=== PATIENT | male | born 1955 | race Caucasian/White ===

== ENCOUNTER 2020-02-23 11:37 | Day surgery (SDC) | payer OTHER ==
[2020-02-23] MEDS ORDERED: NA CHLORIDE 0.9% 500 ML ONE (12:15)
--- OUTSIDE RECORDS SUMMARY | 2020-02-23 12:32 | XMS REPORT | Clinical Summary ---
:1955 Author Organization [facility] Address [address] [place] [address] Care Team Providers Name Role Phone Nando Olson MD Primary Care Provider Allergies No Known Allergies Medications Medication Sig Dispensed Refills Start Date End Date Status allopurinol Take 100 mg by 5 08/19/2016 Ac tive (ZYLOPRIM) 100 MG mouth once tablet daily. calcitriol Take 0.25 mcg 0 10/08/2016 Acti ve (ROCALTROL) 0.25 MCG by mouth every capsule other day. calcium carbonate Take 1 tablet 3 10/05/2016 Active oyster shell by mouth 2 (OS-AMBERLY) 500 mg (two) times a calcium (1,250 mg) day. tablet ELIQUIS 2.5 mg Take 2.5 mg by 2 10/06/2016 Active tablet mouth 2 (two) times a day. rosuvastatin Take 5 mg by 1 10/15/2016 Act jose (CRESTOR) 5 MG mouth once tablet daily. RENVELA 800 mg TAKE 2 TABLET 5 09/16/2016 Active tablet BY MOUTH WITH EACH MEAL carvedilol (COREG) 12.5 mg 2 0 10/14/2016 Active 6.25 MG tablet (two) times a day with meals. multivitamin capsule Take 1 capsule 0 Active by mouth daily. aspirin (ECOTRIN) 81 Take 81 mg by 0 Active MG enteric coated mouth daily. tablet syringe with needle As Directed 20 each 0 02/22/2018 Active 3 mL 25 x 5/8" syringeIndications: Vitamin deficiency, Intestinal malabsorption, unspecified type omeprazole TAKE 1 CAPSULE 90 capsule 1 10/17/2018 Ac tive (PriLOSEC) 40 MG BY MOUTH EVERY capsuleIndications: DAY Morbid obesity due to excess calories (HCC), Status post bariatric surgery cyanocobalamin 1,000 INJEC 1 ML 3 mL 0 01/24/2020 Active mcg/mL INTO injectionIndications SHOULD,THIGH, : Vitamin OR BUTTOCKS deficiency, EVERY 30 DAYS Intestinal malabsorption, unspecified type cyanocobalamin 1,000 Inject 1 mL 6 mL 1 02/22/2018 Discontinued mcg/mL (1,000 mcg 0 injectionIndications total) into : Vitamin the shoulder, deficiency, thigh, or Intestinal buttocks every malabsorption, 30 (thirty) unspecified type days. Start 1 week after surgery. cyanocobalamin 1,000 INJEC 1 ML 3 mL 0 10/03/2019 02 Discontinued mcg/mL INTO 0 injectionIndications SHOULD,THIGH, : Vitamin OR BUTTOCKS deficiency, EVERY 30 DAYS Intestinal malabsorption, unspecified type Active Problems Problem Noted Date Difficulty swallowing 08/18/2017 Dysphagia 08/17/2017 Type 2 diabetes mellitus 05/19/2017 Encounters Date Type Specialty Care Team Description 01/24/2020 Refill General Surgery Ede Garcia MD Vitamin deficiency; Intestinal jazmín bsorption, unspecified type 12/25/2019 Telephone General Surgery Amber Locke MA 12/12/2019 Refill General Surgery Ede Garcia MD Vitamin deficiency; Intestinal jazmín bsorption, unspecified type 10/02/2019 Refill General Surgery Ede Garcia MD Vitamin deficiency; Intestinal jazmín bsorption, unspecified type after 02/22/2019 Family History Medical History Relation Name Comments Diabetes Mother Hypertension Mother Relation Name Status Comments Mother Social History Tobacco Use Types Packs/Day Years Used Date Former Smoker Cigarettes 1.5 40 Quit: 2016 Smokeless Tobacco: Former User Chew Q uit: 1975 Alcohol Use Drinks/Week oz/Week Comments No Sex Assigned at Date Recorded Not on file Job Start Date Occupation Industry Not on file Not on file Not on file Travel History Travel Start Travel End No recent travel history available. Last Filed Vital Signs Not on file Plan of Treatment Health Maintenance Due Date Last Done Comments DIABETIC RETINAL EYE EXAM 1955 DIABETIC FOOT EXAM 1965 URINE MICROALBUMIN 1965 COLONOSCOPY SCREENING 2005 SHINGLES VACCINES (#1) 2005 INFLUENZA VACCINE 03/23/2020 Implants Implanted Type Area Associate Doctor Device Shelf Model / Identifier Expiration Serial / Date Lot Drain Wound Hbls Round Radopaq Trocar Delmy White 0.18in 15fr - [id number] Surgical N/A: N/A [employer] 9 / Implanted: 08/17/2017 at [facility] (Quantity not on file) Imp lants; [employer] / Expanders; [employer] Extenders; Surgical Wires Results Not on fileafter 02/22/2019 Advance Directives For more information, please contact: [phone] Type Date Recorded Patient Activities Officer Explanati on Advance Directives, Living Will and Medical Power of Marine Engineer
--- OUTSIDE RECORDS SUMMARY | 2020-02-23 12:33 | XMS REPORT | Continuity of Care Document ---
:1955 Author Organization [facility] Care Team Providers Name Role Phone [facility] Unavailable Un available Problems Problem Status Onset Classification Date Comments Sourc e Date Reported N18.6 Active 017 [facility] WOUND INFECTION Active 017 [place] Infection 03/07/2017 following a 017 [place] procedure, initial encounter Arteriovenous 03/07/2017 fistula, acquired 017 [place] ESRD Active 017 [facility] Anxiety (finding) Active Problem 06/04/2017 H OPID 012 [facility] Coronary Active Problem 06/04/2017 [facility] arteriosclerosis [place], (disorder) [facility] Conduction Active Problem 06/04/2017 [place] disorder of [place], heart (disorder) [facility] Cerebrovascular Active Problem 06/04/2017 OPID accident [facility], (disorder) [facility] Dependence on Active Problem 06/04/2017 not using at OPID continuous this time [facility] , positive airway pressure [facility] ventilation (finding) Diabetes mellitus Active Problem 06/04/2017 H OPID (disorder) [facility] End stage renal Active Problem 06/04/2017 Temporary fistula placed 2-3 months ago. pre op for fistula placement in left arm. 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/04/20171998 OPID infarction [facility] , (disorder) [facility] Obesity (disorder) Active Problem 06/04/2017 OPID [facility] Peripheral Active Problem 06/04/2017 [place]ber [facility] vascular disease [place], (disorder) [facility] Sleep apnea Active Problem 06/04/2017 OPID (finding) [facility] Medications Medication Details Route Status Patient Ordering Order Source Instructions Provider Date heparin 5,000 unit, Inactive Route: SUB-Q, 2016 [facility] Q8H, Dosing Weight 123.182, kg, Start date: 06/01/17 16:00:00 CDT, Duration: 30 day, Stop date: 07/01/17 8:00:00 EEO OFFICER Ofirmev 1,000 mg, Inactive Route: IV, 2016 [facility] ONCE, Dosing Weight 123.182, kg, Start date: 06/01/17 14:37:00 CDT, Stop date: 06/01/17 14:37:00 CDT Insulin Lispro Notes: Roll in Inactive palms of hands 2016 [facility] gently; Do not shake `vigorously. (Same as: Humalog ) "Single Patient Use Only " WASTE: F/P - Black; E - Viblio Trash Bin Stable for 28 days at room temperature. Expires in days from D ate Acetazolamide 250 mg, Route: Inactive IV, ONCE, 2016 [facility] Dosing Weight 123.182, kg, PRN Cramps, Start date: 06/01/17 14:07:00 CDT Ondansetron Notes: (Same Inactive as: Zofran) 2016 [facility] MEDICATION WASTE Product Size: 4 mg Product Wasted: ___ mg Meperidine Notes: (Same Inactive as: Demerol) 2016 [facility] "Use Precaution in Elderly, Seizure disorders, and Renal impairment&quot ; Promethazine 6.25 mg, Route: Inactive IVPB, ONCE, 2016 [facility] Dosing Weight 123.182, kg, PRN Nausea & Vomiting, Start date: 06/01/17 14:07:00 CDT Fentanyl Notes: (Same Inactive as: Sublimaze) 2016 [facility] Preservative free. Hydromorphone 0.5 mg, 0.5 mL, Inactive 10/10/ M H Route: IVP, 2016 [facility] Drug form: INJ, Q5Min, Dosing Weight 123.182, kg, PRN Pain Score 7-10, Start date: 06/01/17 14:07:00 CDT, Duration: 4 doses or times, Stop date: Limited # of times Flumazenil Notes: (Same Inactive as: Romazicon) 2016 [facility] Naloxone Notes: Same as Inactive Narcan 2016 [facility] Diphenhydramine Notes: (Same Inactive as: Benadryl) 2016 [facility] Hydralazine Notes: (Same Inactive as: Apresoline) 2016 [facility] Push over 5 minutes Metoprolol Notes: (Same Inactive as: Lopressor) 2016 [facility] Push over 2 minutes Acetaminophen Notes: Max Inactive acetaminophen 2016 [facility] 4000 mg/day (4 gm/day). (Same as: Tylenol Extra Strength) Acetaminophen 300 2 tab, PO, Q4H, Active MG / Codeine PRN Pain Score 2016 [facility] Phosphate 30 MG 4-6, # 24 tab, Oral Tablet 0 Refill(s) Zofran Notes: (Same Inactive as: Zofran) 2016 [facility] MEDICATION WASTE Product Size: 4 mg Product Wasted: ___ mg acetaminophen-cod Notes: Do not Inactive eine #3 exceed 4gm/day 2016 [facility] of acetaminophen. (Same as: Tylenol with Codeine # 3) Acetaminophen Notes: Do not Inactive exceed 4 2016 [facility] gm/day. (Same as: Tylenol) vancomycin (ANES) Route: IV, Drug Inactive 06/01 form: INJ, 2016 [facility] ONCE, Stop date: 06/01/17 12:53:00 CDT propofol (ANES) Route: IV, Drug Inactive form: INJ, 2016 [facility] ONCE, Stop date: 06/01/17 12:53:00 CDT lidocaine (ANES) Route: IV, Drug Inactive form: INJ, 2016 [facility] ONCE, Stop date: 06/01/17 12:53:00 CDT fentaNYL (ANES) Route: IV, Drug Inactive form: INJ, 2017 [facility] ONCE, Stop date: 06/01/17 12:53:00 CDT Cefazolin 2 gm, Route: Inactive IVPB, Drug 2016 [facility] form: INJ, ONCALL, Dosing Weight 123.636, kg, Start date: 06/01/17 11:00:00 CDT, Duration: 1 doses or times, ABX Indication: Surgical Prophylaxis Vancomycin 1 gm, Route: Inactive IV, ONCE, 2016 [facility] Dosing Weight 123.636, kg, Start date: 06/01/17 10:14:00 CDT, Stop date: 06/01/17 10:14:00 CDT, ABX Indication: Surgical Prophylaxis Benadryl Notes: (Same Inactive as: Benadryl) 2016 [facility] Ceftriaxone 1 gm, Route: Inactive IVPB, Drug 2016 [facility] form: PDR/INJ, ONCE, Dosing Weight 123.636, kg, Priority: STAT, Start date: 03/04/17 16:11:00 CDT, Duration: 1 doses or times, Stop date: 03/04/17 16:11:00 CDT, ABX Indication: Skin/Soft Tissue Infection Vancomycin 2001 mg: Inactive infuse over 2.5 2016s t hours MEDICATION WASTE Product Size: 1000 mg Product Wasted: ___ mg Cephalexin 500 MG 500 mg = 1 cap, Active Oral Capsule PO, BID, X 10 2017 [place] [Keflex] day, # 20 cap, 0 Refill(s) doxycycline 100 mg = 1 tab, Active hyclate 100 MG PO, Q12H, X 10 [place] Oral Tablet day, # 20 tab, 0 Refill(s) heparin Notes: porcine Inactive heparin 2016 [facility] Metoclopramide Notes: (Same Inactive as: Reglan) 2016 [facility] Flumazenil Notes: (Same Inactive as: Romazicon) 2016 [facility] Naloxone Notes: Same as Inactive Narcan 2016 [facility] Fentanyl Notes: (Same Inactive as: Sublimaze) 2016 [facility] Preservative free. Ondansetron 4 mg, Route: Inactive IVP, ONCE, 2016 [facility] Dosing Weight 124.091, kg, PRN Nausea & Vomiting, Start date: 02/26/17 11:26:00 CDT Labetalol Notes: (Same Inactive as: Normodyne, 2016 [facility] Trandate) Push over 2 minutes Give bolus over 2-3 minutes. Hydralazine Notes: (Same Inactive as: Apresoline) 2016 [facility] t Push over 5 minutes Acetaminophen 300 2 tab, PO, Q4H, Active MG / Codeine PRN Pain Score 2016 [place] Phosphate 30 MG 4-6, # 24 tab, Oral Tablet 0 Refill(s) Zofran Notes: (Same Inactive as: Zofran) 2016 [facility] MEDICATION WASTE Product Size: 4 mg Product Wasted: ___ mg acetaminophen-cod Notes: Do not Inactive eine #3 exceed 4gm/day 2016 [facility] of acetaminophen. (Same as: Tylenol with Codeine # 3) Acetaminophen Notes: Do not Inactive exceed 4 2016 [facility] gm/day. (Same as: Tylenol) protamine (ANES) Route: IV, Drug Inactive form: INJ, 2016 [facility] , Stop date: 02/26/17 10:10:00 CDT heparin (ANES) Route: IV, Drug Inactive form: INJ, 2016 [facility] , Stop date: 02/26/17 10:06:00 CDT propofol (ANES) Route: IV, Drug Inactive form: INJ, 2016 [facility] , Stop date: 02/26/17 9:41:00 CDT fentaNYL (ANES) Route: IV, Drug Inactive form: INJ, 2016 [facility] , Stop date: 02/26/17 9:31:00 CDT midazolam (ANES) Route: IV, Drug Inactive form: SOLN, 2016, Stop date: 02/26/17 9:26:00 CDT vancomycin (ANES) Route: IV, Drug Inactive 02/26 (ANES) form: INJ, 2016 [facility] Start date: 02/26/17 9:09:00 CDT, Stop date: 02/26/17 10:09:00 CDT sodium chloride Route: IV, Inactive 0.9% 500 ml INJ Total Volume: 2016 [place] (ANES) 500, Start date: 02/26/17 8:49:00 CDT, Stop date: 02/26/17 9:49:00 CDT Cefazolin Notes: Same as: Inactive Ancef 2017 [facility] insulin detemir 15 UNITS, Active 100 UNT/ML SUB-Q, BID, am 2017 [facility] est Injectable AND pm MEALS Solution [Levemir] Probiotic Formula 1 cap, PO, Active Daily, 2016 [facility] PROBIOTIC PEARLS COMPLETE( DIGESTIVE hEALTH) Multiple Vitamins 1 tab, PO, Active oral tablet Daily, 2016 [facility] SPECTRAVITE ( ULTRA MEN 50 PLUS) Calcium Carbonate 250 mg, PO, BID Active 2016 [facility] ferrous sulfate 325 mg = 1 tab, Active 325 mg oral PO, TID 2016 [facility] enteric coated tablet calcitriol 0.25 0.25 microgram Active H mcg oral capsule = 1 cap, PO, 2016 [place] Every Other Day rosuvastatin 5 mg 5 mg = 1 tab, Active oral tablet PO, Daily 2016 [facility] allopurinol 100 50 mg, PO, Active mg oral tablet Daily 2016 [facility] Hydralazine 50 mg = 1 tab, Active Hydrochloride 50 PO, TID [address] [facility] [address] MG Oral Tablet carvedilol 6.25 6.25 mg = 1 Active mg oral tablet tab, PO, BID 2016 [place] gabapentin 100 MG 200 mg = 2 cap, Active Oral Capsule PO, AFTER 2017 [facility] DIALYSIS sevelamer 800 mg = 1 tab, Active carbonate 800 MG PO, TID-Meals 2016 [place] Oral Tablet [Renvela] Sodium 650 mg = 1 tab, Active Bicarbonate 650 PO, TID 2016 [facility] t MG Oral Tablet Furosemide 40 MG 40 mg = 1 tab, Active Oral Tablet PO, Bedtime 2016 [facility] t Furosemide 40 MG 80 mg = 2 tab, Active Oral Tablet PO, QAM 2016 [facility] apixaban 2.5 MG 2.5 mg = 1 tab, Active Oral Tablet PO, BID 2016 [facility] [Eliquis] Allergies, Adverse Reactions, Alerts Substance Category Reaction Severity Reaction Status Date Comments S ource type Reported NKFA Assertion Drug Active allergy [place] Immunizations No Data Provided for This Section Results Order Name Results Value Reference Date Interpretation Comments [place] [facility] CHEM PANEL POC BUN 35 7 - 22 06/01 [facility] CHEM PANEL POC Glucose 118 70 - 99 06/01 [facility] CHEM PANEL POC Sodium 142 135 - 145 06/01 [facility] CHEM PANEL POC 4.6 3.5 - 5.1 06/01 Potassium [facility] CHEM PANEL POC Chloride 101 95 - 109 06/01 [facility] CHEM PANEL POC 11.6 14.0 - 10 Hemoglobin 18.0 [facility] CHEM PANEL POC 34.0 42.0 - 06/01 Hematocrit 54.0 [facility] HEMATOLOGY POC 12.2 14.0 - 06/01 Hemoglobin 18.0 [facility] HEMATOLOGY POC 36.0 42.0 - 10 Hematocrit 54.0 [facility] HEMATOLOGY POC BUN 33 7 - 22 06/01 [facility] HEMATOLOGY POC Glucose 173 70 - 99 06/01 [facility] HEMATOLOGY POC Chloride 100 95 - 109 06/01 [facility] HEMATOLOGY POC 4.3 3.5 - 5.1 06/01 Potassium [facility] HEMATOLOGY POC Sodium 142 135 - 145 06/01 [facility] CHEM PANEL eGFR 11 03/04 Comment: The [facility] eGFR is calculated using the CKD-EPI formula. In most young, healthy individuals the eGFR will be >90 mL/min/1.73m2 . The eGFR declines with age. An eGFR of 60-89 may be normal in some populations, particularly the elderly, for whom the CKD-EPI formula has not been extensively validated. Use of the eGFR is not recommended in the following populations:< br/>
Deirdre viduals with unstable creatinine concentration s, including patients and those with serious co-morbid conditions.<b r/>
Patie nts with extremes in muscle mass or diet.

The data above are obtained from the National Kidney Disease Education Program (NKDEP) which additionally recommends that when the eGFR is used in patients with extremes of body mass index for purposes of drug dosing, the eGFR should be multiplied by the estimated BMI. CHEM PANEL AGAP 10.8 10.0 - 03/04 MH 20.0 /2016 [facility] CHEM PANEL Calcium Lvl 9.2 8.5 - 10.5 03/04 [facility] CHEM PANEL BUN 35 7 - 22 03/04 [facility] CHEM PANEL Creatinine 5.40 0.50 - 07 MH Lvl 1.40 /2017 [facility] CHEM PANEL Glucose Lvl 156 70 - 99 03/04 [facility] CHEM PANEL Sodium Lvl 138 135 - 145 03/04 [facility] CHEM PANEL Potassium 3.8 3.5 - 5.1 / MH Lvl /2016 [facility] CHEM PANEL Chloride Lvl 97 95 - 109 03/04 [facility] CHEM PANEL CO2 34 24 - 32 03/04 [facility] HEMATOLOGY Segs-Bands # 5.4 1.5 - 8.1 03/04 /2016 [facility] HEMATOLOGY Basophils 0.5 0.0 - 1.0 03/04 [facility] HEMATOLOGY Monocytes # 1.1 0.0 - 0.8 03/04 [facility] HEMATOLOGY Lymphocytes 3.4 1.0 - 5.5 03/04 MH # /2017 [facility] HEMATOLOGY Basophils # 0.1 0.0 - 0.2 03/04 [facility] HEMATOLOGY Eosinophils 0.4 0.0 - 0.5 / MH # /2016 [facility] HEMATOLOGY Segs 52.7 45.0 - 03/04 MH 75.0 /2017 [facility] HEMATOLOGY Lymphocytes 32.9 20.0 - 03/04 MH 40.0 /2017 [facility] HEMATOLOGY Monocytes 10.3 2.0 - 12.0 03/04 /2016 [facility] HEMATOLOGY Eosinophils 3.6 0.0 - 4.0 03/04 /2016 [facility] HEMATOLOGY MCV 91.1 80.0 - 03/04 MH 94.0 /2017 [facility] HEMATOLOGY RBC 4.52 4.70 - 03/04 MH 6.10 /2016 [facility] HEMATOLOGY Hgb 13.5 14.0 - 03/04 MH 18.0 /2016 [facility] HEMATOLOGY MCH 29.9 27.0 - 03/04 MH 31.0 /2016 [facility] HEMATOLOGY Hct 41.2 42.0 - 03/04 MH 54.0 /2016 [facility] HEMATOLOGY MPV 8.1 7.4 - 10.4 03/04 /2016 [facility] HEMATOLOGY MCHC 32.8 32.0 - 03/04 MH 36.0 /2016 [facility] HEMATOLOGY RDW 14.1 11.5 - 03/04 MH 14.5 /2016 [facility] HEMATOLOGY Platelet 114 133 - 450 03/04 /2016 [facility] HEMATOLOGY WBC 10.3 3.7 - 10.4 03/04 /2016 [facility] HEMATOLOGY POC 13.9 14.0 - 02/26 Hemoglobin 18.0 /2016 [facility] HEMATOLOGY POC Glucose 126 70 - 99 02/26 /2016 [facility] HEMATOLOGY POC BUN 43 7 - 22 02/26 /2016 [facility] HEMATOLOGY POC 41.0 42.0 - 02/26 Hematocrit 54.0 /2016 [facility] HEMATOLOGY POC 4.1 3.5 - 5.1 02/26 Potassium /2016 [facility] HEMATOLOGY POC Chloride 103 95 - 109 02/26 /2016 [facility] HEMATOLOGY POC Sodium 142 135 - 145 02/26 /2016 [facility] ELECTROLYTE POC Sodium 141 135 - 145 02/26 S /2016 [facility] ELECTROLYTE POC BUN 46 7 - 22 02/26 S /2016 [facility] ELECTROLYTE POC Chloride 103 95 - 109 02/26 S /2016 [facility] ELECTROLYTE POC 4.3 3.5 - 5.1 02/26 S Potassium /2016 [facility] ELECTROLYTE POC Glucose 163 70 - 99 02/26 S /2016 [facility] ELECTROLYTE POC 15.6 14.0 - 02/26 S Hemoglobin 18.0 /2016 [facility] ELECTROLYTE POC 46.0 42.0 - 02/26 S Hematocrit 54.0 /2016 [facility] BLOOD BANK ABO/Rh O POS 02/24 RESULTS /2016 [facility] BLOOD BANK Antibody Negative 02/24 RESULTS Scrn (02/24/17 10:22 AM) /2016 [facility] est ELECTROLYTE AGAP 13.1 10.0 - 02/24 S 20.0 [facility] ELECTROLYTE eGFR 11 02/24 Result Comment: The [facility] eGFR is calculated using the CKD-EPI formula. In most young, healthy individuals the eGFR will be >90 mL/min/1.73m2 . The eGFR declines with age. An eGFR of 60-89 may be normal in some populations, particularly the elderly, for whom the CKD-EPI formula has not been extensively validated. Use of the eGFR is not recommended in the following populations:< br/>
Deirdre viduals with unstable creatinine concentration s, including patients and those with serious co-morbid conditions.<b r/>
Patie nts with extremes in muscle mass or diet.

The data above are obtained from the National Kidney Disease Education Program (NKDEP) which additionally recommends that when the eGFR is used in patients with extremes of body mass index for purposes of drug dosing, the eGFR should be multiplied by the estimated BMI. ELECTROLYTE Calcium Lvl 9.3 8.5 - 10.5 07/ S [facility] ELECTROLYTE Chloride Lvl 102 95 - 109 07/05 S [facility] ELECTROLYTE CO2 28 24 - 32 07/ S /2016 [facility] ELECTROLYTE Sodium Lvl 139 135 - 145 07/ S [facility] ELECTROLYTE Potassium 4.1 3.5 - 5.1 07/ S Lvl /2016 [facility] ELECTROLYTE Creatinine 5.30 0.50 - 07/ S Lvl 1.40 /2016 [facility] ELECTROLYTE BUN 47 7 - 22 07/ S /2016 [facility] ELECTROLYTE Glucose Lvl 129 70 - 99 / S [facility] HEMATOLOGY PT 12.7 12.0 - 07 14.7 /2016 [facility] HEMATOLOGY INR 0.93 0.85 - 07/05 1.17 /2016 [facility] HEMATOLOGY PTT 28.3 22.9 - 07 35.8 /2016 [facility] HEMATOLOGY MPV 8.7 7.4 - 10.4 02/24 [facility] HEMATOLOGY Platelet 120 133 - 450 07/ [facility] HEMATOLOGY MCHC 32.9 32.0 - 07/ 36.0 /2016 [facility] HEMATOLOGY RDW 14.7 11.5 - 07/ 14.5 /2016 [facility] HEMATOLOGY RBC 4.73 4.70 - 07/05 6.10 /2017 [facility] HEMATOLOGY Hgb 14.1 14.0 - 07/ 18.0 /2017 [facility] HEMATOLOGY WBC 12.8 3.7 - 10.4 07/ [facility] HEMATOLOGY MCV 90.2 80.0 - 07/ 94.0 /2016 [facility] HEMATOLOGY Hct 42.7 42.0 - 07/ 54.0 /2016 [facility] MCH 29.7 27.0 - 07/05 31.0 /2017 [facility] Basophils # 0.1 0.0 - 0.2 07/ [facility] HEMATOLOGY Monocytes 8.0 2.0 - 12.0 07/ /2016 [facility] HEMATOLOGY Basophils 1.0 0.0 - 1.0 / /2016 [facility] HEMATOLOGY Segs-Bands # 7.6 1.5 - 8.1 02/24 /2016 [facility] HEMATOLOGY Eosinophils 3.4 0.0 - 4.0 / /2016 [facility] HEMATOLOGY Lymphocytes 3.6 1.0 - 5.5 / # /2017 [facility] HEMATOLOGY Lymphocytes 28.2 20.0 - 07 MH 40.0 /2017 [facility] HEMATOLOGY Eosinophils 0.4 0.0 - 0.5 / # /2017 [facility] HEMATOLOGY Monocytes # 1.0 0.0 - 0.8 02/24 /2016 [facility] HEMATOLOGY Segs 59.4 45.0 - 07 75.0 /2016 [facility] SPECIAL Hgb A1C 8.0 <=5.6 % 02/24 CHEMISTRY /2016 [facility] Pathology Reports No Data Provided for This Section Diagnostic Reports Report Value Date Source Chest 1view DX Chest 1view DX 02/24/2017 [facility] CLINICAL HISTORY:pre-op for fistula placement in left arm, temporary fistula placed 2-3 months ago - pre-op for fistula placement in left arm, temporary fistula placed 2-3 months ago COMPARISON: 10/10/2010 FINDINGS: Limited AP portable study. SUPPORT DEVICES: Right IJ ca theter terminates in the region of SVC right atrial junction. LUNGS: Lungs are reasonably well inflated. No consolidation or any significant effusion. No pneumothorax is evident. Small granuloma, left lung base. CARDIOVASCULAR: Cardiac silh ouette size is within normal limits. No pulmonary edema. MEDIASTINUM/NORMA: Trachea is midline. No contour abnormality is noted. Calcified lymph nodes are noted at the left hilum unchanged from previous study. BONE AND SOFT TISSUES: No ac carmen abnormality is noted. Left shoulder arthroplasty. IMPRESSION: No acute abnormality is noted in the chest. SL: [id number] Consultation Notes No Data Provided for This Section Discharge Summaries No Data Provided for This Section History and Physicals No Data Provided for This Section Vital Signs Vital Sign Value Date Comments Source Systolic (mm Hg) 120 06/01/2017 [facility] Diastolic (mm Hg) 70 06/01/2017 [facility] Respitory Rate 15 06/01/2017 [facility] Systolic (mm Hg) 108 06/01/2017 [facility] [place] Diastolic (mm Hg) 56 06/01/[address] Respitory Rate 19 06/01/2017 [place] Systolic (mm Hg) 118 06/01/2017 [place] Diastolic (mm Hg) 70 06/01/[address] Respitory Rate 10 06/01/2017 [place] Temperature Oral (F) 98.5 F 06/01/2017 [facility] BMI Calculated 38.97 05/31/2017 [facility] Height 177.8 cm 05/31/2017 [facility] Weight 123.182 05/31/2017 [place] Systolic (mm Hg) 126 03/04/2017 [place] Diastolic (mm Hg) 88 03/04/2017 [facility] st Temperature Oral (F) 97.9 F 03/04/2017 [place] Respitory Rate 20 03/04/2017 [facility] Heart Rate 70 03/04/2017 [facility] Respitory Rate 20 03/04/2017 [facility] Heart Rate 70 03/04/2017 [facility] Systolic (mm Hg) 128 03/04/2017 [place] Diastolic (mm Hg) 71 03/04/2017 [facility] st BMI Calculated 42.69 03/04/2017 [facility] Height 170.18 cm 03/04/2017 [facility] Weight 123.636 03/04/2017 [place] Respitory Rate 20 03/04/2017 [facility] Heart Rate 73 03/04/2017 [facility] Temperature Oral (F) 99 F 03/04/2017 [place] Systolic (mm Hg) 131 03/04/2017 [place] Diastolic (mm Hg) 67 03/04/[address] Respitory Rate 18 02/26/2017 [place] Systolic (mm Hg) 137 02/26/2017 [place] Diastolic (mm Hg) 76 02/26/[address] Respitory Rate 8 02/26/2017 [place] Systolic (mm Hg) 127 02/26/2017 [place] Diastolic (mm Hg) 74 02/26/[address] Respitory Rate 13 02/26/2017 [place] Systolic (mm Hg) 133 02/26/2017 [place] Diastolic (mm Hg) 71 02/26/2017 [facility] st Temperature Oral (F) 97.9 F 02/26/2017 [place] Heart Rate 73 02/24/2017 [facility] Temperature Oral (F) 99.2 F 02/24/2017 [facility] Weight 124.091 02/24/2017 [facility] BMI Calculated 39.25 02/24/2017 [facility] Height 177.8 cm 02/24/2017 [facility] Encounters Location Location Encounter Encounter Reason Attending ADM [place] Stat us Source Details Type Number For Provider Date Date Visit [facility] Outpt Diag [id number] [facility] 02/24 02/25 [facility] [facility] [id number] Elder 02/26 02/26 [facility] [id number] Bill Khan 03/04 03/04 [facility]2016 [facility] [id number] Elder 06/01 06/01 [facility] Procedures Procedure Code Date Perfomer Comments Source Central line [id number] [facility]<sup>1</s 7 up> AV - Creation [place] [id number] [facility] [place]iovenous 6 fistula Procedure<sup>2, [id number] left ACL [facility] [place]</sup> repairLeft knee arthroscopy Procedure [id number] OPID [facility] Procedure<sup>1, [id number] left ACL [facility] 2</sup> repairLeft knee [facility] , arthroscopy [facility] Assessment and Plan Assessment and Plan Date Source Extracted from:Title: Clinical Document 02/26/2017 [facility] Author: Elder Reynolds MD Date: 02/26/17 PATIENT NAME: SIMONE WALLER DATE OF OPERATION: 02/26/2017 PREOPERATIVE DIAGNOSES: 1. End-stage renal disease. 2. Diabetes. 3. History of stroke. 4. Hypertension. POSTOPERATIVE DIAGNOSES: 1. End-stage renal disease. 2. Diabetes. 3. History of stroke. 4. Hypertension. PROCEDURE(S): 1. Left arm venogram. 2. Creation of left wrist AV fistula. 3. Superior venacavogram. SURGEON: Elder Reynolds MD WASTEWATER ANALYST: CHANTAL Martines ANESTHESIA: General by [place]. ESTIMATED BLOOD LOSS: 10. COMPLICATIONS: None. COUNTS: Correct. SPECIMENS: None. FINDINGS: Radial artery had an excellent pulse. It is somewhat calcified. There was excellent flow through the fistula post procedure. Strong Doppler signal in the hand. The vein was of good size and caliber. The cephalic vein is not in continuity in t he upper arm. However, the cephalic vein is in continuity through a very large medial cubital branch to the basilic and drains through an excellent basilic system. There is no central venous obstruction. DISPOSITION: PACU stable. HISTORY: The patient is a 61-year-old male with e nd-stage kidney disease. He currently receives dialysis via right internal jugular vein tunnel dialysis catheter. He needs long-term dialysis access and comes to the hospital today for creation of the s aretha. Appropriate informed consent was obtained after risks, benefits and alternatives were described. PROCEDURE: The patient was brought to the operating room and placed supine on the operating room table. After a satisfactory induction of anesthesia, the left upper extremity was prepped and draped in a usual fas ion. The skin overlying the distal radiu s was anesthetized with lidocaine and a longitudinal incision was made. Through this incision, the cephalic vein was isolated. A side branch was clipped and ligat ed distally. An angiocath was placed int o the side branch into the cephalic vein proper and venograms and central venous imaging studies were then performed using real-time digital subtraction angiograp hy. Having identified the venous anatomy and being quite satisfied, we elected to proceed. The catheter was removed. The side branch was doubly ligated. The vein was then mobilized extensively. The radi al artery was next mobilized extensively . Small branches were divided between clips. The patient was heparinized.. The vein was ligated and divided distally. The distal end was spatulated and prepared f or anastomosis. The radial arteries were controlled and opened with an 11-blade scissors. An end-to-side anastomosis was then fashioned between vein and artery using 7-0 Prolene in a running fashi on. The anastomosis was de-aired and con trol was released. The anastomosis was hemostatic. Doppler value evaluation of the fistula revealed excellent flow with excellent diastolic runoff. Evaluation of the hand revealed excellent triphasic Do ppler signals in the deep and superficial palmar arches. Protamine was then administered. The wound was irrigated with antibiotic solution, closed in layers and d ressed. There were no complications. The patient was extubated and brought to the PACU in stable condition. Elder Reynolds MD Date Dictated: 02/26/2017 Date Transcribed: 02/26/2017 TT/MEERA Plan of Care No Data Provided for This Section Social History Social History Date Source Social History TypeResponse 05/31/2017 [facility] Substance Abuse Use: None. Exercise Self assessment: Fair condition. Exercise type: Walking. Employment/School Status: Employed. 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 Alcohol Current, Type Beer. Frequency: 1-2 times per year. Smoking Status Former smoker; Type: Cigarettes; Ready t o change: No; Concerns about tobacco use in household: No; Exposure to Tobacco Smoke None; Cigarette Smoking Last 365 Days No; Reg Smoking Cessation Counseling No1 1quit last 2015 Social History TypeResponse 02/24/2017 VLADIMIR ibrahim Substance Abuse Use: None. Exercise Exercise type: Walking. Employment/School Status: Employed. 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 Alcohol Never Smoking Status Former smoker; Ready to change: No; Conc erns about tobacco use in household: No; Exposure to Tobacco Smoke None; Cigarette Smoking Last 365 Days No; Reg Smoking Cessation Counseling No1 1quit last 2015 Family History No Data Provided for This Section Advance Directives No Data Provided for This Section Functional Status No Data Provided for This Section
[2020-02-23] MEDS ORDERED: FUROSEMIDE 40 MG/4 ML VIAL ONE (15:18)
[2020-02-23] MEDS ORDERED: NA CHLORIDE 0.9% 250 ML ONE (15:36)
[2020-02-23 16:59] VITALS: BMI 31.7
[2020-02-23 17:03] VITALS: O2SAT 95
[2020-02-23 18:34] VITALS: BP 156/63; TEMP 99.1
[2020-02-23 19:37] LABS: Hematocrit 23.1 % (39.6-49.0)
== END 2020-02-23 19:30 | disposition home or self-care (01) ==
LOC: DS 11:37
PROVIDERS: ATTEND Internal Medicine
DX: N18.6 End stage renal disease (principal); D63.1 Anemia in chronic kidney disease
CPT/HCPCS: 36415; 86900; 86850; 86901; 85018; 85014; 36430; J1940; P9016 ×2; J7030; J7040

== ENCOUNTER 2020-03-01 11:15 | Day surgery (SDC) | payer OTHER ==
[2020-03-01] MEDS ORDERED: NA CHLORIDE 0.9% 500 ML ONE (11:32)
--- OUTSIDE RECORDS SUMMARY | 2020-03-01 11:45 | XMS REPORT | Clinical Summary ---
:1955 Author Organization [facility] Address [address] [place] [address] Care Team Providers Name Role Phone Nando [...] unspecified type 12/25/2019 Telephone General Surgery Amber Reynolds MA 12/12/2019 Refill General Surgery Ede Garcia MD Vitamin deficiency; Intestinal jazmín bsorption, unspecified type 10/02/2019 Refill General Surgery Ede Garcia MD Vitamin deficiency; Intestinal jazmín bsorption, unspecified type after 03/01/2019 Family History Medical History Relation Name Comments [...] INFLUENZA VACCINE 03/23/2020 Implants Implanted Type Area Skip Pit Worker Device Shelf Model / Identifier Expiration Serial / Date Lot Drain Wound Hbls Round Radopaq Trocar Delmy White 0.18in 15fr - [id number] Surgical N/A: N/A [employer] DIV OF 9 / Implanted: 08/17/2017 at [facility] (Quantity not on file) Imp lants; [employer] & / Expanders; [employer]URA Extenders; Surgical Wires Results Not on fileafter 03/01/2019 Advance Directives For more information, please contact: [phone] Type Date Recorded 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
--- OUTSIDE RECORDS SUMMARY | 2020-03-01 11:47 | XMS REPORT | Continuity of Care Document ---
:1955 Author Organization [employer] Care Team Providers Name Role Phone [employer] Unavailable Un available Problems Problem Status Onset Classification Date Comments Sourc e Date Reported N18.6 Active 017 [facility] WOUND INFECTION Active 017 [place] Infection 03/07/2017 following a 017 [place] procedure, initial encounter Arteriovenous 03/07/2017 fistula, acquired 017 [place] ESRD Active 017 [facility] Anxiety (finding) Active Problem 06/04/2017 H OPID 012 [facility] Coronary Active Problem 06/04/2017 [facility] arteriosclerosis [place], (disorder) [facility] Conduction Active Problem 06/04/2017 [facility] disorder of the [place], heart (disorder) [facility] Cerebrovascular Active Problem 06/04/2017 OPID accident [facility], (disorder) [facility] Dependence on Active Problem 06/04/2017 not using at OPID continuous this time [facility] , positive airway pressure [facility] ventilation (finding) Diabetes mellitus Active Problem 06/04/2017 H OPID (disorder) [facility] End stage renal Active Problem 06/04/2017 Temporary fistula placed 2-3 months ago. pre op for fistula placement in left arm. OPID disease (disorder) hemodialysi s at home [facility] Fracture of Resolved Problem 06/04/20172012 OPID shoulder [facility], (disorder) [facility] Hyperlipidemia Active Problem 06/04/2017 O PID (disorder) [facility] Hypertensive Active Problem 06/04/2017 OPI D disorder, systemic [place], arterial (disorder) [facility] Intracranial Resolved Problem 06/04/2017 patietn had O PID venous thrombosis stroke [place], (disorder) [facility] Myocardial Resolved Problem 06/04/20171998 OPID infarction [facility] , (disorder) [facility] Obesity (disorder) Active Problem 06/04/2017 OPID [facility] Peripheral Active Problem 06/04/2017 amber OP[facility] vascular disease [place], (disorder) [facility] Sleep apnea Active Problem 06/04/2017 OPID (finding) [facility] Medications Medication Details Route Status Patient Ordering Order Source Instructions Provider Date heparin 5,000 unit, Inactive Route: SUB-Q, 2016 [facility] Q8H, Dosing Weight 123.182, kg, Start date: 06/01/17 16:00:00 CDT, Duration: 30 day, Stop date: 07/01/17 8:00:00 [employer]IST [employer] 1,000 mg, Inactive Route: IV, 2016 [facility] ONCE, Dosing Weight 123.182, kg, Start date: 06/01/17 14:37:00 CDT, Stop date: 06/01/17 14:37:00 CDT Insulin Lispro Notes: Roll in Inactive palms of hands 2016 [facility] gently; Do not shake `vigorously. (Same as: Humalog ) "Single Patient Use Only " WASTE: F/P - Black; E - [employer] Trash Bin Stable for 28 days at room temperature. Expires in days from D ate Acetazolamide 250 mg, Route: Inactive IV, ONCE, 2016 [facility] Dosing Weight 123.182, kg, PRN Cramps, Start date: 06/01/17 14:07:00 CDT Ondansetron Notes: (Same Inactive as: Zofran) 2016 [facility] MEDICATION WASTE Product Size: 4 mg Product Wasted: ___ mg Meperidine Notes: (Same Inactive as: Demerol) 2016 [facility] "Use Precaution in Elderly, Seizure disorders, and Renal impairment&quot ; Promethazine 6.25 mg, Route: Inactive IVPB, ONCE, 2016 [facility] Dosing Weight 123.182, kg, PRN Nausea & Vomiting, Start date: 06/01/17 14:07:00 CDT Fentanyl Notes: (Same Inactive as: Sublimaze) 2016 [facility] Preservative free. Hydromorphone 0.5 mg, 0.5 mL, Inactive 10/10/ M H Route: IVP, 2016 [facility] Drug form: INJ, Q5Min, Dosing Weight 123.182, kg, PRN Pain Score 7-10, Start date: 06/01/17 14:07:00 CDT, Duration: 4 doses or times, Stop date: Limited # of times Flumazenil Notes: (Same Inactive as: Romazicon) 2016 [facility] Naloxone Notes: Same as Inactive Narcan 2016 [facility] Diphenhydramine Notes: (Same Inactive as: Benadryl) 2016 [facility] Hydralazine Notes: (Same Inactive as: Apresoline) 2016 [facility] Push over 5 minutes Metoprolol Notes: (Same Inactive as: Lopressor) 2016 [facility] Push over 2 minutes Acetaminophen Notes: Max Inactive acetaminophen 2016 [facility] 4000 mg/day (4 gm/day). (Same as: Tylenol Extra Strength) Acetaminophen 300 2 tab, PO, Q4H, Active MG / Codeine PRN Pain Score 2016 [facility] Phosphate 30 MG 4-6, # 24 tab, Oral Tablet 0 Refill(s) Zofran Notes: (Same Inactive as: Zofran) 2016 [facility] MEDICATION WASTE Product Size: 4 mg Product Wasted: ___ mg acetaminophen-cod Notes: Do not Inactive eine #3 exceed 4gm/day 2016 [facility] of acetaminophen. (Same as: Tylenol with Codeine # 3) Acetaminophen Notes: Do not Inactive exceed 4 2016 [facility] gm/day. (Same as: Tylenol) vancomycin (ANES) Route: IV, Drug Inactive 06/01 form: INJ, 2016 [facility] ONCE, Stop date: 06/01/17 12:53:00 CDT propofol (ANES) Route: IV, Drug Inactive form: INJ, 2016 [facility] ONCE, Stop date: 06/01/17 12:53:00 CDT lidocaine (ANES) Route: IV, Drug Inactive form: INJ, 2016 [facility] ONCE, Stop date: 06/01/17 12:53:00 CDT fentaNYL (ANES) Route: IV, Drug Inactive form: INJ, 2017 [facility] ONCE, Stop date: 06/01/17 12:53:00 CDT Cefazolin 2 gm, Route: Inactive IVPB, Drug 2016 [facility] form: INJ, ONCALL, Dosing Weight 123.636, kg, Start date: 06/01/17 11:00:00 CDT, Duration: 1 doses or times, ABX Indication: Surgical Prophylaxis Vancomycin 1 gm, Route: Inactive IV, ONCE, 2016 [facility] Dosing Weight 123.636, kg, Start date: 06/01/17 10:14:00 CDT, Stop date: 06/01/17 10:14:00 CDT, ABX Indication: Surgical Prophylaxis Benadryl Notes: (Same Inactive as: Benadryl) 2016 [facility] Ceftriaxone 1 gm, Route: Inactive IVPB, Drug 2016 [facility] form: PDR/INJ, ONCE, Dosing Weight 123.636, [...] Oral Capsule PO, BID, X 10 2017 [place] [Keflex] day, # 20 cap, 0 Refill(s) doxycycline 100 mg = 1 tab, Active hyclate 100 MG PO, Q12H, X 10 2017 [place] Oral Tablet day, # 20 tab, 0 Refill(s) heparin Notes: porcine Inactive heparin 2016 [facility] Metoclopramide Notes: (Same Inactive as: Reglan) 2016 [facility] Flumazenil Notes: (Same Inactive as: Romazicon) 2016 [facility] Naloxone Notes: Same as Inactive Narcan 2016 [facility] Fentanyl Notes: (Same Inactive as: Sublimaze) 2016 [facility] Preservative free. Ondansetron 4 mg, Route: Inactive IVP, ONCE, 2016 [facility] Dosing Weight 124.091, kg, PRN Nausea & Vomiting, Start date: 02/26/17 11:26:00 CDT Labetalol Notes: (Same Inactive as: Normodyne, 2016 [facility] Trandate) Push over 2 minutes Give bolus over 2-3 minutes. Hydralazine Notes: (Same Inactive as: Apresoline) 2016 [facility] t Push over 5 minutes Acetaminophen 300 2 tab, PO, Q4H, Active MG / Codeine PRN Pain Score 2016 [place] Phosphate 30 MG 4-6, # 24 tab, Oral Tablet 0 Refill(s) Zofran Notes: (Same Inactive as: Zofran) 2016 [facility] MEDICATION WASTE Product Size: 4 mg Product Wasted: ___ mg acetaminophen-cod Notes: Do not Inactive eine #3 exceed 4gm/day 2016 [facility] of acetaminophen. (Same as: Tylenol with Codeine # 3) Acetaminophen Notes: Do not Inactive exceed 4 2016 [facility] gm/day. (Same as: Tylenol) protamine (ANES) Route: IV, Drug Inactive form: INJ, 2016 [facility] , Stop date: 02/26/17 10:10:00 CDT heparin (ANES) Route: IV, Drug Inactive form: INJ, 2016 [facility] , Stop date: 02/26/17 10:06:00 CDT propofol (ANES) Route: IV, Drug Inactive form: INJ, 2016 [facility] , Stop date: 02/26/17 9:41:00 CDT fentaNYL (ANES) Route: IV, Drug Inactive form: INJ, 2016 [facility] , Stop date: 02/26/17 9:31:00 CDT midazolam (ANES) Route: IV, Drug Inactive form: SOLN, 2016, Stop date: 02/26/17 9:26:00 CDT vancomycin (ANES) Route: IV, Drug Inactive 02/26 (ANES) form: INJ, 2016 [facility] Start date: 02/26/17 9:09:00 CDT, Stop date: 02/26/17 10:09:00 CDT sodium chloride Route: IV, Inactive 0.9% 500 ml INJ Total Volume: 2016 [place] (ANES) 500, Start date: 02/26/17 8:49:00 CDT, Stop date: 02/26/17 9:49:00 CDT Cefazolin Notes: Same as: Inactive Ancef 2017 [facility] insulin detemir 15 UNITS, Active 100 UNT/ML SUB-Q, BID, am 2017 [facility] est Injectable AND pm MEALS Solution [Levemir] Probiotic Formula 1 cap, PO, Active Daily, 2016 [facility] PROBIOTIC PEARLS COMPLETE( DIGESTIVE hEALTH) Multiple Vitamins 1 tab, PO, Active oral tablet Daily, 2016 [facility] SPECTRAVITE ( ULTRA MEN 50 PLUS) Calcium Carbonate 250 mg, PO, BID Active 2016 [facility] ferrous sulfate 325 mg = 1 tab, Active 325 mg oral PO, TID 2016 [facility] enteric coated tablet calcitriol 0.25 0.25 microgram Active H mcg oral capsule = 1 cap, PO, 2016 [place] Every Other Day rosuvastatin 5 mg 5 mg = 1 tab, Active oral tablet PO, Daily 2016 [facility] allopurinol 100 50 mg, PO, Active mg oral tablet Daily 2016 [facility] Hydralazine 50 mg = 1 tab, Active Hydrochloride 50 PO, TID [address] [facility] [address] MG Oral Tablet carvedilol 6.25 6.25 mg = 1 Active mg oral tablet tab, PO, BID 2016 [place] [facility] gabapentin 100 MG 200 mg = 2 cap, Active Oral Capsule PO, AFTER 2017 [facility] DIALYSIS sevelamer 800 mg = 1 tab, Active carbonate 800 MG PO, TID-Meals 2016 [place] Oral Tablet [Renvela] Sodium 650 mg = 1 tab, Active Bicarbonate 650 PO, TID 2016 [facility] t MG Oral Tablet Furosemide 40 MG 40 mg = 1 tab, Active Oral Tablet PO, Bedtime 2016 [facility] t Furosemide 40 MG 80 mg = 2 tab, Active Oral Tablet PO, QAM 2016 [facility] apixaban 2.5 MG 2.5 mg = 1 tab, Active Oral Tablet PO, BID 2016 [facility] [Eliquis] Allergies, Adverse Reactions, Alerts Substance Category Reaction Severity Reaction Status Date Comments S ource type Reported NKFA Assertion Drug Active allergy [place] Immunizations No Data Provided for This Section Results Order Name Results Value Reference Date Interpretation Comments Mary rce Range CHEM PANEL POC BUN 35 7 - 22 06/01 [facility] CHEM PANEL POC Glucose 118 70 - 99 06/01 [facility] CHEM PANEL POC Sodium 142 135 - 145 06/01 [facility] CHEM PANEL POC 4.6 3.5 - 5.1 06/01 Potassium [facility] CHEM PANEL POC Chloride 101 95 - 109 06/01 [facility] CHEM PANEL POC 11.6 14.0 - 10 Hemoglobin 18.0 [facility] CHEM PANEL POC 34.0 42.0 - 06/01 Hematocrit 54.0 [facility] HEMATOLOGY POC 12.2 14.0 - 06/01 Hemoglobin 18.0 [facility] HEMATOLOGY POC 36.0 42.0 - 10 Hematocrit 54.0 [facility] HEMATOLOGY POC BUN 33 7 - 22 06/01 [facility] HEMATOLOGY POC Glucose 173 70 - 99 06/01 [facility] HEMATOLOGY POC Chloride 100 95 - 109 06/01 [facility] HEMATOLOGY POC 4.3 3.5 - 5.1 06/01 Potassium [facility] HEMATOLOGY POC Sodium 142 135 - 145 06/01 [facility] CHEM PANEL eGFR 11 03/04 Comment: The [facility] eGFR is calculated using the CKD-EPI [...] 10.8 10.0 - 03/04 MH 20.0 /2016 [facility] CHEM PANEL Calcium Lvl 9.2 8.5 - 10.5 03/04 [facility] CHEM PANEL BUN 35 7 - 22 03/04 [facility] CHEM PANEL Creatinine 5.40 0.50 - 07 MH Lvl 1.40 /2017 [facility] CHEM PANEL Glucose Lvl 156 70 - 99 03/04 [facility] CHEM PANEL Sodium Lvl 138 135 - 145 03/04 [facility] CHEM PANEL Potassium 3.8 3.5 - 5.1 / MH Lvl /2016 [facility] CHEM PANEL Chloride Lvl 97 95 - 109 03/04 [facility] CHEM PANEL CO2 34 24 - 32 03/04 [facility] HEMATOLOGY Segs-Bands # 5.4 1.5 - 8.1 03/04 /2016 [facility] HEMATOLOGY Basophils 0.5 0.0 - 1.0 03/04 [facility] HEMATOLOGY Monocytes # 1.1 0.0 - 0.8 03/04 [facility] HEMATOLOGY Lymphocytes 3.4 1.0 - 5.5 03/04 MH # /2017 [facility] HEMATOLOGY Basophils # 0.1 0.0 - 0.2 03/04 [facility] HEMATOLOGY Eosinophils 0.4 0.0 - 0.5 / MH # /2016 [facility] HEMATOLOGY Segs 52.7 45.0 - 03/04 MH 75.0 /2017 [facility] HEMATOLOGY Lymphocytes 32.9 20.0 - 03/04 MH 40.0 /2017 [facility] HEMATOLOGY Monocytes 10.3 2.0 - 12.0 03/04 /2016 [facility] HEMATOLOGY Eosinophils 3.6 0.0 - 4.0 03/04 /2016 [facility] HEMATOLOGY MCV 91.1 80.0 - 03/04 MH 94.0 /2017 [facility] HEMATOLOGY RBC 4.52 4.70 - 03/04 MH 6.10 /2016 [facility] HEMATOLOGY Hgb 13.5 14.0 - 03/04 MH 18.0 /2016 [facility] HEMATOLOGY MCH 29.9 27.0 - 03/04 MH 31.0 /2016 [facility] HEMATOLOGY Hct 41.2 42.0 - 03/04 MH 54.0 /2016 [facility] HEMATOLOGY MPV 8.1 7.4 - 10.4 03/04 /2016 [facility] HEMATOLOGY MCHC 32.8 32.0 - 03/04 MH 36.0 /2016 [facility] HEMATOLOGY RDW 14.1 11.5 - 03/04 MH 14.5 /2016 [facility] HEMATOLOGY Platelet 114 133 - 450 03/04 /2016 [facility] HEMATOLOGY WBC 10.3 3.7 - 10.4 03/04 /2016 [facility] HEMATOLOGY POC 13.9 14.0 - 02/26 Hemoglobin 18.0 /2016 [facility] HEMATOLOGY POC Glucose 126 70 - 99 02/26 /2016 [facility] HEMATOLOGY POC BUN 43 7 - 22 02/26 /2016 [facility] HEMATOLOGY POC 41.0 42.0 - 02/26 Hematocrit 54.0 /2016 [facility] HEMATOLOGY POC 4.1 3.5 - 5.1 02/26 Potassium /2016 [facility] HEMATOLOGY POC Chloride 103 95 - 109 02/26 /2016 [facility] HEMATOLOGY POC Sodium 142 135 - 145 02/26 /2016 [facility] ELECTROLYTE POC Sodium 141 135 - 145 02/26 S /2016 [facility] ELECTROLYTE POC BUN 46 7 - 22 02/26 S /2016 [facility] ELECTROLYTE POC Chloride 103 95 - 109 02/26 S /2016 [facility] ELECTROLYTE POC 4.3 3.5 - 5.1 02/26 S Potassium /2016 [facility] ELECTROLYTE POC Glucose 163 70 - 99 02/26 S /2016 [facility] ELECTROLYTE POC 15.6 14.0 - 02/26 S Hemoglobin 18.0 /2016 [facility] ELECTROLYTE POC 46.0 42.0 - 02/26 S Hematocrit 54.0 /2016 [facility] BLOOD BANK ABO/Rh O POS 02/24 RESULTS /2016 [facility] BLOOD BANK Antibody Negative 02/24 RESULTS Scrn (02/24/17 10:22 AM) /2016 [facility] est ELECTROLYTE AGAP 13.1 10.0 - 02/24 S 20.0 [facility] ELECTROLYTE eGFR 11 02/24 Result Comment: The [facility] eGFR is calculated using the CKD-EPI [...] Lvl 9.3 8.5 - 10.5 07/ S [facility] ELECTROLYTE Chloride Lvl 102 95 - 109 07/05 S [facility] ELECTROLYTE CO2 28 24 - 32 07/ S /2016 [facility] ELECTROLYTE Sodium Lvl 139 135 - 145 07/ S [facility] ELECTROLYTE Potassium 4.1 3.5 - 5.1 07/ S Lvl /2016 [facility] ELECTROLYTE Creatinine 5.30 0.50 - 07/ S Lvl 1.40 /2016 [facility] ELECTROLYTE BUN 47 7 - 22 07/ S /2016 [facility] ELECTROLYTE Glucose Lvl 129 70 - 99 / S [facility] HEMATOLOGY PT 12.7 12.0 - 07 14.7 /2016 [facility] HEMATOLOGY INR 0.93 0.85 - 07/05 1.17 /2016 [facility] HEMATOLOGY PTT 28.3 22.9 - 07 35.8 /2016 [facility] HEMATOLOGY MPV 8.7 7.4 - 10.4 02/24 [facility] HEMATOLOGY Platelet 120 133 - 450 07/ [facility] HEMATOLOGY MCHC 32.9 32.0 - 07/ 36.0 /2016 [facility] HEMATOLOGY RDW 14.7 11.5 - 07/ 14.5 /2016 [facility] HEMATOLOGY RBC 4.73 4.70 - 07/05 6.10 /2017 [facility] HEMATOLOGY Hgb 14.1 14.0 - 07/ 18.0 /2017 [facility] HEMATOLOGY WBC 12.8 3.7 - 10.4 07/ [facility] HEMATOLOGY MCV 90.2 80.0 - 07/ 94.0 /2016 [facility] HEMATOLOGY Hct 42.7 42.0 - 07/ 54.0 /2016 [facility] MCH 29.7 27.0 - 07/05 31.0 /2017 [facility] Basophils # 0.1 0.0 - 0.2 07/ [facility] HEMATOLOGY Monocytes 8.0 2.0 - 12.0 07/ /2016 [facility] HEMATOLOGY Basophils 1.0 0.0 - 1.0 / /2016 [facility] HEMATOLOGY Segs-Bands # 7.6 1.5 - 8.1 02/24 /2016 [facility] HEMATOLOGY Eosinophils 3.4 0.0 - 4.0 / /2016 [facility] HEMATOLOGY Lymphocytes 3.6 1.0 - 5.5 / # /2017 [facility] HEMATOLOGY Lymphocytes 28.2 20.0 - 07 MH 40.0 /2017 [facility] HEMATOLOGY Eosinophils 0.4 0.0 - 0.5 / # /2017 [facility] HEMATOLOGY Monocytes # 1.0 0.0 - 0.8 02/24 /2016 [facility] HEMATOLOGY Segs 59.4 45.0 - 07 75.0 /2016 [facility] SPECIAL Hgb A1C 8.0 <=5.6 % 02/24 CHEMISTRY /2016 [facility] Pathology Reports No Data Provided for This Section Diagnostic Reports Report Value Date Source Chest 1view DX Chest 1view DX 02/24/2017 VLADIMIR [facility] CLINICAL HISTORY:pre-op for fistula placement in left [...] study. BONE AND SOFT TISSUES: No ac [place] abnormality is noted. Left shoulder arthroplasty. IMPRESSION: No acute abnormality is noted in the chest. SL: [id number] Consultation Notes No Data Provided for This Section Discharge Summaries No Data Provided for This Section History and Physicals No Data Provided for This Section Vital Signs Vital Sign Value Date Comments Source Systolic (mm Hg) 120 06/01/2017 [facility] Diastolic (mm Hg) 70 06/01/2017 [facility] Respitory Rate 15 06/01/2017 [facility] Systolic (mm Hg) 108 06/01/2017 [facility] [place] Diastolic (mm Hg) 56 06/01/[address] Respitory Rate 19 06/01/2017 [place] Systolic (mm Hg) 118 06/01/2017 [place] Diastolic (mm Hg) 70 06/01/[address] Respitory Rate 10 06/01/2017 [place] Temperature Oral (F) 98.5 F 06/01/2017 [place] BMI Calculated 38.97 05/31/2017 [facility] Height 177.8 cm 05/31/2017 [facility] Weight 123.182 05/31/2017 [place] Systolic (mm Hg) 126 03/04/2017 [place] Diastolic (mm Hg) 88 03/04/[address] [facility] [address] Temperature Oral (F) 97.9 F 03/04/2017 [place] Respitory Rate 20 03/04/2017 [facility] Heart Rate 70 03/04/2017 [facility] Respitory Rate 20 03/04/2017 [facility] Heart Rate 70 03/04/2017 [facility] Systolic (mm Hg) 128 03/04/2017 [place] Diastolic (mm Hg) 71 03/04/[address] [facility] [address] BMI Calculated 42.69 03/04/2017 [facility] Height 170.18 cm 03/04/2017 [facility] Weight 123.636 03/04/2017 [place] Respitory Rate 20 03/04/2017 [facility] Heart Rate 73 03/04/2017 [facility] Temperature Oral (F) 99 F 03/04/2017 [place] [...] [place] Diastolic (mm Hg) 71 02/26/[address] [facility] [address] Temperature Oral (F) 97.9 F 02/26/2017 [place] Heart Rate 73 02/24/2017 [facility] Temperature Oral (F) 99.2 F 02/24/2017 [facility] Weight 124.091 02/24/2017 [facility] BMI Calculated 39.25 02/24/2017 [facility] Height 177.8 cm 02/24/2017 [facility] Encounters Location Location Encounter Encounter Reason Attending ADM OH Stat us Source Details Type Number For Provider Date Date Visit [facility] Outpt Diag [id number] [facility] 02/24 02/25 [facility] [id number] Elder 02/26 02/26 [facility] [place] [facility] [id number] Bill Khan 03/04 03/04 [facility]2016 [facility] [id number] Elder 06/01 06/01 [facility] [place] [facility] Procedures Procedure Code Date Perfomer Comments Source Central [id number] [facility]<sup>[facility]</s 7 up> AV - Creation of [id number] [facility] arteriovenous 6 fistula Procedure<sup>2, [id number] left ACL [facility] 3</sup> repairLeft knee arthroscopy Procedure [id number] OPID [facility] Procedure<sup>1, [id number] left ACL [facility] 2</sup> repairLeft knee [facility] , arthroscopy [facility] Assessment and Plan Assessment and Plan Date Source Extracted from:Title: Clinical Document 02/26/2017 [facility] Author: Elder Reynolds MD Date: 02/26/17 PATIENT NAME: SIMONE WALLER DATE OF OPERATION: 02/26/2017 PREOPERATIVE DIAGNOSES: 1. End-stage renal disease. 2. Diabetes. 3. History of stroke. 4. Hypertension. POSTOPERATIVE DIAGNOSES: 1. End-stage renal disease. 2. Diabetes. 3. History of stroke. 4. Hypertension. PROCEDURE(S): 1. Left arm venogram. 2. Creation of left wrist AV fistula. 3. Superior venacavogram. SURGEON: Elder Reynolds MD COMMERCIAL REAL ESTATE ASSISTANT: CHANTAL Martines ANESTHESIA: General by [place]. ESTIMATED [...] History Date Source Social History TypeResponse 05/31/2017 [facility] Substance Abuse Use: None. Exercise Self assessment: [...]
[2020-03-01] MEDS ORDERED: FUROSEMIDE 40 MG/4 ML VIAL ONE (13:46)
[2020-03-01 14:10] VITALS: BMI 31.7
[2020-03-01 16:41] VITALS: BP 153/59; O2SAT 94
[2020-03-01 17:37] VITALS: TEMP 99.1
[2020-03-01 17:43] LABS: Hematocrit 25.7 % (39.6-49.0)
== END 2020-03-01 17:35 | disposition home or self-care (01) ==
LOC: DS 11:15
PROVIDERS: ATTEND Internal Medicine
DX: N18.3 Chronic kidney disease, stage 3 (moderate) (principal); D63.1 Anemia in chronic kidney disease
CPT/HCPCS: 36415; 86900; 86850; 86901; 85018; 85014; 36430; J1940; P9016 ×2; J7050

== ENCOUNTER 2020-07-31 11:25 | Day surgery (SDC) | payer OTHER ==
[2020-07-29 13:53] LABS: Basophils % 2.3 % (0-1.3); Hematocrit 34.2 % (39.6-49.0); Lymphocytes % 18.5 % (15.3-44.8); MPV 9.1 fL (7.6-11.3); RBC Red Blood Cell Count 3.67 M/uL (4.33-5.43)
[2020-07-29 14:05] LABS: Potassium 3.7 mmol/L (3.5-5.1)
[2020-07-29 14:08] LABS: Protime INR 1.23
--- NOTE | 2020-07-29 14:16 | RAD REPORT ---
EXAM DESCRIPTION: Donaldo Nova And Rere (2 Views)07/29/2020 2:01 pm CLINICAL HISTORY: Preop for cardiac catheterization/shortness of breath COMPARISON: 2017 FINDINGS: Small to moderate bilateral pleural effusions with basilar atelectasis There may be mild interstitial pulmonary edema Heart is probably mildly enlarged
[2020-07-29 15:42] LABS: Anisocytosis 1+; Blood Morphology Comment NOTED (NOT SEEN); Platelet Estimate DECR; Poikilocytosis 1+; White Blood Cell Scan OK (OK)
--- OUTSIDE RECORDS SUMMARY | 2020-07-30 16:56 | XMS REPORT | Clinical Summary ---
:1955 Author Organization [facility] Address [address] [place] [address] Care Team Providers Name Role Phone Nando Olson MD Primary Care Provider Allergies No Known Active Allergies Medications Medication Sig Dispensed Refills Start End Date Status Date allopurinol Take 100 mg by 5 Act jose (ZYLOPRIM) 100 MG mouth once 6 tablet daily. calcitriol Take 0.25 mcg 0 Activ e (ROCALTROL) 0.25 by mouth every 7 MCG capsule other day. calcium carbonate Take 1 tablet 3 Active oyster shell by mouth 2 7 (OS-AMBERLY) 500 mg (two) times a calcium (1,250 mg) day. tablet ELIQUIS 2.5 mg Take 2.5 mg by 2 Active tablet mouth 2 (two) 7 times a day. rosuvastatin Take 5 mg by 1 Acti ve (CRESTOR) 5 MG mouth once 7 tablet daily. RENVELA 800 mg TAKE 2 TABLET 5 A ctive tablet BY MOUTH WITH 7 EACH MEAL carvedilol (COREG) 12.5 mg 2 0 A ctive 6.25 MG tablet (two) times a 7 day with meals. multivitamin Take 1 capsule 0 Ac tive capsule by mouth daily. aspirin (ECOTRIN) Take 81 mg by 0 Active 81 MG enteric mouth daily. 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 Start 1 week after surgery. 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, unspecified type cyanocobalamin INJECT 1 3 mL 0 06/26/20 Disco ntinued 1,000 mcg/mL MILLILITER 0 20 (Reord er) injectionIndication INTO SHOULDER, s: Vitamin THIGH, OR deficiency, BUTTOCKS ONCE 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, unspecified type Active Problems Problem Noted Date Difficulty swallowing 08/18/2017 Dysphagia 08/17/2017 Type 2 diabetes mellitus 05/19/2017 Encounters Date Type Specialty Care Team Description 06/26/2020 Telephone General Surgery Elsa Khan LVN 06/26/2020 Orders Only General Surgery Erin, Elsa, TELEVISION OPERATOR Vitamin deficiency; Intestinal jazmín bsorption, unspecified type 06/25/2020 Refill General Surgery Deepika Jo Vitamin defi ciency; Andreia, GLOBAL MOBILITY SPECIALIST Intestinal jazmín bsorption, unspecified type 04/14/2020 Refill General Surgery Deepika Jo Vitamin defi ciency; Andreia, GLOBAL MOBILITY SPECIALIST Intestinal jazmín bsorption, unspecified type 01/24/2020 Refill General Surgery Ede Garcia MD Vitamin deficiency; Intestinal jazmín bsorption, unspecified type 12/25/2019 Telephone General Surgery Rodolfo JuanjoselesviagerardoADARSH Blanca 12/12/2019 Refill General Surgery Ede Garcia MD Vitamin deficiency; Intestinal jazmín bsorption, unspecified type 10/02/2019 Refill General Surgery Ede Garcia MD Vitamin deficiency; Intestinal jazmín bsorption, unspecified type after 07/30/2019 Surgical History Surgery Date Site/Laterality Comments ANTERIOR CRUCIATE LIGAMENT 08/23/1983 - Left REPAIR 08/22/1984 TUNNELED VENOUS CATHETER 11/21/2016 - Right PLACEMENT 12/20/2016 DIALYSIS FISTULA CREATION 02/20/2017 - Left Left A rm 03/22/2017 TOTAL SHOULDER ARTHROPLASTY 08/23/2008 - Left 08/22/2009 EXTRACORPOREAL SHOCK WAVE 08/23/2011 - LITHOTRIPSY 08/22/2012 COLONOSCOPY GASTRECTOMY, SLEEVE, 08/17/2017 Abdomen/N/A Procedure: LAPAROSCOPIC GASTRECTOMY, SLE ANTONELLA, LAPAROSCOPIC; Surgeon: Ede lin MD; Location: [facility]; Servic e: General; Latera lity: N/A; Medical devices from this surgery are in the Implants sec tion. REPAIR, HIATAL HERNIA, 08/17/2017 Abdomen/N/A Procedure : REPAIR, LAPAROSCOPIC HIATAL HERNIA, LAPAROSCOPIC; Surgeon: Ede lin MD; Location: [facility]; Servic e: General; Latera lity: N/A; Medical devices from this surgery are in the Implants sec tion. Medical History Medical History Date Comments Gout Hypertension Obesity Diabetes mellitus (HCC) Chronic kidney disease Anemia History of transfusion 2013 Myocardial infarct (HCC) 2007 Kidney stones 2016 ESRD (end stage renal disease) on dialysis (HCC) Type 2 diabetes mellitus (HCC) Hyperlipidemia Lymphedema of lower extremity Left-sided weakness s/p stroke Wears glasses Bronchitis Stomach ulcer Coronary artery disease Anesthesia NHAP/NFHAP. full den tures Sleep apnea with use of continuous positive doesn't tolerate cpap airway pressure (CPAP) Exercises rarely pt denies chest pain or sob when climbing 2 flight of stairs. states is limited by knee p ain [place] (hard of hearing) no hearing aides Stroke (HCC) 1994, 2001, 2009, 20 17 Knee pain, bilateral AVF (arteriovenous fistula) ([facility]) left l ower arm Family History Medical History Relation Name Comments Diabetes Mother Hypertension Mother Relation Name Status Comments Mother Social History Tobacco Use Types Packs/Day Years Used Date Former Smoker Cigarettes 1.5 40 Quit: 2015 Smokeless Tobacco: Former User Chew Q uit: 1974 Alcohol Use Drinks/Week oz/Week Comments No Sex Assigned at Date Recorded Not on file Last Filed Vital Signs Not on file Plan of Treatment Health Maintenance Due Date Last Done Comments DIABETES: RETINAL EYE EXAM 1965 DIABETIC FOOT EXAM 1965 COLONOSCOPY SCREENING 2005 SHINGLES VACCINES (#1) 2005 INFLUENZA VACCINE 03/23/2020 65+ PNEUMOCOCCAL VACCINE (1 of 1 - PPSV23) 2020 Implants Implanted Type Area Nursing Unit Manager Device Shelf Model / Identifier Expiration Serial / Date Lot Drain Wound Hbls Round Radopaq Trocar Delmy White 0.18in 15fr - [id number] Surgical N/A: N/A [employer] / Implanted: 08/17/2017 at [facility] (Quantity not on file) Imp lants; [employer] / Expanders; [employer] Extenders; Surgical Wires Results Not on fileafter 07/30/2019 Advance Directives For more information, please contact: [phone] Type Date Recorded Patient Wet Trimmer Explanati on Advance Directives, Living Will and Medical Power of School Speech Language Pathologist
--- OUTSIDE RECORDS SUMMARY | 2020-07-30 16:57 | XMS REPORT | Continuity of Care Document ---
:1955 Author Organization [facility] Care Team Providers Name Role Phone [facility] Unavailable Un available Problems Problem Status Onset Classification Date Comments Sourc e Date Reported N18.6 Active 017 [facility] WOUND INFECTION Active 017 [place] Infection 03/07/2017 following a 017 [place] procedure, initial encounter Arteriovenous 03/07/2017 fistula, acquired 017 [place] ESRD Active 017 [facility] Anxiety (finding) Active Problem 06/04/2017 H OPID 012 [facility] Coronary Active Problem 06/04/2017 OPID arteriosclerosis [place], (disorder) [facility] Conduction Active Problem 06/04/2017 [place] disorder of the [place], heart (disorder) [facility] Cerebrovascular Active Problem 06/04/2017 OPID accident [facility], (disorder) [facility] Dependence on Active Problem 06/04/2017 not using at OPID continuous this time [facility] , positive airway pressure [facility] ventilation (finding) Diabetes mellitus Active Problem 06/04/2017 H OPID (disorder) [facility] End stage renal Active Problem 06/04/2017 Temporary fistula placed 2-3 months ago. pre op for fistula placement in left arm. OPID disease (disorder) hemodialysi s at home [facility] Fracture of Resolved Problem 06/04/20172012 OPID shoulder [facility], (disorder) [facility] Hyperlipidemia Active Problem 06/04/2017 O PID (disorder) [facility] Hypertensive Active Problem 06/04/2017 OPI D disorder, systemic [place], arterial (disorder) [facility] Intracranial Resolved Problem 06/04/2017 patietn had O PID venous thrombosis stroke [place], (disorder) [facility] Myocardial Resolved Problem 06/04/20171998 OPID infarction [facility] , (disorder) [facility] Obesity (disorder) Active Problem 06/04/2017 OPID [facility] Peripheral Active Problem 06/04/2017 amber OPID vascular disease [place], (disorder) [facility] Sleep apnea Active Problem 06/04/2017 OPID (finding) [facility] Medications Medication Details Route Status Patient Ordering Order Source Instructions Provider Date heparin 5,000 unit, Inactive Route: SUB-Q, 2016 [facility] Q8H, Dosing Weight 123.182, kg, Start date: 06/01/17 16:00:00 CDT, Duration: 30 day, Stop date: 07/01/17 8:00:00 CONE [employer]AK[employer] MACHINE Ofirmev 1,000 mg, Inactive Route: IV, 2016 [facility] ONCE, Dosing Weight 123.182, kg, Start date: 06/01/17 14:37:00 CDT, Stop date: 06/01/17 14:37:00 CDT Insulin Lispro Notes: Roll in Inactive palms of hands 2016 [facility] gently; Do not shake `vigorously. (Same as: Humalog ) "Single Patient Use Only " WASTE: F/P - Black; E - [employer] Trash Bin Stable for 28 days at room temperature. Expires in days from D ate Acetazolamide 250 mg, Route: Inactive IV, ONCE, 2016 [facility] Dosing Weight 123.182, kg, PRN Cramps, Start date: 06/01/17 14:07:00 CDT Ondansetron Notes: (Same Inactive as: Zofran) 2016 [facility] MEDICATION WASTE Product Size: 4 mg Product Wasted: ___ mg Meperidine Notes: (Same Inactive as: Demerol) 2016 [facility] "Use Precaution in Elderly, Seizure disorders, and Renal impairment&quot ; Promethazine 6.25 mg, Route: Inactive IVPB, ONCE, 2016 [facility] Dosing Weight 123.182, kg, PRN Nausea & Vomiting, Start date: 06/01/17 14:07:00 CDT Fentanyl Notes: (Same Inactive as: Sublimaze) 2016 [facility] Preservative free. Hydromorphone 0.5 mg, 0.5 mL, Inactive 10/10/ M H Route: IVP, 2016 [facility] Drug form: INJ, Q5Min, Dosing Weight 123.182, kg, PRN Pain Score 7-10, Start date: 06/01/17 14:07:00 CDT, Duration: 4 doses or times, Stop date: Limited # of times Flumazenil Notes: (Same Inactive as: Romazicon) 2016 [facility] Naloxone Notes: Same as Inactive Narcan 2016 [facility] Diphenhydramine Notes: (Same Inactive as: Benadryl) 2016 [facility] Hydralazine Notes: (Same Inactive as: Apresoline) 2016 [facility] Push over 5 minutes Metoprolol Notes: (Same Inactive as: Lopressor) 2016 [facility] Push over 2 minutes Acetaminophen Notes: Max Inactive acetaminophen 2016 [facility] 4000 mg/day (4 gm/day). (Same as: Tylenol Extra Strength) Acetaminophen 300 2 tab, PO, Q4H, Active MG / Codeine PRN Pain Score 2016 [facility] Phosphate 30 MG 4-6, # 24 tab, Oral Tablet 0 Refill(s) Zofran Notes: (Same Inactive as: Zofran) 2016 [facility] MEDICATION WASTE Product Size: 4 mg Product Wasted: ___ mg acetaminophen-cod Notes: Do not Inactive eine #3 exceed 4gm/day 2016 [facility] of acetaminophen. (Same as: Tylenol with Codeine # 3) Acetaminophen Notes: Do not Inactive exceed 4 2016 [facility] gm/day. (Same as: Tylenol) vancomycin (ANES) Route: IV, Drug Inactive 06/01 form: INJ, 2016 [facility] ONCE, Stop date: 06/01/17 12:53:00 CDT propofol (ANES) Route: IV, Drug Inactive form: INJ, 2016 [facility] ONCE, Stop date: 06/01/17 12:53:00 CDT lidocaine (ANES) Route: IV, Drug Inactive form: INJ, 2016 [facility] ONCE, Stop date: 06/01/17 12:53:00 CDT fentaNYL (ANES) Route: IV, Drug Inactive form: INJ, 2017 [facility] ONCE, Stop date: 06/01/17 12:53:00 CDT Cefazolin 2 gm, Route: Inactive IVPB, Drug 2016 [facility] form: INJ, ONCALL, Dosing Weight 123.636, kg, Start date: 06/01/17 11:00:00 CDT, Duration: 1 doses or times, ABX Indication: Surgical Prophylaxis Vancomycin 1 gm, Route: Inactive IV, ONCE, 2016 [facility] Dosing Weight 123.636, kg, Start date: 06/01/17 10:14:00 CDT, Stop date: 06/01/17 10:14:00 CDT, ABX Indication: Surgical Prophylaxis Benadryl Notes: (Same Inactive as: Benadryl) 2016 [facility] Ceftriaxone 1 gm, Route: Inactive IVPB, Drug 2016 [facility] form: PDR/INJ, ONCE, Dosing Weight 123.636, kg, [...] Oral Capsule PO, BID, X 10 2017 [facility] [Keflex] day, # 20 cap, 0 Refill(s) doxycycline 100 mg = 1 tab, Active hyclate 100 MG PO, Q12H, X 10 2017 [place] Oral Tablet day, # 20 tab, 0 Refill(s) heparin Notes: porcine Inactive heparin 2016 [facility] Metoclopramide Notes: (Same Inactive as: Reglan) 2016 [facility] Flumazenil Notes: (Same Inactive as: Romazicon) 2016 [facility] Naloxone Notes: Same as Inactive Narcan 2016 [facility] Fentanyl Notes: (Same Inactive as: Sublimaze) 2016 [facility] Preservative free. Ondansetron 4 mg, Route: Inactive IVP, ONCE, 2016 [facility] Dosing Weight 124.091, kg, PRN Nausea & Vomiting, Start date: 02/26/17 11:26:00 CDT Labetalol Notes: (Same Inactive as: Normodyne, 2016 [facility] Trandate) Push over 2 minutes Give bolus over 2-3 minutes. Hydralazine Notes: (Same Inactive as: Apresoline) 2016 [facility] t Push over 5 minutes Acetaminophen 300 2 tab, PO, Q4H, Active MG / Codeine PRN Pain Score 2016 [place] Phosphate 30 MG 4-6, # 24 tab, Oral Tablet 0 Refill(s) Zofran Notes: (Same Inactive as: Zofran) 2016 [facility] MEDICATION WASTE Product Size: 4 mg Product Wasted: ___ mg acetaminophen-cod Notes: Do not Inactive eine #3 exceed 4gm/day 2016 [facility] of acetaminophen. (Same as: Tylenol with Codeine # 3) Acetaminophen Notes: Do not Inactive exceed 4 2016 [facility] gm/day. (Same as: Tylenol) protamine (ANES) Route: IV, Drug Inactive form: INJ, 2016 [facility] , Stop date: 02/26/17 10:10:00 CDT heparin (ANES) Route: IV, Drug Inactive form: INJ, 2016 [facility] , Stop date: 02/26/17 10:06:00 CDT propofol (ANES) Route: IV, Drug Inactive form: INJ, 2016 [facility] , Stop date: 02/26/17 9:41:00 CDT fentaNYL (ANES) Route: IV, Drug Inactive form: INJ, 2016 [facility] , Stop date: 02/26/17 9:31:00 CDT midazolam (ANES) Route: IV, Drug Inactive form: SOLN, 2016, Stop date: 02/26/17 9:26:00 CDT vancomycin (ANES) Route: IV, Drug Inactive 02/26 (ANES) form: INJ, 2016 [facility] Start date: 02/26/17 9:09:00 CDT, Stop date: 02/26/17 10:09:00 CDT sodium chloride Route: IV, Inactive 0.9% 500 ml INJ Total Volume: 2016 [place] (ANES) 500, Start date: 02/26/17 8:49:00 CDT, Stop date: 02/26/17 9:49:00 CDT Cefazolin Notes: Same as: Inactive Ancef 2017 [facility] insulin detemir 15 UNITS, Active 100 UNT/ML SUB-Q, BID, am 2017 [facility] est Injectable AND pm MEALS Solution [Levemir] Probiotic Formula 1 cap, PO, Active Daily, 2016 [facility] PROBIOTIC PEARLS COMPLETE( DIGESTIVE hEALTH) Multiple Vitamins 1 tab, PO, Active oral tablet Daily, 2016 [facility] SPECTRAVITE ( ULTRA MEN 50 PLUS) Calcium Carbonate 250 mg, PO, BID Active 2016 [facility] ferrous sulfate 325 mg = 1 tab, Active 325 mg oral PO, TID 2016 [facility] enteric coated tablet calcitriol 0.25 0.25 microgram Active H mcg oral capsule = 1 cap, PO, 2016 [place] Every Other Day rosuvastatin 5 mg 5 mg = 1 tab, Active oral tablet PO, Daily 2016 [facility] allopurinol 100 50 mg, PO, Active mg oral tablet Daily 2016 [facility] Hydralazine 50 mg = 1 tab, Active Hydrochloride 50 PO, TID [address] [facility] [address] MG Oral Tablet carvedilol 6.25 6.25 mg = 1 Active mg oral tablet tab, PO, BID 2016 [place] gabapentin 100 MG 200 mg = 2 cap, Active Oral Capsule PO, AFTER 2017 [facility] DIALYSIS sevelamer 800 mg = 1 tab, Active carbonate 800 MG PO, TID-Meals 2016 [place] Oral Tablet [Renvela] Sodium 650 mg = 1 tab, Active Bicarbonate 650 PO, TID 2016 [facility] t MG Oral Tablet Furosemide 40 MG 40 mg = 1 tab, Active Oral Tablet PO, Bedtime 2016 [facility] t Furosemide 40 MG 80 mg = 2 tab, Active Oral Tablet PO, QAM 2016 [facility] apixaban 2.5 MG 2.5 mg = 1 tab, Active Oral Tablet PO, BID 2016 [facility] [Eliquis] Allergies, Adverse Reactions, Alerts Substance Category Reaction Severity Reaction Status Date Comments S ource type Reported NKFA Assertion Drug Active allergy [place] Immunizations No Data Provided for This Section Results Order Name Results Value Reference Date Interpretation Comments [place] [facility] Range CHEM PANEL POC BUN 35 7 - 22 06/01 [facility] CHEM PANEL POC Glucose 118 70 - 99 06/01 [facility] CHEM PANEL POC Sodium 142 135 - 145 06/01 [facility] CHEM PANEL POC 4.6 3.5 - 5.1 06/01 Potassium [facility] CHEM PANEL POC Chloride 101 95 - 109 06/01 [facility] CHEM PANEL POC 11.6 14.0 - 10 Hemoglobin 18.0 [facility] CHEM PANEL POC 34.0 42.0 - 06/01 Hematocrit 54.0 [facility] HEMATOLOGY POC 12.2 14.0 - 06/01 Hemoglobin 18.0 [facility] HEMATOLOGY POC 36.0 42.0 - 10 Hematocrit 54.0 [facility] HEMATOLOGY POC BUN 33 7 - 22 06/01 [facility] HEMATOLOGY POC Glucose 173 70 - 99 06/01 [facility] HEMATOLOGY POC Chloride 100 95 - 109 06/01 [facility] HEMATOLOGY POC 4.3 3.5 - 5.1 06/01 Potassium [facility] HEMATOLOGY POC Sodium 142 135 - 145 06/01 [facility] CHEM PANEL eGFR 11 03/04 Comment: The [facility] eGFR is calculated using the CKD-EPI formula. [...] 10.8 10.0 - 03/04 MH 20.0 /2016 [facility] CHEM PANEL Calcium Lvl 9.2 8.5 - 10.5 03/04 [facility] CHEM PANEL BUN 35 7 - 22 03/04 [facility] CHEM PANEL Creatinine 5.40 0.50 - 07 MH Lvl 1.40 /2017 [facility] CHEM PANEL Glucose Lvl 156 70 - 99 03/04 [facility] CHEM PANEL Sodium Lvl 138 135 - 145 03/04 [facility] CHEM PANEL Potassium 3.8 3.5 - 5.1 / MH Lvl /2016 [facility] CHEM PANEL Chloride Lvl 97 95 - 109 03/04 [facility] CHEM PANEL CO2 34 24 - 32 03/04 [facility] HEMATOLOGY Segs-Bands # 5.4 1.5 - 8.1 03/04 /2016 [facility] HEMATOLOGY Basophils 0.5 0.0 - 1.0 03/04 [facility] HEMATOLOGY Monocytes # 1.1 0.0 - 0.8 03/04 [facility] HEMATOLOGY Lymphocytes 3.4 1.0 - 5.5 03/04 MH # /2017 [facility] HEMATOLOGY Basophils # 0.1 0.0 - 0.2 03/04 [facility] HEMATOLOGY Eosinophils 0.4 0.0 - 0.5 / MH # /2016 [facility] HEMATOLOGY Segs 52.7 45.0 - 03/04 MH 75.0 /2017 [facility] HEMATOLOGY Lymphocytes 32.9 20.0 - 03/04 MH 40.0 /2017 [facility] HEMATOLOGY Monocytes 10.3 2.0 - 12.0 03/04 /2016 [facility] HEMATOLOGY Eosinophils 3.6 0.0 - 4.0 03/04 /2016 [facility] HEMATOLOGY MCV 91.1 80.0 - 03/04 MH 94.0 /2017 [facility] HEMATOLOGY RBC 4.52 4.70 - 03/04 MH 6.10 /2016 [facility] HEMATOLOGY Hgb 13.5 14.0 - 03/04 MH 18.0 /2016 [facility] HEMATOLOGY MCH 29.9 27.0 - 03/04 MH 31.0 /2016 [facility] HEMATOLOGY Hct 41.2 42.0 - 03/04 MH 54.0 /2016 [facility] HEMATOLOGY MPV 8.1 7.4 - 10.4 03/04 /2016 [facility] HEMATOLOGY MCHC 32.8 32.0 - 03/04 MH 36.0 /2016 [facility] HEMATOLOGY RDW 14.1 11.5 - 03/04 MH 14.5 /2016 [facility] HEMATOLOGY Platelet 114 133 - 450 03/04 /2016 [facility] HEMATOLOGY WBC 10.3 3.7 - 10.4 03/04 /2016 [facility] HEMATOLOGY POC 13.9 14.0 - 02/26 Hemoglobin 18.0 /2016 [facility] HEMATOLOGY POC Glucose 126 70 - 99 02/26 /2016 [facility] HEMATOLOGY POC BUN 43 7 - 22 02/26 /2016 [facility] HEMATOLOGY POC 41.0 42.0 - 02/26 Hematocrit 54.0 /2016 [facility] HEMATOLOGY POC 4.1 3.5 - 5.1 02/26 Potassium /2016 [facility] HEMATOLOGY POC Chloride 103 95 - 109 02/26 /2016 [facility] HEMATOLOGY POC Sodium 142 135 - 145 02/26 /2016 [facility] ELECTROLYTE POC Sodium 141 135 - 145 02/26 S /2016 [facility] ELECTROLYTE POC BUN 46 7 - 22 02/26 S /2016 [facility] ELECTROLYTE POC Chloride 103 95 - 109 02/26 S /2016 [facility] ELECTROLYTE POC 4.3 3.5 - 5.1 02/26 S Potassium /2016 [facility] ELECTROLYTE POC Glucose 163 70 - 99 02/26 S /2016 [facility] ELECTROLYTE POC 15.6 14.0 - 02/26 S Hemoglobin 18.0 /2016 [facility] ELECTROLYTE POC 46.0 42.0 - 02/26 S Hematocrit 54.0 /2016 [facility] BLOOD BANK ABO/Rh O POS 02/24 RESULTS /2016 [facility] BLOOD BANK Antibody Negative 02/24 RESULTS Scrn (02/24/17 10:22 AM) /2016 [facility] est ELECTROLYTE AGAP 13.1 10.0 - 02/24 S 20.0 [facility] ELECTROLYTE eGFR 11 02/24 Result Comment: The [facility] eGFR is calculated using the CKD-EPI formula. [...] Lvl 9.3 8.5 - 10.5 07/ S [facility] ELECTROLYTE Chloride Lvl 102 95 - 109 07/05 S [facility] ELECTROLYTE CO2 28 24 - 32 07/ S /2016 [facility] ELECTROLYTE Sodium Lvl 139 135 - 145 07/ S [facility] ELECTROLYTE Potassium 4.1 3.5 - 5.1 07/ S Lvl /2016 [facility] ELECTROLYTE Creatinine 5.30 0.50 - 07/ S Lvl 1.40 /2016 [facility] ELECTROLYTE BUN 47 7 - 22 07/ S /2016 [facility] ELECTROLYTE Glucose Lvl 129 70 - 99 / S [facility] HEMATOLOGY PT 12.7 12.0 - 07 14.7 /2016 [facility] HEMATOLOGY INR 0.93 0.85 - 07/05 1.17 /2016 [facility] HEMATOLOGY PTT 28.3 22.9 - 07 35.8 /2016 [facility] HEMATOLOGY MPV 8.7 7.4 - 10.4 02/24 [facility] HEMATOLOGY Platelet 120 133 - 450 07/ [facility] HEMATOLOGY MCHC 32.9 32.0 - 07/ 36.0 /2016 [facility] HEMATOLOGY RDW 14.7 11.5 - 07/ 14.5 /2016 [facility] HEMATOLOGY RBC 4.73 4.70 - 07/05 6.10 /2017 [facility] HEMATOLOGY Hgb 14.1 14.0 - 07/ 18.0 /2017 [facility] HEMATOLOGY WBC 12.8 3.7 - 10.4 07/ [facility] HEMATOLOGY MCV 90.2 80.0 - 07/ 94.0 /2016 [facility] HEMATOLOGY Hct 42.7 42.0 - 07/ 54.0 /2016 [facility] MCH 29.7 27.0 - 07/05 31.0 /2017 [facility] Basophils # 0.1 0.0 - 0.2 07/ [facility] HEMATOLOGY Monocytes 8.0 2.0 - 12.0 07/ /2016 [facility] HEMATOLOGY Basophils 1.0 0.0 - 1.0 / /2016 [facility] HEMATOLOGY Segs-Bands # 7.6 1.5 - 8.1 02/24 /2016 [facility] HEMATOLOGY Eosinophils 3.4 0.0 - 4.0 / /2016 [facility] HEMATOLOGY Lymphocytes 3.6 1.0 - 5.5 / # /2017 [facility] HEMATOLOGY Lymphocytes 28.2 20.0 - 07 MH 40.0 /2017 [facility] HEMATOLOGY Eosinophils 0.4 0.0 - 0.5 / # /2017 [facility] HEMATOLOGY Monocytes # 1.0 0.0 - 0.8 02/24 /2016 [facility] HEMATOLOGY Segs 59.4 45.0 - 07 75.0 /2016 [facility] SPECIAL Hgb A1C 8.0 <=5.6 % 02/24 CHEMISTRY /2016 [facility] Pathology Reports No Data Provided for This Section Diagnostic Reports Report Value Date Source Chest 1view DX Chest 1view DX 02/24/2017 VLADIMIR [facility] CLINICAL HISTORY:pre-op for fistula placement in [...] abnormality is noted in the chest. SL: [id number] Consultation Notes No Data Provided for This Section Discharge Summaries No Data Provided for This Section History and Physicals No Data Provided for This Section Vital Signs Vital Sign Value Date Comments Source Systolic (mm Hg) 120 06/01/2017 [facility] Diastolic (mm Hg) 70 06/01/2017 [facility] Respitory Rate 15 06/01/2017 [facility] Systolic (mm Hg) 108 06/01/2017 [facility] [place] Diastolic (mm Hg) 56 06/01/[address] Respitory Rate 19 06/01/2017 [place] Systolic (mm Hg) 118 06/01/2017 [place] Diastolic (mm Hg) 70 06/01/[address] Respitory Rate 10 06/01/2017 [place] Temperature Oral (F) 98.5 F 06/01/2017 [place] BMI Calculated 38.97 05/31/2017 [facility] Height 177.8 cm 05/31/2017 [facility] Weight 123.182 05/31/2017 [place] Systolic (mm Hg) 126 03/04/2017 [place] Diastolic (mm Hg) 88 03/04/[address] [facility] [address] Temperature Oral (F) 97.9 F 03/04/2017 [place] Respitory Rate 20 03/04/2017 [facility] Heart Rate 70 03/04/2017 [facility] Respitory Rate 20 03/04/2017 [facility] Heart Rate 70 03/04/2017 [facility] Systolic (mm Hg) 128 03/04/2017 [place] Diastolic (mm Hg) 71 03/04/[address] [facility] [address] BMI Calculated 42.69 03/04/2017 [facility] Height 170.18 cm 03/04/2017 [facility] Weight 123.636 03/04/2017 [place] Respitory Rate 20 03/04/2017 [facility] Heart Rate 73 03/04/2017 [facility] Temperature Oral (F) 99 F 03/04/2017 [place] [...] [place] Diastolic (mm Hg) 71 02/26/[address] [facility] [address] Temperature Oral (F) 97.9 F 02/26/2017 [place] Heart Rate 73 02/24/2017 [facility] Temperature Oral (F) 99.2 F 02/24/2017 [facility] Weight 124.091 02/24/2017 [facility] BMI Calculated 39.25 02/24/2017 [facility] Height 177.8 cm 02/24/2017 [facility] Encounters Location Location Encounter Encounter Reason Attending ADM OR Stat us Source Details Type Number For Provider Date Date Visit [facility] Outpt Diag [id number] [facility] 02/24 02/25 [facility] [place] [facility] [facility] [id number] Elder 02/26 02/26 [facility] [place] [facility] Emergency [id number] Bill Khan 03/04 03/04 [facility]2016 [facility] [id number] Elder 06/01 06/01 [facility] [place] [facility] [place] [facility] Procedures Procedure Code Date Perfomer Comments Source Central [id number] [facility]<sup>1</s 7 up> AV - Creation of [id number] [facility] arteriovenous 6 fistula Procedure<sup>2, [id number] left ACL [facility] 3</sup> repairLeft knee arthroscopy Procedure [id number] OPID [facility] Procedure<sup>1, [id number] left ACL [facility] 2</sup> repairLeft knee [facility] , arthroscopy [facility] Assessment and Plan Assessment and Plan Date Source Extracted from:Title: Clinical Document 02/26/2017 [facility] Author: Elder Reynolds MD Date: 02/26/17 PATIENT NAME: SIMONE WALLER DATE OF OPERATION: 02/26/2017 PREOPERATIVE DIAGNOSES: 1. End-stage renal disease. 2. Diabetes. 3. History of stroke. 4. Hypertension. POSTOPERATIVE DIAGNOSES: 1. End-stage renal disease. 2. Diabetes. 3. History of stroke. 4. Hypertension. PROCEDURE(S): 1. Left arm venogram. 2. Creation of left wrist AV fistula. 3. Superior venacavogram. SURGEON: Elder Reynolds MD COMFORT STATION ATTENDANT: CHANTAL Martines ANESTHESIA: General by [place]. ESTIMATED [...] History Date Source Social History TypeResponse 05/31/2017 [facility] Substance Abuse Use: None. Exercise Self assessment: [...]
[~2020-07-31 11:25] MED LIST: NA CHLORIDE 0.9% 0 ML ONE
[2020-07-31] MEDS ORDERED: NA CHLORIDE 0.9% 500 ML ONE (12:01)
[2020-07-31] MEDS ORDERED: HEPA 1000U/500MLS 1,000 UNIT/500 ML BAG IV ONE (12:36)
[2020-07-31] MEDS ORDERED: LIDOCAINE 1% 20 ML MDV ONE (12:36)
[2020-07-31] MEDS ORDERED: MIDAZOLAM HCL 2 MG/2 ML INJ ONE (12:37)
[2020-07-31] MEDS ORDERED: ATROPINE SULF 1 MG/10 ML SYR IV ONE (12:38)
[2020-07-31] MEDS ORDERED: FENTANYL CITR 100 MCG/2 ML ONE (12:38)
[2020-07-31] MEDS ORDERED: NITROGLYCERIN/D5W 0 MG/0 ML BTL IV ONE (12:38)
[2020-07-31] MEDS ORDERED: NITROGLYCERIN 100 MCG/ML SYR (for cath lab use only) IV ONE (12:38)
[2020-07-31] MEDS ORDERED: NA CHLORIDE 0.9% 0 ML ONE (12:38)
[2020-07-31] MEDS ORDERED: METOPROLOL TARTRATE 5 MG/5 ML INJ IV ONE (12:56)
[2020-07-31] MEDS ORDERED: cloNIDine HCL 0.1 MG TAB ONE (13:05)
[2020-07-31 14:57] VITALS: BP 165/70
[2020-07-31 15:22] VITALS: TEMP 97
[2020-07-31 15:23] VITALS: O2SAT 92
--- OUTSIDE RECORDS SUMMARY | 2020-07-31 19:48 | XMS REPORT | Clinical Summary ---
:1955 Author Organization [facility] Address [address] [place] [address] Care Team Providers Name Role Phone Nando [...] 06/26/2020 Orders Only General Surgery Erin, Elsa, MANAGER DATA [employer]HOU[employer] Vitamin deficiency; Intestinal jazmín bsorption, unspecified type 06/25/2020 Refill General Surgery Deepika Jo Vitamin defi ciency; Andreia, PRESS CLIPPER Intestinal jazmín bsorption, unspecified type 04/14/2020 Refill General Surgery Deepika Jo Vitamin defi ciency; Andreia, PRESS CLIPPER Intestinal jazmín bsorption, unspecified type 01/24/2020 Refill General Surgery Ede Garcia MD Vitamin deficiency; Intestinal jazmín bsorption, unspecified type 12/25/2019 Telephone General Surgery Rodolfo JuanjoselevsiagerardoADARSH Blanca 12/12/2019 Refill General Surgery Ede Garcia MD Vitamin deficiency; Intestinal jazmín bsorption, unspecified type 10/02/2019 Refill General Surgery Ede Garcia MD Vitamin deficiency; Intestinal jazmín bsorption, unspecified type after 07/31/2019 Surgical History Surgery Date Site/Laterality Comments ANTERIOR [...] states is limited by knee p ain [place] (hard of hearing) no hearing aides Stroke (HCC) 1994, 2001, 2009, [age] Knee pain, bilateral AVF (arteriovenous fistula) ([facility]) left l ower arm Family History Medical [...] - PPSV23) 2020 Implants Implanted Type Area Counting Machine Operator Device Shelf Model / Identifier Expiration Serial / Date Lot Drain Wound Hbls Round Radopaq Trocar Delmy White 0.18in 15fr - [id number] Surgical N/A: N/A [employer] 2229 / Implanted: 08/17/2017 at [facility] (Quantity not on file) Imp lants; [employer] / Expanders; [employer] Extenders; Surgical Wires Results Not on fileafter 07/31/2019 Advance Directives For more information, please contact: [phone] Type Date Recorded Patient Automatic Grinder Operator Explanati on Advance Directives, Living Will and Medical Power of Merchandising Assistant
--- OUTSIDE RECORDS SUMMARY | 2020-07-31 19:49 | XMS REPORT | Continuity of Care Document ---
:1955 Author Organization [facility] Care Team Providers Name Role Phone [facility] Unavailable Un available Problems Problem Status Onset Classification Date Comments Sourc e Date Reported N18.6 Active 017 [facility] WOUND INFECTION Active 017 [place] Infection 03/07/2017 following a 017 [place] procedure, initial encounter Arteriovenous 03/07/2017 fistula, acquired 017 [place] ESRD Active 017 [facility] Anxiety (finding) Active Problem 06/04/2017 H OPID 012 [facility] Coronary Active Problem 06/04/2017 [facility] arteriosclerosis [place], (disorder) [facility] Conduction Active Problem 06/04/2017 [place] disorder of the [place], heart (disorder) [facility] Cerebrovascular Active Problem 06/04/2017 OPID accident [facility], (disorder) [facility] Dependence on Active Problem 06/04/2017 not using at OPID continuous this time [facility] , positive airway pressure [facility] ventilation (finding) Diabetes mellitus Active Problem 06/04/2017 H OPID (disorder) [facility] End stage renal Active Problem 06/04/2017 Temporary fistula placed 2-3 months ago. pre op for fistula placement in left arm. OPID disease (disorder) hemodialysi s at home [facility] Fracture of Resolved Problem 06/04/20172012 OPID shoulder [facility], (disorder) [facility] Hyperlipidemia Active Problem 06/04/2017 O PID (disorder) [facility] Hypertensive Active Problem 06/04/2017 OPI D disorder, systemic [place], arterial (disorder) [facility] Intracranial Resolved Problem 06/04/2017 patietn had O PID venous thrombosis stroke [place], (disorder) [facility] Myocardial Resolved Problem 06/04/20171998 OPID infarction [facility] , (disorder) [facility] Obesity (disorder) Active Problem 06/04/2017 OPID [facility] Peripheral Active Problem 06/04/2017 amber OP[facility] vascular disease [place], (disorder) [facility] Sleep apnea Active Problem 06/04/2017 OPID (finding) [facility] Medications Medication Details Route Status Patient Ordering Order Source Instructions Provider Date heparin 5,000 unit, Inactive Route: SUB-Q, 2016 [facility] Q8H, Dosing Weight 123.182, kg, Start date: 06/01/17 16:00:00 CDT, Duration: 30 day, Stop date: 07/01/17 8:00:00 DRUG CLERK Ofirmev 1,000 mg, Inactive Route: IV, 2016 [facility] ONCE, Dosing Weight 123.182, kg, Start date: 06/01/17 14:37:00 CDT, Stop date: 06/01/17 14:37:00 CDT Insulin Lispro Notes: Roll in Inactive palms of hands 2016 [facility] gently; Do not shake `vigorously. (Same as: Humalog ) "Single Patient Use Only " WASTE: F/P - Black; E - [employer] Trash Bin Stable for 28 days at room temperature. Expires in days from D ate Acetazolamide 250 mg, Route: Inactive IV, ONCE, 2016 [facility] Dosing Weight 123.182, kg, PRN Cramps, Start date: 06/01/17 14:07:00 CDT Ondansetron Notes: (Same Inactive as: Zofran) 2016 [facility] MEDICATION WASTE Product Size: 4 mg Product Wasted: ___ mg Meperidine Notes: (Same Inactive as: Demerol) 2016 [facility] "Use Precaution in Elderly, Seizure disorders, and Renal impairment&quot ; Promethazine 6.25 mg, Route: Inactive IVPB, ONCE, 2016 [facility] Dosing Weight 123.182, kg, PRN Nausea & Vomiting, Start date: 06/01/17 14:07:00 CDT Fentanyl Notes: (Same Inactive as: Sublimaze) 2016 [facility] Preservative free. Hydromorphone 0.5 mg, 0.5 mL, Inactive 10/10/ M H Route: IVP, 2016 [facility] Drug form: INJ, Q5Min, Dosing Weight 123.182, kg, PRN Pain Score 7-10, Start date: 06/01/17 14:07:00 CDT, Duration: 4 doses or times, Stop date: Limited # of times Flumazenil Notes: (Same Inactive as: Romazicon) 2016 [facility] Naloxone Notes: Same as Inactive Narcan 2016 [facility] Diphenhydramine Notes: (Same Inactive as: Benadryl) 2016 [facility] Hydralazine Notes: (Same Inactive as: Apresoline) 2016 [facility] Push over 5 minutes Metoprolol Notes: (Same Inactive as: Lopressor) 2016 [facility] Push over 2 minutes Acetaminophen Notes: Max Inactive acetaminophen 2016 [facility] 4000 mg/day (4 gm/day). (Same as: Tylenol Extra Strength) Acetaminophen 300 2 tab, PO, Q4H, Active MG / Codeine PRN Pain Score 2016 [facility] Phosphate 30 MG 4-6, # 24 tab, Oral Tablet 0 Refill(s) Zofran Notes: (Same Inactive as: Zofran) 2016 [facility] MEDICATION WASTE Product Size: 4 mg Product Wasted: ___ mg acetaminophen-cod Notes: Do not Inactive eine #3 exceed 4gm/day 2016 [facility] of acetaminophen. (Same as: Tylenol with Codeine # 3) Acetaminophen Notes: Do not Inactive exceed 4 2016 [facility] gm/day. (Same as: Tylenol) vancomycin (ANES) Route: IV, Drug Inactive 06/01 form: INJ, 2016 [facility] ONCE, Stop date: 06/01/17 12:53:00 CDT propofol (ANES) Route: IV, Drug Inactive form: INJ, 2016 [facility] ONCE, Stop date: 06/01/17 12:53:00 CDT lidocaine (ANES) Route: IV, Drug Inactive form: INJ, 2016 [facility] ONCE, Stop date: 06/01/17 12:53:00 CDT fentaNYL (ANES) Route: IV, Drug Inactive form: INJ, 2017 [facility] ONCE, Stop date: 06/01/17 12:53:00 CDT Cefazolin 2 gm, Route: Inactive IVPB, Drug 2016 [facility] form: INJ, ONCALL, Dosing Weight 123.636, kg, Start date: 06/01/17 11:00:00 CDT, Duration: 1 doses or times, ABX Indication: Surgical Prophylaxis Vancomycin 1 gm, Route: Inactive IV, ONCE, 2016 [facility] Dosing Weight 123.636, kg, Start date: 06/01/17 10:14:00 CDT, Stop date: 06/01/17 10:14:00 CDT, ABX Indication: Surgical Prophylaxis Benadryl Notes: (Same Inactive as: Benadryl) 2016 [facility] Ceftriaxone 1 gm, Route: Inactive IVPB, Drug 2016 [facility] form: PDR/INJ, ONCE, Dosing Weight 123.636, [...] Oral Capsule PO, BID, X 10 2017 [place] [Keflex] day, # 20 cap, 0 Refill(s) doxycycline 100 mg = 1 tab, Active hyclate 100 MG PO, Q12H, X 10 [place] Oral Tablet day, # 20 tab, 0 Refill(s) heparin Notes: porcine Inactive heparin 2016 [facility] Metoclopramide Notes: (Same Inactive as: Reglan) 2016 [facility] Flumazenil Notes: (Same Inactive as: Romazicon) 2016 [facility] Naloxone Notes: Same as Inactive Narcan 2016 [facility] Fentanyl Notes: (Same Inactive as: Sublimaze) 2016 [facility] Preservative free. Ondansetron 4 mg, Route: Inactive IVP, ONCE, 2016 [facility] Dosing Weight 124.091, kg, PRN Nausea & Vomiting, Start date: 02/26/17 11:26:00 CDT Labetalol Notes: (Same Inactive as: Normodyne, 2016 [facility] Trandate) Push over 2 minutes Give bolus over 2-3 minutes. Hydralazine Notes: (Same Inactive as: Apresoline) 2016 [facility] t Push over 5 minutes Acetaminophen 300 2 tab, PO, Q4H, Active MG / Codeine PRN Pain Score 2016 [place] Phosphate 30 MG 4-6, # 24 tab, Oral Tablet 0 Refill(s) Zofran Notes: (Same Inactive as: Zofran) 2016 [facility] MEDICATION WASTE Product Size: 4 mg Product Wasted: ___ mg acetaminophen-cod Notes: Do not Inactive eine #3 exceed 4gm/day 2016 [facility] of acetaminophen. (Same as: Tylenol with Codeine # 3) Acetaminophen Notes: Do not Inactive exceed 4 2016 [facility] gm/day. (Same as: Tylenol) protamine (ANES) Route: IV, Drug Inactive form: INJ, 2016 [facility] , Stop date: 02/26/17 10:10:00 CDT heparin (ANES) Route: IV, Drug Inactive form: INJ, 2016 [facility] , Stop date: 02/26/17 10:06:00 CDT propofol (ANES) Route: IV, Drug Inactive form: INJ, 2016 [facility] , Stop date: 02/26/17 9:41:00 CDT fentaNYL (ANES) Route: IV, Drug Inactive form: INJ, 2016 [facility] , Stop date: 02/26/17 9:31:00 CDT midazolam (ANES) Route: IV, Drug Inactive form: SOLN, 2016, Stop date: 02/26/17 9:26:00 CDT vancomycin (ANES) Route: IV, Drug Inactive 02/26 (ANES) form: INJ, 2016 [facility] Start date: 02/26/17 9:09:00 CDT, Stop date: 02/26/17 10:09:00 CDT sodium chloride Route: IV, Inactive 0.9% 500 ml INJ Total Volume: 2016 [place] (ANES) 500, Start date: 02/26/17 8:49:00 CDT, Stop date: 02/26/17 9:49:00 CDT Cefazolin Notes: Same as: Inactive Ancef 2017 [facility] insulin detemir 15 UNITS, Active 100 UNT/ML SUB-Q, BID, am 2017 [facility] est Injectable AND pm MEALS Solution [Levemir] Probiotic Formula 1 cap, PO, Active Daily, 2016 [facility] PROBIOTIC PEARLS COMPLETE( DIGESTIVE hEALTH) Multiple Vitamins 1 tab, PO, Active oral tablet Daily, 2016 [facility] SPECTRAVITE ( ULTRA MEN 50 PLUS) Calcium Carbonate 250 mg, PO, BID Active 2016 [facility] ferrous sulfate 325 mg = 1 tab, Active 325 mg oral PO, TID 2016 [facility] enteric coated tablet calcitriol 0.25 0.25 microgram Active H mcg oral capsule = 1 cap, PO, 2016 [place] Every Other Day rosuvastatin 5 mg 5 mg = 1 tab, Active oral tablet PO, Daily 2016 [facility] allopurinol 100 50 mg, PO, Active mg oral tablet Daily 2016 [facility] Hydralazine 50 mg = 1 tab, Active Hydrochloride 50 PO, TID [address] [facility] [address] MG Oral Tablet carvedilol 6.25 6.25 mg = 1 Active mg oral tablet tab, PO, BID 2016 [place] gabapentin 100 MG 200 mg = 2 cap, Active Oral Capsule PO, AFTER 2017 [facility] DIALYSIS sevelamer 800 mg = 1 tab, Active carbonate 800 MG PO, TID-Meals 2016 [place] Oral Tablet [Renvela] Sodium 650 mg = 1 tab, Active Bicarbonate 650 PO, TID 2016 [facility] t MG Oral Tablet Furosemide 40 MG 40 mg = 1 tab, Active Oral Tablet PO, Bedtime 2016 [facility] t Furosemide 40 MG 80 mg = 2 tab, Active Oral Tablet PO, QAM 2016 [facility] apixaban 2.5 MG 2.5 mg = 1 tab, Active Oral Tablet PO, BID 2016 [facility] [Eliquis] Allergies, Adverse Reactions, Alerts Substance Category Reaction Severity Reaction Status Date Comments S ource type Reported NKFA Assertion Drug Active allergy [place] Immunizations No Data Provided for This Section Results Order Name Results Value Reference Date Interpretation Comments Mary [facility] Range CHEM PANEL POC BUN 35 7 - 22 06/01 [facility] CHEM PANEL POC Glucose 118 70 - 99 06/01 [facility] CHEM PANEL POC Sodium 142 135 - 145 06/01 [facility] CHEM PANEL POC 4.6 3.5 - 5.1 06/01 Potassium [facility] CHEM PANEL POC Chloride 101 95 - 109 06/01 [facility] CHEM PANEL POC 11.6 14.0 - 10 Hemoglobin 18.0 [facility] CHEM PANEL POC 34.0 42.0 - 06/01 Hematocrit 54.0 [facility] HEMATOLOGY POC 12.2 14.0 - 06/01 Hemoglobin 18.0 [facility] HEMATOLOGY POC 36.0 42.0 - 10 Hematocrit 54.0 [facility] HEMATOLOGY POC BUN 33 7 - 22 06/01 [facility] HEMATOLOGY POC Glucose 173 70 - 99 06/01 [facility] HEMATOLOGY POC Chloride 100 95 - 109 06/01 [facility] HEMATOLOGY POC 4.3 3.5 - 5.1 06/01 Potassium [facility] HEMATOLOGY POC Sodium 142 135 - 145 06/01 [facility] CHEM PANEL eGFR 11 03/04 Comment: The [facility] eGFR is calculated using the CKD-EPI [...] 10.8 10.0 - 03/04 MH 20.0 /2016 [facility] CHEM PANEL Calcium Lvl 9.2 8.5 - 10.5 03/04 [facility] CHEM PANEL BUN 35 7 - 22 03/04 [facility] CHEM PANEL Creatinine 5.40 0.50 - 07 MH Lvl 1.40 /2017 [facility] CHEM PANEL Glucose Lvl 156 70 - 99 03/04 [facility] CHEM PANEL Sodium Lvl 138 135 - 145 03/04 [facility] CHEM PANEL Potassium 3.8 3.5 - 5.1 / MH Lvl /2016 [facility] CHEM PANEL Chloride Lvl 97 95 - 109 03/04 [facility] CHEM PANEL CO2 34 24 - 32 03/04 [facility] HEMATOLOGY Segs-Bands # 5.4 1.5 - 8.1 03/04 /2016 [facility] HEMATOLOGY Basophils 0.5 0.0 - 1.0 03/04 [facility] HEMATOLOGY Monocytes # 1.1 0.0 - 0.8 03/04 [facility] HEMATOLOGY Lymphocytes 3.4 1.0 - 5.5 03/04 MH # /2017 [facility] HEMATOLOGY Basophils # 0.1 0.0 - 0.2 03/04 [facility] HEMATOLOGY Eosinophils 0.4 0.0 - 0.5 / MH # /2016 [facility] HEMATOLOGY Segs 52.7 45.0 - 03/04 MH 75.0 /2017 [facility] HEMATOLOGY Lymphocytes 32.9 20.0 - 03/04 MH 40.0 /2017 [facility] HEMATOLOGY Monocytes 10.3 2.0 - 12.0 03/04 /2016 [facility] HEMATOLOGY Eosinophils 3.6 0.0 - 4.0 03/04 /2016 [facility] HEMATOLOGY MCV 91.1 80.0 - 03/04 MH 94.0 /2017 [facility] HEMATOLOGY RBC 4.52 4.70 - 03/04 MH 6.10 /2016 [facility] HEMATOLOGY Hgb 13.5 14.0 - 03/04 MH 18.0 /2016 [facility] HEMATOLOGY MCH 29.9 27.0 - 03/04 MH 31.0 /2016 [facility] HEMATOLOGY Hct 41.2 42.0 - 03/04 MH 54.0 /2016 [facility] HEMATOLOGY MPV 8.1 7.4 - 10.4 03/04 /2016 [facility] HEMATOLOGY MCHC 32.8 32.0 - 03/04 MH 36.0 /2016 [facility] HEMATOLOGY RDW 14.1 11.5 - 03/04 MH 14.5 /2016 [facility] HEMATOLOGY Platelet 114 133 - 450 03/04 /2016 [facility] HEMATOLOGY WBC 10.3 3.7 - 10.4 03/04 /2016 [facility] HEMATOLOGY POC 13.9 14.0 - 02/26 Hemoglobin 18.0 /2016 [facility] HEMATOLOGY POC Glucose 126 70 - 99 02/26 /2016 [facility] HEMATOLOGY POC BUN 43 7 - 22 02/26 /2016 [facility] HEMATOLOGY POC 41.0 42.0 - 02/26 Hematocrit 54.0 /2016 [facility] HEMATOLOGY POC 4.1 3.5 - 5.1 02/26 Potassium /2016 [facility] HEMATOLOGY POC Chloride 103 95 - 109 02/26 /2016 [facility] HEMATOLOGY POC Sodium 142 135 - 145 02/26 /2016 [facility] ELECTROLYTE POC Sodium 141 135 - 145 02/26 S /2016 [facility] ELECTROLYTE POC BUN 46 7 - 22 02/26 S /2016 [facility] ELECTROLYTE POC Chloride 103 95 - 109 02/26 S /2016 [facility] ELECTROLYTE POC 4.3 3.5 - 5.1 02/26 S Potassium /2016 [facility] ELECTROLYTE POC Glucose 163 70 - 99 02/26 S /2016 [facility] ELECTROLYTE POC 15.6 14.0 - 02/26 S Hemoglobin 18.0 /2016 [facility] ELECTROLYTE POC 46.0 42.0 - 02/26 S Hematocrit 54.0 /2016 [facility] BLOOD BANK ABO/Rh O POS 02/24 RESULTS /2016 [facility] BLOOD BANK Antibody Negative 02/24 RESULTS Scrn (02/24/17 10:22 AM) /2016 [facility] est ELECTROLYTE AGAP 13.1 10.0 - 02/24 S 20.0 [facility] ELECTROLYTE eGFR 11 02/24 Result Comment: The [facility] eGFR is calculated using the CKD-EPI [...] Lvl 9.3 8.5 - 10.5 07/ S [facility] ELECTROLYTE Chloride Lvl 102 95 - 109 07/05 S [facility] ELECTROLYTE CO2 28 24 - 32 07/ S /2016 [facility] ELECTROLYTE Sodium Lvl 139 135 - 145 07/ S [facility] ELECTROLYTE Potassium 4.1 3.5 - 5.1 07/ S Lvl /2016 [facility] ELECTROLYTE Creatinine 5.30 0.50 - 07/ S Lvl 1.40 /2016 [facility] ELECTROLYTE BUN 47 7 - 22 07/ S /2016 [facility] ELECTROLYTE Glucose Lvl 129 70 - 99 / S [facility] HEMATOLOGY PT 12.7 12.0 - 07 14.7 /2016 [facility] HEMATOLOGY INR 0.93 0.85 - 07/05 1.17 /2016 [facility] HEMATOLOGY PTT 28.3 22.9 - 07 35.8 /2016 [facility] HEMATOLOGY MPV 8.7 7.4 - 10.4 02/24 [facility] HEMATOLOGY Platelet 120 133 - 450 07/ [facility] HEMATOLOGY MCHC 32.9 32.0 - 07/ 36.0 /2016 [facility] HEMATOLOGY RDW 14.7 11.5 - 07/ 14.5 /2016 [facility] HEMATOLOGY RBC 4.73 4.70 - 07/05 6.10 /2017 [facility] HEMATOLOGY Hgb 14.1 14.0 - 07/ 18.0 /2017 [facility] HEMATOLOGY WBC 12.8 3.7 - 10.4 07/ [facility] HEMATOLOGY MCV 90.2 80.0 - 07/ 94.0 /2016 [facility] HEMATOLOGY Hct 42.7 42.0 - 07/ 54.0 /2016 [facility] MCH 29.7 27.0 - 07/05 31.0 /2017 [facility] Basophils # 0.1 0.0 - 0.2 07/ [facility] HEMATOLOGY Monocytes 8.0 2.0 - 12.0 07/ /2016 [facility] HEMATOLOGY Basophils 1.0 0.0 - 1.0 / /2016 [facility] HEMATOLOGY Segs-Bands # 7.6 1.5 - 8.1 02/24 /2016 [facility] HEMATOLOGY Eosinophils 3.4 0.0 - 4.0 / /2016 [facility] HEMATOLOGY Lymphocytes 3.6 1.0 - 5.5 / # /2017 [facility] HEMATOLOGY Lymphocytes 28.2 20.0 - 07 MH 40.0 /2017 [facility] HEMATOLOGY Eosinophils 0.4 0.0 - 0.5 / # /2017 [facility] HEMATOLOGY Monocytes # 1.0 0.0 - 0.8 02/24 /2016 [facility] HEMATOLOGY Segs 59.4 45.0 - 07 75.0 /2016 [facility] SPECIAL Hgb A1C 8.0 <=5.6 % 02/24 CHEMISTRY /2016 [facility] Pathology Reports No Data Provided for This Section Diagnostic Reports Report Value Date Source Chest 1view DX Chest 1view DX 02/24/2017 VLADIMIR [facility] CLINICAL HISTORY:pre-op for fistula placement in [...] abnormality is noted in the chest. SL: [id number] Consultation Notes No Data Provided for This Section Discharge Summaries No Data Provided for This Section History and Physicals No Data Provided for This Section Vital Signs Vital Sign Value Date Comments Source Systolic (mm Hg) 120 06/01/2017 [facility] Diastolic (mm Hg) 70 06/01/2017 [facility] Respitory Rate 15 06/01/2017 [facility] Systolic (mm Hg) 108 06/01/2017 [facility] [place] Diastolic (mm Hg) 56 06/01/[address] Respitory Rate 19 06/01/2017 [place] Systolic (mm Hg) 118 06/01/2017 [place] Diastolic (mm Hg) 70 06/01/[address] Respitory Rate 10 06/01/2017 [place] Temperature Oral (F) 98.5 F 06/01/2017 [place] BMI Calculated 38.97 05/31/2017 [facility] Height 177.8 cm 05/31/2017 [facility] Weight 123.182 05/31/2017 [place] Systolic (mm Hg) 126 03/04/2017 [place] Diastolic (mm Hg) 88 03/04/[address] [facility] [address] Temperature Oral (F) 97.9 F 03/04/2017 [place] Respitory Rate 20 03/04/2017 [facility] Heart Rate 70 03/04/2017 [facility] Respitory Rate 20 03/04/2017 [facility] Heart Rate 70 03/04/2017 [facility] Systolic (mm Hg) 128 03/04/2017 [place] Diastolic (mm Hg) 71 03/04/[address] [facility] [address] BMI Calculated 42.69 03/04/2017 [facility] Height 170.18 cm 03/04/2017 [facility] Weight 123.636 03/04/2017 [place] Respitory Rate 20 03/04/2017 [facility] Heart Rate 73 03/04/2017 [facility] Temperature Oral (F) 99 F 03/04/2017 [place] [...] [place] Diastolic (mm Hg) 71 02/26/[address] [facility] [address] Temperature Oral (F) 97.9 F 02/26/2017 [place] Heart Rate 73 02/24/2017 [facility] Temperature Oral (F) 99.2 F 02/24/2017 [facility] Weight 124.091 02/24/2017 [facility] BMI Calculated 39.25 02/24/2017 [facility] Height 177.8 cm 02/24/2017 [facility] Encounters Location Location Encounter Encounter Reason Attending ADM AR Stat us Source Details Type Number For Provider Date Date Visit [facility] Outpt Diag [id number] Elder 02/24 02/25 [facility] [place] [facility] [id number] Elder 02/26 02/26 [facility] Emergency [id number] Bill Khan 03/04 03/04 [facility]2016 [facility] [id number] Elder 06/01 06/01 [facility] [place] [facility] Procedures Procedure Code Date Perfomer Comments Source Central [facility] [id number] [facility]<sup>[facility]</s 7 up> AV - Creation of [id number] [facility] arteriovenous 6 fistula Procedure<sup>2, [id number] left ACL [facility] 3</sup> repairLeft knee arthroscopy Procedure [id number] OPID [facility] Procedure<sup>1, [id number] left ACL [facility] 2</sup> repairLeft knee [facility] , arthroscopy [facility] Assessment and Plan Assessment and Plan Date Source Extracted from:Title: Clinical Document 02/26/2017 [facility] Author: Elder Reynolds MD Date: 02/26/17 PATIENT NAME: SIMONE WALLER DATE OF OPERATION: 02/26/2017 PREOPERATIVE DIAGNOSES: 1. End-stage renal disease. 2. Diabetes. 3. History of stroke. 4. Hypertension. POSTOPERATIVE DIAGNOSES: 1. End-stage renal disease. 2. Diabetes. 3. History of stroke. 4. Hypertension. PROCEDURE(S): 1. Left arm venogram. 2. Creation of left wrist AV fistula. 3. Superior venacavogram. SURGEON: Elder Reynolds MD CANDY MIXER: CHANTAL Martines ANESTHESIA: General by [place]. ESTIMATED [...] History Date Source Social History TypeResponse 05/31/2017 [facility] Substance Abuse Use: None. Exercise Self assessment: [...]
--- NOTE | 2020-07-31 22:55 | OP ---
Date of Procedure: 07/31/2020 Surgeon: Ede Linton MD Specialty Transformer Assembler: Ramakrishna Dias. Procedure: Left heart catheterization with selective coronary arteriogram. Indication: Chest pain, positive stress test. Mr. Rodriguez is a 65-year-old patient on hemodialysis on Eliquis for paroxysmal atrial fibrillation, chest pain, shortness of breath, positive stress test, sc heduled for catheterization today as an outpatient. Procedure In Detail: He was brought to the medical lab tech instructor, prepped and draped in routine sterile fashion. Given Versed and fentanyl for sedation. A 6-Yoruba sheath was introduced in the right common femora l artery successfully using the Seldinger technique and 10 cc of Xylocaine. JL4 and JR4 catheters we re used to cannulate the left main and right main respectively. He had some moderate plaquing in the left main. His LAD was completely occluded at the first diagonal. It reconstituted distally and it is about a 2 mm vessel. He had a very large first diagonal. Circumflex had some [id number] p laquing. He had an 80% OM lesion. The RCA itself was normal. The posterolateral branch was normal. He had an 80% ostial stenosis of his PDA. The patient tolerated the procedure well. There were no complications. Blood Loss: 5 cc. Postoperative Diagnosis: Severe coronary artery disease. Plan: For possible CABG. The patient will remain at bedrest for 2 hours and then he can go home. Fiona carrillo would be given a CD at a next followup appointment with him with one of the cardiovascular surgeons. [facility]. GUS/J CARLOS Voice ID: [id number] Report ID: [id number]
== END 2020-07-31 16:17 | disposition home or self-care (01) ==
LOC: CCL 11:25
DX: I25.10 Atherosclerotic heart disease of native coronary artery without angina pectoris (principal); I48.0 Paroxysmal atrial fibrillation; Z79.01 Long term (current) use of anticoagulants; Z20.828 Contact with and (suspected) exposure to other viral communicable diseases; E11.22 Type 2 diabetes mellitus with diabetic chronic kidney disease; I12.0 Hypertensive chronic kidney disease with stage 5 chronic kidney disease or end stage renal disease; F17.210 Nicotine dependence, cigarettes, uncomplicated; E11.51 Type 2 diabetes mellitus with diabetic peripheral angiopathy without gangrene; N18.6 End stage renal disease; Z99.2 Dependence on renal dialysis; E78.2 Mixed hyperlipidemia
CPT/HCPCS: 85025; 80048; 36415; 85610; 82947; 85730; 71046; 93454; U0002; C1893; J2250; J3010; J7040; J1644; J0583

== ENCOUNTER 2020-08-24 14:09 | Emergency (ER) | payer OTHER ==
--- OUTSIDE RECORDS SUMMARY | 2020-08-24 14:12 | XMS REPORT | Clinical Summary ---
:1955 Author Organization [facility] Address [address] [place] [address] Care Team Providers Name Role Phone Nando [...] 06/26/2020 Orders Only General Surgery Erin, Elsa, CLAIM PROFESSIONAL Vitamin deficiency; Intestinal jazmín bsorption, unspecified type 06/25/2020 Refill General Surgery Deepika Jo Vitamin defi ciency; Andreia, OPENER Intestinal jazmín bsorption, unspecified type 04/14/2020 Refill General Surgery Deepika Jo Vitamin defi ciency; Andreia, OPENER Intestinal jazmín bsorption, unspecified type 01/24/2020 Refill General Surgery Ede Garcia MD Vitamin deficiency; Intestinal jazmín bsorption, unspecified type 12/25/2019 Telephone General Surgery Rodolfo MarkADARSH Blanca 12/12/2019 Refill General Surgery Ede Garcia MD Vitamin deficiency; Intestinal jazmín bsorption, unspecified type 10/02/2019 Refill General Surgery Ede Garcia MD Vitamin deficiency; Intestinal jazmín bsorption, unspecified type after 08/24/2019 Surgical History Surgery Date Site/Laterality Comments ANTERIOR [...] states is limited by knee p ain TELIDA (hard of hearing) no hearing aides Stroke (HCC) 1994, 2001, 2009, 20 17 Knee pain, bilateral AVF (arteriovenous fistula) ([facility]) left l ower arm Family History Medical [...] EYE EXAM 1965 DIABETIC FOOT EXAM 1965 COVID-19 VACCINE (#1) 1971 COLONOSCOPY SCREENING 2005 SHINGLES VACCINES (#1) 2005 INFLUENZA VACCINE 03/23/2020 65+ PNEUMOCOCCAL VACCINE (1 of 1 - PPSV23) 2020 Implants Implanted Type Area Script Developer Device Shelf Model / Identifier Expiration Serial / Date Lot Drain Wound Hbls Round Radopaq Trocar Delmy White 0.18in 15fr - [id number] Surgical N/A: N/A [employer] OF 2229 / Implanted: 08/17/2017 at [facility] (Quantity not on file) Imp lants; [employer] / Expanders; [employer] Ext[employer]; Surgical Wires Results Not on fileafter 08/24/2019 Advance Directives For more information, please contact: [phone] Type Date Recorded Patient Masonry Instructor Explanati on Advance Directives, Living Will and Medical Power of Etl Programmer
--- OUTSIDE RECORDS SUMMARY | 2020-08-24 14:14 | XMS REPORT | Clinical Summary ---
:1955 Author Organization [facility] Address [address] [place] [address] Care Team Providers Name Role Phone Heriberto Amaya Unavailable Pcp, Primary Care Provider Unavailable Allergies No Known Allergies Medications Medication Sig Dispensed Refills Start End Status Date Date carvediloL (COREG) Take 25 mg by mouth 0 Active 25 MG tablet 2 (two) times daily with breakfast and dinner. allopurinoL Take 100 mg by 0 Act jose (ZYLOPRIM) 100 MG mouth daily. tablet aspirin 81 MG EC Take 81 mg by mouth 0 Active tablet daily. multivitamin Take 1 capsule by 0 Active capsule mouth daily. cyanocobalamin Inject 1,000 mcg 0 Active (VITAMIN B-12) intramuscularly 1,000 mcg/mL every 30 (thirty) injection days. apixaban (ELIQUIS) Take 2.5 mg by 0 Active 2.5 mg Tab tablet mouth 2 (two) times daily. hydrALAZINE Take 1 tablet (100 90 tablet 11 08/20/20 Active (APRESOLINE) 100 mg total) by mouth 20 021 MG tablet every 8 (eight) hours. rosuvastatin Take 1 tablet (20 30 tablet 11 08/21/20 Active (CRESTOR) 20 MG mg total) by mouth 20 021 tablet daily. ferrous sulfate Take 1 tablet (325 15 tablet 1 08/22/2008/22 Active 325 (65 FE) MG mg total) by mouth 20 021 tablet every other day. folic Take 1 tablet by 30 tablet 5 08/20/20 Act jose acid-multivitamins mouth daily. 20 (NEPHRO-CESAR) 0.8 mg Tab tablet losartan (COZAAR) Take 1 tablet (100 30 tablet 11 08/21/20 Active 100 MG tablet mg total) by mouth 20 021 daily. hydrALAZINE Take 100 mg by 0 Dis continued (APRESOLINE) 100 mouth 2 (two) times 020 (Stop Taking at MG tablet daily. Discharge) rosuvastatin Take 5 mg by mouth 0 Discontinued (CRESTOR) 5 MG daily. 020 (Stop Taking at tablet Discharge) furosemide (LASIX) Take 80 mg by mouth 0 1 Discontinued 80 MG tablet 2 (two) times 020 (St op Taking at daily. 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 Never 08/08/2020 How many drinks containing alcohol do you have on a typical Not asked day when you are drinking? How often do you have six or more drinks on one occasion? No t asked Sex Assigned at Date Recorded Not on file COVID-19 Exposure Response Date Recorded In the last month, have you been in contact with No / Unsure 08/12/2020 11:24 AM MANAGER POST someone who was confirmed or suspected to have Coronavirus / COVID-19? Last Filed Vital Signs Vital Sign Reading Time Taken Comments Blood Pressure 131/63 08/20/2020 8:00 AM MANAGER POST Pulse 67 08/20/2020 8:00 AM MANAGER POST Temperature 36.7 C (98 F) 08/20/2020 4:00 AM MANAGER POST Respiratory Rate 22 08/20/2020 8:00 AM MANAGER POST Oxygen Saturation 99% 08/20/2020 8:00 AM MANAGER POST Inhaled Oxygen Concentration 40% 08/13/2020 7:33 PM MANAGER POST Weight 91.6 kg (201 lb 15.1 oz) 08/19/2020 10:15 AM MANAGER POST Height 177.8 cm (5' 10") 08/13/2020 5:57 AM MANAGER POST Body Mass Index 28.98 08/13/2020 5:57 AM MANAGER POST Plan of Treatment Date Type Specialty Care Team Description 09/03/2020 Office Visit Cardiology Stewart Flores MD [address] [facility] P514 [phone] [phone] Health Maintenance Due Date Last Done Comments COLON CANCER SCREENING COLONOSCOPY 1955 HEPATITIS B VACCINE (1 of 3 - Risk 1974 Recombivax 3-dose series) INFLUENZA VACCINE (#1) 2020 Medicare IPPE (WELCOME TO MEDICARE) 05/23/2020 PNEUMOCOCCAL 65+ YRS (1 of 1 - 2020 [id number]) DEPRESSION SCREENING (12+) 08/23/2020 LIPID PANEL 08/14/2023 08/14/2020, 08/13/2020, 08/05/2017 Procedures Procedure Name Priority Date/Time Associated Comments Diagnosis XR CHEST 1 VIEW LUIS F 08/19/2020 Results for PORTABLE/BEDSIDE 1:11 PM MANAGER POST this proced ure are in the results section. HEMODIALYSIS INPATIENT Routine 08/19/2020 7:26 AM MANAGER POST PHOSPHORUS Routine 08/19/2020 Results for 4:04 AM MANAGER POST this procedure are in the results section. MAGNESIUM Routine 08/19/2020 Results for 4:04 AM MANAGER POST this procedure are in the results section. CBC (HEMOGRAM ONLY) Routine 08/19/2020 Results for 4:04 AM MANAGER POST this procedure are in the results section. BASIC METABOLIC PANEL (7) Routine 08/19/2020 Re sults for 4:04 AM MANAGER POST this procedure are in the results section. PHOSPHORUS Routine 08/18/2020 Results for 4:54 AM MANAGER POST this procedure are in the results section. MAGNESIUM Routine 08/18/2020 Results for 4:54 AM MANAGER POST this procedure are in the results section. CBC (HEMOGRAM ONLY) Routine 08/18/2020 Results for 4:54 AM MANAGER POST this procedure are in the results section. BASIC METABOLIC PANEL (7) Routine 08/18/2020 Re sults for 4:54 AM MANAGER POST this procedure are in the results section. XR CHEST 1 VIEW Routine 08/18/2020 Results for PORTABLE/BEDSIDE 3:30 AM MANAGER POST this proced ure are in the results section. PREPARE LEUKO-REDUCED Routine 08/17/2020 Result s for PLATELETS 11:54 PM MANAGER POST this procedure are in the results section. PREPARE LEUKO-REDUCED RBC Routine 08/17/2020 Re sults for 11:54 PM MANAGER POST this procedure are in the results section. POCT-GLUCOSE METER Routine 08/17/2020 Results f or 3:46 PM MANAGER POST this procedure are in the results section. POCT-GLUCOSE METER Routine 08/17/2020 Results f or 12:21 PM MANAGER POST this procedure are in the results section. XR CHEST 1 VIEW LUIS F 08/17/2020 Results for PORTABLE/BEDSIDE 9:33 AM MANAGER POST this proced ure are in the results section. POCT-GLUCOSE METER Routine 08/17/2020 Results f or 8:23 AM MANAGER POST this procedure are in the results section. SARS-COV2/RT-PCR ([facility] & Routine 08/17/2020 Res ults for REF LABS) 5:25 AM MANAGER POST this procedure are in the results section. PHOSPHORUS Routine 08/17/2020 Results for 5:19 AM MANAGER POST this procedure are in the results section. MAGNESIUM Routine 08/17/2020 Results for 5:19 AM MANAGER POST this procedure are in the results section. CBC (HEMOGRAM ONLY) Routine 08/17/2020 Results for 5:19 AM MANAGER POST this procedure are in the results section. BASIC METABOLIC PANEL (7) Routine 08/17/2020 Re sults for 5:19 AM MANAGER POST this procedure are in the results section. TRANSFUSE LEUKO-REDUCED Routine 08/17/2020 PLATELETS 12:16 AM MANAGER POST POCT-GLUCOSE METER Routine 08/16/2020 Results f or 8:39 PM MANAGER POST this procedure are in the results section. HEMODIALYSIS INPATIENT Routine 08/16/2020 Resul ts for 6:27 PM MANAGER POST this procedure are in the results section. TRANSFUSE LEUKO-REDUCED Routine 08/16/2020 RED BLOOD CELLS 4:59 PM MANAGER POST POCT-GLUCOSE METER Routine 08/16/2020 Results f or 4:56 PM MANAGER POST this procedure are in the results section. POCT-GLUCOSE METER Routine 08/16/2020 Results f or 12:22 PM MANAGER POST this procedure are in the results section. POCT-GLUCOSE METER Routine 08/16/2020 Results f or 7:21 AM MANAGER POST this procedure are in the results section. CALCIUM, IONIZED STAT 08/16/2020 Results for 4:06 AM MANAGER POST this procedure are in the results section. PHOSPHORUS Routine 08/16/2020 Results for 4:06 AM MANAGER POST this procedure are in the results section. MAGNESIUM Routine 08/16/2020 Results for 4:06 AM MANAGER POST this procedure are in the results section. CBC (HEMOGRAM ONLY) Routine 08/16/2020 Results for 4:06 AM MANAGER POST this procedure are in the results section. BASIC METABOLIC PANEL (7) Routine 08/16/2020 Re sults for 4:06 AM MANAGER POST this procedure are in the results section. XR CHEST 1 VIEW Routine 08/16/2020 Results for PORTABLE/BEDSIDE 3:21 AM MANAGER POST this proced ure are in the results section. POCT-GLUCOSE METER Routine 08/15/2020 Results f or 8:41 PM MANAGER POST this procedure are in the results section. POCT-GLUCOSE METER Routine 08/15/2020 Results f or 3:00 PM MANAGER POST this procedure are in the results section. XR CHEST 1 VIEW STAT 08/15/2020 Results for PORTABLE/BEDSIDE 2:35 PM MANAGER POST this proced ure are in the results section. US THORACENTESIS LUIS F 08/15/2020 Results for 1:25 PM MANAGER POST this procedure are in the results section. POCT-GLUCOSE METER Routine 08/15/2020 Results f or 12:15 PM MANAGER POST this procedure are in the results section. PT/APTT Routine 08/15/2020 Results for 9:33 AM MANAGER POST this procedure are in the results section. POCT-GLUCOSE METER Routine 08/15/2020 Results f or 7:28 AM MANAGER POST this procedure are in the results section. XR CHEST 1 VIEW Routine 08/15/2020 Results for PORTABLE/BEDSIDE 3:53 AM MANAGER POST this proced ure are in the results section. MISSAEL TITER AND PATTERN Routine 08/15/2020 Result s for 3:47 AM MANAGER POST this procedure are in the results section. CALCIUM, IONIZED STAT 08/15/2020 Results for 3:47 AM MANAGER POST this procedure are in the results section. PHOSPHORUS Routine 08/15/2020 Results for 3:47 AM MANAGER POST this procedure are in the results section. MAGNESIUM Routine 08/15/2020 Results for 3:47 AM MANAGER POST this procedure are in the results section. CBC (HEMOGRAM ONLY) Routine 08/15/2020 Results for 3:47 AM MANAGER POST this procedure are in the results section. BASIC METABOLIC PANEL (7) Routine 08/15/2020 Re sults for 3:47 AM MANAGER POST this procedure are in the results section. ANTI-NUCLEAR ANTIBODY Routine 08/15/2020 Result s for (MISSAEL) 3:47 AM MANAGER POST this procedure are in the results section. PREPARE RBC STAT 08/14/2020 Results for 11:54 PM MANAGER POST this procedure are in the results section. PREPARE PLATELETS STAT 08/14/2020 Results fo r 11:54 PM MANAGER POST this procedure are in the results section. PREPARE PLASMA STAT 08/14/2020 Results for 11:54 PM MANAGER POST this procedure are in the results section. PREPARE PLATELETS STAT 08/14/2020 Results fo r 11:54 PM MANAGER POST this procedure are in the results section. PREPARE PLATELETS STAT 08/14/2020 Results fo r 11:54 PM MANAGER POST this procedure are in the results section. PREPARE RBC STAT 08/14/2020 Results for 11:54 PM MANAGER POST this procedure are in the results section. OXYGEN SATURATION, STAT 08/14/2020 Results f or MEASURED 10:38 AM MANAGER POST this procedure are in the results section. US ABDOMEN LIMITED Routine 08/14/2020 Results f or 10:23 AM MANAGER POST this procedure are in the results section. POCT-GLUCOSE METER Routine 08/14/2020 Results f or 6:05 AM MANAGER POST this procedure are in the results section. BLOOD GAS, ARTERIAL Routine 08/14/2020 Results for 3:52 AM MANAGER POST this procedure are in the results section. CALCIUM, IONIZED STAT 08/14/2020 Results for 3:52 AM MANAGER POST this procedure are in the results section. HEPATITIS B PANEL Routine 08/14/2020 Results fo r 3:52 AM MANAGER POST this procedure are in the results section. HEPATITIS C ANTIBODY Routine 08/14/2020 Results for 3:52 AM MANAGER POST this procedure are in the results section. HC LAB HIV-1 AG W/HIV-1&2 Routine 08/14/2020 Re sults for AB 3:52 AM MANAGER POST this procedure are in the results section. HEMOGLOBIN A1C Routine 08/14/2020 Results for 3:52 AM MANAGER POST this procedure are in the results section. LIPID PANEL Routine 08/14/2020 Results for 3:52 AM MANAGER POST this procedure are in the results section. PHOSPHORUS Routine 08/14/2020 Results for 3:52 AM MANAGER POST this procedure are in the results section. MAGNESIUM Routine 08/14/2020 Results for 3:52 AM MANAGER POST this procedure are in the results section. CBC (HEMOGRAM ONLY) Routine 08/14/2020 Results for 3:52 AM MANAGER POST this procedure are in the results section. BASIC METABOLIC PANEL (7) Routine 08/14/2020 Re sults for 3:52 AM MANAGER POST this procedure are in the results section. XR CHEST 1 VIEW Routine 08/14/2020 Results for PORTABLE/BEDSIDE 1:23 AM MANAGER POST this proced ure are in the results section. POCT-GLUCOSE METER Routine 08/14/2020 Results f or 12:31 AM MANAGER POST this procedure are in the results section. HGB/HCT (H&H) - STAT LAB STAT 08/13/2020 Res ults for 7:34 PM MANAGER POST this procedure are in the results section. GLUCOSE-STAT LAB STAT 08/13/2020 Results for 7:34 PM MANAGER POST this procedure are in the results section. POTASSIUM-STAT LAB STAT 08/13/2020 Results f or 7:34 PM MANAGER POST this procedure are in the results section. SODIUM NA-STAT LAB STAT 08/13/2020 Results f or 7:34 PM MANAGER POST this procedure are in the results section. BLOOD GAS, ARTERIAL STAT 08/13/2020 Results for 7:34 PM MANAGER POST this procedure are in the results section. LACTIC ACID, ARTERIAL STAT 08/13/2020 Result s for 7:34 PM MANAGER POST this procedure are in the results section. BLOOD GAS, ARTERIAL STAT 08/13/2020 Results for 7:34 PM MANAGER POST this procedure are in the results section. HGB/HCT (H&H) - STAT LAB Routine 08/13/2020 Res ults for 4:17 PM MANAGER POST this procedure are in the results section. GLUCOSE-STAT LAB Routine 08/13/2020 Results for 4:17 PM MANAGER POST this procedure are in the results section. POTASSIUM-STAT LAB Routine 08/13/2020 Results f or 4:17 PM MANAGER POST this procedure are in the results section. SODIUM NA-STAT LAB Routine 08/13/2020 Results f or 4:17 PM MANAGER POST this procedure are in the results section. BLOOD GAS, ARTERIAL Routine 08/13/2020 Results for 4:17 PM MANAGER POST this procedure are in the results section. BLOOD GAS, ARTERIAL Routine 08/13/2020 Results for 4:17 PM MANAGER POST this procedure are in the results section. XR CHEST 1 VIEW STAT 08/13/2020 Results for PORTABLE/BEDSIDE 3:30 PM MANAGER POST this proced ure are in the results section. CALCIUM, IONIZED STAT 08/13/2020 Results for 2:31 PM MANAGER POST this procedure are in the results section. THROMBOELASTOGRAPH (TEG) STAT 08/13/2020 Res ults for 2:30 PM MANAGER POST this procedure are in the results section. OXYGEN SATURATION, STAT 08/13/2020 Results f or MEASURED 2:30 PM MANAGER POST this procedure are in the results section. PROTHROMBIN TIME/INR STAT 08/13/2020 Results for 2:30 PM MANAGER POST this procedure are in the results section. PT/APTT STAT 08/13/2020 Results for 2:30 PM MANAGER POST this procedure are in the results section. XR CHEST 1 VIEW STAT 08/13/2020 Results for PORTABLE/BEDSIDE 2:00 PM MANAGER POST this proced ure are in the results section. HGB/HCT (H&H) - STAT LAB STAT 08/13/2020 Res ults for 1:44 PM MANAGER POST this procedure are in the results section. GLUCOSE-STAT LAB STAT 08/13/2020 Results for 1:44 PM MANAGER POST this procedure are in the results section. POTASSIUM-STAT LAB STAT 08/13/2020 Results f or 1:44 PM MANAGER POST this procedure are in the results section. SODIUM NA-STAT LAB STAT 08/13/2020 Results f or 1:44 PM MANAGER POST this procedure are in the results section. BLOOD GAS, ARTERIAL STAT 08/13/2020 Results for 1:44 PM MANAGER POST this procedure are in the results section. COMPREHENSIVE METABOLIC STAT 08/13/2020 Resu lts for PANEL 1:44 PM MANAGER POST this procedure are in the results section. OXYGEN SATURATION, STAT 08/13/2020 Results f or MEASURED 1:44 PM MANAGER POST this procedure are in the results section. CBC (HEMOGRAM ONLY) STAT 08/13/2020 Results for 1:44 PM MANAGER POST this procedure are in the results section. PHOSPHORUS STAT 08/13/2020 Results for 1:44 PM MANAGER POST this procedure are in the results section. LACTIC ACID, ARTERIAL STAT 08/13/2020 Result s for 1:44 PM MANAGER POST this procedure are in the results section. BLOOD GAS, ARTERIAL STAT 08/13/2020 Results for 1:44 PM MANAGER POST this procedure are in the results section. MAGNESIUM STAT 08/13/2020 Results for 1:44 PM MANAGER POST this procedure are in the results section. BILIRUBIN, TOTAL AND Routine 08/13/2020 Results for DIRECT 12:30 PM MANAGER POST this procedure are in the results section. LACTATE DEHYDROGENASE Routine 08/13/2020 Result s for (LDH) 12:30 PM MANAGER POST this procedure are in the results section. HGB/HCT (H&H) - STAT LAB STAT 08/13/2020 Res ults for 12:27 PM MANAGER POST this procedure are in the results section. GLUCOSE-STAT LAB STAT 08/13/2020 Results for 12:27 PM MANAGER POST this procedure are in the results section. POTASSIUM-STAT LAB STAT 08/13/2020 Results f or 12:27 PM MANAGER POST this procedure are in the results section. SODIUM NA-STAT LAB STAT 08/13/2020 Results f or 12:27 PM MANAGER POST this procedure are in the results section. BLOOD GAS, ARTERIAL STAT 08/13/2020 Results for 12:27 PM MANAGER POST this procedure are in the results section. HAPTOGLOBIN Routine 08/13/2020 Results for 12:27 PM MANAGER POST this procedure are in the results section. PLATELET COUNT STAT 08/13/2020 Results for 12:27 PM MANAGER POST this procedure are in the results section. THROMBOELASTOGRAPH (TEG) STAT 08/13/2020 Res ults for 12:27 PM MANAGER POST this procedure are in the results section. FIBRINOGEN STAT 08/13/2020 Results for 12:27 PM MANAGER POST this procedure are in the results section. APTT STAT 08/13/2020 Results for 12:27 PM MANAGER POST this procedure are in the results section. PROTHROMBIN TIME/INR STAT 08/13/2020 Results for 12:27 PM MANAGER POST this procedure are in the results section. BLOOD GAS, ARTERIAL STAT 08/13/2020 Results for 12:27 PM MANAGER POST this procedure are in the results section. HEPATITIS B SURFACE Add-On 08/13/2020 Results for ANTIGEN 12:27 PM MANAGER POST this procedure are in the results section. RETICULOCYTE COUNT Routine 08/13/2020 Results f or 12:27 PM MANAGER POST this procedure are in the results section. TRANSFUSE LEUKO-REDUCED Routine 08/13/2020 RED BLOOD CELLS 12:08 PM MANAGER POST TRANSFUSE LEUKO-REDUCED Routine 08/13/2020 RED BLOOD CELLS 12:04 PM MANAGER POST HGB/HCT (H&H) - STAT LAB STAT 08/13/2020 Res ults for 11:41 AM MANAGER POST this procedure are in the results section. GLUCOSE-STAT LAB STAT 08/13/2020 Results for 11:41 AM MANAGER POST this procedure are in the results section. POTASSIUM-STAT LAB STAT 08/13/2020 Results f or 11:41 AM MANAGER POST this procedure are in the results section. SODIUM NA-STAT LAB STAT 08/13/2020 Results f or 11:41 AM MANAGER POST this procedure are in the results section. BLOOD GAS, ARTERIAL STAT 08/13/2020 Results for 11:41 AM MANAGER POST this procedure are in the results section. PLATELET COUNT Routine 08/13/2020 Results for 11:41 AM MANAGER POST this procedure are in the results section. FIBRINOGEN Routine 08/13/2020 Results for 11:41 AM MANAGER POST this procedure are in the results section. APTT Routine 08/13/2020 Results for 11:41 AM MANAGER POST this procedure are in the results section. PROTHROMBIN TIME/INR Routine 08/13/2020 Results for 11:41 AM MANAGER POST this procedure are in the results section. CALCIUM, IONIZED STAT 08/13/2020 Results for 11:41 AM MANAGER POST this procedure are in the results section. BLOOD GAS, ARTERIAL STAT 08/13/2020 Results for 11:41 AM MANAGER POST this procedure are in the results section. CBC W/PLT COUNT & AUTO Routine 08/13/2020 Resul ts for DIFFERENTIAL 11:41 AM MANAGER POST this procedure are in the results section. RETICULOCYTE COUNT Add-On 08/13/2020 Results f or 11:41 AM MANAGER POST this procedure are in the results section. CBC W/PLT COUNT & AUTO STAT Add-on 08/13/2020 Resul ts for DIFFERENTIAL 11:41 AM MANAGER POST this procedure are in the results section. TRANSFUSE LEUKO-REDUCED Routine 08/13/2020 RED BLOOD CELLS 11:26 AM MANAGER POST TRANSFUSE LEUKO-REDUCED Routine 08/13/2020 PLATELETS 11:20 AM MANAGER POST TRANSFUSE LEUKO-REDUCED Routine 08/13/2020 PLATELETS 11:20 AM MANAGER POST TRANSFUSE PLASMA Routine 08/13/2020 11:19 AM MANAGER POST TRANSFUSE PLASMA Routine 08/13/2020 11:19 AM MANAGER POST TRANSFUSE LEUKO-REDUCED Routine 08/13/2020 PLATELETS 11:18 AM MANAGER POST TRANSFUSE LEUKO-REDUCED Routine 08/13/2020 PLATELETS 11:18 AM MANAGER POST TRANSFUSE LEUKO-REDUCED Routine 08/13/2020 RED BLOOD CELLS 11:05 AM MANAGER POST TRANSFUSE LEUKO-REDUCED Routine 08/13/2020 RED BLOOD CELLS 11:04 AM MANAGER POST POCT-ACT Routine 08/13/2020 Results for 10:58 AM MANAGER POST this procedure are in the results section. HGB/HCT (H&H) - STAT LAB STAT 08/13/2020 Res ults for 10:51 AM MANAGER POST this procedure are in the results section. GLUCOSE-STAT LAB STAT 08/13/2020 Results for 10:51 AM MANAGER POST this procedure are in the results section. POTASSIUM-STAT LAB STAT 08/13/2020 Results f or 10:51 AM MANAGER POST this procedure are in the results section. SODIUM NA-STAT LAB STAT 08/13/2020 Results f or 10:51 AM MANAGER POST this procedure are in the results section. BLOOD GAS, ARTERIAL STAT 08/13/2020 Results for 10:51 AM MANAGER POST this procedure are in the results section. PLATELET COUNT STAT 08/13/2020 Results for 10:51 AM MANAGER POST this procedure are in the results section. THROMBOELASTOGRAPH (TEG) STAT 08/13/2020 Res ults for 10:51 AM MANAGER POST this procedure are in the results section. FIBRINOGEN STAT 08/13/2020 Results for 10:51 AM MANAGER POST this procedure are in the results section. APTT STAT 08/13/2020 Results for 10:51 AM MANAGER POST this procedure are in the results section. PROTHROMBIN TIME/INR STAT 08/13/2020 Results for 10:51 AM MANAGER POST this procedure are in the results section. BLOOD GAS, ARTERIAL STAT 08/13/2020 Results for 10:51 AM MANAGER POST this procedure are in the results section. TRANSFUSE LEUKO-REDUCED Routine 08/13/2020 PLATELETS 10:45 AM MANAGER POST TRANSFUSE LEUKO-REDUCED Routine 08/13/2020 PLATELETS 10:41 AM MANAGER POST TRANSFUSE LEUKO-REDUCED Routine 08/13/2020 PLATELETS 10:39 AM MANAGER POST TRANSFUSE LEUKO-REDUCED Routine 08/13/2020 PLATELETS 10:39 AM MANAGER POST POCT-ACT Routine 08/13/2020 Results for 10:28 AM MANAGER POST this procedure are in the results section. HGB/HCT (H&H) - STAT LAB STAT 08/13/2020 Res ults for 10:15 AM MANAGER POST this procedure are in the results section. GLUCOSE-STAT LAB STAT 08/13/2020 Results for 10:15 AM MANAGER POST this procedure are in the results section. POTASSIUM-STAT LAB STAT 08/13/2020 Results f or 10:15 AM MANAGER POST this procedure are in the results section. SODIUM NA-STAT LAB STAT 08/13/2020 Results f or 10:15 AM MANAGER POST this procedure are in the results section. BLOOD GAS, ARTERIAL STAT 08/13/2020 Results for 10:15 AM MANAGER POST this procedure are in the results section. PLATELET COUNT Routine 08/13/2020 Results for 10:15 AM MANAGER POST this procedure are in the results section. FIBRINOGEN Routine 08/13/2020 Results for 10:15 AM MANAGER POST this procedure are in the results section. APTT Routine 08/13/2020 Results for 10:15 AM MANAGER POST this procedure are in the results section. PROTHROMBIN TIME/INR Routine 08/13/2020 Results for 10:15 AM MANAGER POST this procedure are in the results section. CALCIUM, IONIZED STAT 08/13/2020 Results for 10:15 AM MANAGER POST this procedure are in the results section. BLOOD GAS, ARTERIAL STAT 08/13/2020 Results for 10:15 AM MANAGER POST this procedure are in the results section. PERIPHERAL BLOOD SMEAR - STAT Add-on 08/13/2020 Res ults for HOLD ONLY 10:15 AM MANAGER POST this procedure are in the results section. POCT-ACT Routine 08/13/2020 Results for 9:49 AM MANAGER POST this procedure are in the results section. HGB/HCT (H&H) - STAT LAB STAT 08/13/2020 Res ults for 9:46 AM MANAGER POST this procedure are in the results section. GLUCOSE-STAT LAB STAT 08/13/2020 Results for 9:46 AM MANAGER POST this procedure are in the results section. POTASSIUM-STAT LAB STAT 08/13/2020 Results f or 9:46 AM MANAGER POST this procedure are in the results section. SODIUM NA-STAT LAB STAT 08/13/2020 Results f or 9:46 AM MANAGER POST this procedure are in the results section. BLOOD GAS, ARTERIAL STAT 08/13/2020 Results for 9:46 AM MANAGER POST this procedure are in the results section. BLOOD GAS, ARTERIAL STAT 08/13/2020 Results for 9:46 AM MANAGER POST this procedure are in the results section. TRANSFUSE LEUKO-REDUCED Routine 08/13/2020 RED BLOOD CELLS 9:34 AM MANAGER POST POCT-ACT Routine 08/13/2020 Results for 9:26 AM MANAGER POST this procedure are in the results section. HGB/HCT (H&H) - STAT LAB STAT 08/13/2020 Res ults for 9:20 AM MANAGER POST this procedure are in the results section. GLUCOSE-STAT LAB STAT 08/13/2020 Results for 9:20 AM MANAGER POST this procedure are in the results section. POTASSIUM-STAT LAB STAT 08/13/2020 Results f or 9:20 AM MANAGER POST this procedure are in the results section. SODIUM NA-STAT LAB STAT 08/13/2020 Results f or 9:20 AM MANAGER POST this procedure are in the results section. BLOOD GAS, ARTERIAL STAT 08/13/2020 Results for 9:20 AM MANAGER POST this procedure are in the results section. BLOOD GAS, ARTERIAL STAT 08/13/2020 Results for 9:20 AM MANAGER POST this procedure are in the results section. POCT-ACT Routine 08/13/2020 Results for 8:59 AM MANAGER POST this procedure are in the results section. ANESTHESIA DASIA Routine 08/13/2020 Results for 8:21 AM MANAGER POST this procedure are in the results section. ABORH, MANUAL STAT 08/13/2020 Results for 8:14 AM MANAGER POST this procedure are in the results section. POCT-ACT Routine 08/13/2020 Results for 8:11 AM MANAGER POST this procedure are in the results section. HGB/HCT (H&H) - STAT LAB STAT 08/13/2020 Res ults for 7:51 AM MANAGER POST this procedure are in the results section. GLUCOSE-STAT LAB STAT 08/13/2020 Results for 7:51 AM MANAGER POST this procedure are in the results section. POTASSIUM-STAT LAB STAT 08/13/2020 Results f or 7:51 AM MANAGER POST this procedure are in the results section. SODIUM NA-STAT LAB STAT 08/13/2020 Results f or 7:51 AM MANAGER POST this procedure are in the results section. BLOOD GAS, ARTERIAL STAT 08/13/2020 Results for 7:51 AM MANAGER POST this procedure are in the results section. CALCIUM, IONIZED STAT 08/13/2020 Results for 7:51 AM MANAGER POST this procedure are in the results section. BLOOD GAS, ARTERIAL STAT 08/13/2020 Results for 7:51 AM MANAGER POST this procedure are in the results section. DASIA,3D 08/13/2020 Coronary artery 7:07 AM MANAGER POST disease with angina pectoris, unspecified vessel or lesion type, unspecified whether [place] or transplanted heart (HCC) Special Needs (ICU BED NEEDED) ENDOSCOPIC HARVEST,VEIN 08/13/2020 7:07 AM MANAGER POST Parekh ry artery disease with angina pectoris, unspecified vessel or lesion type, unspecified whether [place] o r transplanted heart (HCC) Special Needs (ICU BED NEEDED) BYPASS,AORTO CORONARY HENRY/SVG 08/13/2020 7:07 A M MANAGER POST Coronary artery disease with angina pectoris, unspecified vessel or lesion type, unspecified whether [place] or transplanted heart (HCC) Special Needs (ICU BED NEEDED) XR CHEST 1 VIEW STAT 08/13/2020 6:41 Results for this PORTABLE/BEDSIDE AM MANAGER POST procedure a re in the results section. CBC W/PLT COUNT & AUTO STAT 08/13/2020 6:28 R esults for this DIFFERENTIAL AM MANAGER POST procedure are i n the results section. ABORH, MANUAL STAT 08/13/2020 6:28 Results fo r this AM MANAGER POST procedure are i n the results section. TYPE AND SCREEN, STAT 08/13/2020 6:28 Results for this AUTOMATED AM MANAGER POST procedure are i n the results section. LACTATE DEHYDROGENASE Add-On 08/13/2020 6:28 Re sults for this (LDH) AM MANAGER POST procedure are i n the results section. BILIRUBIN, TOTAL AND Add-On 08/13/2020 6:28 Res ults for this DIRECT AM MANAGER POST procedure are i n the results section. PHOSPHORUS STAT Add-on 08/13/2020 6:28 Results for this AM MANAGER POST procedure are i n the results section. APTT STAT 08/13/2020 6:28 Results for this AM MANAGER POST procedure are i n the results section. PROTHROMBIN TIME/INR STAT 08/13/2020 6:28 Res ults for this AM MANAGER POST procedure are i n the results section. CBC W/PLT COUNT & AUTO STAT 08/13/2020 6:28 R esults for this DIFFERENTIAL AM MANAGER POST procedure are i n the results section. LIPID PANEL STAT 08/13/2020 6:28 Results for this AM MANAGER POST procedure are i n the results section. HEMOGLOBIN A1C STAT 08/13/2020 6:28 Results f or this AM MANAGER POST procedure are i n the results section. COMPREHENSIVE METABOLIC STAT 08/13/2020 6:28 Results for this PANEL AM MANAGER POST procedure are i n the results section. MAGNESIUM STAT 08/13/2020 6:28 Results for this AM MANAGER POST procedure are i n the results section. POCT-GLUCOSE METER Routine 08/13/2020 6:01 Resul ts for this AM MANAGER POST procedure are i n the results section. SARS-COV2/RT-PCR ([facility] & Routine 08/08/2020 11:42 Preop testin g Results for this REF LABS) AM MANAGER POST procedure are i n the results section. after 08/24/2019 Results XR chest 1 view portable / bedside (08/19/2020 1:11 PM MANAGER POST)Only the most recent of10 resultswithin the time period is included. Specimen Narrative Performed At FINAL REPORT [facility] RAD, CHEST, 1 VIEW, NON DEPT INDICATION: Post CT removal COMPARISON: Prior day's exam FINDINGS: Portable frontal view of the c hest. IMPRESSION: Limited by underpenetration. Support Lines: Thoracostomy tube on the left has been removed. Lungs and pleura: Lungs remain hypoinfla rachana. Small left effusion. Trace residual left pneumothorax. No pne umothorax. Heart and mediastinum: Stable contours. Stable surgical changes. Additional findings: None. Signed: JR Culver Robert MD Report Verified Date/Time: 08/19/2020 13:19:30 Reading Location: [employer] Reading Room Procedure Note Interface, External Ris In - 08/19/2020 1:21 PM MANAGER POST FINAL REPORT RAD, CHEST, 1 VIEW, NON DEPT INDICATION: Post CT removal COMPARISON: Prior day's exam FINDINGS: Portable frontal view of the c hest. IMPRESSION: Limited by underpenetration. Support Lines: Thoracostomy tube on the left has been removed. Lungs and pleura: Lungs remain hypoinfla rachana. Small left effusion. Trace residual left pneumothorax. No pne umothorax. Heart and mediastinum: Stable contours. Stable surgical changes. Additional findings: None. Signed: JR Culver Robert MD Report Verified Date/Time: 08/19/2020 1 3:19:30 Reading Location: @[employer] Reading Room Performing Organization Address City/State/Zipcode Phone Number [facility] CBC (Hemogram only) (08/19/2020 4:04 AM MANAGER POST)Only the most recent of7 results within the time period is included. [facility] WBC 7.5 3.5 - 10.5 K/L [facility] RBC 3.01 (L) 4.63 - 6.08 M/L [facility] Hemoglobin 8.8 (L) 13.7 - 17.5 GM/DL [facility] Hematocrit 27.9 (L) 40.1 - 51.0 % [facility] MCV 92.7 (H) 79.0 - 92.2 fL [facility] MCH 29.2 25.7 - 32.2 pg [facility] MCHC 31.5 (L) 32.3 - 36.5 GM/DL [facility] RDW 16.0 (H) 11.6 - 14.4 % [facility] Platelets 83 (L) 150 - 450 K/CU MM [facility] MPV 11.5 9.4 - 12.4 fL [facility] nRBC 0 0 - 0 /100 WBC [facility] Specimen Blood Performing Organization Address [facility] Centercode Phone Number [address] [address] CENTER Phosphorus (08/19/2020 4:04 AM MANAGER POST)Only the most recent of8 resultswithin the time period is included. Pathologist Sig nature Phosphorus 4.0 2.3 - 4.7 mg/dL [facility] Specimen Blood Narrative Performed At Senior Front End Engineer ID - [facility] ICA CENTER Performing Organization Address City/[facility]/Zipcode Phone Number [facility] [address] [place] [phone] CENTER Magnesium (08/19/2020 4:04 AM MANAGER POST)Only the most recent of8 resultswithin the time period is included. Pathologist Sig nature Magnesium 2.1 1.6 - 2.6 mg/dL [facility] Specimen Blood Narrative Performed At Senior Front End Engineer ID - [facility] ICA CENTER Performing Organization Address City/[facility] Centercode Phone Number [facility] [address] [place] [address] [place] Basic Metabolic Panel (08/19/2020 4:04 AM MANAGER POST)Only the most recent of6 results within the time period is included. Sodium 138 136 - 145 meq/L [facility] Potassium 3.9 3.5 - 5.1 meq/L [facility] Chloride 105 98 - 107 meq/L [facility] CO2 22 22 - 29 meq/L [facility] BUN 49 (H) 7 - 21 mg/dL [facility] Creatinine 6.96 (H) 0.57 - 1.25 [facility] mg/dL [facility] Glucose 84 70 - 105 mg/dL [facility] Calcium 8.4 8.4 - 10.2 [facility] mg/dL [facility] EGFR 8Comment: ESTIMATED mL/min/1.[address] [facility] GFR IS NOT m [facility] [place] CREATININE CLEARANCE IN PREDICTING GLOMERULAR FILTRATION RATE. ESTIMATED GFR IS NOT APPLICABLE FOR DIALYSIS PATIENTS. Specimen Blood Narrative Performed At Senior Front End Engineer MALLIKA - [facility] Performing Organization Address [facility] Centercode Phone Number [address] [address] CENTER Prepare Leuko-Red PLT (08/17/2020 11:54 PM MANAGER POST) Pathologist Sig nature Unit ABO O Neg SAFETRACE TX UNIT NUMBER [id number] SAFETRACE TX Status TX_TIMEINCHART SAFETRACE TX Blood Bank Product PLATELETS SAFETRACE TX PRODUCT CODE [id number] SAFETRACE [place] Specimen Blood Performing Organization Address [facility] Centercode Phone Number SAFETRACE [place] Prepare Leuko-Red RBC (08/17/2020 11:54 PM MANAGER POST) Pathologist Sig nature CROSSMATCH COMPATIBLE SAFETRACE TX Unit ABO O Pos SAFETRACE TX UNIT NUMBER [id number] SAFETRACE TX Status TX_TIMEINCHART SAFETRACE TX Blood Bank Product RED BLOOD CELLS SAFETRACE [place] PRODUCT CODE [id number] SAFETRACE [place] Specimen Other Performing Organization Address City/State/Zipcode Phone Number SAFETRACE [place] POC-Glucose meter (08/17/2020 3:46 PM MANAGER POST)Only the most recent of14 results within the time period is included. POC-Glucose Meter 178 (H) 70 - 110 mg/dL [facility] Comment: [facility] : TESTED AT [facility] [address] [place] [address], [address] CENTER : Senior Front End Engineer/Outside Cutter Hand ID = [id number] for Lexus Bynum Specimen Blood Performing Organization Address City/[facility]/Zipcode Phone Number [address] [phone] CENTER SARS-CoV2/RT-PCR (Asymptomatic ONLY) (08/17/2020 5:25 AM MANAGER POST)Only the most recent of2 resultswithin the time period is included. SARS-COV2/RT-PCR Negative Not Detected, [facility] Negative, See [facility] external report CENTER for linked test SARS-COV-2 [facility]AT [facility] PERFORMING LAB [facility] Specimen Other - Nasopharyngeal wall structure (b rasta structure) Narrative Performed At Negative result for this test determines that [facility] SARS-CoV-2 RNA was not present in the specimen above the Limit of Detection (LOD). However, Negative results do not preclude SARS-CoV-2 infection and should not be used as the sole basis for treatment or patient management decisions. Negative results must be combined with clinical observations, patient history, and epidemiological information. A false negative result may occur if a specimen is improperly collected, transported or handled. A false negative result should be considered if patient's recent exposures or clinical presentation indicate that COVID-19 (SARS-CoV-2) is likely and diagnostic tests for other causes of illness are negative. Re-testing should be considered in cases of suspected false negatives. The limit of detection for this assay is 800 copies/mL. This SARS CoV-2 test is a real-time RT-PCR test intended for the qualitative detection of nucleic acid from SARS-CoV-2 in a nasopharyngeal swab specimen collected from individuals suspected of COVID-19 by their healthcare provider. This test has not been Food and Drug Administration (FDA) cleared or approved. This is a modified version of an approved Emergency Use Authorization (EUA) and is in the process of review by the FDA. Once authorized by the FDA, the issued EUA will be effective until the declaration that circumstances exist justifying the authorization of the emergency use of in vitro diagnostic tests for detection and/or diagnosis of COVID-19 is terminated under Section 564(b)(2) of the Act or the EUA is revoked under Section 564(g) of the Act. Fact Sheet for Healthcare Providers: https://www.[employer]/sites/default/files/pro duct/documents/Fact_Sheet_HC_Providers_Lyra_SA RS-CoV-2.pdf Fact Sheet for Healthcare Patients: https://www.[employer]/sites/default/files/pro duct/documents/Fact_Sheet_Patients_Lyra_SARS-C oV-2.pdf Performing Laboratory: [address] [place] [address] Performing Organization Address City/State/[place] [address] CENTER Transfuse Leuko-Red PLT (08/17/2020 12:16 AM MANAGER POST)Only the most recent of9 resultswithin the time period is included.HEMODIALYSIS INPATIENT (08/16/2020 6:27 PM MANAGER POST) Narrative Performed At Ramon Carrillo RN 08/16/2020 6: 30 PM - S/P Hemodialysis x 4 hours - Removed 3L as tolerated. - AVF + B/T, no s/sx of infection noted. No edema/petechiae on site. Bleeding stopped on both arterial and venous access, applied new gauze and taped securely. - 1unit PRBC transfused and completed. N o suspected reactions noted. - Consent verified prior to initiation o f treatment. - Report given to MARY Bacon. Patient stab le post HD Lab Results Component Value Date WBC 8.7 08/16/2020 HGB 7.3 (L) 08/16/2020 HCT 22.7 (L) 08/16/2020 MCV 92.3 (H) 08/16/2020 PLT 49 (L) 08/16/2020 Lab Results Component Value Date GLUCOSE 89 08/16/2020 CALCIUM 8.7 08/16/2020 NA 140 08/16/2020 K 3.7 08/16/2020 CO2 26 08/16/2020 CL 103 08/16/2020 BUN 36 (H) 08/16/2020 CREATININE 6.05 (H) 08/16/2020 ' Ramon YUANN, RN II 7S6- Adult Dialysis [phone] Transfuse Leuko-Red RBC (08/16/2020 4:59 PM MANAGER POST)Only the most recent of7 resultswithin the time period is included.Calcium, Ionized (08/16/2020 4:06 AM MANAGER POST)Only the most recent of7 resultswithin the time period is included. Pathologist Sig nature Calcium, Ion 1.12 1.12 - 1.27 mmol/L [facility] pH, Blood 7.42 [facility] Specimen Blood Performing Organization Address City/State/Zipcode Phone Number [facility] [address] [place] [address] CENTER US thoracentesis (08/15/2020 1:25 PM MANAGER POST) Specimen Narrative Performed At FINAL REPORT [facility] Ultrasound guided right thoracentesis. Clinical History: Right pleural effusi on. Modality: Ultrasound. Sedation: None. Deckhand Crab Boat: Kamilla Marte PA-C Implementation Specialist Payroll: None. Estimated Blood Loss: 1cc Specimen: 1200 cc of charles fluid. Technique: Informed consent was obtain ed. The risks of pain, bleeding, infection, lung collapse/pneum othorax, injury to adjacent structures, and adverse medication react ions were discussed with the patient. The patient's right hemithora x was scanned from the back, with the patient in a left lateral decub itus position. After the largest fluid pocket area was marked, th e skin was prepped and draped in the usual sterile manner. The area was anesthetized with 2% lidocaine, a 5 F one-step catheter was a dvanced into the pleural space under ultrasound guidance. After c ompletion of drainage, the catheter was removed. There was no evide nce of immediate complication. Post procedure chest x-r ay is pending. Impression: Successful and uncomplicated ultrasound guided right thoracentesis. Signed: Ashlyn Leroy MD Report Verified Date/Time: 08/15/2020 15:25:50 Reading Location: [facility] [id number] Ultrasoun d Reading Room Electronically signed by: ASHLYN LEROY MD o n 08/15/2020 03:25 PM Procedure Note Interface, External Ris In - 08/15/2020 3:28 PM MANAGER POST FINAL REPORT Ultrasound guided right thoracentesis. Clinical History: Right pleural effusio n. Modality: Ultrasound. Sedation: None. Deckhand Crab Boat: Kamilla Marte PA-C Implementation Specialist Payroll: None. Estimated Blood Loss: 1cc Specimen: 1200 cc of charles fluid. Technique: Informed consent was obtaine d. The risks of pain, bleeding, infection, lung collapse/pneum othorax, injury to adjacent structures, and adverse medication react ions were discussed with the patient. The patient's right hemithorax was scanned from the back, with the patient in a left lateral decub itus position. After the largest fluid pocket area was marked, th e skin was prepped and draped in the usual sterile manner. The area w as anesthetized with 2% lidocaine, a 5 F one-step catheter was a dvanced into the pleural space under ultrasound guidance. After c ompletion of drainage, the catheter was removed. There was no evide nce of immediate complication. Post procedure chest x-ra y is pending. Impression: Successful and uncomplicated ultrasound guided right thoracentesis. Signed: Ashlyn Leroy MD Report Verified Date/Time: 08/15/2020 1 5:25:50 Reading Location: [facility] [id number] Ultrasoun d Reading Room Performing Organization Address City/State/Zipcode Phone Number GE RIS PT/aPTT (08/15/2020 9:33 AM MANAGER POST)Only the most recent of2 resultswithin the time period is included. Pathologist Sig nature Protime 14.9 (H) 11.9 - 14.2 seconds [facility] INR 1.21 <=5.90 [facility] PTT 27.4 22.5 - 36.0 seconds [facility] Specimen Blood Narrative Performed At Effective 01/18/2019: PT Reference Range [facility] Change New: 11.9-14.2 Previous: 11.7-14.7 RECOMMENDED COUMADIN/WARFARIN INR THERAPY RANGES STANDARD DOSE: 2.0-3.0 Includes: PROPHYLAXIS for venous thrombosis, systemic embolization; TREATMENT for venous thrombosis and/or pulmonary embolus. HIGH RISK: Target INR is 2.5-3.5 for patients wiht mechanical heart valves. Performing Organization Address [facility] Centercode Phone Number [address] [address] [place] MISSAEL Titer & Pattern (08/15/2020 3:47 AM MANAGER POST) Pathologist Sig nature MISSAEL Titer 1:160 [facility] MISSAEL Pattern Homogeneous [facility] Specimen Blood Performing Organization Address [facility] Centercoor Phone Number [address] [address] [place] Anti-Nuclear Antibody (MISSAEL) (08/15/2020 3:47 AM MANAGER POST) Pathologist Sig nature MISSAEL Positive (A) Negative [facility] Specimen Blood Narrative Performed At Test performed by IFA method. [facility] Performing Organization Address [facility] Centercoor Phone Number [address] [phone] CENTER Prepare PLT (08/14/2020 11:54 PM MANAGER POST)Only the most recent of3 resultswithin the time period is included. Pathologist Sig nature Unit ABO O Pos SAFETRACE TX UNIT NUMBER [id number] SAFETRACE TX Status TX_TIMEINCHART SAFETRACE TX Blood Bank Product PLATELETS SAFETRACE TX PRODUCT CODE [id number] SAFETRACE TX Unit ABO O Neg SAFETRACE TX UNIT NUMBER [id number] SAFETRACE TX Status TX_TIMEINCHART SAFETRACE TX Blood Bank Product PLATELETS SAFETRACE TX PRODUCT CODE [id number] SAFETRACE TX Performing Organization Address [facility] Phone Number SAFETRACE [place] Prepare plasma (08/14/2020 11:54 PM MANAGER POST) Pathologist Sig nature Unit ABO O Pos SAFETRACE TX UNIT NUMBER [id number] SAFETRACE TX Status TX_TIMEINCHART SAFETRACE TX Blood Bank Product FFP SAFETRACE TX PRODUCT CODE [id number] SAFETRACE TX Unit ABO O Pos SAFETRACE TX UNIT NUMBER [id number] SAFETRACE TX Status TX_TIMEINCHART SAFETRACE TX Blood Bank Product FFP SAFETRACE TX PRODUCT CODE [id number] SAFETRACE TX Performing Organization Address [facility] Phone Number SAFETRACE [place] Prepare RBC (08/14/2020 11:54 PM MANAGER POST)Only the most recent of2 resultswithin the time period is included. Pathologist Sig nature CROSSMATCH COMPATIBLE SAFETRACE TX Unit ABO O Pos SAFETRACE TX UNIT NUMBER [id number] SAFETRACE TX Status TX_TIMEINCHART SAFETRACE TX Blood Bank Product RED BLOOD CELLS SAFETRACE TX PRODUCT CODE [id number] SAFETRACE TX CROSSMATCH COMPATIBLE SAFETRACE TX Unit ABO O Pos SAFETRACE TX UNIT NUMBER [id number] SAFETRACE TX Status TX_TIMEINCHART SAFETRACE TX Blood Bank Product RED BLOOD CELLS SAFETRACE TX PRODUCT CODE [id number] SAFETRACE TX Performing Organization Address [facility] Phone Number SAFETRACE [place] Oxygen saturation, measured (08/14/2020 10:38 AM MANAGER POST)Only the most recent of3 resultswithin the time period is included. Pathologist Sig nature O2 Saturation (Measured) 92.4 % [facility] Specimen Blood Performing Organization Address [facility] Phone Number [facility] [address] [place] [phone] CENTER US abdomen limited (08/14/2020 10:23 AM MANAGER POST) Specimen Narrative Performed At FINAL REPORT [facility] TECHNIQUE: Grayscale ultrasound of the r ight abdomen. INDICATION: Thrombocytopenia - evaluate for cirrhosis and/or splenomegaly. COMPARISON: None. FINDINGS: MIDLINE VASCULATURE: The visualized infe rior vena cava is unremarkable. The maximum visualized aor tic diameter is 1.9 cm. LIVER: The liver is mildly enlarged at 1 8.5 cm right hepatic lobe length. Smooth liver contour. No focal l esions. The main portal vein is patent and measures 0.8 cm in diamete r. BILIARY: Gallbladder: No gallstones or sludge. No gallbladder wall thickening or pericolic cystic fluid. The gallbladd er is mildly distended. Negative sonographic Johnson sign. Common bile duct measures 0.4 cm, within normal limits. No intrahepatic biliary ductal dilatation. PANCREAS: Incompletely visualized due to overlying bowel gas. The partially visualized pancreatic body is normal. SPLEEN: No splenomegaly. The spleen ezra ures 9.7 cm in length. PERITONEUM: No free fluid. RIGHT KIDNEY: The right kidney is small. A right upper pole renal lesion measures 3.3 x 3.2 x 3.1 cm and h as posterior acoustic enhancement. A right lower pole renal le shane measures 1.3 x 1.3 x 1.57 m has posterior acoustic enhancemen t. No hydronephrosis. No sonographically evident solid mass lesio n. Moderate size right pleural effusion. IMPRESSION: 1.Mild splenomegaly. 2.Moderate-sized right pleural effusion. 3.Two right renal lesions measure up to 3.3 cm and are most likely simple renal cysts but indeterminate on this ultrasound. This can be further evaluated with a CT of the abdom en with and without intravenous contrast, renal mass protoco l, on a nonemergent basis. 4.The gallbladder is mildly distended. H owever, this is a nonspecific finding which can be seen with fasting. Signed: Juan Carlos Wall MD Report Verified Date/Time: 08/14/2020 11:53:09 Procedure Note Interface, External Ris In - 08/14/2020 11:55 AM MANAGER POST FINAL REPORT TECHNIQUE: Grayscale [facility] the [facility] abdomen. INDICATION: Thrombocytopenia - evaluate for cirrhosis and/or splenomegaly. COMPARISON: None. FINDINGS: MIDLINE VASCULATURE: The visualized infe rior vena cava is unremarkable. The maximum visualized aor tic diameter is 1.9 cm. LIVER: The liver is mildly enlarged at 1 8.5 cm right hepatic lobe length. Smooth liver contour. No focal l esions. The main portal vein is patent and measures 0.8 cm in diamete r. BILIARY: Gallbladder: No gallstones or sludge. No gallbladder wall thickening or pericolic cystic fluid. The gallbladd er is mildly distended. Negative sonographic Johnson sign. Common bile duct measures 0.4 cm, within normal limits. No intrahepatic biliary ductal dilatation. PANCREAS: Incompletely visualized due to overlying bowel gas. The partially visualized pancreatic body is normal. SPLEEN: No splenomegaly. The spleen ezra ures 9.7 cm in length. PERITONEUM: No free fluid. RIGHT KIDNEY: The right kidney is small. A right upper pole renal lesion measures 3.3 x 3.2 x 3.1 cm and h as posterior acoustic enhancement. A right lower pole renal le shane measures 1.3 x 1.3 x 1.57 m has posterior acoustic enhancemen t. No hydronephrosis. No sonographically evident solid mass lesio n. Moderate size right pleural effusion. IMPRESSION: 1.Mild splenomegaly. 2.Moderate-sized right pleural effusion. 3.Two right renal lesions measure up to 3.3 cm and are most likely simple renal cysts but indeterminate on this ultrasound. This can be further evaluated with a CT of the abdom en with and without intravenous contrast, renal mass protoco l, on a nonemergent basis. 4.The gallbladder is mildly distended. H owever, this is a nonspecific finding which can be seen with fasting. Signed: Juan Carlos Wall MD Report Verified Date/Time: 08/14/2020 1 1:53:09 Performing Organization Address City/State/Zipcode Phone Number [facility] HIV-1 Antigen with HIV-1/2 Antibody (08/14/2020 3:52 AM MANAGER POST) Pathologist Sig nature HIV-1 Antigen with Nonreactive Nonreactive [facility] HIV 1&2 Antibody [facility] Specimen Blood Narrative Performed At Senior Front End Engineer MALLIKA - FREDERIC Damon [facility] Performing Organization Address City/State/Zipcode Phone Number [facility] [address] [place] [address] [place] Hepatitis B Panel (08/14/2020 3:52 AM MANAGER POST) Pathologist Sig nature Hep B Core Total Ab Nonreactive Nonreactive [facility] Hep B S Ab 747.6 (H) <8.0 mIU/mL [facility] HBsAg Screen Nonreactive Nonreactive [facility] Specimen Blood Narrative Performed At Senior Front End Engineer ID - [facility] Performing Organization Address City/[facility] Cent[facility] Phone Number [address] [address] [place] Hepatitis C antibody (08/14/2020 3:52 AM MANAGER POST) Pathologist Sig [facility] Hepatitis C Ab Nonreactive Nonreactive [facility] Specimen Blood Narrative Performed At Senior Front End Engineer ID - [facility] Performing Organization Address City/[facility] Cent[facility]ode Phone Number [address] [address] [place] Hemoglobin A1c (08/14/2020 3:52 AM MANAGER POST)Only the most recent of2 resultswithin the time period is included. Pathologist Sig [facility] Hemoglobin A1C 5.4 4.3 - 6.1 % [facility] Specimen Blood Performing Organization Address [facility] Cent[facility]oor Phone Number [address] [address] [place] Blood gas, arterial (08/14/2020 3:52 AM MANAGER POST)Only the most recent of11 results within the time period is included. Pathologist Sig nature pH, Arterial 7.40 7.35 - 7.45 [facility] pCO2, Arterial 48 (H) 35 - 45 mm Hg [facility] pO2, Arterial 121 (H) 80 - 90 mm Hg [facility] O2 Sat, Arterial 98.4 (H) 96.0 - 97.0 % [facility] HCO3, Arterial 29 21 - 29 mmol/L [facility] Base Excess, Arterial 3.7 (H) -2.0 - 3.0 [facility] mmol/L [facility] Patient Temperature 36.9 [facility] FIO2 36.0 [facility] Specimen Blood, Arterial Performing Organization Address City/[facility] Cent[facility]ode Phone Number [address] [address] [place] Lipid panel (08/14/2020 3:52 AM MANAGER POST)Only the most recent of2 resultswithin the time period is included. Pathologist Sig nature Triglycerides 96 mg/dL [facility]ICAL [place] Cholesterol 79 mg/dL [facility] IC[facility] [place] HDL 23 mg/dL [facility] [place] LDL Calculated 37 mg/dL [facility] [place] Specimen Blood Narrative Performed At Triglyceride Reference Range: [facility] Low Risk <150 Borderline 150-199 High Risk 200-499 Very High Risk >=500 Cholesterol Reference Range: Low Risk <200 Borderline 200-239 High Risk >240 HDL Cholesterol Reference Range: Low Risk >=60 High Risk <40 LDL Cholesterol Reference Range: Optimal <100 Near Optimal 100-129 Borderline 130-159 High 160-189 Very High >=190 Senior Front End Engineer MALLIKA Damon Performing Organization Address City/[facility] Cent[facility]oor Phone Number [address] [address] [place] Potassium-Stat Lab (08/13/2020 7:34 PM MANAGER POST)Only the most recent of10 results within the time period is included. Pathologist Sig nature Potassium 3.9 3.6 - 5.5 meq/L [facility] Specimen Blood, Arterial Performing Organization Address City/[facility] Centercode Phone Number [address] [address] [place] Sodium Na-Stat Lab (08/13/2020 7:34 PM MANAGER POST)Only the most recent of10 results within the time period is included. Pathologist Sig nature Sodium 141 136 - 145 meq/L [facility] Specimen Blood, Arterial Performing Organization Address [facility] Cent[facility] Phone Number [address] [address] [place] Glucose-Stat Lab (08/13/2020 7:34 PM MANAGER POST)Only the most recent of10 results within the time period is included. Pathologist Sig nature Glucose 146 (H) 70 - 110 mg/dL [facility] Specimen Blood, Arterial Performing Organization Address [facility] Centercoor Phone Number [address] [address] [place] HGB/HCT (H&H)-Stat Lab (08/13/2020 7:34 PM MANAGER POST)Only the most recent of10 resultswithin the time period is included. Pathologist Sig nature Hemoglobin 9.2 (L) 13.0 - 16.8 GM/DL [facility] Hematocrit 27.0 (L) 40.0 - 50.0 % [facility] Specimen Blood, Arterial Performing Organization Address [facility] Phone Number [address] [address] [place] Lactic Acid, Arterial (08/13/2020 7:34 PM MANAGER POST)Only the most recent of2 results within the time period is included. Pathologist Sig nature Lactate, Art 1.1 0.5 - 2.2 mmol/L [facility] Specimen Blood, Arterial Narrative Performed At Senior Front End Engineer ID - BS [facility] Performing Organization Address [facility] Centercoor Phone Number [address] [address] [place] Thromboelastograph (TEG) (08/13/2020 2:30 PM MANAGER POST)Only the most recent of3 resultswithin the time period is included. TEG Activated Clotting 7.8 (H) 4.0 - 7.0 [facility] Time minutes [facility] TEG Fibrinogen 58.1 (L) 61.0 - 73.0 [facility] Activity degrees [facility] TEG Platelet 49.3 (L) 55.0 - 65.[address] [facility] Aggregation [facility] TEG Fibrinolysis 0.5 0.0 - 5.0 % [facility] TEG-H Activated 8.1 (H) 4.0 - 7.0 [facility] Clotting Time minutes [facility] TEG-H Fibrinogen 64.7 61.0 - 73.0 [facility] Activity degrees [facility] TEG-H Platelet 53.8 (L) 55.0 - 65.[address] [facility] TEG-H Fibrinolysis 0.0 0.0 - 5.0 % [facility] Specimen Blood Performing Organization Address [facility] Centercode Phone Number [address] [address] [place] Prothrombin time/INR (08/13/2020 2:30 PM MANAGER POST)Only the most recent of6 results within the time period is included. Pathologist Sig nature Protime 16.5 (H) 11.9 - 14.2 seconds [facility] INR 1.37 <=5.90 [facility] Specimen Blood Narrative Performed At Effective 01/18/2019: PT Reference Range [facility] Change New: 11.9-14.2 Previous: 11.7-14.7 RECOMMENDED COUMADIN/WARFARIN INR THERAPY RANGES STANDARD DOSE: 2.0-3.0 Includes: PROPHYLAXIS for venous thrombosis, systemic embolization; TREATMENT for venous thrombosis and/or pulmonary embolus. HIGH RISK: Target INR is 2.5-3.5 for patients wiht mechanical heart valves. Performing Organization Address City/[facility] Centercode Phone Number [address] [place] [address] [facility] Comprehensive metabolic panel (08/13/2020 1:44 PM MANAGER POST)Only the most recent of2 resultswithin the time period is included. Protein, Total 5.1 (L)Comment: 6.0 - 8.3 [facility] Specimen slightly gm/dL [facility] Albumin 3.0 (L)Comment: 3.5 - 5.0 [facility] Specimen slightly g/dL [facility] Alkaline 65 40 - 150 U/L [facility] Phosphatase [facility] Total Bilirubin 1.0Comment: 0.2 - 1.2 [facility] Specimen slightly mg/dL [facility] Sodium 145 136 - 145 [facility] meq/L [facility] Potassium 3.9Comment: 3.5 - 5.1 [facility] Specimen slightly meq/L [facility] Chloride 106 98 - 107 [facility] meq/L [facility] CO2 29 22 - 29 meq/L [facility] BUN 23 (H) 7 - 21 mg/dL [facility] Creatinine 4.66 (H)Comment: 0.57 - 1.25 [facility] Specimen slightly mg/dL [facility] Glucose 164 (H) 70 - 105 [facility] mg/dL [facility] Calcium 10.4 (H)Comment: 8.4 - 10.2 [facility] Discordant CALCIUM mg/dL [facility] result compared to MEDICAL CENTER previous result; clinical correlation required. AST 24Comment: Specimen 5 - 34 U/L [facility] ALT 13Comment: Specimen 6 - 55 U/L [facility] EGFR 13Comment: mL/min/1.73 [facility] ESTIMATED GFR IS sq m [facility] NOT ACCURATE MEDICAL CENTER CREATININE CLEARANCE IN PREDICTING GLOMERULAR FILTRATION RATE. ESTIMATED GFR IS NOT APPLICABLE FOR DIALYSIS PATIENTS. Specimen Blood Narrative Performed At Senior Front End Engineer ID - RM [facility] Performing Organization Address [facility]/Zipcode Phone Number [address] [address] [place] Bilirubin, total and direct (08/13/2020 12:30 PM MANAGER POST)Only the most recent of2 resultswithin the time period is included. Pathologist Sig nature Total Bilirubin 1.0 0.2 - 1.2 mg/dL [facility] Bilirubin, Direct 0.5 0.1 - 0.5 mg/dL [facility] Specimen Blood Narrative Performed At Senior Front End Engineer ID - ARMIDA [facility] Performing Organization Address [facility] Centercoor Phone Number [address] [address] [place] Lactate dehydrogenase (LDH) (08/13/2020 12:30 PM MANAGER POST)Only the most recent of2 resultswithin the time period is included. Pathologist Sig nature LDH 171 125 - 220 U/L [facility] Specimen Blood Narrative Performed At Senior Front End Engineer ID - ARMIDA [facility] Performing Organization Address [facility] Phone Number [address] [address] [place] aPTT (08/13/2020 12:27 PM MANAGER POST)Only the most recent of5 resultswithin the time period is included. Pathologist Sig nature PTT 33.2 22.5 - 36.0 seconds [facility] Specimen Blood Performing Organization Address City/[facility] Centercode Phone Number [address] [address] [place] Fibrinogen (08/13/2020 12:27 PM MANAGER POST)Only the most recent of4 resultswithin the time period is included. Pathologist Sig nature Fibrinogen 255 225 - 434 mg/dl [facility] Specimen Blood Performing Organization Address City/State/[facility] Centercode Phone Number [address] [address] [place] Platelet count (08/13/2020 12:27 PM MANAGER POST)Only the most recent of4 resultswithin the time period is included. Pathologist Sig nature Platelets 138 (L) 150 - 450 K/CU MM [facility] Specimen Blood Narrative Performed At Senior Front End Engineer ID - [id number] [facility] Performing Organization Address [facility] Centercode Phone Number [address] [address] [place] Haptoglobin (08/13/2020 12:27 PM MANAGER POST) Pathologist Sig nature Haptoglobin 61 14 - 258 mg/dL [facility] Specimen Blood Narrative Performed At Senior Front End Engineer ID - ROSIANG [facility] Performing Organization Address [facility] Phone Number [address] [address] [place] Hepatitis B surface antigen (08/13/2020 12:27 PM MANAGER POST) Pathologist Sig nature HBsAg Screen Nonreactive Nonreactive [facility] Specimen Blood Narrative Performed At Specimen is considered negative for HBsA g. [facility] Performing Organization Address [facility] Phone Number [address] [address] [place] Reticulocyte count (08/13/2020 12:27 PM MANAGER POST)Only the most recent of2 results within the time period is included. Pathologist Sig nature % Retic 1.8 0.5 - 1.8 % [facility] Specimen Blood Narrative Performed At Senior Front End Engineer ID - [id number] [facility] Performing Organization Address [facility] Centerc[facility] Phone Number [address] [address] [place] CBC with platelet count + automated diff (08/13/2020 11:41 AM MANAGER POST)Only the most recent of2 resultswithin the time period is included. Pathologist Sig nature WBC 8.5 3.5 - 10.5 [facility] RBC 2.57 (L) 4.63 - 6.08 [facility] M/L [facility] Hemoglobin 7.6 (L) 13.7 - 17.5 [facility] GM/DL [facility] Hematocrit 23.8 (L) 40.1 - 51.0 % [facility] MCV 92.6 (H) 79.0 - 92.2 fL [facility] MCH 29.6 25.7 - 32.2 pg [facility] MCHC 31.9 (L) 32.3 - 36.5 [facility] RDW 16.5 (H) 11.6 - 14.4 % [facility] Platelets 181 150 - 450 K/CU [facility] MPV 10.0 9.4 - 12.4 fL [facility] nRBC 0 0 - 0 /100 WBC [facility] % Neutros 75 % [facility] % Lymphs 16 % [facility] % Monos 6 % [facility] % Eos 1 % [facility] % Baso 0 % [facility] # Neutros 6.40 (H) 1.78 - 5.38 [facility] # Lymphs 1.34 1.32 - 3.57 [facility] # Monos 0.52 0.30 - 0.82 [facility] # Eos 0.12 0.04 - 0.54 [facility] # Baso 0.02 0.01 - 0.08 [facility] K/L [facility] Immature 1 0 - 1 % [facility] Granulocytes-Relative [facility] Specimen Blood Performing Organization Address City/[facility]/Zipcode Phone Number [address] [address] [place] Transfuse plasma (08/13/2020 11:19 AM MANAGER POST)Only the most recent of2 resultswithin the time period is included.POC ACTIVATED CLOTTING TIME (08/13/2020 10:58 AM MANAGER POST)Only the most recent of6 resultswithin the time period is included. Activated Clotting 120 sec [facility] Comment: [facility] : 74-137 seconds, Baseline CENTER : TESTED AT [address], [address] : Senior Front End Engineer/Outside Cutter Hand ID = [id number] for ARELIS CURRY Specimen Blood Performing Organization Address [facility] Centercode Phone Number [address] [address] [place] Peripheral Blood Smear - Hold only (08/13/2020 10:15 AM MANAGER POST) Pathologist Sig nature Peripheral Smear Save save [facility] Specimen Blood Performing Organization Address City/[facility]/Zipcode Phone Number [address] [address] [place] DASIA (08/13/2020 8:21 AM MANAGER POST) Narrative Performed At Kristy Khan MD 08/13/2020 10:55 A M DASIA Date: 08/13/2020 8:21 AM Sex: Male Locat ion: OR Requesting Physician: Stewart Flores MD Examiner: Kristy Khan MD Jacobs, Daniel Aaron Intubated Estefany rachana Patient screened for esoph disease: Yes Insertion: easy Probe Type: multiplane Modalities: 2D, CFM, CWD and PWD Pre Intervention Summary: Aorta: No aneu rysm, no dissection, no mobile plaques. Small pericardial effusion. Lar ge left sided pleural effusion. AV: trileaflet morphology, No aortic christina nosis, No aortic regurgitation LV: Normal chamber size , No LVH, normal systolic function (EF 55% by Simpsons assessment), No RWMA, no thromb us MV: normal morphology, Trace mitral regu rgitation, No mitral stenosis LA: no EMILY thrombus, normal size and fun ction PV: limited visualization RV: Normal sized chamber, Normal functio n TAPSE 28mm, no thrombus TV: normal morphology, No tricuspid regu rgitation RA: no thrombus No PFO by color dopper flow All findings communicated to surgical te am. Post Intervention Summary: SP ACB not on inotropy LVEF 60-65% via Simpsons. No HILDA No pericardial effusion. Large left side d pleural effusion. No new aortic pathology. Valves as previously described. Exam otherwise as previously described. ABORH, manual (08/13/2020 8:14 AM MANAGER POST)Only the most recent of2 resultswithin the time period is included. Pathologist Sig nature ABO Grouping O [facility] Rh Factor POS [facility] Specimen Blood Performing Organization Address City/State/Zipcode Phone Number [facility] [address] [place] [address] Type and screen, automated (08/13/2020 6:28 AM MANAGER POST) Pathologist Sig nature Ab Scrn NEGATIVEComment: [facility] entered manually echo [facility] 1 Specimen Blood Performing Organization Address City/[facility]/Zipcode Phone Number [facility] [address] [place], [place] [phone] after 08/24/2019 Insurance Payer Benefit Plan / Subscriber ID Effective Dates Phone Addre ss Type Group MEDICARE MEDICARE A B [id number] 2020-Presen Medicare t [employer]NA - MGD CARE A[employer]NA INDEMNITY [id number] 2000-Present Comm NON CONTR Advance Directives For more information, please contact: [phone] Code Status Date Activated Date Inactivated Comments Full Code 08/13/2020 6:12 AM 08/20/2020 1:25 PM This code status was determined by: Patient
--- OUTSIDE RECORDS SUMMARY | 2020-08-24 14:15 | XMS REPORT | Continuity of Care Document ---
:1955 Author Organization [facility] Care Team Providers Name Role Phone [facility] Unavailable Un available Problems Problem Status Onset Classification Date Comments Sourc e Date Reported N18.6 Active 017 [facility] WOUND INFECTION Active 017 [place] Infection 03/07/2017 following a 017 [place] procedure, initial encounter Arteriovenous 03/07/2017 fistula, acquired 017 [place] [facility] ESRD Active 017 [facility] Anxiety (finding) Active Problem 06/04/2017 M H OPID 012 [facility] Coronary Active Problem 06/04/2017 [facility] arteriosclerosis [place], (disorder) [facility] Conduction Active Problem 06/04/2017 [facility] disorder of the [place], heart (disorder) [facility] Cerebrovascular Active Problem 06/04/2017 OPID accident [facility], (disorder) [facility] Dependence on Active Problem 06/04/2017 not using at OPID continuous this time [facility] , positive airway pressure [facility] ventilation (finding) Diabetes mellitus Active Problem 06/04/2017 M H OPID (disorder) [facility] End stage renal Active Problem 06/04/2017 Temporary fistula placed 2-3 months ago. pre op for fistula placement in left arm. OPID disease (disorder) hemodialysi s at home [facility] Fracture of Resolved Problem 06/04/20172012 OPID shoulder [facility], (disorder) [facility] Hyperlipidemia Active Problem 06/04/2017 O PID (disorder) [facility] Hypertensive Active Problem 06/04/2017 OPI D disorder, systemic [place], arterial (disorder) [facility] Intracranial Resolved Problem 06/04/2017 patietn had O PID venous thrombosis stroke [place], (disorder) [facility] Myocardial Resolved Problem 06/04/20171998 OPID infarction [facility] , (disorder) [facility] Obesity (disorder) Active Problem 06/04/2017 OPID [facility] Peripheral [facility] [place], ([facility]order) [facility] Sleep apnea Active Problem 06/04/2017 OPID (finding) [facility] Medications Medication Details Route Status Patient Ordering Order Source Instructions Provider Date heparin 5,000 unit, Inactive Route: SUB-Q, 2016 [facility] Q8H, Dosing Weight 123.182, kg, Start date: 06/01/17 16:00:00 CDT, Duration: 30 day, Stop date: 07/01/17 8:00:00 SCRAP CRUSHER Ofirmev 1,000 mg, Inactive Route: IV, 2016 [facility] ONCE, Dosing Weight 123.182, kg, Start date: 06/01/17 14:37:00 CDT, Stop date: 06/01/17 14:37:00 CDT Insulin Lispro Notes: Roll in Inactive palms of hands 2016 [facility] gently; Do not shake `vigorously. (Same as: Humalog ) "Single Patient Use Only " WASTE: F/P - Black; E - [employer]ItAll Trash Bin Stable for 28 days at room temperature. Expires in days from D ate Acetazolamide 250 mg, Route: Inactive IV, ONCE, 2016 [facility] Dosing Weight 123.182, kg, PRN Cramps, Start date: 06/01/17 14:07:00 CDT Ondansetron Notes: (Same Inactive as: Zofran) 2016 [facility] MEDICATION WASTE Product Size: 4 mg Product Wasted: ___ mg Meperidine Notes: (Same Inactive as: Demerol) 2016 [facility] "Use Precaution in Elderly, Seizure disorders, and Renal impairment&quot ; Promethazine 6.25 mg, Route: Inactive IVPB, ONCE, 2016 [facility] Dosing Weight 123.182, kg, PRN Nausea & Vomiting, Start date: 06/01/17 14:07:00 CDT Fentanyl Notes: (Same Inactive as: Sublimaze) 2016 [facility] Preservative free. Hydromorphone 0.5 mg, 0.5 mL, Inactive H Route: IVP, 2016 [facility] Drug form: INJ, Q5Min, Dosing Weight 123.182, kg, PRN Pain Score 7-10, Start date: 06/01/17 14:07:00 CDT, Duration: 4 doses or times, Stop date: Limited # of times Flumazenil Notes: (Same Inactive as: Romazicon) 2016 [facility] Naloxone Notes: Same as Inactive Narcan 2016 [facility] Diphenhydramine Notes: (Same Inactive as: Benadryl) 2016 [facility] Hydralazine Notes: (Same Inactive as: Apresoline) 2016 [facility] Push over 5 minutes Metoprolol Notes: (Same Inactive as: Lopressor) 2016 [facility] Push over 2 minutes Acetaminophen Notes: Max Inactive acetaminophen 2016 [facility] 4000 mg/day (4 gm/day). (Same as: Tylenol Extra Strength) Acetaminophen 300 2 tab, PO, Q4H, Active MG / Codeine PRN Pain Score 2016 [facility] Phosphate 30 MG 4-6, # 24 tab, Oral Tablet 0 Refill(s) Zofran Notes: (Same Inactive as: Zofran) 2016 [facility] MEDICATION WASTE Product Size: 4 mg Product Wasted: ___ mg acetaminophen-cod Notes: Do not Inactive eine #3 exceed 4gm/day 2016 [facility] of acetaminophen. (Same as: Tylenol with Codeine # 3) Acetaminophen Notes: Do not Inactive exceed 4 2016 [facility] gm/day. (Same as: Tylenol) vancomycin (ANES) Route: IV, Drug Inactive 06/01 form: INJ, 2016 [facility] ONCE, Stop date: 06/01/17 12:53:00 CDT propofol (ANES) Route: IV, Drug Inactive form: INJ, 2016 [facility] ONCE, Stop date: 06/01/17 12:53:00 CDT lidocaine (ANES) Route: IV, Drug Inactive form: INJ, 2016 [facility] ONCE, Stop date: 06/01/17 12:53:00 CDT fentaNYL (ANES) Route: IV, Drug Inactive form: INJ, 2017 [facility] ONCE, Stop date: 06/01/17 12:53:00 CDT Cefazolin 2 gm, Route: Inactive IVPB, Drug 2016 [facility] form: INJ, ONCALL, Dosing Weight 123.636, kg, Start date: 06/01/17 11:00:00 CDT, Duration: 1 doses or times, ABX Indication: Surgical Prophylaxis Vancomycin 1 gm, Route: Inactive IV, ONCE, 2016 [facility] Dosing Weight 123.636, kg, Start date: 06/01/17 10:14:00 CDT, Stop date: 06/01/17 10:14:00 CDT, ABX Indication: Surgical Prophylaxis Benadryl Notes: (Same Inactive as: Benadryl) 2016 [facility] Ceftriaxone 1 gm, Route: Inactive IVPB, Drug 2016 [facility] form: PDR/INJ, ONCE, Dosing Weight 123.636, kg, Priority: STAT, Start date: 03/04/17 16:11:00 CDT, Duration: 1 doses or times, Stop date: 03/04/17 16:11:00 CDT, ABX Indication: Skin/Soft Tissue Infection Vancomycin 2001 mg: Inactive infuse over 2.5 2016 t hours MEDICATION WASTE Product Size: 1000 mg Product Wasted: ___ mg Cephalexin 500 MG 500 mg = 1 cap, Active Oral Capsule PO, BID, X 10 2017 [facility] [Keflex] day, # 20 cap, 0 Refill(s) doxycycline 100 mg = 1 tab, Active hyclate 100 MG PO, Q12H, X 10 2017 [place] Oral Tablet day, # 20 tab, 0 Refill(s) heparin Notes: porcine Inactive heparin 2016 [facility] Metoclopramide Notes: (Same Inactive as: Reglan) 2016 [facility] Flumazenil Notes: (Same Inactive as: Romazicon) 2016 [facility] Naloxone Notes: Same as Inactive Narcan 2016 [facility] Fentanyl Notes: (Same Inactive as: Sublimaze) 2016 [facility] Preservative free. Ondansetron 4 mg, Route: Inactive IVP, ONCE, 2016 [facility] Dosing Weight 124.091, kg, PRN Nausea & Vomiting, Start date: 02/26/17 11:26:00 CDT Labetalol Notes: (Same Inactive as: Normodyne, 2016 [facility] Trandate) Push over 2 minutes Give bolus over 2-3 minutes. Hydralazine Notes: (Same Inactive as: Apresoline) 2016 [facility] t Push over 5 minutes Acetaminophen 300 2 tab, PO, Q4H, Active MG / Codeine PRN Pain Score 2016 [place] Phosphate 30 MG 4-6, # 24 tab, Oral Tablet 0 Refill(s) Zofran Notes: (Same Inactive as: Zofran) 2016 [facility] MEDICATION WASTE Product Size: 4 mg Product Wasted: ___ mg acetaminophen-cod Notes: Do not Inactive eine #3 exceed 4gm/day 2016 [facility] of acetaminophen. (Same as: Tylenol with Codeine # 3) Acetaminophen Notes: Do not Inactive exceed 4 2016 [facility] gm/day. (Same as: Tylenol) protamine (ANES) Route: IV, Drug Inactive form: INJ, 2016 [facility] , Stop date: 02/26/17 10:10:00 CDT heparin (ANES) Route: IV, Drug Inactive form: INJ, 2016 [facility] , Stop date: 02/26/17 10:06:00 CDT propofol (ANES) Route: IV, Drug Inactive form: INJ, 2016 [facility] , Stop date: 02/26/17 9:41:00 CDT fentaNYL (ANES) Route: IV, Drug Inactive form: INJ, 2016 [facility] , Stop date: 02/26/17 9:31:00 CDT midazolam (ANES) Route: IV, Drug Inactive form: SOLN, 2016, Stop date: 02/26/17 9:26:00 CDT vancomycin (ANES) Route: IV, Drug Inactive 02/26 (ANES) form: INJ, 2016 [facility] Start date: 02/26/17 9:09:00 CDT, Stop date: 02/26/17 10:09:00 CDT sodium chloride Route: IV, Inactive 0.9% 500 ml INJ Total Volume: 2016 [place] (ANES) 500, Start date: 02/26/17 8:49:00 CDT, Stop date: 02/26/17 9:49:00 CDT Cefazolin Notes: Same as: Inactive Ancef 2017 [facility] insulin detemir 15 UNITS, Active 100 UNT/ML SUB-Q, BID, am 2016 [facility] est Injectable AND pm MEALS Solution [Levemir] Probiotic Formula 1 cap, PO, Active Daily, 2016 [facility] PROBIOTIC PEARLS COMPLETE( DIGESTIVE hEALTH) Multiple Vitamins 1 tab, PO, Active oral tablet Daily, 2016 [facility] SPECTRAVITE ( ULTRA MEN 50 PLUS) Calcium Carbonate 250 mg, PO, BID Active 2016 [facility] ferrous sulfate 325 mg = 1 tab, Active 325 mg oral PO, TID 2016 [facility] enteric coated tablet calcitriol 0.25 0.25 microgram Active H mcg oral capsule = 1 cap, PO, 2016 [place] Every Other Day rosuvastatin 5 mg 5 mg = 1 tab, Active oral tablet PO, Daily 2016 [facility] allopurinol 100 50 mg, PO, Active mg oral tablet Daily 2016 [facility] Hydralazine 50 mg = 1 tab, Active Hydrochloride 50 PO, TID [address] [facility] [address] MG Oral Tablet carvedilol 6.25 6.25 mg = 1 Active mg oral tablet tab, PO, BID 2016 [facility] gabapentin 100 MG 200 mg = 2 cap, Active Oral Capsule PO, AFTER 2017 [facility] DIALYSIS sevelamer 800 mg = 1 tab, Active carbonate 800 MG PO, TID-Meals 2016 [place] Oral Tablet [Renvela] Sodium 650 mg = 1 tab, Active Bicarbonate 650 PO, TID 2016 [facility] t MG Oral Tablet Furosemide 40 MG 40 mg = 1 tab, Active Oral Tablet PO, Bedtime 2016 [facility] t Furosemide 40 MG 80 mg = 2 tab, Active Oral Tablet PO, QAM 2016 [facility] apixaban 2.5 MG 2.5 mg = 1 tab, Active Oral Tablet PO, BID 2016 [facility] [Eliquis] Allergies, Adverse Reactions, Alerts Substance Category Reaction Severity Reaction Status Date Comments S ource type Reported NKFA Assertion Drug Active allergy [facility] t Immunizations No Data Provided for This Section Results Order Name Results Value Reference Date Interpretation Comments Mary [facility]ce Range CHEM PANEL POC BUN 35 7 - 22 06/01 [facility] CHEM PANEL POC Glucose 118 70 - 99 06/01 [facility] CHEM PANEL POC Sodium 142 135 - 145 06/01 [facility] CHEM PANEL POC 4.6 3.5 - 5.1 06/01 Potassium [facility] CHEM PANEL POC Chloride 101 95 - 109 06/01 [facility] CHEM PANEL POC 11.6 14.0 - 10 Hemoglobin 18.0 [facility] CHEM PANEL POC 34.0 42.0 - 06/01 Hematocrit 54.0 [facility] HEMATOLOGY POC 12.2 14.0 - 06/01 Hemoglobin 18.0 [facility] HEMATOLOGY POC 36.0 42.0 - 10 Hematocrit 54.0 [facility] HEMATOLOGY POC BUN 33 7 - 22 06/01 [facility] HEMATOLOGY POC Glucose 173 70 - 99 06/01 [facility] HEMATOLOGY POC Chloride 100 95 - 109 06/01 [facility] HEMATOLOGY POC 4.3 3.5 - 5.1 06/01 Potassium [facility] HEMATOLOGY POC Sodium 142 135 - 145 06/01 [facility] CHEM PANEL eGFR 11 03/04 Comment: The [facility] eGFR is calculated using the CKD-EPI [...] 10.8 10.0 - 03/04 MH 20.0 /2016 [facility] CHEM PANEL Calcium Lvl 9.2 8.5 - 10.5 03/04 [facility] CHEM PANEL BUN 35 7 - 22 03/04 [facility] CHEM PANEL Creatinine 5.40 0.50 - 07 MH Lvl 1.40 /2017 [facility] CHEM PANEL Glucose Lvl 156 70 - 99 03/04 [facility] CHEM PANEL Sodium Lvl 138 135 - 145 03/04 [facility] CHEM PANEL Potassium 3.8 3.5 - 5.1 / MH Lvl /2016 [facility] CHEM PANEL Chloride Lvl 97 95 - 109 03/04 [facility] CHEM PANEL CO2 34 24 - 32 03/04 [facility] HEMATOLOGY Segs-Bands # 5.4 1.5 - 8.1 03/04 [facility] HEMATOLOGY Basophils 0.5 0.0 - 1.0 03/04 [facility] HEMATOLOGY Monocytes # 1.1 0.0 - 0.8 03/04 [facility] HEMATOLOGY Lymphocytes 3.4 1.0 - 5.5 / MH # /2016 [facility] HEMATOLOGY Basophils # 0.1 0.0 - 0.2 03/04 [facility] HEMATOLOGY Eosinophils 0.4 0.0 - 0.5 / MH # /2016 [facility] HEMATOLOGY Segs 52.7 45.0 - 03/04 MH 75.0 /2017 [facility] HEMATOLOGY Lymphocytes 32.9 20.0 - 03/04 MH 40.0 /2017 [facility] HEMATOLOGY Monocytes 10.3 2.0 - 12.0 03/04 [facility] HEMATOLOGY Eosinophils 3.6 0.0 - 4.0 03/04 [facility] HEMATOLOGY MCV 91.1 80.0 - 03/04 MH 94.0 /2017 [facility] HEMATOLOGY RBC 4.52 4.70 - 03/04 MH 6.10 /2016 [facility] HEMATOLOGY Hgb 13.5 14.0 - 03/04 MH 18.0 /2016 [facility] HEMATOLOGY MCH 29.9 27.0 - 03/04 MH 31.0 /2016 [facility] HEMATOLOGY Hct 41.2 42.0 - 03/04 MH 54.0 /2016 [facility] HEMATOLOGY MPV 8.1 7.4 - 10.4 07/13 MH /2016 [facility] HEMATOLOGY MCHC 32.8 32.0 - 03/04 MH 36.0 /2016 [facility] HEMATOLOGY RDW 14.1 11.5 - 03/04 MH 14. /2016 [facility] HEMATOLOGY Platelet 114 133 - 450 03/04 /2016 [facility] HEMATOLOGY WBC 10.3 3.7 - 10.4 03/04 /2016 [facility] HEMATOLOGY POC 13.9 14.0 - 02/26 Hemoglobin 18.0 /2016 [facility] HEMATOLOGY POC Glucose 126 70 - 99 02/26 /2016 [facility] HEMATOLOGY POC BUN 43 7 - 22 02/26 /2016 [facility] HEMATOLOGY POC 41.0 42.0 - 02/26 Hematocrit 54.0 /2016 [facility] HEMATOLOGY POC 4.1 3.5 - 5.1 02/26 Potassium /2016 [facility] HEMATOLOGY POC Chloride 103 95 - 109 02/26 /2016 [facility] HEMATOLOGY POC Sodium 142 135 - 145 02/26 /2016 [facility] ELECTROLYTE POC Sodium 141 135 - 145 02/26 S /2016 [facility] ELECTROLYTE POC BUN 46 7 - 22 02/26 S /2016 [facility] ELECTROLYTE POC Chloride 103 95 - 109 02/26 S /2016 [facility] ELECTROLYTE POC 4.3 3.5 - 5.1 02/26 S Potassium /2016 [facility] ELECTROLYTE POC Glucose 163 70 - 99 02/26 S /2016 [facility] ELECTROLYTE POC 15.6 14.0 - 02/26 S Hemoglobin 18.0 /2016 [facility] ELECTROLYTE POC 46.0 42.0 - 02/26 S Hematocrit 54.0 /2016 [facility] BLOOD BANK ABO/Rh O POS 02/24 RESULTS /2016 [facility] BLOOD BANK Antibody Negative 02/24 RESULTS Scrn (02/24/17 10:22 AM) /2016 [facility] est ELECTROLYTE AGAP 13.1 10.0 - 02/24 S 20.0 [facility] ELECTROLYTE eGFR 11 02/24 Result Comment: The [facility] eGFR is calculated using the CKD-EPI [...] ELECTROLYTE Calcium Lvl 9.3 8.5 - 10.5 07/05 S [facility] ELECTROLYTE Chloride Lvl 102 95 - 109 07/05 S /2016 [facility] ELECTROLYTE CO2 28 24 - 32 07/ S /2016 [facility] ELECTROLYTE Sodium Lvl 139 135 - 145 07/05 S /2016 [facility] ELECTROLYTE Potassium 4.1 3.5 - 5.1 07/05 S Lvl /2016 [facility] ELECTROLYTE Creatinine 5.30 0.50 - 07/ S Lvl 1.40 /2016 [facility] ELECTROLYTE BUN 47 7 - 22 07/ S /2016 [facility] ELECTROLYTE Glucose Lvl 129 70 - 99 / S [facility] HEMATOLOGY PT 12.7 12.0 - 07 14.7 /2016 [facility] HEMATOLOGY INR 0.93 0.85 - 0705 1.17 /2016 [facility] HEMATOLOGY PTT 28.3 22.9 - 07/ 35.8 /2016 [facility] HEMATOLOGY MPV 8.7 7.4 - 10.4 / [facility] HEMATOLOGY Platelet 120 133 - 450 02/24 [facility] HEMATOLOGY MCHC 32.9 32.0 - 07/ 36.0 /2016 [facility] HEMATOLOGY RDW 14.7 11.5 - 07/ 14.5 /2016 [facility] HEMATOLOGY RBC 4.73 4.70 - 07/05 6.10 /2017 [facility] HEMATOLOGY Hgb 14.1 14.0 - 07/ 18.0 /2017 [facility] HEMATOLOGY WBC 12.8 3.7 - 10.4 07/ /2016 [facility] HEMATOLOGY MCV 90.2 80.0 - 07/ 94.0 /2016 [facility] HEMATOLOGY Hct 42.7 42.0 - 07/ 54.0 /2016 [facility] MCH 29.7 27.0 - 07/05 MH 31.0 /2017 [facility] Basophils # 0.1 0.0 - 0.2 07/ [place] HEMATOLOGY Monocytes 8.0 2.0 - 12.0 07/ [facility] HEMATOLOGY Basophils 1.0 0.0 - 1.0 / /2016 [facility] HEMATOLOGY Segs-Bands # 7.6 1.5 - 8.1 02/24 [facility] HEMATOLOGY Eosinophils 3.4 0.0 - 4.0 / /2016 [facility] HEMATOLOGY Lymphocytes 3.6 1.0 - 5.5 / # /2017 [facility] HEMATOLOGY Lymphocytes 28.2 20.0 - 07 MH 40.0 /2016 [facility] HEMATOLOGY Eosinophils 0.4 0.0 - 0.5 02/24 # /2017 [facility] HEMATOLOGY Monocytes # 1.0 0.0 - 0.8 02/24 /2016 [facility] HEMATOLOGY Segs 59.4 45.0 - 07 75.0 /2016 [facility] SPECIAL Hgb A1C 8.0 <=5.6 % 02/24 CHEMISTRY /2016 [facility] Pathology Reports No Data Provided for This Section Diagnostic Reports Report Value Date Source Chest 1view DX Chest 1view DX 02/24/2017 VLADIMIR [facility] CLINICAL HISTORY:pre-op for fistula placement in [...] abnormality is noted in the chest. SL: [id number] Consultation Notes No Data Provided for This Section Discharge Summaries No Data Provided for This Section History and Physicals No Data Provided for This Section Vital Signs Vital Sign Value Date Comments Source Systolic (mm Hg) 120 06/01/2017 [facility] Diastolic (mm Hg) 70 06/01/2017 [facility] Respitory Rate 15 06/01/2017 [facility] Systolic (mm Hg) 108 06/01/2017 [facility] Diastolic (mm Hg) 56 06/01/[address] Respitory Rate 19 06/01/2017 [place] Systolic (mm Hg) 118 06/01/2017 [place] Diastolic (mm Hg) 70 06/01/[address] Respitory Rate 10 06/01/2017 [facility] Temperature Oral (F) 98.5 F 06/01/2017 [place] BMI Calculated 38.97 05/31/2017 [facility] Height 177.8 cm 05/31/2017 [facility] Weight 123.182 05/31/2017 [place] Systolic (mm Hg) 126 03/04/2017 [place] Diastolic (mm Hg) 88 03/04/[address] [facility] [address] Temperature Oral (F) 97.9 F 03/04/2017 [place] Respitory Rate 20 03/04/2017 [facility] Heart Rate 70 03/04/2017 [facility] Respitory Rate 20 03/04/2017 [facility] Heart Rate 70 03/04/2017 [facility] Systolic (mm Hg) 128 03/04/2017 [place] Diastolic (mm Hg) 71 03/04/[address] [facility] [address] BMI Calculated 42.69 03/04/2017 [facility] Height 170.18 cm 03/04/2017 [facility] Weight 123.636 03/04/2017 [place] Respitory Rate 20 03/04/2017 [facility] Heart Rate 73 03/04/2017 [facility] Temperature Oral (F) 99 F 03/04/2017 [place] [facility] Systolic (mm Hg) 131 03/04/2017 [place] Diastolic (mm Hg) 67 03/04/[address] Respitory Rate 18 02/26/2017 [facility] Systolic (mm Hg) 137 02/26/2017 [place] Diastolic (mm Hg) 76 02/26/[address] Respitory Rate 8 02/26/2017 [facility] Systolic (mm Hg) 127 02/26/2017 [place] Diastolic (mm Hg) 74 02/26/[address] Respitory Rate 13 02/26/2017 [facility] Systolic (mm Hg) 133 02/26/2017 [place] Diastolic (mm Hg) 71 02/26/[address] [facility] [address] Temperature Oral (F) 97.9 F 02/26/2017 [place] Heart Rate 73 02/24/2017 [facility] Temperature Oral (F) 99.2 F 02/24/2017 [facility] Weight 124.091 02/24/2017 [facility] BMI Calculated 39.25 02/24/2017 [facility] Height 177.8 cm 02/24/2017 [facility] Encounters Location Location Encounter Encounter Reason Attending ADM DC Stat us Source Details Type Number For Provider Date Date Visit [facility] Outpt Diag [id number] [facility] 02/24 02/25 [facility] [id number] Elder 02/26 02/26 [facility] Emergency [id number] Bill Khan 03/04 03/04 [facility]2016 [facility] [id number] Elder 06/01 06/01 [facility] Procedures Procedure Code Date Perfomer Comments Source Central line [id number] for hemodialysis [facility] insertion<sup>1</s 7 up> AV - Creation of [id number] [facility] arteriovenous 6 fistula Procedure<sup>2, [id number] left ACL [facility] 3</sup> repairLeft knee arthroscopy Procedure [id number] OPID [facility] Procedure<sup>1, [id number] left ACL [facility] [address] 2</sup> repairLeft knee [facility] , arthroscopy [facility] Assessment and Plan Assessment and Plan Date Source Extracted from:Title: Clinical Document 02/26/2017 [facility] Author: Elder Reynolds MD Date: 02/26/17 PATIENT NAME: SIMONE WALLER DATE OF OPERATION: 02/26/2017 PREOPERATIVE DIAGNOSES: 1. End-stage renal disease. 2. Diabetes. 3. History of stroke. 4. Hypertension. POSTOPERATIVE DIAGNOSES: 1. End-stage renal disease. 2. Diabetes. 3. History of stroke. 4. Hypertension. PROCEDURE(S): 1. Left arm venogram. 2. Creation of left wrist AV fistula. 3. Superior venacavogram. SURGEON: Elder Reynolds MD BARGE ENGINEER: CHANTAL Martines ANESTHESIA: General by [place]. ESTIMATED [...] History Date Source Social History TypeResponse 05/31/2017 [place] Substance Abuse Use: None. Exercise Self assessment: [...]
--- OUTSIDE RECORDS SUMMARY | 2020-08-24 14:21 | XMS REPORT | Continuity of Care Document ---
:1955 Author Organization [facility] t Address [address] [place] [address] Care Team Providers Name Role Phone Nando Olson MD Primary Care Physician Yvrose Arenas MD Attending Clinician Bill HART Attending Clinician Orlando Reis Attending Clinician Unavailable YVROSE ARENAS Attending Clinician Unavailable Erin GUAJARDO Attending Clinician Deysi DEL RIO, Andreia Attending Clinician Jose HART Attending Clinician Rodolfo ALTAMIRANO Attending Clinician Unavailable Edmar Reynolds Attending Clinician Bill Attending Clinician YVROSE ARENAS Admitting Clinician Unavailable Payers Payer Name Policy Type Policy Effective Date Expiration Date Sour ce Number MEDICAREMEDICARE A [id number] 2020 YENNY Serna [id number] 2019- 00:00:00 - Medical [facility]icare Center AETNA - MGD CAREAETNA [id number] YENNY Kelly INDEMNITY NON 00:00:00 - Medical [id number] Ce nter -PresentComm Problems Condition Condition Condition Status Onset Resolution Last Treating Co mments Source Name Details Category Date Date Treatment Clinician Date Essential Essential Disease Active 2019-08 YENNY Medina hypertensi hypertensi 2-29 Sweta kes - on on 00:00: Medical 00 Center Thrombocyt Thrombocyt Disease Active 2019-[address] [facility] s/p ACB x2 s/p ACB x2 Disease Active 2019-[address] - - 10-14 [facility] - - Mark-12 00:00: Me dical / / 00 Center Difficulty Difficulty Disease Active 2016-08 [place] swallowing swallowing 10-19 Me thodi 00:00: st 00 Dysphagia Dysphagia Disease Active 2016-08 [place] 10-18 Methodi 00:00: st 00 N18.6 Diagnosis Active 2016-082017-06-01 Mem oria 0-02 11:32:00 l N18.6 00:00: Colin 00 Active 05/24/2017 [facility] Type 2 Type 2 Disease Active [place] diabetes diabetes 05-19 Method i mellitus mellitus 00:00: st 00 WOUND Diagnosis Active 2017-06-08 Mem oria INFECTION 7-13 09:19:00 l WOUND 14:12: [place] INFECTION 00 Active 03/04/2017 [facility] ESRD Diagnosis Active 2017-02-26 Mem oria 6-23 06:06:00 l ESRD 00:00: Colin 00 Active 02/12/2017 [facility] Anxiety Problem Active 2017-06-04 Dayron boubacar (finding) 1 02:00:03 l Anxiety 00:00: [place] (finding) 00 Active 08/23/2011 Problem 06/04/2017 [facility] Fracture Problem Resolve 2017-06-04 Me moria of d 02:00:03 l shoulder Fracture Herm doris (disorder) of shoulder (disorder) Resolved Problem 06/04/20172012 [facility] Intracrani Problem Resolve 2017-06-04 Memoria al venous d 02:00:03 l thrombosis Michael n (disorder) Intracrani al venous thrombosis (disorder) Resolved Problem 06/04/2017 patietn had stroke [facility] Myocardial Problem Resolve 2017-06-04 Memoria infarction d 02:00:03 l (disorder) Michael n Myocardial infarction (disorder) Resolved Problem 06/04/20171998 [facility] Conduction Problem Active 2017-06-04 M emoria disorder 02:00:03 l of the Colin heart Conduction (disorder) disorder of the heart (disorder) Active Problem 06/04/2017 [facility] Cerebrovas Problem Active 2017-06-04 M emoria cular 02:00:03 l accident [place] (disorder) Cerebrovas cular accident (disorder) Active Problem 06/04/2017 [facility] Dependence Problem Active 2017-06-04 M emoria on 02:00:03 l continuous Michael n positive Dependence airway on pressure continuous ventilatio positive n airway (finding) pressure ventilatio n (finding) Active Problem 06/04/2017 not using at this time [facility] Diabetes Problem Active 2017-06-04 Mem oria mellitus 02:00:03 l (disorder) Diabetes He rmann mellitus (disorder) Active Problem 06/04/2017 [facility] End stage Problem Active 2017-06-04 Me moria renal 02:00:03 l disease End Colin (disorder) stage renal disease (disorder) Active Problem 06/04/2017 Temporary fistula placed 2-3 months ago. pre op for fistula placement in left arm.hemodi alysis at home [facility] Hyperlipid Problem Active 2017-06-04 M emoria emia 02:00:03 l (disorder) Michael n Hyperlipid emia (disorder) Active Problem 06/04/2017 [facility] Hypertensi Problem Active 2017-06-04 M emoria ve 02:00:03 l disorder, Colin systemic Hypertensi arterial ve (disorder) disorder, systemic arterial (disorder) Active Problem 06/04/2017 [facility] Obesity Problem Active 2017-06-04 Dayron boubacar (disorder) 02:00:03 l Obesity [place] (disorder) Active Problem 06/04/2017 [facility] Peripheral Problem Active 2017-06-04 M emoria vascular 02:00:03 l disease Colin (disorder) Peripheral vascular disease (disorder) Active Problem 06/04/2017 swolling [facility] Sleep Problem Active 2017-06-04 Memor ia apnea 02:00:03 l (finding) Sleep Michael n apnea (finding) Active Problem 06/04/2017 [facility] ESRD on ESRD on Disease Active [facility] Infection Problem 2017-0 2017-03-07 2017-03-07 Memoria following 03-04 04:57:57 04:57:57 l a 05:00: Colin procedure, Infection 00 initial following encounter a procedure, initial encounter 03/04/2017 03/07/2017 [facility] Arterioven Problem 2016-2017-03-07 2017-03-07 Memoria ous 03-04 04:57:57 04:57:57 l fistula, 05:00: Colin acquired Arterioven 00 ous fistula, acquired 7 03/07/2017 [facility] Allergies, Adverse Reactions, Alerts Allergy Allergy Status Severity Reaction(s) Onset Inactive Treating Comm ents Source Name Type Date Date Clinician NKFA NKFA Active Lukasz Shaw Family History Family Member Diagnosis Comments Start Date Stop Date Source Natural mother Diabetes [facility] Natural mother Hypertension [place] [facility] Social History Social Habit Start Date Stop Date Quantity Comments Source History of tobacco Current sm[facility] History SDOH [facility] - Alcohol Std Drinks Medica l Center History SDOH [facility] - Alcohol Binge Medical Jenaro ter Sex Assigned At [facility] St Sweta kes - [facility] Exposure to Not sure [facility] - SARS-CoV-2 (event) [facility] Cigarettes smoked 2020-08-14 2020-08-[address] [facility] - current (pack per 00:00:00 00:00:00 Medical Center day) - Reported Cigarette 2020-08-14 2020-08-[address] [facility] - pack-years 00:00:00 00:00:00 [facility] Tobacco use and 2020-08-14 2020-08-[address] [facility] Sweta kes - exposure 00:00:00 00:00:00 [facility] Alcohol intake 2020-08-14 2020-08-[address] - 00:00:00 00:00:00 non-drinker Medical Gabriel nunez (finding) History SDOH 2020-08-08 2020-08-[address] [facility] - Alcohol Frequency 00:00:00 00:00:00 [facility] Social History 2017-02-24 2017-02-24 Noemi shin 13:49:27 13:49:27 Smoking Status Start Date Stop Date Source Former smoker 2020-08-14 00:00:00 2020-08-14 00:00:[address] [facility] Medications Ordered Filled Start Stop Current Ordering Indication Dosage Frequency Signature Comments Components Source Medication Medication Date Date Medication? Clinician (SIG) Name Name ferrous 2019-08- Yes 325mg Take [address] sulfate 325 2-31 12-31 tablet [facility] - (65 FE) MG 00:00: 23:59 (325 mg Med ical tablet 00 :00 total) by Center mouth every other day. rosuvastati 2019-08- Yes 20mg QD Take [address] n (CRESTOR) 2-30 12-30 tablet (20 L ukes - 20 MG 00:00: 23:59 mg total) Medica l tablet 00 :00 by mouth Center daily. losartan 2019-08- Yes 100mg QD Take 1 [facility] (COZAAR) 2-30 12-30 tablet [facility] - 100 MG 00:00: 23:59 (100 mg Medical tablet 00 :00 total) by Center mouth daily. carvediloL 2019-08 Yes 25mg Take [address] (COREG) 25 2-29 by mouth 2 [facility] - MG tablet 11:25: (two) Medical 01 times Center daily with breakfast and dinner. allopurinoL 2019-08 Yes 100mg QD Take [address] (ZYLOPRIM) 2-29 mg by [facility] - 100 MG 11:25: mouth Medical tablet 01 daily. [place] aspirin 81 2019-08 Yes 81mg QD Take [address] MG EC 2-29 by mouth [facility] - tablet 11:25: daily. Medical 01 Center multivitami 2019-08 Yes 1{capsu QD Take [address] n capsule 2-29 le} capsule by Luke s - 11:25: mouth Medical 01 daily. [place] cyanocobala 2019-08 Yes 1000ug Inject [facility] min 2-29 1,000 mcg [facility] - (VITAMIN 11:25: intramuscu Med ical B-12) 1,000 01 larly Center mcg/mL every 30 injection (thirty) days. apixaban 2019-08 Yes 2.5mg Q.5D Take 2.[address] (ELIQUIS) 2-29 mg by [facility] - 2.5 mg Tab 11:25: mouth 2 Medi amberly tablet 01 (two) Center times daily. hydrALAZINE 2019-08- No 100mg Q.5D Take [address] (APRESOLINE 2-29 12-29 mg by [facility] - ) 100 MG 09:27: 00:00 mouth 2 Medic al tablet 10 :00 (two) Center times daily. rosuvastati 2019-08- No 5mg QD Take [address] [facility] (CRESTOR) 2-29 12-29 by mouth [place] [facility] - 5 MG tablet 09:27: 00:00 daily. Med ical 10 :00 Center furosemide 2019-08- No 80mg Q.5D Take [address] (LASIX) 80 2-29 12-29 by mouth 2 Sweta kes - MG tablet 09:27: 00:00 (two) Medica l 10 :00 times Center daily. folic 2019-08 Yes 1{tbl} QD Take [address] acid-multiv 2-29 tablet by [facility] - itamins 00:00: mouth Medical (NEPHRO-VIT 00 daily. Center E) 0.8 mg Tab tablet hydrALAZINE 2019-08- Yes 100mg Take [address] (APRESOLINE 2-29 12-29 tablet [facility] - ) 100 MG 00:00: 23:59 (100 mg Medic al tablet 00 :00 total) by Center mouth every 8 (eight) hours. cyanocobala 2019-08 Yes Intestinal INJECT 1 [place] min 1,000 1-04 malabsorpti MILLILITER Methodi mcg/mL 00:00: on, INTO st injection 00 unspecified SHOULDER, type THIGH, OR BUTTOCKS ONCE EVERY 30 DAYS syringe 2019-08 Yes Intestinal As [place] with needle 1-04 malabsorpti Directed Methodi 3 mL 25 x 00:00: on, st 58" 00 unspecified syringe type cyanocobala 2019-08- No Intestinal INJECT 1 [place]ja min 1,000 1-04 11-04 malabsorpti MILLILITER Methodi mcg/mL 00:00: 00:00 on, INTO st injection 00 :00 unspecified SHOULDER, type THIGH, OR BUTTOCKS ONCE EVERY 30 DAYS cyanocobala 2019- No Intestinal INJECT 1 [place]ja min 1,000 8-25 11-04 malabsorpti MILLILITER Methodi mcg/mL 00:00: 00:00 on, INTO st injection 00 :00 unspecified SHOULDER, type THIGH, OR BUTTOCKS ONCE EVERY 30 DAYS cyanocobala 2019- No Intestinal INJEC 1 ML [place]ja min 1,000 6-03 08-25 malabsorpti INTO Me thodi mcg/mL 00:00: 00:00 on, SHOULD,THI st injection 00 :00 unspecified GH, OR type BUTTOCKS EVERY 30 DAYS cyanocobala 2020- No Intestinal INJEC 1 ML [place] min 1,000 2-11 06-03 malabsorpti INTO Me thodi mcg/mL 00:00: 00:00 on, SHOULD,THI st injection 00 :00 unspecified GH, OR type BUTTOCKS EVERY 30 DAYS omeprazole Yes Status post TAKE 1 [place] (PriLOSEC) 2-25 bariatric CAPSULE BY Methodi 40 MG 00:00: surgery MOUTH st capsule 00 EVERY DAY multivitami 2018- Yes 1{capsu QD Take 1 [place] capsule 1-25 le} capsule by Meth ramana 10:18: mouth st 55 daily. aspirin Yes 81mg QD Take 81 mg [place] (ECOTRIN) 1-25 by mouth Method i 81 MG 10:18: daily. st enteric 55 coated tablet syringe 2020- No Intestinal As [place] with needle 02-22 11-04 malabsorpti Directed Methodi 3 mL 25 x 00:00: 00:00 on, st 58" 00 :00 unspecified syringe type cyanocobala 2019- No Intestinal 1000ug Q30D Inject 1 [place] min 1,000 7- 02-11 malabsorpti mL (1,000 Methodi mcg/mL 00:00: 00:00 on, mcg total) st injection 00 :00 unspecified into the type shoulder, thigh, or buttocks every 30 (thirty) days. Start 1 week after surgery. heparin 2016- No 5,000 Memoria 0-10 unit, l 21:00: Route: [place] 00 SUB-Q, Q8H, Dosing Weight 123.182, kg, Start date: 06/01/17 16:00:00 CDT, Duration: 30 day, Stop date: 07/01/17 8:00:00 DIRECTOR CARDIOVASCULAR Ofirmev 2016-08 No 1,000 mg, Memor ia 0-10 Route: IV, l 19:37: ONCE, Colin Dosing Weight 123.182, kg, Start date: 06/01/17 14:37:00 CDT, Stop date: 06/01/17 14:37:00 CDT Insulin 2016-08 No Notes: Memoria Lispro 0-10 Roll in l 19:07: palms of hands gently; Do not shake `vigorousl y. (Same as: Humalog ) "Single Patient Use Only " WASTE: F/P - Black; E - Municipal Trash Bin Stable for 28 days at room temperatur e. Expires in days from ____Date Acetazolami 2016-08 No 250 mg, Mem oria de 0-10 Route: IV, l 19:07: ONCE, Dosing Weight 123.182, kg, PRN Cramps, Start date: 06/01/17 14:07:00 CDT Ondansetron 2016-08 No Notes: Dayron boubacar 0-10 (Same as: l 19:07: Zofran) MEDICATION WASTE Product Size: 4 mg Product Wasted: ___ mg Meperidine 2016-08 No Notes: Memor ia 0-10 (Same as: l 19:07: Demerol) "Use Precaution in Elderly, Seizure disorders, and Renal impairment " Promethazin 2016-08 No 6.25 mg, Me moria e 0-10 Route: l 19:07: IVPB, ONCE, Dosing Weight 123.182, kg, PRN Nausea & Vomiting, Start date: 06/01/17 14:07:00 CDT Fentanyl 2016-08 No Notes: Memoria 0-10 (Same as: l 19:07: Sublimaze) Preservat jose free. Hydromorpho 2016-08 No 0.5 mg, Mem oria ne 0-10 0.5 mL, l 19:07: Route: IVP, Drug form: INJ, Q5Min, Dosing Weight 123.182, kg, PRN Pain Score 7-10, Start date: 06/01/17 14:07:00 CDT, Duration: 4 doses or times, Stop date: Limited # of times Flumazenil 2016-08 No Notes: Memor ia 0-10 (Same as: l 19:07: Romazicon) Naloxone 2016-08 No Notes: Memoria 0-10 Same as l 19:07: Narcan Diphenhydra 2016-08 No Notes: Dayron boubacar mine 0-10 (Same as: l 19:07: Benadryl) Hydralazine 2016-08 No Notes: Dayron boubacar 0-10 (Same as: l 19:07: Apresoline ) Push over 5 minutes Metoprolol 2016-08 No Notes: Memor ia 0-10 (Same as: l 19:07: Lopressor) Push over 2 minutes Acetaminoph 2016-08 No Notes: Max Memoria en 0-10 acetaminop l 19:07: hen 4000 [place] 00 mg/day (4 gm/day). (Same as: Tylenol Extra Strength) Acetaminoph 2016-08 Yes 2 tab, PO, Memoria en 300 MG / 0-10 Q4H, PRN l Codeine 19:01: Pain Score Herm odris Phosphate 00 4-6, # 24 30 MG Oral tab, 0 Tablet Refill(s) Zofran 2016-08 No Notes: Memoria 0-10 (Same as: l 18:58: Zofran) MEDICATION WASTE Product Size: 4 mg Product Wasted: ___ mg acetaminoph 2016-08 No Notes: Do M emoria en-codeine 0-10 not exceed l #3 18:58: 4gm/day of acetaminop hen. (Same as: Tylenol with Codeine # 3) Acetaminoph 2016-08 No Notes: Do M emoria en 0-10 not exceed l 18:58: 4 gm/day. Colin (Same as: Tylenol) vancomycin 2016-08 No Route: IV, M emoria (ANES) 0-10 Drug form: l 17:53: INJ, ONCE, Stop date: 06/01/17 12:53:00 CDT propofol 2016-08 No Route: IV, Mem oria (ANES) 0-10 Drug form: l 17:53: INJ, ONCE, Stop date: 06/01/17 12:53:00 CDT lidocaine 2016-08 No Route: IV, Me moria (ANES) 0-10 Drug form: l 17:53: INJ, ONCE, Stop date: 06/01/17 12:53:00 CDT fentaNYL 2016-08 No Route: IV, Mem oria (ANES) 0-10 Drug form: l 17:53: INJ, ONCE, Stop date: 06/01/17 12:53:00 CDT Cefazolin 2016-08 No 2 gm, Memoria 0-10 Route: l 16:00: IVPB, Drug form: INJ, ONCALL, Dosing Weight 123.636, kg, Start date: 06/01/17 11:00:00 CDT, Duration: 1 doses or times, ABX Indication : Surgical Prophylaxi s Vancomycin 2016-08 No 1 gm, Memori a 0-10 Route: IV, l 15:14: ONCE, Dosing Weight 123.636, kg, Start date: 06/01/17 10:14:00 CDT, Stop date: 06/01/17 10:14:00 CDT, ABX Indication : Surgical Prophylaxi s Benadryl No Notes: Memoria 7-13 (Same as: l 22:50: Benadryl) Ceftriaxone No 1 gm, Memor ia 03-04 Route: l 21:11: IVPB, Drug form: PDR/INJ, ONCE, Dosing Weight 123.636, kg, Priority: STAT, Start date: 03/04/17 16:11:00 CDT, Duration: 1 doses or times, Stop date: 03/04/17 16:11:00 CDT, ABX Indication : Skin/Soft Tissue Infection Vancomycin No 2000 mg: Me moria 7-13 infuse l 21:11: over 2.5 hours MEDICATION WASTE Product Size: 1000 mg Product Wasted: ___ mg Cephalexin Yes 500 mg = 1 M emoria 500 MG Oral 03-04 cap, PO, l Capsule 21:00: BID, X 10 Anel nn [Keflex] 00 day, # 20 cap, 0 Refill(s) doxycycline Yes 100 mg = 1 Memoria hyclate 100 7-13 tab, PO, l MG Oral 20:59: Q12H, X 10 Herm doris Tablet 00 day, # 20 tab, 0 Refill(s) heparin No Notes: Memoria 7- porcine l 21:00: heparin Metoclopram No Notes: Dayron boubacar marie 02-26 (Same as: l 16:26: Reglan) Flumazenil No Notes: Memor ia 02-26 (Same as: l 16:26: Romazicon) Naloxone No Notes: Memoria 02-26 Same as l 16:26: Narcan Fentanyl No Notes: Memoria 02-26 (Same as: l 16:26: Sublimaze) Preservat jose free. Ondansetron No 4 mg, Memor ia 02-26 Route: l 16:26: IVP, ONCE, Dosing Weight 124.091, kg, PRN Nausea & Vomiting, Start date: 02/26/17 11:26:00 CDT Labetalol No Notes: Memori a 02-26 (Same as: l 16:26: Normodyne, Trandate) Push over 2 minutes Give bolus over 2-3 minutes. Hydralazine No Notes: Dayron boubacar 02-26 (Same as: l 16:26: Apresoline ) Push over 5 minutes Acetaminoph Yes 2 tab, PO, Memoria en 300 MG / 02-26 Q4H, PRN l Codeine 15:19: Pain Score Herm doris Phosphate 00 4-6, # 24 30 MG Oral tab, 0 Tablet Refill(s) Zofran No Notes: Memoria 02-26 (Same as: l 15:17: Zofran) MEDICATION WASTE Product Size: 4 mg Product Wasted: ___ mg acetaminoph No Notes: Do M emoria en-codeine 02-26 not exceed l #3 15:17: 4gm/day of acetaminop hen. (Same as: Tylenol with Codeine # 3) Acetaminoph No Notes: Do M emoria en 02-26 not exceed l 15:17: 4 gm/day. (Same as: Tylenol) protamine No Route: IV, moria (ANES) 02-26 Drug form: l 15:10: INJ, ONCE, Colin Stop date: 02/26/17 10:10:00 CDT heparin No Route: IV, Dayron boubacar (ANES) 02-26 Drug form: l 15:06: INJ, ONCE, [place] 00 Stop date: 02/26/17 10:06:00 CDT propofol No Route: IV, Mem oria (ANES) 02-26 Drug form: l 14:41: INJ, ONCE, Colin 00 Stop date: 02/26/17 9:41:00 CDT fentaNYL No Route: IV, Mem oria (ANES) 02-26 Drug form: l 14:31: INJ, ONCE, Stop date: 02/26/17 9:31:00 CDT midazolam No Route: IV, moria (ANES) 02-26 Drug form: l 14:26: SOLN, 00 ONCE, Stop date: 02/26/17 9:26:00 CDT vancomycin No Route: IV, Nelson cruz (ANES) 02-26 Drug form: l (ANES) 14:09: INJ, Start Anel nn 00 date: 02/26/17 9:09:00 CDT, Stop date: 02/26/17 10:09:00 CDT sodium No Route: IV, Memor ia chloride 02-26 Total l 0.9% 500 ml 13:49: Volume: Her martínez INJ (ANES) 00 500, Start date: 02/26/17 8:49:00 CDT, Stop date: 02/26/17 9:49:00 CDT Cefazolin No Notes: Memori a 02-26 Same as: l 12:00: Ancef [place] 00 insulin Yes 15 UNITS, Memor ia detemir 100 02-24 SUB-Q, l UNT/ML 14:25: BID, am [place] Injectable AND pm Solution MEALS [Levemir] Probiotic 2017-0 Yes 1 cap, PO, Me moria Formula 7-05 Daily, l 14:24: PROBIOTIC PEARLS COMPLETE( DIGESTIVE hEALTH) Multiple Yes 1 tab, PO, Mem oria Vitamins 7-05 Daily, l oral tablet 14:22: SPECTRAVIT E ( ULTRA MEN 50 PLUS) Calcium Yes 250 mg, Memoria Carbonate 7-05 PO, BID l 14:21: ferrous Yes 325 mg = 1 Dayron boubacar sulfate 325 7-05 tab, PO, l mg oral 14:20: TID Colin enteric 00 coated tablet calcitriol Yes 0.25 Memoria 0.25 mcg 7-05 microgram l oral 14:18: = 1 cap, [place] capsule 00 PO, Every Other Day rosuvastati Yes 5 mg = 1 Me moria n 5 mg oral 7-05 tab, PO, l tablet 14:17: Daily allopurinol Yes 50 mg, PO, Memoria 100 mg oral 7-05 Daily l tablet 14:16: Hydralazine Yes 50 mg = 1 M emoria Hydrochlori 7-05 tab, PO, l de 50 MG 14:15: TID [place] Oral Tablet 00 carvedilol Yes 6.25 mg = Me moria 6.25 mg 7-05 1 tab, PO, l oral tablet 14:14: BID Michael n gabapentin Yes 200 mg = 2 M emoria 100 MG Oral 7-05 cap, PO, l Capsule 14:12: AFTER DIALYSIS sevelamer Yes 800 mg = 1 Me moria carbonate 7-05 tab, PO, l 800 MG Oral 14:11: TID-Meals H ermann Tablet 00 [Renvela] Sodium Yes 650 mg = 1 Memor ia Bicarbonate 7-05 tab, PO, l 650 MG Oral 14:11: TID Michael n Tablet 00 Furosemide Yes 40 mg = 1 Me moria 40 MG Oral 7-05 tab, PO, l Tablet 14:10: Bedtime Furosemide Yes 80 mg = 2 Me moria 40 MG Oral 7-05 tab, PO, l Tablet 14:07: QAM apixaban 2017-0 Yes 2.5 mg = 1 Mem oria 2.5 MG Oral 7-05 tab, PO, l Tablet 14:04: BID [place] [Eliquis] 00 rosuvastati 2016- Yes 5mg QD Take 5 mg [place] (CRESTOR) 2-23 by mouth Meth ramana 5 MG tablet 00:00: once st 00 daily. carvedilol Yes 12.5mg Q.5D 12.5 mg 2 [place] (COREG) 2-22 (two) Methodi 6.25 MG 00:00: times a st tablet 00 day with meals. calcitriol Yes .25ug Q2D Take 0.25 [place] (ROCALTROL) 2-16 mcg by Method i 0.25 MCG 00:00: mouth st capsule 00 every other day. ELIQUIS 2.5 Yes 2.5mg Q.5D Take 2.5 [place] mg tablet 2-14 mg by Methodi 00:00: mouth 2 st 00 (two) times a day. calcium Yes 1{tbl} Q.5D Take 1 [place] carbonate 2-13 tablet by Metho di oyster 00:00: mouth 2 st shell 00 (two) (OS-AMBERLY) times a 500 mg day. calcium (1,250 mg) tablet R[place]A 800 Yes TAKE 2 [place] mg tablet 1-25 TABLET BY Metho di 00:00: MOUTH WITH st 00 EACH MEAL allopurinol 2015-08 Yes 100mg QD Take 100 [place] (ZYLOPRIM) 2-28 mg by Methodi 100 MG 00:00: mouth once st tablet 00 daily. Vital Signs Vital Name Observation Time Observation Value Comments Source Systolic blood 2020-08-20 08:00:00 131 mm[Hg] [facility] Diastolic blood 2020-08-20 08:00:00 63 mm[Hg] [facility] S t [facility] Heart rate 2020-08-20 08:00:00 67 /min YENNY [facility] Respiratory rate 2020-08-20 08:00:00 22 /min [facility] Oxygen saturation in 2020-08-20 08:00:00 99 /min [facility] - Arterial blood by Medical Ce nter Pulse oximetry Body temperature 2020-08-20 04:00:00 36.67 Katya [facility] Body weight 2020-08-19 10:15:00 91.6 kg [facility] BMI 2020-08-19 10:15:00 28.98 kg/m2 [facility] Body height 2020-08-13 05:57:00 177.8 cm [facility] Systolic (mm Hg) 2017-06-01 20:15:00 Dayron rial [place] Diastolic (mm Hg) 2017-06-01 20:15:00 Mem orial Colin Respitory Rate 2017-06-01 20:15:00 Memori al Colin Systolic (mm Hg) 2017-06-01 20:00:00 Dayron rial Colin Diastolic (mm Hg) 2017-06-01 20:00:00 Mem orial [place] Respitory Rate 2017-06-01 20:00:00 Memori al Colin Systolic (mm Hg) 2017-06-01 19:45:00 Dayron rial Colin Diastolic (mm Hg) 2017-06-01 19:45:00 Mem orial [place] Respitory Rate 2017-06-01 19:45:00 Memori al Colin Temperature Oral (F) 2017-06-01 16:00:00 98.5 F [facility] [place] BMI Calculated 2017-05-31 20:47:00 Memori al [place] Height 2017-05-31 20:47:00 177.8 cm [facility] [place] Weight 2017-05-31 20:47:00 [facility] [place] Systolic (mm Hg) 2017-03-04 22:53:00 Dayron rial Colin Diastolic (mm Hg) 2017-03-04 22:53:00 Mem orial Colin Temperature Oral (F) 2017-03-04 22:53:00 97.9 F [facility] [place] Respitory Rate 2017-03-04 22:53:00 Memori al Colin Heart Rate 2017-03-04 22:53:00 [facility] [place] Respitory Rate 2017-03-04 20:46:00 Memori al [place] Heart Rate 2017-03-04 20:46:00 [facility] [place] Systolic (mm Hg) 2017-03-04 20:46:00 Dayron rial Colin Diastolic (mm Hg) 2017-03-04 20:46:00 Mem orial Colin BMI Calculated 2017-03-04 19:30:00 Memori al [place] Height 2017-03-04 19:30:00 170.18 cm [facility] Colin Weight 2017-03-04 19:30:00 [facility] Respitory Rate 2017-03-04 19:30:00 Memori al [place] Heart Rate 2017-03-04 19:30:00 [facility] [place] Temperature Oral (F) 2017-03-04 19:30:00 99 F [facility] Systolic (mm Hg) 2017-03-04 19:30:00 Dayron rial [place] Diastolic (mm Hg) 2017-03-04 19:30:00 Mem orial Colin Respitory Rate 2017-02-26 17:00:00 Memori al [place] Systolic (mm Hg) 2017-02-26 17:00:00 Dayron rial Colin Diastolic (mm Hg) 2017-02-26 17:00:00 Mem orial [place] Respitory Rate 2017-02-26 16:45:00 Memori al Colin Systolic (mm Hg) 2017-02-26 16:45:00 Dayron rial Colin Diastolic (mm Hg) 2017-02-26 16:45:00 Mem orial Colni Respitory Rate 2017-02-26 16:30:00 Memori al Colin Systolic (mm Hg) 2017-02-26 16:30:00 Dayron rial Colin Diastolic (mm Hg) 2017-02-26 16:30:00 Mem orial Colin Temperature Oral (F) 2017-02-26 11:45:00 97.9 F [facility] [place] Heart Rate 2017-02-24 13:43:00 [facility] Colin Temperature Oral (F) 2017-02-24 13:43:00 99.2 F [facility] [place] Weight 2017-02-24 13:27:00 [facility] BMI Calculated 2017-02-24 13:27:00 Memori al Colin Height 2017-02-24 13:27:00 177.8 cm [facility] [place] Procedures Procedure Date / Time Performing Clinician Source Performed XR CHEST 1 VIEW 2020-08-19 13:11:00 Ibis Haque On license of [facility]/BEDSIDE Medical [place] HEMODIALYSIS INPATIENT 2020-08-19 07:26:45 Lele Dobson [facility] BASIC METABOLIC PANEL (7) 2020-08-19 04:04:00 Charli Alexandra CH, I [facility] CBC (HEMOGRAM ONLY) 2020-08-19 04:04:00 Charli Alexandra [facility] MAGNESIUM 2020-08-19 04:04:[address] [facility] [facility] PHOSPHORUS 2020-08-19 04:04:[address] [facility] BASIC METABOLIC PANEL (7) 2020-08-18 04:54:00 Charli Alexandra CH, I [facility] CBC (HEMOGRAM ONLY) 2020-08-18 04:54:00 Charli Alexandra [facility] MAGNESIUM 2020-08-18 04:54:[address] [facility] PHOSPHORUS 2020-08-18 04:54:[address] [facility] XR CHEST 1 VIEW 2020-08-18 03:30:00 Stewart Arenas [facility] s - PORTABLE/BEDSIDE [facility] PREPARE LEUKO-REDUCED RBC 2020-08-17 23:54:00 Clement Flores CH I [facility] PREPARE LEUKO-REDUCED 2020-08-17 23:54:00 Clement Flores [facility] - PLATELETS [facility] POCT-GLUCOSE METER 2020-08-17 15:46:00 [facility] POCT-GLUCOSE METER 2020-08-17 12:21:00 [facility] XR CHEST 1 VIEW 2020-08-17 09:33:00 [facility] POCT-GLUCOSE METER 2020-08-17 08:23:00 [facility] SARS-COV2/RT-PCR ([facility] & REF 2020-08-17 05:25:00 Yoly Jimenez [facility] BASIC METABOLIC PANEL (7) 2020-08-17 05:19:00 Charli Alexandra CH, I [facility] CBC (HEMOGRAM ONLY) 2020-08-17 05:19:00 Charli Alexandra [facility] MAGNESIUM 2020-08-17 05:19:[address] [facility] PHOSPHORUS 2020-08-17 05:19:[address] [facility] TRANSFUSE LEUKO-REDUCED 2020-08-17 00:16:18 Mark [facility] - PLATELETS [facility] POCT-GLUCOSE METER 2020-08-16 20:39:00 Mark Stewart [facility] HEMODIALYSIS INPATIENT 2020-08-16 18:27:53 Lele Dobson [facility] TRANSFUSE LEUKO-REDUCED RED 2020-08-16 16:59:07 Mark [facility] - BLOOD CELLS [facility] POCT-GLUCOSE METER 2020-08-16 16:56:00 Stewart Arenas [facility] POCT-GLUCOSE METER 2020-08-16 12:22:00 Stewart Arenas [facility] POCT-GLUCOSE METER 2020-08-16 07:21:00 Stewart Arenas [facility] BASIC METABOLIC PANEL (7) 2020-08-16 04:06:00 Charli Alexandra CH, I [facility] CBC (HEMOGRAM ONLY) 2020-08-16 04:06:00 Charli Alexandra [facility] MAGNESIUM 2020-08-16 04:06:[address] [facility] PHOSPHORUS 2020-08-16 04:06:[address] [facility] CALCIUM, IONIZED 2020-08-16 04:06:00 Charli Alexandra [facility] XR CHEST 1 VIEW 2020-08-16 03:21:00 Charli Alexandra [facility] - PORTABLE/BEDSIDE [facility] POCT-GLUCOSE METER 2020-08-15 20:41:00 Stewart Arenas [facility] POCT-GLUCOSE METER 2020-08-15 15:00:00 Mark [facility] XR CHEST 1 VIEW 2020-08-15 14:35:[address] [facility] PORTABLE/BEDSIDE [facility] US THORACENTESIS 2020-08-15 13:25:00 Stewart Arenas [facility] POCT-GLUCOSE METER 2020-08-15 12:15:00 Mark [facility] PT/APTT 2020-08-15 09:33:[address] [facility] POCT-GLUCOSE METER 2020-08-15 07:28:00 Mark [facility] XR CHEST 1 VIEW 2020-08-15 03:53:[address] [facility] PORTABLE/BEDSIDE [facility] ANTI-NUCLEAR ANTIBODY (MISSAEL) 2020-08-15 03:47:[address] [facility] BASIC METABOLIC PANEL (7) 2020-08-15 03:47:00 Charli Alexandra [facility] CBC (HEMOGRAM ONLY) 2020-08-15 03:47:00 Charli Alexandra [facility] MAGNESIUM 2020-08-15 03:47:[address] [facility] PHOSPHORUS 2020-08-15 03:47:[address] [facility] CALCIUM, IONIZED 2020-08-15 03:47:00 Charli Alexandra [facility] MISSAEL TITER AND PATTERN 2020-08-15 03:47:[address] [facility] PREPARE PLASMA 2020-08-14 23:54:00 Mark [facility] PREPARE PLATELETS 2020-08-14 23:54:00 Mark [facility] PREPARE RBC 2020-08-14 23:54:00 Stewart Arenas [facility] OXYGEN SATURATION, MEASURED 2020-08-14 10:38:[address] [facility] US ABDOMEN LIMITED 2020-08-14 10:23:00 [facility] POCT-GLUCOSE METER 2020-08-14 06:05:00 Stewart Arenas [facility] BASIC METABOLIC PANEL (7) 2020-08-14 03:52:00 Charli Alexandra [facility] CBC (HEMOGRAM ONLY) 2020-08-14 03:52:00 Charli Alexandra [facility] MAGNESIUM 2020-08-14 03:52:[address] [facility] PHOSPHORUS 2020-08-14 03:52:[address] LIPID PANEL 2020-08-14 03:52:00 [facility] HEMOGLOBIN A1C 2020-08-14 03:52:00 [facility] HC LAB HIV-1 AG W/HIV-1&2 AB 2020-08-14 03:52:00 [facility] HEPATITIS C ANTIBODY 2020-08-14 03:52:00 [facility] HEPATITIS B PANEL 2020-08-14 03:52:00 [facility] CALCIUM, IONIZED 2020-08-14 03:52:00 IbrahimaCharli [facility] BLOOD GAS, ARTERIAL 2020-08-14 03:52:00 Sera [facility] XR CHEST 1 VIEW 2020-08-14 01:23:00 Charli Alexandra [facility] - PORTABLE/BEDSIDE [facility] POCT-GLUCOSE METER 2020-08-14 00:31:00 Stewart Arenas [facility] LACTIC ACID, ARTERIAL 2020-08-13 19:34:00 Sera [facility] BLOOD GAS, ARTERIAL 2020-08-13 19:34[facility] 2020-08-13 19:34:00 Sera [facility] POTASSIUM-STAT LAB 2020-08-13 19:34:00 Sera [facility] GLUCOSE-STAT LAB 2020-08-13 19:34:00 Sera [facility] HGB/HCT (H&H) - STAT LAB 2020-08-13 19:34:00 Sera [facility] BLOOD GAS, ARTERIAL 2020-08-13 16:17:00 Mark [facility] SODIUM NA-STAT LAB 2020-08-13 16:17:00 Mark [facility] POTASSIUM-STAT LAB 2020-08-13 16:17:00 [facility] 2020-08-13 16:17:00 Mark [facility] HGB/HCT (H&H) - STAT LAB 2020-08-13 16:17:00 Mark Stewart I [facility] XR CHEST 1 VIEW 2020-08-13 15:30:00 Shanda Chapman [facility]/BEDSIDE [facility] CALCIUM, IONIZED 2020-08-13 14:31:00 Shanda Chapman [facility] PT/APTT 2020-08-13 14:30:00 Shanda Chapman [facility] PROTHROMBIN TIME/INR 2020-08-13 14:30:00 Shanda Chapman [facility] OXYGEN SATURATION, MEASURED 2020-08-13 14:30:00 Shanda Chapman [facility] THROMBOELASTOGRAPH (TEG) 2020-08-13 14:30:00 Shanda Chapman [facility] XR CHEST 1 VIEW 2020-08-13 14:00:[address] [facility] PORTABLE/BEDSIDE [facility] MAGNESIUM 2020-08-13 13:44:00 Clement Flores [facility] LACTIC ACID, ARTERIAL 2020-08-13 13:44:00 Lincoln Chapmani Xin [facility] PHOSPHORUS 2020-08-13 13:44:00 Lincoln Chapmani Xin [facility] CBC (HEMOGRAM ONLY) 2020-08-13 13:44:00 Shanda Chapman [facility] OXYGEN SATURATION, MEASURED 2020-08-13 13:44:00 Shanda Chapman [facility] COMPREHENSIVE METABOLIC 2020-08-13 13:44:00 Ari Shanda Xin [facility] BLOOD GAS, ARTERIAL 2020-08-13 13:44:00 Ari Shanda Xin [facility] SODIUM NA-STAT LAB 2020-08-13 13:44:00 Ari Shanda Xin [facility] POTASSIUM-STAT LAB 2020-08-13 13:44:00 Ari Shanda Xin [facility] GLUCOSE-STAT LAB 2020-08-13 13:44:00 Ari Shanda B [facility] HGB/HCT (H&H) - STAT LAB 2020-08-13 13:44:00 Ari Shanda B [facility] LACTATE DEHYDROGENASE (LDH) 2020-08-13 12:30:38 [facility] BILIRUBIN, TOTAL AND DIRECT 2020-08-13 12:30:38 [facility] PROTHROMBIN TIME/INR 2020-08-13 12:27:17 [facility] APTT 2020-08-13 12:27:17 [facility] FIBRINOGEN 2020-08-13 12:27:17 [facility] THROMBOELASTOGRAPH (TEG) 2020-08-13 12:27:17 [facility] PLATELET COUNT 2020-08-13 12:27:17 [facility] HAPTOGLOBIN 2020-08-13 12:27:17 [facility] BLOOD GAS, ARTERIAL 2020-08-13 12:27:17 [facility] SODIUM NA-STAT LAB 2020-08-13 12:27:17 [facility] POTASSIUM-STAT LAB 2020-08-13 12:27:17 BillHenry [facility] GLUCOSE-STAT LAB 2020-08-13 12:27:17 [facility] - [facility] 2020-08-13 12:27:17 [facility] RETICULOCYTE COUNT 2020-08-13 12:27:00 BillHenry [facility] HEPATITIS B SURFACE ANTIGEN 2020-08-13 12:27:00 Lele Dobson [facility] TRANSFUSE LEUKO-REDUCED RED 2020-08-13 12:08:31 [facility] TRANSFUSE LEUKO-REDUCED RED 2020-08-13 12:04:42 [facility] CALCIUM, IONIZED 2020-08-13 11:41:41 [facility] PROTHROMBIN TIME/INR 2020-08-13 11:41:41 [facility] APTT 2020-08-13 11:41:41 [facility] FIBRINOGEN 2020-08-13 11:41:41 [facility] PLATELET COUNT 2020-08-13 11:41:41 [facility] BLOOD GAS, ARTERIAL 2020-08-13 11:41:41 [facility] SODIUM NA-STAT LAB 2020-08-13 11:41:41 [facility] POTASSIUM-STAT LAB 2020-08-13 11:41:41 [facility] GLUCOSE-STAT LAB 2020-08-13 11:41:41 [facility] HGB/HCT (H&H) - STAT LAB 2020-08-13 11:41:41 [facility] RETICULOCYTE COUNT 2020-08-13 11:41:00 [facility] CBC W/PLT COUNT & AUTO 2020-08-13 11:41:[address] [facility] - DIFFERENTIAL [facility] TRANSFUSE LEUKO-REDUCED RED 2020-08-13 11:26:33 [facility]ED 2020-08-13 [facility] TRANSFUSE PLASMA 2020-08-13 11:19:41 [facility] 2020-08-13 11:19:40 [facility] LEUKO-REDUCED 2020-08-13 11:18:31 [facility] TRANSFUSE LEUKO-REDUCED RED 2020-08-13 11:05:28 [facility] LEUKO-REDUCED RED 2020-08-13 11:04:50 [facility] POCT-ACT 2020-08-13 10:58:00 Mark [facility] PROTHROMBIN TIME/INR 2020-08-13 10:51:02 [facility] APTT 2020-08-13 10:51:02 [facility] FIBRINOGEN 2020-08-13 10:51:02 [facility] THROMBOELASTOGRAPH (TEG) 2020-08-13 10:51:02 [facility] PLATELET COUNT 2020-08-13 10:51:02 [facility] BLOOD GAS, ARTERIAL 2020-08-13 10:51:02 [facility] SODIUM NA-STAT LAB 2020-08-13 10:51:02 [facility] POTASSIUM-STAT LAB 2020-08-13 10:51:02 [facility] GLUCOSE-STAT LAB 2020-08-13 10:51:02 [facility] HGB/HCT (H&H) - STAT LAB 2020-08-13 10:51:02 [facility] TRANSFUSE LEUKO-REDUCED 2020-08-13 10:45:15 [facility] TRANSFUSE LEUKO-REDUCED 2020-08-13 10:41:21 [facility]-REDUCED 2020-08-13 10:39:52 [facility] POCT-ACT 2020-08-13 10:28:00 Mark [facility] CALCIUM, IONIZED 2020-08-13 10:15:25 [facility] PROT[facility] TIME/INR 2020-08-13 10:15:25 [facility] APTT 2020-08-13 10:15:25 [facility] FIBRINOGEN 2020-08-13 10:15:25 [facility] PLATELET COUNT 2020-08-13 10:15:25 [facility] BLOOD GAS, ARTERIAL 2020-08-13 10:15:25 [facility] SODIUM NA-STAT LAB 2020-08-13 10:15:25 Bill, [facility] POTASSIUM-STAT LAB 2020-08-13 10:15:25 [facility] GLUCOSE-STAT LAB 2020-08-13 10:15:25 [facility] HGB/HCT (H&H) - STAT LAB 2020-08-13 10:15:25 [facility] PERIPHERAL BLOOD SMEAR - 2020-08-13 10:15:00 Tyrone Sol [facility] POCT-ACT 2020-08-13 09:49:00 Mark [facility] BLOOD GAS, ARTERIAL 2020-08-13 09:46:29 Mark [facility] SODIUM NA-STAT LAB 2020-08-13 09:46:29 Mark, Stewart [facility] POTASSIUM-STAT LAB 2020-08-13 09:46:29 Mark [facility] GLUCOSE-STAT LAB 2020-08-13 09:46:29 Mark [facility] HGB/HCT (H&H) - STAT LAB 2020-08-13 09:46:29 Stewart Arenas [facility] TRANSFUSE LEUKO-REDUCED RED 2020-08-13 09:34:12 [facility] POCT-ACT 2020-08-13 09:26:00 Mark [facility] BLOOD GAS, ARTERIAL 2020-08-13 09:20:37 Mark [facility] SODIUM NA-STAT LAB 2020-08-13 09:20:37 Mark [facility] POTASSIUM-STAT LAB 2020-08-13 09:20:37 Mark [facility] GLUCOSE-STAT LAB 2020-08-13 09:20:37 Mark [facility] HGB/HCT (H&H) - STAT LAB 2020-08-13 09:20:37 Stewart Arenas [facility] POCT-ACT 2020-08-13 08:59:00 [facility] ANEST[facility]ESIA DASIA 2020-08-13 08:21:33 [facility] 2020-08-13 08:14:00 Lisa Rowe [facility] POCT-ACT 2020-08-13 08:11:00 [facility] CALCI[facility], IONIZED 2020-08-13 07:51:14 [facility] BLOOD GAS, ARTERIAL 2020-08-13 07:51:14 [facility] 2020-08-13 07:51:14 [facility] POTASSIUM-STAT LAB 2020-08-13 07:51:14 [facility]Henry [facility] GLUCOSE-STAT LAB 2020-08-13 07:51:14 [facility]&H) - STAT LAB 2020-08-13 07:51:14 Bill [facility] BYPASS,AORTO CORONARY 2020-08-13 07:07:00 Stewart Arenas [facility] - HENRY/SVG [facility] ENDOSCOPIC HARVEST,VEIN 2020-08-13 07:07:00 Mark [facility] DASIA,3D 2020-08-13 07:07:00 Mark [facility] XR CHEST 1 VIEW 2020-08-13 06:41:00 Stewart Arenas On license of [facility]/BEDSIDE [facility] MAGNESIUM 2020-08-13 06:28:00 Mark [facility] COMPREHENSIVE METABOLIC 2020-08-13 06:28:00 Mark [facility] HEMOGLOBIN A1C 2020-08-13 06:28:00 Mark [facility] LIPID PANEL 2020-08-13 06:28:00 Mark [facility] PROTHROMBIN TIME/INR 2020-08-13 06:28:00 Mark [facility] APTT 2020-08-13 06:28:00 Mark [facility] PHOSPHORUS 2020-08-13 06:28:00 Clement Flores [facility] BILIRUBIN, TOTAL AND DIRECT 2020-08-13 06:28:00 [facility] LACTATE DEHYDROGENASE (LDH) 2020-08-13 06:28:00 [facility] MANUAL 2020-08-13 06:28:00 Mark [facility] CBC W/PLT COUNT & AUTO 2020-08-13 06:28:00 Mark [facility] DIFFERENTIAL [facility] POCT-GLUCOSE METER 2020-08-13 06:01:00 [facility]renas [facility] SARS-COV2/RT-PCR ([facility] & REF 2020-08-08 11:42:[address] [facility] - LABS) [facility] Central line 2016-08-23 00:00:00 Noemi martínez insertion<sup>1</sup> AV - Creation of 2015-08-23 00:00:00 Noemi szymanskiann arteriovenous fistula Procedure<sup>2, 3</sup> Lukasz Shaw Plan of Care Planned Activity Planned Date Details Comments Source Future Scheduled 2023-08-[address] [facility] Test 00:00:00 (procedure) [code = [facility] 34625489] Future Scheduled 2020-08-[address] [facility] - Test 00:00:00 (12+) [code = [facility] DEPRESSION SCREENING (12+)] Future Scheduled 2020 65+ PNEUMOCOCCAL [facility] 00:00:00 VACCINE (1 of 1 - PPSV23) [code = 65+ PNEUMOCOCCAL VACCINE (1 of 1 - PPSV23)] Future Scheduled 2020 PNEUMOCOCCAL 65+ YRS [facility] - Test 00:00:00 (1 of 1 - [facility] [id number] PCV13) [code = PNEUMOCOCCAL 65+ YRS (1 of 1 - [id number] PCV13)] Future Scheduled 2020-05-23 Medicare IPPE (WELCOME [facility] Test 00:00:00 TO MEDICARE) [code = [facility] Medicare IPPE (WELCOME TO MEDICARE)] Future Scheduled 2020-04-23 INFLUENZA VACCINE (#1) [facility] Test 00:00:00 [code = INFLUENZA Medical Ce nter VACCINE (#1)] Future Scheduled 2020-03-23 INFLUENZA VACCINE [place] [facility] 00:00:00 [code = INFLUENZA VACCINE] Future Scheduled 2005 COLONOSCOPY SCREENING [place] [facility] 00:00:00 [code = COLONOSCOPY SCREENING] Future Scheduled 2005 SHINGLES VACCINES (#1) [place] [facility] 00:00:00 [code = SHINGLES VACCINES (#1)] Future Scheduled 1974 HEPATITIS B VACCINE ([address] [facility] - Test 00:00:00 of 3 - Risk Recombivax Medic [facility] 3-dose series) [code = HEPATITIS B VACCINE (1 of 3 - Risk Recombivax 3-dose series)] Future Scheduled 1971 COVID-19 VACCINE (#1) [place] [facility] 00:00:00 [code = COVID-19 VACCINE (#1)] Future Scheduled 1965 DIABETES: RETINAL EYE [place] [facility] 00:00:00 EXAM [code = DIABETES: RETINAL EYE EXAM] Future Scheduled 1965 DIABETIC FOOT EXAM [place] [facility] Test 00:00:00 [code = DIABETIC FOOT EXAM] Future Scheduled [address] - Test 00:00:00 malignant neoplasm of [facility] colon (procedure) [code = 196730614] Encounters Start End Encounter Admission Attending Care Care Encounter Source Date/Time Date/Time Type Type Clinicians Facility Department ID 2017-06-01 2017-06-01 Outpatient [facility] [id number] 10:06:00 15:45:00 Elder Hyatt 2017-03-04 2017-03-04 Outpatient Agustin Khan [facility] [id number] 14:12:00 18:25:00 02 2017-02-26 2017-02-26 Outpatient [facility] [id number] 06:00:00 12:27:00 Elder Hyatt 2017-02-24 2017-02-24 Outpatient Reynolds, [id number] 10:49:00 23:59:00 Elder Hyatt [id number] Results Test Description Test Time Test Comments Results Result Sour e Comments RAD, CHEST, 1 2020-07-24 Reason for VIEW, NON DEPT 8 exam:->Post CT 13:19:00 removalShould this be performed at [facility] - the bedside?->Yes MEDICAL CENTERName: SIMONE WALLER : 1955 Sex: M FINAL REPORT RAD, CHEST, 1 VIEW, NON DEPT INDICATION: Post CT removal COMPARISON: Prior day's exam FINDINGS: Portable frontal view of the chest. IMPRESSION: Limited by underpenetration.Jones pport Lines: Thoracostomy tube on the left has been removed. Lungs and pleura: Lungs remain hypoinflated. Small left effusion. Trace residual left pneumothorax. No pneumothorax.Heart and mediastinum: Stable contours. Stable surgical changes.Additional findings: None. Signed: JR Culver Robert MDReport Verified Date/Time: 08/19/2020 13:19:30 Reading Location: [facility] Radiology Reading Room chest 1 view 2020-07-24 Interface, External [facility] / 8 Ris In - 08/19/2020 [facility] - [facility] 13:19:00 1:21 PM CSTFINAL Medical REPORT PATIENT ID: Center [id number] RAD, CHEST, 1 VIEW, NON DEPT INDICATION: Post CT removal COMPARISON: Prior day's exam FINDINGS: Portable frontal view of the chest. IMPRESSION: Limited by underpenetration.Jones pport Lines: Thoracostomy tube on the left has been removed. Lungs and pleura: Lungs remain hypoinflated. Small left effusion. Trace residual left pneumothorax. No pneumothorax.Heart and mediastinum: Stable contours. Stable surgical changes.Additional findings: None. Signed: JR Culver Robert MDReport Verified Date/Time: 08/19/2020 13:19:30 Reading Location: [facility] Radiology Reading Room Basic Metabolic Panel 2020-08-19 05:05:00 Test Item Value Reference Range Interpretation Comme nts Sodium (test code = 138 meq/L 163-664 8927-2) Potassium (test code = 3.9 meq/L 3.5-5.1 2823-3) Chloride (test code = 105 meq/L 98-107 2075-0) CO2 (test code = 8-9) 22 meq/L 22-29 BUN (test code = 3094-0) 49 mg/dL 7-21 H Creatinine (test code = 6.96 mg/dL 0.57-1.25 H 2160-0) Glucose (test code = 84 mg/dL 70-105 2345-7) Calcium (test code = 8.4 mg/dL 8.4-10.2 20743-8) EGFR (test code = 44721-9) 8 mL/min/1.73 sq m ESTIMATED GFR IS NOT ACCURATE CREATININE LOUIS ROSANNE IN PREDICTING GLOMERULAR FILT RATION RATE. ESTIMATED GFR IS NOT APPLICAB LE FOR DIALYSIS PATIEN TS. YARI (test code = YARI) Steward/Stewardess Smoke Room ID - EDASI Lab Interpretation (test Abnormal code = 09541-8) [facility] METABOLIC [id number] 05:05:00 Test Item Value Reference Range Interpretation Comments SODIUM (BEAKER) 138 meq/L 136-145 (test code = 381) POTASSIUM (BEAKER) 3.9 meq/L 3.5-5.1 (test code = 379) CHLORIDE (BEAKER) 105 meq/L 98-107 (test code = 382) CO2 (BEAKER) (test 22 meq/L 22-29 code = 355) BLOOD UREA NITROGEN 49 mg/dL 7-21 H (BEAKER) (test code = 354) CREATININE (BEAKER) 6.96 mg/dL 0.57-1.25 H (test code = 358) GLUCOSE RANDOM 84 mg/dL 70-105 (BEAKER) (test code = 652) CALCIUM (BEAKER) 8.4 mg/dL 8.4-10.2 (test code = 697) EGFR (BEAKER) (test 8 mL/min/1.73 ESTIMAT ED GFR IS code = 1092) sq m NOT ACCURATE CREATININE CLEARANCE IN PREDICTING GLOMERULAR FILTRATION RATE . ESTIMATED GFR I S NOT APPLICABLE FOR DIALYSIS PATIEN TS. Steward/Stewardess Smoke Room ID - [id number] 04:58:00 Test Item Value Reference Range Interpretation Comments Magnesium (test code = 2.1 mg/dL 1.6-2.6 42061-0) YARI (test code = YARI) Ste[facility]/Stewardess Sm[facility] Room ID - EDASI Lab Interpretation (test Normal code = 30268-4) [facility] 04:58:00 Test Item Value Reference Range Interpretation Comments Phosphorus (test code = 4.0 mg/dL 2.3-4.7 2777-1) YARI (test code = YARI) [facility] Room ID - EDASI Lab Interpretation (test Normal code = 46448-4) [facility]2020-12-28 04:58:00 Test Item Value Reference Range Interpretation Comments MAGNESIUM (BEAKER) (test code = 2.1 mg/dL 1.6-2.6 627) [facility] ID - [id number] 04:58:00 Test Item Value Reference Range Interpretation Comments PHOSPHORUS (BEAKER) (test code = 4.0 mg/dL 2.3-4.7 604) [facility] Sm[facility] ID - [id number] (Hemogram only)2020-08-19 04:37:00 Test Item Value Reference Range Interpretation Comments WBC (test code = 6690-2) 7.5 3.5- 10.5 K/L RBC (test code = 789-8) 3.01 4.63- 6.08 M/L L MCHC (test code = 786-4) 31.5 32.3- 36.5 GM/DL L Hematocrit (test code = 4544-3) 27.9 % 40.1-51 L MCV (test code = 787-2) 92.7 fL 79-92.2 H MCH (test code = 785-6) 29.2 pg 25.7-32.2 RDW (test code = 788-0) 16.0 % 11.6-14.4 H Platelets (test code = 777-3) 83 150- 450 K/CU MM L MPV (test code = 62133-9) 11.5 fL 9.4-12.4 nRBC (test code = 413) 0 0- 0 /100 WBC Lab Interpretation (test code = Abnormal 46080-3) [facility]2020-08-19 04:37:00 Test Item Value Reference Range Interpretation Comments WHITE BLOOD CELL COUNT (BEAKER) 7.5 K/ L 3.5-10.5 (test code = 775) RED BLOOD CELL COUNT (BEAKER) 3.01 M/ L 4.63-6.08 L (test code = 761) HEMOGLOBIN (BEAKER) (test code = 8.8 GM/DL 13.7-17.5 L 410) HEMATOCRIT (BEAKER) (test code = 27.9 % 40.1-51.0 L 411) MEAN CORPUSCULAR VOLUME (BEAKER) 92.7 fL 79.0-92.2 H (test code = 753) MEAN CORPUSCULAR HEMOGLOBIN 29.2 pg 25.7-32.2 (BEAKER) (test code = 751) MEAN CORPUSCULAR HEMOGLOBIN CONC 31.5 GM/DL 32.3-36.5 L (BEAKER) (test code = 752) RED CELL DISTRIBUTION WIDTH 16.0 % 11.6-14.4 H (BEAKER) (test code = 412) PLATELET COUNT (BEAKER) (test code 83 K/CU MM 150-450 L = 756) MEAN PLATELET VOLUME (BEAKER) 11.5 fL 9.4-12.4 (test code = 754) NUCLEATED RED BLOOD CELLS (BEAKER) 0 /100 WBC 0-0 (test code = 413) RAD, CHEST, 1 VIEW, NON [id number] 07:15:00Reason for exam:->chest tube [facility] 1955 Sex: MFINAL REPORT Chest one view. Clinical history: chest tube Comparison: 08/17/2020 Discussion: A frontal chest is provided. Cardiomediastinal contours are unchanged. A left chest tube is in stable position. Unchanged interstitial edema and patchy bibasilar opacities. There is a tiny left apical pneumothorax without interval change. There are small bilateral pleural effusions. Signed: Doris Dos Santos MDReport Verified Date/Time: 08/18/2020 07:15:41 Reading Location: [facility] C013X Ortho Consult Reading Room BASIC METABOLIC [id number] 06:04:00 Test Item Value Reference Range Interpretation Comments SODIUM (BEAKER) 139 meq/L 136-145 (test code = 381) POTASSIUM (BEAKER) 3.7 meq/L 3.5-5.1 (test code = 379) CHLORIDE (BEAKER) 104 meq/L 98-107 (test code = 382) CO2 (BEAKER) (test 25 meq/L 22-29 code = 355) BLOOD UREA NITROGEN 36 mg/dL 7-21 H (BEAKER) (test code = 354) CREATININE (BEAKER) 5.82 mg/dL 0.57-1.25 H (test code = 358) GLUCOSE RANDOM 89 mg/dL 70-105 (BEAKER) (test code = 652) CALCIUM (BEAKER) 8.5 mg/dL 8.4-10.2 (test code = 697) EGFR (BEAKER) (test 10 mL/min/1.73 ESTIMA ZOYA GFR IS code = 1092) sq m NOT ACCURATE CREATININE CLEARANCE IN PREDICTING GLOMERULAR FILTRATION RATE . ESTIMATED GFR I S NOT APPLICABLE FOR DIALYSIS PATIEN TS. Steward/Stewardess Smoke Room ID - [id number] 05:57:00 Test Item Value Reference Range Interpretation Comments MAGNESIUM (BEAKER) (test code = 2.1 mg/dL 1.6-2.6 627) Steward/Stewardess Smoke Room ID - [id number] 05:57:00 Test Item Value Reference Range Interpretation Comments PHOSPHORUS (BEAKER) (test code = 3.4 mg/dL 2.3-4.7 604) Steward/Stewardess Smoke Room ID - EDASICBC (HEMOGRAM ONLY)2020-08-18 05:24:00 Test Item Value Reference Range Interpretation Comments WHITE BLOOD CELL COUNT (BEAKER) 7.0 K/ L 3.5-10.5 (test code = 775) RED BLOOD CELL COUNT (BEAKER) 2.99 M/ L 4.63-6.08 L (test code = 761) HEMOGLOBIN (BEAKER) (test code = 8.7 GM/DL 13.7-17.5 L 410) HEMATOCRIT (BEAKER) (test code = 27.6 % 40.1-51.0 L 411) MEAN CORPUSCULAR VOLUME (BEAKER) 92.3 fL 79.0-92.2 H (test code = 753) MEAN CORPUSCULAR HEMOGLOBIN 29.1 pg 25.7-32.2 (BEAKER) (test code = 751) MEAN CORPUSCULAR HEMOGLOBIN CONC 31.5 GM/DL 32.3-36.5 L (BEAKER) (test code = 752) RED CELL DISTRIBUTION WIDTH 16.1 % 11.6-14.4 H (BEAKER) (test code = 412) PLATELET COUNT (BEAKER) (test code 66 K/CU MM 150-450 L = 756) MEAN PLATELET VOLUME (BEAKER) 11.5 fL 9.4-12.4 (test code = 754) NUCLEATED RED BLOOD CELLS (BEAKER) 0 /100 WBC 0-0 (test code = 413) Prepare Leuko-Red [id number] 23:54:00 Test Item Value Reference Range Interpretation Comments CROSSMATCH (test code = 2264) COMPATIBLE Unit ABO (test code = O Pos 1589649) UNIT NUMBER (test code = [id number] 934-0) Status (test code = 0372965) TX_TIMEINCHART Blood Bank Product (test code RED BLOOD CELLS = 2263) PRODUCT CODE (test code = Z6671G89 933-2) [facility]Red [id number] 23:54:00 Test Item Value Reference Range Interpretation Comments Unit ABO (test code = 1940292) O Neg UNIT NUMBER (test code = [id number] 934-0) Status (test code = 2622845) TX_TIMEINCHART Blood Bank Product (test code PLATELETS = 2263) PRODUCT CODE (test code = K7537K30 933-2) [facility] CenterPOC-Glucose [id number] 18:47:00 Test Item Value Reference Range Interpretation Comments POC-Glucose Meter (test 178 mg/dL 70-110 H : TE STED AT [facility] code = 1538) [address] [place], [address]: Steward/Stewardess Smoke Room/Techni radha ID = [id number] for Lexus Bynum Lab Interpretation (test Abnormal code = 12425-1) [facility] CenterPOCT-GLUCOSE [id number] 18:47:00 Test Item Value Reference Range Interpretation Comments POC-GLUCOSE METER 178 mg/dL 70-110 H : TESTED A T [facility] 6720 (BEAKER) (test code = GABRIEL Nunez [facility], 1538) [address]: Steward/Stewardess Smoke Room/Techni radha ID = [id number] for Lexus Oleary POCT-GLUCOSE [id number] 12:32:00 Test Item Value Reference Range Interpretation Comments POC-GLUCOSE METER 87 mg/dL 70-110 : TESTED A T [facility] 6720 (BEAKER) (test code = [facility] Enrique [facility], 1538) [address]: Steward/Stewardess Smoke Room/Techni radha ID = [id number] for JUDAH N, TANNER SARS-CoV2/RT-PCR (Asymptomatic ONLY)2020-08-17 10:34:00 Test Item Value Reference Range Interpretation Comments SARS-COV2/RT-PCR Negative Not Detected, (test code = Negative, See 92422-1) external report for linked test SARS-COV-2 [facility] RAJAT PERFORMING LAB (test code = 40834-9) YARI (test code = Negative result for this YARI) test determines that SARS-CoV-2 RNA was not present in the [...] of the Act. Fact Sheet for Healthcare Providers:https://www.[employer]/sites/default/f jose/product/documents/F act_Sheet_HC_Providers_L cux_KYAA-CbH-0.pdf Fact Sheet for Healthcare Patients:https://www.Orange[employer]M/sites/default/fi les/product/documents/Fa ct_Sheet_Patients_Lyra_S ARS-CoV-2.pdf Performing Laboratory:[facility] [facility] [place] [address] [facility] ([facility])2020-08-17 10:34:00 Test Item Value Reference Range Interpretation Comments SARS-COV2/RT-PCR (test Negative Not Detected, Negative, code = 0436684) See external report for linked test SARS-COV-2 PERFORMING LAB [facility] RAJAT (test code = 2183306) Negative result for this test determines that SARS-CoV-2 RNA was not present in the specimen above the Limit of Detection (LOD). However, Negative results do not preclude SARS-CoV-2 infection and should not be used as the sole basis for treatment or patient management decisions. Negative results mustbe combined with clinical observations, patient history, and epidemiological information. A false negative result may occur if a specimen is improperly collected, transported or handled. A false negative result should be considered if patient's recent exposures or clinical presentation indicate that COVID-19 (SARS-CoV-2) is likely and diagnostic tests for other causes of illness are negative. Re-testing should be considered in cases of suspected false negatives.The limit of detection for this assay is 800 copies/mL.This SARS CoV-2 test is a real-time RT-PCR test intended for the qualitative detection of nucleic acid from SARS-CoV-2 in a nasopharyngeal swab specimen collected from individuals susp ected of COVID-19 by their healthcare provider.This test has not been Food and Drug [...] is revoked under Section 564(g) of the Act.Fact Sheet for Healthcare Providers:https://www.[employer]/sites/default/files/product/documents/Fact_Shee e_EQ_Ubbphfmer_Dvaj_VKER-FhB-0.pdfFact Sheet for Healthcare Patients:https://www.[employer]/sites/default/files/product/ documents/Wxvr_Uiryn_Evmtllwm_Evku_QKQA-UrP-5.pdfPerforming Laboratory:[facility], [place] [address], CHEST, 1 VIEW, NON [id number] 09:48:00Reason for exam:->exam for possible CT removal [facility] : 1955 Sex: MFINAL REPORT TECHNIQUE: Frontal view of the chest. INDICATION: exam forpossible CT removal COMPARISON: 08/16/2012. FINDINGS: LINES/TUBES: There is a left basilar chest tube.. LUNGS: Bilateral pleural and parenchymal opacities are not significantly changed. Unchanged trace left-sided pneumothorax. HEART AND MEDIASTINUM: The cardiomediastinal silhouette is enlarged. Post surgical changes from median sternotomy.. SOFT TISSUES AND BONES: Unremarkable. IMPRESSION:No interval change. Persistent trace left apical pneumothorax.. Signed: Cindy Kevin MDReport Verified Date/Time: 08/17/2020 09:48:57 Reading Location: [address] Body Reading Room POCT-GLUCOSE [id number] 08:35:00 Test Item Value Reference Range Interpretation Comments POC-GLUCOSE METER 83 mg/dL 70-110 : TESTED A T [facility] 6720 (BEAKER) (test code = GABRIEL Nunez [facility], 1538) [address]: Steward/Stewardess Smoke Room/Techni radha ID = [id number] for Lexus Rodriguez BASIC METABOLIC [id number] 06:34:00 Test Item Value Reference Range Interpretation Comments SODIUM (BEAKER) 138 meq/L 136-145 (test code = 381) POTASSIUM (BEAKER) 3.5 meq/L 3.5-5.1 (test code = 379) CHLORIDE (BEAKER) 102 meq/L 98-107 (test code = 382) CO2 (BEAKER) (test 26 meq/L 22-29 code = 355) BLOOD UREA NITROGEN 25 mg/dL 7-21 H (BEAKER) (test code = 354) CREATININE (BEAKER) 4.36 mg/dL 0.57-1.25 H (test code = 358) GLUCOSE RANDOM 82 mg/dL 70-105 (BEAKER) (test code = 652) CALCIUM (BEAKER) 8.5 mg/dL 8.4-10.2 (test code = 697) EGFR (BEAKER) (test 14 mL/min/1.73 ESTIMA ZOYA GFR IS code = 1092) sq m NOT ACCURATE CREATININE CLEARANCE IN PREDICTING GLOMERULAR FILTRATION RATE . ESTIMATED GFR I S NOT APPLICABLE FOR DIALYSIS PATIEN TS. Steward/Stewardess Smoke Room ID - [id number] 06:33:00 Test Item Value Reference Range Interpretation Comments MAGNESIUM (BEAKER) (test code = 1.9 mg/dL 1.6-2.6 627) Steward/Stewardess Smoke Room ID - [id number] 06:33:00 Test Item Value Reference Range Interpretation Comments PHOSPHORUS (BEAKER) (test code = 2.9 mg/dL 2.3-4.7 604) Steward/Stewardess Smoke Room ID - EDASICBC (HEMOGRAM ONLY)2020-08-17 06:05:00 Test Item Value Reference Range Interpretation Comments WHITE BLOOD CELL COUNT (BEAKER) 6.9 K/ L 3.5-10.5 (test code = 775) RED BLOOD CELL COUNT (BEAKER) 2.77 M/ L 4.63-6.08 L (test code = 761) HEMOGLOBIN (BEAKER) (test code = 8.2 GM/DL 13.7-17.5 L 410) HEMATOCRIT (BEAKER) (test code = 25.7 % 40.1-51.0 L 411) MEAN CORPUSCULAR VOLUME (BEAKER) 92.8 fL 79.0-92.2 H (test code = 753) MEAN CORPUSCULAR HEMOGLOBIN 29.6 pg 25.7-32.2 (BEAKER) (test code = 751) MEAN CORPUSCULAR HEMOGLOBIN CONC 31.9 GM/DL 32.3-36.5 L (BEAKER) (test code = 752) RED CELL DISTRIBUTION WIDTH 16.4 % 11.6-14.4 H (BEAKER) (test code = 412) PLATELET COUNT (BEAKER) (test code 68 K/CU MM 150-450 L = 756) MEAN PLATELET VOLUME (BEAKER) 11.9 fL 9.4-12.4 (test code = 754) NUCLEATED RED BLOOD CELLS (BEAKER) 0 /100 WBC 0-0 (test code = 413) POCT-GLUCOSE [id number] 21:02:00 Test Item Value Reference Range Interpretation Comments POC-GLUCOSE METER 206 mg/dL 70-110 H : TESTED A T [facility] 6720 (BEAKER) (test code = GABRIEL BORJA [place], 1538) [address]: Steward/Stewardess Smoke Room/Techni radha ID = [id number] for KIMMIE FONTENOT HEMODIALYSIS [id number] 18:27:53Ramon Carrillo, MARY 08/16/2020 6:30 PM - S/P Hemodialysis x 4 hours - Removed 3L as tolerated. -AVF + B/T, no s/sx of infection noted. No edema/petechiae on site. Bleeding stopped on both arterialand venous access, applied new gauze and taped securely. - 1unit PRBC transfused and completed. No suspected reactions noted. - Consent verified prior to initiation of treatment. - Report given to MARY Bacon. Patient stable post HD Lab Results Component Value Date WBC 8.7 08/16/2020 HGB 7.3 (L) 08/16/2020 HCT 22.7 (L) 08/16/2020 MCV 92.3 (H) 08/16/2020 PLT 49 (L) 08/16/2020 Lab Results Component Value Date GLUCOSE 89 08/16/2020 CALCIUM 8.7 08/16/2020 NA 140 08/16/2020 K 3.7 08/16/2020 CO226 08/16/2020 CL 103 08/16/2020 BUN 36 (H) 08/16/2020 CREATININE 6.05 (H) 08/16/2020 'Ramon BENITEZ, RN II7S6- Adult [id number] 6760[facility]PO[facility] METER 2020-08-16 17:09:00 Test Item Value Reference Range Interpretation Comments POC-GLUCOSE METER 96 mg/dL 70-110 : TESTED A T [facility] 6720 ([email or web address]) (test code = [facility] [employer] [facility], 153) [address]: Steward/Stewardess Smoke Room/Techni radha ID = [id number] for Ramon Mena POCT-GLUCOSE [id number] 12:35:00 Test Item Value Reference Range Interpretation Comments POC-GLUCOSE METER 107 mg/dL 70-110 : TESTED A T [facility] 6720 ([email or web address]) (test code = [employer] [facility], 153) [address]: Steward/Stewardess Smoke Room/Techni radha ID = [id number] for JONATHAN AARON POCT-GLUCOSE [id number] 08:06:00 Test Item Value Reference Range Interpretation Comments POC-GLUCOSE METER 81 mg/dL 70-110 : TESTED A T [facility] 6720 (BEAKER) (test code = [facility] [employer] [facility], 1538) [address]: Steward/Stewardess Smoke Room/Techni radha ID = [id number] for ORPH JONATHAN CHATMAN BASIC METABOLIC [id number] 04:53:00 Test Item Value Reference Range Interpretation Comments SODIUM (BEAKER) 140 meq/L 136-145 (test code = 381) POTASSIUM (BEAKER) 3.7 meq/L 3.5-5.1 (test code = 379) CHLORIDE (BEAKER) 103 meq/L 98-107 (test code = 382) CO2 (BEAKER) (test 26 meq/L 22-29 code = 355) BLOOD UREA NITROGEN 36 mg/dL 7-21 H (BEAKER) (test code = 354) CREATININE (BEAKER) 6.05 mg/dL 0.57-1.25 H (test code = 358) GLUCOSE RANDOM 89 mg/dL 70-105 (BEAKER) (test code = 652) CALCIUM (BEAKER) 8.7 mg/dL 8.4-10.2 (test code = 697) EGFR (BEAKER) (test 9 mL/min/1.73 ESTIMAT ED GFR IS code = 1092) sq m NOT ACCURATE CREATININE CLEARANCE IN PREDICTING GLOMERULAR FILTRATION RATE . ESTIMATED GFR I S NOT APPLICABLE FOR DIALYSIS PATIEN TS. Steward/Stewardess Smoke Room ID - [id number] 04:48:00 Test Item Value Reference Range Interpretation Comments MAGNESIUM (BEAKER) (test code = 2.0 mg/dL 1.6-2.6 627) Steward/Stewardess Smoke Room ID - [id number] 04:48:00 Test Item Value Reference Range Interpretation Comments PHOSPHORUS (BEAKER) (test code = 3.3 mg/dL 2.3-4.7 604) Steward/Stewardess Smoke Room ID - EDASICalcium, [id number] 04:25:00 Test Item Value Reference Range Interpretation Comments Calcium, Ion (test code = 1993-) 1.12 mmol/L 1.12-1.27 pH, Blood (test code = 04671-8) 7.42 [facility] CenterCALCIUM, [id number] 04:25:00 Test Item Value Reference Range Interpretation Comments CALCIUM IONIZED (BEAKER) (test 1.12 mmol/L 1.12-1.27 code = 698) PH, BLOOD (BEAKER) (test code = 7.42 1810) CBC (HEMOGRAM ONLY)2020-08-16 04:22:00 Test Item Value Reference Range Interpretation Comments WHITE BLOOD CELL COUNT (BEAKER) 8.7 K/ L 3.5-10.5 (test code = 775) RED BLOOD CELL COUNT (BEAKER) 2.46 M/ L 4.63-6.08 L (test code = 761) HEMOGLOBIN (BEAKER) (test code = 7.3 GM/DL 13.7-17.5 L 410) HEMATOCRIT (BEAKER) (test code = 22.7 % 40.1-51.0 L 411) MEAN CORPUSCULAR VOLUME (BEAKER) 92.3 fL 79.0-92.2 H (test code = 753) MEAN CORPUSCULAR HEMOGLOBIN 29.7 pg 25.7-32.2 (BEAKER) (test code = 751) MEAN CORPUSCULAR HEMOGLOBIN CONC 32.2 GM/DL 32.3-36.5 L (BEAKER) (test code = 752) RED CELL DISTRIBUTION WIDTH 16.2 % 11.6-14.4 H (BEAKER) (test code = 412) PLATELET COUNT (BEAKER) (test code 49 K/CU MM 150-450 L = 756) MEAN PLATELET VOLUME (BEAKER) 11.6 fL 9.4-12.4 (test code = 754) NUCLEATED RED BLOOD CELLS (BEAKER) 0 /100 WBC 0-0 (test code = 413) RAD, CHEST, 1 VIEW, NON [id number] 04:20:00while patient is intubated or has chest tubes.Reason for exam:->Status post CV SurgeryShould thisbe performed at the bedside?->Yes [facility] : 1955 Sex: MFINAL REPORT RAD, CHEST, 1 VIEW, NON DEPT INDICATION: Status post CV Surgery COMPARISON: Exam from 12 hours prior FINDINGS: Portable frontal view of the chest. IMPRESSION: Support Lines: Stable left chest tube.Lungs and pleura: Bilateral central venous congestion with mildly increased bibasilar hazy parenchymal opacities suggestive of edema and/or layering pleural effusions. . Small left apical pneumothorax is decreased in size.Heart and mediastinum: Stable contours.Additional findings: None. Signed: Jhon Eldridgeeptung Verified Date/Time: 08/16/2020 04:20:29 POCT-GLUCOSE [id number] 20:54:00 Test Item Value Reference Range Interpretation Comments POC-GLUCOSE METER 115 mg/dL 70-110 H : TESTED A [facility] 6720 ([facility]) (test code = GABRIEL Nunez [facility], 1538) [address]: Steward/Stewardess Smoke Room/Techni radha ID = [id number] for RO MAGED SOTOO U/S, [id number] 15:25:00Right pleural effusionReason for exam:- >right pleural effusion [facility] : 1955 Sex: MFINAL REPORT Ultrasound guided right thoracentesis. Clinical History: Right pleural effusion. Modality: Ultrasound. Sedation: None. Assembler Fishing Floats: Kamilla Marte PA-C Tractor Drill Operator: None. Estimated Blood Loss: 1cc Specimen: 1200 cc of charles fluid. Technique: Informed consent was obtained. The risks of pain, bleeding, infection, lung collapse/pneumothorax, injury to adjacent structures, and adverse medication reactions were discussed with the patient. The patient's right hemithorax was scanned from the back, with the patient in a left lateral decubitus position. After the largest fluid pocket area was marked, the skin was prepped and draped in the usual sterile manner. The area was anesthetized with 2% lidocaine, a 5 F one-step catheter was advanced into the pleural space under ultrasound guidance. After completion of drainage, the catheter was removed. There was no evidence of immediate complication. Post procedure chest x-ray is pending. Impression:Successful and uncomplicated ultrasound guided right thoracentesis. Signed: Ashlyn Leroy Verified Date/Time: 08/15/2020 15:25:50 Reading Location: [address] Ultrasound Reading Room US [id number] 15:25:00Interface, External Ris In - 08/15/2020 3:28 PM CSTFINAL REPORT Ultrasound guided right thoracentesis. Clinical History: Right pleural effusion. Modality: Ultrasound. Sedation: None. Assembler Fishing Floats: Kamilla Marte PA-C Tractor Drill Operator: None. Estimated Blood Loss: 1cc Specimen: 1200 cc of charles fluid. Technique: Informed consent was obtained. The risks of pain, bleeding, infection, lung collapse/pneumothorax, injury to adjacent structures, and adverse medication reactions were discussed with the patient. The patient's right hemithorax was scanned from theback, with the patient in a left lateral decubitus position. After the largest fluid pocket area was marked, the skin was prepped and draped in the usual sterile manner. The area was anesthetized with 2% lidocaine, a 5 F one-step catheter was advanced into the pleural space under ultrasound guidance. After completion of drainage, the catheter was removed. There was no evidence of immediate complication. Post procedure chest x-ray is pending. Impression:Successful and uncomplicated ultrasound guided right thoracentesis. Signed: Ashlyn Leroy Verified Date/Time: 08/15/2020 15:25:50 Reading Location: [address] Ultrasound Reading Room [facility] CenterPO[facility] [id number] 15:12:00 Test Item Value Reference Range Interpretation Comments POC-GLUCOSE METER 92 mg/dL 70-110 : TESTED A T [facility] 6720 (SILVANA) (test code = [facility] [place], 1538) [address]: Steward/Stewardess Smoke Room/Techni radha ID = [id number] for Lexus Rodriguez RAD, CHEST, 1 VIEW, NON [id number] 14:46:00Reason for exam:->s/p right thoraShould this be performed at the bedside?->YesU/S rm [address] [facility] : 1955 Sex: MFINAL REPORT RAD, CHEST, 1 VIEW, NON DEPT INDICATION: s/p right thora COMPARISON: 11 hours prior FINDINGS: Portable frontal view of the chest. IMPRESSION: Support Lines:None Lungs and pleura: Decreased right effusion. No postprocedural pneumothorax. Stable trace left apical pneumothorax.Heart and mediastinum: Stable contours. Stable surgical changes.Additional findings: None. Signed: JR Culver Robert MDReport Verified Date/Time: 08/15/2020 14:46:15 Reading Location: [facility] Radiology Reading Room POCT- GLUCOSE [id number] 12:27:00 Test Item Value Reference Range Interpretation Comments POC-GLUCOSE METER 118 mg/dL 70-110 H : TESTED A T [facility] 6720 (BEMARLENE) (test code = [place], 1538) [address]: Steward/Stewardess Smoke Room/Techni radha ID = [id number] for Lexus Oleary Anti-Nuclear Antibody (MISSAEL)2020-08-15 10:57:00 Test Item Value Reference Range Interpretation Comments MISSAEL (test code = 03067-4) Positive Negative A YARI (test code = YARI) Test performed by IFA method. Lab Interpretation (test Abnormal code = 64102-8) [facility] CenterANA Titer & [id number] 10:57:00 Test Item Value Reference Range Interpretation Comments MISSAEL Titer (test code = 58113-6) 1:160 MISSAEL Pattern (test code = 1781) Homogeneous [facility] CenterANTI-NUCLEAR ANTIBODY (MISSAEL)2020-08-15 10:57:00 Test Item Value Reference Range Interpretation Comments ANTI-NUCLEAR ANTIBODY (MISSAEL) (BEAKER) Positive Negative A (test code = 418) Test performed by IFA method.MISSAEL TITER AND [id number] 10:57:00 Test Item Value Reference Range Interpretation Comments MISSAEL TITER (BEAKER) (test code = :160 1541) MISSAEL PATTERN (BEAKER) (test code = Homogeneous 1781) [id number] 09:56:00 Test Item Value Reference Range Interpretation Comments Protime (test code = 14.9 11.9- 14.2 H 5902-2) seconds INR (test code = 1.21 <=5.90 6301-6) PTT (test code = 27.4 22.5- 36.0 36710-4) seconds YARI (test code = YARI) Effective 01/18/2019: PT Reference Range ChangeNew: 11.9-14.2 Previous: 11.7-14.7 RECOMMENDED COUMADIN/WARFARIN INR THERAPY RANGESSTANDARD DOSE: 2.0-3.0 Includes: PROPHYLAXIS for venous thrombosis, systemic embolization; TREATMENT for venous thrombosis and/or pulmonary embolus.HIGH RISK: Target INR is 2.5-3.5 for patients wiht mechanical heart valves. Lab Interpretation Abnormal (test code = 51665-3) [facility] CenterPT/[id number] 09:56:00 Test Item Value Reference Range Interpretation Comments PROTIME (BEAKER) (test code = 14.9 seconds 11.9-14.2 H 759) INR (BEAKER) (test code = 370) 1.21 <=5.90 PARTIAL THROMBOPLASTIN TIME 27.4 seconds 22.5-36.0 (BEAKER) (test code = 760) Effective 01/18/2019: PT Reference Range ChangeNew: 11.9-14.2 Previous: 11.7- 14.7RECOMMENDED COUMADIN/WARFARIN INR THERAPY RANGESSTANDARD DOSE: 2.0-3.0 Includes: PROPHYLAXIS for venous thrombosis, systemic embolization; TREATMENT for venous thrombosis and/or pulmonary embolus.HIGH RISK: Target INR is2.5-3.5 for patients wiht mechanical heart valves.POCT-GLUCOSE [id number] 07:56:00 Test Item Value Reference Range Interpretation Comments POC-GLUCOSE METER 102 mg/dL 70-110 : TESTED A T [facility] 6720 (BEAKER) (test code = [place], 1538) [address]: Steward/Stewardess Smoke Room/Techni radha ID = [id number] for OR JONATHAN ZAYAS BASIC METABOLIC [id number] 06:11:00 Test Item Value Reference Range Interpretation Comments SODIUM (BEAKER) 142 meq/L 136-145 (test code = 381) POTASSIUM (BEAKER) 3.8 meq/L 3.5-5.1 (test code = 379) CHLORIDE (BEAKER) 104 meq/L 98-107 (test code = 382) CO2 (BEAKER) (test 28 meq/L 22-29 code = 355) BLOOD UREA NITROGEN 23 mg/dL 7-21 H (BEAKER) (test code = 354) CREATININE (BEAKER) 4.50 mg/dL 0.57-1.25 H (test code = 358) GLUCOSE RANDOM 108 mg/dL 70-105 H (BEAKER) (test code = 652) CALCIUM (BEAKER) 8.5 mg/dL 8.4-10.2 (test code = 697) EGFR (BEAKER) (test 13 mL/min/1.73 ESTIMA ZOYA GFR IS code = 1092) sq m NOT ACCURATE CREATININE CLEARANCE IN PREDICTING GLOMERULAR FILTRATION RATE . ESTIMATED GFR I S NOT APPLICABLE FOR DIALYSIS PATIEN TS. Steward/Stewardess Smoke Room ID - FREDERIC [id number] 06:10:00 Test Item Value Reference Range Interpretation Comments MAGNESIUM (BEAKER) (test code = 1.9 mg/dL 1.6-2.6 627) Steward/Stewardess Smoke Room ID - FREDERIC [id number] 06:10:00 Test Item Value Reference Range Interpretation Comments PHOSPHORUS (BEAKER) (test code = 3.2 mg/dL 2.3-4.7 604) [facility] ID - FREDERIC [facility] (HEMOGRAM ONLY)2020-08-15 05:14:00 Test Item Value Reference Range Interpretation Comments WHITE BLOOD CELL COUNT (BEAKER) 9.7 K/ L 3.5-10.5 (test code = 775) RED BLOOD CELL COUNT (BEAKER) 2.81 M/ L 4.63-6.08 L (test code = 761) HEMOGLOBIN (BEAKER) (test code = 8.3 GM/DL 13.7-17.5 L 410) HEMATOCRIT (BEAKER) (test code = 26.2 % 40.1-51.0 L 411) MEAN CORPUSCULAR VOLUME (BEAKER) 93.2 fL 79.0-92.2 H (test code = 753) MEAN CORPUSCULAR HEMOGLOBIN 29.5 pg 25.7-32.2 (BEAKER) (test code = 751) MEAN CORPUSCULAR HEMOGLOBIN CONC 31.7 GM/DL 32.3-36.5 L (BEAKER) (test code = 752) RED CELL DISTRIBUTION WIDTH 16.9 % 11.6-14.4 H (BEAKER) (test code = 412) PLATELET COUNT (BEAKER) (test code 61 K/CU MM 150-450 L = 756) MEAN PLATELET VOLUME (BEAKER) 11.9 fL 9.4-12.4 (test code = 754) NUCLEATED RED BLOOD CELLS (BEAKER) 0 /100 WBC 0-0 (test code = 413) RAD, CHEST, 1 VIEW, NON [id number] 04:34:00while patient is intubated or has chest tubes.Reason for exam:->Status post CV SurgeryShould thisbe performed at the bedside?->Yes [facility] 1955 Sex: MFINAL REPORT RAD, CHEST, 1 VIEW, NON DEPT INDICATION: Status post CV Surgery COMPARISON: Prior day's exam FINDINGS: Portable frontal view of the chest. IMPRESSION: Support Lines: Left-sided CVC has been removed. Lungs and pleura: Increased bilateral airspace disease compatible with worsening pulmonary edema, greater on the right. Small bilateral pleural effusions. There is a new small left pneumothorax.Heart and mediastinum: Stable contours. Additional findings: None.Findings discussed with the patient's nurse, Heather, to be immediately conveyed to the patient's physician on 08/15/2020 4:32 AM. Signed: Dane Lopez Verified Date/Time: 08/15/2020 04:34:57 IUM, [id number] 03:56:00 Test Item Value Reference Range Interpretation Comments CALCIUM IONIZED (BEAKER) (test 1.08 mmol/L 1.12-1.27 L code = 698) PH, BLOOD (BEAKER) (test code = 7.42 1810) Prepare [id number] 23:54:00 Test Item Value Reference Range Interpretation Comments CROSSMATCH (test code = 2264) COMPATIBLE Unit ABO (test code = O Pos 9922680) UNIT NUMBER (test code = [id number] 934-0) Status (test code = 6969654) TX_TIMEINCHART Blood Bank Product (test code RED BLOOD CELLS = 2263) PRODUCT CODE (test code = I4492X73 933-2) [facility] CenterPrepare [id number] 23:54:00 Test Item Value Reference Range Interpretation Comments Unit ABO (test code = 0073696) O Pos UNIT NUMBER (test code = [id number] 934-0) Status (test code = 8699558) TX_TIMEINCHART Blood Bank Product (test code FFP = 2263) PRODUCT CODE (test code = [id number] 933-2) [facility] CenterPrepare [id number] 23:54:00 Test Item Value Reference Range Interpretation Comments Unit ABO (test code = 5684023) O Neg UNIT NUMBER (test code = [id number] 934-0) Status (test code = 9530657) TX_TIMEINCHART Blood Bank Product (test code PLATELETS = 2263) PRODUCT CODE (test code = I4517N42 933-2) [facility] CenterU/S, ABDOMINAL, [id number] 11:53:00Abdomen limited area? Add comment if clarification is needed.->Right upper quadrantReason for exam:->Thrombocytopenia - evaluate for cirrhosis and/or splenemegalyKA[facility] : 1955 Sex: MFINAL REPORT TECHNIQUE: Grayscale ultrasound of the right abdomen. INDICATION: Thrombocytopenia - evaluate for cirrhosis and/or splenomegaly. COMPARISON: None. FINDINGS: MIDLINE VASCULATURE: The visualized inferior vena cava is unremarkable. The maximum visualized aortic diameter is 1.9 cm. LIVER: The liver is mildly enlarged at 18.5 cm right hepatic lobe length. Smooth liver contour. No focal lesions. The main portal vein is patent and measures 0.8 cm in diameter. BILIARY:Gallbladder: No gallstones or sludge. No gallbladder wall thickening or pericolic cystic fluid. The gallbladder is mildly distended. Negative sonographic Johnson sign.Common bile duct measures 0.4 cm, within normal limits. No intrahepatic biliary ductal dilatation. PANCREAS: Incompletely visualized due to overlying bowel gas. The partially visualized pancreatic body is normal. SPLEEN: No splenomegaly. The spleen measures 9.7 cm in length. PERITONEUM: No free fluid. RIGHT KIDNEY: The right kidney is small. A right upper pole renal lesion measures 3.3 x 3.2 x 3.1 cm and has posterior acoustic enhancement. A right lower pole renal lesion measures 1.3 x 1.3 x 1.57 m has posterior acoustic enhancement. No hydronephrosis. No sonographically evident solid mass lesion. Moderate size right pleural effusion. IMPRESSION: 1.Mild splenomegaly. 2.Moderate-sized right pleural effusion. 3.Two right renal lesions measure up to 3.3 cm and are most likely simple renal cysts but indeterminate on this ultrasound.This can be further evaluated with a CT of the abdomen with and without intravenous contrast, renal mass protocol, on a nonemergent basis. 4.The gallbladder is mildly distended. However, this is a nonspecific finding which can be seen with fasting. Signed: Shae Aleman MDReport Verified Date/Time: 08/14 11:53:09 US abdomen [id number] 11:53:00Interface, External Ris In - 08/14/2020 11:55 AM CSTFINAL REPORT TECHNIQUE: Grayscale ultrasound of the right abdomen. INDICATION: Thrombocytopenia - evaluate for cirrhosis and/or splenomegaly. COMPARISON: None. FINDINGS: MIDLINE VASCULATURE: The visualized inferior vena cava is unremarkable. The maximum visualized aortic diameter is 1.9 cm. LIVER: The liver is mildly enlargedat 18.5 cm right hepatic lobe length. Smooth liver contour. No focal lesions. The main portal vein is patent and measures 0.8 cm in diameter. BILIARY:Gallbladder: No gallstones or sludge. No gallbladder wall thickening or pericolic cystic fluid. The gallbladder is mildly distended. Negative sonographic Johnson sign.Common bile duct measures 0.4 cm, within normal limits. No intrahepatic biliary ductal d ilatation. PANCREAS: Incompletely visualized due to overlying bowel gas. The partially visualized pancreatic body is normal. SPLEEN: No splenomegaly. The spleen measures 9.7 cm in length. PERITONEUM: No free fluid. RIGHT KIDNEY: The right kidney is small. A right upper pole renal lesion measures 3.3 x3.2 x 3.1 cm and has posterior acoustic enhancement. A right lower pole renal lesion measures 1.3 x 1.3 x 1.57 m has posterior acoustic enhancement. No hydronephrosis. No sonographically evident solid mass lesion. Moderate size right pleural effusion. IMPRESSION: 1.Mild splenomegaly. 2.Moderate-sized right pleural effusion. 3.Two right renal lesions measure up to 3.3 cm and are most likely simple renal cysts but indeterminate on this ultrasound. This can be further evaluated with a CT of the abdomenwith and without intravenous contrast, renal mass protocol, on a nonemergent basis. 4.The gallbladder is mildly distended. However, this is a nonspecific finding which can be seen with fasting. Signed:Shae Aleman [facility] Verified Date/Time: 08/14/2020 11:53:09 [facility], [id number] 10:46:00 Test Item Value Reference Range Interpretation Comments O2 Saturation (Measured) (test code = 92.4 % 49184-0) [facility] CenterOXYGEN SATURATION, [id number] 10:46:00 Test Item Value Reference Range Interpretation Comments O2 SATURATION (MEASURED) (BEAKER) 92.4 % (test code = 1455) Hemoglobin [id number] 08:35:00 Test Item Value Reference Range Interpretation Comments Hemoglobin A1C (test code = 4548-4) 5.4 % 4.3-6.1 Lab Interpretation (test code = Normal 99526-6) [facility] CenterHEMOGLOBIN [id number] 08:35:00 Test Item Value Reference Range Interpretation Comments HEMOGLOBIN A1C (BEAKER) (test code = 5.4 % 4.3-6.1 368) POCT-GLUCOSE [id number] 06:18:00 Test Item Value Reference Range Interpretation Comments POC-GLUCOSE METER 133 mg/dL 70-110 H : TESTED A T [facility] 6720 (BEAKER) (test code = GABRIEL BORJA [place], 1538) [address]: Steward/Stewardess Smoke Room/Techni radha ID = [id number] for BRIELLE LEIVA Hepatitis C [id number] 05:53:00 Test Item Value Reference Range Interpretation Comments Hepatitis C Ab (test Nonreactive Nonreactive code = 79321-3) YARI (test code = YARI) Steward/Stewardess Smoke Room ID - FREDERIC M Lab Interpretation (test Normal code = 74568-0) [facility] CenterHepatitis B [id number] 05:53:00 Test Item Value Reference Range Interpretation Comments Hep B Core Total Ab Nonreactive Nonreactive (test code = 43562-5) Hep B S Ab (test code = 747.6 <8.0 mIU/mL H 09255-1) HBsAg Screen (test code Nonreactive Nonreactive = 5195-3) YARI (test code = YARI) Steward/Stewardess Smoke Room ID - FREDERIC M Lab Interpretation (test Abnormal code = 57662-9) [facility] CenterHIV-1 Antigen with HIV-1/2 [id number] 05:53:00 Test Item Value Reference Range Interpretation Comments HIV-1 Antigen with HIV Nonreactive Nonreactive 1&2 Antibody (test code = 69302-2) YARI (test code = YARI) Steward/Stewardess Smoke Room ID - FREDERIC M Lab Interpretation (test Normal code = 39074-5) [facility] CenterHESA[facility]ITALTIS C [id number] 05:53:00 Test Item Value Reference Range Interpretation Comments HEPATITIS C ANTIBODY (BEAKER) Nonreactive Nonreactive (test code = 367) Steward/Stewardess Smoke Room ID - FREDERIC MHEPATITIS B [id number] 05:53:00 Test Item Value Reference Range Interpretation Comments HEPATITIS B CORE TOTAL ANTIBODY Nonreactive Nonreactive (BEAKER) (test code = 497) HEPATITIS B SURFACE ANTIBODY 747.6 mIU/mL <8.0 H (BEAKER) (test code = 647) HEPATITIS B SURFACE ANTIGEN (2) Nonreactive Nonreactive (BEAKER) (test code = 2585) Steward/Stewardess Smoke Room ID - FREDERIC MHIV-1 ANTIGEN WITH HIV-1/2 [id number] 05:53:00 Test Item Value Reference Range Interpretation Comments HIV-1 ANTIGEN WITH HIV 1\\T\\2 Nonreactive Nonreactive ANTIBODY (2) (BEAKER) (test code = 2586) Steward/Stewardess Smoke Room ID - FREDERIC MBASIC METABOLIC [id number] 04:55:00 Test Item Value Reference Range Interpretation Comments SODIUM (BEAKER) 144 meq/L 136-145 (test code = 381) POTASSIUM (BEAKER) 4.4 meq/L 3.5-5.1 (test code = 379) CHLORIDE (BEAKER) 105 meq/L 98-107 (test code = 382) CO2 (BEAKER) (test 28 meq/L 22-29 code = 355) BLOOD UREA NITROGEN 29 mg/dL 7-21 H (BEAKER) (test code = 354) CREATININE (BEAKER) 5.49 mg/dL 0.57-1.25 H (test code = 358) GLUCOSE RANDOM 142 mg/dL 70-105 H (BEAKER) (test code = 652) CALCIUM (BEAKER) 8.9 mg/dL 8.4-10.2 (test code = 697) EGFR (BEAKER) (test 11 mL/min/1.73 ESTIMA ZOYA GFR IS code = 1092) sq m NOT ACCURATE CREATININE CLEARANCE IN PREDICTING GLOMERULAR FILTRATION RATE . ESTIMATED GFR I S NOT APPLICABLE FOR DIALYSIS PATIEN TS. Steward/Stewardess Smoke Room MALLIKA - FREDERIC MLipid [id number] 04:39:00 Test Item Value Reference Range Interpretation Comments Triglycerides (test 96 mg/dL code = 2571-8) Cholesterol (test code 79 mg/dL = 2093-3) HDL (test code = 23 mg/dL 5-9) LDL Calculated (test 37 mg/dL code = 71514-1) YARI (test code = YARI) Triglyceride Reference Range: Low Risk <150 Borderline 150-199 High Risk 200-499 Very High Risk >=500 Cholesterol Reference Range: Low Risk <200 Borderline 200-239 High Risk >240 HDL Cholesterol Reference Range: Low Risk >=60 High Risk <40 LDL Cholesterol Reference Range: Optimal <100 Near Optimal 100-129 Borderline 130-159 High 160-189 Very High >=190 Steward/Stewardess Smoke Room MALLIKA - FREDERIC Damon [facility] [id number] 04:39:00 Test Item Value Reference Range Interpretation Comments MAGNESIUM (BEAKER) (test code = 1.9 mg/dL 1.6-2.6 627) Steward/Stewardess Smoke Room MALLIKA DE LA GARZA [id number] 04:39:00 Test Item Value Reference Range Interpretation Comments PHOSPHORUS (BEAKER) (test code = 4.5 mg/dL 2.3-4.7 604) Steward/Stewardess Smoke Room MALLIKA - FREDERIC MLIPID [id number] 04:39:00 Test Item Value Reference Range Interpretation Comments TRIGLYCERIDES (BEAKER) (test code = 96 mg/dL 540) CHOLESTEROL (BEAKER) (test code = 79 mg/dL 631) HDL CHOLESTEROL (BEAKER) (test code 23 mg/dL = 976) LDL CHOLESTEROL CALCULATED (BEAKER) 37 mg/dL (test code = 633) Triglyceride Reference Range: Low Risk <150 Borderline 150-199 High Risk 200-499 Very High Risk >=500Cholesterol Reference Range: Low Risk <200 Borderline 200-239 High Risk >240HDL Cholesterol Reference Range: Low Risk >=60 High Risk <40LDL Cholesterol Reference Range: Optimal <100 Near Optimal 100-129 Borderline 130-159 High 160-189 Very High >=190 Steward/Stewardess Smoke Room ID - FREDERIC MRAD, CHEST, 1 VIEW, NON [id number] 04:33:00 while patient is intubated or has chest tubes.Reason for exam:->Status post CV SurgeryShould thisbe performed at the bedside?->Yes [facility] : 1955 Sex: MFINAL REPORT CLINICAL INDICATION: Postop Comparison: 08/13/2020 at 1530 hours The patient is rotated to the right. The cardiomediastinal contours are grossly stable. The lung volumes have decreased slightly after extubation. Central pulmonary vascular congestion and bilateral parenchymal and pleural opacities are similar within variation of acquisition technique. There is no pneumothorax. Remaining support lines are stable. This includes a left-sided vascular catheter which has its tip overlying the left superior mediastinum. This may be within the venous system but intra-arterial positioning should be excluded clinically. Signed: Rich Gabriel MDReport Verified Date/Time: 08/14/2020 04:33:06 Blood gas, [id number] 04:21:00 Test Item Value Reference Range Interpretation Comments pH, Arterial (test code = 2744-1) 7.40 7.35-7.45 pCO2, Arterial (test code = 48 35- 45 mm Hg H 2018-) pO2, Arterial (test code = 2703-7) 121 80- 90 mm Hg H O2 Sat, Arterial (test code = 98.4 % 96-97 H 2708-6) HCO3, Arterial (test code = 29 mmol/L 21-29 1960-4) Base Excess, Arterial (test code = 3.7 mmol/L -2-3 H 1925-7) Patient Temperature (test code = 36.9 8310-5) FIO2 (test code = 1819) 36 Lab Interpretation (test code = Abnormal 89654-0) [facility] CenterBLOOD GAS, [id number] 04:21:00 Test Item Value Reference Range Interpretation Comments PH ARTERIAL (BEAKER) (test code = 7.40 7.35-7.45 383) PCO2 ARTERIAL (BEAKER) (test code 48 mm Hg 35-45 H = 384) PO2 ARTERIAL (BEAKER) (test code = 121 mm Hg 80-90 H 385) O2 SATURATION ARTERIAL (BEAKER) 98.4 % 96.0-97.0 H (test code = 386) HCO3 ARTERIAL (BEAKER) (test code 29 mmol/L 21-29 = 388) BASE EXCESS ARTERIAL (BEAKER) 3.7 mmol/L -2.0-3.0 H (test code = 387) PATIENT TEMPERATURE (BEAKER) (test 36.9 code = 1818) FIO2 (BEAKER) (test code = 1819) 36.0 CALCIUM, [id number] 04:14:00 Test Item Value Reference Range Interpretation Comments CALCIUM IONIZED (BEAKER) (test 1.15 mmol/L 1.12-1.27 code = 698) PH, BLOOD (BEAKER) (test code = 7.40 1810) CBC (HEMOGRAM ONLY)2020-08-14 04:09:00 Test Item Value Reference Range Interpretation Comments WHITE BLOOD CELL COUNT (BEAKER) 8.6 K/ L 3.5-10.5 (test code = 775) RED BLOOD CELL COUNT (BEAKER) 2.75 M/ L 4.63-6.08 L (test code = 761) HEMOGLOBIN (BEAKER) (test code = 8.1 GM/DL 13.7-17.5 L 410) HEMATOCRIT (BEAKER) (test code = 25.4 % 40.1-51.0 L 411) MEAN CORPUSCULAR VOLUME (BEAKER) 92.4 fL 79.0-92.2 H (test code = 753) MEAN CORPUSCULAR HEMOGLOBIN 29.5 pg 25.7-32.2 (BEAKER) (test code = 751) MEAN CORPUSCULAR HEMOGLOBIN CONC 31.9 GM/DL 32.3-36.5 L (BEAKER) (test code = 752) RED CELL DISTRIBUTION WIDTH 17.2 % 11.6-14.4 H (BEAKER) (test code = 412) PLATELET COUNT (BEAKER) (test code 75 K/CU MM 150-450 L = 756) MEAN PLATELET VOLUME (BEAKER) 10.6 fL 9.4-12.4 (test code = 754) NUCLEATED RED BLOOD CELLS (BEAKER) 0 /100 WBC 0-0 (test code = 413) POCT-GLUCOSE [id number] 00:43:00 Test Item Value Reference Range Interpretation Comments POC-GLUCOSE METER 129 mg/dL 70-110 H : TESTED A T [facility] 6720 (BEAKER) (test code = GABRIEL BORJA [place], 1538) [address]: Steward/Stewardess Smoke Room/Techni radha ID = [id number] for BRIELLE LEIVA Lactic Acid, [id number] 19:57:00 Test Item Value Reference Range Interpretation Comments Lactate, Art (test code = 1.1 mmol/L 0.5-2.2 2874) YARI (test code = YARI) Steward/Stewardess Smoke Room ID - BS Lab Interpretation (test Normal code = 25572-8) [facility] CenterLACTIC ACID, [id number] 19:57:00 Test Item Value Reference Range Interpretation Comments LACTATE BLOOD ARTERIAL (2) 1.1 mmol/L 0.5-2.2 (BEAKER) (test code = 2874) Steward/Stewardess Smoke Room ID - BSHGB/HCT (H&H)-Stat [id number] 19:47:00 Test Item Value Reference Range Interpretation Comments Hemoglobin (test code = 786-4) 9.2 13.0- 16.8 GM/DL L Hematocrit (test code = 4544-3) 27.0 % 40-50 L Lab Interpretation (test code = Abnormal 48045-5) [facility] CenterGlucose-Stat [id number] 19:47:00 Test Item Value Reference Range Interpretation Comments Glucose (test code = 2345-7) 146 mg/dL 70-110 H Lab Interpretation (test code = Abnormal 47625-6) [facility] [id number] 19:47:00 Test Item Value Reference Range Interpretation Comments Sodium (test code = 2951-2) 141 meq/L 136-145 Lab Interpretation (test code = Normal 70083-2) [facility] CenterPotassium-Stat [id number] 19:47:00 Test Item Value Reference Range Interpretation Comments Potassium (test code = 2823-3) 3.9 meq/L 3.6-5.5 Lab Interpretation (test code = Normal 35341-0) [facility] [id number] 19:47:00 Test Item Value Reference Range Interpretation Comments SODIUM (BEAKER) (test code = 381) 141 meq/L 136-145 POTASSIUM-STAT [id number] 19:47:00 Test Item Value Reference Range Interpretation Comments POTASSIUM (BEAKER) (test code = 3.9 meq/L 3.6-5.5 379) BLOOD GAS, [id number] 19:47:00 Test Item Value Reference Range Interpretation Comments PH ARTERIAL (BEAKER) (test code = 7.47 7.35-7.45 H 383) PCO2 ARTERIAL (BEAKER) (test code 44 mm Hg 35-45 = 384) PO2 ARTERIAL (BEAKER) (test code = 116 mm Hg 80-90 H 385) O2 SATURATION ARTERIAL (BEAKER) 98.3 % 96.0-97.0 H (test code = 386) HCO3 ARTERIAL (BEAKER) (test code 31 mmol/L 21-29 H = 388) BASE EXCESS ARTERIAL (BEAKER) 6.4 mmol/L -2.0-3.0 H (test code = 387) PATIENT TEMPERATURE (BEAKER) (test 37.5 code = 1818) FIO2 (BEAKER) (test code = 1819) 40.0 GLUCOSE-STAT [id number] 19:47:00 Test Item Value Reference Range Interpretation Comments GLUCOSE RANDOM (BEAKER) (test code 146 mg/dL 70-110 H = 652) HGB/HCT (H&H) - STAT [id number] 19:47:00 Test Item Value Reference Range Interpretation Comments HEMOGLOBIN (BEAKER) (test code = 9.2 GM/DL 13.0-16.8 L 410) HEMATOCRIT (BEAKER) (test code = 27.0 % 40.0-50.0 L 411) Hepatitis B surface [id number] 19:30:00 Test Item Value Reference Range Interpretation Comments HBsAg Screen (test code Nonreactive Nonreactive = 5195-3) YARI (test code = YARI) Specimen is considered negative for HBsAg. Lab Interpretation (test Normal code = 69713-8) [facility] CenterHEPATITIS B SURFACE [id number] 19:30:00 Test Item Value Reference Range Interpretation Comments HEPATITIS B SURFACE ANTIGEN (2) Nonreactive Nonreactive (BEAKER) (test code = 2585) Specimen is considered negative for HBsAg.Thromboelastograph (TEG)2020-08-13 18:10:00 Test Item Value Reference Range Interpretation Comments TEG Activated Clotting Time (test 7.8 4.0- 7.0 minutes H code = 78642-2) TEG Fibrinogen Activity (test 58.1 61.0- 73.0 degrees L code = 17471-9) TEG Platelet Aggregation (test 49.3 55.0- 65.0 MM L code = 49837-7) TEG Fibrinolysis (test code = 0.5 % 0-5 07334-3) TEG-H Activated Clotting Time 8.1 4.0- 7.0 minutes H (test code = 1411) TEG-H Fibrinogen Activity (test 64.7 61.0- 73.0 degrees code = 1412) TEG-H Platelet Aggregation (test 53.8 55.0- 65.0 MM L code = 1413) TEG-H Fibrinolysis (test code = 0.0 % 0-5 1414) Lab Interpretation (test code = Abnormal 14224-6) [facility] CenterTHROMBOELASTOGRAPH (TEG)2020-08-13 18:10:00 Test Item Value Reference Range Interpretation Comments TEG ACTIVATED CLOTTING TIME 7.8 minutes 4.0-7.0 H (BEAKER) (test code = 1407) TEG FIBRINOGEN ACTIVITY (BEAKER) 58.1 degrees 61.0-73.0 L (test code = 1408) TEG PLT. AGGREGATION (BEAKER) 49.3 MM 55.0-65.0 L (test code = 1409) TEG FIBRINOLYSIS (BEAKER) (test 0.5 % 0.0-5.0 code = 1410) TGH ACTIVATED CLOTTING TIME 8.1 minutes 4.0-7.0 H (BEAKER) (test code = 1411) [facility] FIBRINOGEN ACTIVITY (BEAKER) 64.7 degrees 61.0-73.0 (test code = 1412) TGH PLT. AGGREGATION (BEAKER) 53.8 MM 55.0-65.0 L (test code = 1413) TGH FIBRINOLYSIS (BEAKER) (test 0.0 % 0.0-5.0 code = 1414) BLOOD GAS, [id number] 16:26:00 Test Item Value Reference Range Interpretation Comments PH ARTERIAL (BEAKER) (test code = 7.53 7.35-7.45 H 383) PCO2 ARTERIAL (BEAKER) (test code 36 mm Hg 35-45 = 384) PO2 ARTERIAL (BEAKER) (test code = 109 mm Hg 80-90 H 385) O2 SATURATION ARTERIAL (BEAKER) 98.6 % 96.0-97.0 H (test code = 386) HCO3 ARTERIAL (BEAKER) (test code 30 mmol/L 21-29 H = 388) BASE EXCESS ARTERIAL (BEAKER) 6.8 mmol/L -2.0-3.0 H (test code = 387) PATIENT TEMPERATURE (BEAKER) (test 35.9 code = 1818) FIO2 (BEAKER) (test code = 1819) 50.0 GLUCOSE-STAT [id number] 16:26:00 Test Item Value Reference Range Interpretation Comments GLUCOSE RANDOM (BEAKER) (test code 165 mg/dL 70-110 H = 652) HGB/HCT (H&H) - STAT [id number] 16:26:00 Test Item Value Reference Range Interpretation Comments HEMOGLOBIN (BEAKER) (test code = 9.6 GM/DL 13.0-16.8 L 410) HEMATOCRIT (BEAKER) (test code = 28.0 % 40.0-50.0 L 411) SODIUM NA-STAT [id number] 16:25:00 Test Item Value Reference Range Interpretation Comments SODIUM (BEAKER) (test code = 381) 143 meq/L 136-145 POTASSIUM-STAT [id number] 16:25:00 Test Item Value Reference Range Interpretation Comments POTASSIUM (BEAKER) (test code = 3.6 meq/L 3.6-5.5 379) RAD, CHEST, 1 VIEW, NON [id number] 15:39:00Reason for exam:->pleural effusions/p intubation Should this be performed at the bedside?->Yes [facility] 1955 Sex: MFINAL REPORT RAD, CHEST, 1 VIEW, NON DEPT INDICATION: pleural effusion COMPARISON: 1 hour prior FINDINGS: Portable frontal view of the chest. IMPRESSION: Support Lines: Stable. Lungs and pleura: Stable effusion on the right. No pneumothorax.Heart and mediastinum: Stablecontours. Stable surgical changes.Additional findings: None. Signed: JR Culver Robert MDReport Verified Date/Time: 08/13/2020 15:39:40 Reading Location: [facility] Radiology Reading Room PT/[id number] 15:02:00 Test Item Value Reference Range Interpretation Comments PROTIME (BEAKER) (test code = 16.5 seconds 11.9-14.2 H 759) INR (BEAKER) (test code = 370) 1.37 <=5.90 PARTIAL THROMBOPLASTIN TIME 32.2 seconds 22.5-36.0 (BEAKER) (test code = 760) Effective 01/18/2019: PT Reference Range ChangeNew: 11.9-14.2 Previous: 11.7- 14.7RECOMMENDED COUMADIN/WARFARIN INR THERAPY RANGESSTANDARD DOSE: 2.0-3.0 Includes: PROPHYLAXIS for venous thrombosis, systemic embolization; TREATMENT for venous thrombosis and/or pulmonary embolus.HIGH RISK: Target INR is2.5-3.5 for patients wiht mechanical heart valves.Prothrombin time/[id number] 15:01:00 Test Item Value Reference Range Interpretation Comments Protime (test code = 16.5 11.9- 14.2 H 5902-2) seconds INR (test code = 1.37 <=5.90 6301-6) YARI (test code = YARI) Effective 01/18/2019: PT Reference Range ChangeNew: 11.9-14.2 Previous: 11.7-14.7 RECOMMENDED COUMADIN/WARFARIN INR THERAPY RANGESSTANDARD DOSE: 2.0-3.0 Includes: PROPHYLAXIS for venous thrombosis, systemic embolization; TREATMENT for venous thrombosis and/or pulmonary embolus.HIGH RISK: Target INR is 2.5-3.5 for patients wiht mechanical heart valves. Lab Interpretation Abnormal (test code = 03097-2) [facility] CenterPROTHROMBIN TIME/[id number] 15:01:00 Test Item Value Reference Range Interpretation Comments PROTIME (BEAKER) (test code = 16.5 seconds 11.9-14.2 H 759) INR (BEAKER) (test code = 370) 1.37 <=5.90 Effective 01/18/2019: PT Reference Range ChangeNew: 11.9-14.2 Previous: 11.7- 14.7RECOMMENDED COUMADIN/WARFARIN INR THERAPY RANGESSTANDARD DOSE: 2.0-3.0 Includes: PROPHYLAXIS for venous thrombosis, systemic embolization; TREATMENT for venous thrombosis and/or pulmonary embolus.HIGH RISK: Target INR is2.5-3.5 for patients wiht mechanical heart valves.CALCIUM, [id number] 14:59:00 Test Item Value Reference Range Interpretation Comments CALCIUM IONIZED (BEAKER) (test 1.26 mmol/L 1.12-1.27 code = 698) PH, BLOOD (BEAKER) (test code = 7.54 1810) OXYGEN SATURATION, [id number] 14:57:00 Test Item Value Reference Range Interpretation Comments O2 SATURATION (MEASURED) (BEAKER) 94.2 % (test code = 1455) Comprehensive metabolic [id number] 14:18:00 Test Item Value Reference Range Interpretation Comments Protein, Total (test 5.1 6.0- 8.3 gm/dL L Speci men slightly code = 2885-2) hemolyzed Albumin (test code = 3.0 g/dL 3.5-5 L Specime n slightly 13912-5) hemolyzed Alkaline Phosphatase 65 U/L 40-150 (test code = 6768-6) Total Bilirubin (test 1.0 mg/dL 0.2-1.2 Specim en slightly code = 1975-2) hemolyzed Sodium (test code = 145 meq/L 609-021 1781-2) Potassium (test code 3.9 meq/L 3.5-5.1 Specime n slightly = 2823-3) hemolyzed Chloride (test code = 106 meq/L 98-107 2074-0) CO2 (test code = 29 meq/L 22-29 2027-9) BUN (test code = 23 mg/dL 7-21 H 3094-0) Creatinine (test code 4.66 mg/dL 0.57-1.25 H Specim en slightly = 2160-0) hemolyzed Glucose (test code = 164 mg/dL 70-105 H 2345-7) Calcium (test code = 10.4 mg/dL 8.4-10.2 H Discord ant CALCIUM 85760-3) result compared to previous result ; clinical correlation required. AST (test code = 24 U/L 5-34 Specimen sl ightly 1920-8) hemolyzed ALT (test code = 13 U/L 6-55 Specimen sl ightly 1742-6) hemolyzed EGFR (test code = 13 mL/min/1.73 [place] [address]-8) NOT ACCURATE CREATININE CLEARANCE IN PREDICTING GLOMERULAR FILTRATION RATE . ESTIMATED GFR I S NOT APPLICABLE FOR DIALYSIS PATIEN TS. [place]EN[place] (test code = YARI) Steward/Stewardess Smoke Room ID - RM Lab Interpretation Abnormal (test code = 49759-8) [facility] CenterCOMPREHENSIVE METABOLIC [id number] 14:18:00 Test Item Value Reference Range Interpretation Comments TOTAL PROTEIN 5.1 gm/dL 6.0-8.3 L Specimen sligh tly (BEAKER) (test code hemolyze d = 770) ALBUMIN (BEAKER) 3.0 g/dL 3.5-5.0 L Specimen sl ightly (test code = 1145) hemolyzed ALKALINE PHOSPHATASE 65 U/L 40-150 (BEAKER) (test code = 346) BILIRUBIN TOTAL 1.0 mg/dL 0.2-1.2 Specimen sli ghtly (BEAKER) (test code hemolyze d = 377) SODIUM (BEAKER) 145 meq/L 136-145 (test code = 381) POTASSIUM (BEAKER) 3.9 meq/L 3.5-5.1 Specimen slightly (test code = 379) hemolyzed CHLORIDE (BEAKER) 106 meq/L 98-107 (test code = 382) CO2 (BEAKER) (test 29 meq/L 22-29 code = 355) BLOOD UREA NITROGEN 23 mg/dL 7-21 H (BEAKER) (test code = 354) CREATININE (BEAKER) 4.66 mg/dL 0.57-1.25 H Specimen slightly (test code = 358) hemolyzed GLUCOSE RANDOM 164 mg/dL 70-105 H (BEAKER) (test code = 652) CALCIUM (BEAKER) 10.4 mg/dL 8.4-10.2 H Discordant CALCIUM (test code = 697) result com pared to previous result ; clinical correl ation required. AST (SGOT) (BEAKER) 24 U/L 5-34 Specimen slightly (test code = 353) hemolyzed ALT (SGPT) (BEAKER) 13 U/L 6-55 Specimen slightly (test code = 347) hemolyzed EGFR (BEAKER) (test 13 mL/min/1.73 ESTIMA ZOYA GFR IS NOT code = 1092) sq m ACCURATE CREATININE LOUIS ROSANNE IN PREDICTING GLOMERULAR FILTRATION RATE . ESTIMATED GFR I S NOT APPLICABLE FOR DIALYSIS PATIEN TS. Steward/Stewardess Smoke Room ID - [id number] 14:15:00 Test Item Value Reference Range Interpretation Comments MAGNESIUM (BEAKER) 1.9 mg/dL 1.6-2.6 Specimen slightly (test code = 627) hemolyzed Ste[facility]/Stewardess Smoke Room ID - [id number] 14:15:00 Test Item Value Reference Range Interpretation Comments PHOSPHORUS (BEAKER) 3.0 mg/dL 2.3-4.7 Specimen slightly (test code = 604) hemolyzed Steward/Stewardess Smoke Room ID - RMBLOOD GAS, [id number] 14:12:00 Test Item Value Reference Range Interpretation Comments PH ARTERIAL (BEAKER) (test code = 7.54 7.35-7.45 H 383) PCO2 ARTERIAL (BEAKER) (test code 35 mm Hg 35-45 = 384) PO2 ARTERIAL (BEAKER) (test code = 161 mm Hg 80-90 H 385) O2 SATURATION ARTERIAL (BEAKER) 99.3 % 96.0-97.0 H (test code = 386) HCO3 ARTERIAL (BEAKER) (test code 30 mmol/L 21-29 H = 388) BASE EXCESS ARTERIAL (BEAKER) 6.0 mmol/L -2.0-3.0 H (test code = 387) PATIENT TEMPERATURE (BEAKER) (test 34.8 code = 1818) FIO2 (BEAKER) (test code = 1819) 50.0 GLUCOSE-STAT [id number] 14:12:00 Test Item Value Reference Range Interpretation Comments GLUCOSE RANDOM (BEAKER) (test code 161 mg/dL 70-110 H = 652) HGB/HCT (H&H) - STAT [id number] 14:12:00 Test Item Value Reference Range Interpretation Comments HEMOGLOBIN (BEAKER) (test code = 9.8 GM/DL 13.0-16.8 L 410) HEMATOCRIT (BEAKER) (test code = 29.0 % 40.0-50.0 L 411) LACTIC ACID, [id number] 14:10:00 Test Item Value Reference Range Interpretation Comments LACTATE BLOOD 1.3 mmol/L 0.5-2.2 Specimen sligh tly ARTERIAL (2) (BEMARLENE) hemoly zed (test code = 2874) [facility]/Stewardess Smoke Room ID - RMRAD, CHEST, 1 VIEW, NON [id number] 14:10:00Reason for exam:- >Status post CV Surgery post op day 0Should this be performed at the bedside?->Yes[facility] : 1955 Sex: MFINAL REPORT RAD, CHEST, 1 VIEW, NON DEPT INDICATION: Status post CV Surgery post op day 0 COMPARISON: Numerous seven hours prior FINDINGS: Portable frontal view of the chest. IMPRESSION: Support Lines: Endotracheal tube terminates 3 cm above the norma. Left IJ centralvenous catheter terminates at the brachiocephalic vein. Enteric tube side-port is near the GE junction. Thoracic drainage catheters are present. Lungs and pleura: Scattered subsegmental atelectasis noted bilaterally, improved from prior. Small right effusion and apical pleural capping. No pneumothorax.Heart and mediastinum: Stable contours. Sternotomy wires are intact.Additional findings: None. Signed: JR Culver Robert MDReport Verified Date/Time: 08/13/2020 14:10:40 Reading Location: [facility] Radiology Reading Room SODIUM NA-STAT [id number] 14:04:00 Test Item Value Reference Range Interpretation Comments SODIUM (SILVANA) (test code = 381) 140 meq/L 136-145 POTASSIUM-STAT [id number] 14:04:00 Test Item Value Reference Range Interpretation Comments POTASSIUM (BEAKER) (test code = 3.5 meq/L 3.6-5.5 L 379) THROMBOELASTOGRAPH (TEG)2020-08-13 14:01:00 Test Item Value Reference Range Interpretation Comments TEG ACTIVATED CLOTTING TIME 5.0 minutes 4.0-7.0 (BEAKER) (test code = 1407) TEG FIBRINOGEN ACTIVITY (BEAKER) 50.7 degrees 61.0-73.0 L (test code = 1408) TEG PLT. AGGREGATION (BEAKER) 64.4 MM 55.0-65.0 (test code = 1409) TEG FIBRINOLYSIS (BEAKER) (test 1.6 % 0.0-5.0 code = 1410) TGH ACTIVATED CLOTTING TIME 5.8 minutes 4.0-7.0 (BEAKER) (test code = 1411) TGH FIBRINOGEN ACTIVITY (BEAKER) 70.0 degrees 61.0-73.0 (test code = 1412) TGH PLT. AGGREGATION (BEAKER) 57.5 MM 55.0-65.0 (test code = 1413) TGH FIBRINOLYSIS (BEAKER) (test 0.2 % 0.0-5.0 code = 1414) CBC (HEMOGRAM ONLY)2020-08-13 14:00:00 Test Item Value Reference Range Interpretation Comments WHITE BLOOD CELL COUNT (BEAKER) 7.9 K/ L 3.5-10.5 (test code = 775) RED BLOOD CELL COUNT (BEAKER) 3.00 M/ L 4.63-6.08 L (test code = 761) HEMOGLOBIN (BEAKER) (test code = 9.1 GM/DL 13.7-17.5 L 410) HEMATOCRIT (BEAKER) (test code = 27.5 % 40.1-51.0 L 411) MEAN CORPUSCULAR VOLUME (BEAKER) 91.7 fL 79.0-92.2 (test code = 753) MEAN CORPUSCULAR HEMOGLOBIN 30.3 pg 25.7-32.2 (BEAKER) (test code = 751) MEAN CORPUSCULAR HEMOGLOBIN CONC 33.1 GM/DL 32.3-36.5 (BEAKER) (test code = 752) RED CELL DISTRIBUTION WIDTH 16.3 % 11.6-14.4 H (BEAKER) (test code = 412) PLATELET COUNT (BEAKER) (test 129 K/CU MM 150-450 L code = 756) MEAN PLATELET VOLUME (BEAKER) 10.0 fL 9.4-12.4 (test code = 754) NUCLEATED RED BLOOD CELLS 0 /100 WBC 0-0 (BEAKER) (test code = 413) OXYGEN SATURATION, [id number] 13:57:00 Test Item Value Reference Range Interpretation Comments O2 SATURATION (MEASURED) (BEAKER) 93.6 % (test code = 1455) LACTATE DEHYDROGENASE (LDH)2020-08-13 13:28:00 Test Item Value Reference Range Interpretation Comments LACTATE DEHYDROGENASE 209 U/L 125-220 Specim en slightly (BEAKER) (test code = hemoly zed 635) Steward/Stewardess Smoke Room ID - [id number] 13:25:00 Test Item Value Reference Range Interpretation Comments PHOSPHORUS (BEAKER) 3.0 mg/dL 2.3-4.7 Specimen slightly (test code = 604) hemolyzed Steward/Stewardess Smoke Room ID - MONIKAGBILIRUBIN, TOTAL AND [id number] 13:25:00 Test Item Value Reference Range Interpretation Comments BILIRUBIN TOTAL 0.6 mg/dL 0.2-1.2 Specimen sli ghtly (BEAKER) (test code = hemoly zed 377) BILIRUBIN DIRECT 0.3 mg/dL 0.1-0.5 Specimen sl ightly (BEAKER) (test code = hemoly zed 706) Steward/Stewardess Smoke Room ID - [id number] 13:23:00 Test Item Value Reference Range Interpretation Comments Haptoglobin (test code = 61 mg/dL 14-258 4542-7) YARI (test code = YARI) Steward/Stewardess Smoke Room ID - ROSIANG Lab Interpretation (test Normal code = 16262-1) [facility] CenterHAPTOGLOBIN2020-12-22 13:23:00 Test Item Value Reference Range Interpretation Comments HAPTOGLOBIN (BEAKER) (test code = 61 mg/dL 14258 366) Steward/Stewardess Smoke Room ID - [id number] 13:22:00 Test Item Value Reference Range Interpretation Comments Fibrinogen (test code = 3255-7) 255 mg/dl 225-434 Lab Interpretation (test code = Normal 46838-3) [facility] CenteraPTT2020-12-22 13:22:00 Test Item Value Reference Range Interpretation Comments PTT (test code = 23581-1) 33.2 22.5- 36.0 seconds Lab Interpretation (test code = Normal 90148-4) [facility] CenterFIBRINOGEN2020-12-22 13:22:00 Test Item Value Reference Range Interpretation Comments FIBRINOGEN LEVEL (BEAKER) (test 255 mg/dl 225-434 code = 658) [id number] 13:22:00 Test Item Value Reference Range Interpretation Comments PARTIAL THROMBOPLASTIN TIME 33.2 seconds 22.5-36.0 (BEAKER) (test code = 760) PROTHROMBIN TIME/[id number] 13:21:00 Test Item Value Reference Range Interpretation Comments PROTIME (BEAKER) (test code = 16.7 seconds 11.9-14.2 H 759) INR (BEAKER) (test code = 370) 1.40 <=5.90 Effective 01/18/2019: PT Reference Range ChangeNew: 11.9-14.2 Previous: 11.7- 14.7RECOMMENDED COUMADIN/WARFARIN INR THERAPY RANGESSTANDARD DOSE: 2.0-3.0 Includes: PROPHYLAXIS for venous thrombosis, systemic embolization; TREATMENT for venous thrombosis and/or pulmonary embolus.HIGH RISK: Target INR is2.5-3.5 for patients wiht mechanical heart valves.Lactate dehydrogenase (LDH)2020-08-13 13:16:00 Test Item Value Reference Range Interpretation Comments LDH (test code = 2532-0) 171 U/L 125-220 YARI (test code = YARI) Steward/Stewardess Smoke Room ID - Fixed - Parking TicketsAGUSTIN Lab Interpretation (test Normal code = 25230-6) [facility] CenterBilirubin, total and [id number] 13:16:00 Test Item Value Reference Range Interpretation Comments Total Bilirubin (test code 1.0 mg/dL 0.2-1.2 = 1975-2) Bilirubin, Direct (test 0.5 mg/dL 0.1-0.5 code = 1967-7) YARI (test code = YARI) Steward/Stewardess Smoke Room ID - Fixed - Parking TicketsIAN Lab Interpretation (test Normal code = 89933-1) [facility] CenterBILIRUBIN, TOTAL AND [id number] 13:16:00 Test Item Value Reference Range Interpretation Comments BILIRUBIN TOTAL (BEAKER) (test code 1.0 mg/dL 0.2-1.2 = 377) BILIRUBIN DIRECT (BEAKER) (test 0.5 mg/dL 0.1-0.5 code = 706) Steward/Stewardess Smoke Room ID - ROSIANGLACTATE DEHYDROGENASE (LDH)2020-08-13 13:16:00 Test Item Value Reference Range Interpretation Comments LACTATE DEHYDROGENASE (BEAKER) (test 171 U/L 125-220 code = 635) Steward/Stewardess Smoke Room ID - ROSIANGPOC ACTIVATED CLOTTING [id number] 13:11:00 Test Item Value Reference Range Interpretation Comments Activated Clotting Time 120 sec : 74 -137 seconds, (test code = 441) Baseline: TESTED AT [address], [facility] 30: Steward/Stewardess Smoke Room/Techni radha ID = [id number] for KI BLER, ARELIS [facility]POCT[facility][id number] 13:11:00 Test Item Value Reference Range Interpretation Comments ACTIVATED CLOTTING TIME 120 sec : 74 -137 seconds, (BEAKER) (test code = Baseli ne: TESTED AT 441) [address], [facility] 30: Steward/Stewardess Smoke Room/Techni radha ID = [id number] for KI BLER, ARELIS [id number] 13:11:00 Test Item Value Reference Range Interpretation Comments ACTIVATED CLOTTING TIME 120 sec : 74 -137 seconds, (BEAKER) (test code = Baseli ne: TESTED AT 441) [address], [facility] 30: Steward/Stewardess Smoke Room/Techni radha ID = [id number] for KI BLER, ARELIS [id number] 13:11:00 Test Item Value Reference Range Interpretation Comments ACTIVATED CLOTTING TIME 984 sec : 74 -137 seconds, (BEAKER) (test code = Baseli ne: TESTED AT 441) [address], [facility] 30: Steward/Stewardess Smoke Room/Techni radha ID = [id number] for KI BLER, ARELIS [id number] 13:11:00 Test Item Value Reference Range Interpretation Comments ACTIVATED CLOTTING TIME 912 sec : 74 -137 seconds, (BEAKER) (test code = Baseli ne: TESTED AT 441) [place] [address]: Steward/Stewardess Smoke Room/Techni rahda ID = [id number] for BRIGIDO BLERARELIS [id number] 13:11:00 Test Item Value Reference Range Interpretation Comments ACTIVATED CLOTTING TIME > sec : 74 -137 seconds, (BEAKER) (test code = Baseli ne: TESTED AT 441) [facility] [address] [facility], [facility] 30: Steward/Stewardess Smoke Room/Techni radha ID = [id number] for BRIGIDO BLERARELIS [id number] 13:11:00 Test Item Value Reference Range Interpretation Comments ACTIVATED CLOTTING TIME 131 sec : 74 -137 seconds, (BEAKER) (test code = Baseli ne: TESTED AT 441) [address], [facility] 30: Steward/Stewardess Smoke Room/Techni radha ID = [id number] for SUJEY CARLSON CBC with platelet count + automated [id number] 13:04:00 Test Item Value Reference Range Interpretation Comments WBC (test code = 6690-2) 8.5 3.5- 10.5 K/L RBC (test code = 789-8) 2.57 4.63- 6.08 M/L L MCHC (test code = 786-4) 31.9 32.3- 36.5 GM/DL L Hematocrit (test code = 4544-3) 23.8 % 40.1-51 L MCV (test code = 787-2) 92.6 fL 79-92.2 H MCH (test code = 785-6) 29.6 pg 25.7-32.2 RDW (test code = 788-0) 16.5 % 11.6-14.4 H Platelets (test code = 777-3) 181 150- 450 K/CU MM MPV (test code = 37176-2) 10.0 fL 9.4-12.4 nRBC (test code = 413) 0 0- 0 /100 WBC % Neutros (test code = 429) 75 % % Lymphs (test code = 430) 16 % % Monos (test code = 431) 6 % % Eos (test code = 432) 1 % % Baso (test code = 437) 0 % # Neutros (test code = 670) 6.40 1.78- 5.38 K/L H # Lymphs (test code = 414) 1.34 1.32- 3.57 K/L # Monos (test code = 415) 0.52 0.30- 0.82 K/L # Eos (test code = 416) 0.12 0.04- 0.54 K/L # Baso (test code = 417) 0.02 0.01- 0.08 K/L Immature Granulocytes-Relative 1 % 0-1 (test code = 2801) Lab Interpretation (test code = Abnormal 41246-8) [facility] W/PLT COUNT & AUTO [id number] 13:04:00 Test Item Value Reference Range Interpretation Comments WHITE BLOOD CELL COUNT (BEAKER) 8.5 K/ L 3.5-10.5 (test code = 775) RED BLOOD CELL COUNT (BEAKER) 2.57 M/ L 4.63-6.08 L (test code = 761) HEMOGLOBIN (BEAKER) (test code = 7.6 GM/DL 13.7-17.5 L 410) HEMATOCRIT (BEAKER) (test code = 23.8 % 40.1-51.0 L 411) MEAN CORPUSCULAR VOLUME (BEAKER) 92.6 fL 79.0-92.2 H (test code = 753) MEAN CORPUSCULAR HEMOGLOBIN 29.6 pg 25.7-32.2 (BEAKER) (test code = 751) MEAN CORPUSCULAR HEMOGLOBIN CONC 31.9 GM/DL 32.3-36.5 L (BEAKER) (test code = 752) RED CELL DISTRIBUTION WIDTH 16.5 % 11.6-14.4 H (BEAKER) (test code = 412) PLATELET COUNT (BEAKER) (test 181 K/CU MM 150-450 code = 756) MEAN PLATELET VOLUME (BEAKER) 10.0 fL 9.4-12.4 (test code = 754) NUCLEATED RED BLOOD CELLS 0 /100 WBC 0-0 (BEAKER) (test code = 413) NEUTROPHILS RELATIVE PERCENT 75 % (BEAKER) (test code = 429) LYMPHOCYTES RELATIVE PERCENT 16 % (BEAKER) (test code = 430) MONOCYTES RELATIVE PERCENT 6 % (BEAKER) (test code = 431) EOSINOPHILS RELATIVE PERCENT 1 % (BEAKER) (test code = 432) BASOPHILS RELATIVE PERCENT 0 % (BEAKER) (test code = 437) NEUTROPHILS ABSOLUTE COUNT 6.40 K/ L 1.78-5.38 H (BEAKER) (test code = 670) LYMPHOCYTES ABSOLUTE COUNT 1.34 K/ L 1.32-3.57 (BEAKER) (test code = 414) MONOCYTES ABSOLUTE COUNT (BEAKER) 0.52 K/ L 0.30-0.82 (test code = 415) EOSINOPHILS ABSOLUTE COUNT 0.12 K/ L 0.04-0.54 (BEAKER) (test code = 416) BASOPHILS ABSOLUTE COUNT (BEAKER) 0.02 K/ L 0.01-0.08 (test code = 417) IMMATURE GRANULOCYTES-RELATIVE 1 % 0-1 PERCENT (BEAKER) (test code = 2801) RETICULOCYTE [id number] 13:03:00 Test Item Value Reference Range Interpretation Comments RETICULOCYTE COUNT PCT (BEAKER) (test 2.1 % 0.5-1.8 H code = 575) Steward/Stewardess Smoke Room ID - 6000Reticulocyte [id number] 12:58:00 Test Item Value Reference Range Interpretation Comments % Retic (test code = 1.8 % 0.5-1.8 66282-8) YARI (test code = YARI) Steward/Stewardess Smoke Room ID - 6000 Lab Interpretation (test Normal code = 76665-8) [facility] CenterPlatelet [id number] 12:58:00 Test Item Value Reference Range Interpretation Comments Platelets (test code = 138 150- 450 K/CU MM L 777-3) YARI (test code = YARI) Steward/Stewardess Smoke Room ID - [id number] Lab Interpretation (test Abnormal code = 49459-9) [facility] CenterPLATELET [id number] 12:58:00 Test Item Value Reference Range Interpretation Comments PLATELET COUNT (BEAKER) (test 138 K/CU MM 150-450 L code = 756) Steward/Stewardess Smoke Room ID - [id number] [id number] 12:58:00 Test Item Value Reference Range Interpretation Comments RETICULOCYTE COUNT PCT (BEAKER) (test 1.8 % 0.5-1.8 code = 575) Steward/Stewardess Smoke Room ID - [id number] NA-STAT [id number] 12:45:00 Test Item Value Reference Range Interpretation Comments SODIUM (BEAKER) (test code = 381) 140 meq/L 136-145 BLOOD GAS, [id number] 12:45:00 Test Item Value Reference Range Interpretation Comments PH ARTERIAL (BEAKER) (test code = 7.49 7.35-7.45 H 383) PCO2 ARTERIAL (BEAKER) (test code 38 mm Hg 35-45 = 384) PO2 ARTERIAL (BEAKER) (test code = 348 mm Hg 80-90 H 385) O2 SATURATION ARTERIAL (BEAKER) 99.8 % 96.0-97.0 H (test code = 386) HCO3 ARTERIAL (BEAKER) (test code 29 mmol/L 21-29 = 388) BASE EXCESS ARTERIAL (BEAKER) 4.8 mmol/L -2.0-3.0 H (test code = 387) PATIENT TEMPERATURE (BEAKER) (test 36.0 code = 1818) FIO2 (BEAKER) (test code = 1819) 100.0 GLUCOSE-STAT [id number] 12:45:00 Test Item Value Reference Range Interpretation Comments GLUCOSE RANDOM (BEAKER) (test code 179 mg/dL 70-110 H = 652) POTASSIUM-STAT [id number] 12:45:00 Test Item Value Reference Range Interpretation Comments POTASSIUM (BEAKER) (test code = 3.3 meq/L 3.6-5.5 L 379) HGB/HCT (H&H) - STAT [id number] 12:45:00 Test Item Value Reference Range Interpretation Comments HEMOGLOBIN (BEAKER) (test code = 9.8 GM/DL 13.0-16.8 L 410) HEMATOCRIT (BEAKER) (test code = 29.0 % 40.0-50.0 L 411) Peripheral Blood Smear - Hold [id number] 12:38:00 Test Item Value Reference Range Interpretation Comments Peripheral Smear Save (test code = save 1815) [facility] CenterPERIPHERAL B[facility] S[facility]AR - HOLD [id number] 12:38:00 Test Item Value Reference Range Interpretation Comments PERIPHERAL SMEAR SAVE (BEAKER) (test save code = 1815) PROTHROMBIN TIME/[id number] 12:26:00 Test Item Value Reference Range Interpretation Comments PROTIME (BEAKER) (test code = 17.0 seconds 11.9-14.2 H 759) INR (BEAKER) (test code = 370) 1.42 <=5.90 Effective 01/18/2019: PT Reference Range ChangeNew: 11.9-14.2 Previous: 11.7- 14.7RECOMMENDED COUMADIN/WARFARIN INR THERAPY RANGESSTANDARD DOSE: 2.0-3.0 Includes: PROPHYLAXIS for venous thrombosis, systemic embolization; TREATMENT for venous thrombosis and/or pulmonary embolus.HIGH RISK: Target INR is2.5-3.5 for patients wiht mechanical heart valves.[id number] 12:26:00 Test Item Value Reference Range Interpretation Comments FIBRINOGEN LEVEL (BEAKER) (test 254 mg/dl 225-434 code = 658) [id number] 12:26:00 Test Item Value Reference Range Interpretation Comments PARTIAL THROMBOPLASTIN TIME 34.9 seconds 22.5-36.0 (BEAKER) (test code = 760) THROMBOELASTOGRAPH (TEG)2020-08-13 12:21:00 Test Item Value Reference Range Interpretation Comments TEG ACTIVATED CLOTTING TIME 8.7 minutes 4.0-7.0 H (BEAKER) (test code = 1407) TEG FIBRINOGEN ACTIVITY (BEAKER) 68.8 degrees 61.0-73.0 (test code = 1408) TEG PLT. AGGREGATION (BEAKER) 63.4 MM 55.0-65.0 (test code = 1409) TEG FIBRINOLYSIS (BEAKER) (test 0.0 % 0.0-5.0 code = 1410) TGH ACTIVATED CLOTTING TIME 8.8 minutes 4.0-7.0 H (BEAKER) (test code = 1411) T[facility] FIBRINOGEN ACTIVITY (BEAKER) 68.2 degrees 61.0-73.0 (test code = 1412) TGH PLT. AGGREGATION (BEAKER) 54.8 MM 55.0-65.0 L (test code = 1413) TGH FIBRINOLYSIS (BEAKER) (test 0.1 % 0.0-5.0 code = 1414) PLATELET [id number] 12:11:00 Test Item Value Reference Range Interpretation Comments PLATELET COUNT (BEAKER) (test 171 K/CU MM 150-450 code = 756) Steward/Stewardess Smoke Room ID - [id number] NA-STAT [id number] 12:02:00 Test Item Value Reference Range Interpretation Comments SODIUM (BEAKER) (test code = 381) 142 meq/L 136-145 BLOOD GAS, [id number] 12:02:00 Test Item Value Reference Range Interpretation Comments PH ARTERIAL (BEAKER) (test code = 7.48 7.35-7.45 H 383) PCO2 ARTERIAL (BEAKER) (test code 40 mm Hg 35-45 = 384) PO2 ARTERIAL (BEAKER) (test code = 332 mm Hg 80-90 H 385) O2 SATURATION ARTERIAL (BEAKER) 99.8 % 96.0-97.0 H (test code = 386) HCO3 ARTERIAL (BEAKER) (test code 30 mmol/L 21-29 H = 388) BASE EXCESS ARTERIAL (BEAKER) 5.6 mmol/L -2.0-3.0 H (test code = 387) PATIENT TEMPERATURE (BEAKER) (test 36.5 code = 1818) FIO2 (BEAKER) (test code = 1819) 100.0 POTASSIUM-STAT [id number] 12:02:00 Test Item Value Reference Range Interpretation Comments POTASSIUM (BEAKER) (test code = 3.2 meq/L 3.6-5.5 L 379) GLUCOSE-STAT [id number] 12:02:00 Test Item Value Reference Range Interpretation Comments GLUCOSE RANDOM (BEAKER) (test code 166 mg/dL 70-110 H = 652) HGB/HCT (H&H) - STAT [id number] 12:02:00 Test Item Value Reference Range Interpretation Comments HEMOGLOBIN (BEAKER) (test code = 8.1 GM/DL 13.0-16.8 L 410) HEMATOCRIT (BEAKER) (test code = 24.0 % 40.0-50.0 L 411) CALCIUM, [id number] 12:01:00 Test Item Value Reference Range Interpretation Comments CALCIUM IONIZED (BEAKER) (test 1.12 mmol/L 1.12-1.27 code = 698) PH, BLOOD (BEAKER) (test code = 7.48 1810) [id number] 11:42:00 Test Item Value Reference Range Interpretation Comments PARTIAL THROMBOPLASTIN TIME 34.0 seconds 22.5-36.0 (BEAKER) (test code = 760) PROTHROMBIN [id number] 11:41:00 Test Item Value Reference Range Interpretation Comments PROTIME (BEAKER) (test code = 18.6 seconds 11.9-14.2 H 759) INR (BEAKER) (test code = 370) 1.61 <=5.90 Effective 01/18/2019: PT Reference Range ChangeNew: 11.9-14.2 Previous: 11.7- 14.7RECOMMENDED COUMADIN/WARFARIN INR THERAPY RANGESSTANDARD DOSE: 2.0-3.0 Includes: PROPHYLAXIS for venous thrombosis, systemic embolization; TREATMENT for venous thrombosis and/or pulmonary embolus.HIGH RISK: Target INR is2.5-3.5 for patients wiht mechanical heart valves.[id number] 11:41:00 Test Item Value Reference Range Interpretation Comments FIBRINOGEN LEVEL (BEAKER) (test 255 mg/dl 225-434 code = 658) HEMOGLOBIN [id number] 11:34:00 Test Item Value Reference Range Interpretation Comments HEMOGLOBIN A1C (BEAKER) (test code = 4.9 % 4.3-6.1 368) PLATELET [id number] 11:08:00 Test Item Value Reference Range Interpretation Comments PLATELET COUNT (BEAKER) 89 K/CU MM 150-450 L POST TRANSFUSION (test code = 756) [facility] ID - [id number] GAS, [id number] 11:02:00 Test Item Value Reference Range Interpretation Comments PH ARTERIAL (BEAKER) (test code = 7.48 7.35-7.45 H 383) PCO2 ARTERIAL (BEAKER) (test code 43 mm Hg 35-45 = 384) PO2 ARTERIAL (BEAKER) (test code = 252 mm Hg 80-90 H 385) O2 SATURATION ARTERIAL (BEAKER) 99.6 % 96.0-97.0 H (test code = 386) HCO3 ARTERIAL (BEAKER) (test code 32 mmol/L 21-29 H = 388) BASE EXCESS ARTERIAL (BEAKER) 7.0 mmol/L -2.0-3.0 H (test code = 387) PATIENT TEMPERATURE (BEAKER) (test 35.5 code = 1818) FIO2 (BEAKER) (test code = 1819) 100.0 POTASSIUM-STAT [id number] 11:02:00 Test Item Value Reference Range Interpretation Comments POTASSIUM (BEAKER) (test code = 3.4 meq/L 3.6-5.5 L 379) GLUCOSE-STAT [id number] 11:02:00 Test Item Value Reference Range Interpretation Comments GLUCOSE RANDOM (BEAKER) (test code 140 mg/dL 70-110 H = 652) HGB/HCT (H&H) - STAT [id number] 11:02:00 Test Item Value Reference Range Interpretation Comments HEMOGLOBIN (BEAKER) (test code = 7.5 GM/DL 13.0-16.8 L 410) HEMATOCRIT (BEAKER) (test code = 22.0 % 40.0-50.0 L 411) SODIUM NA-STAT [id number] 11:01:00 Test Item Value Reference Range Interpretation Comments SODIUM (BEAKER) (test code = 381) 140 meq/L 136-145 [id number] 10:59:00 Test Item Value Reference Range Interpretation Comments PARTIAL THROMBOPLASTIN TIME 38.7 seconds 22.5-36.0 H (BEAKER) (test code = 760) PROTHROMBIN TIME/[id number] 10:58:00 Test Item Value Reference Range Interpretation Comments PROTIME (BEAKER) (test code = 21.1 seconds 11.9-14.2 H 759) INR (BEAKER) (test code = 370) 1.88 <=5.90 Effective 01/18/2019: PT Reference Range ChangeNew: 11.9-14.2 Previous: 11.7- 14.7RECOMMENDED COUMADIN/WARFARIN INR THERAPY RANGESSTANDARD DOSE: 2.0-3.0 Includes: PROPHYLAXIS for venous thrombosis, systemic embolization; TREATMENT for venous thrombosis and/or pulmonary embolus.HIGH RISK: Target INR is2.5-3.5 for patients wiht mechanical heart valves.[id number] 10:58:00 Test Item Value Reference Range Interpretation Comments FIBRINOGEN LEVEL (BEAKER) (test 250 mg/dl 225-434 code = 658) PLATELET [id number] 10:47:00 Test Item Value Reference Range Interpretation Comments PLATELET COUNT (BEAKER) (test code 7 K/CU MM 150-450 LL = 756) Steward/Stewardess Smoke Room ID - [id number] ID - [id number], [id number] 10:40:00 Test Item Value Reference Range Interpretation Comments CALCIUM IONIZED (BEAKER) (test 1.09 mmol/L 1.12-1.27 L code = 698) PH, BLOOD (BEAKER) (test code = 7.46 1810) BLOOD GAS, [id number] 10:40:00 Test Item Value Reference Range Interpretation Comments PH ARTERIAL (BEAKER) (test code = 7.48 7.35-7.45 H 383) PCO2 ARTERIAL (BEAKER) (test code 45 mm Hg 35-45 = 384) PO2 ARTERIAL (BEAKER) (test code = 278 mm Hg 80-90 H 385) O2 SATURATION ARTERIAL (BEAKER) 99.7 % 96.0-97.0 H (test code = 386) HCO3 ARTERIAL (BEAKER) (test code 33 mmol/L 21-29 H = 388) BASE EXCESS ARTERIAL (BEAKER) 8.1 mmol/L -2.0-3.0 H (test code = 387) PATIENT TEMPERATURE (BEAKER) (test 36.0 code = 1818) FIO2 (BEAKER) (test code = 1819) 100.0 GLUCOSE-STAT [id number] 10:40:00 Test Item Value Reference Range Interpretation Comments GLUCOSE RANDOM (BEAKER) (test code 136 mg/dL 70-110 H = 652) HGB/HCT (H&H) - STAT [id number] 10:40:00 Test Item Value Reference Range Interpretation Comments HEMOGLOBIN (BEAKER) (test code = 8.0 GM/DL 13.0-16.8 L 410) HEMATOCRIT (BEAKER) (test code = 24.0 % 40.0-50.0 L 411) SODIUM NA-STAT [id number] 10:38:00 Test Item Value Reference Range Interpretation Comments SODIUM (BEAKER) (test code = 381) 139 meq/L 136-145 POTASSIUM-STAT [id number] 10:38:00 Test Item Value Reference Range Interpretation Comments POTASSIUM (BEAKER) (test code = 3.6 meq/L 3.6-5.5 379) BLOOD GAS, [id number] 09:51:00 Test Item Value Reference Range Interpretation Comments PH ARTERIAL (BEAKER) (test code = 7.49 7.35-7.45 H 383) PCO2 ARTERIAL (BEAKER) (test code 42 mm Hg 35-45 = 384) PO2 ARTERIAL (BEAKER) (test code = 302 mm Hg 80-90 H 385) O2 SATURATION ARTERIAL (BEAKER) 99.7 % 96.0-97.0 H (test code = 386) HCO3 ARTERIAL (BEAKER) (test code 32 mmol/L 21-29 H = 388) BASE EXCESS ARTERIAL (BEAKER) 7.1 mmol/L -2.0-3.0 H (test code = 387) PATIENT TEMPERATURE (BEAKER) (test 35.1 code = 1818) FIO2 (BEAKER) (test code = 1819) 70.0 GLUCOSE-STAT [id number] 09:51:00 Test Item Value Reference Range Interpretation Comments GLUCOSE RANDOM (BEAKER) (test code 133 mg/dL 70-110 H = 652) HGB/HCT (H&H) - STAT [id number] 09:51:00 Test Item Value Reference Range Interpretation Comments HEMOGLOBIN (BEAKER) (test code = 8.3 GM/DL 13.0-16.8 L 410) HEMATOCRIT (BEAKER) (test code = 24.0 % 40.0-50.0 L 411) SODIUM NA-STAT [id number] 09:50:00 Test Item Value Reference Range Interpretation Comments SODIUM (BEAKER) (test code = 381) 140 meq/L 136-145 POTASSIUM-STAT [id number] 09:50:00 Test Item Value Reference Range Interpretation Comments POTASSIUM (BEAKER) (test code = 4.0 meq/L 3.6-5.5 379) BLOOD GAS, [id number] 09:26:00 Test Item Value Reference Range Interpretation Comments PH ARTERIAL (BEAKER) (test code = 7.52 7.35-7.45 H 383) PCO2 ARTERIAL (BEAKER) (test code 38 mm Hg 35-45 = 384) PO2 ARTERIAL (BEAKER) (test code = 362 mm Hg 80-90 H 385) O2 SATURATION ARTERIAL (BEAKER) 99.8 % 96.0-97.0 H (test code = 386) HCO3 ARTERIAL (BEAKER) (test code 32 mmol/L 21-29 H = 388) BASE EXCESS ARTERIAL (BEAKER) 6.7 mmol/L -2.0-3.0 H (test code = 387) PATIENT TEMPERATURE (BEAKER) (test 31.1 code = 1818) FIO2 (BEAKER) (test code = 1819) 70.0 GLUCOSE-STAT [id number] 09:26:00 Test Item Value Reference Range Interpretation Comments GLUCOSE RANDOM (BEAKER) (test code 151 mg/dL 70-110 H = 652) HGB/HCT (H&H) - STAT [id number] 09:26:00 Test Item Value Reference Range Interpretation Comments HEMOGLOBIN (BEAKER) (test code = 6.8 GM/DL 13.0-16.8 L 410) HEMATOCRIT (BEAKER) (test code = 20.0 % 40.0-50.0 L 411) SODIUM NA-STAT [id number] 09:25:00 Test Item Value Reference Range Interpretation Comments SODIUM (BEAKER) (test code = 381) 140 meq/L 136-145 POTASSIUM-STAT [id number] 09:25:00 Test Item Value Reference Range Interpretation Comments POTASSIUM (BEAKER) (test code = 4.1 meq/L 3.6-5.5 379) BILL, [id number] 08:31:00 Test Item Value Reference Range Interpretation Comments ABO Grouping (test code = 2588) O Rh Factor (test code = 2589) [facility]33Kristy Khan MD 08/13/2020 10:55 AMTEE Date: 08/13/2020 8:21 AM Sex: Male Location: OR Requesting Physician: Stewart Arenas MD Examiner: Kristy Khan MDJacobs, Daniel Aaron Intubated Sedated Patient screened for esoph disease: Yes Insertion: easy Probe Type: multiplane Modalities: 2D,CFM, CWD and PWD Pre Intervention Summary: Aorta: No aneurysm, no dissection, no mobile plaques. Small pericardial effusion. Large left sided pleural effusion. AV: trileaflet morphology, No aortic stenosis, No aortic regurgitationLV: Normal chamber size , No LVH, normal systolic function (EF 55% by Simpsons assessment), No RWMA, no thrombusMV: normal morphology, Trace mitral regurgitation, No mitral stenosisLA: no EMILY thrombus, normal size and functionPV: limited visualizationRV: Normal sized chamber, Normal function TAPSE 28mm, no thrombusTV: normal morphology, No tricuspid regurgitationRA: nothrombus No PFO by color dopper flow All findings communicated to surgical team. Post Intervention Summary: SP ACB not on inotropyLVEF 60-65% via Simpsons. No SAMNo pericardial effusion. Large left sided pleural effusion. No new aortic pathology. Valves as previously described. Exam otherwise as previously described.[facility] [id number] 07:56:00 Test Item Value Reference Range Interpretation Comments GLUCOSE RANDOM (BEAKER) (test code = 93 mg/dL 70-110 652) SODIUM NA-STAT [id number] 07:56:00 Test Item Value Reference Range Interpretation Comments SODIUM (BEAKER) (test code = 381) 141 meq/L 136-145 BLOOD GAS, [id number] 07:56:00 Test Item Value Reference Range Interpretation Comments PH ARTERIAL (BEAKER) (test code = 7.48 7.35-7.45 H 383) PCO2 ARTERIAL (BEAKER) (test code 47 mm Hg 35-45 H = 384) PO2 ARTERIAL (BEAKER) (test code = 202 mm Hg 80-90 H 385) O2 SATURATION ARTERIAL (BEAKER) 99.4 % 96.0-97.0 H (test code = 386) HCO3 ARTERIAL (BEAKER) (test code 35 mmol/L 21-29 H = 388) BASE EXCESS ARTERIAL (BEAKER) 9.5 mmol/L -2.0-3.0 H (test code = 387) PATIENT TEMPERATURE (BEAKER) (test 36.0 code = 1818) FIO2 (BEAKER) (test code = 1819) 100.0 POTASSIUM-STAT [id number] 07:56:00 Test Item Value Reference Range Interpretation Comments POTASSIUM (BEAKER) (test code = 2.8 meq/L 3.6-5.5 L 379) HGB/HCT (H&H) - STAT [id number] 07:56:00 Test Item Value Reference Range Interpretation Comments HEMOGLOBIN (BEAKER) (test code = 10.1 GM/DL 13.0-16.8 L 410) HEMATOCRIT (BEAKER) (test code = 30.0 % 40.0-50.0 L 411) CALCIUM, [id number] 07:55:00 Test Item Value Reference Range Interpretation Comments CALCIUM IONIZED (BEAKER) (test 1.13 mmol/L 1.12-1.27 code = 698) PH, BLOOD (BEAKER) (test code = 7.46 1810) Type and screen, [id number] 07:26:00 Test Item Value Reference Range Interpretation Comments Ab Scrn (test code = NEGATIVE entered manually echo 1 890-4) [facility] CenterCOMPREHENSIVE METABOLIC [id number] 07:17:00 Test Item Value Reference Range Interpretation Comments TOTAL PROTEIN 6.2 gm/dL 6.0-8.3 (BEAKER) (test code = 770) ALBUMIN (BEAKER) 3.3 g/dL 3.5-5.0 L (test code = 1145) ALKALINE PHOSPHATASE 112 U/L 40-150 (BEAKER) (test code = 346) BILIRUBIN TOTAL 0.6 mg/dL 0.2-1.2 (BEAKER) (test code = 377) SODIUM (BEAKER) (test 141 meq/L 136-145 code = 381) POTASSIUM (BEAKER) 3.5 meq/L 3.5-5.1 (test code = 379) CHLORIDE (BEAKER) 100 meq/L 98-107 (test code = 382) CO2 (BEAKER) (test 30 meq/L 22-29 H code = 355) BLOOD UREA NITROGEN 22 mg/dL 7-21 H (BEAKER) (test code = 354) CREATININE (BEAKER) 5.11 mg/dL 0.57-1.25 H (test code = 358) GLUCOSE RANDOM 95 mg/dL 70-105 (BEAKER) (test code = 652) CALCIUM (BEAKER) 8.4 mg/dL 8.4-10.2 (test code = 697) AST (SGOT) (BEAKER) 13 U/L 5-34 (test code = 353) ALT (SGPT) (BEAKER) 7 U/L 6-55 (test code = 347) EGFR (BEAKER) (test 11 mL/min/1.73 ESTIMA ZOYA GFR IS code = 1092) sq m NOT ACCURATE CREATININE CLEARANCE IN PREDICTING GLOMERULAR FILTRATION RATE . ESTIMATED GFR I S NOT APPLICABLE FOR DIALYSIS PATIEN TS. Steward/Stewardess Smoke Room ID - PIAYA [id number] 07:09:00 Test Item Value Reference Range Interpretation Comments MAGNESIUM (BEAKER) (test code = 2.1 mg/dL 1.6-2.6 627) Steward/Stewardess Smoke Room ID - PIAYA LLIPID [id number] 07:09:00 Test Item Value Reference Range Interpretation Comments TRIGLYCERIDES (BEAKER) (test code = 57 mg/dL 540) CHOLESTEROL (BEAKER) (test code = 97 mg/dL 631) HDL CHOLESTEROL (BEAKER) (test code 37 mg/dL = 976) LDL CHOLESTEROL CALCULATED (BEAKER) 49 mg/dL (test code = 633) Triglyceride Reference Range: Low Risk <150 Borderline 150-199 High Risk 200-499 Very High Risk >=500Cholesterol Reference Range: Low Risk <200 Borderline 200-239 High Risk >240HDL Cholesterol Reference Range: Low Risk >=60 High Risk <40LDL Cholesterol Reference Range: Optimal <100 Near Optimal 100-129 Borderline 130-159 High 160-189 Very High >=190 Steward/Stewardess Smoke Room ID - [id number] 07:01:00 Test Item Value Reference Range Interpretation Comments PARTIAL THROMBOPLASTIN TIME 30.9 seconds 22.5-36.0 (BEAKER) (test code = 760) PROTHROMBIN [id number] 07:00:00 Test Item Value Reference Range Interpretation Comments PROTIME (BEAKER) (test code = 14.2 seconds 11.9-14.2 759) INR (BEAKER) (test code = 370) 1.14 <=5.90 Effective 01/18/2019: PT Reference Range ChangeNew: 11.9-14.2 Previous: 11.7- 14.7RECOMMENDED COUMADIN/WARFARIN INR THERAPY RANGESSTANDARD DOSE: 2.0-3.0 Includes: PROPHYLAXIS for venous thrombosis, systemic embolization; TREATMENT for venous thrombosis and/or pulmonary embolus.HIGH RISK: Target INR is2.5-3.5 for patients wiht mechanical heart valves.RAD, CHEST, 1 VIEW, NON [id number] 07:00:00Reason for exam:->pre opShould this be performed at the bedside?->Yes[facility] : 1955 Sex: MFINAL REPORT History: Preoperative evaluation, surgery unspecified. Comparison: None. Findings: A single view of the chest is submitted. The examination is limited by low lung volumes. There are moderate bilateral pleural effusions. Subjacent opacity in the mid and lower lungs may reflect some combination of atelectasis and edema but pneumonitis should be excluded clinica lly. The cardiac silhouette appears prominent in size, however, it is partially obscured by adjacentopacification in the mid and lower lungs. There is central vascular engorgement. Calcified lymph nodes are present in the bilateral juwan. There is no pneumothorax. The patient has undergone previous left shoulder arthroplasty. Degenerative changes are present in the spine and right shoulder. Signed: Rich Gabriel MDReport Verified Date/Time: 08/13/2020 07:00:58 CBC W/PLT COUNT & AUTO [id number] 06:48:00 Test Item Value Reference Range Interpretation Comments WHITE BLOOD CELL COUNT (BEAKER) 6.4 K/ L 3.5-10.5 (test code = 775) RED BLOOD CELL COUNT (BEAKER) 3.65 M/ L 4.63-6.08 L (test code = 761) HEMOGLOBIN (BEAKER) (test code = 11.0 GM/DL 13.7-17.5 L 410) HEMATOCRIT (BEAKER) (test code = 35.3 % 40.1-51.0 L 411) MEAN CORPUSCULAR VOLUME (BEAKER) 96.7 fL 79.0-92.2 H (test code = 753) MEAN CORPUSCULAR HEMOGLOBIN 30.1 pg 25.7-32.2 (BEAKER) (test code = 751) MEAN CORPUSCULAR HEMOGLOBIN CONC 31.2 GM/DL 32.3-36.5 L (BEAKER) (test code = 752) RED CELL DISTRIBUTION WIDTH 15.6 % 11.6-14.4 H (BEAKER) (test code = 412) PLATELET COUNT (BEAKER) (test code 43 K/CU MM 150-450 L = 756) MEAN PLATELET VOLUME (BEAKER) 12.2 fL 9.4-12.4 (test code = 754) NUCLEATED RED BLOOD CELLS (BEAKER) 0 /100 WBC 0-0 (test code = 413) NEUTROPHILS RELATIVE PERCENT 48 % (BEAKER) (test code = 429) LYMPHOCYTES RELATIVE PERCENT 31 % (BEAKER) (test code = 430) MONOCYTES RELATIVE PERCENT 14 % (BEAKER) (test code = 431) EOSINOPHILS RELATIVE PERCENT 5 % (BEAKER) (test code = 432) BASOPHILS RELATIVE PERCENT 2 % (BEAKER) (test code = 437) NEUTROPHILS ABSOLUTE COUNT 3.07 K/ L 1.78-5.38 (BEAKER) (test code = 670) LYMPHOCYTES ABSOLUTE COUNT 1.96 K/ L 1.32-3.57 (BEAKER) (test code = 414) MONOCYTES ABSOLUTE COUNT (BEAKER) 0.90 K/ L 0.30-0.82 H (test code = 415) EOSINOPHILS ABSOLUTE COUNT 0.29 K/ L 0.04-0.54 (BEAKER) (test code = 416) BASOPHILS ABSOLUTE COUNT (BEAKER) 0.11 K/ L 0.01-0.08 H (test code = 417) IMMATURE GRANULOCYTES-RELATIVE 0 % 0-1 PERCENT (BEAKER) (test code = 2801) POCT-GLUCOSE [id number] 06:14:00 Test Item Value Reference Range Interpretation Comments POC-GLUCOSE METER 81 mg/dL 70-110 : TESTED A T [facility] 6720 (BEAKER) (test code = GABRIEL BORJA [place], 1538) [address]: Steward/Stewardess Smoke Room/Techni radha ID = [id number] for JORD AN, LACRYSTAL SARS-COV2/RT-PCR ([facility])2020-08-08 23:08:00 Test Item Value Reference Range Interpretation Comments SARS-COV2/RT-PCR (test Negative Not Detected, Negative, code = 3834875) See external report for linked test SARS-COV-2 PERFORMING LAB [facility] RAJAT (test code = 9193430) Negative result for this test determines that SARS-CoV-2 RNA was not present in the specimen above the Limit of Detection (LOD). However, Negative results do not preclude SARS-CoV-2 infection and should not be used as the sole basis for treatment or patient management decisions. Negative results mustbe combined with clinical observations, patient history, and epidemiological information. A false negative result may occur if a specimen is improperly collected, transported or handled. A false negative result should be considered if patient's recent exposures or clinical presentation indicate that COVID-19 (SARS-CoV-2) is likely and diagnostic tests for other causes of illness are negative. Re-testing should be considered in cases of suspected false negatives.The limit of detection for this assay is 100 copies/mL.This SARS CoV-2 test is a real-time RT-PCR test intended for the qualitative detection of nucleic acid from SARS-CoV-2 in a nasopharyngeal swab specimen collected from individuals susp ected of COVID-19 by their healthcare provider.This test has not been Food and Drug [...] is revoked under Section 564(g) of the Act.Testing was performed using the Toney SARS-CoV-2 assay.Fact Sheet for Healthcare Providers:https://www.molecular.toney/david/ AY_WCUJ-JnT-0_POX_Rcet_Lcogf_65-464619.pdfFact Sheet for Healthcare Patients:https://www.molecular.ab radha/david/LM_XTQO-JiI-3_Kwwhkms_Ljkl_Mbntx_BS_83-019546S3.pdfPerforming Laboratory:[facility] [place] [address] CHEM [id number] 19:23:0035[facility] AreaCHEM HIAFP2733-06-31 19:23:31161 [facility]annCHEM TTONV7356-28-57 19:23:57287Tfezoekv HermannCHEM PANEL 2017-06-01 19:23:004.6[facility] HermannCHEM SAVIA3788-53-25 19:23:35670Dfhkgvfh HermannCHEM KLNOS5060-73-60 19:23:0011.6[facility]annCHEM MRGXR2934-14-16 19:23:0034.0[facility] RtutoymJPTIYXHBHC2765-58-56 15:52:0012.2[facility] AGHDZJFKLG2439-18-81 15:52:0036.0[facility] CvymjzeWJNGAJBVDG6390-70-16 15:52:0033 [facility] EhoyzzhKKVGFOFVSG3764-65-01 15:52:19385Hlygerjn HermannHEMATOLOGY 2017-06-01 15:52:35856Hwmgurvp HeeuiylCCYBTVYDPP4794-75-94 15:52:004.3[facility] FbyjxyjUAFZCZVYBN5712-52-22 15:52:12450Gwpspbaj HermannCHEM EPLJM0819-47-99 20:33:0011[facility] HermannCHEM RDXIT1810-53-87 20:33:0010.8[facility] HermannCHEM PFMSC7678-31-63 20:33:009.2[facility] HermannCHEM QVCHQ2287-68-32 20:33:0035 [facility]annCHEM WGCYF0947-12-76 20:33:005.40[facility] HermannCHEM PANEL 2017-03-04 20:33:08493Athmocoy HermannCHEM NADAI2608-43-74 20:33:10396Fbxdvarj HermannCHEM EUBGE8823-88-56 20:33:003.8[facility] HermannCHEM LXUKM1443-40-57 20:33:0097[facility] HermannCHEM DABJY3730-23-73 20:33:0034[facility] YCEUNSQLRT6562-54-37 20:33:005.4[facility] FnfrfqqZFZTONLMNI4995-08-23 20:33:000.5 [facility] GgqsaroMKBYHYOONB9993-15-36 20:33:001.1[facility] HermannHEMATOLOGY 2017-03-04 20:33:003.4[facility] MibkukuZFDOTNDRCQ9207-30-53 20:33:000.1[facility] WngiuamKIRAKELMKR9145-21-65 20:33:000.4[facility] GgjkrlxIBYKWFBFCP3562-71-89 20:33:0052.7[facility] TiptkubFSYYKIQTAF1387-79-75 20:33:0032.9[facility] RZJBRSOVNM7680-40-29 20:33:0010.3[facility] BpvpfoiXPXACQPFHS2903-39-42 20:33:00 3.6[facility] RbblaorXJJKCYZWZY1752-03-35 20:33:0091.1[facility] HermannHEMATOLOGY 2017-03-04 20:33:004.52[facility] QmhlysoETZPDRLHRW6809-80-24 20:33:0013.5[facility] AintjntRWPZKQLRWB1876-86-26 20:33:00 Test Item Value Reference Range Interpretation Comments MCH (test code = MCH) 29.9 pg 27.0-31.0 [facility] UchafzjZULVJNYOAC6713-75-07 20:33:0041.2[facility] HermannHEMATOLOGY 2017-03-04 20:33:008.1[facility] ZycshnvRPYBFPLVJI6991-31-50 20:33:0032.8[facility] JmdwsjaSBTTWRVUNG0574-00-70 20:33:0014.1[facility] QngtsxfVNQNEZKUYA9761-88-63 20:33:11694Djjukwmg AjlsaswPOKDQJRUWL6721-63-43 20:33:0010.3[facility] XFXOXWXOUR4375-53-22 15:26:0013.9[facility] CatrvyzWHPDLZKPFZ6906-22-23 15:26:00 126[facility] EyibtptXMMVJCMCZC3491-98-70 15:26:0043[facility] HermannHEMATOLOGY 2017-02-26 15:26:0041.0[facility] JokgoozQHINICLDZN6273-48-20 15:26:004.1[facility] KsustusZPIWLULQRL8270-76-31 15:26:37723Wkoibikt WmxmowuFQKERQQJMK7896-70-05 15:26:03834Ifoigdos BgyntcmNTXDWCVUSCUS9632-16-39 11:43:25093Oclgybpz Colin VMAUATXMPHFH9483-22-24 11:43:0046[facility] AgywbfzVWQELWWSXHZF1899-54-66 11:43:00 103[facility] CfseuikZVGWGYZYWDTJ8888-87-12 11:43:004.3[facility] OYGTDOEZQJIP4102-43-56 11:43:41358Jmdytblx ZhocfajAFDKHDBZXAXF7284-39-82 11:43:0015.6[facility] NtbrjfnTENRCVTUYFFZ0495-09-91 11:43:0046.0[facility] BLOOD BANK TWYPQPQ0910-03-68 15:22:00Negative (02/24/17 10:22 AM)[facility] AFHQLGDAHRYE3517-03-01 15:22:0013.1[facility] JmvcijuEARUUCRZXFAW5350-66-15 15:22:0011[facility] TktzppvYQUHLKYRLELE8371-60-73 15:22:009.3[facility] QSKGEOFMTAWS1516-32-11 15:22:22509Bieywmzj YrsseptDRTWRFEQBSQJ9398-68-31 15:22:0028[facility] NxxgckfVRSATCUHCEBZ5436-81-25 15:22:38702Wswnktrh Colin FVRBAJLNDYZN5207-45-26 15:22:004.1[facility] QcabooiILZLFUNFYCEB4871-81-56 15:22:005.30[facility] AwetvubRVUMGLESLJSD5124-24-29 15:22:0047[facility] UQNUEMCEPYGJ9811-02-02 15:22:47546Dwzfhzsm NedixgvQEQJIBFIHX4085-73-55 15:22:00 Test Item Value Reference Range Interpretation Comments PT (test code = PT) 12.7 s 12.0-14.7 [facility] SuhiobdESRHKJMVOG9748-43-89 15:22:000.93[facility] HermannHEMATOLOGY 2017-02-24 15:22:00 Test Item Value Reference Range Interpretation Comments PTT (test code = PTT) 28.3 s 22.9-35.8 Memorial MtdnxmkGGKPFCXDSF6032-41-02 15:22:008.7[facility] HermannHEMATOLOGY 2017-02-24 15:22:20714Unazcutj FpzcirzKXJBMFPRHN7456-19-77 15:22:0032.9[facility] EzvmrkePOFKJMSRCX5702-29-92 15:22:0014.7[facility] FdnrgomBBDBSLBSJS8617-59-78 15:22:004.73[facility] GyytevdIZBHPAUZXY0668-81-17 15:22:0014.1[facility] OUGQWIXTIM6131-10-78 15:22:0012.8[facility] KhnselrMOEBLZUECT1001-88-05 15:22:00 90.2[facility] SfqchnrHOJXLONENR0300-74-01 15:22:0042.7[facility] HermannHEMATOLOGY 2017-02-24 15:22:00 Test Item Value Reference Range Interpretation Comments MCH (test code = MCH) 29.7 pg 27.0-31.0 [facility] NffqjaySALMWZSCIX4767-23-66 15:22:000.1[facility] HermannHEMATOLOGY 2017-02-24 15:22:008.0[facility] WxdxzjtWQFIETZUZH1061-10-77 15:22:001.0[facility] MlskhusNYTUBVDCVA5281-50-58 15:22:007.6[facility] XioqvdvUZDFMEQOSU5592-34-51 15:22:003.4[facility] ErjtdhuUOHREGSZEM1341-10-43 15:22:003.6[facility] VELYAAVUQD4165-07-55 15:22:0028.2[facility] QolqzdpPPWZXMZAFE4439-40-72 15:22:00 0.4[facility] HdighryQKQNYZHYHK7423-93-17 15:22:001.0[facility] HermannHEMATOLOGY 2017-02-24 15:22:0059.4[facility] HermannSPECIAL TFBUCGEZH7869-16-43 15:22:008.0 [facility]
--- NOTE | 2020-08-24 17:21 | RAD REPORT ---
EXAM DESCRIPTION: Donaldo Single View08/24/2020 5:00 pm CLINICAL HISTORY: Cough COMPARISON: July 2020 FINDINGS: Mild bilateral pulmonary opacities probably mild interstitial pulmonary edema The heart is mildly enlarged. Pacemaker leads are in place. Right hemidiaphragm is elevated. Small to moderate pleural effusion suspected
[2020-08-24 17:31] LABS: Absolute Lymphocytes (CBC) 1.8 K/uL (0.7-4.9); Basophils % 0.3 % (0-1.3); Hematocrit 33.7 % (39.6-49.0); Lymphocytes % 17.9 % (15.3-44.8)
[2020-08-24 18:50] LABS: Albumin 2.1 g/dL (3.4-5.0); Bilirubin Total 0.4 mg/dL (0.2-1.0); Protein, Total 5.7 g/dL (6.4-8.2)
--- NOTE | 2020-08-24 19:00 | EDPHYS ---
Physician Documentation [facility] Name: Richard Rodriguez Age: 65 yrs Sex: Male : 1955 Arrival Date: 08/24/2020 Time: 14:11 Bed 23 Private MD: ALONDRA Physician Doyle Chauhan HPI: 08/24 16:26 This 65 yrs old Male presents to ER via Ambulatory with complaints of Post fab Surgical Bleeding. 16:26 chest yube draining, tube out on 08/19. Present symptoms: serosangeous draining. Onset: fab The symptoms/episode began/occurred this morning. Historical: - Allergies: 14:17 No Known Allergies; ss - PMHx: 14:17 CVA; Gout; Hypertension; Hyperlipidemia; Diabetes - IDDM; Myocardial infarction; Sleep ss Apnea; Dialysis; - PSHx: 14:17 L knee repair; L shoulder replaced; double CABG; ss - Immunization history:: Adult Immunizations up to date. - Social history:: Smoking status: Patient denies any tobacco usage or history of. - Family history:: not pertinent. ROS: 16:26 Constitutional: Negative for fever, chills, and weight loss, Eyes: Negative for injury, fab pain, redness, and discharge, ENT: Negative for injury, pain, and discharge, Neck: Negative for injury, pain, and swelling, Cardiovascular: Negative for chest pain, palpitations, and edema, Respiratory: Negative for shortness of breath, cough, wheezing, and pleuritic chest pain, Back: Negative for injury and pain, : Negative for injury, bleeding, discharge, and swelling, MS/Extremity: Negative for injury and deformity, Skin: Negative for injury, rash, and discoloration, Neuro: Negative for headache, weakness, numbness, tingling, and seizure, Psych: Negative for depression, anxiety, suicide ideation, homicidal ideation, and hallucinations, Allergy/Immunology: Negative for hives, rash, and allergies, Endocrine: Negative for neck swelling, polydipsia, polyuria, polyphagia, and marked weight changes, Hematologic/Lymphatic: Negative for swollen nodes, abnormal bleeding, and unusual bruising. 16:26 Abdomen/GI: Positive for of the left upper quadrant, left lateral chest tube site draining. Exam: 16:26 Constitutional: This is a well developed, well nourished patient who is awake, alert, fab and in no acute distress. Head/Face: Normocephalic, atraumatic. Eyes: Pupils equal round and reactive to light, extra-ocular motions intact. Lids and lashes normal. Conjunctiva and sclera are non-icteric and not injected. Cornea within normal limits. Periorbital areas with no swelling, redness, or edema. ENT: Nares patent. No nasal discharge, no septal abnormalities noted. Tympanic membranes are normal and external auditory canals are clear. Oropharynx with no redness, swelling, or masses, exudates, or evidence of obstruction, uvula midline. Mucous membranes moist. Neck: Trachea midline, no thyromegaly or masses palpated, and no cervical lymphadenopathy. Supple, full range of motion without nuchal rigidity, or vertebral point tenderness. No Meningismus. Chest/axilla: Normal chest wall appearance and motion. Nontender with no deformity. No lesions are appreciated. Cardiovascular: Regular rate and rhythm with a normal S1 and S2. No gallops, murmurs, or rubs. Normal PMI, no JVD. No pulse deficits. Respiratory: Lungs have equal breath sounds bilaterally, clear to auscultation and percussion. No rales, rhonchi or wheezes noted. No increased work of breathing, no retractions or nasal flaring. Back: No spinal tenderness. No costovertebral tenderness. Full range of motion. Male : Normal genitalia with no discharge or lesions. Skin: Warm, dry with normal turgor. Normal color with no rashes, no lesions, and no evidence of cellulitis. MS/ Extremity: Pulses equal, no cyanosis. Neurovascular intact. Full, normal range of motion. Neuro: Awake and alert, GCS 15, oriented to person, place, time, and situation. Cranial nerves II-XII grossly intact. Motor strength 5/5 in all extremities. Sensory grossly intact. Cerebellar exam normal. Normal gait. Psych: Awake, alert, with orientation to person, place and time. Behavior, mood, and affect are within normal limits. 16:26 Abdomen/GI: Inspection: abdomen appears normal, Bowel sounds: normal, Palpation: abdomen is soft and non-tender, Liver: no appreciated palpable abnormalities, Hernia: not appreciated. Vital Signs: 14:13 BP 136 / 67; Pulse 74; Resp 22; Temp 98.2(TE); Pulse Ox 97% on R/A; Weight 92.99 kg; ss Height 5 ft. 10 in. (177.80 cm); Pain 0/10; 16:12 BP 149 / 72; Pulse 78; Resp 16; Pulse Ox 96% on R/A; sv 17:30 BP 152 / 75; Pulse 74; Resp 16; Pulse Ox 96% on R/A; sv 14:13 Body Mass Index 29.41 (92.99 kg, 177.80 cm) ss MDM: 15:33 Patient medically screened. fab 16:28 Differential diagnosis: non-specific abd pain. Data reviewed: vital signs, nurses [facility] notes, EMS record, lab test result(s), radiologic studies. Data interpreted: patient monitor: rate is 78 beats/min, rhythm is regular, Pulse oximetry: is not applicable for this patient encounter. Test interpretation: by ED physician or midlevel provider: plain radiologic studies. Counseling: I had a detailed discussion with the patient and/or guardian regarding: the historical points, exam findings, and any diagnostic results supporting the discharge/admit diagnosis, lab results, radiology results. 17:50 Physician consultation: Ede Linton MD and will see patient in office, cont all usual [facility] meds, will see in office on wednesday. 08/24 16:18 Order name: CBC with Diff; Complete Time: 17:43 [facility] 08/24 16:18 Order name: Comprehensive Metabolic Panel; Complete Time: 18:59 [facility] 08/24 16:18 Order name: Chest Single View XRAY; Complete Time: 17:43 [facility] 08/24 16:19 Order name: Wound dressing; Complete Time: 16:42 [facility] Administered Medications: No medications were administered Disposition: 08/24/20 18:59 Discharged to Home. Impression: Encounter for other postprocedural aftercare - seroma, End stage renal disease - on HD , M,W,F, Pleural effusion in conditions classified elsewhere. - Condition is Stable. - Discharge Instructions: Pleural Effusion, Sutured Wound Care, End-Stage Kidney Disease, Seroma. - Medication Reconciliation Form, Thank You Letter, Antibiotic Education, Prescription Opioid Use form. - Follow up: Private Physician; When: 2 - 3 days; Reason: Recheck today's complaints, Continuance of care, Re-evaluation by your physician. Follow up: Ede Linton; When: 2 - 3 days; Reason: Recheck today's complaints, Continuance of care, Re-evaluation by your physician. Follow up: Larry Lock; When: 2 - 3 days; Reason: Recheck today's complaints, Re-evaluation by your physician. - Problem is new. - Symptoms have improved. Signatures: Dispatcher [employer] EDDoyle Gardner MD MD cha Smirch, Shelby, RN RN ss Corrections: (The following items were deleted from the chart) 19:18 18:59 08/24/2020 18:59 Discharged to Home. Impression: Encounter for other ss postprocedural aftercare - seroma; End stage renal disease - on HD , M,W,F; Pleural effusion in conditions classified elsewhere. Condition is Stable. Discharge Instructions: End-Stage Kidney Disease, Seroma, Sutured Wound Care, Pleural Effusion. Forms are Medication Reconciliation Form, Thank You Letter, Antibiotic Education, Prescription Opioid Use. Follow up: Private Physician; When: 2 - 3 days; Reason: Recheck today's complaints, Continuance of care, Re-evaluation by your physician. Follow up: Ede Linton; When: 2 - 3 days; Reason: Recheck today's complaints, Continuance of care, Re-evaluation by your physician. Follow up: Larry Lock; When: 2 - 3 days; Reason: Recheck today's complaints, Re-evaluation by your physician. Problem is new. Symptoms have improved. fab
--- NOTE | 2020-08-24 19:00 | ER ---
Nurse's Notes [facility] Name: Richard Rodriguez Age: 65 yrs Sex: Male : 1955 Arrival Date: 08/24/2020 Time: 14:11 Bed 23 Private MD: Diagnosis: Encounter for other postprocedural aftercare-seroma;End stage renal disease-on HD , M,W,F;Pleural effusion in conditions classified elsewhere Presentation: 08/24 14:13 Chief complaint: Patient states: Had double bypass recently and had drain removed from L chest wall Wednesday and started leaking serosanguinous fluid since last night. Coronavirus screen: Client denies travel out of the [place] in the last 14 days. Ebola Screen: Patient denies exposure to infectious person. Patient denies travel to an Ebola-affected area in the 21 days before illness onset. Initial Sepsis Screen: Does the patient meet any 2 criteria? No. Patient's initial sepsis screen is negative. Does the patient have a suspected source of infection? No. Patient's initial sepsis screen is negative. Risk Assessment: Do you want to hurt yourself or someone else? Patient reports no desire to harm self or others. Onset of symptoms was August 23, 2020. 14:13 Method Of Arrival: Ambulatory ss 14:13 Acuity: JERAD 3 ss Historical: - Allergies: 14:17 No Known Allergies; ss - PMHx: 14:17 CVA; Gout; Hypertension; Hyperlipidemia; Diabetes - IDDM; Myocardial infarction; Sleep ss Apnea; Dialysis; - PSHx: 14:17 L knee repair; L shoulder replaced; double CABG; ss - Immunization history:: Adult Immunizations up to date. - Social history:: Smoking status: Patient denies any tobacco usage or history of. - Family history:: not pertinent. Screenin:52 Abuse screen: Denies threats or abuse. Denies injuries from another. Nutritional sv screening: No deficits noted. Tuberculosis screening: No symptoms or risk factors identified. Fall Risk None identified. Assessment: 16:09 General: Appears in no apparent distress. comfortable, well groomed, well developed, sv Behavior is calm, cooperative, appropriate for age. General: Denies fever, chills. Pain: Denies pain. Neuro: Level of Consciousness is awake, alert, obeys commands, Oriented to person, place, time, situation, Moves all extremities. Full function Speech is normal. Respiratory: Airway is patent Respiratory effort is even, unlabored, Respiratory pattern is regular, symmetrical. Derm: Skin is intact, Skin is pink, warm \T\ dry. Pt has a suture noted to the left side of the stomach, where he stated his drainage tube was removed last Wednesday. He was discharged Wednesday and has continued his same activity routine with no strenuous activity and noticed yesterday that he was having serosanguineous drainage at the site. Dressing that was placed by the triage nurse is saturated with serosanguineous drainage. Dressing changed with clean dressing. 17:10 Reassessment: Patient appears in no apparent distress at this time. No changes from previously documented assessment. Patient and/or family updated on plan of care and expected duration. Pain level reassessed. Patient is alert, oriented x 3, equal unlabored respirations, skin warm/dry/pink. 18:10 Reassessment: Inside lab at the bedside to recollect blood. sv 19:17 Reassessment: Patient appears in no apparent distress at this time. Patient and/or ss family updated on plan of care and expected duration. Pain level reassessed. Vital Signs: 14:13 BP 136 / 67; Pulse 74; Resp 22; Temp 98.2(TE); Pulse Ox 97% on R/A; Weight 92.99 kg; Height 5 ft. 10 in. (177.80 cm); Pain 0/10; 16:12 BP 149 / 72; Pulse 78; Resp 16; Pulse Ox 96% on R/A; sv 17:30 BP 152 / 75; Pulse 74; Resp 16; Pulse Ox 96% on R/A; sv 14:13 Body Mass Index 29.41 (92.99 kg, 177.80 cm) ED Course: 14:11 Patient arrived in ED. rg4 14:16 Triage completed. ss 14:17 Arm band placed on left wrist. ss 15:29 Cherry Conner, MARY is Primary Nurse. sv 15:33 Doyle Chauhan MD is Attending Physician. fab 15:52 Patient has correct armband on for positive identification. Bed in low position. Call sv light in reach. Door closed. Head of bed elevated. 16:12 ED physician to see patient. sv 16:52 X-ray(s) taken. sv 17:00 Chest Single View XRAY In Process Unspecified. EDMS 17:10 Inserted saline lock: 24 gauge in right hand, using aseptic technique. Blood collected. sv Flushed right hand with 5 ml normal saline. 18:59 Ede Linton MD is Referral Physician. [facility] 18:59 Larry Lock MD is Referral Physician. [facility] 19:17 No provider procedures requiring assistance completed. IV discontinued, intact, ss bleeding controlled, No redness/swelling at site. Pressure dressing applied. 19:29 Primary Nurse role handed off by Cherry Conner RN Administered Medications: No medications were administered Outcome: 18:59 Discharge ordered by . [facility] 19:17 Discharged to home ambulatory. 19:17 Condition: good 19:17 Discharge instructions given to patient, family, Instructed on discharge instructions, follow up and referral plans. Demonstrated understanding of instructions, follow-up care. 19:18 Patient left the ED. Signatures: Dispatcher [employer] EDMI Cherry Conner, Doyle Moreno RN, MD MD cha Smirch, Shelby, RN RN ss Garcia, Rubi rg4
[2020-08-24 20:35] VITALS: TEMP 98.2
[2020-08-24 20:36] VITALS: O2SAT 96
[2020-08-24 20:38] VITALS: BP 152/75
== END 2020-08-24 19:18 | disposition home or self-care (01) ==
LOC: ER 14:09
DX: I97.641 Postprocedural seroma of a circulatory system organ or structure following cardiac bypass (principal); J90 Pleural effusion, not elsewhere classified; E11.22 Type 2 diabetes mellitus with diabetic chronic kidney disease; I12.0 Hypertensive chronic kidney disease with stage 5 chronic kidney disease or end stage renal disease; N18.6 End stage renal disease; Z99.2 Dependence on renal dialysis; Z95.1 Presence of aortocoronary bypass graft
CPT/HCPCS: 36415; 71045; 80053; 85025; 99284

== ENCOUNTER 2020-09-11 12:21 | Inpatient (IN) | payer OTHER ==
--- OUTSIDE RECORDS SUMMARY | 2020-09-11 12:24 | XMS REPORT | Clinical Summary ---
:1955 Author Organization [facility] Address [address] [place] [address] Care Team Providers Name Role Phone Nando [...] 06/26/2020 Orders Only General Surgery Erin, Elsa, CHIEF AIRPORT GUIDE Vitamin deficiency; Intestinal jazmín bsorption, unspecified type 06/25/2020 Refill General Surgery Deepika Jo Vitamin defi ciency; Andreia, OPERATOR AUTOMATED PROCESS Intestinal jazmín bsorption, unspecified type 04/14/2020 Refill General Surgery Deepika Jo Vitamin defi ciency; Andreia, OPERATOR AUTOMATED PROCESS Intestinal jazmín bsorption, unspecified type 01/24/2020 Refill General Surgery Ede Garcia MD Vitamin deficiency; Intestinal jazmín bsorption, unspecified type 12/25/2019 Telephone General Surgery Rodolfo MarkADARSH Blanca 12/12/2019 Refill General Surgery Ede Garcia MD Vitamin deficiency; Intestinal jazmín bsorption, unspecified type 10/02/2019 Refill General Surgery Ede Garcia MD Vitamin deficiency; Intestinal jazmín bsorption, unspecified type after 09/11/2019 Surgical History Surgery Date Site/Laterality Comments ANTERIOR [...] states is limited by knee p [place] ([place] hearing) no hearing aides Stroke (HCC) 1994, 2001, 2009, 20 17 Knee pain, bilateral AVF (arteriovenous fistula) ([facility]) left l ower arm Family History [...] 1965 DIABETIC FOOT EXAM 1965 COVID-19 VACCINE (1 of 2) 1971 COLONOSCOPY SCREENING 2005 SHINGLES VACCINES (#1) 2005 INFLUENZA VACCINE 03/23/2020 65+ PNEUMOCOCCAL VACCINE (1 of 1 - PPSV23) 2020 Implants Implanted Type Area Ammonia Operator Device Shelf Model / Identifier Expiration Serial / Date Lot Drain Wound Hbls Round Radopaq Trocar Delmy White 0.18in 15fr - [id number] Surgical N/A: N/A [employer] 2229 / Implanted: 08/17/2017 at [facility] (Quantity not on file) Imp lants; [employer] & / Expanders; [employer]URA Extenders; Surgical Wires Results Not on fileafter 09/11/2019 Advance Directives For more information, please contact: [phone] Type Date Recorded 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
--- OUTSIDE RECORDS SUMMARY | 2020-09-11 12:25 | XMS REPORT | Clinical Summary ---
:1955 Author Organization [facility] Address [address] [place] [address] Care Team Providers Name Role Phone Heriberto Amaya Unavailable Pcp, Primary Care Provider Unavailable Allergies No Known Allergies Medications Medication Sig Dispensed Refills Start Date End Date Status carvediloL (COREG) Take 12.5 mg by mouth 0 Active 25 MG tablet 2 (two) times daily with breakfast and dinner . allopurinoL Take 100 mg by mouth 0 Active (ZYLOPRIM) 100 MG daily. tablet aspirin 81 MG EC Take 81 mg by mouth 0 Active tablet daily. multivitamin capsule Take 1 capsule by 0 Active mouth daily. cyanocobalamin Inject 1,000 mcg 0 Active (VITAMIN B-12) 1,000 intramuscularly every mcg/mL injection 30 (thirty) days. apixaban (ELIQUIS) Take 2.5 mg by mouth 0 Active 2.5 mg Tab tablet 2 (two) times daily. hydrALAZINE Take 1 tablet (100 mg 90 tablet 11 08/20/202008/20 Active (APRESOLINE) 100 MG total) by mouth every 1 tablet 8 (eight) hours. Additional Information Patient not taking. Reason: Changed by Provider, Reported on 09/03/2020 11:09 AM rosuvastatin (CRESTOR) 20 Take 1 tablet (20 30 tablet 11 201908/21/2021 Active MG tablet mg total) by mouth daily. ferrous sulfate 325 (65 Take 1 tablet (325 15 tablet 1 020 08/22/2021 Active FE) MG tablet mg total) by mouth every other day. folic acid-multivitamins Take 1 tablet by 30 tablet 5 08/20/20 20 Active (NEPHRO-CESAR) 0.8 mg Tab mouth daily. tablet losartan (COZAAR) 100 MG Take 1 tablet (100 30 tablet 11 201908/21/2021 Active tablet mg total) by mouth daily. Additional Information Patient taking differently: 50 mg Oral Daily, Reason: Changed by Provider, Reported on 09/03/2020 11:09 AM hydrALAZINE (APRESOLINE) Take 100 mg by 0 08/20/2020 Discontinued (Stop 100 MG tablet mouth 2 (two) times Taking at Discharge) daily. rosuvastatin (CRESTOR) 5 Take 5 mg by mouth 0 08/20/2020 Discontinued (Stop MG tablet daily. Taking at Discharge) furosemide (LASIX) 80 MG Take 80 mg by mouth 0 08/20/2020 Discontinued (Stop tablet 2 (two) times Taking at Discharge) daily. Active Problems Problem Noted Date Essential hypertension 08/20/2020 Thrombocytopenia 08/20/2020 s/p ACB x2 - Mark-08/13/2020 08/13/2020 ESRD on hemodialysis Encounters Date Type Specialty Care Team Description 09/03/2020 Office Visit Cardiology Mark, Coronary artery disease Stewart of bypass graft of MD Edilberto [place] heart wi th stable angina p ectoris (HCC) (Primary Dx) 09/03/2020 Travel 08/13/2020 Surgery Mark, BYPASS,[place] [facility] RONARY Stewart HENRY/ELENA Casanova MD 08/13/2020 Anesthesia Event Kristy Khan MD Kwass, William Kyle 08/13/2020 - Hospital Encounter Cardiology Mark, Coronary artery disease of bypass graft of [place] heart with stable angina pectoris (HCC); 08/20/2020 Stewart Thrombocytopeni a (HCC) MD Edilberto 08/12/2020 Hospital Encounter Pre-Admission Testing 08/12/2020 Travel 08/08/2020 Office Visit Cardiology Mark, Preop testing ( Primary Stewart Dx) MD Edilberto after 09/11/2019 Social History Tobacco Use Types Packs/Day Years [...] been in contact with No / Unsure 09/03/2020 11:10 AM [employer] someone who was confirmed or suspected to have Coronavirus / COVID-19? Last Filed Vital Signs Vital Sign Reading Time Taken Comments Blood Pressure 159/77 09/03/2020 11:20 AM [employer] Pulse 70 09/03/2020 11:20 AM [employer] Temperature 36.4 C (97.5 F) 09/03/2020 10:43 AM [employer] Respiratory Rate 18 09/03/2020 10:43 AM [employer] Oxygen Saturation 96% 09/03/2020 10:43 AM [employer] ARCH[employer]ECT room a ir Inhaled Oxygen Concentration 40% 08/13/2020 7:33 PM [employer] Weight 94.8 kg (209 lb) 09/03/2020 10:43 AM [employer] Height 177.8 cm (5' 10") 09/03/2020 10:43 AM [employer] AR[employer] Body Mass Index 29.99 09/03/2020 10:43 AM [employer] Plan of Treatment Health Maintenance Due Date Last Done Comments COLON CANCER SCREENING COLONOSCOPY 1955 INFLUENZA VACCINE (#1) 2020 Medicare IPPE (WELCOME TO MEDICARE) 05/23/2020 PNEUMOCOCCAL 65+ YRS (1 of 1 - 2020 [id number]) LIPID PANEL 08/14/2023 08/14/2020, 08/13/2020, 08/05/2017 DEPRESSION SCREENING (12+) Completed 09/03/2020 Procedures Procedure Name Priority Date/Time Associated Comments Diagnosis XR CHEST 1 VIEW LUIS F 08/19/2020 Results for PORTABLE/BEDSIDE 1:11 PM [employer] this proced ure are in the results section. HEMODIALYSIS INPATIENT Routine 08/19/2020 7:26 AM [employer] AR[employer]ECT PHOSPHORUS Routine 08/19/2020 Results for 4:04 AM [employer] this procedure are in the results section. MAGNESIUM Routine 08/19/2020 Results for 4:04 AM [employer] this procedure are in the results section. CBC (HEMOGRAM ONLY) Routine 08/19/2020 Results for 4:04 AM [employer] this procedure are in the results section. BASIC METABOLIC PANEL (7) Routine 08/19/2020 Re sults for 4:04 AM [employer] AR[employer] this procedure are in the results section. PHOSPHORUS Routine 08/18/2020 Results for 4:54 AM [employer] this procedure are in the results section. MAGNESIUM Routine 08/18/2020 Results for 4:54 AM [employer] this procedure are in the results section. CBC (HEMOGRAM ONLY) Routine 08/18/2020 Results for 4:54 AM [employer] this procedure are in the results section. BASIC METABOLIC PANEL (7) Routine 08/18/2020 Re sults for 4:54 AM [employer] AR[employer] this procedure are in the results section. XR CHEST 1 VIEW Routine 08/18/2020 Results for PORTABLE/BEDSIDE 3:30 AM [employer] ARCHIT[employer] this proced ure are in the results section. PREPARE LEUKO-REDUCED Routine 08/17/2020 Result s for PLATELETS 11:54 PM [employer] this procedure are in the results section. PREPARE LEUKO-REDUCED RBC Routine 08/17/2020 Re sults for 11:54 PM [employer] this procedure are in the results section. POCT-GLUCOSE METER Routine 08/17/2020 Results f or 3:46 PM [employer] this procedure are in the results section. POCT-GLUCOSE METER Routine 08/17/2020 Results f or 12:21 PM [employer] this procedure are in the results section. XR CHEST 1 VIEW LUIS F 08/17/2020 Results for PORTABLE/BEDSIDE 9:33 AM [employer] this proced ure are in the results section. POCT-GLUCOSE METER Routine 08/17/2020 Results f or 8:23 AM [employer] this procedure are in the results section. SARS-COV2/RT-PCR ([facility] & Routine 08/17/2020 Res ults for REF LABS) 5:25 AM [employer] this procedure are in the results section. PHOSPHORUS Routine 08/17/2020 Results for 5:19 AM [employer] this procedure are in the results section. MAGNESIUM Routine 08/17/2020 Results for 5:19 AM [employer] this procedure are in the results section. CBC (HEMOGRAM ONLY) Routine 08/17/2020 Results for 5:19 AM [employer] this procedure are in the results section. BASIC METABOLIC PANEL (7) Routine 08/17/2020 Re sults for 5:19 AM [employer] this procedure are in the results section. TRANSFUSE LEUKO-REDUCED Routine 08/17/2020 PLATELETS 12:16 AM [employer] ARCHITECT POCT-GLUCOSE METER Routine 08/16/2020 Results f or 8:39 PM [employer] this procedure are in the results section. HEMODIALYSIS INPATIENT Routine 08/16/2020 Resul ts for 6:27 PM [employer] AR[employer] this procedure are in the results section. TRANSFUSE LEUKO-REDUCED Routine 08/16/2020 RED BLOOD CELLS 4:59 PM [employer] AR[employer] POCT-GLUCOSE METER Routine 08/16/2020 Results f or 4:56 PM [employer] this procedure are in the results section. POCT-GLUCOSE METER Routine 08/16/2020 Results f or 12:22 PM [employer] this procedure are in the results section. POCT-GLUCOSE METER Routine 08/16/2020 Results f or 7:21 AM [employer] this procedure are in the results section. CALCIUM, IONIZED STAT 08/16/2020 Results for 4:06 AM [employer] this procedure are in the results section. PHOSPHORUS Routine 08/16/2020 Results for 4:06 AM [employer] this procedure are in the results section. MAGNESIUM Routine 08/16/2020 Results for 4:06 AM [employer] this procedure are in the results section. CBC (HEMOGRAM ONLY) Routine 08/16/2020 Results for 4:06 AM [employer] this procedure are in the results section. BASIC METABOLIC PANEL (7) Routine 08/16/2020 Re sults for 4:06 AM [employer] this procedure are in the results section. XR CHEST 1 VIEW Routine 08/16/2020 Results for PORTABLE/BEDSIDE 3:21 AM [employer] ARCH[employer] this proced ure are in the results section. POCT-GLUCOSE METER Routine 08/15/2020 Results f or 8:41 PM [employer] this procedure are in the results section. POCT-GLUCOSE METER Routine 08/15/2020 Results f or 3:00 PM [employer] this procedure are in the results section. XR CHEST 1 VIEW STAT 08/15/2020 Results for PORTABLE/BEDSIDE 2:35 PM [employer] this proced ure are in the results section. US THORACENTESIS LUIS F 08/15/2020 Results for 1:25 PM [employer] this procedure are in the results section. POCT-GLUCOSE METER Routine 08/15/2020 Results f or 12:15 PM [employer] this procedure are in the results section. PT/APTT Routine 08/15/2020 Results for 9:33 AM [employer] AR[employer] this procedure are in the results section. POCT-GLUCOSE METER Routine 08/15/2020 Results f or 7:28 AM [employer] AR[employer] this procedure are in the results section. XR CHEST 1 VIEW Routine 08/15/2020 Results for PORTABLE/BEDSIDE 3:53 AM [employer] ARCHITECT this proced ure are in the results section. MISSAEL TITER AND PATTERN Routine 08/15/2020 Result s for 3:47 AM [employer] AR[employer] this procedure are in the results section. CALCIUM, IONIZED STAT 08/15/2020 Results for 3:47 AM [employer] AR[employer] this procedure are in the results section. PHOSPHORUS Routine 08/15/2020 Results for 3:47 AM [employer] AR[employer] this procedure are in the results section. MAGNESIUM Routine 08/15/2020 Results for 3:47 AM [employer] this procedure are in the results section. CBC (HEMOGRAM ONLY) Routine 08/15/2020 Results for 3:47 AM [employer] AR[employer] this procedure are in the results section. BASIC METABOLIC PANEL (7) Routine 08/15/2020 Re sults for 3:47 AM [employer] ARCH[employer] this procedure are in the results section. ANTI-NUCLEAR ANTIBODY Routine 08/15/2020 Result s for (MISSAEL) 3:47 AM [employer] this procedure are in the results section. PREPARE RBC STAT 08/14/2020 Results for 11:54 PM [employer] AR[employer] this procedure are in the results section. PREPARE PLATELETS STAT 08/14/2020 Results fo r 11:54 PM [employer] AR[employer] this procedure are in the results section. PREPARE PLASMA STAT 08/14/2020 Results for 11:54 PM [employer] AR[employer] this procedure are in the results section. PREPARE PLATELETS STAT 08/14/2020 Results fo r 11:54 PM [employer] AR[employer] this procedure are in the results section. PREPARE PLATELETS STAT 08/14/2020 Results fo r 11:54 PM [employer] AR[employer] this procedure are in the results section. PREPARE RBC STAT 08/14/2020 Results for 11:54 PM [employer] AR[employer] this procedure are in the results section. OXYGEN SATURATION, STAT 08/14/2020 Results f or MEASURED 10:38 AM [employer] AR[employer] this procedure are in the results section. US ABDOMEN LIMITED Routine 08/14/2020 Results f or 10:23 AM [employer] AR[employer] this procedure are in the results section. POCT-GLUCOSE METER Routine 08/14/2020 Results f or 6:05 AM [employer] this procedure are in the results section. BLOOD GAS, ARTERIAL Routine 08/14/2020 Results for 3:52 AM [employer] AR[employer] this procedure are in the results section. CALCIUM, IONIZED STAT 08/14/2020 Results for 3:52 AM [employer] this procedure are in the results section. HEPATITIS B PANEL Routine 08/14/2020 Results fo r 3:52 AM [employer] this procedure are in the results section. HEPATITIS C ANTIBODY Routine 08/14/2020 Results for 3:52 AM [employer] AR[employer] this procedure are in the results section. HC LAB HIV-1 AG W/HIV-1&2 Routine 08/14/2020 Re sults for AB 3:52 AM [employer] AR[employer]ECT this procedure are in the results section. HEMOGLOBIN A1C Routine 08/14/2020 Results for 3:52 AM [employer] this procedure are in the results section. LIPID PANEL Routine 08/14/2020 Results for 3:52 AM [employer] AR[employer] this procedure are in the results section. PHOSPHORUS Routine 08/14/2020 Results for 3:52 AM [employer] this procedure are in the results section. MAGNESIUM Routine 08/14/2020 Results for 3:52 AM [employer] AR[employer] this procedure are in the results section. CBC (HEMOGRAM ONLY) Routine 08/14/2020 Results for 3:52 AM [employer] this procedure are in the results section. BASIC METABOLIC PANEL (7) Routine 08/14/2020 Re sults for 3:52 AM [employer] AR[employer] this procedure are in the results section. XR CHEST 1 VIEW Routine 08/14/2020 Results for PORTABLE/BEDSIDE 1:23 AM [employer] ARCHITECT this proced ure are in the results section. POCT-GLUCOSE METER Routine 08/14/2020 Results f or 12:31 AM [employer] this procedure are in the results section. HGB/HCT (H&H) - STAT LAB STAT 08/13/2020 Res ults for 7:34 PM [employer] AR[employer] this procedure are in the results section. GLUCOSE-STAT LAB STAT 08/13/2020 Results for 7:34 PM [employer] this procedure are in the results section. POTASSIUM-STAT LAB STAT 08/13/2020 Results f or 7:34 PM [employer] this procedure are in the results section. SODIUM NA-STAT LAB STAT 08/13/2020 Results f or 7:34 PM [employer] this procedure are in the results section. BLOOD GAS, ARTERIAL STAT 08/13/2020 Results for 7:34 PM [employer] AR[employer] this procedure are in the results section. LACTIC ACID, ARTERIAL STAT 08/13/2020 Result s for 7:34 PM [employer] AR[employer] this procedure are in the results section. BLOOD GAS, ARTERIAL STAT 08/13/2020 Results for 7:34 PM [employer] AR[employer] this procedure are in the results section. HGB/HCT (H&H) - STAT LAB Routine 08/13/2020 Res ults for 4:17 PM [employer] this procedure are in the results section. GLUCOSE-STAT LAB Routine 08/13/2020 Results for 4:17 PM [employer] this procedure are in the results section. POTASSIUM-STAT LAB Routine 08/13/2020 Results f or 4:17 PM [employer] this procedure are in the results section. SODIUM NA-STAT LAB Routine 08/13/2020 Results f or 4:17 PM [employer] AR[employer] this procedure are in the results section. BLOOD GAS, ARTERIAL Routine 08/13/2020 Results for 4:17 PM [employer] AR[employer] this procedure are in the results section. BLOOD GAS, ARTERIAL Routine 08/13/2020 Results for 4:17 PM [employer] AR[employer] this procedure are in the results section. XR CHEST 1 VIEW STAT 08/13/2020 Results for PORTABLE/BEDSIDE 3:30 PM [employer] ARCH[employer] this proced ure are in the results section. CALCIUM, IONIZED STAT 08/13/2020 Results for 2:31 PM [employer] AR[employer] this procedure are in the results section. THROMBOELASTOGRAPH (TEG) STAT 08/13/2020 Res ults for 2:30 PM [employer] AR[employer] this procedure are in the results section. OXYGEN SATURATION, STAT 08/13/2020 Results f or MEASURED 2:30 PM [employer] AR[employer] this procedure are in the results section. PROTHROMBIN TIME/INR STAT 08/13/2020 Results for 2:30 PM [employer] this procedure are in the results section. PT/APTT STAT 08/13/2020 Results for 2:30 PM [employer] AR[employer] this procedure are in the results section. XR CHEST 1 VIEW STAT 08/13/2020 Results for PORTABLE/BEDSIDE 2:00 PM [employer] AR[employer] this proced ure are in the results section. HGB/HCT (H&H) - STAT LAB STAT 08/13/2020 Res ults for 1:44 PM [employer] AR[employer] this procedure are in the results section. GLUCOSE-STAT LAB STAT 08/13/2020 Results for 1:44 PM [employer] AR[employer] this procedure are in the results section. POTASSIUM-STAT LAB STAT 08/13/2020 Results f or 1:44 PM [employer] AR[employer] this procedure are in the results section. SODIUM NA-STAT LAB STAT 08/13/2020 Results f or 1:44 PM [employer] AR[employer] this procedure are in the results section. BLOOD GAS, ARTERIAL STAT 08/13/2020 Results for 1:44 PM [employer] AR[employer] this procedure are in the results section. COMPREHENSIVE METABOLIC STAT 08/13/2020 Resu lts for PANEL 1:44 PM [employer] this procedure are in the results section. OXYGEN SATURATION, STAT 08/13/2020 Results f or MEASURED 1:44 PM [employer] this procedure are in the results section. CBC (HEMOGRAM ONLY) STAT 08/13/2020 Results for 1:44 PM [employer] this procedure are in the results section. PHOSPHORUS STAT 08/13/2020 Results for 1:44 PM [employer] AR[employer] this procedure are in the results section. LACTIC ACID, ARTERIAL STAT 08/13/2020 Result s for 1:44 PM [employer] AR[employer] this procedure are in the results section. BLOOD GAS, ARTERIAL STAT 08/13/2020 Results for 1:44 PM [employer] AR[employer] this procedure are in the results section. MAGNESIUM STAT 08/13/2020 Results for 1:44 PM [employer] this procedure are in the results section. BILIRUBIN, TOTAL AND Routine 08/13/2020 Results for DIRECT 12:30 PM [employer] this procedure are in the results section. LACTATE DEHYDROGENASE Routine 08/13/2020 Result s for (LDH) 12:30 PM [employer] this procedure are in the results section. HGB/HCT (H&H) - STAT LAB STAT 08/13/2020 Res ults for 12:27 PM [employer] AR[employer] this procedure are in the results section. GLUCOSE-STAT LAB STAT 08/13/2020 Results for 12:27 PM [employer] AR[employer] this procedure are in the results section. POTASSIUM-STAT LAB STAT 08/13/2020 Results f or 12:27 PM [employer] AR[employer] this procedure are in the results section. SODIUM NA-STAT LAB STAT 08/13/2020 Results f or 12:27 PM [employer] this procedure are in the results section. BLOOD GAS, ARTERIAL STAT 08/13/2020 Results for 12:27 PM [employer] AR[employer] this procedure are in the results section. HAPTOGLOBIN Routine 08/13/2020 Results for 12:27 PM [employer] AR[employer] this procedure are in the results section. PLATELET COUNT STAT 08/13/2020 Results for 12:27 PM [employer] AR[employer] this procedure are in the results section. THROMBOELASTOGRAPH (TEG) STAT 08/13/2020 Res ults for 12:27 PM [employer] AR[employer] this procedure are in the results section. FIBRINOGEN STAT 08/13/2020 Results for 12:27 PM [employer] AR[employer] this procedure are in the results section. APTT STAT 08/13/2020 Results for 12:27 PM [employer] this procedure are in the results section. PROTHROMBIN TIME/INR STAT 08/13/2020 Results for 12:27 PM [employer] this procedure are in the results section. BLOOD GAS, ARTERIAL STAT 08/13/2020 Results for 12:27 PM [employer] this procedure are in the results section. HEPATITIS B SURFACE Add-On 08/13/2020 Results for ANTIGEN 12:27 PM [employer] this procedure are in the results section. RETICULOCYTE COUNT Routine 08/13/2020 Results f or 12:27 PM [employer] this procedure are in the results section. TRANSFUSE LEUKO-REDUCED Routine 08/13/2020 RED BLOOD CELLS 12:08 PM [employer] AR[employer]ECT TRANSFUSE LEUKO-REDUCED Routine 08/13/2020 RED BLOOD CELLS 12:04 PM [employer] AR[employer]ECT HGB/HCT (H&H) - STAT LAB STAT 08/13/2020 Res ults for 11:41 AM [employer] ARCHITECT this procedure are in the results section. GLUCOSE-STAT LAB STAT 08/13/2020 Results for 11:41 AM [employer] AR[employer] this procedure are in the results section. POTASSIUM-STAT LAB STAT 08/13/2020 Results f or 11:41 AM [employer] AR[employer] this procedure are in the results section. SODIUM NA-STAT LAB STAT 08/13/2020 Results f or 11:41 AM [employer] this procedure are in the results section. BLOOD GAS, ARTERIAL STAT 08/13/2020 Results for 11:41 AM [employer] AR[employer]ECT this procedure are in the results section. PLATELET COUNT Routine 08/13/2020 Results for 11:41 AM [employer] this procedure are in the results section. FIBRINOGEN Routine 08/13/2020 Results for 11:41 AM [employer] this procedure are in the results section. APTT Routine 08/13/2020 Results for 11:41 AM [employer] AR[employer] this procedure are in the results section. PROTHROMBIN TIME/INR Routine 08/13/2020 Results for 11:41 AM [employer] this procedure are in the results section. CALCIUM, IONIZED STAT 08/13/2020 Results for 11:41 AM [employer] this procedure are in the results section. BLOOD GAS, ARTERIAL STAT 08/13/2020 Results for 11:41 AM [employer] this procedure are in the results section. CBC W/PLT COUNT & AUTO Routine 08/13/2020 Resul ts for DIFFERENTIAL 11:41 AM [employer] this procedure are in the results section. RETICULOCYTE COUNT Add-On 08/13/2020 Results f or 11:41 AM [employer] this procedure are in the results section. CBC W/PLT COUNT & AUTO STAT Add-on 08/13/2020 Resul ts for DIFFERENTIAL 11:41 AM [employer] this procedure are in the results section. TRANSFUSE LEUKO-REDUCED Routine 08/13/2020 RED BLOOD CELLS 11:26 AM [employer] AR[employer]ECT TRANSFUSE LEUKO-REDUCED Routine 08/13/2020 PLATELETS 11:20 AM [employer] ARCHITECT TRANSFUSE LEUKO-REDUCED Routine 08/13/2020 PLATELETS 11:20 AM [employer] AR[employer]ECT TRANSFUSE PLASMA Routine 08/13/2020 11:19 AM [employer]ECT TRANSFUSE PLASMA Routine 08/13/2020 11:19 AM [employer]ECT TRANSFUSE LEUKO-REDUCED Routine 08/13/2020 PLATELETS 11:18 AM [employer]ECT TRANSFUSE LEUKO-REDUCED Routine 08/13/2020 PLATELETS 11:18 AM [employer] ARCHITECT TRANSFUSE LEUKO-REDUCED Routine 08/13/2020 RED BLOOD CELLS 11:05 AM [employer]ECT TRANSFUSE LEUKO-REDUCED Routine 08/13/2020 RED BLOOD CELLS 11:04 AM [employer] POCT-ACT Routine 08/13/2020 Results for 10:58 AM [employer] this procedure are in the results section. HGB/HCT (H&H) - STAT LAB STAT 08/13/2020 Res ults for 10:51 AM [employer] this procedure are in the results section. GLUCOSE-STAT LAB STAT 08/13/2020 Results for 10:51 AM [employer] this procedure are in the results section. POTASSIUM-STAT LAB STAT 08/13/2020 Results f or 10:51 AM [employer] this procedure are in the results section. SODIUM NA-STAT LAB STAT 08/13/2020 Results f or 10:51 AM [employer] this procedure are in the results section. BLOOD GAS, ARTERIAL STAT 08/13/2020 Results for 10:51 AM [employer] this procedure are in the results section. PLATELET COUNT STAT 08/13/2020 Results for 10:51 AM [employer] this procedure are in the results section. THROMBOELASTOGRAPH (TEG) STAT 08/13/2020 Res ults for 10:51 AM [employer] this procedure are in the results section. FIBRINOGEN STAT 08/13/2020 Results for 10:51 AM [employer] this procedure are in the results section. APTT STAT 08/13/2020 Results for 10:51 AM [employer] this procedure are in the results section. PROTHROMBIN TIME/INR STAT 08/13/2020 Results for 10:51 AM [employer] this procedure are in the results section. BLOOD GAS, ARTERIAL STAT 08/13/2020 Results for 10:51 AM [employer] this procedure are in the results section. TRANSFUSE LEUKO-REDUCED Routine 08/13/2020 PLATELETS 10:45 AM [employer] AR[employer]ECT TRANSFUSE LEUKO-REDUCED Routine 08/13/2020 PLATELETS 10:41 AM [employer] AR[employer]ECT TRANSFUSE LEUKO-REDUCED Routine 08/13/2020 PLATELETS 10:39 AM [employer] AR[employer]ECT TRANSFUSE LEUKO-REDUCED Routine 08/13/2020 PLATELETS 10:39 AM [employer] AR[employer]ECT POCT-ACT Routine 08/13/2020 Results for 10:28 AM [employer] this procedure are in the results section. HGB/HCT (H&H) - STAT LAB STAT 08/13/2020 Res ults for 10:15 AM [employer] this procedure are in the results section. GLUCOSE-STAT LAB STAT 08/13/2020 Results for 10:15 AM [employer] this procedure are in the results section. POTASSIUM-STAT LAB STAT 08/13/2020 Results f or 10:15 AM [employer] this procedure are in the results section. SODIUM NA-STAT LAB STAT 08/13/2020 Results f or 10:15 AM [employer] this procedure are in the results section. BLOOD GAS, ARTERIAL STAT 08/13/2020 Results for 10:15 AM [employer] this procedure are in the results section. PLATELET COUNT Routine 08/13/2020 Results for 10:15 AM [employer] this procedure are in the results section. FIBRINOGEN Routine 08/13/2020 Results for 10:15 AM [employer] this procedure are in the results section. APTT Routine 08/13/2020 Results for 10:15 AM [employer] this procedure are in the results section. PROTHROMBIN TIME/INR Routine 08/13/2020 Results for 10:15 AM [employer] this procedure are in the results section. CALCIUM, IONIZED STAT 08/13/2020 Results for 10:15 AM DOT NET ARCHITECT this procedure are in the results section. BLOOD GAS, ARTERIAL STAT 08/13/2020 Results for 10:15 AM DOT NET ARCHITECT this procedure are in the results section. PERIPHERAL BLOOD SMEAR - STAT Add-on 08/13/2020 Res ults for HOLD ONLY 10:15 AM DOT NET ARCHITECT this procedure are in the results section. POCT-ACT Routine 08/13/2020 Results for 9:49 AM DOT NET ARCHITECT this procedure are in the results section. HGB/HCT (H&H) - STAT LAB STAT 08/13/2020 Res ults for 9:46 AM DOT NET ARCHITECT this procedure are in the results section. GLUCOSE-STAT LAB STAT 08/13/2020 Results for 9:46 AM DOT NET ARCHITECT this procedure are in the results section. POTASSIUM-STAT LAB STAT 08/13/2020 Results f or 9:46 AM DOT NET ARCHITECT this procedure are in the results section. SODIUM NA-STAT LAB STAT 08/13/2020 Results f or 9:46 AM DOT NET ARCHITECT this procedure are in the results section. BLOOD GAS, ARTERIAL STAT 08/13/2020 Results for 9:46 AM DOT NET ARCHITECT this procedure are in the results section. BLOOD GAS, ARTERIAL STAT 08/13/2020 Results for 9:46 AM DOT NET ARCHITECT this procedure are in the results section. TRANSFUSE LEUKO-REDUCED Routine 08/13/2020 RED BLOOD CELLS 9:34 AM DOT NET ARCHITECT POCT-ACT Routine 08/13/2020 Results for 9:26 AM DOT NET ARCHITECT this procedure are in the results section. HGB/HCT (H&H) - STAT LAB STAT 08/13/2020 Res ults for 9:20 AM DOT NET ARCHITECT this procedure are in the results section. GLUCOSE-STAT LAB STAT 08/13/2020 Results for 9:20 AM DOT NET ARCHITECT this procedure are in the results section. POTASSIUM-STAT LAB STAT 08/13/2020 Results f or 9:20 AM DOT NET ARCHITECT this procedure are in the results section. SODIUM NA-STAT LAB STAT 08/13/2020 Results f or 9:20 AM DOT NET ARCHITECT this procedure are in the results section. BLOOD GAS, ARTERIAL STAT 08/13/2020 Results for 9:20 AM DOT NET ARCHITECT this procedure are in the results section. BLOOD GAS, ARTERIAL STAT 08/13/2020 Results for 9:20 AM DOT NET ARCHITECT this procedure are in the results section. POCT-ACT Routine 08/13/2020 Results for 8:59 AM DOT NET ARCHITECT this procedure are in the results section. ANESTHESIA DASIA Routine 08/13/2020 Results for 8:21 AM DOT NET ARCHITECT this procedure are in the results section. ABORH, MANUAL STAT 08/13/2020 Results for 8:14 AM DOT NET ARCHITECT this procedure are in the results section. POCT-ACT Routine 08/13/2020 Results for 8:11 AM DOT NET ARCHITECT this procedure are in the results section. HGB/HCT (H&H) - STAT LAB STAT 08/13/2020 Res ults for 7:51 AM DOT NET ARCHITECT this procedure are in the results section. GLUCOSE-STAT LAB STAT 08/13/2020 Results for 7:51 AM DOT NET ARCHITECT this procedure are in the results section. POTASSIUM-STAT LAB STAT 08/13/2020 Results f or 7:51 AM DOT NET ARCHITECT this procedure are in the results section. SODIUM NA-STAT LAB STAT 08/13/2020 Results f or 7:51 AM DOT NET ARCHITECT this procedure are in the results section. BLOOD GAS, ARTERIAL STAT 08/13/2020 Results for 7:51 AM DOT NET ARCHITECT this procedure are in the results section. CALCIUM, IONIZED STAT 08/13/2020 Results for 7:51 AM DOT NET ARCHITECT this procedure are in the results section. BLOOD GAS, ARTERIAL STAT 08/13/2020 Results for 7:51 AM DOT NET ARCHITECT this procedure are in the results section. 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, unspecified vessel or lesion type, unspecified whether [place] or transplanted heart (HCC) Special Needs (ICU BED NEEDED) ENDOSCOPIC HARVEST,VEIN 08/13/2020 7:07 AM DOT NET ARCHITECT Parekh ry artery disease with angina pectoris, unspecified vessel or lesion type, unspecified whether [place] o r transplanted heart (HCC) Special Needs (ICU BED NEEDED) BYPASS,AORTO CORONARY HENRY/SVG 08/13/2020 7:07 A M DOT NET ARCHITECT Coronary artery disease with angina pectoris, unspecified vessel or lesion type, unspecified whether [place] or transplanted heart (HCC) Special Needs (ICU BED NEEDED) XR CHEST 1 VIEW STAT 08/13/2020 6:41 Results for this PORTABLE/BEDSIDE AM DOT NET ARCHITECT procedure a re in the results section. CBC W/PLT COUNT & AUTO STAT 08/13/2020 6:28 R esults for this DIFFERENTIAL AM DOT NET ARCHITECT procedure are i n the results section. ABORH, MANUAL STAT 08/13/2020 6:28 Results fo r this AM DOT NET ARCHITECT procedure are i n the results section. TYPE AND SCREEN, STAT 08/13/2020 6:28 Results for this AUTOMATED AM DOT NET ARCHITECT procedure are i n the results section. LACTATE DEHYDROGENASE Add-On 08/13/2020 6:28 Re sults for this (LDH) AM DOT NET ARCHITECT procedure are i n the results section. BILIRUBIN, TOTAL AND Add-On 08/13/2020 6:28 Res ults for this DIRECT AM DOT NET ARCHITECT procedure are i n the results section. PHOSPHORUS STAT Add-on 08/13/2020 6:28 Results for this AM DOT NET ARCHITECT procedure are i n the results section. APTT STAT 08/13/2020 6:28 Results for this AM DOT NET ARCHITECT procedure are i n the results section. PROTHROMBIN TIME/INR STAT 08/13/2020 6:28 Res ults for this AM DOT NET ARCHITECT procedure are i n the results section. CBC W/PLT COUNT & AUTO STAT 08/13/2020 6:28 R esults for this DIFFERENTIAL AM DOT NET ARCHITECT procedure are i n the results section. LIPID PANEL STAT 08/13/2020 6:28 Results for this AM DOT NET ARCHITECT procedure are i n the results section. HEMOGLOBIN A1C STAT 08/13/2020 6:28 Results f or this AM DOT NET ARCHITECT procedure are i n the results section. COMPREHENSIVE METABOLIC STAT 08/13/2020 6:28 Results for this PANEL AM DOT NET ARCHITECT procedure are i n the results section. MAGNESIUM STAT 08/13/2020 6:28 Results for this AM DOT NET ARCHITECT procedure are i n the results section. POCT-GLUCOSE METER Routine 08/13/2020 6:01 Resul ts for this AM DOT NET ARCHITECT procedure are i n the results section. SARS-COV2/RT-PCR (HS & Routine 08/08/2020 11:42 Preop testin g Results for this REF LABS) AM DOT NET ARCHITECT procedure are i n the results section. after 09/11/2019 Results XR chest 1 view portable / bedside (08/19/2020 1:11 PM DOT NET ARCHITECT)Only the most recent of10 resultswithin the time period is included. Specimen Narrative Performed At FINAL REPORT [employer] RAD, CHEST, 1 VIEW, NON DEPT INDICATION: [...] Report Verified Date/Time: 08/19/2020 13:19:30 Reading Location: [facility] Reading Room Procedure Note Interface, External Ris In - 08/19/2020 1:21 PM DOT NET ARCHITECT FINAL REPORT RAD, CHEST, 1 VIEW, NON [...] Verified Date/Time: 08/19/2020 1 3:19:30 Reading Location: [facility] Reading Room Performing Organization Address City/State/Zipcode Phone Number [employer] CBC (Hemogram only) (08/19/2020 4:04 AM DOT NET ARCHITECT)Only the most recent of7 results within the time period is included. Pathologist [facility] nature WBC 7.5 3.5 - 10.5 K/L [facility] RBC 3.01 (L) 4.63 - 6.08 M/L [facility] Hemoglobin 8.8 (L) 13.7 - 17.5 GM/DL [facility] Hematocrit 27.9 (L) 40.1 - 51.0 % [facility] MCV 92.7 (H) 79.0 - 92.2 fL [facility] MCH 29.2 25.7 - 32.2 pg [facility] MCHC 31.5 (L) 32.3 - 36.5 GM/DL [facility] RDW 16.0 (H) 11.6 - 14.4 % [facility] Platelets 83 (L) 150 - 450 K/CU MM [facility] MPV 11.5 9.4 - 12.4 fL [facility] nRBC 0 0 - 0 /100 WBC [facility] Specimen Blood Performing Organization Address City/State/Zipcode Phone Number [address] [address] CENTER Phosphorus (08/19/2020 4:04 AM DOT NET ARCHITECT)Only the most recent of8 resultswithin the time period is included. Pathologist Sig nature Phosphorus 4.0 2.3 - 4.7 mg/dL [facility] Specimen Blood Narrative Performed At Cake Tester ID [facility] Performing Organization Address City/State/Zipcode Phone Number [address] [address] CENTER Magnesium (08/19/2020 4:04 AM DOT NET ARCHITECT)Only the most recent of8 resultswithin the time period is included. Pathologist Sig nature Magnesium 2.1 1.6 - 2.6 mg/dL [facility] Specimen Blood Narrative Performed At Cake Tester ID - ED[facility]I [facility] Performing Organization Address [facility] Phone Number [address] [address] CENTER Basic Metabolic Panel (08/19/2020 4:04 AM DOT NET ARCHITECT)Only the most recent of6 results within the time period is included. Sodium 138 136 - 145 meq/L [facility] Potassium 3.9 3.5 - 5.1 meq/L [facility] Chloride 105 98 - 107 meq/L [facility] CO2 22 22 - 29 meq/L [facility] BUN 49 (H) 7 - 21 mg/dL [facility] Creatinine 6.96 (H) 0.57 - 1.25 [facility] mg/dL [facility] Glucose 84 70 - 105 mg/dL [facility] Calcium 8.4 8.4 - 10.2 [facility] mg/dL [facility] EGFR 8Comment: ESTIMATED mL/min/1.73 sq [facility] GFR IS NOT m [facility] ACCURATE [place] CREATININE CLEARANCE IN PREDICTING GLOMERULAR FILTRATION RATE. ESTIMATED GFR IS NOT APPLICABLE FOR DIALYSIS PATIENTS. Specimen Blood Narrative Performed At Cake Tester ID - EDIE [facility] Performing Organization Address [facility] Phone Number [address] [address] CENTER Prepare Leuko-Red PLT (08/17/2020 11:54 PM DOT NET ARCHITECT) Pathologist Sig nature Unit ABO O Neg SAFETRACE TX UNIT NUMBER [id number] SAFETRACE TX Status TX_TIMEINCHART SAFETRACE TX Blood Bank Product PLATELETS SAFETRACE TX PRODUCT CODE [id number] SAFETRACE [place] Specimen Blood Performing Organization Address [facility] Cent[facility]ode Phone Number S[employer]ETRACE [place] Prepare Leuko-Red RBC (08/17/2020 11:54 PM DOT NET ARCHITECT) Pathologist Sig nature CROSSMATCH COMPATIBLE SAFETRACE TX Unit ABO O Pos SAFETRACE TX UNIT NUMBER [id number] SAFETRACE TX Status TX_TIMEINCHART SAFETRACE TX Blood Bank Product RED BLOOD CELLS SAFETRACE [place] PRODUCT CODE [id number] S[place]ACE [place] Specimen Other Performing Organization Address City/State/Zipcode Phone Number SAFETRACE TX POC-Glucose meter (08/17/2020 3:46 PM DOT NET ARCHITECT)Only the most recent of14 results within the time period is included. Pathologist Lashanda POC-Glucose Meter 178 (H) 70 - 110 mg/dL [facility] Comment: [facility] : TESTED AT [address], [address] CENTER : Cake Tester/[employer] Worker ID = [id number] for Lexus Bynum Specimen Blood Performing Organization Address City/[facility]/Zipcode Phone Number [address] [address] CENTER SARS-CoV2/RT-PCR (Asymptomatic ONLY) (08/17/2020 5:25 AM DOT NET ARCHITECT)Only the most recent of2 resultswithin the time period is included. Pathologist [facility] SARS-COV2/RT-PCR Negative Not Detected, [facility] Negative, See [facility] external report CENTER for linked test SARS-COV-2 [facility] RAJAT [facility] PERFORMING LAB [facility] Specimen Other - Nasopharyngeal wall structure (b rasta structure) Narrative Performed At Negative result for this test determines that [facility] SARS-CoV-2 RNA was not present in the [...] the Act. Fact Sheet for Healthcare Providers: https://www.[employer]/sites/default/files/pro duct/documents/Fact_Sheet_HC_Providers_Lyra_SA RS-CoV-2.pdf Fact Sheet for Healthcare Patients: https://www.[employer]/sites/default/files/pro duct/documents/Fact_Sheet_Patients_Lyra_SARS-C oV-2.pdf Performing Laboratory: [place] [address] Performing Organization Address City/State/[place] [address] CENTER Transfuse Leuko-Red PLT (08/17/2020 12:16 AM DOT NET ARCHITECT)Only the most recent of9 resultswithin the time period is included.HEMODIALYSIS INPATIENT (08/16/2020 6:27 PM DOT NET ARCHITECT) Narrative Performed At Ramon Carrillo RN 08/16/2020 [...] 08/16/2020 CREATININE 6.05 (H) 08/16/2020 ' Ramon BENITEZ, RN II 7S6- Adult Dialysis [phone] Transfuse Leuko-Red RBC (08/16/2020 4:59 PM DOT NET ARCHITECT)Only the most recent of7 resultswithin the time period is included.Calcium, Ionized (08/16/2020 4:06 AM DOT NET ARCHITECT)Only the most recent of7 resultswithin the time period is included. Pathologist Sig nature Calcium, Ion 1.12 1.12 - 1.27 mmol/L [facility] pH, Blood 7.42 [facility] Specimen Blood Performing Organization Address City/State/Zipcode Phone Number [facility] [address] [place] [address] CENTER US thoracentesis (08/15/2020 1:25 PM DOT NET ARCHITECT) Specimen Narrative Performed At FINAL REPORT [employer] Ultrasound guided right thoracentesis. Clinical History: Right pleural effusi on. Modality: Ultrasound. Sedation: None. Culvert Installer: Kamilla Marte PA-C Curing Room Supervisor: None. Estimated Blood Loss: 1cc Specimen: 1200 [...] Report Verified Date/Time: 08/15/2020 15:25:50 Reading Location: [facility] [id number] Ultrasoun d Reading Room Electronically signed by: ASHLYN LEROY MD o n 08/15/2020 03:25 PM Procedure Note Interface, External Ris In - 08/15/2020 3:28 PM DOT NET ARCHITECT FINAL REPORT Ultrasound guided right thoracentesis. Clinical History: Right pleural effusio n. Modality: Ultrasound. Sedation: None. Culvert Installer: Kamilla Marte PA-C Curing Room Supervisor: None. Estimated Blood Loss: 1cc Specimen: 1200 [...] Verified Date/Time: 08/15/2020 1 5:25:50 Reading Location: [facility] B1 [id number] Ultrasoun d Reading Room Performing Organization Address City/State/Zipcode Phone Number [facility] PT/aPTT (08/15/2020 9:33 AM DOT NET ARCHITECT)Only the most recent of2 resultswithin the time period is included. Pathologist Sig nature Protime 14.9 (H) 11.9 - 14.2 seconds [facility] INR 1.21 <=5.90 [facility] PTT 27.4 22.5 - 36.0 seconds [facility] Specimen Blood Narrative Performed At Effective 01/18/2019: PT Reference Range [facility] Change New: 11.9-14.2 Previous: 11.7-14.7 RECOMMENDED COUMADIN/WARFARIN INR THERAPY RANGES STANDARD DOSE: 2.0-3.0 Includes: PROPHYLAXIS for venous thrombosis, systemic embolization; TREATMENT for venous thrombosis and/or pulmonary embolus. HIGH RISK: Target INR is 2.5-3.5 for patients wiht mechanical heart valves. Performing Organization Address City/[facility]/Zipcode Phone Number [address] [address] CENTER MISSAEL Titer & Pattern (08/15/2020 3:47 AM DOT NET ARCHITECT) Pathologist Sig nature MISSAEL Titer 1:160 [facility] MISSAEL Pattern Homogeneous [facility] Specimen Blood Performing Organization Address [facility] Phone Number [address] [address] CENTER Anti-Nuclear Antibody (MISSAEL) (08/15/2020 3:47 AM DOT NET ARCHITECT) Pathologist Sig nature MISSAEL Positive (A) Negative [facility] Specimen Blood Narrative Performed At Test performed by IFA method. [facility] Performing Organization Address [facility] Centercode Phone Number [address] [address] CENTER Prepare PLT (08/14/2020 11:54 PM DOT NET ARCHITECT)Only the most recent of3 resultswithin the time period is included. Pathologist Sig nature Unit ABO O Pos SAFETRACE TX UNIT NUMBER [id number] SAFETRACE TX Status TX_TIMEINCHART SAFETRACE TX Blood Bank Product PLATELETS SAFETRACE TX PRODUCT CODE [id number] SAFETRACE TX Unit ABO O Neg SAFETRACE TX UNIT NUMBER [id number] SAFETRACE TX Status TX_TIMEINCHART SAFETRACE TX Blood Bank Product PLATELETS SAFETRACE TX PRODUCT CODE [id number] SAFETRACE TX Performing Organization Address [facility] Phone Number SAFETRACE TX Prepare plasma (08/14/2020 11:54 PM DOT NET ARCHITECT) Pathologist Sig nature Unit ABO O Pos SAFETRACE TX UNIT NUMBER [id number] SAFETRACE TX Status TX_TIMEINCHART SAFETRACE TX Blood Bank Product FFP SAFETRACE TX PRODUCT CODE [id number] SAFETRACE TX Unit ABO O Pos SAFETRACE TX UNIT NUMBER [id number] SAFETRACE TX Status TX_TIMEINCHART SAFETRACE TX Blood Bank Product FFP SAFETRACE TX PRODUCT CODE [id number] SAFETRACE TX Performing Organization Address [facility] Phone Number SAFETRACE TX Prepare RBC (08/14/2020 11:54 PM DOT NET ARCHITECT)Only the most recent of2 resultswithin the time period is included. Pathologist Sig nature CROSSMATCH COMPATIBLE SAFETRACE TX Unit ABO O Pos SAFETRACE TX UNIT NUMBER [id number] SAFETRACE TX Status TX_TIMEINCHART SAFETRACE TX Blood Bank Product RED BLOOD CELLS SAFETRACE TX PRODUCT CODE [id number] SAFETRACE TX CROSSMATCH COMPATIBLE SAFETRACE TX Unit ABO O Pos SAFETRACE TX UNIT NUMBER [id number] SAFETRACE TX Status TX_TIMEINCHART SAFETRACE TX Blood Bank Product RED BLOOD CELLS SAFETRACE TX PRODUCT CODE [id number] SAFETRACE TX Performing Organization Address [facility] Phone Number SAFETRACE TX Oxygen saturation, measured (08/14/2020 10:38 AM DOT NET ARCHITECT)Only the most recent of3 resultswithin the time period is included. Pathologist Sig nature O2 Saturation (Measured) 92.4 % [facility] Specimen Blood Performing Organization Address City/[facility]/Zipcode Phone Number [facility] [address] [place] [address] CENTER US abdomen limited (08/14/2020 10:23 AM DOT NET ARCHITECT) Specimen Narrative Performed At FINAL REPORT GE RIS TECHNIQUE: [facility] INDICATION: Thrombocytopenia - evaluate for cirrhosis [...] External Ris In - 08/14/2020 11:55 AM DOT NET ARCHITECT FINAL REPORT TECHNIQUE: [facility] INDICATION: Thrombocytopenia - evaluate for cirrhosis [...] Antigen with HIV-1/2 Antibody (08/14/2020 3:52 AM DOT NET ARCHITECT) Pathologist Sig nature HIV-1 Antigen with Nonreactive Nonreactive [facility] HIV 1&2 Antibody [facility] Specimen Blood Narrative Performed At Cake Tester ID - FREDERIC Damon [facility] Performing Organization Address City/State/Zipcode Phone Number [address] [address] [place] Hepatitis B Panel (08/14/2020 3:52 AM DOT NET ARCHITECT) Pathologist Sig nature Hep B Core Total Ab Nonreactive Nonreactive [facility] Hep B S Ab 747.6 (H) <8.0 mIU/mL [facility] HBsAg Screen Nonreactive Nonreactive [facility] Specimen Blood Narrative Performed At Cake Tester ID - [facility] Performing Organization Address City/[facility] Centercode Phone Number [address] [address] [place] Hepatitis C antibody (08/14/2020 3:52 AM DOT NET ARCHITECT) Pathologist Sig formerly [facility] Hepatitis C Ab Nonreactive Nonreactive [facility] Specimen Blood Narrative Performed At Cake Tester ID - FREDERIC M [facility] Performing Organization Address City/[facility] Centercode Phone Number [address] [address] [place] Hemoglobin A1c (08/14/2020 3:52 AM DOT NET ARCHITECT)Only the most recent of2 resultswithin the time period is included. Pathologist Sig [facility] Hemoglobin A1C 5.4 4.3 - 6.1 % [facility] Specimen Blood Performing Organization Address City/[facility]/Zipcode Phone Number [address] [address] [place] Blood gas, arterial (08/14/2020 3:52 AM DOT NET ARCHITECT)Only the most recent of11 results within the time period is included. Pathologist Sig nature pH, Arterial 7.40 7.35 - 7.45 [facility] pCO2, Arterial 48 (H) 35 - 45 mm Hg [facility] pO2, Arterial 121 (H) 80 - 90 mm Hg [facility] O2 Sat, Arterial 98.4 (H) 96.0 - 97.0 % [facility] HCO3, Arterial 29 21 - 29 mmol/L [facility] Base Excess, Arterial 3.7 (H) -2.0 - 3.0 [facility] mmol/L [facility] Patient Temperature 36.9 [facility] FIO2 36.0 [facility] Specimen Blood, Arterial Performing Organization Address City/[facility] Centercode Phone Number [address] [address] CENTER Lipid panel (08/14/2020 3:52 AM DOT NET ARCHITECT)Only the most recent of2 resultswithin the time period is included. Pathologist Sig nature Triglycerides 96 mg/dL [facility] [place] Cholesterol 79 mg/dL [facility] ICAL [place] HDL 23 mg/dL [facility] [place] LDL Calculated 37 mg/dL [facility] [place] Specimen Blood Narrative Performed At Triglyceride Reference Range: [facility] Low Risk <150 Borderline 150-199 High Risk 200-499 Very High Risk >=500 Cholesterol Reference Range: Low Risk <200 Borderline 200-239 High Risk >240 HDL Cholesterol Reference Range: Low Risk >=60 High Risk <40 LDL Cholesterol Reference Range: Optimal <100 Near Optimal 100-129 Borderline 130-159 High 160-189 Very High >=190 Cake Tester MALLIKA Damon Performing Organization Address City/[facility] Centercode Phone Number [address] [address] CENTER Potassium-Stat Lab (08/13/2020 7:34 PM DOT NET ARCHITECT)Only the most recent of10 results within the time period is included. Pathologist Sig nature Potassium 3.9 3.6 - 5.5 meq/L [facility] Specimen Blood, Arterial Performing Organization Address City/[facility]/Zipcode Phone Number [address] [address] CENTER Sodium Na-Stat Lab (08/13/2020 7:34 PM DOT NET ARCHITECT)Only the most recent of10 results within the time period is included. Pathologist Sig nature Sodium 141 136 - 145 meq/L [facility] Specimen Blood, Arterial Performing Organization Address [facility] Phone Number [address] [address] CENTER Glucose-Stat Lab (08/13/2020 7:34 PM DOT NET ARCHITECT)Only the most recent of10 results within the time period is included. Pathologist Sig nature Glucose 146 (H) 70 - 110 mg/dL [facility] Specimen Blood, Arterial Performing Organization Address [facility] Phone Number [address] [address] CENTER HGB/HCT (H&H)-Stat Lab (08/13/2020 7:34 PM DOT NET ARCHITECT)Only the most recent of10 resultswithin the time period is included. Pathologist Sig nature Hemoglobin 9.2 (L) 13.0 - 16.8 GM/DL [facility] Hematocrit 27.0 (L) 40.0 - 50.0 % [facility] Specimen Blood, Arterial Performing Organization Address [facility] Phone Number [address] [address] C[place] Lactic Acid, Arterial (08/13/2020 7:34 PM DOT NET ARCHITECT)Only the most recent of2 results within the time period is included. Pathologist Sig nature Lactate, Art 1.1 0.5 - 2.2 mmol/L [facility] Specimen Blood, Arterial Narrative Performed At Cake Tester ID - BS [facility] Performing Organization Address [facility] Phone Number [address] [address] CENTER Thromboelastograph (TEG) (08/13/2020 2:30 PM DOT NET ARCHITECT)Only the most recent of3 resultswithin the time period is included. TEG Activated Clotting 7.8 (H) 4.0 - 7.0 [facility] Time minutes [facility] TEG Fibrinogen 58.1 (L) 61.0 - 73.0 [facility] Activity degrees [facility] TEG Platelet 49.3 (L) 55.0 - 65.0 MM [facility] Aggregation [facility] TEG Fibrinolysis 0.5 0.0 - 5.0 % [facility] TEG-H Activated 8.1 (H) 4.0 - 7.0 [facility] Clotting Time minutes [facility] TEG-H Fibrinogen 64.7 61.0 - 73.0 [facility] Activity degrees [facility] TEG-H Platelet 53.8 (L) 55.0 - 65.0 MM [facility] TEG-H Fibrinolysis 0.0 0.0 - 5.0 % [facility] Specimen Blood Performing Organization Address City/[facility] Phone [facility] [address] [address] CENTER Prothrombin time/INR (08/13/2020 2:30 PM DOT NET ARCHITECT)Only the most recent of6 results within the time period is included. Pathologist Sig nature Protime 16.5 (H) 11.9 - 14.2 seconds [facility] INR 1.37 <=5.90 [facility] Specimen Blood Narrative Performed At Effective 01/18/2019: PT Reference Range [facility] Change New: 11.9-14.2 Previous: 11.7-14.7 RECOMMENDED COUMADIN/WARFARIN INR THERAPY RANGES STANDARD DOSE: 2.0-3.0 Includes: PROPHYLAXIS for venous thrombosis, systemic embolization; TREATMENT for venous thrombosis and/or pulmonary embolus. HIGH RISK: Target INR is 2.5-3.5 for patients wiht mechanical heart valves. Performing Organization Address City/[facility] Phone Number [facility] [address] [place] [address] CENTER Comprehensive metabolic panel (08/13/2020 1:44 PM DOT NET ARCHITECT)Only the most recent of2 resultswithin the time period is included. Protein, Total 5.1 (L)Comment: 6.0 - 8.3 [facility] Specimen slightly gm/dL [facility] Albumin 3.0 (L)Comment: 3.5 - 5.0 [facility] Specimen slightly g/dL [facility] Alkaline 65 40 - 150 U/L [facility] Phosphatase [facility] Total Bilirubin 1.0Comment: 0.2 - 1.2 [facility] Specimen slightly mg/dL [facility] Sodium 145 136 - 145 [facility] meq/L [facility] Potassium 3.9Comment: 3.5 - 5.1 [facility] Specimen slightly meq/L [facility] Chloride 106 98 - 107 [facility] meq/L [facility] CO2 29 22 - 29 meq/L [facility] BUN 23 (H) 7 - 21 mg/dL [facility] Creatinine 4.66 (H)Comment: 0.57 - 1.25 [facility] Specimen slightly mg/dL [facility] Glucose 164 (H) 70 - 105 [facility] mg/dL [facility] Calcium 10.4 (H)Comment: 8.4 - 10.2 [facility] Discordant CALCIUM mg/dL [facility] result compared to MEDICAL CENTER previous result; clinical correlation required. AST 24Comment: Specimen 5 - 34 U/L [facility] ALT 13Comment: Specimen 6 - 55 U/L [facility] hemFormerly [facility] EGFR 13Comment: mL/min/1.73 [facility] ESTIMATED GFR IS sq m [facility] NOT ACCURATE MEDICAL CENTER CREATININE CLEARANCE IN PREDICTING GLOMERULAR FILTRATION RATE. ESTIMATED GFR IS NOT APPLICABLE FOR DIALYSIS PATIENTS. Specimen Blood Narrative Performed At Cake Tester ID - PK [facility] Performing Organization Address [facility] Phone Number [address] [address] CENTER Bilirubin, total and direct (08/13/2020 12:30 PM DOT NET ARCHITECT)Only the most recent of2 resultswithin the time period is included. Pathologist Sig nature Total Bilirubin 1.0 0.2 - 1.2 mg/dL [facility] Bilirubin, Direct 0.5 0.1 - 0.5 mg/dL [facility] Specimen Blood Narrative Performed At Cake Tester ID - ARMIDA [facility] Performing Organization Address [facility] Phone Number [address] [address] CENTER Lactate dehydrogenase (LDH) (08/13/2020 12:30 PM DOT NET ARCHITECT)Only the most recent of2 resultswithin the time period is included. Pathologist Sig nature LDH 171 125 - 220 U/L [facility] Specimen Blood Narrative Performed At Cake Tester ID - ARMIDA [facility] Performing Organization Address [facility] Phone Number [address] [address] CENTER aPTT (08/13/2020 12:27 PM DOT NET ARCHITECT)Only the most recent of5 resultswithin the time period is included. Pathologist Sig nature PTT 33.2 22.5 - 36.0 seconds [facility] Specimen Blood Performing Organization Address [facility] Phone [facility] [address] [address] CENTER Fibrinogen (08/13/2020 12:27 PM DOT NET ARCHITECT)Only the most recent of4 resultswithin the time period is included. Pathologist Sig nature Fibrinogen 255 225 - 434 mg/dl [facility] Specimen Blood Performing Organization Address [facility]ode Phone Number [facility] [address] [place] [address] CENTER Platelet count (08/13/2020 12:27 PM DOT NET ARCHITECT)Only the most recent of4 resultswithin the time period is included. Pathologist Sig nature Platelets 138 (L) 150 - 450 K/CU MM [facility] Specimen Blood Narrative Performed At Cake Tester ID - [id number] [facility] Performing Organization Address [facility] Phone Number [address] [address] CENTER Haptoglobin (08/13/2020 12:27 PM DOT NET ARCHITECT) Pathologist Sig nature Haptoglobin 61 14 - 258 mg/dL [facility] Specimen Blood Narrative Performed At Cake Tester ID - ROSIANG [facility] Performing Organization Address [facility] Phone Number [address] [address] CENTER Hepatitis B surface antigen (08/13/2020 12:27 PM DOT NET ARCHITECT) Pathologist Sig nature HBsAg Screen Nonreactive Nonreactive [facility] Specimen Blood Narrative Performed At Specimen is considered negative for HBsA g. [facility] Performing Organization Address [facility] Cent[facility] Phone Number [address] [address] CENTER Reticulocyte count (08/13/2020 12:27 PM DOT NET ARCHITECT)Only the most recent of2 results within the time period is included. Pathologist Sig nature % Retic 1.8 0.5 - 1.8 % [facility] Specimen Blood Narrative Performed At Cake Tester ID - [id number] [facility] Performing Organization Address [facility] Phone Number [address] [address] CENTER CBC with platelet count + automated diff (08/13/2020 11:41 AM DOT NET ARCHITECT)Only the most recent of2 resultswithin the time period is included. Pathologist Sig nature WBC 8.5 3.5 - 10.5 [facility]/L [facility] RBC 2.57 (L) 4.63 - 6.08 [facility] M/L [facility] Hemoglobin 7.6 (L) 13.7 - 17.5 [facility] GM/DL [facility] Hematocrit 23.8 (L) 40.1 - 51.0 % [facility] MCV 92.6 (H) 79.0 - 92.2 fL [facility] MCH 29.6 25.7 - 32.2 pg [facility] MCHC 31.9 (L) 32.3 - 36.5 [facility] RDW 16.5 (H) 11.6 - 14.4 % [facility] Platelets 181 150 - 450 K/CU [facility] MPV 10.0 9.4 - 12.4 fL [facility] nRBC 0 0 - 0 /100 WBC [facility] % Neutros 75 % [facility] % Lymphs 16 % [facility] % Monos 6 % [facility] % Eos 1 % [facility] % Baso 0 % [facility] # Neutros 6.40 (H) 1.78 - 5.38 [facility] # Lymphs 1.34 1.32 - 3.57 [facility] # Monos 0.52 0.30 - 0.82 [facility] # Eos 0.12 0.04 - 0.54 [facility] K/L [facility] # Baso 0.02 0.01 - 0.08 [facility] K/L [facility] Immature 1 0 - 1 % [facility] Granulocytes-Relative [facility] Specimen Blood Performing Organization Address City/[facility]/Zipcode Phone Number [address] [phone] [place] Transfuse plasma (08/13/2020 11:19 AM DOT NET ARCHITECT)Only the most recent of2 resultswithin the time period is included.POC ACTIVATED CLOTTING TIME (08/13/2020 10:58 AM DOT NET ARCHITECT)Only the most recent of6 resultswithin the time period is included. Activated Clotting 120 sec [facility] Comment: [facility] : 74-137 seconds, Baseline CENTER : TESTED AT [address], [address] : Cake Tester/[employer] Worker ID = [id number] for ARELIS CURRY Specimen Blood Performing Organization Address [facility] Cent[facility]ode Phone Number [address] [address] [place] Peripheral Blood Smear - Hold only (08/13/2020 10:15 AM DOT NET ARCHITECT) Pathologist Sig nature Peripheral Smear Save save [facility] Specimen Blood Performing Organization Address [facility] Phone Number [address] [address] [place] DASIA (08/13/2020 8:21 AM DOT NET ARCHITECT) Narrative Performed At Kristy Khan MD 08/13/2020 [...] previously described. ABORH, manual (08/13/2020 8:14 AM DOT NET ARCHITECT)Only the most recent of2 resultswithin the time period is included. Pathologist Sig nature ABO Grouping O [facility] Rh Factor POS [facility] Specimen Blood Performing Organization Address City/State/[facility] Centercode Phone Number [facility] [address] [place] [address] Type and screen, automated (08/13/2020 6:28 AM DOT NET ARCHITECT) Pathologist Sig nature Ab Scrn NEGATIVEComment: [facility] entered manually echo [facility] 1 Specimen Blood Performing Organization Address City/[facility]/Zipcode Phone Number [facility] [address] [place] [address] after 09/11/2019 Insurance Payer Benefit Plan / Subscriber ID Effective Dates Phone Addre ss Type Group MEDICARE MEDICARE A B [id number] 2020-Presen Medicare t [employer]ET[employer] - MGD CARE [employer] INDEMNITY [id number] 2000-Present Comm NON CONTR Advance Directives For more information, please contact: [phone] Code Status Date Activated Date Inactivated Comments Full Code 08/13/2020 6:12 AM 08/20/2020 1:25 PM This code status was determined by: Patient
--- OUTSIDE RECORDS SUMMARY | 2020-09-11 12:26 | XMS REPORT | Continuity of Care Document ---
:1955 Author Organization [employer] Information 5 examples Care Team Providers Name Role Phone [employer] Information 5 examples Unavailable Un available Problems Problem Status Onset Classification Date Comments Sourc e Date Reported N18.6 Active 017 [facility] WOUND INFECTION Active 017 [place] Infection 03/07/2017 following a 017 [place] procedure, initial encounter Arteriovenous 03/07/2017 fistula, acquired 017 [place] ESRD Active 017 [facility] Anxiety (finding) Active Problem 06/04/2017 M H OPID [address] [facility] Coronary Active Problem 06/04/2017 [facility] arteriosclerosis [place], (disorder) [facility] Conduction Active Problem 06/04/2017 [facility] disorder of the [place], heart (disorder) [facility] Cerebrovascular Active Problem 06/04/2017 OPID accident [facility], (disorder) [facility] Dependence on Active Problem 06/04/2017 not using at OPID continuous this time [facility] , positive airway pressure [facility] ventilation (finding) Diabetes mellitus Active Problem 06/04/2017 M H OPID (disorder) [facility] End stage renal Active Problem 06/04/2017 Temporary fistula placed 2-3 months ago. pre op for fistula placement in left arm. OPID disease (disorder) hemodialysi s at home [facility] Fracture of Resolved Problem 06/04/20172012 OPID shoulder [facility], (disorder) [facility] Hyperlipidemia Active Problem 06/04/2017 O PID (disorder) [facility] Hypertensive Active Problem 06/04/2017 OPI D disorder, systemic [place], arterial (disorder) [facility] Intracranial Resolved Problem 06/04/2017 patietn had O PID venous thrombosis stroke [place], (disorder) [facility] Myocardial Resolved Problem 06/04/20171998 OPID infarction [facility] , (disorder) [facility] Obesity (disorder) Active Problem 06/04/[address] [facility] [place], (disorder) [facility] Sleep apnea Active Problem 06/04/2017 OPID (finding) [facility] Medications Medication Details Route Status Patient Ordering Order Source Instructions Provider Date heparin 5,000 unit, Inactive Route: SUB-Q, 2016 [facility] Q8H, Dosing Weight 123.182, kg, Start date: 06/01/17 16:00:00 CDT, Duration: 30 day, Stop date: 07/01/17 8:00:00 [employer]ACH[employer] ADJUSTER Ofirmev 1,000 mg, Inactive Route: IV, 2016 [facility] ONCE, Dosing Weight 123.182, kg, Start date: 06/01/17 14:37:00 CDT, Stop date: 06/01/17 14:37:00 CDT Insulin Lispro Notes: Roll in Inactive palms of hands 2016 [facility] gently; Do not shake `vigorously. (Same as: Humalog ) "Single Patient Use Only " WASTE: F/P - Black; E - [employer]ash Bin Stable for 28 days at room temperature. Expires in days from D ate Acetazolamide 250 mg, Route: Inactive IV, ONCE, 2016 [facility] Dosing Weight 123.182, kg, PRN Cramps, Start date: 06/01/17 14:07:00 CDT Ondansetron Notes: (Same Inactive as: Zofran) 2016 [facility] MEDICATION WASTE Product Size: 4 mg Product Wasted: ___ mg Meperidine Notes: (Same Inactive as: Demerol) 2016 [facility] "Use Precaution in Elderly, Seizure disorders, and Renal impairment&quot ; Promethazine 6.25 mg, Route: Inactive IVPB, ONCE, 2016 [facility] Dosing Weight 123.182, kg, PRN Nausea & Vomiting, Start date: 06/01/17 14:07:00 CDT Fentanyl Notes: (Same Inactive as: Sublimaze) 2016 [facility] Preservative free. Hydromorphone 0.5 mg, 0.5 mL, Inactive H Route: IVP, 2016 [facility] Drug form: INJ, Q5Min, Dosing Weight 123.182, kg, PRN Pain Score 7-10, Start date: 06/01/17 14:07:00 CDT, Duration: 4 doses or times, Stop date: Limited # of times Flumazenil Notes: (Same Inactive as: Romazicon) 2016 [facility] Naloxone Notes: Same as Inactive Narcan 2016 [facility] Diphenhydramine Notes: (Same Inactive as: Benadryl) 2016 [facility] Hydralazine Notes: (Same Inactive as: Apresoline) 2016 [facility] Push over 5 minutes Metoprolol Notes: (Same Inactive as: Lopressor) 2016 [facility] Push over 2 minutes Acetaminophen Notes: Max Inactive acetaminophen 2016 [facility] 4000 mg/day (4 gm/day). (Same as: Tylenol Extra Strength) Acetaminophen 300 2 tab, PO, Q4H, Active MG / Codeine PRN Pain Score 2016 [facility] Phosphate 30 MG 4-6, # 24 tab, Oral Tablet 0 Refill(s) Zofran Notes: (Same Inactive as: Zofran) 2016 [facility] MEDICATION WASTE Product Size: 4 mg Product Wasted: ___ mg acetaminophen-cod Notes: Do not Inactive eine #3 exceed 4gm/day 2016 [facility] of acetaminophen. (Same as: Tylenol with Codeine # 3) Acetaminophen Notes: Do not Inactive exceed 4 2016 [facility] gm/day. (Same as: Tylenol) vancomycin (ANES) Route: IV, Drug Inactive 06/01 form: INJ, 2016 [facility] ONCE, Stop date: 06/01/17 12:53:00 CDT propofol (ANES) Route: IV, Drug Inactive form: INJ, 2016 [facility] ONCE, Stop date: 06/01/17 12:53:00 CDT lidocaine (ANES) Route: IV, Drug Inactive form: INJ, 2016 [facility] ONCE, Stop date: 06/01/17 12:53:00 CDT fentaNYL (ANES) Route: IV, Drug Inactive form: INJ, 2017 [facility] ONCE, Stop date: 06/01/17 12:53:00 CDT Cefazolin 2 gm, Route: Inactive IVPB, Drug 2016 [facility] form: INJ, ONCALL, Dosing Weight 123.636, kg, Start date: 06/01/17 11:00:00 CDT, Duration: 1 doses or times, ABX Indication: Surgical Prophylaxis Vancomycin 1 gm, Route: Inactive IV, ONCE, 2016 [facility] Dosing Weight 123.636, kg, Start date: 06/01/17 10:14:00 CDT, Stop date: 06/01/17 10:14:00 CDT, ABX Indication: Surgical Prophylaxis Benadryl Notes: (Same Inactive as: Benadryl) 2016 [facility] Ceftriaxone 1 gm, Route: Inactive IVPB, Drug 2016 [facility] form: PDR/INJ, ONCE, Dosing Weight [...] Oral Capsule PO, BID, X 10 2017 munger [Keflex] day, # 20 cap, 0 Refill(s) doxycycline 100 mg = 1 tab, Active hyclate 100 MG PO, Q12H, X 10 2017 [place] Oral Tablet day, # 20 tab, 0 Refill(s) heparin Notes: porcine Inactive heparin 2016 [facility] Metoclopramide Notes: (Same Inactive as: Reglan) 2016 [facility] Flumazenil Notes: (Same Inactive as: Romazicon) 2016 [facility] Naloxone Notes: Same as Inactive Narcan 2016 [facility] Fentanyl Notes: (Same Inactive as: Sublimaze) 2016 [facility] Preservative free. Ondansetron 4 mg, Route: Inactive IVP, ONCE, 2016 [facility] Dosing Weight 124.091, kg, PRN Nausea & Vomiting, Start date: 02/26/17 11:26:00 CDT Labetalol Notes: (Same Inactive as: Normodyne, 2016 [facility] Trandate) Push over 2 minutes Give bolus over 2-3 minutes. Hydralazine Notes: (Same Inactive as: Apresoline) 2016 [facility] t Push over 5 minutes Acetaminophen 300 2 tab, PO, Q4H, Active MG / Codeine PRN Pain Score 2016 [place] Phosphate 30 MG 4-6, # 24 tab, Oral Tablet 0 Refill(s) Zofran Notes: (Same Inactive as: Zofran) 2016 [facility] MEDICATION WASTE Product Size: 4 mg Product Wasted: ___ mg acetaminophen-cod Notes: Do not Inactive eine #3 exceed 4gm/day 2016 [facility] of acetaminophen. (Same as: Tylenol with Codeine # 3) Acetaminophen Notes: Do not Inactive exceed 4 2016 [facility] gm/day. (Same as: Tylenol) protamine (ANES) Route: IV, Drug Inactive form: INJ, 2016 [facility] , Stop date: 02/26/17 10:10:00 CDT heparin (ANES) Route: IV, Drug Inactive form: INJ, 2016 [facility] , Stop date: 02/26/17 10:06:00 CDT propofol (ANES) Route: IV, Drug Inactive form: INJ, 2016 [facility] , Stop date: 02/26/17 9:41:00 CDT fentaNYL (ANES) Route: IV, Drug Inactive form: INJ, 2016 [facility] , Stop date: 02/26/17 9:31:00 CDT midazolam (ANES) Route: IV, Drug Inactive form: SOLN, 2016, Stop date: 02/26/17 9:26:00 CDT vancomycin (ANES) Route: IV, Drug Inactive 02/26 (ANES) form: INJ, 2016 [facility] Start date: 02/26/17 9:09:00 CDT, Stop date: 02/26/17 10:09:00 CDT sodium chloride Route: IV, Inactive 0.9% 500 ml INJ Total Volume: 2016 [place] (ANES) 500, Start date: 02/26/17 8:49:00 CDT, Stop date: 02/26/17 9:49:00 CDT Cefazolin Notes: Same as: Inactive Ancef 2017 [facility] insulin detemir 15 UNITS, Active 100 UNT/ML SUB-Q, BID, am 2016 [facility] est Injectable AND pm MEALS Solution [Levemir] Probiotic Formula 1 cap, PO, Active Daily, 2016 [facility] PROBIOTIC PEARLS COMPLETE( DIGESTIVE hEALTH) Multiple Vitamins 1 tab, PO, Active oral tablet Daily, 2016 [facility] SPECTRAVITE ( ULTRA MEN 50 PLUS) Calcium Carbonate 250 mg, PO, BID Active 2016 [facility] ferrous sulfate 325 mg = 1 tab, Active 325 mg oral PO, TID 2016 [facility] enteric coated tablet calcitriol 0.25 0.25 microgram Active H mcg oral capsule = 1 cap, PO, 2016 [place] Every Other Day rosuvastatin 5 mg 5 mg = 1 tab, Active oral tablet PO, Daily 2016 [facility] allopurinol 100 50 mg, PO, Active mg oral tablet Daily 2016 [facility] Hydralazine 50 mg = 1 tab, Active Hydrochloride 50 PO, TID [address] [facility] [address] MG Oral Tablet carvedilol 6.25 6.25 mg = 1 Active mg oral tablet tab, PO, BID 2016 [facility] gabapentin 100 MG 200 mg = 2 cap, Active Oral Capsule PO, AFTER 2017 [facility] DIALYSIS sevelamer 800 mg = 1 tab, Active carbonate 800 MG PO, TID-Meals 2016 [place] Oral Tablet [Renvela] Sodium 650 mg = 1 tab, Active Bicarbonate 650 PO, TID 2016 [facility] t MG Oral Tablet Furosemide 40 MG 40 mg = 1 tab, Active Oral Tablet PO, Bedtime 2016 [facility] t Furosemide 40 MG 80 mg = 2 tab, Active Oral Tablet PO, QAM 2016 [facility] apixaban 2.5 MG 2.5 mg = 1 tab, Active Oral Tablet PO, BID 2016 [facility] [Eliquis] Allergies, Adverse Reactions, Alerts Substance Category Reaction Severity Reaction Status Date Comments S ource type Reported NKFA Assertion Drug Active allergy [facility] t Immunizations No Data Provided for This Section Results Order Name Results Value Reference Date Interpretation Comments Mary rce Range CHEM PANEL POC BUN 35 7 - 22 06/01 [facility] CHEM PANEL POC Glucose 118 70 - 99 06/01 [facility] CHEM PANEL POC Sodium 142 135 - 145 06/01 [facility] CHEM PANEL POC 4.6 3.5 - 5.1 06/01 Potassium [facility] CHEM PANEL POC Chloride 101 95 - 109 06/01 [facility] CHEM PANEL POC 11.6 14.0 - 10 Hemoglobin 18.0 [facility] CHEM PANEL POC 34.0 42.0 - 06/01 Hematocrit 54.0 [facility] HEMATOLOGY POC 12.2 14.0 - 06/01 Hemoglobin 18.0 [facility] HEMATOLOGY POC 36.0 42.0 - 10 Hematocrit 54.0 [facility] HEMATOLOGY POC BUN 33 7 - 22 06/01 [facility] HEMATOLOGY POC Glucose 173 70 - 99 06/01 [facility] HEMATOLOGY POC Chloride 100 95 - 109 06/01 [facility] HEMATOLOGY POC 4.3 3.5 - 5.1 06/01 Potassium [facility] HEMATOLOGY POC Sodium 142 135 - 145 06/01 [facility] CHEM PANEL eGFR 11 03/04 Comment: The [facility] eGFR is calculated using the [...] 10.8 10.0 - 03/04 MH 20.0 /2016 [facility] CHEM PANEL Calcium Lvl 9.2 8.5 - 10.5 03/04 [facility] CHEM PANEL BUN 35 7 - 22 03/04 [facility] CHEM PANEL Creatinine 5.40 0.50 - 07 MH Lvl 1.40 /2017 [facility] CHEM PANEL Glucose Lvl 156 70 - 99 03/04 [facility] CHEM PANEL Sodium Lvl 138 135 - 145 03/04 [facility] CHEM PANEL Potassium 3.8 3.5 - 5.1 / MH Lvl /2016 [facility] CHEM PANEL Chloride Lvl 97 95 - 109 03/04 [facility] CHEM PANEL CO2 34 24 - 32 03/04 [facility] HEMATOLOGY Segs-Bands # 5.4 1.5 - 8.1 03/04 [facility] HEMATOLOGY Basophils 0.5 0.0 - 1.0 03/04 [facility] HEMATOLOGY Monocytes # 1.1 0.0 - 0.8 03/04 [facility] HEMATOLOGY Lymphocytes 3.4 1.0 - 5.5 / MH # /2016 [facility] HEMATOLOGY Basophils # 0.1 0.0 - 0.2 03/04 [facility] HEMATOLOGY Eosinophils 0.4 0.0 - 0.5 / MH # /2016 [facility] HEMATOLOGY Segs 52.7 45.0 - 03/04 MH 75.0 /2017 [facility] HEMATOLOGY Lymphocytes 32.9 20.0 - 03/04 MH 40.0 /2017 [facility] HEMATOLOGY Monocytes 10.3 2.0 - 12.0 03/04 [facility] HEMATOLOGY Eosinophils 3.6 0.0 - 4.0 03/04 [facility] HEMATOLOGY MCV 91.1 80.0 - 03/04 MH 94.0 /2017 [facility] HEMATOLOGY RBC 4.52 4.70 - 03/04 MH 6.10 /2016 [facility] HEMATOLOGY Hgb 13.5 14.0 - 03/04 MH 18.0 /2016 [facility] HEMATOLOGY MCH 29.9 27.0 - 03/04 MH 31.0 /2016 [facility] HEMATOLOGY Hct 41.2 42.0 - 03/04 MH 54.0 /2016 [facility] HEMATOLOGY MPV 8.1 7.4 - 10.4 07/13 MH /2016 [facility] HEMATOLOGY MCHC 32.8 32.0 - 03/04 MH 36.0 /2016 [facility] HEMATOLOGY RDW 14.1 11.5 - 03/04 MH 14. /2016 [facility] HEMATOLOGY Platelet 114 133 - 450 03/04 /2016 [facility] HEMATOLOGY WBC 10.3 3.7 - 10.4 03/04 /2016 [facility] HEMATOLOGY POC 13.9 14.0 - 02/26 Hemoglobin 18.0 /2016 [facility] HEMATOLOGY POC Glucose 126 70 - 99 02/26 /2016 [facility] HEMATOLOGY POC BUN 43 7 - 22 02/26 /2016 [facility] HEMATOLOGY POC 41.0 42.0 - 02/26 Hematocrit 54.0 /2016 [facility] HEMATOLOGY POC 4.1 3.5 - 5.1 02/26 Potassium /2016 [facility] HEMATOLOGY POC Chloride 103 95 - 109 02/26 /2016 [facility] HEMATOLOGY POC Sodium 142 135 - 145 02/26 /2016 [facility] ELECTROLYTE POC Sodium 141 135 - 145 02/26 S /2016 [facility] ELECTROLYTE POC BUN 46 7 - 22 02/26 S /2016 [facility] ELECTROLYTE POC Chloride 103 95 - 109 02/26 S /2016 [facility] ELECTROLYTE POC 4.3 3.5 - 5.1 02/26 S Potassium /2016 [facility] ELECTROLYTE POC Glucose 163 70 - 99 02/26 S /2016 [facility] ELECTROLYTE POC 15.6 14.0 - 02/26 S Hemoglobin 18.0 /2016 [facility] ELECTROLYTE POC 46.0 42.0 - 02/26 S Hematocrit 54.0 /2016 [facility] BLOOD BANK ABO/Rh O POS 02/24 RESULTS /2016 [facility] BLOOD BANK Antibody Negative 02/24 RESULTS Scrn (02/24/17 10:22 AM) /2016 [facility] est ELECTROLYTE AGAP 13.1 10.0 - 02/24 S 20.0 [facility] ELECTROLYTE eGFR 11 02/24 Result Comment: The [facility] eGFR is calculated using the [...] Lvl 9.3 8.5 - 10.5 07/05 S [facility] ELECTROLYTE Chloride Lvl 102 95 - 109 07/05 S /2016 [facility] ELECTROLYTE CO2 28 24 - 32 07/ S /2016 [facility] ELECTROLYTE Sodium Lvl 139 135 - 145 07/05 S /2016 [facility] ELECTROLYTE Potassium 4.1 3.5 - 5.1 07/05 S Lvl /2016 [facility] ELECTROLYTE Creatinine 5.30 0.50 - 07/ S Lvl 1.40 /2016 [facility] ELECTROLYTE BUN 47 7 - 22 07/ S /2016 [facility] ELECTROLYTE Glucose Lvl 129 70 - 99 / S [facility] HEMATOLOGY PT 12.7 12.0 - 07 14.7 /2016 [facility] HEMATOLOGY INR 0.93 0.85 - 0705 1.17 /2016 [facility] HEMATOLOGY PTT 28.3 22.9 - 07/ 35.8 /2016 [facility] HEMATOLOGY MPV 8.7 7.4 - 10.4 / [facility] HEMATOLOGY Platelet 120 133 - 450 02/24 [facility] HEMATOLOGY MCHC 32.9 32.0 - 07/ 36.0 /2016 [facility] HEMATOLOGY RDW 14.7 11.5 - 07/ 14.5 /2016 [facility] HEMATOLOGY RBC 4.73 4.70 - 07/05 6.10 /2017 [facility] HEMATOLOGY Hgb 14.1 14.0 - 07/ 18.0 /2017 [facility] HEMATOLOGY WBC 12.8 3.7 - 10.4 07/ /2016 [facility] HEMATOLOGY MCV 90.2 80.0 - 07/ 94.0 /2016 [facility] HEMATOLOGY Hct 42.7 42.0 - 07/ 54.0 /2016 [facility] MCH 29.7 27.0 - 07/05 MH 31.0 /2017 [facility] Basophils # 0.1 0.0 - 0.2 07/ [place] HEMATOLOGY Monocytes 8.0 2.0 - 12.0 07/ [facility] HEMATOLOGY Basophils 1.0 0.0 - 1.0 / /2016 [facility] HEMATOLOGY Segs-Bands # 7.6 1.5 - 8.1 02/24 [facility] HEMATOLOGY Eosinophils 3.4 0.0 - 4.0 / /2016 [facility] HEMATOLOGY Lymphocytes 3.6 1.0 - 5.5 / # /2017 [facility] HEMATOLOGY Lymphocytes 28.2 20.0 - 07 MH 40.0 /2016 [facility] HEMATOLOGY Eosinophils 0.4 0.0 - 0.5 02/24 # /2017 [facility] HEMATOLOGY Monocytes # 1.0 0.0 - 0.8 02/24 /2016 [facility] HEMATOLOGY Segs 59.4 45.0 - 07 75.0 /2016 [facility] SPECIAL Hgb A1C 8.0 <=5.6 % 02/24 CHEMISTRY /2016 [facility] Pathology Reports No Data Provided for This Section Diagnostic Reports Report Value Date Source Chest 1view DX Chest 1view DX 02/24/2017 VLADIMIR [facility] CLINICAL HISTORY:pre-op for fistula placement in [...] abnormality is noted in the chest. SL: [id number] Consultation Notes No Data Provided for This Section Discharge Summaries No Data Provided for This Section History and Physicals No Data Provided for This Section Vital Signs Vital Sign Value Date Comments Source Systolic (mm Hg) 120 06/01/2017 [facility] Diastolic (mm Hg) 70 06/01/2017 [facility] Respitory Rate 15 06/01/2017 [facility] Systolic (mm Hg) 108 06/01/2017 [facility] [place] Diastolic (mm Hg) 56 06/01/[address] Respitory Rate 19 06/01/2017 [place] Systolic (mm Hg) 118 06/01/2017 [place] Diastolic (mm Hg) 70 06/01/[address] Respitory Rate 10 06/01/2017 [facility] Temperature Oral (F) 98.5 F 06/01/2017 [place] BMI Calculated 38.97 05/31/2017 [facility] Height 177.8 cm 05/31/2017 [facility] Weight 123.182 05/31/2017 [place] Systolic (mm Hg) 126 03/04/2017 [place] Diastolic (mm Hg) 88 03/04/[address] [facility] [address] Temperature Oral (F) 97.9 F 03/04/2017 [place] Respitory Rate 20 03/04/2017 [facility] Heart Rate 70 03/04/2017 [facility] Respitory Rate 20 03/04/2017 [facility] Heart Rate 70 03/04/2017 [facility] Systolic (mm Hg) 128 03/04/2017 [place] Diastolic (mm Hg) 71 03/04/[address] [facility] [address] BMI Calculated 42.69 03/04/2017 [facility] Height 170.18 cm 03/04/2017 [facility] Weight 123.636 03/04/2017 [place] Respitory Rate 20 03/04/2017 [facility] Heart Rate 73 03/04/2017 [facility] Temperature Oral (F) 99 F 03/04/2017 [...] [place] Diastolic (mm Hg) 71 02/26/[address] [facility] [address] Temperature Oral (F) 97.9 F 02/26/2017 [place] Heart Rate 73 02/24/2017 [facility] Temperature Oral (F) 99.2 F 02/24/2017 [facility] Weight 124.091 02/24/2017 [facility] BMI Calculated 39.25 02/24/2017 [facility] Height 177.8 cm 02/24/2017 [facility] Encounters Location Location Encounter Encounter Reason Attending ADM DC Stat us Source Details Type Number For Provider Date Date Visit [facility] Outpt Diag [id number] [facility] 02/24 02/25 [facility] [place] [facility] [id number] Elder 02/26 02/26 [facility] [place] [facility] Emergency [id number] Bill Khan 03/04 03/04 [facility]2016 [facility] [id number] Elder 06/01 06/01 [facility] [place] [facility] [place] [facility] Procedures Procedure Code Date Perfomer Comments Source Central line [id number] for hemodialysis [facility] insertion<sup>1</s 7 up> AV - Creation of [id number] [facility] arteriovenous 6 fistula Procedure<sup>2, [id number] left ACL [facility] 3</sup> repairLeft knee arthroscopy Procedure [id number] OP[facility] Procedure<sup>1, [id number] left ACL [facility] 2</sup> repairLeft knee [facility] , arthroscopy [facility] Assessment and Plan Assessment and Plan Date Source Extracted from:Title: Clinical Document 02/26/2017 [facility] Author: Elder Reynolds MD Date: 02/26/17 PATIENT NAME: SIMONE WALLER DATE OF OPERATION: 02/26/2017 PREOPERATIVE DIAGNOSES: 1. End-stage renal disease. 2. Diabetes. 3. History of stroke. 4. Hypertension. POSTOPERATIVE DIAGNOSES: 1. End-stage renal disease. 2. Diabetes. 3. History of stroke. 4. Hypertension. PROCEDURE(S): 1. Left arm venogram. 2. Creation of left wrist AV fistula. 3. Superior venacavogram. SURGEON: Elder Reynolds MD INFORMATION SECURITY ENGINEER: CHANTAL Martines ANESTHESIA: General by [place]. [...]
--- OUTSIDE RECORDS SUMMARY | 2020-09-11 12:31 | XMS REPORT | Continuity of Care Document ---
:1955 Author Organization [facility] t Address [address] [place] [address] [place] [address] Care Team Providers Name Role Phone Nando Olson MD Primary Care Physician Yvrose Flores MD Attending Clinician Bill HART Attending Clinician Orlando Reis Attending Clinician Unavailable YVROSE FLORES Attending Clinician Unavailable Erin GUAJARDO Attending Clinician Deysi DEL RIO, Andreia Attending Clinician Jose HART Attending Clinician Rodolfo ALTAMIRANO Attending Clinician Unavailable Edmar Reynolds Attending Clinician Bill Attending Clinician YVROSE FLORES Admitting Clinician Unavailable Payers Payer Name Policy Type Policy Effective Date Expiration Date Sour ce Number MEDICAREMEDICARE A [id number] YENNY Serna [id number] 2019- 00:00:00 - Medical [facility] AETNA - MGD CAREAETNA [id number] YENNY Kelly INDEMNITY NON 00:00:00 - Medical [id number] Ce nter -PresentComm Problems Condition Condition [...] Mem oria 0-02 11:32:00 l N18.6 00:00: [place] 00 Active 05/24/2017 [facility] Type 2 Type 2 Disease Active [place] diabetes diabetes 05-19 Method i mellitus mellitus 00:00: st 00 WOUND Diagnosis Active 2017-06-08 Mem oria INFECTION 7-13 09:19:00 l WOUND 14:12: [place] INFECTION 00 Active 03/04/2017 [facility] ESRD Diagnosis Active 2017-02-26 Mem oria 6-23 06:06:00 l ESRD 00:00: [place] 00 Active 02/12/2017 [facility] Anxiety Problem Active 2017-06-04 Dayron boubacar (finding) 1 02:00:03 l Anxiety 00:00: [place] (finding) 00 Active 08/23/2011 Problem 06/04/2017 [facility] Fracture Problem Resolve 2017-06-04 Me moria of d 02:00:03 l shoulder Fracture Herm doris (disorder) of shoulder (disorder) Resolved Problem 06/04/20172012 [facility] Intracrani Problem Resolve 2017-06-04 Memoria al venous d 02:00:03 l thrombosis Michael n (disorder) Intracrani al venous thrombosis (disorder) Resolved Problem 06/04/2017 patietn had stroke [facility] Myocardial Problem Resolve 2017-06-04 Memoria infarction d 02:00:03 l (disorder) Michael n Myocardial infarction (disorder) Resolved Problem 06/04/20171998 [facility] Conduction Problem Active 2017-06-04 M emoria disorder 02:00:03 l of the [place] heart Conduction (disorder) disorder of the heart (disorder) Active Problem 06/04/2017 [facility] Cerebrovas Problem Active 2017-06-04 M emoria cular 02:00:03 l accident [place] (disorder) Cerebrovas cular accident (disorder) Active Problem 06/04/2017 [facility] Dependence Problem Active 2017-06-04 M emoria on 02:00:03 l continuous Michael n positive Dependence airway on pressure continuous ventilatio positive n airway (finding) pressure ventilatio n (finding) Active Problem 06/04/2017 not using at this time [facility] Diabetes Problem Active 2017-06-04 Mem oria mellitus 02:00:03 l (disorder) Diabetes He rmann mellitus (disorder) Active Problem 06/04/2017 [facility] End stage Problem Active 2017-06-04 Me moria renal 02:00:03 l disease End [place] (disorder) stage renal disease (disorder) Active Problem 06/04/2017 Temporary fistula placed 2-3 months ago. pre op for fistula placement in left arm.hemodi alysis at home [facility] Hyperlipid Problem Active 2017-06-04 M emoria emia 02:00:03 l (disorder) Michael n Hyperlipid emia (disorder) Active Problem 06/04/2017 [facility] Hypertensi Problem Active 2017-06-04 M emoria ve 02:00:03 l disorder, Colin systemic Hypertensi arterial ve (disorder) disorder, systemic arterial (disorder) Active Problem 06/04/2017 [facility] Obesity Problem Active 2017-06-04 Dayron boubacar (disorder) 02:00:03 l Obesity [place] (disorder) Active Problem 06/04/2017 [facility] Peripheral Problem Active 2017-06-04 M emoria vascular 02:00:03 l disease Colin (disorder) Peripheral vascular disease (disorder) Active Problem 06/04/2017 swolling [facility] Sleep Problem Active 2017-06-04 Memor ia apnea 02:00:03 l (finding) Sleep Michael n apnea (finding) Active Problem 06/04/2017 [facility] ESRD on ESRD on Disease Active [facility] Infection Problem 2017-0 2017-03-07 2017-03-07 Memoria following 03-04 04:57:57 04:57:57 l a 05:00: [place] procedure, Infection 00 initial following encounter a procedure, initial encounter 03/04/2017 03/07/2017 [facility] Arterioven Problem 2016-2017-03-07 2017-03-07 Memoria ous 03-04 04:57:57 04:57:57 l fistula, 05:00: [place] acquired Arterioven 00 ous fistula, acquired 7 03/07/2017 [facility] Allergies, Adverse Reactions, Alerts Allergy Allergy Status Severity Reaction(s) Onset Inactive Treating Comm ents Source Name Type Date Date Clinician NKFA NKFA Active Lukasz Shaw Family History Family Member Diagnosis Comments Start Date Stop Date Source Natural mother Diabetes [place] [facility] Natural mother Hypertension [place] [facility] Social History Social Habit Start Date Stop Date Quantity Comments Source History of tobacco [facility] sm[facility] History SDAK [facility] Std [facility] History [facility] - Alcohol Binge Medical Jen[address] ter Sex Assigned At [facility] - [facility] Exposure to Not sure [facility] - SARS-CoV-2 (event) [facility] Cigarettes smoked 2020-09-03 2020-09-[address] [facility] - current (pack per 00:00:00 00:00:00 Medical Center day) - Reported Cigarette 2020-09-03 2020-09-[address] [facility] - pack-years 00:00:00 00:00:00 [facility] Tobacco use and 2020-09-03 2020-09-[address] [facility] - exposure 00:00:00 00:00:00 [facility] Alcohol intake 2020-09-03 2020-09-[address] [facility] - 00:00:00 00:00:00 non-drinker Medical Gabriel nunez (finding) History [facility] 2020-08-08 2020-08-[address] [facility] - Alcohol Frequency 00:00:00 00:00:00 [facility] Social History 2017-02-24 2017-02-24 Noemi shin 13:49:27 13:49:27 Smoking Status Start Date Stop Date Source Former smoker 2020-09-03 00:00:00 2020-09-03 00:00:[address] [facility] Medications Ordered Filled Start Stop Current Ordering Indication Dosage Frequency Signature Comments Components Source Medication Medication Date Date Medication? Clinician (SIG) Name Name carvediloL Yes 12.5mg Take 12.[address] (COREG) 25 1-12 mg by [facility] - MG tablet 11:09: mouth 2 Medic al 42 (two) Center times daily with breakfast and dinner . allopurinoL Yes 100mg QD Take [address] (ZYLOPRIM) 1-12 mg by [facility] - 100 MG 11:09: mouth Medical tablet 42 daily. [place] aspirin 81 Yes 81mg QD Take [address] MG EC 1-12 by mouth [facility] - tablet 11:09: daily. Medical 42 Center multivitami Yes 1{capsu QD Take [address] n capsule 1-12 le} capsule by Luke s - 11:09: mouth Medical 42 daily. [place] cyanocobala Yes 1000ug Inject [facility] min 1-12 1,000 mcg [facility] - (VITAMIN 11:09: intramuscu Med ical B-12) 1,000 42 larly Center mcg/mL every 30 injection (thirty) days. apixaban Yes 2.5mg Q.5D Take 2.[address] (ELIQUIS) 1-12 mg by [facility]ukes - 2.5 mg Tab 11:09: mouth 2 Medi amberly tablet 42 (two) Center times daily. ferrous 2019-08- Yes 325mg Take 1 [facility] [...] 00 :00 total) by Center mouth daily. hydrALAZINE 2019-08- No 100mg Q.5D Take [...] 3 mL 25 x 00:00: on, st 5/8" 00 unspecified syringe type cyanocobala 2019-08- No [...] OR type BUTTOCKS EVERY 30 DAYS cyanocobala 2019- No Intestinal [...] daily. st enteric 55 coated tablet syringe 2019- No Intestinal As Tennille ston with needle 02-22 11-04 malabsorpti Directed Methodi 3 mL 25 x 00:00: 00:00 on, st 58" 00 :00 unspecified syringe type cyanocobala 2019- No Intestinal 1000ug Q30D Inject 1 Borja min 1,000 7 02-11 malabsorpti mL (1,000 Methodi mcg/mL 00:00: 00:00 on, mcg total) st injection 00 :00 unspecified into the type shoulder, thigh, or buttocks every 30 (thirty) days. Start 1 week after surgery. 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 [...] en 0-10 acetaminop l 19:07: hen 4000 [place] 00 mg/day (4 gm/day). (Same as: Tylenol Extra Strength) Acetaminoph 2016-08 Yes 2 tab, PO, Memoria en 300 MG / 0-10 Q4H, PRN l Codeine 19:01: Pain Score Herm doris Phosphate 00 4-6, # 24 30 MG Oral tab, 0 Tablet Refill(s) Zofran 2016-08 No Notes: Memoria 0-10 (Same as: l 18:58: Zofran) MEDICATION WASTE Product Size: 4 mg Product Wasted: ___ mg acetaminoph 2016-08 No Notes: Do M emoria en-codeine 0-10 not exceed l #3 18:58: 4gm/day of [place] 00 acetaminop hen. (Same as: Tylenol with Codeine # 3) Acetaminoph 2016-08 No Notes: Do M emoria en 0-10 not exceed l 18:58: 4 gm/day. Colin (Same as: Tylenol) vancomycin 2016-08 No Route: IV, M emoria (ANES) 0-10 Drug form: l 17:53: INJ, ONCE, Stop date: 06/01/17 12:53:00 CDT propofol 2016-08 No Route: IV, Mem oria (ANES) 0-10 Drug form: l 17:53: INJ, ONCE, Colin 00 Stop date: 06/01/17 12:53:00 CDT lidocaine 2016-08 [...] Benadryl) Ceftriaxone No 1 gm, Memor ia 7- Route: l 21:11: IVPB, Drug form: PDR/INJ, ONCE, Dosing Weight 123.636, kg, Priority: STAT, Start date: 03/04/17 16:11:00 CDT, Duration: 1 doses or times, Stop date: 03/04/17 16:11:00 CDT, ABX Indication : Skin/Soft Tissue Infection Vancomycin No 2001 mg: Me moria 7-13 infuse l 21:11: over 2.5 hours MEDICATION WASTE Product Size: 1000 mg Product Wasted: ___ mg Cephalexin Yes 500 mg = 1 M emoria 500 MG Oral 7-13 cap, PO, l Capsule 21:00: BID, X 10 Anel nn [Keflex] 00 day, # 20 cap, 0 Refill(s) doxycycline Yes 100 mg = 1 Memoria hyclate 100 7-13 tab, PO, l MG Oral 20:59: Q12H, X 10 Herm doirs Tablet 00 day, # 20 tab, 0 Refill(s) heparin No Notes: Memoria 7-07 porcine l 21:00: heparin Metoclopram No Notes: Dayron boubacar marie 7-07 (Same as: l 16:26: Reglan) Flumazenil No Notes: Memor ia 7- (Same as: l 16:26: Romazicon) Naloxone No [...] 2-3 minutes. Hydralazine No Notes: Dayron boubacar - (Same as: l 16:26: Apresoline ) Push over 5 minutes Acetaminoph Yes 2 tab, PO, Memoria en 300 MG / 07 Q4H, PRN l Codeine 15:19: Pain Score Herm doris Phosphate 00 4-6, # 24 30 MG Oral tab, 0 Tablet Refill(s) Zofran No Notes: Memoria - (Same as: l 15:17: Zofran) MEDICATION WASTE Product Size: 4 mg Product Wasted: ___ mg acetaminoph No Notes: Do M emoria en-codeine 02-26 not exceed l #3 15:17: 4gm/day of acetaminop hen. (Same as: Tylenol with Codeine # 3) Acetaminoph No Notes: Do M emoria en 02-26 not exceed l 15:17: 4 gm/day. (Same as: Tylenol) protamine No Route: IV, Me moria (ANES) 02-26 Drug form: l 15:10: INJ, ONCE, Stop date: 02/26/17 10:10:00 CDT heparin No Route: IV, Dayron boubacar (ANES) 02-26 Drug form: l 15:06: INJ, ONCE, Stop date: 02/26/17 10:06:00 CDT propofol No Route: IV, Mem oria (ANES) 02-26 Drug form: l 14:41: INJ, ONCE, Stop date: 02/26/17 9:41:00 CDT fentaNYL No Route: IV, Mem oria (ANES) 02-26 Drug form: l 14:31: INJ, ONCE, Stop date: 02/26/17 9:31:00 CDT midazolam No Route: IV, Me moria (ANES) 02-26 Drug form: l 14:26: SOLN, [place] 00 ONCE, Stop date: 02/26/17 9:26:00 CDT vancomycin No Route: IV, M emoria (ANES) 02-26 Drug form: l (ANES) 14:09: INJ, Start Anel nn date: 02/26/17 9:09:00 CDT, Stop date: 02/26/17 10:09:00 CDT sodium No Route: IV, Memor ia chloride 02-26 Total l 0.9% 500 ml 13:49: Volume: Her martínez INJ (ANES) 00 500, Start date: 02/26/17 8:49:00 CDT, Stop date: 02/26/17 9:49:00 CDT Cefazolin No Notes: Memori a 02-26 Same as: l 12:00: Ancef [place] 00 insulin Yes 15 UNITS, Memor ia detemir 100 02-24 SUB-Q, l UNT/ML 14:25: BID, am [place] Injectable 00 AND pm Solution MEALS [Levemir] Probiotic Yes 1 cap, PO, Me moria Formula 7-05 Daily, l 14:24: PROBIOTIC 00 PEARLS COMPLETE( DIGESTIVE hEALTH) Multiple Yes 1 tab, PO, Mem oria Vitamins 7-05 Daily, l oral tablet 14:22: SPECTRAVIT 00 E ( ULTRA MEN 50 PLUS) Calcium Yes 250 mg, Memoria Carbonate 7-05 PO, BID l 14:21: [place] 00 ferrous Yes 325 mg = 1 Dayron boubacar sulfate 325 7-05 tab, PO, l mg oral 14:20: TID [place] enteric 00 coated tablet calcitriol Yes 0.25 Memoria 0.25 mcg 7-05 microgram l oral 14:18: = 1 cap, Colin capsule 00 PO, Every Other Day rosuvastati Yes 5 mg = 1 Me moria n 5 mg oral 7-05 tab, PO, l tablet 14:17: Daily [place] 00 allopurinol Yes 50 mg, PO, Memoria 100 mg oral 7-05 Daily l tablet 14:16: Colin Hydralazine Yes 50 mg = 1 M emoria Hydrochlori 7-05 tab, PO, l de 50 MG 14:15: TID [place] Oral Tablet 00 carvedilol Yes 6.25 mg = Me moria 6.25 mg 7-05 1 tab, PO, l oral tablet 14:14: BID Michael n 00 gabapentin Yes 200 mg = 2 M emoria 100 MG Oral 7-05 cap, PO, l Capsule 14:12: AFTER [place] 00 DIALYSIS sevelamer Yes 800 mg = 1 [...] 7-05 tab, PO, l Tablet 14:10: Bedtime [place] 00 Furosemide Yes 80 mg = 2 Me moria 40 MG Oral 7-05 tab, PO, l Tablet 14:07: QAM [place] 00 apixaban Yes 2.5 mg = 1 Mem oria 2.5 MG Oral 7-05 tab, PO, l Tablet 14:04: BID [place] [Eliquis] 00 rosuvastati Yes 5mg QD Take 5 mg H [...] Time Observation Value Comments Source Systolic blood 2020-09-03 11:20:00 159 mm[Hg] [facility] Diastolic blood 2020-09-03 11:20:00 77 mm[Hg] [facility] Heart rate 2020-09-03 11:20:00 70 /min [facility] Body temperature 2020-09-03 10:43:00 36.39 Katya [facility] Respiratory rate 2020-09-03 10:43:00 18 /min [facility] Body height 2020-09-03 10:43:00 177.8 cm [facility] Body weight 2020-09-03 10:43:00 94.802 kg [facility] BMI 2020-09-03 10:43:00 29.99 kg/m2 [facility] Oxygen saturation in 2020-09-03 10:43:00 96 /min room air [facility] - Arterial blood by Medical Ce nter Pulse oximetry Systolic (mm Hg) 2017-06-01 20:15:00 Dayron rial [place] Diastolic (mm Hg) 2017-06-01 20:15:00 Mem orial [place] Respitory Rate 2017-06-01 20:15:00 Memori al [place] Systolic (mm Hg) 2017-06-01 20:00:00 Dayron rial [place] Diastolic (mm Hg) 2017-06-01 20:00:00 Mem orial [place] Respitory Rate 2017-06-01 20:00:00 Memori al [place] Systolic (mm Hg) 2017-06-01 19:45:00 Dayron rial [place] Diastolic (mm Hg) 2017-06-01 19:45:00 Mem orial [place] Respitory Rate 2017-06-01 19:45:00 Memori al [place] Temperature Oral (F) 2017-06-01 16:00:00 98.5 F [facility] [place] BMI Calculated 2017-05-31 20:47:00 Memori al [place] Height 2017-05-31 20:47:00 177.8 cm [facility] [place] Weight 2017-05-31 20:47:00 [facility] [place] Systolic (mm Hg) 2017-03-04 22:53:00 Dayron rial [place] Diastolic (mm Hg) 2017-03-04 22:53:00 Mem orial [place] Temperature Oral (F) 2017-03-04 22:53:00 97.9 F Memorial [place] Respitory Rate 2017-03-04 22:53:00 Memori al [place] Heart Rate 2017-03-04 22:53:00 [facility] [place] Respitory Rate 2017-03-04 20:46:00 Memori al [place] Heart Rate 2017-03-04 20:46:00 [facility] [place] Systolic (mm Hg) 2017-03-04 20:46:00 Dayron rial [place] Diastolic (mm Hg) 2017-03-04 20:46:00 Mem orial [place] BMI Calculated 2017-03-04 19:30:00 Memori al [place] Height 2017-03-04 19:30:00 170.18 cm [facility] [place] Weight 2017-03-04 19:30:00 [facility] [place] Respitory Rate 2017-03-04 19:30:00 Memori al [place] Heart Rate 2017-03-04 19:30:00 [facility] [place] Temperature Oral (F) 2017-03-04 19:30:00 99 F [facility] [place] Systolic (mm Hg) 2017-03-04 19:30:00 Dayron rial [place] Diastolic (mm Hg) 2017-03-04 19:30:00 Mem orial [place] Respitory Rate 2017-02-26 17:00:00 Memori al [place] Systolic (mm Hg) 2017-02-26 17:00:00 Dayron rial [place] Diastolic (mm Hg) 2017-02-26 17:00:00 Mem orial [place] Respitory Rate 2017-02-26 16:45:00 Memori al [place] Systolic (mm Hg) 2017-02-26 16:45:00 Dayron rial [place] Diastolic (mm Hg) 2017-02-26 16:45:00 Mem orial [place] Respitory Rate 2017-02-26 16:30:00 Memori al [place] Systolic (mm Hg) 2017-02-26 16:30:00 Dayron rial [place] Diastolic (mm Hg) 2017-02-26 16:30:00 Mem orial [place] Temperature Oral (F) 2017-02-26 11:45:00 97.9 F [facility] [place] Heart Rate 2017-02-24 13:43:00 [facility] [place] Temperature Oral (F) 2017-02-24 13:43:00 99.2 F [facility] [place] Weight 2017-02-24 13:27:00 [facility] [place] BMI Calculated 2017-02-24 13:27:00 Memori al [place] Height 2017-02-24 13:27:00 177.8 cm [facility] [place] Procedures Procedure Date / Time Performing Clinician Source Performed XR CHEST 1 VIEW 2020-08-19 13:11:[address] [facility] - PORTABLE/BEDSIDE Medical [place] HEMODIALYSIS INPATIENT 2020-08-19 07:26:45 Lele Dobson [facility] BASIC METABOLIC PANEL (7) 2020-08-19 04:04:[address] [facility] CBC (HEMOGRAM ONLY) 2020-08-19 04:04:00 Charli Alexandra [facility] MAGNESIUM 2020-08-19 04:04:00 Charli Alexandra [facility] PHOSPHORUS 2020-08-19 04:04:00 Charli Alexandra [facility] BASIC METABOLIC PANEL (7) 2020-08-18 04:54:[address] [facility] CBC (HEMOGRAM ONLY) 2020-08-18 04:54:00 Charli Alexandra [facility] MAGNESIUM 2020-08-18 04:54:00 Charli Alexandra [facility] PHOSPHORUS 2020-08-18 04:54:00 Charli Alexandra [facility] XR CHEST 1 VIEW 2020-08-18 03:30:00 Stewart Flores [facility]3] s - PORTABLE/BEDSIDE Located Within [facility] PREPARE LEUKO-REDUCED RBC 2020-08-17 23:54:00 Clement Flores [facility] PREPARE LEUKO-REDUCED 2020-08-17 23:54:[address] [facility] PLATELETS [facility] POCT-GLUCOSE METER 2020-08-17 15:46:[address] [facility] POCT-GLUCOSE METER 2020-08-17 12:21:[address] [facility] XR CHEST 1 VIEW 2020-08-17 09:33:00 Stewart Flores [facility]3] s - PORTABLE/BEDSIDE Located Within [facility] POCT-GLUCOSE METER 2020-08-17 08:23:[address] [facility] SARS-COV2/RT-PCR ([facility] & REF 2020-08-17 05:25:00 Yoly Jimenez [facility] BASIC METABOLIC PANEL (7) 2020-08-17 05:19:00 Charli Alexandra CH, I [facility] CBC (HEMOGRAM ONLY) 2020-08-17 05:19:00 Charli Alexandra [facility] MAGNESIUM 2020-08-17 05:19:00 Charli Alexandra [facility] PHOSPHORUS 2020-08-17 05:19:00 Charli Alexandra [facility] TRANSFUSE LEUKO-REDUCED 2020-08-17 00:16:18 Mark [facility] - PLATELETS [facility] POCT-GLUCOSE METER 2020-08-16 20:39:00 MarkMan [facility] HEMODIALYSIS INPATIENT 2020-08-16 18:27:53 Lele Dobson [facility] TRANSFUSE LEUKO-REDUCED RED 2020-08-16 16:59:07 Mark [facility] - BLOOD CELLS [facility] POCT-GLUCOSE METER 2020-08-16 16:56:00 [facility] POCT-GLUCOSE METER 2020-08-16 12:22:00 [facility] POCT-GLUCOSE METER 2020-08-16 07:21:00 [facility] BASIC METABOLIC PANEL (7) 2020-08-16 04:06:00 Charli Alexandra CH[facility] CBC (HEMOGRAM ONLY) 2020-08-16 04:06:00 Charli Alexandra [facility] MAGNESIUM 2020-08-16 04:06:00 Charli Alexandra [facility] PHOSPHORUS 2020-08-16 04:06:00 Charli Alexandra [facility] CALCIUM, IONIZED 2020-08-16 04:06:00 Charli Alexandra [facility] XR CHEST 1 VIEW 2020-08-16 03:21:00 Charli Alexandra [facility] - PORTABLE/BEDSIDE [facility] POCT-GLUCOSE METER 2020-08-15 20:41:[address] [facility] POCT-GLUCOSE METER 2020-08-15 15:00:00 MarkMan [facility] XR CHEST 1 VIEW 2020-08-15 14:35:00 Fernjosiah Kamilla [facility] - PORTABLE/BEDSIDE [facility] US THORACENTESIS 2020-08-15 13:25:[address] [facility] POCT-GLUCOSE METER 2020-08-15 12:15:[address] [facility] PT/APTT 2020-08-15 09:33:00 Janay Boswell [facility] POCT-GLUCOSE METER 2020-08-15 07:28:[address] [facility] XR CHEST 1 VIEW 2020-08-15 03:53:00 Charli Alexandra [facility] - PORTABLE/BEDSIDE [facility] ANTI-NUCLEAR ANTIBODY (MISSAEL) 2020-08-15 03:47:00 Charli Alexandra [facility] BASIC METABOLIC PANEL (7) 2020-08-15 03:47:00 Charli Alexandra [facility] CBC (HEMOGRAM ONLY) 2020-08-15 03:47:00 Charli Alexandra [facility] MAGNESIUM 2020-08-15 03:47:00 Charli Alexandra [facility] PHOSPHORUS 2020-08-15 03:47:00 Charli Alexandra [facility] CALCIUM, IONIZED 2020-08-15 03:47:00 Charli Alexandra [facility] MISSAEL TITER AND PATTERN 2020-08-15 03:47:00 Charli Alexandra [facility] PREPARE PLASMA 2020-08-14 23:54:00 Stewart Flores [facility] PREPARE PLATELETS 2020-08-14 23:54[facility]00 [facility] PREPARE RBC 2020-08-14 23:54:00 Stewart Flores [facility] OXYGEN SATURATION, MEASURED 2020-08-14 10:38:00 Charli Alexandra [facility] US ABDOMEN LIMITED 2020-08-14 10:23:00 [facility] POCT-GLUCOSE METER 2020-08-14 06:05:[address] [facility] BASIC METABOLIC PANEL (7) 2020-08-14 03:52:[address] [facility] CBC (HEMOGRAM ONLY) 2020-08-14 03:52:00 Charli Alexandra [facility] MAGNESIUM 2020-08-14 03:52:00 Charli Alexandra [facility] PHOSPHORUS 2020-08-14 03:52:00 Charli Alexandra [facility] LIPID PANEL 2020-08-14 03:52[facility] 2020-08[facility]14 03:52[facility]-1 [facility] W/HIV-1&2 AB 2020-08-14 03:52:00 Mark [facility] HEPATITIS C ANTIBODY 2020-08-14 03:52:[facility] 2020-08-14 03:52:00 [facility] CALCIUM, IONIZED 2020-08-14 03:52:00 Charli Alexandra [facility] BLOOD GAS, ARTERIAL 2020-08-14 03:52:00 Sera [facility] XR CHEST 1 VIEW 2020-08-14 01:23:00 Charli Alexandra [facility] - PORTABLE/BEDSIDE [facility] POCT-GLUCOSE METER 2020-08-14 00:31:[address] [facility] LACTIC ACID, ARTERIAL 2020-08-13 [facility] 2020-08-13 19:34:00 Sera [facility] SODIUM NA-STAT LAB 2020-08-13 19:34:00 Sera [facility] POTASSIUM-STAT LAB 2020-08-13 19:34:00 Sera [facility] GLUCOSE-STAT LAB 2020-08-13 19:34:00 Sera [facility] HGB/HCT (H&H) - STAT LAB 2020-08-13 19:34:00 [facility] BLOOD GAS, ARTERIAL 2020-08-13 16:17:00 [facility] SODIUM NA-STAT LAB 2020-08-13 16:17:00 [facility] POTASSIUM-STAT LAB 2020-08-13 16:17:00 [facility] GLUCOSE-STAT LAB 2020-08-13 16:17:[address] [facility] HGB/HCT (H&H) - STAT LAB 2020-08-13 16:17:00 Mark [facility] XR CHEST 1 VIEW 2020-08-13 15:30:00 Shanda Chapman [facility]/BEDSIDE [facility] CALCIUM, IONIZED 2020-08-13 14:31:00 Shanda Chapman [facility] PT/APTT 2020-08-13 14:30:00 Shanda Chapman [facility] PROTHROMBIN TIME/INR 2020-08-13 14:30:00 Shanda Chapman [facility] OXYGEN SATURATION, MEASURED 2020-08-13 14:30:00 Shanda Chapman [facility] THROMBOELASTOGRAPH (TEG) 2020-08-13 14:30:00 Shanda Chapman [facility] XR CHEST 1 VIEW 2020-08-13 14:00:00 Shanda Chapman [facility] PORTABLE/BEDSIDE Medical Center MAGNESIUM 2020-08-13 13:44:00 Clement Flores [facility] LACTIC ACID, ARTERIAL 2020-08-13 13:44:00 Shanda Chapman [facility] PHOSPHORUS 2020-08-13 13:44:00 Shanda Chapman [facility] CBC (HEMOGRAM ONLY) 2020-08-13 13:44:00 Shanda Chapman [facility] OXYGEN SATURATION, MEASURED 2020-08-13 13:44:00 Shanda Chapman [facility] COMPREHENSIVE METABOLIC 2020-08-13 13:44:[address] [facility] BLOOD GAS, ARTERIAL 2020-08-13 13:44:00 Shanda Chapman [facility] SODIUM NA-STAT LAB 2020-08-13 13:44:00 Shanda Chapman [facility] POTASSIUM-STAT LAB 2020-08-13 13:44:00 Shanda Chapman [facility] GLUCOSE-STAT LAB 2020-08-13 13:44:00 Shanda Chapman [facility] HGB/HCT (H&H) - STAT LAB 2020-08-13 13:44:00 Shanda Chapman [facility] LACTATE DEHYDROGENASE (LDH) 2020-08-13 12:30:38 [facility] BILIRUBIN, TOTAL AND DIRECT 2020-08-13 12:30:38 [facility] PROTHROMBIN TIME/INR 2020-08-13 12:27:17 [facility] APTT 2020-08-13 12:27:17 [facility] FIBRINOGEN 2020-08-13 12:27:17 [facility] THROMBOELASTOGRAPH (TEG) 2020-08-13 12:27:17 [facility] PLATELET COUNT 2020-08-13 12:27:17 [facility] HAPTOGLOBIN 2020-08-13 12:27:17 [facility] BLOOD GAS, ARTERIAL 2020-08-13 12:27:17 [facility] SODIUM NA-STAT LAB 2020-08-13 12:27:17 [facility] POTASSIUM-STAT LAB 2020-08-13 12:27:17 [facility] GLUCOSE-STAT LAB 2020-08-13 12:27:17 [facility] HGB/HCT (H&H) - STAT LAB 2020-08-13 12:27:17 [facility] RETICULOCYTE COUNT 2020-08-13 12:27:00 [facility] HEPATITIS B SURFACE ANTIGEN 2020-08-13 12:27:00 Lele Dobson [facility] TRANSFUSE LEUKO-REDUCED RED 2020-08-13 12:08:31 [facility] TRANSFUSE LEUKO-REDUCED RED 2020-08-13 12:04:42 [facility] CALCIUM, IONIZED 2020-08-13 11:41:41 [facility] PROTHROMBIN TIME/INR 2020-08-13 11:41:41 [facility] APTT 2020-08-13 11:41:41 [facility] FIBRINOGEN 2020-08-13 11:41:41 [facility] PLATELET COUNT 2020-08-13 11:41:41 [facility] BLOOD GAS, ARTERIAL 2020-08-13 11:41:41 [facility] SODIUM NA-STAT LAB 2020-08-13 11:41:41 [facility] POTASSIUM-STAT LAB 2020-08-13 11:41:41 [facility] GLUCOSE-STAT LAB 2020-08-13 11:41:41 [facility] HGB/HCT (H&H) - STAT LAB 2020-08-13 11:41:41 [facility] RETICULOCYTE COUNT 2020-08-13 11:41:00 [facility] W/[facility]T COUNT & AUTO 2020-08-13 11:41:00 Mark Pinkyantionette [facility] - DIFFERENTIAL [facility] TRANSFUSE LEUKO-REDUCED RED 2020-08-13 11:26:33 [facility]LO[facility]LLS [facility] TRANSFUSE LEUKO-REDUCED 2020-08-13 11:20:10 [facility] PLATELETS [facility] TRANSFUSE PLASMA 2020-08-13 11:19:41 [facility] 2020-08-13 11:19:40 [facility] LEUKO-REDUCED 2020-08-13 11:18:31 [facility] PLATELETS [facility] TRANSFUSE LEUKO-REDUCED RED 2020-08-13 11:05:28 [facility] LEUKO-REDUCED RED 2020-08-13 11:04:50 [facility] POCT-ACT 2020-08-13 10:58:00 Mark [facility] PROTHROMBIN TIME/INR 2020-08-13 10:51:02 [facility] APTT 2020-08-13 10:51:02 [facility] FIBRINOGEN 2020-08-13 10:51:02 [facility] THROMBOELASTOGRAPH (TEG) 2020-08-13 10:51:02 [facility] PLATELET COUNT 2020-08-13 10:51:02 [facility] BLOOD GAS, ARTERIAL 2020-08-13 10:51:02 [facility] SODIUM NA-STAT LAB 2020-08-13 10:51:02 [facility] POTASSIUM-STAT LAB 2020-08-13 10:51:02 [facility] GLUCOSE-STAT LAB 2020-08-13 10:51:02 [facility] (H&H) - STAT LAB 2020-08-13 10:51:02 Bill, [facility] TRANSFUSE LEUKO-REDUCED 2020-08-13 10:45:15 Bill, [facility] PLATELETS [facility] TRANSFUSE LEUKO-REDUCED 2020-08-13 10:41:21 Bill, [facility] TRANSFUSE LEUKO-REDUCED 2020-08-13 10:39:52 Bill, [facility] POCT-ACT 2020-08-13 10:28:00 Mark [facility] CALCIUM, IONIZED 2020-08-13 10:15:25 Bill, [facility] PROTHROMBIN TIME/INR 2020-08-13 10:15:25 [facility] 2020-08-13 10:15:25 Bill, [facility] FIBRINOGEN 2020-08-13 10:15:25 Bill, [facility] PLATELET COUNT 2020-08-13 10:15:25 [facility] BLOOD GAS, ARTERIAL 2020-08-13 10:15:25 Bill, [facility] SODIUM NA-STAT LAB 2020-08-13 10:15:25 [facility] POT[facility]SIUM-STAT LAB 2020-08-13 10:15:25 Bill, [facility] GLUCOSE-STAT LAB 2020-08-13 10:15:25 [facility]/HCT (H&H) - STAT LAB 2020-08-13 10:15:25 [facility] PERIPHERAL BLOOD SMEAR - 2020-08-13 10:15:00 Tyrone Meyer [facility] POCT-ACT 2020-08-13 09:49:00 Stewart Flores [facility] BLOOD GAS, ARTERIAL 2020-08-13 09:46:29 Mark, [facility] SODIUM NA-STAT LAB 2020-08-13 09:46:29 Mark [facility] POTASSIUM-STAT LAB 2020-08-13 09:46:29 Mark [facility] GLUCOSE-STAT LAB 2020-08-13 09:46:[address] [facility] HGB/HCT (H&H) - STAT LAB 2020-08-13 09:46:[address] [facility] TRANSFUSE LEUKO-REDUCED RED 2020-08-13 09:34:12 [facility] POCT-ACT 2020-08-13 09:26:[facility]LO[facility], ARTERIAL 2020-08-13 09:20:[address] [facility] SODIUM NA-STAT LAB 2020-08-13 09:20:37 Mark [facility] POTASSIUM-STAT LAB 2020-08-13 09:20:37 Mark [facility] GLUCOSE-STAT LAB 2020-08-13 09:20:[address] [facility] HGB/HCT (H&H) - STAT LAB 2020-08-13 09:20:[address] [facility] POCT-ACT 2020-08-13 08:59:00 Mark [facility] ANESTHESIA DASIA 2020-08-13 08:21:33 [facility] ABORH, MANUAL 2020-08-13 08:14:00 Lisa Rowe [facility] POCT-ACT 2020-08-13 08:11:00 [facility] CALCIUM, IONIZED 2020-08-13 07:51:14 [facility] BLOOD GAS, ARTERIAL 2020-08-13 07:51:14 [facility] 2020-08-13 07:51:14 [facility] POT[facility]SI[facility]-STAT LAB 2020-08-13 07:51:14 [facility] GLU[facility]SE-STAT LAB 2020-08-13 07:51:14 [facility] HGB/HCT (H&H) - STAT LAB 2020-08-13 07:51:14 [facility] BYPASS,AORTO CORONARY 2020-08-13 07:07:00 Stewart Flores [facility] - HENRY/SVG [facility]ated [facility] ENDOSCOPIC HARVEST,VEIN 2020-08-13 07:07:[address] [facility] DASIA,3D 2020-08-13 07:07:00 Mark [facility] XR CHEST 1 VIEW 2020-08-13 06:41:00 Stewart Flores [facility]/BEDSIDE [facility]ated [facility] MAGNESIUM 2020-08-13 06:28:00 Mark [facility] COMPREHENSIVE METABOLIC 2020-08-13 06:28:00 Mark [facility] HEMOGLOBIN A1C 2020-08-13 06:28:00 Mark [facility] LIPID PANEL 2020-08-13 06:28:00 Mark [facility] PROTHROMBIN TIME/INR 2020-08-13 06:28:[address] [facility] APTT 2020-08-13 06:28:00 Mark [facility] PHOSPHORUS 2020-08-13 06:28:00 Clement Flores [facility] BILIRUBIN, TOTAL AND DIRECT 2020-08-13 06:28:00 [facility] LACTATE DEHYDROGENASE (LDH) 2020-08-13 06:28:00 [facility] ABORH, MANUAL 2020-08-13 06:28:00 Mark [facility] CBC W/PLT COUNT & AUTO 2020-08-13 06:28:[address] [facility] - DIFFERENTIAL [facility] POCT-GLUCOSE METER 2020-08-13 06:01:00 Mark Stewart [facility] - [facility] SARS-COV2/RT-PCR ([facility] & REF 2020-08-08 11:42:[address] [facility] - LABS) [facility] Central line 2016-08-23 00:00:00 Noemi martínez insertion<sup>1</sup> AV - Creation of 2015-08-23 00:00:00 Noemi steen arteriovenous fistula Procedure<sup>2, 3</sup> Lukasz Shaw Plan of Care Planned Activity Planned Date Details Comments Source Future Scheduled 2023-08-[address] [facility] 00:00[facility]00 (procedure) [code = Medical Center 14481061] Future Scheduled 2020 65+ PNEUMOCOCCAL [facility] 00:00:00 VACCINE (1 of 1 - PPSV23) [code = 65+ PNEUMOCOCCAL VACCINE (1 of 1 - PPSV23)] Future Scheduled 2020 PNEUMOCOCCAL 65+ Y[facility] - Test 00:00:00 (1 of 1 - [facility] [id number] PCV13) [code = PNEUMOCOCCAL 65+ YRS (1 of 1 - DYOJ01_Ldosage PCV13)] Future Scheduled 2020-05-23 Medicare IPPE (WELCOME [facility] 00:00:00 TO MEDICARE) [code = Medical Center Medicare IPPE (WELCOME TO MEDICARE)] Future Scheduled 2020-04-23 INFLUENZA VACCINE (#1) [facility] Test 00:00:00 [code = INFLUENZA Medical Ce nter VACCINE (#1)] Future Scheduled 2020-03-23 INFL[place]ZA VACCINE [place] [facility] 00:00:00 [code = INFLUENZA VACCINE] Future Scheduled 2005 COLONOSCOPY SCREENING [facility] 00:00:00 [code = COLONOSCOPY SCREENING] Future Scheduled 2005 SHINGLES VACCINES (#1) [facility] 00:00:00 [code = SHINGLES VACCINES (#1)] Future Scheduled 1971 COVID-19 VACCINE (1 of [facility] Test 00:00:00 2) [code = COVID-19 VACCINE (1 of 2)] Future Scheduled 1965 DIABETES: RETINAL EYE [place] [facility] 00:00:00 EXAM [code = DIABETES: RETINAL EYE EXAM] Future Scheduled 1965 DIABETIC FOOT EXAM [place] [facility] 00:00:00 [code = DIABETIC FOOT EXAM] Future Scheduled [address] [facility] Test 00:00:00 malignant neoplasm of [facility] colon (procedure) [code = 595572532] Encounters Start End Encounter Admission Attending Care Care Encounter Source Date/Time Date/Time Type Type Clinicians Facility Department ID 2017-06-01 2017-06-01 Outpatient [facility] [id number] 10:06:00 15:45:00 Elder Hyatt 2017-03-04 2017-03-04 Outpatient Khan Agustin [facility] [id number] 14:12:00 18:25:00 2017-02-26 2017-02-26 [facility]patient [facility] [id number] 06:00:00 12:27:00 Elder Hyatt 2017-02-24 2017-02-24 Outpatient Reynolds, [id number] 10:49:00 23:59:00 Elder Hyatt [id number] 5.36 Results Test Description Test Time Test Comments Results Result [facility] e Comments RAD, CHEST, 1 2020-07-24 Reason for VIEW, NON DEPT 8 exam:->Post CT 13:19:00 removalShould this be performed at [facility] - the bedside?->Yes [facility]ENTER[facility]ALLER [...] MDReport Verified Date/Time: 08/19/2020 13:19:30 Reading Location: [facility] Radiology Reading Room chest 1 view 2020-07-24 Interface, External [facility] / 8 Ris In - 08/19/2020 [facility] - bedside 13:19:00 1:21 PM CSTFINAL Medical REPORT PATIENT ID: Mckinney [id number] RAD, CHEST, 1 VIEW, NON DEPT INDICATION: [...] MDReport Verified Date/Time: 08/19/2020 13:19:30 Reading Location: [facility] Radiology Reading Room Basic Metabolic Panel 2020-08-19 05:05:00 Test Item Value Reference Range Interpretation Comme nts Sodium (test code = 138 meq/L 205-625 5108-2) Potassium (test code = 3.9 meq/L 3.5-5.1 2823-3) Chloride (test code = 105 meq/L 98-107 2075-0) CO2 (test code = 8-9) 22 meq/L 22-29 BUN (test code = 3094-0) 49 mg/dL 7-21 H Creatinine (test code = 6.96 mg/dL 0.57-1.25 H 2160-0) Glucose (test code = 84 mg/dL 70-105 2345-7) Calcium (test code = 8.4 mg/dL 8.4-10.2 57218-8) EGFR (test code = 23414-1) 8 mL/min/1.73 sq m ESTIMATED GFR IS NOT ACCURATE CREATININE LOUIS ROSANNE IN PREDICTING GLOMERULAR FILT RATION RATE. ESTIMATED GFR IS NOT APPLICAB LE FOR DIALYSIS PATIEN TS. YARI (test code = YARI) Meter Shop Superintendent ID - EDASI Lab Interpretation (test Abnormal code = 22010-7) [facility] [id number] 05:05:00 Test Item Value Reference Range Interpretation [...] S NOT APPLICABLE FOR DIALYSIS PATIEN TS. Meter Shop Superintendent ID - [id number] 04:58:00 Test Item Value Reference Range Interpretation Comments Magnesium (test code = 2.1 mg/dL 1.6-2.6 66213-8) YARI (test code = YARI) Meter Shop Superintendent ID - EDASI Lab Interpretation (test Normal code = 03022-8) [facility] Center[facility]osph[facility]2020-12-28 04:58:00 Test Item Value Reference Range Interpretation Comments Phosphorus (test code = 4.0 mg/dL 2.3-4.7 2777-1) YARI (test code = YARI) Meter Shop Superintendent ID - EDASI Lab Interpretation (test Normal code = 16934-7) [facility]UM2020-12-28 04:58:00 Test Item Value Reference Range Interpretation Comments MAGNESIUM (BEAKER) (test code = 2.1 mg/dL 1.6-2.6 627) Meter Shop Superintendent ID - [id number] 04:58:00 Test Item Value Reference Range Interpretation Comments PHOSPHORUS (BEAKER) (test code = 4.0 mg/dL 2.3-4.7 604) Meter Shop Superintendent ID - EDASICBC (Hemogram only)2020-08-19 04:37:00 Test [...] K/CU MM L MPV (test code = 37650-0) 11.5 fL 9.4-12.4 nRBC (test code = 413) 0 0- 0 /100 WBC Lab Interpretation (test code = Abnormal 11877-9) [facility] (HEMO[facility] ONLY)2020-08-19 04:37:00 Test Item [...] = 413) RAD, CHEST, 1 VIEW, NON [id number] 07:15:00Reason for exam:->[facility] 1955 Sex: MFINAL REPORT Chest one view. Clinical history: chest tube Comparison: 08/17/2020 Discussion: A frontal chest is provided. Cardiomediastinal contours are unchanged. A left chest tube is in stable position. Unchanged interstitial edema and patchy bibasilar opacities. There is a tiny left apical pneumothorax without interval change. There are small bilateral pleural effusions. Signed: Doris Dos Santos Verified Date/Time: 08/18/2020 07:15:41 Reading Location: [facility] B1 C013X Ortho Consult Reading Room BASIC METABOLIC [id number] 06:04:00 Test Item Value Reference Range Interpretation [...] S NOT APPLICABLE FOR DIALYSIS PATIEN TS. Meter Shop Superintendent ID - [id number] 05:57:00 Test Item Value Reference Range Interpretation Comments MAGNESIUM (BEAKER) (test code = 2.1 mg/dL 1.6-2.6 627) Meter Shop Superintendent ID - [id number] 05:57:00 Test Item Value Reference Range Interpretation Comments PHOSPHORUS (BEAKER) (test code = 3.4 mg/dL 2.3-4.7 604) Meter Shop Superintendent ID - EDASICBC (HEMOGRAM ONLY)2020-08-18 05:24:00 Test [...] 0-0 (test code = 413) Prepare Leuko-Red [id number] 23:54:00 Test Item Value Reference Range Interpretation Comments CROSSMATCH (test code = 2264) COMPATIBLE Unit ABO (test code = O Pos 5663871) UNIT NUMBER (test code = [id number] 934-0) Status (test code = 6683254) [facility] Blood Bank Product (test code RED BLOOD CELLS = 2263) PRODUCT CODE (test code = M5502D24 933-2) [facility] CenterPrepare Leuko-Red [id number] 23:54:00 Test Item Value Reference Range Interpretation Comments Unit ABO (test code = 0144995) O Neg UNIT NUMBER (test code = [id number] 934-0) Status (test code = 9054468) [facility] Blood Bank Product (test code PLATELETS = 2263) PRODUCT CODE (test code = O6623X34 933-2) [facility] CenterPOC-Glucose [id number] 18:47:00 Test Item Value Reference Range Interpretation Comments POC-Glucose Meter (test 178 mg/dL 70-110 H : TE STED AT [facility] code = 1538) [address] [place], [address]: Meter Shop Superintendent/Techni radha ID = [id number] for Lexus Bynum Lab Interpretation (test Abnormal code = 35428-8) [facility] CenterPOCT-GLUCOSE [id number] 18:47:00 Test Item Value Reference Range Interpretation Comments POC-GLUCOSE METER 178 mg/dL 70-110 H : TESTED A T [facility] 67[address] (BEAKER) (test code = [address] [place], 1538) [address]: Meter Shop Superintendent/Techni radha ID = [id number] for Lexus Oleary POCT-GLUCOSE [id number] 12:32:00 Test Item Value Reference Range Interpretation Comments POC-GLUCOSE METER 87 mg/dL 70-110 : TESTED A T [facility] 6720 (BEAKER) (test code = [address] [place], 1538) [address]: Meter Shop Superintendent/Techni radha ID = [id number] for JUDAH NTANNER SARS-CoV2/RT-PCR (Asymptomatic ONLY)2020-08-17 10:34:00 Test Item Value Reference Range Interpretation Comments SARS-COV2/RT-PCR Negative Not Detected, (test code = Negative, See 15318-3) external report for linked test SARS-COV-2 [facility] RAJAT PERFORMING LAB (test code = 00111-1) YARI (test code = Negative result for [...] of the Act. Fact Sheet for Healthcare Providers:https://www.CustomerAdvocacy.com/sites/default/f jose/product/documents/F act_Sheet_HC_Providers_L jkp_IWUA-OhD-9.pdf Fact Sheet for Healthcare Patients:https://www.Textura/sites/default/fi les/product/documents/Fa ct_Sheet_Patients_Lyra_S ARS-CoV-2.pdf Performing Laboratory:[facility], [place] [address] [place], [place] [address]ARS-COV2/RT-PCR ([facility])2020-08-17 10:34:00 Test Item Value Reference Range Interpretation Comments SARS-COV2/RT-PCR (test Negative Not Detected, Negative, code = 5794059) See external report for linked test SARS-COV-2 PERFORMING LAB [facility] RAJAT (test code = 5078751) Negative result for this test determines that [...] 564(g) of the Act.Fact Sheet for Healthcare Providers:https://www.viaForensics/sites/default/files/product/documents/Fact_Shee b_VV_Pgpvzxfdc_Kvoz_ASDP-QnN-0.pdfFact Sheet for Healthcare Patients:https://www.viaForensics/sites/default/files/product/ documents/Ykst_Kzbvc_Tszsycan_Ajik_EHTM-ZmF-2.pdfPerforming Laboratory:[facility], [place] [address]TSA, CHEST, 1 VIEW, NON [id number] 09:48:00Reason for exam:->exam for possible CT removal [facility] : 1955 Sex: MFINAL REPORT TECHNIQUE: Frontal [...] MDReport Verified Date/Time: 08/17/2020 09:48:57 Reading Location: [facility] C013Y CT Body Reading Room POCT-GLUCOSE [id number] 08:35:00 Test Item Value Reference Range Interpretation Comments POC-GLUCOSE METER 83 mg/dL 70-110 : TESTED A T [facility] 6720 (BEAKER) (test code = [place] [place], 1538) [address]: Meter Shop Superintendent/Techni radha ID = [id number] for AlfonsoLexus chau BASIC METABOLIC [id number] 06:34:00 Test Item Value Reference Range Interpretation [...] S NOT APPLICABLE FOR DIALYSIS PATIEN TS. Meter Shop Superintendent ID - [id number] 06:33:00 Test Item Value Reference Range Interpretation Comments MAGNESIUM (BEAKER) (test code = 1.9 mg/dL 1.6-2.6 627) Meter Shop Superintendent ID - [id number] 06:33:00 Test Item Value Reference Range Interpretation Comments PHOSPHORUS (BEAKER) (test code = 2.9 mg/dL 2.3-4.7 604) Meter Shop Superintendent ID - EDASICBC (HEMOGRAM ONLY)2020-08-17 06:05:00 Test [...] WBC 0-0 (test code = 413) POCT-GLUCOSE [id number] 21:02:00 Test Item Value Reference Range Interpretation Comments POC-GLUCOSE METER 206 mg/dL 70-110 H : TESTED A T [facility] [address] (BEAKER) (test code = [place], 1538) [address]: Meter Shop Superintendent/Techni radha ID = [id number] for LIV WYNNO KIMMIE HEMODIALYSIS [id number] 18:27:53Ramon Carrillo RN 08/16/2020 6:30 PM - S/P Hemodialysis x [...] (H) 08/16/2020 'Ramon BENITEZ, RN II7S6- Adult [id number] 6760[facility]PO[facility] METER 2020-08-16 17:09:00 Test Item Value Reference Range Interpretation Comments POC-GLUCOSE METER 96 mg/dL 70-110 : TESTED A T [facility] 6720 (BEAKER) (test code = [facility], 153) [address]: Meter Shop Superintendent/Techni radha ID = [id number] for Ramon Mena POCT-GLUCOSE [id number] 12:35:00 Test Item Value Reference Range Interpretation Comments POC-GLUCOSE METER 107 mg/dL 70-110 : TESTED A T [facility] 6720 (BEAKER) (test code = [facility] [employer] [facility], 153) [address]: Meter Shop Superintendent/Techni radha ID = [id number] for OR PHEY, JONATHAN POCT-GLUCOSE [id number] 08:06:00 Test Item Value Reference Range Interpretation Comments POC-GLUCOSE METER 81 mg/dL 70-110 : TESTED A T [facility] 6720 (BEAKER) (test code = [facility] [employer] [facility], 153) 29441: Meter Shop Superintendent/Techni radha ID = [id number] for ORPH EY, JONATHAN BASIC METABOLIC [id number] 04:53:00 Test Item Value Reference Range Interpretation [...] S NOT APPLICABLE FOR DIALYSIS PATIEN TS. Meter Shop Superintendent ID - [id number] 04:48:00 Test Item Value Reference Range Interpretation Comments MAGNESIUM (BEAKER) (test code = 2.0 mg/dL 1.6-2.6 627) Meter Shop Superintendent ID - [id number] 04:48:00 Test Item Value Reference Range Interpretation Comments PHOSPHORUS (BEAKER) (test code = 3.3 mg/dL 2.3-4.7 604) Meter Shop Superintendent ID - EDASICalcium, [id number] 04:25:00 Test Item Value Reference Range Interpretation Comments Calcium, Ion (test code = 1994-3) 1.12 mmol/L 1.12-1.27 pH, Blood (test code = 77802-2) 7.42 [facility] Medicine[facility]CIUM, [id number] 04:25:00 Test Item Value Reference Range Interpretation [...] = 413) RAD, CHEST, 1 VIEW, NON [id number] 04:20:00while patient is intubated or has chest tubes.Reason for exam:->Status post CV SurgeryShould thisbe performed at the bedside?->Yes [facility] 1955 Sex: MFINAL [...] mediastinum: Stable contours.Additional findings: None. Signed: Jhon Eldridge MDReport Verified Date/Time: 08/16/2020 04:20:29 POCT-GLUCOSE [id number] 20:54:00 Test Item Value Reference Range Interpretation Comments POC-GLUCOSE METER 115 mg/dL 70-110 H : TESTED A T [facility] 6720 ([facility]) (test code = GABRIEL BORJA [place], 1538) 23178: Meter Shop Superintendent/Techni radha ID = [id number] for KIMMIE FONTENOT U/S, [id number] 15:25:00Right pleural effusionReason for exam:- >right pleural effusion [facility] 1955 Sex: MFINAL REPORT Ultrasound guided right thoracentesis. Clinical History: Right pleural effusion. Modality: Ultrasound. Sedation: None. Aircraft Powerplant Repairer: Kamilla Marte PA-C Draft Roller Picker: None. Estimated Blood Loss: 1cc Specimen: 1200 [...] ultrasound guided right thoracentesis. Signed: Ashlyn Leroy [facility] Verified Date/Time: 08/15/2020 15:25:50 Reading Location: [address] Ultrasound Reading Room US [id number] 15:25:00Interface, External Ris In - 08/15/2020 3:28 PM CSTFINAL REPORT Ultrasound guided right thoracentesis. Clinical History: Right pleural effusion. Modality: Ultrasound. Sedation: None. Aircraft Powerplant Repairer: Kamilla Marte PA-C Draft Roller Picker: None. Estimated Blood Loss: 1cc Specimen: 1200 [...] ultrasound guided right thoracentesis. Signed: Ashlyn Leroy [facility] Verified Date/Time: 08/15/2020 15:25:50 Reading Location: [facility] P006 Ultrasound Reading Room [facility] [id number] 15:12:00 Test Item Value Reference Range Interpretation Comments POC-GLUCOSE METER 92 mg/dL 70-110 : TESTED A T [facility] 6720 (SILVANA) (test code = GABRIEL Nunez [facility], 1538) 09603: Meter Shop Superintendent/Techni radha ID = [id number] for Alfonso Lexus burrows RAD, CHEST, 1 VIEW, NON [id number] 14:46:00Reason for exam:->s/p right thoraShould this be performed at the bedside?->YesU/S rm 1 [facility] : 1955 Sex: MFINAL [...] MDReport Verified Date/Time: 08/15/2020 14:46:15 Reading Location: [facility] Radiology Reading Room POCT- GLUCOSE [id number] 12:27:00 Test Item Value Reference Range Interpretation Comments POC-GLUCOSE METER 118 mg/dL 70-110 H : TESTED A T [facility] 6720 (SILVANA) (test code = GABRIEL BORJA [place], 1538) 01713: Meter Shop Superintendent/Techni radha ID = [id number] for MamtaLexus Anti-Nuclear Antibody (MISSAEL)2020-08-15 10:57:00 Test Item Value Reference Range Interpretation Comments MISSAEL (test code = 54069-2) Positive Negative A YARI (test code = YARI) Test performed by IFA method. Lab Interpretation (test Abnormal code = 99984-8) [facility]ANA Titer & [id number] 10:57:00 Test Item Value Reference Range Interpretation Comments MISSAEL Titer (test code = 28255-8) 1:160 MISSAEL Pattern (test code = 1781) Homogeneous [facility] CenterANTI-NUCLEAR ANTIBODY (MISSAEL)2020-08-15 10:57:00 Test Item Value Reference Range Interpretation Comments ANTI-NUCLEAR ANTIBODY (MISSAEL) (BEAKER) Positive Negative A (test code = 418) Test performed by IFA method.MISSAEL TITER AND [id number] 10:57:00 Test Item Value Reference Range Interpretation Comments MISSAEL TITER (BEAKER) (test code = :160 1541) MISSAEL PATTERN (BEAKER) (test code = Homogeneous 1781) PT/[id number] 09:56:00 Test Item Value Reference Range Interpretation Comments Protime (test code = 14.9 11.9- 14.2 H 5902-2) seconds INR (test code = 1.21 <=5.90 6301-6) PTT (test code = 27.4 22.5- 36.0 61322-4) seconds YARI (test code = YARI) Effective 01/18/2019: PT Reference Range ChangeNew: 11.9-14.2 Previous: 11.7-14.7 RECOMMENDED COUMADIN/WARFARIN INR THERAPY RANGESSTANDARD DOSE: 2.0-3.0 Includes: PROPHYLAXIS for venous thrombosis, systemic embolization; TREATMENT for venous thrombosis and/or pulmonary embolus.HIGH RISK: Target INR is 2.5-3.5 for patients wiht mechanical heart valves. Lab Interpretation Abnormal (test code = 07977-5) [facility] CenterPT/[id number] 09:56:00 Test Item Value Reference Range Interpretation [...] is2.5-3.5 for patients wiht mechanical heart valves.POCT-GLUCOSE [id number] 07:56:00 Test Item Value Reference Range Interpretation Comments POC-GLUCOSE METER 102 mg/dL 70-110 : TESTED A T [facility] 6720 (BEAKER) (test code = GABRIEL Nunez [facility], 1538) 72167: Meter Shop Superintendent/Techni radha ID = [id number] for OR JONATHAN ZAYAS BASIC METABOLIC [id number] 06:11:00 Test Item Value Reference Range Interpretation [...] S NOT APPLICABLE FOR DIALYSIS PATIEN TS. Meter Shop Superintendent ID - FREDERIC [id number] 06:10:00 Test Item Value Reference Range Interpretation Comments MAGNESIUM (BEAKER) (test code = 1.9 mg/dL 1.6-2.6 627) Meter Shop Superintendent ID - FREDERIC [id number] 06:10:00 Test Item Value Reference Range Interpretation Comments PHOSPHORUS (BEAKER) (test code = 3.2 mg/dL 2.3-4.7 604) Meter Shop Superintendent ID - FREDERIC MCBC (HEMOGRAM ONLY)2020-08-15 05:14:00 [...] = 413) RAD, CHEST, 1 VIEW, NON [id number] 04:34:00while patient is intubated or has chest tubes.Reason for exam:->Status post CV SurgeryShould thisbe performed at the bedside?->Yes [facility] 1955 Sex: MFINAL [...] physician on 08/15/2020 4:32 AM. Signed: Dane Muireptung Verified Date/Time: 08/15/2020 04:34:57 IUM, [id number] 03:56:00 Test Item Value Reference Range Interpretation Comments CALCIUM IONIZED (BEAKER) (test 1.08 mmol/L 1.12-1.27 L code = 698) PH, BLOOD (BEAKER) (test code = 7.42 1810) Prepare [id number] 23:54:00 Test Item Value Reference Range Interpretation Comments CROSSMATCH (test code = 2264) COMPATIBLE Unit ABO (test code = O Pos 2293620) UNIT NUMBER (test code = [id number] 934-0) Status (test code = 3116935) TX_TIMEINCHART Blood Bank Product (test code RED BLOOD CELLS = 2263) PRODUCT CODE (test code = U6202R56 933-2) [facility] CenterPrepare [id number] 23:54:00 Test Item Value Reference Range Interpretation Comments Unit ABO (test code = 4695221) O Pos UNIT NUMBER (test code = [id number] 934-0) Status (test code = 6501298) TX_TIMEINCHART Blood Bank Product (test code FFP = 2263) PRODUCT CODE (test code = W1535U86 933-2) [facility] CenterPrepare [id number] 23:54:00 Test Item Value Reference Range Interpretation Comments Unit ABO (test code = 3148711) O Neg UNIT NUMBER (test code = [id number] 934-0) Status (test code = 2286520) TX_TIMEINCHART Blood Bank Product (test code PLATELETS = 2263) PRODUCT CODE (test code = F7726E63 933-2) [facility] CenterU/S, ABDOMINAL, [id number] 11:53:00Abdomen limited area? Add comment if clarification is needed.->Right upper quadrantReason for exam:->Thrombocytopenia - evaluate for cirrhosis and/or splenemegalyREDLANDS [facility]Name[facility] MEL : 1955 Sex: MFINAL REPORT TECHNIQUE: Grayscale [...] can be seen with fasting. Signed: Shae Wall MDReport Verified Date/Time: 08/14 11:53:09 US abdomen [id number] 11:53:00Interface, External Ris In - 08/14/2020 11:55 [...] which can be seen with fasting. Signed:Shae Wall [facility] Verified Date/Time: 08/14/2020 11:53:09 [facility] CaliforniaOxygen saturation, [id number] 10:46:00 Test Item Value Reference Range Interpretation Comments O2 Saturation (Measured) (test code = 92.4 % 70077-1) [facility] CenterOXYGEN SATURATION, [id number] 10:46:00 Test Item Value Reference Range Interpretation Comments O2 SATURATION (MEASURED) (BEAKER) 92.4 % (test code = 1455) Hemoglobin [id number] 08:35:00 Test Item Value Reference Range Interpretation Comments Hemoglobin A1C (test code = 4548-4) 5.4 % 4.3-6.1 Lab Interpretation (test code = Normal 93398-8) [facility] CenterHEMOGLOBIN [id number] 08:35:00 Test Item Value Reference Range Interpretation Comments HEMOGLOBIN A1C (BEAKER) (test code = 5.4 % 4.3-6.1 368) POCT-GLUCOSE [id number] 06:18:00 Test Item Value Reference Range Interpretation Comments POC-GLUCOSE METER 133 mg/dL 70-110 H : [facility] ([facility]ER[facility] (test code = GABRIEL BORJA [place], 1538) 59722: Meter Shop Superintendent/Techni radha ID = [id number] for BRIELLE LEIVA Hepatitis C [id number] 05:53:00 Test Item Value Reference Range Interpretation Comments Hepatitis C Ab (test Nonreactive Nonreactive code = 90248-2) YARI (test code = YARI) Meter Shop Superintendent ID - FREDERIC Damon Lab Interpretation (test Normal code = 16577-7) [facility] CenterHepatitis B [id number] 05:53:00 Test Item Value Reference Range Interpretation Comments Hep B Core Total Ab Nonreactive Nonreactive (test code = 30607-8) Hep B S Ab (test code = 747.6 <8.0 mIU/mL H 84541-8) HBsAg Screen (test code Nonreactive Nonreactive = 5195-3) YARI (test code = YARI) Meter Shop Superintendent ID - FREDERIC M Lab Interpretation (test Abnormal code = 55304-9) [facility] CenterHIV-1 Antigen with HIV-1/2 [id number] 05:53:00 Test Item Value Reference Range Interpretation Comments HIV-1 Antigen with HIV Nonreactive Nonreactive 1&2 Antibody (test code = 14196-7) YARI (test code = YARI) Meter Shop Superintendent ID - FREDERIC M Lab Interpretation (test Normal code = 75704-8) [facility] CenterHEPATITIS C [id number] 05:53:00 Test Item Value Reference Range Interpretation Comments HEPATITIS C ANTIBODY (BEAKER) Nonreactive Nonreactive (test code = 367) Meter Shop Superintendent ID - FREDERIC MHEPATITIS B [id number] 05:53:00 Test Item Value Reference Range Interpretation Comments HEPATITIS B CORE TOTAL ANTIBODY Nonreactive Nonreactive (BEAKER) (test code = 497) HEPATITIS B SURFACE ANTIBODY 747.6 mIU/mL <8.0 H (BEAKER) (test code = 647) HEPATITIS B SURFACE ANTIGEN (2) Nonreactive Nonreactive (BEAKER) (test code = 2585) Meter Shop Superintendent ID - FREDERIC MHIV-1 ANTIGEN WITH HIV-1/2 [id number] 05:53:00 Test Item Value Reference Range Interpretation Comments HIV-1 ANTIGEN WITH HIV 1\\T\\2 Nonreactive Nonreactive ANTIBODY (2) (BEAKER) (test code = 2586) Meter Shop Superintendent ID - FREDERIC MBASIC METABOLIC [id number] 04:55:00 Test Item Value Reference Range Interpretation [...] S NOT APPLICABLE FOR DIALYSIS PATIEN TS. Meter Shop Superintendent ID - FREDERIC MLipid [id number] 04:39:00 Test Item Value Reference Range Interpretation Comments Triglycerides (test 96 mg/dL code = 2571-8) Cholesterol (test code 79 mg/dL = 2093-3) HDL (test code = 23 mg/dL 2085-9) LDL Calculated (test 37 mg/dL code = 89777-9) YARI (test code = YARI) Triglyceride Reference Range: Low Risk <150 Borderline 150-199 High Risk 200-499 Very High Risk >=500 Cholesterol Reference Range: Low Risk <200 Borderline 200-239 High Risk >240 HDL Cholesterol Reference Range: Low Risk >=60 High Risk <40 LDL Cholesterol Reference Range: Optimal <100 Near Optimal 100-129 Borderline 130-159 High 160-189 Very High >=190 Meter Shop Superintendent ID - FREDERIC Nelson [facility] CenterMAGNESIUM2020-12-23 04:39:00 Test Item Value Reference Range Interpretation Comments MAGNESIUM (BEAKER) (test code = 1.9 mg/dL 1.6-2.6 627) Meter Shop Superintendent ID - FREDERIC [id number] 04:39:00 Test Item Value Reference Range Interpretation Comments PHOSPHORUS (BEAKER) (test code = 4.5 mg/dL 2.3-4.7 604) Meter Shop Superintendent ID - FREDERIC MLIPID [id number] 04:39:00 Test Item Value Reference Range Interpretation Comments TRIGLYCERIDES (BEAKER) (test code = 96 mg/dL 540) CHOLESTEROL (BEAKER) (test code = 79 mg/dL 631) HDL CHOLESTEROL (BEAKER) (test code 23 mg/dL = 976) LDL CHOLESTEROL CALCULATED (Beers EnterprisesAKER) 37 mg/dL (test code = 633) Triglyceride Reference Range: Low Risk <150 Borderline 150-199 High Risk 200-499 Very High Risk >=500Cholesterol Reference Range: Low Risk <200 Borderline 200-239 High Risk >240HDL Cholesterol Reference Range: Low Risk >=60 High Risk <40LDL Cholesterol Reference Range: Optimal <100 Near Optimal 100-129 Borderline 130-159 High 160-189 Very High >=190 Meter Shop Superintendent ID - FREDERIC MRAD, CHEST, 1 VIEW, NON [id number] 04:33:00 while patient is intubated or has chest tubes.Reason for exam:->Status post CV SurgeryShould thisbe performed at the bedside?->Yes [facility] : 1955 Sex: MFINAL [...] positioning should be excluded clinically. Signed: Rich Nunn MDReport Verified Date/Time: 08/14/2020 04:33:06 Blood gas, [id number] 04:21:00 Test Item Value Reference Range Interpretation Comments pH, Arterial (test code = 2744-1) 7.40 7.35-7.45 pCO2, Arterial (test code = 48 35- 45 mm Hg H 2018-) pO2, Arterial (test code = 2703-7) 121 80- 90 mm Hg H O2 Sat, Arterial (test code = 98.4 % 96-97 H 8-6) HCO3, Arterial (test code = 29 mmol/L 21-29 1960-4) Base Excess, Arterial (test code = 3.7 mmol/L -2-3 H 1925-7) Patient Temperature (test code = 36.9 8310-5) FIO2 (test code = 1819) 36 Lab Interpretation (test code = Abnormal 52704-3) [facility] CenterBLOOD GAS, [id number] 04:21:00 Test Item Value Reference Range Interpretation Comments PH ARTERIAL (BEAKER) (test code = 7.40 7.35-7.45 383) PCO2 ARTERIAL (BEAKER) (test code 48 mm Hg 35-45 H = 384) PO2 ARTERIAL (BEAKER) (test code = 121 mm Hg 80-90 H 385) O2 SATURATION ARTERIAL (BEAKER) 98.4 % 96.0-97.0 H (test code = 386) HCO3 ARTERIAL (BEAKER) (test code 29 mmol/L -29 = 388) BASE EXCESS ARTERIAL (BEAKER) 3.7 mmol/L -2.0-3.0 H (test code = 387) PATIENT TEMPERATURE (BEAKER) (test 36.9 code = 1818) FIO2 (BEAKER) (test code = 1819) 36.0 CALCIUM, [id number] 04:14:00 Test Item Value Reference Range Interpretation [...] WBC 0-0 (test code = 413) POCT-GLUCOSE [id number] 00:43:00 Test Item Value Reference Range Interpretation Comments POC-GLUCOSE METER 129 mg/dL 70-110 H : [facility] (BEAKER) (test code = GABRIEL BORJA [place], 1538) 74126: Meter Shop Superintendent/Techni radha ID = [id number] for BRIELLE LEIVA Lactic Acid, [id number] 19:57:00 Test Item Value Reference Range Interpretation Comments Lactate, Art (test code = 1.1 mmol/L 0.5-2.2 2873) YARI (test code = YARI) Meter Shop Superintendent ID - BS Lab Interpretation (test Normal code = 47704-1) [facility] CenterLACTIC ACID, [id number] 19:57:00 Test Item Value Reference Range Interpretation Comments LACTATE BLOOD ARTERIAL (2) 1.1 mmol/L 0.5-2.2 (BEAKER) (test code = 2874) Meter Shop Superintendent ID - BSHGB/HCT (H&H)-Stat [id number] 19:47:00 Test Item Value Reference Range Interpretation Comments Hemoglobin (test code = 786-4) 9.2 13.0- 16.8 GM/DL L Hematocrit (test code = 4544-3) 27.0 % 40-50 L Lab Interpretation (test code = Abnormal 42408-0) [facility] CenterGlucose-Stat [id number] 19:47:00 Test Item Value Reference Range Interpretation Comments Glucose (test code = 2345-7) 146 mg/dL 70-110 H Lab Interpretation (test code = Abnormal 64642-2) [facility] [id number] 19:47:00 Test Item Value Reference Range Interpretation Comments Sodium (test code = 2951-2) 141 meq/L 136-145 Lab Interpretation (test code = Normal 14667-3) [facility] CenterPotassium-Stat [id number] 19:47:00 Test Item Value Reference Range Interpretation Comments Potassium (test code = 2823-3) 3.9 meq/L 3.6-5.5 Lab Interpretation (test code = Normal 45538-3) [facility] CenterODIUM NA-STAT [id number] 19:47:00 Test Item Value Reference Range Interpretation Comments SODIUM (BEAKER) (test code = 381) 141 meq/L 136-145 POTASSIUM-STAT [id number] 19:47:00 Test Item Value Reference Range Interpretation Comments POTASSIUM (BEAKER) (test code = 3.9 meq/L 3.6-5.5 379) BLOOD GAS, [id number] 19:47:00 Test Item Value Reference Range Interpretation [...] (BEAKER) (test code = 1819) 40.0 GLUCOSE-STAT [id number] 19:47:00 Test Item Value Reference Range Interpretation Comments GLUCOSE RANDOM (BEAKER) (test code 146 mg/dL 70-110 H = 652) HGB/HCT (H&H) - STAT [id number] 19:47:00 Test Item Value Reference Range Interpretation Comments HEMOGLOBIN (BEAKER) (test code = 9.2 GM/DL 13.0-16.8 L 410) HEMATOCRIT (BEAKER) (test code = 27.0 % 40.0-50.0 L 411) Hepatitis B surface [id number] 19:30:00 Test Item Value Reference Range Interpretation Comments HBsAg Screen (test code Nonreactive Nonreactive = 5195-3) YARI (test code = YARI) Specimen is considered negative for HBsAg. Lab Interpretation (test Normal code = 09716-8) [facility] CenterHEPATITIS B SURFACE [id number] 19:30:00 Test Item Value Reference Range Interpretation Comments HEPATITIS B SURFACE ANTIGEN (2) Nonreactive Nonreactive (BEAKER) (test code = 2585) Specimen is considered negative for HBsAg.Thromboelastograph (TEG)2020-08-13 18:10:00 Test Item Value Reference Range Interpretation Comments TEG Activated Clotting Time (test 7.8 4.0- 7.0 minutes H code = 99576-3) TEG Fibrinogen Activity (test 58.1 61.0- 73.0 degrees L code = 49406-1) TEG Platelet Aggregation (test 49.3 55.0- 65.0 MM L code = 58246-1) TEG Fibrinolysis (test code = 0.5 % 0-5 53521-3) TEG-H Activated Clotting Time 8.1 4.0- 7.0 minutes H (test code = 1411) TEG-H Fibrinogen Activity (test 64.7 61.0- 73.0 degrees code = 1412) TEG-H Platelet Aggregation (test 53.8 55.0- 65.0 MM L code = 1413) TEG-H Fibrinolysis (test code = 0.0 % 0-5 1414) Lab Interpretation (test code = Abnormal 24408-5) [facility] CenterTHROMBOELASTOGRAPH (TEG)2020-08-13 18:10:00 Test Item Value [...] % 0.0-5.0 code = 1414) BLOOD GAS, [id number] 16:26:00 Test Item Value Reference Range Interpretation [...] (BEAKER) (test code = 1819) 50.0 GLUCOSE-STAT [id number] 16:26:00 Test Item Value Reference Range Interpretation Comments GLUCOSE RANDOM (BEAKER) (test code 165 mg/dL 70-110 H = 652) HGB/HCT (H&H) - STAT [id number] 16:26:00 Test Item Value Reference Range Interpretation Comments HEMOGLOBIN (BEAKER) (test code = 9.6 GM/DL 13.0-16.8 L 410) HEMATOCRIT (BEAKER) (test code = 28.0 % 40.0-50.0 L 411) SODIUM NA-STAT [id number] 16:25:00 Test Item Value Reference Range Interpretation Comments SODIUM (BEAKER) (test code = 381) 143 meq/L 136-145 POTASSIUM-STAT [id number] 16:25:00 Test Item Value Reference Range Interpretation Comments POTASSIUM (BEAKER) (test code = 3.6 meq/L 3.6-5.5 379) RAD, CHEST, 1 VIEW, NON [id number] 15:39:00Reason for exam:->pleural effusions/p intubation Should this be performed at the bedside?->Yes [facility] : 1955 Sex: MFINAL REPORT RAD, CHEST, 1 VIEW, NON DEPT INDICATION: pleural effusion COMPARISON: 1 hour prior FINDINGS: Portable frontal view of the chest. IMPRESSION: Support Lines: Stable. Lungs and pleura: Stable effusion on the right. No pneumothorax.Heart and mediastinum: Stablecontours. Stable surgical changes.Additional findings: None. Signed: JR Culver Robert MDReport Verified Date/Time: 08/13/2020 15:39:40 Reading Location: [facility] Radiology Reading Room PT/[id number] 15:02:00 Test Item Value Reference Range Interpretation [...] is2.5-3.5 for patients wiht mechanical heart valves.Prothrombin time/[id number] 15:01:00 Test Item Value Reference Range Interpretation [...] valves. Lab Interpretation Abnormal (test code = 24613-1) [facility] CenterPROTHROMBIN TIME/[id number] 15:01:00 Test Item Value Reference Range Interpretation [...] is2.5-3.5 for patients wiht mechanical heart valves.CALCIUM, [id number] 14:59:00 Test Item Value Reference Range Interpretation Comments CALCIUM IONIZED (BEAKER) (test 1.26 mmol/L 1.12-1.27 code = 698) PH, BLOOD (BEAKER) (test code = 7.54 1810) OXYGEN SATURATION, [id number] 14:57:00 Test Item Value Reference Range Interpretation Comments O2 SATURATION (MEASURED) (BEAKER) 94.2 % (test code = 1455) Comprehensive metabolic [id number] 14:18:00 Test Item Value Reference Range Interpretation Comments Protein, Total (test 5.1 6.0- 8.3 gm/dL L Speci men slightly code = 2885-2) hemolyzed Albumin (test code = 3.0 g/dL 3.5-5 L Specime n slightly 18151-0) hemolyzed Alkaline Phosphatase 65 U/L 40-150 (test code = 6768-6) Total Bilirubin (test 1.0 mg/dL 0.2-1.2 Specim en slightly code = 1975-2) hemolyzed Sodium (test code = 145 meq/L 679-381 9098-2) Potassium (test code 3.9 meq/L 3.5-5.1 Specime n slightly = 2823-3) hemolyzed Chloride (test code = 106 meq/L 98-107 5-0) CO2 (test code = 29 meq/L 22-29 2027-9) BUN (test code = 23 mg/dL 7-21 H 3094-0) Creatinine (test code 4.66 mg/dL 0.57-1.25 H Specim en slightly = 2160-0) hemolyzed Glucose (test code = 164 mg/dL 70-105 H 2345-7) Calcium (test code = 10.4 mg/dL 8.4-10.2 H Discord ant CALCIUM 47553-3) result compared to previous result ; clinical correlation required. AST (test code = 24 U/L 5-34 Specimen sl ightly 1920-8) hemolyzed ALT (test code = 13 U/L 6-55 Specimen sl ightly 1742-6) hemolyzed EGFR (test code = 13 mL/min/1.73 [place] [address]-5) NOT ACCURATE CREATININE CLEARANCE IN PREDICTING GLOMERULAR FILTRATION RATE . ESTIMATED GFR I S NOT APPLICABLE FOR DIALYSIS PATIEN TS. YARI (test code = YARI) Meter Shop Superintendent ID - RM Lab Interpretation Abnormal (test code = 85389-5) [facility] CenterCOMPREHENSIVE METABOLIC [id number] 14:18:00 Test Item Value Reference Range Interpretation [...] S NOT APPLICABLE FOR DIALYSIS PATIEN TS. Meter Shop Superintendent ID - [id number] 14:15:00 Test Item Value Reference Range Interpretation Comments MAGNESIUM (BEAKER) 1.9 mg/dL 1.6-2.6 Specimen slightly (test code = 627) hemolyzed Meter Shop Superintendent ID - [id number] 14:15:00 Test Item Value Reference Range Interpretation Comments PHOSPHORUS (BEAKER) 3.0 mg/dL 2.3-4.7 Specimen slightly (test code = 604) hemolyzed Meter Shop Superintendent ID - RMBLOOD GAS, [id number] 14:12:00 Test Item Value Reference Range Interpretation [...] (BEAKER) (test code = 1819) 50.0 GLUCOSE-STAT [id number] 14:12:00 Test Item Value Reference Range Interpretation Comments GLUCOSE RANDOM (BEAKER) (test code 161 mg/dL 70-110 H = 652) HGB/HCT (H&H) - STAT [id number] 14:12:00 Test Item Value Reference Range Interpretation Comments HEMOGLOBIN (BEAKER) (test code = 9.8 GM/DL 13.0-16.8 L 410) HEMATOCRIT (BEAKER) (test code = 29.0 % 40.0-50.0 L 411) LACTIC ACID, [id number] 14:10:00 Test Item Value Reference Range Interpretation Comments LACTATE BLOOD 1.3 mmol/L 0.5-2.2 Specimen sligh tly ARTERIAL (2) (BEAKER) hemoly zed (test code = 2874) Meter Shop Superintendent ID - RMRAD, CHEST, 1 VIEW, NON [id number] 14:10:00Reason for exam:- >Status post CV Surgery post op day 0Should this be performed at the bedside?->[facility] : 1955 Sex: MFINAL [...] MDReport Verified Date/Time: 08/13/2020 14:10:40 Reading Location: [facility] Radiology Reading Room SODIUM NA-STAT [id number] 14:04:00 Test Item Value Reference Range Interpretation Comments SODIUM (BEAKER) (test code = 381) 140 meq/L 136-145 POTASSIUM-STAT [id number] 14:04:00 Test Item Value Reference Range Interpretation [...] (BEAKER) (test code = 413) OXYGEN SATURATION, [id number] 13:57:00 Test Item Value Reference Range Interpretation Comments O2 SATURATION (MEASURED) (BEAKER) 93.6 % (test code = 1455) LACTATE DEHYDROGENASE (LDH)2020-08-13 13:28:00 Test Item Value Reference Range Interpretation Comments LACTATE DEHYDROGENASE 209 U/L 125-220 Specim en slightly (BEAKER) (test code = hemoly zed 635) Meter Shop Superintendent ID - [id number] 13:25:00 Test Item Value Reference Range Interpretation Comments PHOSPHORUS (BEAKER) 3.0 mg/dL 2.3-4.7 Specimen slightly (test code = 604) hemolyzed Meter Shop Superintendent ID - MONIKAGBILIRUBIN, TOTAL AND [id number] 13:25:00 Test Item Value Reference Range Interpretation Comments BILIRUBIN TOTAL 0.6 mg/dL 0.2-1.2 Specimen sli ghtly (BEAKER) (test code = hemoly zed 377) BILIRUBIN DIRECT 0.3 mg/dL 0.1-0.5 Specimen sl ightly (BEAKER) (test code = hemoly zed 706) Meter Shop Superintendent ID - YOGLUXNOgveuzpsyeh1889-22-32 13:23:00 Test Item Value Reference Range Interpretation Comments Haptoglobin (test code = 61 mg/dL 14-258 4542-7) YARI (test code = YARI) Meter Shop Superintendent ID - MONIKAG Lab Interpretation (test Normal code = 97626-0) [facility] 13:23:00 Test Item Value Reference Range Interpretation Comments HAPTOGLOBIN (BEAKER) (test code = 61 mg/dL 14-258 366) Meter Shop Superintendent ID - HYFNVZXKjrubreuvc8570-62-57 13:22:00 Test Item Value Reference Range Interpretation Comments Fibrinogen (test code = 3255-7) 255 mg/dl 225-434 Lab Interpretation (test code = Normal 71863-8) [facility]eraPTT[facility] 13:22:00 Test Item Value Reference Range Interpretation Comments PTT (test code = 46310-7) 33.2 22.5- 36.0 seconds Lab Interpretation (test code = Normal 47778-9) [facility]FIB[facility]INOGEN2020-12-22 13:22:00 Test Item Value Reference Range Interpretation Comments FIBRINOGEN LEVEL (BEAKER) (test 255 mg/dl 225-434 code = 658) [id number] 13:22:00 Test Item Value Reference Range Interpretation Comments PARTIAL THROMBOPLASTIN TIME 33.2 seconds 22.5-36.0 (BEAKER) (test code = 760) PROTHROMBIN TIME/[id number] 13:21:00 Test Item Value Reference Range Interpretation [...] U/L 125-220 YARI (test code = YARI) Meter Shop Superintendent ID - CARLPALMER Lab Interpretation (test Normal code = 97518-2) [facility] CenterBilirubin, total and ahloia7510-36-75 13:16:00 Test Item Value Reference Range Interpretation Comments Total Bilirubin (test code 1.0 mg/dL 0.2-1.2 = 1975-2) Bilirubin, Direct (test 0.5 mg/dL 0.1-0.5 code = 1967-7) YARI (test code = YARI) Meter Shop Superintendent ID - ROSIANG Lab Interpretation (test Normal code = 09188-1) [facility] CenterBILIRUBIN, TOTAL AND [id number] 13:16:00 Test Item Value Reference Range Interpretation Comments BILIRUBIN TOTAL (BEAKER) (test code 1.0 mg/dL 0.2-1.2 = 377) BILIRUBIN DIRECT (BEAKER) (test 0.5 mg/dL 0.1-0.5 code = 706) Meter Shop Superintendent ID - ROSAGUSTINGLACTATE DEHYDROGENASE (LDH)2020-08-13 13:16:00 Test Item Value Reference Range Interpretation Comments LACTATE DEHYDROGENASE (BEAKER) (test 171 U/L 125-220 code = 635) Meter Shop Superintendent ID - ROSIANGPOC ACTIVATED CLOTTING [id number] 13:11:00 Test Item Value Reference Range Interpretation Comments Activated Clotting Time 120 sec : 74 -137 seconds, (test code = 441) Baseline: TESTED AT [address], [facility] 30: Meter Shop Superintendent/Techni radha ID = [id number] for KI BLER, ARELIS [facility] MedicinePOCT-[id number] 13:11:00 Test Item Value Reference Range Interpretation Comments ACTIVATED CLOTTING TIME 120 sec : 74 -137 seconds, (BEAKER) (test code = Baseli ne: TESTED AT 441) [address], [facility] 30: Meter Shop Superintendent/Techni radha ID = [id number] for KI BLER, ARELIS JBZN-[id number] 13:11:00 Test Item Value Reference Range Interpretation Comments ACTIVATED CLOTTING TIME 120 sec : 74 -137 seconds, (BEAKER) (test code = Baseli ne: TESTED AT 441) [address], [facility] 30: Meter Shop Superintendent/Techni radha ID = [id number] for KI BLER, ARELIS YRCK-[id number] 13:11:00 Test Item Value Reference Range Interpretation Comments ACTIVATED CLOTTING TIME 984 sec : 74 -137 seconds, (BEAKER) (test code = Baseli ne: TESTED AT 441) [address], [facility] 30: Meter Shop Superintendent/Techni radha ID = [id number] for KI BLER, ARELIS GHSL-[id number] 13:11:00 Test Item Value Reference Range Interpretation Comments ACTIVATED CLOTTING TIME 912 sec : 74 -137 seconds, (BEAKER) (test code = Baseli ne: TESTED AT 441) [address], [facility] 30: Meter Shop Superintendent/Techni radha ID = [id number] for KI BLER, ARELIS UHOD-[id number] 13:11:00 Test Item Value Reference Range Interpretation Comments ACTIVATED CLOTTING TIME > sec : 74 -137 seconds, (BEAKER) (test code = Baseli ne: TESTED AT 441) [facility] [address] [facility], [address] 30: Meter Shop Superintendent/Techni radha ID = [id number] for ARELIS ROBLES [id number] 13:11:00 Test Item Value Reference Range Interpretation Comments ACTIVATED CLOTTING TIME 131 sec : 74 -137 seconds, (BEAKER) (test code = Virgilio ne: TESTED AT 441) [facility] [address] [facility], [address] 30: Meter Shop Superintendent/Techni radha ID = [id number] for SUJEY CARLSON CBC with platelet count + automated [id number] 13:04:00 Test Item Value Reference Range Interpretation [...] 450 K/CU MM MPV (test code = 84297-5) 10.0 fL 9.4-12.4 nRBC (test code = [...] 2801) Lab Interpretation (test code = Abnormal 05053-2) [facility] W/PLT COUNT & AUTO [id number] 13:04:00 Test Item Value Reference Range Interpretation [...] PERCENT (BEAKER) (test code = 2801) RETICULOCYTE [id number] 13:03:00 Test Item Value Reference Range Interpretation Comments RETICULOCYTE COUNT PCT (BEAKER) (test 2.1 % 0.5-1.8 H code = 575) Meter Shop Superintendent ID - [id number] ohvuv9698-48-00 12:58:00 Test Item Value Reference Range Interpretation Comments % Retic (test code = 1.8 % 0.5-1.8 87400-6) YARI (test code = YARI) Meter Shop Superintendent ID - [id number] Lab Interpretation (test Normal code = 69706-0) [facility] CenterPlatelet [id number] 12:58:00 Test Item Value Reference Range Interpretation Comments Platelets (test code = 138 150- 450 K/CU MM L 777-3) YARI (test code = YARI) Meter Shop Superintendent ID - [id number] Lab Interpretation (test Abnormal code = 75044-1) [facility] CenterPLATELET [id number] 12:58:00 Test Item Value Reference Range Interpretation Comments PLATELET COUNT (BEAKER) (test 138 K/CU MM 150-450 L code = 756) Meter Shop Superintendent ID - [id number] [id number] 12:58:00 Test Item Value Reference Range Interpretation Comments RETICULOCYTE COUNT PCT (BEAKER) (test 1.8 % 0.5-1.8 code = 575) Meter Shop Superintendent ID - [id number] NA-STAT [id number] 12:45:00 Test Item Value Reference Range Interpretation Comments SODIUM (BEAKER) (test code = 381) 140 meq/L 136-145 BLOOD GAS, [id number] 12:45:00 Test Item Value Reference Range Interpretation [...] (BEAKER) (test code = 1819) 100.0 GLUCOSE-STAT [id number] 12:45:00 Test Item Value Reference Range Interpretation Comments GLUCOSE RANDOM (BEAKER) (test code 179 mg/dL 70-110 H = 652) POTASSIUM-STAT [id number] 12:45:00 Test Item Value Reference Range Interpretation Comments POTASSIUM (BEAKER) (test code = 3.3 meq/L 3.6-5.5 L 379) HGB/HCT (H&H) - STAT [id number] 12:45:00 Test Item Value Reference Range Interpretation Comments HEMOGLOBIN (BEAKER) (test code = 9.8 GM/DL 13.0-16.8 L 410) HEMATOCRIT (BEAKER) (test code = 29.0 % 40.0-50.0 L 411) Peripheral Blood Smear - Hold [id number] 12:38:00 Test Item Value Reference Range Interpretation Comments Peripheral Smear Save (test code = save 1815) [facility] CenterPER[facility]HER[facility] - HOLD [id number] 12:38:00 Test Item Value Reference Range Interpretation Comments PERIPHERAL SMEAR SAVE (BEAKER) (test save code = 1815) PROTHROMBIN TIME/[id number] 12:26:00 Test Item Value Reference Range Interpretation [...] INR is2.5-3.5 for patients wiht mechanical heart valves.[id number] 12:26:00 Test Item Value Reference Range Interpretation Comments FIBRINOGEN LEVEL (BEAKER) (test 254 mg/dl 225-434 code = 658) [id number] 12:26:00 Test Item Value Reference Range Interpretation [...] 0.1 % 0.0-5.0 code = 1414) PLATELET [id number] 12:11:00 Test Item Value Reference Range Interpretation Comments PLATELET COUNT (BEAKER) (test 171 K/CU MM 150-450 code = 756) Meter Shop Superintendent ID - [id number] NA-STAT [id number] 12:02:00 Test Item Value Reference Range Interpretation Comments SODIUM (BEAKER) (test code = 381) 142 meq/L 136-145 BLOOD GAS, [id number] 12:02:00 Test Item Value Reference Range Interpretation [...] (BEAKER) (test code = 1819) 100.0 POTASSIUM-STAT [id number] 12:02:00 Test Item Value Reference Range Interpretation Comments POTASSIUM (BEAKER) (test code = 3.2 meq/L 3.6-5.5 L 379) GLUCOSE-STAT [id number] 12:02:00 Test Item Value Reference Range Interpretation Comments GLUCOSE RANDOM (BEAKER) (test code 166 mg/dL 70-110 H = 652) HGB/HCT (H&H) - STAT [id number] 12:02:00 Test Item Value Reference Range Interpretation Comments HEMOGLOBIN (BEAKER) (test code = 8.1 GM/DL 13.0-16.8 L 410) HEMATOCRIT (BEAKER) (test code = 24.0 % 40.0-50.0 L 411) CALCIUM, [id number] 12:01:00 Test Item Value Reference Range Interpretation Comments CALCIUM IONIZED (BEAKER) (test 1.12 mmol/L 1.12-1.27 code = 698) PH, BLOOD (BEAKER) (test code = 7.48 1810) [id number] 11:42:00 Test Item Value Reference Range Interpretation Comments PARTIAL THROMBOPLASTIN TIME 34.0 seconds 22.5-36.0 (BEAKER) (test code = 760) PROTHROMBIN TIME/[id number] 11:41:00 Test Item Value Reference Range Interpretation [...] INR is2.5-3.5 for patients wiht mechanical heart valves.[id number] 11:41:00 Test Item Value Reference Range Interpretation Comments FIBRINOGEN LEVEL (BEAKER) (test 255 mg/dl 225-434 code = 658) HEMOGLOBIN [id number] 11:34:00 Test Item Value Reference Range Interpretation Comments HEMOGLOBIN A1C (BEAKER) (test code = 4.9 % 4.3-6.1 368) PLATELET [id number] 11:08:00 Test Item Value Reference Range Interpretation Comments PLATELET COUNT (BEAKER) 89 K/CU MM 150-450 L POST TRANSFUSION (test code = 756) Meter Shop Superintendent ID - [id number] GAS, [id number] 11:02:00 Test Item Value Reference Range Interpretation [...] (BEAKER) (test code = 1819) 100.0 POTASSIUM-STAT [id number] 11:02:00 Test Item Value Reference Range Interpretation Comments POTASSIUM (BEAKER) (test code = 3.4 meq/L 3.6-5.5 L 379) GLUCOSE-STAT [id number] 11:02:00 Test Item Value Reference Range Interpretation Comments GLUCOSE RANDOM (BEAKER) (test code 140 mg/dL 70-110 H = 652) HGB/HCT (H&H) - STAT [id number] 11:02:00 Test Item Value Reference Range Interpretation Comments HEMOGLOBIN (BEAKER) (test code = 7.5 GM/DL 13.0-16.8 L 410) HEMATOCRIT (BEAKER) (test code = 22.0 % 40.0-50.0 L 411) SODIUM NA-STAT [id number] 11:01:00 Test Item Value Reference Range Interpretation Comments SODIUM (BEAKER) (test code = 381) 140 meq/L 136-145 [id number] 10:59:00 Test Item Value Reference Range Interpretation Comments PARTIAL THROMBOPLASTIN TIME 38.7 seconds 22.5-36.0 H (BEAKER) (test code = 760) PROTHROMBIN TIME/[id number] 10:58:00 Test Item Value Reference Range Interpretation [...] INR is2.5-3.5 for patients wiht mechanical heart valves.YUVDMDMGZN0969-70-03 10:58:00 Test Item Value Reference Range Interpretation Comments FIBRINOGEN LEVEL (BEAKER) (test 250 mg/dl 225-434 code = 658) PLATELET [id number] 10:47:00 Test Item Value Reference Range Interpretation Comments PLATELET COUNT (BEAKER) (test code 7 K/CU MM 150-450 LL = 756) Meter Shop Superintendent ID - [id number] ID - [id number], [id number] 10:40:00 Test Item Value Reference Range Interpretation Comments CALCIUM IONIZED (BEAKER) (test 1.09 mmol/L 1.12-1.27 L code = 698) PH, BLOOD (BEAKER) (test code = 7.46 1810) BLOOD GAS, [id number] 10:40:00 Test Item Value Reference Range Interpretation [...] (BEAKER) (test code = 1819) 100.0 GLUCOSE-STAT [id number] 10:40:00 Test Item Value Reference Range Interpretation Comments GLUCOSE RANDOM (BEAKER) (test code 136 mg/dL 70-110 H = 652) HGB/HCT (H&H) - STAT [id number] 10:40:00 Test Item Value Reference Range Interpretation Comments HEMOGLOBIN (BEAKER) (test code = 8.0 GM/DL 13.0-16.8 L 410) HEMATOCRIT (BEAKER) (test code = 24.0 % 40.0-50.0 L 411) SODIUM NA-STAT [id number] 10:38:00 Test Item Value Reference Range Interpretation Comments SODIUM (BEAKER) (test code = 381) 139 meq/L 136-145 POTASSIUM-STAT [id number] 10:38:00 Test Item Value Reference Range Interpretation Comments POTASSIUM (BEAKER) (test code = 3.6 meq/L 3.6-5.5 379) BLOOD GAS, [id number] 09:51:00 Test Item Value Reference Range Interpretation [...] (BEAKER) (test code = 1819) 70.0 GLUCOSE-STAT [id number] 09:51:00 Test Item Value Reference Range Interpretation Comments GLUCOSE RANDOM (BEAKER) (test code 133 mg/dL 70-110 H = 652) HGB/HCT (H&H) - STAT [id number] 09:51:00 Test Item Value Reference Range Interpretation Comments HEMOGLOBIN (BEAKER) (test code = 8.3 GM/DL 13.0-16.8 L 410) HEMATOCRIT (BEAKER) (test code = 24.0 % 40.0-50.0 L 411) SODIUM NA-STAT [id number] 09:50:00 Test Item Value Reference Range Interpretation Comments SODIUM (BEAKER) (test code = 381) 140 meq/L 136-145 POTASSIUM-STAT [id number] 09:50:00 Test Item Value Reference Range Interpretation Comments POTASSIUM (BEAKER) (test code = 4.0 meq/L 3.6-5.5 379) BLOOD GAS, [id number] 09:26:00 Test Item Value Reference Range Interpretation [...] (BEAKER) (test code = 1819) 70.0 GLUCOSE-STAT [id number] 09:26:00 Test Item Value Reference Range Interpretation Comments GLUCOSE RANDOM (BEAKER) (test code 151 mg/dL 70-110 H = 652) HGB/HCT (H&H) - STAT [id number] 09:26:00 Test Item Value Reference Range Interpretation Comments HEMOGLOBIN (BEAKER) (test code = 6.8 GM/DL 13.0-16.8 L 410) HEMATOCRIT (BEAKER) (test code = 20.0 % 40.0-50.0 L 411) SODIUM NA-STAT [id number] 09:25:00 Test Item Value Reference Range Interpretation Comments SODIUM (BEAKER) (test code = 381) 140 meq/L 136-145 POTASSIUM-STAT [id number] 09:25:00 Test Item Value Reference Range Interpretation Comments POTASSIUM (BEAKER) (test code = 4.1 meq/L 3.6-5.5 379) ABORH, [id number] 08:31:00 Test Item Value Reference Range Interpretation Comments ABO Grouping (test code = 2588) O Rh Factor (test code = 2589) POS [facility]TE[facility] 08:21:33Kristy Khan MD 08/13/2020 10:55 AMTEE Date: 08/13/2020 8:21 AM Sex: Male Location: OR Requesting Physician: Stewart Flores MD Examiner: Kristy Khan MDJacobs, Daniel Aaron [...] as previously described. Exam otherwise as previously described.[facility] CenterGLU[facility]SE-STAT [id number] 07:56:00 Test Item Value Reference Range Interpretation Comments GLUCOSE RANDOM (BEAKER) (test code = 93 mg/dL 70-110 652) SODIUM NA-STAT [id number] 07:56:00 Test Item Value Reference Range Interpretation Comments SODIUM (BEAKER) (test code = 381) 141 meq/L 136-145 BLOOD GAS, [id number] 07:56:00 Test Item Value Reference Range Interpretation [...] (BEAKER) (test code = 1819) 100.0 POTASSIUM-STAT [id number] 07:56:00 Test Item Value Reference Range Interpretation Comments POTASSIUM (BEAKER) (test code = 2.8 meq/L 3.6-5.5 L 379) HGB/HCT (H&H) - STAT [id number] 07:56:00 Test Item Value Reference Range Interpretation Comments HEMOGLOBIN (BEAKER) (test code = 10.1 GM/DL 13.0-16.8 L 410) HEMATOCRIT (BEAKER) (test code = 30.0 % 40.0-50.0 L 411) CALCIUM, [id number] 07:55:00 Test Item Value Reference Range Interpretation Comments CALCIUM IONIZED (BEAKER) (test 1.13 mmol/L 1.12-1.27 code = 698) PH, BLOOD (BEAKER) (test code = 7.46 1810) Type and screen, [id number] 07:26:00 Test Item Value Reference Range Interpretation Comments Ab Scrn (test code = NEGATIVE entered manually echo 1 890-4) [facility] CenterCOMPREHENSIVE METABOLIC [id number] 07:17:00 Test Item Value Reference Range Interpretation [...] S NOT APPLICABLE FOR DIALYSIS PATIEN TS. Meter Shop Superintendent ID - BHARAT [id number] 07:09:00 Test Item Value Reference Range Interpretation Comments MAGNESIUM (BEAKER) (test code = 2.1 mg/dL 1.6-2.6 627) Meter Shop Superintendent ID - BHARAT LLIPID [id number] 07:09:00 Test Item Value Reference Range Interpretation [...] Borderline 130-159 High 160-189 Very High >=190 Meter Shop Superintendent ID - JBKAZBSHEG5622-17-14 07:01:00 Test Item Value Reference Range Interpretation Comments PARTIAL THROMBOPLASTIN TIME 30.9 seconds 22.5-36.0 (BEAKER) (test code = 760) PROTHROMBIN TIME/[id number] 07:00:00 Test Item Value Reference Range Interpretation Comments PROTIME (RYANAKER) (test code = 14.2 seconds 11.9-14.2 759) INR (RYANAKER) (test code = 370) 1.14 <=5.90 Effective 01/18/2019: PT Reference Range ChangeNew: 11.9-14.2 Previous: 11.7- 14.7RECOMMENDED COUMADIN/WARFARIN INR THERAPY RANGESSTANDARD DOSE: 2.0-3.0 Includes: PROPHYLAXIS for venous thrombosis, systemic embolization; TREATMENT for venous thrombosis and/or pulmonary embolus.HIGH RISK: Target INR is2.5-3.5 for patients wiht mechanical heart valves.RAD, CHEST, 1 VIEW, NON [id number] 07:00:00Reason for exam:->pre opShould this be performed at the bedside?->YesRED[facility] MEL : 1955 Sex: MFINAL REPORT History: Preoperative [...] the spine and right shoulder. Signed: Rich Nunn MDReport Verified Date/Time: 08/13/2020 07:00:58 CBC W/PLT COUNT & AUTO [id number] 06:48:00 Test Item Value Reference Range Interpretation [...] PERCENT (BEAKER) (test code = 2801) POCT-GLUCOSE [id number] 06:14:00 Test Item Value Reference Range Interpretation Comments POC-GLUCOSE METER 81 mg/dL 70-110 : TESTED A T [facility] [address] ([facility]) (test code = GABRIEL BORJA [place], 1538) [address]: Meter Shop Superintendent/Techni radha ID = [id number] for JORD AN, LACRYSTAL SARS-COV2/RT-PCR ([facility])2020-08-08 23:08:00 Test Item Value Reference Range Interpretation Comments SARS-COV2/RT-PCR (test Negative Not Detected, Negative, code = 1981750) See external report for linked test SARS-COV-2 PERFORMING LAB [facility] RAJAT (test code = 7545447) Negative result for this test determines that [...] Toney SARS-CoV-2 assay.Fact Sheet for Healthcare Providers:https://www.molecular.toney/david/ SX_KEOV-OaB-6_BOQ_Odfh_Rwmgl_04-404947.pdfFact Sheet for Healthcare Patients:https://www.molecular.ab radha/david/PN_VFOG-IlD-6_Kyunzjg_Klaw_Pdjuj_QC_31-127241V9.pdfPerforming Laboratory:[place] [address] [place] [address] CHEM SALDU6201-56-12 19:23:0035[facility] HermannCHEM XJRJQ8808-83-56 19:23:726[address] [facility] HermannCHEM [id number] 19:23:17251Bndivvym HermannCHEM PANEL 2017-06-01 19:23:004.6[facility] HermannCHEM BXAQR2868-18-44 19:23:57388Tnjegedf HermannCHEM UODSW3096-16-41 19:23:0011.6[facility] HermannCHEM GZPZJ0387-10-69 19:23:0034.0[facility] YujnhjqNGHGYLIIQL4771-63-38 15:52:0012.2[facility] ZMRWZPYBEF5042-28-57 15:52:0036.0[facility] PrtqalaXFFDZGXTOC2972-02-91 15:52:0033 Memorial BphkpedAXYNEOQGJW9313-57-81 15:52:58661Auucoirn HermannHEMATOLOGY 2017-06-01 15:52:93040Smbtaxye NtvbfesMXMRNXSPBG4688-63-25 15:52:004.3[facility] KcuyqavPKZVLFMVYT6563-96-51 15:52:39747Jirnjtyj HermannCHEM PXPYV5557-39-57 20:33:0011[facility] HermannCHEM EVJII7365-49-90 20:33:0010.8[facility] HermannCHEM FVOIK7562-68-38 20:33:009.2[facility] HermannCHEM DQVGT2517-94-41 20:33:0035 [facility] HermannCHEM TEFWZ7389-52-33 20:33:005.40[facility] HermannCHEM PANEL 2017-03-04 20:33:02140Xsqwdbwi HermannCHEM NDBTW9234-05-47 20:33:50501Fpdflvhn HermannCHEM VAASD8787-98-82 20:33:003.8[facility] HermannCHEM IPSMN8557-12-93 20:33:0097[facility] HermannCHEM BYNEV3340-14-99 20:33:0034[facility] [place] CNPCPALYDQ2613-40-78 20:33:005.4[facility] QjucovjBMGZAWFCOP2844-27-73 20:33:000.5 Memorial TuuseeiAFTUOGKWSK9577-50-08 20:33:001.1[facility] HermannHEMATOLOGY 2017-03-04 20:33:003.4[facility] UyjnzarZDIZZPFJOY7778-02-30 20:33:000.1[facility] DsbtzzwNNLUFEIRPO6408-49-00 20:33:000.4[facility] AbqfunhUFCOBMKIQP2447-34-21 20:33:0052.7[facility] ZlqjqjsCSWIYFWAHN8892-41-38 20:33:0032.9[facility] [place] LEVNOCTNXJ6021-81-05 20:33:0010.3[facility] YezzuvpKAIMOROWRO8256-16-42 20:33:00 3.6Memorial PohfcazLRKZTEIADB0752-59-11 20:33:0091.1[facility] HermannHEMATOLOGY 2017-03-04 20:33:004.52[facility] NypovdpTNJSSWESZY7734-42-70 20:33:0013.5[facility] KbgqplzXEIPCDERQP3846-62-82 20:33:00 Test Item Value Reference Range Interpretation Comments MCH (test code = MCH) 29.9 pg 27.0-31.0 Memorial CckvzmpQCWBBGACBD5506-16-37 20:33:0041.2[facility] HermannHEMATOLOGY 2017-03-04 20:33:008.1[facility] TelvnanRAMMMXFIIC5618-30-14 20:33:0032.8[facility]orial QjilxebPOSZWVQRNJ5080-51-35 20:33:0014.1[facility]orial JqkjxsxQKNDIOPZSU9347-96-59 20:33:98396Lqqqmngq AnvzookPWKTUBAHCR3663-22-53 20:33:0010.3[facility] [place] OXNURGFWMD5824-32-88 15:26:0013.9[facility]orial MwrmfveQKMKWZMRUY5389-20-52 15:26:00 126[facility] EaxvmnrNQWSQXLOHG6573-50-40 15:26:0043[facility] HermannHEMATOLOGY 2017-02-26 15:26:0041.0[facility] RzepgihCUAPSLYQKK9304-41-54 15:26:004.1[facility] JipjboaPZHEQPZGDD1638-46-63 15:26:03934Qnicjzub WcmpdyoELPYPDOMHR5763-48-02 15:26:80674Kmtvfnsv FzadgmzBXLZBPINKHEL7786-71-23 11:43:77362Cirhfzsz Colin KPUDAULOGZXU9232-30-35 11:43:0046Memorial PcpxpcwPGZJVQANAIYE1362-62-29 11:43:00 103[facility] YrjnpqdDBHSPHPBIXWI1188-66-10 11:43:004.3[facility] [place] MPVRHQAKIEKV0903-24-03 11:43:13529Huyasrnw UomerceNSHKKLCDVGHT7993-73-73 11:43:0015.6[facility]orial OvxhcvhEAFMOTYIVQAS7776-21-27 11:43:0046.0[facility] BLOOD BANK RCSHDHF7751-61-27 15:22:00Negative (02/24/17 10:22 AM)[facility] [place] IUGLIQLVBQXJ1087-31-28 15:22:0013.1[facility] OvkaxxqOVMDYVOHNFJU6651-62-22 15:22:0011[facility] McbuflgDIGYTYORWCVA4249-34-94 15:22:009.3[facility] LUEUTTHBPMMH1900-35-26 15:22:45666Ureatuqz ZywniriGGRVJUGAYPYT1769-00-61 15:22:0028[facility] NxyqaebTLOENFVKUAFB3895-44-06 15:22:06895Xnumoryu [place] DJEASGDYLOSQ0115-37-87 15:22:004.1[facility] UmyfnasSEOOEHJFXKCP1038-49-91 15:22:005.30[facility] IyacmodYXQNOCEJFGIK8968-74-96 15:22:0047[facility] ZEWQVURLVHHS1334-94-84 15:22:53501Jghpneep KhpysxgLFGHTVXWYX8939-43-99 15:22:00 Test Item Value Reference Range Interpretation Comments PT (test code = PT) 12.7 s 12.0-14.7 Memorial KqljaygGCBOIWLDSV2660-71-25 15:22:000.93[facility] HermannHEMATOLOGY 2017-02-24 15:22:00 Test Item Value Reference Range Interpretation Comments PTT (test code = PTT) 28.3 s 22.9-35.8 Memorial NhnunhkMFAVZTMCCL1775-25-95 15:22:008.7[facility] Hermann[facility] 2017-02-24 15:22:99663Aaqmdnmx DkpxcxmJBZSVQXGKY2304-36-44 15:22:0032.9[facility] WunppudZDZWPMQIQI5544-16-28 15:22:0014.7[facility] VupvoxpXVHQFWGLRF6831-34-82 15:22:004.73[facility] MgwnazzJMRAJRBWOO5711-05-25 15:22:0014.1[facility] PBKEIQLBDE6898-70-94 15:22:0012.8[facility] UrpdsnoDDSXJYKBCQ1578-62-53 15:22:00 90.2[facility] TbpnaqmFGPMJRUBMO8468-06-17 15:22:0042.7[facility] 2017-02-24 15:22:00 Test Item Value Reference Range Interpretation Comments MCH (test code = MCH) 29.7 pg 27.0-31.0 [facility] LengvrpIGZSFKJTBJ8992-30-75 15:22:000.1[facility] 2017-02-24 15:22:008.0[facility] KkkqkmwDUWYFLFUBM4583-00-55 15:22:001.0[facility] GmcqzlfUQQIIISLAC1141-44-08 15:22:007.6[facility] FeeuwgpBGBIBEEXXD2323-96-46 15:22:003.4[facility] LglavnoIFNXTEEBUL9537-02-06 15:22:003.6[facility] UZZHHICJSX6869-42-21 15:22:0028.2[facility] CqwdwgkUBZUGJDAFQ4559-82-47 15:22:00 0.4[facility] QfqdwasBLUTVOXENY9059-57-60 15:22:001.0[facility] 2017-02-24 15:22:0059.4[facility]annSPECIAL OEIDICYUY2001-69-31 15:22:008.0 [facility]
--- NOTE | 2020-09-11 13:18 | RAD REPORT ---
EXAM DESCRIPTION: RAD - Chest Single View - 09/11/2020 1:05 pm CLINICAL HISTORY: DYSPNEA Chest pain. COMPARISON: Chest Single View dated 08/24/2020; Chest Pa And Lat (2 Views) dated 07/29/2020; Chest Sing le View dated 06/16/2017; Chest Single View dated 11/23/2016 FINDINGS: Portable technique limits examination quality. Moderate bilateral pleural effusions are noted. Moderate pulmonary edema is seen. The heart is enlarg ed with changes of a prior CABG. Left proximal humerus prosthesis. IMPRESSION: Moderate CHF versus volume overload pattern.
[2020-09-11 14:10] LABS: Absolute Lymphocytes (CBC) 1.8 K/uL (0.7-4.9); Basophils % 2.5 % (0-1.3); Hematocrit 41.8 % (39.6-49.0); MPV 9.6 fL (7.6-11.3)
[2020-09-11 14:12] LABS: Protime INR 1.21
[2020-09-11] MEDS ORDERED: FUROSEMIDE 100 MG/10 ML VIAL IV ONE (14:21)
[2020-09-11 14:46] LABS: ALT/SGPT 8 U/L (12-78); AST/SGOT 14 U/L (15-37); Albumin 3.1 g/dL (3.4-5.0); Alkaline Phosphatase 154 U/L (45-117); BUN Blood Urea Nitrogen 23 mg/dL (7-18); Bicarbonate 36 mmol/L (21-32); Bilirubin Direct 0.3 mg/dL (0-0.2); Bilirubin Total 0.8 mg/dL (0.2-1.0); Glucose Level 98 mg/dL (74-106); NT PRO-BNP > 175000 pg/mL (<125); Potassium 3.2 mmol/L (3.5-5.1); Sodium Level 142 mmol/L (136-145); Troponin (Emerg Dept Use Only) 0.02 ng/mL (0.0-0.045)
--- NOTE | 2020-09-11 15:02 | ER ---
Nurse's Notes [facility] Name: Richard Rodriguez Age: 65 yrs Sex: Male : 1955 Arrival Date: 09/11/2020 Time: 12:29 Bed 26 Private MD: Diagnosis: Pulmonary edema;End stage renal disease;Anasarca Presentation: 09/11 12:29 Chief complaint: EMS states: Pt c/o SOB x 2 days, worse at night when trying to lie ph down, room air 90%, improved to 98% on 2L NC, had dialysis today and completed tx, BP elevated at 200s systolic, did not take home meds this morning, swelling to bilateral ankles, CABG 1 month ago, denies chest pain. Coronavirus screen: Client denies travel out of the [place] in the last 14 days. shortness of breath, Client presents with at least one sign or symptom that may indicate coronavirus-19. Standard/surgical mask placed on the client. Provider contacted for isolation considerations. Ebola Screen: No symptoms or risks identified at this time. Initial Sepsis Screen: Does the patient meet any 2 criteria? No. Patient's initial sepsis screen is negative. Does the patient have a suspected source of infection? No. Patient's initial sepsis screen is negative. Risk Assessment: Do you want to hurt yourself or someone else? Patient reports no desire to harm self or others. Onset of symptoms was September 11, 2020. 12:29 Method Of Arrival: EMS: [facility] 12:29 Acuity: JERAD 2 ph Triage Assessment: 12:38 General: Appears in no apparent distress. comfortable, well groomed, Behavior is calm, ph cooperative, appropriate for age, Denies fever, feeling ill. Pain: Denies pain. Neuro: Level of Consciousness is awake, alert, obeys commands, Oriented to person, place, time, situation. Cardiovascular: Reports shortness of breath, Denies chest pain, Capillary refill < 3 seconds in bilateral fingers Patient's skin is warm and dry. Edema is 3+ to left ankle and right ankle Dialysis shunt: in the dorsal aspect of left forearm. Respiratory: Reports shortness of breath at rest Airway is patent Respiratory effort is even, unlabored, Respiratory pattern is regular, symmetrical, Denies cough, pain with respiration. GI: No signs and/or symptoms were reported involving the gastrointestinal system. Derm: Skin is intact, Skin is pink, warm \T\ dry. Musculoskeletal: Circulation, motion, and sensation intact. Range of motion: intact in all extremities. Historical: - Allergies: 12:38 No Known Allergies; ph - Home Meds: 12:38 losartan 50 mg oral tab 1 tab 2 times per day [Active]; ferrous sulfate 325 mg (65 mg ph iron) Oral TbEC every other day [Active]; rosuvastatin 5 mg Oral tab 1 tab once daily [Active]; allopurinol 100 mg oral tab 1 tab once daily [Active]; carvedilol 3.125 mg oral tab 2 times per day [Active]; Eliquis 2.5 mg Oral tab 1 tab 2 times per day [Active]; furosemide 40 mg Oral tab 1 tab 2 times per day [Active]; aspirin 81 mg Oral chew 1 tab once daily [Active]; - PMHx: 12:38 CVA; Diabetes - IDDM; Dialysis; Gout; Hyperlipidemia; Hypertension; Myocardial ph infarction; Sleep Apnea; - PSHx: 12:38 L knee repair; L shoulder replaced; double CABG; ph - Immunization history:: Adult Immunizations unknown. - Social history:: Smoking status: Patient denies any tobacco usage or history of. - Family history:: not pertinent. - Hospitalizations: : No recent hospitalization is reported. Screenin:32 Abuse screen: Denies threats or abuse. Denies injuries from another. Nutritional ph screening: No deficits noted. Tuberculosis screening: No symptoms or risk factors identified. Fall Risk None identified. Assessment: 12:47 General: SEE TRIAGE ASSESSMENT. ph 13:45 Reassessment: Patient appears in no apparent distress at this time. Patient and/or ph family updated on plan of care and expected duration. Pain level reassessed. Patient is alert, oriented x 3, equal unlabored respirations, skin warm/dry/pink. 14:55 Reassessment: Patient appears in no apparent distress at this time. Patient and/or ph family updated on plan of care and expected duration. Pain level reassessed. Patient is alert, oriented x 3, equal unlabored respirations, skin warm/dry/pink. Dr Pena at bedside to speak w/ pt. 15:50 Reassessment: Patient appears in no apparent distress at this time. Patient and/or ph family updated on plan of care and expected duration. Pain level reassessed. Patient is alert, oriented x 3, equal unlabored respirations, skin warm/dry/pink. 16:51 Reassessment: Patient appears in no apparent distress at this time. Patient and/or ph family updated on plan of care and expected duration. Pain level reassessed. Patient is alert, oriented x 3, equal unlabored respirations, skin warm/dry/pink. Awaiting COVID results and room assignment, pt resting quietly sitting up in recliner. 18:33 Reassessment: Patient appears in no apparent distress at this time. Patient and/or ph family updated on plan of care and expected duration. Pain level reassessed. Patient is alert, oriented x 3, equal unlabored respirations, skin warm/dry/pink. 20:07 Reassessment: Patient appears in no apparent distress at this time. Patient is alert, fu oriented x 3, equal unlabored respirations, skin warm/dry/pink. Sitting on recliner. Report called to the floor. Vital Signs: 12:29 BP 200 / 91; Pulse 77; Resp 18; Temp 97.8; Pulse Ox 100% on 2 lpm NC; Weight 92.99 kg; ph Height 5 ft. 10 in. (177.80 cm); Pain 0/10; 12:40 BP 194 / 89; Pulse 68; Resp 18; Pulse Ox 100% on 2 lpm NC; ph 13:25 Pulse 93; Resp 22; Temp 97.6(O); Pulse Ox 97% on R/A; mh5 14:14 BP 192 / 91; Pulse 71; Resp 24; Temp 97.8(O); Pulse Ox 100% on 2 lpm NC; mh5 14:53 BP 181 / 84; Pulse 74; Resp 18; Pulse Ox 100% on 2 lpm NC; ph 15:50 BP 173 / 82; Pulse 74; Resp 22; Pulse Ox 100% on 2 lpm NC; ph 16:50 BP 165 / 75; Pulse 76; Resp 24; Pulse Ox 99% on 2 lpm NC; ph 17:14 BP 156 / 76; Pulse 67; Resp 16; Pulse Ox 100% on 2 lpm NC; ph 18:31 BP 166 / 77; Pulse 72; Resp 18; Temp 97.8; Pulse Ox 100% on R/A; ph 19:30 BP 171 / 88; Pulse 72; Resp 20; Temp 97.8(O); Pulse Ox 100% on 2 lpm NC; Pain 0/10; fu 12:29 Body Mass Index 29.41 (92.99 kg, 177.80 cm) ph ED Course: 12:29 Patient arrived in ED. ph 12:32 Triage completed. ph 12:32 Patient has correct armband on for positive identification. Placed in gown. Bed in low 5 position. Call light in reach. Side rails up X2. Warm blanket given. engine monitor on. Pulse ox on. NIBP on. 12:33 Dong Pena MD is Attending Physician. rn 12:46 Lali Lagunas RN is Primary Nurse. ph 12:47 Arm band placed on Patient placed in an exam room, on a stretcher, on oxygen, on ph monitor worker, on pulse oximetry. 13:04 XRAY CXR (1 view) In Process Unspecified. EDMS 13:04 Missed attempt(s): 22 gauge antecubital area. [facility] 13:34 Initial lab(s) drawn, by ut, sent to lab. Inserted saline lock: 22 gauge in right jp3 forearm, using aseptic technique. Blood collected. 13:34 Oxygen administration via nasal cannula \T\ 2L/min. jp3 15:00 Tam Jacinto DO is Hospitalizing Provider. rn 16:31 COVID-19 Sent. 5 16:31 COVID swab sent to lab. [facility] 18:33 No provider procedures requiring assistance completed. Patient admitted, IV remains in ph place. Administered Medications: 14:15 Drug: Lasix 40 mg Route: IVP; Site: right forearm; ph 18:26 Follow up: Response: No adverse reaction ph 14:15 Drug: Lasix 40 mg Route: IVP; Site: right forearm; ph 18:26 Follow up: Response: No adverse reaction ph Outcome: 15:01 Decision to Hospitalize by Provider. rn 20:06 Admitted to Med/surg room 229, Report called to MARY Howard fu 20:06 Condition: stable 20:06 Instructed on the need for admit. 20:47 Patient left the ED. fu Signatures: Dispatcher [employer] EDMS Dong Pena MD MD rn Hall, Patricia, RN RN Pamela Jerez [facility] Catalino Fried RN RN fu Ortega Arana jp3 Corrections: (The following items were deleted from the chart) 17:16 17:14 BP 156 / 76; Pulse 43bpm; Resp 16bpm; Pulse Ox 100% 2 lpm Nasal Cannula; mh5 ph
--- NOTE | 2020-09-11 15:03 | EDPHYS ---
Physician Documentation [facility] Name: Richard Rodriguez Age: 65 yrs Sex: Male : 1955 Arrival Date: 09/11/2020 Time: 12:29 Bed 26 Private MD: ED Physician Dong Pena HPI: 09/11 13:24 This 65 yrs old Male presents to ER via EMS with complaints of Shortness Of rn Breath. 13:24 The patient has shortness of breath at rest, with light activity. rn 13:24 Onset: The symptoms/episode began/occurred 2 day(s) ago. Duration: The symptoms are rn intermittent. The patient's shortness of breath is aggravated by supine position, talking, walking. Severity of symptoms: At their worst the symptoms were moderate in the emergency department the symptoms are unchanged. The patient has experienced similar episodes in the past. Reports sob for last 2 days, no fever/cough, worse when laying supine, no trauma. No hemoptysis. No sick contacts. Reports makes urine and just completed dialysis today.. Historical: - Allergies: 12:38 No Known Allergies; ph - Home Meds: 12:38 losartan 50 mg oral tab 1 tab 2 times per day [Active]; ferrous sulfate 325 mg (65 mg ph iron) Oral TbEC every other day [Active]; rosuvastatin 5 mg Oral tab 1 tab once daily [Active]; allopurinol 100 mg oral tab 1 tab once daily [Active]; carvedilol 3.125 mg oral tab 2 times per day [Active]; Eliquis 2.5 mg Oral tab 1 tab 2 times per day [Active]; furosemide 40 mg Oral tab 1 tab 2 times per day [Active]; aspirin 81 mg Oral chew 1 tab once daily [Active]; - PMHx: 12:38 CVA; Diabetes - IDDM; Dialysis; Gout; Hyperlipidemia; Hypertension; Myocardial ph infarction; Sleep Apnea; - PSHx: 12:38 L knee repair; L shoulder replaced; double CABG; ph - Immunization history:: Adult Immunizations unknown. - Social history:: Smoking status: Patient denies any tobacco usage or history of. - Family history:: not pertinent. - Hospitalizations: : No recent hospitalization is reported. ROS: 13:24 Constitutional: Negative for fever, chills, and weight loss, Eyes: Negative for injury, rn pain, redness, and discharge, Neck: Negative for injury, pain, and swelling, Cardiovascular: Negative for chest pain, palpitations Respiratory: Negative for cough, wheezing, and pleuritic chest pain, Abdomen/GI: Negative for abdominal pain, nausea, vomiting, diarrhea, and constipation, Back: Negative for injury and pain, MS/Extremity: + swelling both legs Skin: Negative for injury, rash, and discoloration, Neuro: Negative for headache, weakness, numbness, tingling, and seizure. Exam: 13:24 Constitutional: This is a well developed, well nourished patient who is awake, alert, rn and in no acute distress. Head/Face: Normocephalic, atraumatic. Cardiovascular: Regular rate and rhythm. No pulse deficits. Respiratory: No increased work of breathing, no retractions or nasal flaring. Abdomen/GI: Soft, non-tender Skin: Warm, dry MS/ Extremity: Pulses equal, no cyanosis, 3+ pitting edema bilateral lower ext. Neuro: Awake and alert, GCS 15 Vital Signs: 12:29 BP 200 / 91; Pulse 77; Resp 18; Temp 97.8; Pulse Ox 100% on 2 lpm NC; Weight 92.99 kg; ph Height 5 ft. 10 in. (177.80 cm); Pain 0/10; 12:40 BP 194 / 89; Pulse 68; Resp 18; Pulse Ox 100% on 2 lpm NC; ph 13:25 Pulse 93; Resp 22; Temp 97.6(O); Pulse Ox 97% on R/A; mh5 14:14 BP 192 / 91; Pulse 71; Resp 24; Temp 97.8(O); Pulse Ox 100% on 2 lpm NC; mh5 14:53 BP 181 / 84; Pulse 74; Resp 18; Pulse Ox 100% on 2 lpm NC; ph 15:50 BP 173 / 82; Pulse 74; Resp 22; Pulse Ox 100% on 2 lpm NC; ph 16:50 BP 165 / 75; Pulse 76; Resp 24; Pulse Ox 99% on 2 lpm NC; ph 17:14 BP 156 / 76; Pulse 67; Resp 16; Pulse Ox 100% on 2 lpm NC; ph 18:31 BP 166 / 77; Pulse 72; Resp 18; Temp 97.8; Pulse Ox 100% on R/A; ph 19:30 BP 171 / 88; Pulse 72; Resp 20; Temp 97.8(O); Pulse Ox 100% on 2 lpm NC; Pain 0/10; fu 12:29 Body Mass Index 29.41 (92.99 kg, 177.80 cm) ph MDM: 12:33 Patient medically screened. rn 14:57 Differential diagnosis: Anemia CHF exacerbation, pneumonia, Pneumothorax pulmonary rn edema, ESRD, volume overload. Data reviewed: vital signs, nurses notes, lab test result(s), EKG, radiologic studies, plain films, and as a result, I will admit patient. Counseling: I had a detailed discussion with the patient and/or guardian regarding: the historical points, exam findings, and any diagnostic results supporting the discharge/admit diagnosis, lab results, radiology results, the need for further work-up and treatment in the hospital. Response to treatment: the patient's symptoms have mildly improved after treatment, and as a result, I will admit patient. Admission orders: after a detailed discussion of the patient's condition and case, the admit orders are written by me. ED course: Pt feels ok when sitting, but still unable to lay flat 2/2 dyspnea, states compliant with dialysis, taking lasix, but only makes a little urine. Also reports "taking more off in dialysis lately", and still falling behind. No infectious symptoms or findings on imaging. Will admit to Dr. Jacinto for further care. Sees Dr. Ventura. . 09/11 12:39 Order name: BMP; Complete Time: 14:51 09/11 12:39 Order name: CBC with Diff; Complete Time: 14:51 09/11 12:39 Order name: Hepatic Function; Complete Time: 14:51 09/11 12:39 Order name: NT PRO-BNP; Complete Time: 14:51 09/11 12:39 Order name: PT-INR; Complete Time: 14:51 09/11 12:39 Order name: Ptt, Activated; Complete Time: 14:51 09/11 12:39 Order name: XRAY CXR (1 view); Complete Time: 13:23 09/11 12:39 Order name: Troponin (emerg Dept Use Only); Complete Time: 14:51 09/11 12:39 Order name: EKG; Complete Time: 12:40 rn 09/11 15:49 Order name: COVID-19 sv 09/11 16:01 Order name: Social Service Consult EDAL 09/11 17:28 Order name: SARS-COV-2 RT PCR; Complete Time: 17:51 EDMS 09/11 12:39 Order name: Cardiac monitoring; Complete Time: 12:46 rn 09/11 12:39 Order name: EKG - Nurse/Tech; Complete Time: 13:04 rn 09/11 12:39 Order name: IV Saline Lock; Complete Time: 13:39 rn 09/11 12:39 Order name: Labs collected and sent; Complete Time: 13:39 rn 09/11 12:39 Order name: O2 Per Protocol; Complete Time: 12:46 rn 09/11 12:39 Order name: O2 Sat Monitoring; Complete Time: 12:46 rn Administered Medications: 14:15 Drug: Lasix 40 mg Route: IVP; Site: right forearm; ph 18:26 Follow up: Response: No adverse reaction ph 14:15 Drug: Lasix 40 mg Route: IVP; Site: right forearm; ph 18:26 Follow up: Response: No adverse reaction ph Disposition: 09/11/20 15:01 Hospitalization ordered by Tam Jacinto for Observation. Preliminary diagnosis are Pulmonary edema, End stage renal disease, Anasarca. - Bed requested for Telemetry/MedSurg (observation). - Status is Observation. fu - Condition is Stable. - Problem is an ongoing problem. - Symptoms have improved. Signatures: Dispatcher [employer] [facility] Denisa Duarte RN RN Dong Pena MD MD rn Hall, Patricia, RN RN Catalino Fried RN MARY fu Corrections: (The following items were deleted from the chart) 19:23 15:01 Hospitalization Ordered by Tam Jacinto DO for Observation. Preliminary butch diagnosis is Pulmonary edema; End stage renal disease; Anasarca. Bed requested for Telemetry/MedSurg (observation). Status is Observation. Condition is Stable. Problem is an ongoing problem. Symptoms have improved. rn 20:47 19:23 09/11/2020 15:01 Hospitalization Ordered by Tam Jacinto DO for Observation. fu Preliminary diagnosis is Pulmonary edema; End stage renal disease; Anasarca. Bed requested for Telemetry/MedSurg (observation). Status is Observation. Condition is Stable. Problem is an ongoing problem. Symptoms have improved. dw
--- NOTE | 2020-09-11 15:57 | P.HP ---
Certification for Inpatient Patient admitted to: Observation With expected LOS: <2 Midnights Patient will require the following post-hospital care: Other (Home oxygen) Practitioner: I am a practitioner with admitting privileges, knowledge of patient current condition, hospital course, and medical plan of care. Services: Services provided to patient in accordance with Admission requirements found in Title 42 Section 412.3 of the Code of Federal Regulations Patient History Date of Service: 09/11/20 Primary Care Provider: Dr. Olson; Nephrology-Dr. Mcneil; Cardiology-Dr. Linton Reason for admission: Shortness of breath, edema History of Present Illness: 65-year-old male with history of CAD/recent CABG x2 vessel July 2020, end-stage renal disease on hemodialysis, hypertension, paroxysmally atrial fibrillation on chronic anti coagulation therapy, and hyperlipidemia. Patient presented with increasing shortness of breath and edema to the lower extremities. Patient reports that since he had a CABG done x2 vessel in August 13, 2020, he has noted increasing edema and shortness of breath. He reports that his dry await had to be decreased over the past several weeks. He has been going to dialysis regularly. He does take Lasix as he still produces some urine. Patient not able to lie flat. Increased orthopnea. Patient denies any chest pain, fever, chills. He came to the ER for further evaluation. In the ER patient was evaluated. Vital signs stable. Patient required oxygen at 2 L. white count 8. Hemoglobin 13. Platelet count 62. INR 1.21. Sodium 142, potassium 3.2, BUN of 23, creatinine 4.6 with a GFR 13. Glucose 98. Chest x-ray revealed pulmonary edema. Patient was admitted for further evaluation and treatment. When I saw the patient ER, patient was sitting. Patient does not appear in any significant distress but tachypnea noted. Allergies No Known Allergies Allergy (Verified 07/29/20 13:33) Home medications list reviewed: Yes Home Medications: Apixaban [Eliquis *] 2.5 mg PO BID #60 tablet 04/08/16 Hydralazine [Apresoline*] 50 mg PO TID #90 tab 04/08/16 carvediloL [Coreg*] 6.25 mg PO BID 6AM 6PM #60 tab 04/08/16 allopurinoL [Zyloprim*] 100 mg PO DAILY 10/26/16 - Past Medical/Surgical History Diabetic: Yes -: Hypertension -: End-stage renal disease on hemodialysis, Wednesday, Wednesday and Wednesday -: History of CVA -: Paroxysmally atrial fibrillation -: Chronic anti coagulation therapy -: CAD with CABG x2 vessel -: Hyperlipidemia -: Gout -: Lithotripsy -: L knee -: L shoulder Psychosocial/ Personal History: He is . Has several children. - Family History Family History: Reviewed- Non-Contributory - Social History Smoking Status: Never smoker Alcohol use: No CD- Drugs: Yes Caffeine use: No Place of Residence: Home Review of Systems General: Weakness, As per HPI Eyes: Unremarkable ENT: Unremarkable Respiratory: Shortness of Breath, SOB with Excertion, As per HPI Cardiovascular: Paroxysmal Noc. Dyspnea, Edema, As per HPI Gastrointestinal: Unremarkable Genitourinary: Unremarkable Musculoskeletal: Pedal edema, As per HPI Integumentary: Unremarkable Neurological: Unremarkable Lymphatics: Unremarkable Physical Examination - Physical Exam General: Alert, In no apparent distress, Oriented x3, Cooperative HEENT: Atraumatic, Normocephalic, Mucous membr. moist/pink Neck: Supple Respiratory: Diminished (To the bases bilateral) Cardiovascular: Normal pulses, Regular rate/rhythm Gastrointestinal: Normal bowel sounds, Soft and benign, Non-distended, No rebound, No guarding Musculoskeletal: No warmth Integumentary: Tenderness/swelling (2+ pitting edema to the lower extremities up to the knees bilateral) Neurological: Normal speech, Normal strength at 5/5 x4 extr, Normal tone, Normal affect - Studies Laboratory Data (last 24 hrs) 09/11/20 13:32: PT 14.2 H, INR 1.21, APTT 26.3 09/11/20 13:32: WBC 8.0, Hgb 13.2 L, Hct 41.8, Plt Count 62 L 09/11/20 13:32: Sodium 142, Potassium 3.2 L, BUN 23 H, Creatinine 4.60 H, Glucose 98, Total Bilirubin 0.8, AST 14 L, ALT 8 L, Alkaline Phosphatase 154 H Assessment and Plan - Plan Impression: Edema to the lower extremity, dyspnea secondary to pulmonary edema with end- stage renal disease on hemodialysis complicated with acute on chronic diastolic CHF Hypertension Hyperlipidemia Recent CABG x2 vessel July 2020 Gout History of CVA Paroxysmally atrial fibrillation on chronic anti coagulation therapy Chronic thrombocytopenia Plan: Edema to the lower extremity, dyspnea secondary to pulmonary edema with end- stage renal disease on hemodialysis complicated with acute on chronic diastolic CHF: Patient will be admitted for further evaluation and treatment. Will place on IV Lasix 80 mg IV twice daily. Will place on fluid restriction at 1500 cc per day. Monitor input output. Monitor weight closely. Will check echocardiogram. Repeat chest x-ray tomorrow. Will monitor telemetry and cardiac enzymes. Will discuss case further with nephrology as the patient may require dialysis tonight or tomorrow. Patient did receive dialysis today. Review and restart home medication. Patient may require oxygen at discharge. Anticipate improvement over the next 48 hr. Hypertension: Restart home medication of losartan and carvedilol. Will monitor and adjust appropriately. Hyperlipidemia: Restart Crestor Recent CABG x2 vessel July 2020: Continue aspirin and home medication. May need to hold aspirin if platelet count less than 90. Gout: Continue allopurinol History of CVA: Continue aspirin Paroxysmally atrial fibrillation on chronic anti coagulation therapy: Continue Eliquis but may need to hold medication if platelet count less than 90. Patient will continue with carvedilol. Chronic thrombocytopenia: This appears chronic. Will discuss with nephrology. Discharge Plan: Home Plan to discharge in: 48 Hours - Advance Directives Does patient have a Living Will: Yes Does patient have a Durable POA for Healthcare: Yes - Code Status/Comfort Care Code Status Assessed: Yes (Patient is full code) Time Spent Managing Pts Care (In Minutes): 55
[2020-09-11] MEDS ORDERED: ACETAMINOPHEN 500 MG TAB PO PRN (20:09)
[2020-09-11] MEDS ORDERED: ONDANSETRON 4 MG/2 ML VIAL IV PRN (20:09)
[2020-09-11] MEDS: FUROSEMIDE 40 MG/4 ML VIAL IV SCH (21:40)
[2020-09-11] MEDS: ROSUVASTATIN 10 MG TAB PO SCH (21:41)
[2020-09-11] MEDS: LOSARTAN POTASSIUM 50 MG TABLET PO SCH (21:41)
[2020-09-11] MEDS: APIXABAN 2.5 MG TABLET PO SCH (21:41)
[2020-09-11] MEDS: carvediloL 6.25 MG TAB PO SCH (21:42)
[2020-09-11 22:32] LABS: CKMB Creatine Kinase MB 1.2 ng/mL (0.3-3.6); Creatine Phosphokinase 44 U/L (39-308); Troponin I < 0.02 ng/mL (0.0-0.045)
[2020-09-11 23:46] VITALS: BMI 29.2
[2020-09-12 05:05] LABS: Basophils % 3.4 % (0-1.3); Hematocrit 33.4 % (39.6-49.0); Lymphocytes % 28.3 % (15.3-44.8); MPV 10.8 fL (7.6-11.3); RBC Red Blood Cell Count 3.68 M/uL (4.33-5.43)
[2020-09-12 06:45] LABS: Urine Appearance TURBID; Urine Bilirubin NEGATIVE (NEG); Urine Blood 1+ (NEG); Urine Color YELLOW; Urine Glucose NEGATIVE (NEG); Urine Protein NEGATIVE (NEG); Urine Urobilinogen 0.2 mg/dL (0.2-1.0)
[2020-09-12 06:50] LABS: Albumin 2.4 g/dL (3.4-5.0); Bilirubin Total 0.4 mg/dL (0.2-1.0); Magnesium 2.6 mg/dL (1.8-2.4); Protein, Total 6.1 g/dL (6.4-8.2); Thyroid Stimulating Hormone 0.823 uIU/mL (0.360-3.740); Troponin I 0.02 ng/mL (0.0-0.045)
[2020-09-12 07:14] LABS: Urine Microscopic Reflex ORDER UMIC
[2020-09-12 07:41] LABS: Urine Bacteria <20 /HPF (NONE SEEN)
[2020-09-12] MEDS: LOSARTAN POTASSIUM 50 MG TABLET PO SCH ×2 (09:00→14:42)
[2020-09-12] MEDS: FUROSEMIDE 40 MG/4 ML VIAL IV SCH ×2 (09:00→17:00)
[2020-09-12 09:29] LABS: Blood Morphology Comment NOT SEEN (NOT SEEN); Platelet Estimate DECR; White Blood Cell Scan OK (OK)
--- NOTE | 2020-09-12 09:45 | RAD REPORT ---
EXAM DESCRIPTION: RAD - Chest Pa And Lat (2 Views) - 09/12/2020 9:11 am CLINICAL HISTORY: CHF COMPARISON: Portable September 11 TECHNIQUE: Frontal and lateral views of the chest were obtained. FINDINGS: The lungs are underinflated. Large right pleural effusion is present filling approximately 50% of the right hemithorax. A smaller but still significant left-sided pleural effusion is seen. Up per lung higgins are clear mass or infiltrate. Upper lobe vasculature within normal limits. Heart is o bscured by the pleural effusions. Lung base atelectasis is present in the fluid. No pneumothorax. N o acute bony finding noted. No aortic abnormality. IMPRESSION: Large right-side and moderate left-side pleural effusions again noted and stable. Vascular engorgement has resolved. Cardiac silhouette is too obscured by the pleural fluid to allow a ssessment.
[2020-09-12] MEDS ORDERED: EPOETIN 4,000 UNIT/ML VIAL IV SCH (12:30)
--- NOTE | 2020-09-12 14:31 | CON ---
Date of Consultation: 09/12/2020 Reason For Consultation: Over volume, end-stage renal disease, fluid management. History Of Present Illness: This is a pleasant 65-year-old gentleman, well known to me from dialysis unit with significant past medical history of end- stage renal disease on hemodialysis Wednesday, Wednesday, Wednesday; hypertension, diabetes complicated with neuropathy, nephropathy, coronary artery disease status post CABG back in July 2020, hyperlipidemia, atrial fibrillation. The patient yesterday on dialysis, developed low blood pressure, labor to breath, for that reason dialysis was cut and the patient was send to the hospital. Upon arrival to the hospital, found to be hypoxemic, over volume. The patient denied any chest pain, any palpitation. We took the patient for dialysis today. We challenging the patient, will goaling for around 3.5-4 L. Past Medical History: 1. Hypertension. 2. End-stage renal disease, on hemodialysis Wednesday, Wednesday, Wednesday. 3. CVA. 4. Atrial fibrillation. 5. Coronary artery disease status post CABG back in July 2020, complicated with congestive heart failure. 6. Gout. 7. Nephrolithiasis, status post lithotripsy. Past Surgical History: Include. 1. CABG. 2. AV fistula. 3. Knee surgery. 4. Shoulder surgery. 5. Lithotripsy. Family History: Positive for diabetes and hypertension. Social History: Denies smoking. Deny drugs abuse. Review of Systems: Head and Neck: No red eye. No ear pain. GI: No nausea, no vomiting. : No polyuria, no dysuria, no hematuria. 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 Respiratory: Has shortness of breath. Cardiovascular: No chest pain. Endocrine: No polydipsia. Skin: No rash. Neuro: Has neuropathy. Musculoskeletal: Generalized fatigue. Physical Examination: Vital Signs: When I saw the patient blood pressure 178/86, pulse of 77, afebrile. Chest: Crackles. Bilateral decreased air entry on the right base. Heart: S1, S2. Systolic murmur. Abdomen: Soft, nontender. Extremities: +2 edema. Neurological: Alert, oriented x3, no focal. Laboratory Data: WBC 7.1, H and H 10.6/33.4. Sodium 143, potassium 4, bicarb 32, BUN 29, creatinine 5.6, calcium 8.7, magnesium 2.6. Current Medications: The patient on include: 1. Eliquis. 2. Carvedilol 6.25 b.i.d. 3. Losartan 50. 4. Pravastatin. 5. Lasix 80 b.i.d. 6. Allopurinol. Assessment And Plan: 1. End-stage renal disease, over volume. I am going to go ahead and do another session of dialysis tomorrow as sequential for 3 hour trying to establish better volume control for the patient and we will monitor the patient today. We can goal up to 4 L for the patient. 2. Hypertension, controlled, optimal. We will utilize blood pressure for more ultra filtration for the patient. 3. I going to go ahead and decrease his losartan to 50 mg daily to establish better blood pressure for the dialysis tomorrow and we will follow up. 4. Anemia of chronic kidney disease. Given the current artery disease, I going to start the patient on the Retacrit to establish better hemoglobin for the patient. 5. Secondary hyperparathyroidism. We will follow up phosphor level. 6. Coronary artery disease with congestive heart failure as above. We will send for TSH. 7. Diabetes as by primary. time spend discussing with the patient face to face , placing order , discusse with the patient and other prepared foods team leader including hospitalist 75 min. AL Voice ID: [id number] Report ID: [id number] CARMEN
[2020-09-12] MEDS: carvediloL 6.25 MG TAB PO SCH ×2 (14:40→21:59)
[2020-09-12] MEDS: ASPIRIN EC 81 MG TAB PO SCH (14:41)
[2020-09-12] MEDS: CYANOCOBALAMIN 1,000 MCG TAB PO SCH (14:41)
[2020-09-12] MEDS: APIXABAN 2.5 MG TABLET PO SCH ×2 (14:41→21:00)
[2020-09-12] MEDS: FERROUS SULFATE 325 MG TAB PO SCH (14:41)
[2020-09-12] MEDS: allopurinoL 100 MG TAB PO SCH (14:42)
--- NOTE | 2020-09-12 17:37 | P.PN ---
Subjective Date of Service: 09/12/20 Primary Care Provider: Dr. Olson; Nephrology-Dr. Mcneil; Cardiology-Dr. Linton Chief Complaint: Shortness of breath, edema Subjective: Improving Physical Examination - Vital Signs Temperature: 97.9 F Blood Pressure: 149/70 Pulse: 74 Respirations: 18 Pulse Ox (%): 95 - Physical Exam General: Alert, Cooperative HEENT: Atraumatic Neck: Supple Respiratory: Crackles/rales (Bilateral) Cardiovascular: Normal pulses Gastrointestinal: Normal bowel sounds Integumentary: Tenderness/swelling (Edema to the lower extremities) Neurological: Normal speech, Normal strength at 5/5 x4 extr, Normal tone, Normal affect - Studies Laboratory Data (last 24 hrs) 09/12/20 04:18: Sodium 143, Potassium 4.0, BUN 29 H, Creatinine 5.66 H* D, Glucose 81, Magnesium 2.6 H, Total Bilirubin 0.4, AST 19, ALT 8 L, Alkaline Phosphatase 116, Troponin I 0.02, Triglycerides 62, Cholesterol 95, HDL Cholesterol 48, Cholesterol/HDL Ratio 1.98 09/12/20 04:18: WBC 7.1, Hgb 10.6 L D, Hct 33.4 L D, Plt Count 77 L D 09/12/20 04:18: Troponin I Cancelled 09/11/20 21:54: Troponin I < 0.02 Medications List Reviewed: Yes Assessment & Plan Discharge Plan: Home Physician Review Additional Text: Impression: Edema to the lower extremity, dyspnea secondary to pulmonary edema with end- stage renal disease on hemodialysis complicated with acute on chronic diastolic CHF / bilateral pleural effusion Hypertension Hyperlipidemia Recent CABG x2 vessel July 2020 Gout History of CVA Paroxysmally atrial fibrillation on chronic anti coagulation therapy Chronic thrombocytopenia Plan: Edema to the lower extremity, dyspnea secondary to pulmonary edema with end- stage renal disease on hemodialysis complicated with acute on chronic diastolic CHF/ bilateral pleural effusion: Continue diuresis. Continued daily dialysis. Obtain echocardiogram. Chest x-ray shows some improvement. Case discussed with nephrology. Nephrology to discuss further with pulmonology about possible thoracentesis. Reassess tomorrow after dialysis peer Hypertension: Restart home medication of losartan and carvedilol. Will monitor and adjust appropriately. Hyperlipidemia: Restart Crestor Recent CABG x2 vessel July 2020: Continue aspirin and home medication. May need to hold aspirin if platelet count less than 90. Gout: Continue allopurinol History of CVA: Continue aspirin Paroxysmally atrial fibrillation on chronic anti coagulation therapy: Continue Eliquis but may need to hold medication if platelet count less than 90. Patient will continue with carvedilol. Chronic thrombocytopenia: This appears chronic. Will discuss with nephrology. Time Spent Managing Pts Care (In Minutes): 55
[2020-09-12] MEDS: ROSUVASTATIN 10 MG TAB PO SCH (21:59)
[2020-09-13 05:56] LABS: Albumin 2.3 g/dL (3.4-5.0); Bilirubin Total 0.4 mg/dL (0.2-1.0); Magnesium 2.4 mg/dL (1.8-2.4); Phosphorus 4.1 mg/dL (2.5-4.9); Potassium 3.6 mmol/L (3.5-5.1); Thyroid Stimulating Hormone 0.737 uIU/mL (0.360-3.740)
[2020-09-13 06:00] LABS: Absolute Lymphocytes (CBC) 1.9 K/uL (0.7-4.9); Hematocrit 30.7 % (39.6-49.0); Lymphocytes % 26.7 % (15.3-44.8); MPV 10.4 fL (7.6-11.3); RBC Red Blood Cell Count 3.39 M/uL (4.33-5.43)
[2020-09-13] MEDS: CYANOCOBALAMIN 1,000 MCG TAB PO SCH (09:00)
[2020-09-13] MEDS: allopurinoL 100 MG TAB PO SCH (09:00)
[2020-09-13] MEDS: APIXABAN 2.5 MG TABLET PO SCH ×2 (09:00→21:00)
[2020-09-13] MEDS: ASPIRIN EC 81 MG TAB PO SCH (09:00)
--- NOTE | 2020-09-13 09:11 | ECHO ---
HEIGHT: 5 ft 1 in WEIGHT: 199 lb 0 oz DATE OF STUDY: 09/12/[address]: Tam Jacinto DO 2-DIMENSIONAL: YES M.MODE: YES DOPPLER: YES COLOR FLOW: YES TDS: NO PORTABLE: NO DEFINITY: NO BUBBLE STUDY: NO DIAGNOSIS: ACUTE, CHRONIC CONGESTIVE HEART FAILURE, PULMONARY EDEMA, STATUS POST CABG CARDIAC HISTORY: CATHERIZATION: YES SURGERY: YES PROSTHETIC VALVE: NO PACEMAKER: NO MEASUREMENTS (cm) DIASTOLIC (NORMALS) SYSTOLIC (NORMALS) IVSd 1.3 (0.6-1.2) LA Diam 3.5 (1.9-4.0) LVEF 40-45% LVIDd 4.9 (3.5-5.7) LVIDs 3.5 (2.0-3.5) %FS 28% LVPWd 1.3 (0.6-1.2) Ao Diam 3.7 (2.0-3.7) 2 DIMENSIONAL ASSESSMENT: RIGHT ATRIUM: NORMAL LEFT ATRIUM: NORMAL RIGHT VENTRICLE: NORMAL LEFT VENTRICLE: MIDLY DEPRESSED TRICUSPID VALVE: NORMAL MITRAL VALVE: PULMONIC VALVE: NORMAL AORTIC VALVE: NORMAL PERICARDIAL EFFUSION: NONE AORTIC ROOT: NORMAL LEFT VENTRICULAR WALL MOTION: MILD GLOBAL HYPOKINESIS. DOPPLER/COLOR FLOW: SEE BELOW. COMMENTS: MILDLY DEPRESSED LEFT VENTRICULAR EJECTION FRACTION 40-45%. MILD GLOBAL HYPOKINESIS. MILD MITRAL REGURGITATION. TECHNOLOGIST: JOSSELIN
--- NOTE | 2020-09-13 11:00 | P.PN ---
Subjective Date of Service: 09/14/20 Primary Care Provider: Dr. Olson; Nephrology-Dr. Mcneil; Cardiology-Dr. Linton Chief Complaint: Shortness of breath, edema Subjective Pt with ESRd , admitted for Low BP , pt with fluid overload Today seen and examined during HD denied SOB Bp improving can be discharged from nephrology point of view Review of Systems: Head and Neck: No red eye. No ear pain. GI: No nausea, no vomiting. : No polyuria, no dysuria, no hematuria. 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 Respiratory: No shortness of breath. Cardiovascular: No chest pain. Endocrine: No polydipsia. Skin: No rash. Musculoskeletal: denied pain Physical exam general: AAOX3, NAD , Neck; Supple, No elevated JVD hear: RRR, normal S1,2 no murmur or rub Chest: CTAB, no rlaes or wheezes Abdomen: Soft , Nt Extremities Lt AKA, rt BKA with dressing A/p End-stage renal disease on HD MWF HD as per schedule renal dose meds Fluid overload had hd yesterday and today with ~7.0 liters fluid removal Anemia of chronic disease Cont epogen HTN BP improved with HD cont current meds Total time spent 35min Physical Examination - Vital Signs Temperature: 98.4 F Blood Pressure: 190/90 Pulse: 86 Respirations: 20 Pulse Ox (%): 95 - Studies Medications List Reviewed: Yes
[2020-09-13] MEDS: LOSARTAN POTASSIUM 50 MG TABLET PO SCH (12:48)
[2020-09-13] MEDS: carvediloL 6.25 MG TAB PO SCH ×2 (12:48→21:17)
[2020-09-13] MEDS: FUROSEMIDE 40 MG/4 ML VIAL IV SCH ×2 (12:49→16:38)
--- NOTE | 2020-09-13 13:13 | P.DS ---
Admission Date: 09/12/20 Discharge Date: 09/13/20 Primary Care Provider: Dr. Olson; Nephrology-Dr. Mcneil; Cardiology-Dr. Linton Disposition: ROUTINE DISCHARGE Discharge Condition: GOOD Reason for Admission: Shortness of breath, edema Consultations: Nephrology-Dr. Mcneil Procedures: CXR: FINDINGS: Portable technique limits examination quality. Moderate bilateral pleural effusions are noted. Moderate pulmonary edema is seen. The heart is enlarged with changes of a prior CABG. Left proximal humerus prosthesis. IMPRESSION: Moderate CHF versus volume overload pattern. ECHO: EF 40% 2 DIMENSIONAL ASSESSMENT: RIGHT ATRIUM: NORMAL LEFT ATRIUM: NORMAL RIGHT VENTRICLE: NORMAL LEFT VENTRICLE: MIDLY DEPRESSED TRICUSPID VALVE: NORMAL MITRAL VALVE: PULMONIC VALVE: NORMAL AORTIC VALVE: NORMAL PERICARDIAL EFFUSION: NONE AORTIC ROOT: NORMAL LEFT VENTRICULAR WALL MOTION: MILD GLOBAL HYPOKINESIS. DOPPLER/COLOR FLOW: SEE BELOW. COMMENTS: MILDLY DEPRESSED LEFT VENTRICULAR EJECTION FRACTION 40-45%. MILD GLOBAL HYPOKINESIS. MILD MITRAL REGURGITATION. Medical Problem List: Edema to the lower extremity, dyspnea secondary to pulmonary edema with end- stage renal disease on hemodialysis complicated with acute on chronic systolic CHF/bilateral pleural effusion Hypertension Hyperlipidemia Recent CABG x2 vessel July 2020 Gout History of CVA Paroxysmally atrial fibrillation on chronic anti coagulation therapy Chronic thrombocytopenia Brief History of Present Illness: 65-year-old male with history of CAD/recent CABG x2 vessel July 2020, end-stage renal disease on hemodialysis, hypertension, paroxysmally atrial fibrillation on chronic anti coagulation therapy, and hyperlipidemia. Patient presented with increasing shortness of breath and edema to the lower extremities. Patient reports that since he had a CABG done x2 vessel in August 13, 2020, he has noted increasing edema and shortness of breath. He reports that his dry await had to be decreased over the past several weeks. He has been going to dialysis regularly. He does take Lasix as he still produces some urine. Patient not able to lie flat. Increased orthopnea. Patient denies any chest pain, fever, chills. He came to the ER for further evaluation. In the ER patient was evaluated. Vital signs stable. Patient required oxygen at 2 L. white count 8. Hemoglobin 13. Platelet count 62. INR 1.21. Sodium 142, potassium 3.2, BUN of 23, creatinine 4.6 with a GFR 13. Glucose 98. Chest x-ray revealed pulmonary edema. Patient was admitted for further evaluation and treatment. When I saw the patient ER, patient was sitting. Patient does not appear in any significant distress but tachypnea noted. Hospital Course: Patient presented with Edema to the lower extremity and shortness of breath. This was secondary to pulmonary edema complicated with end-stage renal disease on hemodialysis and acute on chronic systolic CHF. Since his CABG in July 2020 nephrology has tried to bring down his dry await. Due to some low blood pressures at times not enough fluid has been taken off. The patient required hospitalization for continue dialysis. During dialysis a total of 7 L was able to be removed. His breathing improved. Patient without significant shortness of breath. Edema also improved. At discharge the patient will continue with hemodialysis every Wednesday, Wednesday and Wednesday. Nephrology will work to decrease his try await over time. At discharge his Lasix will be increased to 120 mg 1 pill twice daily. The patient will also continue with a 1500 cc per day fluid restriction and low-salt diet. Recommend to monitor his weight daily. If his weight increases by more than 5 lb he is to contact his nephrologists for further recommendation. Recommend to recheck lab-BMP in 1 week. Recommend follow up with hemodialysis on Wednesday. Recommend follow up with nephrology next week to further monitor and adjust. Prior to discharge patient will be evaluated to see if the patient will require home oxygen. Patient with hypertension. Blood pressure stable. At discharge patient will continue with carvedilol 3.125 mg 1 pill twice daily and losartan 50 mg 1 pill twice daily. Recommend to maintain blood pressure less than 130/80. Further adjustment may be required. May need to hold medication if blood pressure systolic less than 110. Recommend follow up with his PCP or nephrology to further monitor and adjust. Patient with hyperlipidemia. At discharge patient will continue with Crestor 5 mg daily. As mentioned above patient with recent CABG x2 vessel July 2020. This appears stable. At discharge patient will continue with aspirin 81 mg daily. Patient also with history of paroxysmally atrial fibrillation on chronic anti coagulation therapy. Patient will continue with Eliquis 2.5 mg 1 pill twice daily. Patient will continue with carvedilol 3.125 mg 1 pill twice daily for rate control. Recommend follow up with cardiology as directed. Patient with gout. At discharge patient will continue with allopurinol 100 mg daily. Patient with anemia of chronic disease continue with iron supplementation, B12 supplementation and multi vitamin daily. Patient with chronic thrombocytopenia. Recommend to recheck lab-CBC in 1-2 weeks to monitor this closely. Consider Hematology evaluation as an outpatient to further address. Vital Signs/Physical Exam: Temp Pulse Resp BP Pulse Ox 98.4 F 86 20 190/90 H 95 09/13/20 11:00 09/13/20 12:49 09/13/20 11:00 09/13/20 12:49 09/13/20 11:00 General: Alert, In no apparent distress, Cooperative HEENT: Atraumatic Neck: Supple Respiratory: Crackles/rales (To the bases bilateral but improved) Cardiovascular: Normal pulses, Regular rate/rhythm Gastrointestinal: No masses, No rebound, No guarding Integumentary: Tenderness/swelling (Edema to the lower extremities improved) Neurological: Normal speech, Normal strength at 5/5 x4 extr, Normal tone, Normal affect Laboratory Data at Discharge: WBC 7.1 K/uL (4.3-10.9) 09/13/20 05:17 Hgb 9.8 g/dL (13.6-17.9) L 09/13/20 05:17 Hct 30.7 % (39.6-49.0) L 09/13/20 05:17 Plt Count 65 K/uL (152-406) L 09/13/20 05:17 PT 14.2 SECONDS (9.5-12.5) H 09/11/20 13:32 INR 1.21 09/11/20 13:32 APTT 26.3 SECONDS (24.3-36.9) 09/11/20 13:32 Sodium 142 mmol/L (136-145) 09/13/20 05:17 Potassium 3.6 mmol/L (3.5-5.1) 09/13/20 05:17 BUN 27 mg/dL (7-18) H 09/13/20 05:17 Creatinine 4.89 mg/dL (0.55-1.3) H 09/13/20 05:17 Glucose 82 mg/dL (74-106) 09/13/20 05:17 Phosphorus 4.1 mg/dL (2.5-4.9) 09/13/20 05:17 Magnesium 2.4 mg/dL (1.8-2.4) 09/13/20 05:17 Total Bilirubin 0.4 mg/dL (0.2-1.0) 09/13/20 05:17 AST 15 U/L (15-37) 09/13/20 05:17 ALT 8 U/L (12-78) L 09/13/20 05:17 Alkaline Phosphatase 115 U/L (45-117) 09/13/20 05:17 Troponin I 0.02 ng/mL (0.0-0.045) 09/12/20 04:18 Troponin I Cancelled 09/12/20 04:18 Triglycerides 62 mg/dL (<150) 09/12/20 04:18 Cholesterol 95 mg/dL (<200) 09/12/20 04:18 HDL Cholesterol 48 mg/dL (40-60) 09/12/20 04:18 Cholesterol/HDL Ratio 1.98 09/12/20 04:18 Home Medications: Allopurinol 100 mg PO DAILY 09/11/20 Apixaban [Eliquis *] 1 tab PO BID 09/11/20 Aspirin Chewable [Aspirin Chewable*] 81 mg PO DAILY 09/11/20 Carvedilol [Coreg] 1 tab PO BID 09/11/20 Cyanocobalamin (Vitamin B-12) [Cyanocobalamin Injection] 1 vial IM ONCE 09/11/20 Ferrous Sulfate [Ferrous Sulfate*] 1 tab PO DAILY 09/11/20 Losartan Potassium [Cozaar*] 50 mg PO BID 09/11/20 Multivitamin 1 tab PO DAILY 09/11/20 Rosuvastatin [Crestor*] 5 mg PO DAILY 09/11/20 Furosemide [Lasix] 120 mg PO BIDL #160 tab 09/13/20 New Medications: Furosemide [Lasix] 120 mg PO BIDL #160 tab Patient Discharge Instructions: Follow up with PCP in 1 week to follow up this hospitalization. Patient presented with Edema to the lower extremity and shortness of breath. This was secondary to pulmonary edema complicated with end-stage renal disease on hemodialysis and acute on chronic systolic CHF. Since his CABG in July 2020 nephrology has tried to bring down his dry await. Due to some low blood pressures at times not enough fluid has been taken off. The patient required hospitalization for continue dialysis. During dialysis a total of 7 L was able to be removed. His breathing improved. Patient without significant shortness of breath. Edema also improved. At discharge the patient will continue with hemodialysis every [place], Wednesday and Wednesday. Nephrology will work to decrease his try await over time. At discharge his Lasix will be increased to 120 mg 1 pill twice daily. The patient will also continue with a 1500 cc per day fluid restriction and low-salt diet. Recommend to monitor his weight daily. If his weight increases by more than 5 lb he is to contact his nephrologists for further recommendation. Recommend to recheck lab-BMP in 1 week. Recommend follow up with hemodialysis on Wednesday. Recommend follow up with nephrology next week to further monitor and adjust. Prior to discharge patient will be evaluated to see if the patient will require home oxygen. Patient with hypertension. Blood pressure stable. At discharge patient will continue with carvedilol 3.125 mg 1 pill twice daily and losartan 50 mg 1 pill twice daily. Recommend to maintain blood pressure less than 130/80. Further adjustment may be required. May need to hold medication if blood pressure systolic less than 110. Recommend follow up with his PCP or nephrology to further monitor and adjust. Patient with hyperlipidemia. At discharge patient will continue with Crestor 5 mg daily. As mentioned above patient with recent CABG x2 vessel July 2020. This appears stable. At discharge patient will continue with aspirin 81 mg daily. Patient also with history of paroxysmally atrial fibrillation on chronic anti coagulation therapy. Patient will continue with Eliquis 2.5 mg 1 pill twice daily. Patient will continue with carvedilol 3.125 mg 1 pill twice daily for rate control. Recommend follow up with cardiology as directed. Patient with gout. At discharge patient will continue with allopurinol 100 mg daily. Patient with anemia of chronic disease continue with iron supplementation, B12 s upplementation and multi vitamin daily. Patient with chronic thrombocytopenia. Recommend to recheck lab-CBC in 1-2 weeks to monitor this closely. Consider Hematology evaluation as an outpatient to further address. Diet: Renal Activity: Ad jigna Followup: NONE,NONE [Primary Care Provider] - Time spent managing pt's care (in minutes): 55
[2020-09-13] MEDS: ROSUVASTATIN 10 MG TAB PO SCH (21:16)
[2020-09-14 06:01] LABS: Absolute Lymphocytes (CBC) 2.5 K/uL (0.7-4.9); Basophils % 2.4 % (0-1.3); Hematocrit 31.7 % (39.6-49.0); Lymphocytes % 32.2 % (15.3-44.8); RBC Red Blood Cell Count 3.56 M/uL (4.33-5.43)
[2020-09-14 06:18] LABS: Albumin 2.4 g/dL (3.4-5.0); Bilirubin Total 0.4 mg/dL (0.2-1.0); Magnesium 2.6 mg/dL (1.8-2.4); Phosphorus 4.3 mg/dL (2.5-4.9); Potassium 3.4 mmol/L (3.5-5.1); Protein, Total 6.4 g/dL (6.4-8.2)
[2020-09-14] MEDS: ASPIRIN EC 81 MG TAB PO SCH (07:04)
[2020-09-14] MEDS: APIXABAN 2.5 MG TABLET PO SCH (07:05)
--- NOTE | 2020-09-14 08:37 | P.PN ---
Subjective Date of Service: 09/14/20 Primary Care Provider: Dr. Olson; Nephrology-Dr. Mcneil; Cardiology-Dr. Linton Chief Complaint: Shortness of breath, edema Subjective: No new changes, No C/O voiced (seen , feel fine -states hoemn dialysis for 3.5 hrs - home 02 arrnaged and in room tiolerating po well) Physical Examination - Vital Signs Temperature: 98.0 F Blood Pressure: 158/74 Pulse: 50 Respirations: 18 Pulse Ox (%): 94 - Physical Exam General: Alert, In no apparent distress, Oriented x3 HEENT: Atraumatic, Normocephalic Neck: Supple, JVD not distended Respiratory: Normal air movement, Diminished Cardiovascular: Regular rate/rhythm, Normal S1 S2, Edema Capillary refill: <2 Seconds Gastrointestinal: Normal bowel sounds, Soft and benign, Non-distended Musculoskeletal: No clubbing, No swelling Integumentary: No rashes, No breakdown, No significant lesion - Studies Medications List Reviewed: Yes Assessment & Plan Physician Review: Patient Assessed, Agree with Above Assessment and Plan Physician Review Additional Text: Impression: Edema to the lower extremity, dyspnea secondary to pulmonary edema with end- stage renal disease on hemodialysis complicated with acute on chronic diastolic CHF / bilateral pleural effusion Hypertension Hyperlipidemia Recent CABG x2 vessel July 2020 Gout History of CVA Paroxysmally atrial fibrillation on chronic anti coagulation therapy Chronic thrombocytopenia Plan: - improving - can dc home today - continue home 02 for now -will leave it to nephrology to adjust home dialysis duration to allow more UF since still clinical fluid overload although improving dc home today 09/13/20 Edema to the lower extremity, dyspnea secondary to pulmonary edema with end- stage renal disease on hemodialysis complicated with acute on chronic diastolic CHF/ bilateral pleural effusion: Continue diuresis. Continued daily dialysis. Obtain echocardiogram. Chest x-ray shows some improvement. Case discussed with nephrology. Nephrology to discuss further with pulmonology about possible thoracentesis. Reassess tomorrow after dialysis peer Hypertension: Restart home medication of losartan and carvedilol. Will monitor and adjust appropriately. Hyperlipidemia: Restart Crestor Recent CABG x2 vessel July 2020: Continue aspirin and home medication. May need to hold aspirin if platelet count less than 90. Gout: Continue allopurinol History of CVA: Continue aspirin Paroxysmally atrial fibrillation on chronic anti coagulation therapy: Continue Eliquis but may need to hold medication if platelet count less than 90. Patient will continue with carvedilol. Chronic thrombocytopenia: This appears chronic. Will discuss with nephrology.
[2020-09-14 08:46] LABS: Blood Morphology Comment NOT SEEN (NOT SEEN); Platelet Estimate DECR
[2020-09-14] MEDS: allopurinoL 100 MG TAB PO SCH (09:00)
[2020-09-14 10:06] VITALS: O2SAT 91
[2020-09-14] MEDS: FUROSEMIDE 40 MG/4 ML VIAL IV SCH (10:24)
[2020-09-14] MEDS: LOSARTAN POTASSIUM 50 MG TABLET PO SCH (10:25)
[2020-09-14] MEDS: CYANOCOBALAMIN 1,000 MCG TAB PO SCH (10:25)
[2020-09-14] MEDS: FERROUS SULFATE 325 MG TAB PO SCH (10:25)
[2020-09-14] MEDS: carvediloL 6.25 MG TAB PO SCH (10:25)
[2020-09-14 16:16] VITALS: BP 190/90; TEMP 98.4
--- NOTE | 2020-11-08 12:51 | RAD REPORT ---
EXAM DESCRIPTION: RAD - Chest Lateral Decubitus - 09/19/2020 11:31 am CLINICAL HISTORY: Pleural effusion FINDINGS: The exam is being submitted to me today for interpretation. A mostly layering large right pleural effusion is present. A layering small pleural effusion is present
== END 2020-09-14 11:13 | disposition home or self-care (01) | DRG 291 ==
LOC: ER 12:21 → ERHOLD 16:20 → 2ND 19:59 → OBSVTOIN 09-12 11:53
PROVIDERS: ADMIT Family Medicine; ATTEND Internal Medicine
PROC: 5A1D70Z Performance of Urinary Filtration, Intermittent, Less than 6 Hours Per Day (ICD-10-PCS; principal; 2020-09-12)
DX: I13.2 Hypertensive heart and chronic kidney disease with heart failure and with stage 5 chronic kidney disease, or end stage renal disease (principal); N18.6 End stage renal disease; I50.33 Acute on chronic diastolic (congestive) heart failure; N25.81 Secondary hyperparathyroidism of renal origin; E11.22 Type 2 diabetes mellitus with diabetic chronic kidney disease; E11.40 Type 2 diabetes mellitus with diabetic neuropathy, unspecified; I25.10 Atherosclerotic heart disease of native coronary artery without angina pectoris; M10.9 Gout, unspecified; D69.6 Thrombocytopenia, unspecified; D63.1 Anemia in chronic kidney disease; I48.0 Paroxysmal atrial fibrillation; E78.5 Hyperlipidemia, unspecified; I25.2 Old myocardial infarction; Z79.01 Long term (current) use of anticoagulants; Z79.82 Long term (current) use of aspirin; Z79.899 Other long term (current) drug therapy; Z86.73 Personal history of transient ischemic attack (TIA), and cerebral infarction without residual deficits; Z99.2 Dependence on renal dialysis; Z96.612 Presence of left artificial shoulder joint; Z95.1 Presence of aortocoronary bypass graft; Z20.822 Contact with and (suspected) exposure to COVID-19
CPT/HCPCS: 36415; 71045; 71046; 80048; 80053; 80061; 80069; 80076; 81003; 81015; 82550; 82553; 83735; 83880; 84439; 84443; 84484; 85025; 85610; 85730; 90935; 93005; 93306; 96374; 99285; G0378; J1644; J1940; Q5105; U0003

== ENCOUNTER 2021-02-12 07:42 | Day surgery (SDC) | payer OTHER ==
[2021-02-12 07:54] LABS: Hematocrit 20.8 % (39.6-49.0)
[2021-02-12] MEDS ORDERED: NA CHLORIDE 0.9% 250 ML ONE ×2 (08:27→11:40)
[2021-02-12 10:01] VITALS: BMI 27.2
[2021-02-12] MEDS ORDERED: FUROSEMIDE 40 MG/4 ML VIAL ONE (13:23)
[2021-02-12 14:29] VITALS: TEMP 97.7
[2021-02-12 15:27] VITALS: BP 167/69
[2021-02-12 15:29] VITALS: O2SAT 97
[2021-02-12 15:52] LABS: Hematocrit 25.3 % (39.6-49.0)
[2021-02-12] MEDS ORDERED: cloNIDine HCL 0.1 MG TAB PO ONE (16:00)
== END 2021-02-12 15:24 | disposition home or self-care (01) ==
LOC: DS 07:42
PROVIDERS: ATTEND Internal Medicine
DX: N18.9 Chronic kidney disease, unspecified (principal); D63.1 Anemia in chronic kidney disease
CPT/HCPCS: 36415; 86900; 86850; 86901; 85018 ×2; 85014 ×2; 36430; J1940; P9016 ×2; J7050 ×2

== ENCOUNTER 2021-02-24 18:30 | Emergency (ER) | payer OTHER ==
--- OUTSIDE RECORDS SUMMARY | 2021-02-24 18:58 | XMS REPORT | Continuity of Care Document ---
:1955 Author Organization [facility] Address [address] [place] [address] [place]. [address] [place] [id number] Care Team Providers Name Role Phone Nando Olson MD Primary Care Physician Meek Augustine MD Attending Clinician Norberto HART Attending Clinician Roger Zapata Attending Clinician Eugenio HART Attending Clinician Tres Reddy Attending Clinician Tarun HART Attending Clinician Radha HART Attending Clinician Demarco HART Attending Clinician MD ROGER ZAPATA Attending Clinician Unavailable Andreia Jo NP Attending Clinician Robert HERNANDEZ Attending Clinician Yvrose Arenas MD Attending Clinician Bill HART Attending Clinician Orlando Reis Attending Clinician Unavailable YVROSE ARENAS Attending Clinician Unavailable Erin GAUJARDO Attending Clinician Santi Reynolds Attending Clinician Bill Attending Clinician JODI Admitting Clinician Unavailable MD ROGER ZAPATA Admitting Clinician Unavailable YVROSE ARENAS Admitting Clinician Unavailable Payers Payer Name Policy Type Policy Effective Date Expiration Date Sour ce Number MEDICAREMEDICARE PART [id number] 2020 Mariusz bo A AND 00:00:00 [facility] [id number] 2019 [facility] AETNAAETNA [id number] 2021 [facility] JOHN/[id number]/-[facility] MEDICAREMEDIC[facility] A [id number] 2020 YENNY Ren santi Serna [id number] 2019 00:00:00 - Nelson gardunoical -PresentMedicare Center AETNA - MGD CAREAETNA [id number] YENNY Kelly INDEMNITY NON 00:00:00 - Medical [id number] Jen[address] 1-PresentComm Problems Condition Condition Condition Status Onset Resolution Last Treating Co mments Source Name Details Category Date Date Treatment Clinician Date Pericardia Pericardia Disease Active [place] effusion l effusion - Me thodi 00:00: st 00 ESRD (end ESRD (end Disease Active [place] [facility] stage stage 6-29 Methodi renal renal 00:00: st disease) disease) 00 Pleural Pleural Disease Active Viola effusion, effusion, 6-29 Meth ramana bilateral bilateral 00:00: st 00 Essential Essential Disease Active 2019-[address] hypertensi hypertensi 2- Sweta kes - on on 00:00: Medical 00 Center Thrombocyt Thrombocyt Disease Active 2019-[address] openia openia 2- [facility] s/p ACB x2 s/p ACB x2 Disease Active 2019-[address] - - - [facility] - Mark- Mark- 00:00: Me dical /2019 00 Center Difficulty Difficulty Disease Active 2016-08 [place] swallowing swallowing 2- Me thodi 00:00: st 00 Dysphagia Dysphagia Disease Active 2016-08 [place] 2-26 Methodi 00:00: st 00 N18.6 Diagnosis Active 2016-082017-06-01 Mem oria 0-02 11:32:00 l N18.6 00:00: [place] 00 Active 05/24/2017 [facility] Type 2 Type 2 Disease Active Viola diabetes diabetes 9-27 Method i mellitus mellitus 00:00: st 00 WOUND Diagnosis Active 2017-06-08 Mem oria INFECTION 7- 09:19:00 l WOUND 14:12: [place] INFECTION 00 Active 03/04/2017 [facility] ESRD Diagnosis Active 2017-02-26 Mem oria - 06:06:00 l ESRD 00:00: [place] 00 Active 02/12/2017 [facility] Anxiety Problem Active 2017-06-04 Dayron boubacar (finding) 1- 02:00:03 l Anxiety 00:00: Colin (finding) 00 Active 08/23/2011 Problem 06/04/2017 [facility] Fracture Problem Resolve 2017-06-04 Me moria of d 02:00:03 l shoulder Fracture Herm doris (disorder) of shoulder (disorder) Resolved Problem 06/04/20172012 [facility] Intracrani Problem Resolve 2017-06-04 Memoria al venous d 02:00:03 l thrombosis Michael n (disorder) Intracrani al venous thrombosis (disorder) Resolved Problem 06/04/2017 patietn had stroke [facility] Myocardial Problem Resolve 2017-06-04 Memoria infarction d 02:00:03 l (disorder) Michael n Myocardial infarction (disorder) Resolved Problem 06/04/20171998 [facility] Conduction Problem Active 2017-06-04 M emoria disorder 02:00:03 l of the [place] heart Conduction (disorder) disorder of the heart (disorder) Active Problem 06/04/2017 [facility] Cerebrovas Problem Active 2017-06-04 M emoria cular 02:00:03 l accident Colin (disorder) Cerebrovas cular accident (disorder) Active Problem 06/04/2017 [facility] Dependence Problem Active 2017-06-04 M emoria on 02:00:03 l continuous Michael n positive Dependence airway on pressure continuous ventilatio positive n airway (finding) pressure ventilatio n (finding) Active Problem 06/04/2017 not using at this time [facility] Diabetes Problem Active 2017-06-04 Mem oria mellitus 02:00:03 l (disorder) Diabetes He rmann mellitus (disorder) Active Problem 06/04/2017 [facility] Hyperlipid Problem Active 2017-06-04 M emoria emia 02:00:03 l (disorder) Michael n Hyperlipid emia (disorder) Active Problem 06/04/2017 [facility] Hypertensi Problem Active 2017-06-04 M emoria ve 02:00:03 l disorder, [place] systemic Hypertensi arterial ve (disorder) disorder, systemic arterial (disorder) Active Problem 06/04/2017 [facility] Obesity Problem Active 2017-06-04 Dayron boubacar (disorder) 02:00:03 l Obesity Colin (disorder) Active Problem 06/04/2017 [facility] Peripheral Problem Active 2017-06-04 M emoria vascular 02:00:03 l disease Colin (disorder) Peripheral vascular disease (disorder) Active Problem 06/04/2017 swolling [facility] Sleep Problem Active 2017-06-04 Memor ia apnea 02:00:03 l (finding) Sleep Michael n apnea (finding) Active Problem 06/04/2017 [facility] ESRD on ESRD on Disease Active [facility] hemodialys hemodialys [facility] Rectal Rectal Disease Resolve 2021-02-17 2021-02-17 Viola bleeding bleeding d 624 00:00:00 08:41:35 Me thodi 00:00: st 00 GI bleed GI bleed Disease Resolve 2021-02-17 2021-02-18 Viola d 6 00:00:00 13:19:25 Method i 00:00: st 00 History of Past Illness Condition Condition Condition Status Onset Resolution Last Treating Co mments Source Name Details Category Date Date Treatment Clinician Date Arterioven Problem 2016-2017-03-07 2017-03-07 Memoria ous 03-04 04:57:57 04:57:57 l fistula, 05:00: Colin acquired Arterioven 00 ous fistula, acquired 7 03/07/2017 [facility] Infection Problem 2017-03-07 2017-03-07 Memoria following 03-04 04:57:57 04:57:57 l a 05:00: [place] procedure, Infection 00 initial following encounter a procedure, initial encounter 03/04/2017 03/07/2017 [facility] Allergies, Adverse Reactions, Alerts Allergy Allergy Status Severity Reaction(s) Onset Inactive Treating Comm ents Source Name Type Date Date Clinician NKFA NKFA Active Lukazs Shaw Family History Family Member Diagnosis Comments Start Date Stop Date Source Natural mother Diabetes Jonh Ne thodist Natural mother Hypertension Borja [facility] Social History Social Habit Start Date Stop Date Quantity Comments Source History SDOH [facility] Std Drinks [facility] Center History SDOH [facility] - Alcohol Binge Medical Jenaro ter History of tobacco Current smoker [place] [facility] use Exposure to Not sure Viola Metho dist SARS-CoV-2 (event) Cigarettes smoked 2021-02-22 2021-02-22 Borja [facility] current (pack per 00:00:00 00:00:00 day) - Reported Cigarette 2021-02-22 2021-02-22 Borja Method ist pack-years 00:00:00 00:00:00 Tobacco use and 2021-02-22 2021-02-22 Former user Borja [facility] exposure 00:00:00 00:00:00 Alcohol intake 2021-02-22 2021-02-22 Current [facility] thodist 00:00:00 00:00:00 non-drinker of alcohol (finding) History SDNY 2020-08-08 2020-08-[address] [facility] - Alcohol Frequency 00:00:00 00:00:00 Medical Center Social History 2017-05-31 2017-05-31 [facility] Fiona ermann 21:00:35 21:00:35 Sex Ass[birth year] [facility] ethodist 00:00:00 00:00:00 Smoking Status Start Date Stop Date Source Former smoker 2021-02-22 00:00:00 2021-02-22 00:00:00 Jonh Corbinist Medications Ordered Filled Start Stop Current Ordering Indication Dosage Frequency Signature Comments Components Source Medication Medication Date Date Medication? Clinician (SIG) Name Name multivitami Yes 1{capsu QD Take 1 [place] capsule 02-21 le} capsule by Meth ramana 12:07: mouth st 34 daily. aspirin Yes 81mg QD Take 81 mg [place] (ECOTRIN) 7-02 by mouth Method i 81 MG 12:07: daily. st enteric 34 coated tablet pantoprazol 2020- Yes 40mg Q.5D Take 1 [place] e 7-09 30- tablet (40 Methodi (PROTONIX) 00:00: 23:59 mg total) s t 40 MG EC 00 :00 by mouth 2 tablet (two) times a day for 30 days. amLODIPine 2020- Yes 5mg QD Take 1 [place] (NORVASC) 5 02-17- tablet (5 Me thodi mg tablet 00:00: 23:59 mg total) st 00 :00 by mouth daily for 30 days. lisinopriL 2020- Yes 40mg QD Take 1 [place] (PRINIVIL) 02-17- tablet (40 Me thodi 40 mg 00:00: 23:59 mg total) st tablet 00 :00 by mouth daily for 30 days. pantoprazol 2020- No 40mg QD Take 1 [place] 02-17 tablet (40 Methodi (Protonix) 00:00: 00:00 mg total) s t 40 MG EC 00 :00 by mouth tablet daily for 30 days. carvediloL Yes 12.5mg Take 12.[address] (COREG) 25 1-12 mg by [facility] - MG tablet 11:09: mouth 2 Medic al 42 (two) Center times daily with breakfast and dinner . allopurinoL Yes 100mg QD Take [address] (ZYLOPRIM) 1-12 mg by [facility] - 100 MG 11:09: mouth Medical tablet 42 daily. Center aspirin 81 Yes 81mg QD Take [address] MG EC 1-12 by mouth [facility] - tablet 11:09: daily. Medical 42 Center multivitami Yes 1{capsu QD Take [address] n capsule 1-12 le} capsule by Luke s - 11:09: mouth Medical 42 daily. Center cyanocobala Yes 1000ug Inject [facility] min 1-12 1,000 mcg [facility]ukes - (VITAMIN 11:09: intramuscu Med ical B-12) 1,000 42 larly Center mcg/mL every 30 injection (thirty) days. apixaban Yes 2.5mg Q.5D Take 2.[address] (ELIQUIS) 1-12 mg by [facility]ukes - 2.5 mg Tab 11:09: mouth 2 Medi amberly tablet 42 (two) Center times daily. ferrous 2019-08- No 325mg Take [address] sulfate 325 2-31 12-31 tablet [facility] - (65 FE) MG 00:00: 23:59 (325 mg Med ical tablet 00 :00 total) by Center mouth every other day. rosuvastati 2019-08 No 20mg QD Take [address] n (CRESTOR) 2-30 12-30 tablet (20 L ukes - 20 MG 00:00: 23:59 mg total) Medica l tablet 00 :00 by mouth Center daily. losartan 2019-08 No 100mg QD Take 1 [facility] (COZAAR) 2-30 12-30 tablet [facility] - 100 MG 00:00: 23:59 (100 mg Medical tablet 00 :00 total) by Center mouth daily. hydrALAZINE 2019-08 No 100mg Q.5D Take [address] [...] Center E) 0.8 mg Tab tablet hydrALAZINE 2019-08 No 100mg Take [address] (APRESOLINE [...] OR type BUTTOCKS EVERY 30 DAYS omeprazole 2020- No Status post TAKE 1 Viola (PriLOSEC) 10-17 07-02 bariatric CAPSULE BY Methodi 40 MG 00:00: 00:[address] capsule 00 :00 EVERY DAY syringe 2019- No Intestinal As [place] with needle 02-22 11-04 malabsorpti Directed Methodi 3 mL 25 x 00:00: 00:00 on, st 8" 00 :00 unspecified syringe type heparin 2016-08 No 5,000 Memoria 0-10 unit, l 21:00: Route: [place] 00 SUB-Q, Q8H, Dosing Weight 123.182, kg, Start date: 06/01/17 16:00:00 CDT, Duration: 30 day, Stop date: 07/01/17 8:00:00 CLINICAL EDUCATION ASSISTANT Ofirmev 2016-08 No 1,000 mg, Memor ia 0-10 Route: IV, l 19:37: ONCE, Colin 00 Dosing Weight 123.182, kg, Start date: 06/01/17 [...] boubacar 0-10 (Same as: l 19:07: Apresoline Colin 00 ) Push over 5 minutes Metoprolol 2016-08 No Notes: Memor ia 0-10 (Same as: l 19:07: Lopressor) Push over 2 minutes Acetaminoph 2016-08 No Notes: Max Memoria en 0-10 acetaminop l 19:07: hen 4000 Colin 00 mg/day (4 gm/day). (Same as: Tylenol [...] 0-10 not exceed l 18:58: 4 gm/day. [place] (Same as: Tylenol) vancomycin 2016-08 No Route: [...] heparin Metoclopram No Notes: Dayron boubacar marie - (Same as: l 16:26: Reglan) Flumazenil No Notes: Memor ia 7- (Same as: l 16:26: Romazicon) Naloxone No Notes: Memoria - Same as l 16:26: Narcan Fentanyl No [...] 0 Tablet Refill(s) Zofran No Notes: Memoria -07 (Same as: l 15:17: Zofran) MEDICATION WASTE Product Size: 4 mg Product Wasted: ___ mg acetaminoph No Notes: Do M emoria en-codeine 02-26 not exceed l #3 15:17: 4gm/day of acetaminop hen. (Same as: Tylenol with Codeine # 3) Acetaminoph No Notes: Do Nelson cruz en 02-26 not exceed l 15:17: 4 gm/day. [place] 00 (Same as: Tylenol) protamine No Route: IV, [...] (ANES) 02-26 Drug form: l 14:26: SOLN, Colin 00 ONCE, Stop date: 02/26/17 9:26:00 CDT vancomycin No Route: IV, Nelson romoa (ANES) 02-26 Drug form: l (ANES) 14:09: [...] 02-24 SUB-Q, l UNT/ML 14:25: BID, am [place] Injectable AND pm Solution MEALS [Levemir] Probiotic Yes 1 cap, PO, Me moria Formula 7-05 Daily, l 14:24: PROBIOTIC PEARLS COMPLETE( DIGESTIVE hEALTH) Multiple 2017 Yes 1 tab, PO, Mem oria Vitamins [...] microgram l oral 14:18: = 1 cap, [place] capsule 00 PO, Every Other Day rosuvastati Yes 5 mg = 1 Me moria n 5 mg oral 7-05 tab, PO, l tablet 14:17: Daily allopurinol Yes 50 mg, PO, Memoria 100 mg oral 7-05 Daily l tablet 14:16: Hydralazine Yes 50 mg = 1 M emoria Hydrochlori 7-05 tab, PO, l de 50 MG 14:15: TID Colin Oral Tablet 00 carvedilol Yes 6.25 mg [...] tab, PO, l Tablet 14:07: QAM apixaban Yes 2.5 mg = 1 Mem oria 2.5 MG Oral 7-05 tab, PO, l Tablet 14:04: BID Colin [Eliquis] 00 rosuvastati Yes 5mg QD Take 5 mg [place] (CRESTOR) 2-23 by mouth Meth ramana 5 MG tablet 00:00: once st 00 daily. carvediloL Yes 12.5mg Q.5D 12.5 mg 2 Borja (COREG) 2-22 (two) Methodi 12.5 MG 00:00: times a st tablet 00 day with meals. calcitriol Yes .25ug Q2D Take 0.25 [place] (ROCALTROL) 2-16 mcg by Method i 0.25 MCG 00:00: mouth st capsule 00 every other day. ELIQUIS 2.5 2.5mg Q.5D Take 2.5 Borja mg tablet 2-14 07-02 mg by Methodi 00:00: 00:[address] 00 :00 (two) times a day. calcium Yes 1{tbl} [...] Time Observation Value Comments Source Systolic blood 2021-02-21 08:37:05 165 mm[Hg] Unique n [facility] pressure Diastolic blood 2021-02-21 08:37:05 78 mm[Hg] José Miguel Garcia pressure Heart rate 2021-02-21 08:37:05 59 /min Jonh Garcia Respiratory rate 2021-02-21 08:37:05 17 /min Yancy Garcia Oxygen saturation in 2021-02-21 08:37:05 98 /min Jonh Garcia Arterial blood by Pulse oximetry Body temperature 2021-02-21 03:10:28 36 Katya [facility]ous [facility] Body weight 2021-02-21 03:10:28 77.928 kg Borja [facility] BMI 2021-02-21 03:10:28 24.65 kg/m2 Borja [facility] Body height 2021-02-12 22:20:00 177.8 cm Viola [facility] Systolic blood 2020-09-03 11:20:00 159 mm[Hg] [facility] Diastolic blood 2020-09-03 11:20:00 77 mm[Hg] [facility] Heart rate 2020-09-03 11:20:00 70 /min [facility] Body temperature 2020-09-03 10:43:00 36.39 Katya [facility] Respiratory rate 2020-09-03 10:43:00 18 /min [facility] Body height 2020-09-03 10:43:00 177.8 cm [facility] Body weight 2020-09-03 10:43:00 94.802 kg [facility] BMI 2020-09-03 10:43:00 29.99 kg/m2 [facility] Oxygen saturation in 2020-09-03 10:43:00 96 /min room air [facility] - Arterial blood by Medical Ce nter Pulse oximetry Systolic (mm Hg) 2017-06-01 20:15:00 Dyaron rial [place] Diastolic (mm Hg) 2017-06-01 20:15:00 Mem orial [place] Respitory Rate 2017-06-01 20:15:00 Memori al [place] Systolic (mm Hg) 2017-06-01 20:00:00 Dayron rial [place] Diastolic (mm Hg) 2017-06-01 20:00:00 Mem orial [place] Respitory Rate 2017-06-01 20:00:00 Memori al [place] Systolic (mm Hg) 2017-06-01 19:45:00 Dayron rial [place] Diastolic (mm Hg) 2017-06-01 19:45:00 Mem orial [place] Respitory Rate 2017-06-01 19:45:00 Memori al [place] Temperature Oral (F) 2017-06-01 16:00:00 98.5 F [facility] [place] BMI Calculated 2017-05-31 20:47:00 Memori al [place] Height 2017-05-31 20:47:00 177.8 cm [facility] [place] Weight 2017-05-31 20:47:00 [facility] [place] Systolic (mm Hg) 2017-03-04 22:53:00 Dayron rial [place] Diastolic (mm Hg) 2017-03-04 22:53:00 Mem orial [place] Temperature Oral (F) 2017-03-04 22:53:00 97.9 F [facility] [place] Respitory Rate 2017-03-04 22:53:00 Memori al [place] Heart Rate 2017-03-04 22:53:00 [facility] [place] Respitory Rate 2017-03-04 20:46:00 Memori al [place] Heart Rate 2017-03-04 20:46:00 [facility] [place] Systolic (mm Hg) 2017-03-04 20:46:00 Dayron rial [place] Diastolic (mm Hg) 2017-03-04 20:46:00 Mem orial [place] BMI Calculated 2017-03-04 19:30:00 Memori al [place] Height 2017-03-04 19:30:00 170.18 cm [facility] [place] Weight 2017-03-04 19:30:00 [facility] [place] Respitory Rate 2017-03-04 19:30:00 Memori al [place] Heart Rate 2017-03-04 19:30:00 [facility] [place] Temperature Oral (F) 2017-03-04 19:30:00 99 F [facility] [place] Systolic (mm Hg) 2017-03-04 19:30:00 Dayron rial [place] Diastolic (mm Hg) 2017-03-04 19:30:00 Mem orial [place] Respitory Rate 2017-02-26 17:00:00 Memori al [place] Systolic (mm Hg) 2017-02-26 17:00:00 Dayron rial [place] Diastolic (mm Hg) 2017-02-26 17:00:00 Mem orial [place] Respitory Rate 2017-02-26 16:45:00 Memori al [place] Systolic (mm Hg) 2017-02-26 16:45:00 Dayron rial [place] Diastolic (mm Hg) 2017-02-26 16:45:00 Mem orial [place] Respitory Rate 2017-02-26 16:30:00 Memori al [place] Systolic (mm Hg) 2017-02-26 16:30:00 Dayron Resendezann Diastolic (mm Hg) 2017-02-26 16:30:00 Randolph Shaw Temperature Oral (F) 2017-02-26 11:45:00 97.9 F [facility] [place] Heart Rate 2017-02-24 13:43:[facility] Oral (F) 2017-02-24 13:43:00 99.2 F [facility] [place] Weight 2017-02-24 13:27:00 [facility] BMI Calculated 2017-02-24 13:27:00 Jie Dumont Height 2017-02-24 13:27:00 177.8 cm [facility] Procedures Procedure Date / Time Performing Source Performed Clinician BASIC METABOLIC PANEL 2021-02-21 Viry Todford Borja 05:26:00 Chrisgollo [facility] MAGNESIUM LEVEL 2021-02-21 [facility] 05[facility]26:00 Chrisgollo [facility] PHOSPHORUS LEVEL 2021-02-21 [facility] 05:26:00 Chrisgollo [facility] ALBUMIN LEVEL 2021-02-21 [facility] 05:26:00 Chrisgollo [facility] CBC WITH PLATELET AND DIFFERENTIAL 2021-02-21 Anusha Baires Viola 05:26:00 Chrisgollo [facility] ESTIMATED GFR 2021-02-21 Rakel Baires Viola 05:26:00 Gargollo [facility] HEMODIALYSIS 2021-02-20 ViryRakel franklin Viola 00:06:53 Valerianollcristobal [facility] TTE COMPLETE, W CONTRAST, W 2021-02-19 Orestes Becker ton DOPPLER ([id number]) 13:39:48 Baptist US THORACENTESIS WITH IMAGING 2021-02-19 Martin Justice 11:01:23 Ede Garcia XR CHEST 1 VW PORTABLE 2021-02-19 Ibrahima Israel 09:13:00 Rambo Garcia COMPREHENSIVE METABOLIC PANEL 2021-02-19 Orestes Becker 04:22:00 [facility] HC COMPLETE BLD COUNT W/AUTO DIFF 2021-02-19 Orestes Becker 04:22:00 [facility] MAGNESIUM LEVEL 2021-02-19 Orestes Becker 04:22:00 [facility] PHOSPHORUS LEVEL 2021-02-19 Orestes Becker 04:22:00 [facility] ESTIMATED GFR 2021-02-19 Orestes Becker 04:22:00 [facility] SMEAR REVIEW 2021-02-19 Orestes Becker 04:22:00 [facility] HEMODIALYSIS 2021-02-18 ViryRakel Jonh 06:58:37 Tiana [facility] HC COMPLETE BLD COUNT W/AUTO DIFF 2021-02-18 Wade Pal Viola 04:34:00 [facility] BASIC METABOLIC PANEL 2021-02-18 Brendan Zapata Borja 04:34:00 Roger [facility] ESTIMATED GFR 2021-02-18 Brendan Zapata Borja 04:34:[address] CHEST WO CONTRAST 2021-02-17 Brendan Zapata 22:48:32 Roger [facility] XR CHEST 1 VW 2021-02-17 Gigi Sood Viola 16:57:34 [facility] US THORACENTESIS WITH IMAGING 2021-02-17 Martin Justice 16:45:00 Ede Sewell [facility] TTE COMPLETE, WO CONTRAST, W 2021-02-17 Rakel Bairesu [facility] DOPPLER ([id number]) 13:36:00 Tiana [facility] BASIC METABOLIC PANEL 2021-02-17 Jena Mcneil Viola 04:18:00 [facility] HC COMPLETE BLD COUNT W/AUTO DIFF 2021-02-17 Wade Pal Viola 04:18:00 [facility] ESTIMATED GFR 2021-02-17 Jena Mcneil Viola 04:18:00 [facility] SMEAR REVIEW 2021-02-17 Jena Mcneil Viola 04:18:00 [facility] HEMODIALYSIS 2021-02-16 Jena Mcneil Viola 08:48:09 [facility] BASIC METABOLIC PANEL 2021-02-16 Jena Mcneil Viola 04:08:00 [facility] CBC WITH PLATELET AND DIFFERENTIAL 2021-02-16 Brendan Zapata Borja 04:08:00 Roger [facility] ESTIMATED GFR 2021-02-16 Jena Mcneil Viola 04:08:00 [facility] SMEAR REVIEW 2021-02-16 Brendan Zapata 04:08:00 Roger [facility] XR CHEST 1 VW PORTABLE 2021-02-16 Martin Justice 01:51:26 Ede Sewell [facility] ULTRAFILTRATION 2021-02-15 Jena Mcneil 14:07:31 Baptist ESOPHAGOGASTRODUODENOSCOPY (EGD) 2021-02-15 Demarco Nawafcarline Borja 09:30:00 [facility] COLONOSCOPY 2021-02-15 Fabiana Pal 09:30:00 [facility] SURGICAL PATHOLOGY REQUEST 2021-02-15 Jodi Brendanharoon Valdez on 09:08:00 Roger [facility] HEMOGLOBIN & HEMATOCRIT 2021-02-15 JbGloryharoon Borja 05:37:00 Roger [facility] COMPREHENSIVE METABOLIC PANEL 2021-02-15 [facility] 05:37:00 Roger [facility] MAGNESIUM LEVEL 2021-02-15 Brendan Zapata 05:37:00 Roger [facility] PHOSPHORUS LEVEL 2021-02-15 JodiGloryharoon Borja 05:37:00 Roger [facility] ESTIMATED GFR 2021-02-15 JbGloryharoon Borja 05:37:00 Roger [facility] HEMOGLOBIN & HEMATOCRIT 2021-02-14 Jodi Brendanharoon Borja 21:58:00 Roger [facility] HEMOGLOBIN & HEMATOCRIT 2021-02-14 JbGloryharoon Borja 17:23:00 Roger [facility] XR CHEST 1 VW PORTABLE 2021-02-14 Jena Mcneil 12:41:56 [facility] TRANSFUSE RED BLOOD CELLS 2021-02-14 Jena Mcneil n 10:58:52 [facility] TRANSFUSE RED BLOOD CELLS 2021-02-14 Jena Mcneil n 10:11:54 [facility] HEMODIALYSIS 2021-02-14 Jena Mcneil 07:47:51 [facility] COVID-19 QUALITATIVE RT-PCR 2021-02-14 Brendan Zapata 05:27:00 Roger Garcia HC COMPLETE BLD COUNT W/AUTO DIFF 2021-02-14 Isidro Thornton 04:15:00 [facility] COMPREHENSIVE METABOLIC PANEL 2021-02-14 Isidro Thornton Mariusz bo 04:15:00 [facility] MAGNESIUM LEVEL 2021-02-14 Isidro Thornton 04:15:00 [facility] PHOSPHORUS LEVEL 2021-02-14 Norberto, Isidro Borja 04:15:00 Baptist B NATRIURETIC PEPTIDE 2021-02-14 Rakel Baires 04:15:00 Gargollo [facility] TOTAL IRON BINDING CAPACITY 2021-02-14 Rakel Baires ton 04:15:00 Gargollo [facility] FERRITIN LEVEL 2021-02-14 Rakel Baires 04:15:00 Gargollo [facility] ESTIMATED GFR 2021-02-14 Isidro Thornton 04:15:00 [facility] TYPE AND SCREEN 2021-02-[address] [facility] espinal Viola 20:40:00 [facility] PREPARE RBC 2021-02-13 MaggietnJena espinal Viola 20:40:00 Baptist HEMOGLOBIN & HEMATOCRIT 2021-02-13 [facility] Vi[facility] 18:48:00 Roger Baptist HEPATITIS B SURFACE ANTIGEN 2021-02-13 Rakel Baires ton 12:52:00 Chrisgollo [facility] HEPATITIS B SURFACE AB, 2021-02-13 Rakel Baires QUANTITATIVE 12:52:00 Gargollo [facility] US THORACENTESIS WITH IMAGING 2021-02-13 Isidro Thornton 10:07:03 Baptist AFB STAIN 2021-02-13 Martin Justice Viola 09:30:00 Ede Salim [facility] FUNGUS CULTURE 2021-02-13 [facility] 09:30:00 Ede Salim [facility] FUNGUS SMEAR 2021-02-13 BhavikMartin Viola 09:30:00 Ede Salim [facility] AFB CULTURE 2021-02-13 BhavikMartin Viola 09:30:00 Ede Salim [facility] GRAM STAIN ONLY 2021-02-13 BhavikMartin Viola 09:30:00 Ede Salim [facility] BLOOD CULTURE, AEROBIC & ANAEROBIC 2021-02-13 JbGloryr Viola 09:30:00 Roger Garcia GLUCOSE LEVEL, MISC FLUID 2021-02-13 [facility] 09:[facility]00 Baptist LDH, MISC FLUID 2021-02-13 Isidro Thornton Viola 09:30:00 Baptist PH, MISC FLUID 2021-02-13 Norberto, Isidro Viola 09:30:00 Baptist PROTEIN, MISC FLUID 2021-02-13 Martin Justice Viola 09:30:00 Ede Sewell [facility] CELL COUNT AND DIFFERENTIAL, BODY 2021-02-13 Malena Justice i Viola FLUID 09:30:00 Ede Sewell [facility] CYTOLOGY (NON-GYNECOLOGICAL) 2021-02-13 Brendan Zapata ston REQUEST 09:30:00 Roger [facility] XR CHEST 1 VW PORTABLE 2021-02-13 Marvin Read Viola 09:27:12 Duglas Garcia URINE CULTURE 2021-02-13 Norberto, Isidro Viola 06:42:00 Baptist URINALYSIS SCREEN AND MICROSCOPY, 2021-02-13 Norberto, Isidro Viola WITH REFLEX TO CULTURE 06:42:00 [facility] HEMODIALYSIS 2021-02-13 Rakel Baires Viola 06:25:08 Gargollo [facility] TROPONIN 2021-02-13 Norberto, Isidro Viola 03:41:00 [facility] HC COMPLETE BLD COUNT W/AUTO DIFF 2021-02-13 Norberto, Isidro Viola 03:41:00 [facility] PROTHROMBIN TIME WITH INR 2021-02-13 Isidro Thornton n 03:41:00 [facility] COMPREHENSIVE METABOLIC PANEL 2021-02-13 Isidro Thornton 03:41:00 [facility] MAGNESIUM LEVEL 2021-02-13 [facility], Isidro Viola 03:41:00 [facility] PHOSPHORUS LEVEL 2021-02-13 Norberto, [facility] 03:41:00 [facility] ESTIMATED GFR 2021-02-13 Diab, Isidro Viola 03:41:00 [facility] ECG ED PRELIMINARY INTERPRETATION 2021-02-13 Elisabeth Augustine Viola 01:56:16 [facility] TROPONIN 2021-02-12 Norberto, Isidro Viola 23:41:[address] CHEST WO CONTRAST 2021-02-12 Ulisses Bairessana Viola 22:18:22 [facility] XR CHEST 1 VW PORTABLE 2021-02-12 Veronica Augustine 20:07:40 [facility] HC COMPLETE BLD COUNT W/AUTO DIFF 2021-02-12 Elisabeth Augustine Viola 20:07:00 [facility] COMPREHENSIVE METABOLIC PANEL 2021-02-12 Veronica Augustine Fiona radha 20:07:00 [facility] AMYLASE LEVEL 2021-02-12 Fanta Augustinenifer Jonh 20:07:00 [facility] LIPASE LEVEL 2021-02-12 Davide Veronica Jonh 20:07:00 [facility] TROPONIN 2021-02-12 [facility] 20:07:00 [facility] ESTIMATED GFR 2021-02-12 DavideVeronica Jonh 20:07:00 [facility] ECG 12-LEAD 2021-02-12 [facility] 19:57:02 [facility] XR CHEST 1 VIEW PORTABLE/BEDSIDE 2020-08-[address] [facility] - 13:11:00 [facility] HEMODIALYSIS INPATIENT 2020-08-[address] [facility] - 07:26:45 [facility] BASIC METABOLIC PANEL (7) 2020-08-[address] [facility] - 04:04:00 [facility] CBC (HEMOGRAM ONLY) 2020-08-[address] [facility] - 04:04:00 [facility] MAGNESIUM 2020-08-[address] [facility] - 04:04:00 [facility] PHOSPHORUS 2020-08-[address] [facility] - 04:04:00 [facility] BASIC METABOLIC PANEL (7) 2020-08-[address] [facility] - 04:54:00 [facility] CBC (HEMOGRAM ONLY) 2020-08-[address] [facility] - 04:54:00 [facility] MAGNESIUM 2020-08-[address] [facility] - 04:54:00 [facility] PHOSPHORUS 2020-08-[address] [facility] - 04:54:00 [facility] XR CHEST 1 VIEW PORTABLE/BEDSIDE 2020-08-[address] [facility] - 03:30:[address] [facility] PREPARE LEUKO-REDUCED RBC 2020-08-[address] [facility] - 23:54:00 [facility] PREPARE LEUKO-REDUCED PLATELETS 2020-08-[address] [facility] - :54:00 [facility] POCT-GLUCOSE METER 2020-08-[address] [facility] - 15:46:[address] [facility] POCT-GLUCOSE METER 2020-08-17 Mark, Stewart [facility] - 12:21:[address] [facility] XR CHEST 1 VIEW PORTABLE/BEDSIDE 2020-08-[address] [facility] - 09:33:[address] [facility] POCT-GLUCOSE METER 2020-08-[address] [facility] - 08:23:[address] [facility] SARS-COV2/RT-PCR (HS & REF LABS) 2020-08-[address] [facility] - 05:25:00 [facility] BASIC METABOLIC PANEL (7) 2020-08-[address] [facility] - 05:19:00 [facility] CBC (HEMOGRAM ONLY) 2020-08-[address] [facility] - 05:19:00 [facility] MAGNESIUM 2020-08-[address] [facility] - 05:19:00 [facility] PHOSPHORUS 2020-08-[address] [facility] - 05:19:00 [facility] TRANSFUSE LEUKO-REDUCED PLATELETS 2020-08-[address] [facility] - 00:16:18 [facility] POCT-GLUCOSE METER 2020-08-[address] [facility] - 20:39:[address] [facility] HEMODIALYSIS INPATIENT 2020-08-[address] [facility] - 18:27:53 [facility] TRANSFUSE LEUKO-REDUCED RED BLOOD 2020-08-[address] [facility] - CELLS 16:59:07 [facility] POCT-GLUCOSE METER 2020-08-[address] [facility] - 16:56:[address] [facility] POCT-GLUCOSE METER 2020-08-[address] [facility] - 12:22:[address] [facility] POCT-GLUCOSE METER 2020-08-[address] [facility] - 07:21:[address] [facility] BASIC METABOLIC PANEL (7) 2020-08-[address] [facility] - 04:06:00 [facility] CBC (HEMOGRAM ONLY) 2020-08-16 [facility]andra [facility] - 04:06:00 [facility] MAGNESIUM 2020-08-[address] [facility] - 04:06:00 [facility] PHOSPHORUS 2020-08-[address] [facility] - 04:06:00 [facility] CALCIUM, IONIZED 2020-08-[address] [facility] - 04:06:00 [facility] XR CHEST 1 VIEW PORTABLE/BEDSIDE 2020-08-[address] [facility] - 03:21:00 [facility] POCT-GLUCOSE METER 2020-08-[address] [facility] - 20:41:[address] [facility] POCT-GLUCOSE METER 2020-08-[facility] [facility] XR CHEST 1 VIEW PORTABLE/BEDSIDE 2020-08-[address] [facility] [facility] - 14:35:00 [facility] US THORACENTESIS 2020-08-15 [facility] Stewart [facility] - 13:25:[address] [facility] POCT-GLUCOSE METER 2020-08-15 [facility] - 12:15:[address] [facility] PT/APTT 2020-08-[address] [facility] - 09:33:00 [facility] POCT-GLUCOSE METER 2020-08-[address] [facility] - 07:28:[address] [facility] XR CHEST 1 VIEW PORTABLE/BEDSIDE 2020-08-[address] [facility] - 03:53:00 [facility] ANTI-NUCLEAR ANTIBODY (MISSAEL) 2020-08-[address] [facility] - 03:47:00 [facility] BASIC METABOLIC PANEL (7) 2020-08-15 Charli Alexandra [facility] - 03:47:00 [facility] CBC (HEMOGRAM ONLY) 2020-08-[address] [facility] - 03:47:00 [facility] MAGNESIUM 2020-08-[address] [facility] - 03:47:00 [facility] PHOSPHORUS 2020-08-[address] [facility] - 03:47:00 [facility] CALCIUM, IONIZED 2020-08-[address] [facility] - 03:47:00 [facility] MISSAEL TITER AND PATTERN 2020-08-15 Charli Alexandra [facility] - 03:47:00 [facility] PREPARE RBC 2020-08-[address] [facility] - :54:[address] [facility] PREPARE PLATELETS 2020-08-[address] [facility] - :54:[address] [facility] PREPARE PLASMA 2020-08-[address] [facility] - :54:[address] [facility] OXYGEN SATURATION, MEASURED 2020-08-14 Charli Alexandra [facility] - 10:38:00 [facility] US ABDOMEN LIMITED 2020-08-[address] [facility] - 10:23:00 [facility] POCT-GLUCOSE METER 2020-08-[address] [facility] - 06:05:[address] [facility] BASIC METABOLIC PANEL (7) 2020-08-[address] [facility] - 03:52:00 [facility] CBC (HEMOGRAM ONLY) 2020-08-[address] [facility] - 03:52:00 [facility] MAGNESIUM 2020-08-[address] [facility] - 03:52:00 [facility] PHOSPHORUS 2020-08-[address] [facility] - 03:52:00 [facility] LIPID PANEL 2020-08-[address] [facility] - 03:52:00 [facility] HEMOGLOBIN A1C 2020-08-[address] [facility] - 03:52:00 [facility] HC LAB HIV-1 AG W/HIV-1&2 AB 2020-08-[address] [facility] - 03:52:00 [facility] HEPATITIS C ANTIBODY 2020-08-[address] [facility] - 03:52:00 [facility] HEPATITIS B PANEL 2020-08-[address] [facility] - 03:52:00 [facility] CALCIUM, IONIZED 2020-08-[address] [facility] - 03:52:00 [facility] BLOOD GAS, ARTERIAL 2020-08-[address] [facility] - 03:52:00 [facility] XR CHEST 1 VIEW PORTABLE/BEDSIDE 2020-08-[address] [facility] - 01:23:00 [facility] POCT-GLUCOSE METER 2020-08-[address] [facility] - 00:31:[address] [facility] BLOOD GAS, ARTERIAL 2020-08-13 Sera, Estee [facility] - 19:34:00 [facility] LACTIC ACID, ARTERIAL 2020-08-13 [facility] - 19:34:00 [facility] SODIUM NA-STAT LAB 2020-08-13 Sera, Ackygerardo [facility] - 19:34:00 [facility] POTASSIUM-STAT LAB 2020-08-[address] [facility] [facility] - 19:34:00 [facility] GLUCOSE-STAT LAB 2020-08-13 Sera, Ackygerardo [facility] - 19:34:00 [facility] HGB/HCT (H&H) - STAT LAB 2020-08-[address] [facility] - 19:34:00 [facility] BLOOD GAS, ARTERIAL 2020-08-[address] [facility] - 16:17:[address] [facility] SODIUM NA-STAT LAB 2020-08-[address] [facility] - 16:17:[address] [facility] POTASSIUM-STAT LAB 2020-08-[address] [facility] - 16:17:[address] [facility] GLUCOSE-STAT LAB 2020-08-[address] [facility] - 16:17:[address] [facility] HGB/HCT (H&H) - STAT LAB 2020-08-[address] [facility] - 16:17:[address] [facility] XR CHEST 1 VIEW PORTABLE/BEDSIDE 2020-08-[address] [facility] - 15:30:00 [facility] CALCIUM, IONIZED 2020-08-[address] [facility] - 14:31:00 [facility] PT/APTT 2020-08-[address] [facility] - 14:30:00 [facility] PROTHROMBIN TIME/INR 2020-08-[address] [facility] - 14:30:00 [facility] OXYGEN SATURATION, MEASURED 2020-08-[address] [facility] - 14:30:00 [facility] THROMBOELASTOGRAPH (TEG) 2020-08-[address] [facility] - 14:30:00 [facility] XR CHEST 1 VIEW PORTABLE/BEDSIDE 2020-08-[address] [facility] - 14:00:00 [facility] Center MAGNESIUM 2020-08-[address] [facility] - 13:44:00 [facility] BLOOD GAS, ARTERIAL 2020-08-[address] [facility] - 13:44:00 [facility] LACTIC ACID, ARTERIAL 2020-08-[address] [facility] - 13:44:00 [facility] PHOSPHORUS 2020-08-[address] [facility] - 13:44:00 [facility] CBC (HEMOGRAM ONLY) 2020-08-[address] [facility] - 13:44:00 [facility] OXYGEN SATURATION, MEASURED 2020-08-[address] [facility] - 13:44:00 [facility] COMPREHENSIVE METABOLIC PANEL 2020-08-13 Ari Sh[facility] B [facility] - 13:44:00 [facility] SODIUM NA-STAT LAB 2020-08-13 Ari Shanda B [facility] - 13:44:00 [facility] POTASSIUM-STAT LAB 2020-08-[address] [facility] - 13:44:00 [facility] GLUCOSE-STAT LAB 2020-08-13 Ari Shanda B [facility] - 13:44:00 [facility] Center HGB/HCT (H&H) - STAT LAB 2020-08-[address] [facility] - 13:44:00 [facility] LACTATE DEHYDROGENASE (LDH) 2020-08-[address] [facility] - 12:30:38 [facility] Center BILIRUBIN, TOTAL AND DIRECT 2020-08-13 Bill, Manu [facility] - 12:30:38 [facility] BLOOD GAS, ARTERIAL 2020-08-13 Bill, Manu [facility] - 12:27:17 [facility] Center PROTHROMBIN TIME/INR 2020-08-13 Bill, [facility] - 12:27:17 [facility] APTT 2020-08-13 Bill, Kristy [facility] - 12:27:17 [facility] Center FIBRINOGEN 2020-08-13 Bill, Kristy [facility] - 12:27:17 [facility] Center THROMBOELASTOGRAPH (TEG) 2020-08-13 Bill, [facility] - 12:27:17 Medical Center PLATELET COUNT 2020-08-13 Bill, [facility] - 12:27:17 [facility] Center HAPTOGLOBIN 2020-08-13 Bill, [facility] - 12:27:17 [facility] Center SODIUM NA-STAT LAB 2020-08-13 Bill, [facility] - 12:27:17 [facility] Center POTASSIUM-STAT LAB 2020-08-13 [facility], Kristy [facility] - 12:27:17 [facility] Center GLUCOSE-STAT LAB 2020-08-13 [facility], [facility] - 12:27:17 [facility] Center HGB/HCT (H&H) - STAT LAB 2020-08-13 [facility], [facility] - 12:27:17 Medical Center RETICULOCYTE COUNT 2020-08-13 [facility], Kristy [facility] - 12:27:00 [facility] HEPATITIS B SURFACE ANTIGEN 2020-08-[address] [facility] - 12:27:00 [facility] TRANSFUSE LEUKO-REDUCED RED BLOOD 2020-08-13 [facility], Kristy [facility] - CELLS 12:08:31 [facility] TRANSFUSE LEUKO-REDUCED RED BLOOD 2020-08-13 [facility], [facility] - CELLS 12:04:42 [facility] BLOOD GAS, ARTERIAL 2020-08-13 Bill, [facility] - 11:41:41 Medical Center CALCIUM, IONIZED 2020-08-13 Bill, Kristy [facility] - 11:41:41 [facility] Center PROTHROMBIN TIME/INR 2020-08-13 Bill, Kristy [facility] - 11:41:41 [facility] APTT 2020-08-13 Bill, Kristy [facility] - 11:41:41 [facility] Center FIBRINOGEN 2020-08-13 Bill, [facility] - 11:41:41 [facility] Center PLATELET COUNT 2020-08-13 Bill, Kristy [facility] - 11:41:41 [facility] SODIUM NA-STAT LAB 2020-08-13 Bill, Kristy [facility] - 11:41:41 [facility] POTASSIUM-STAT LAB 2020-08-13 Bill, Kristy [facility] - 11:41:41 [facility] GLUCOSE-STAT LAB 2020-08-13 Bill, Kristy [facility] - 11:41:41 [facility] HGB/HCT (H&H) - STAT LAB 2020-08-13 Bill, Kristy [facility] - 11:41:41 [facility] CBC W/PLT COUNT & AUTO 2020-08-[address] [facility] - DIFFERENTIAL 11:41:00 [facility] RETICULOCYTE COUNT 2020-08-13 Bill, Kristy [facility] - 11:41:00 [facility] TRANSFUSE LEUKO-REDUCED RED BLOOD 2020-08-13 Bill, Kristy [facility] - CELLS 11:26:33 [facility] TRANSFUSE LEUKO-REDUCED PLATELETS 2020-08-13 Bill, Kristy [facility] - 11:20:10 [facility] TRANSFUSE PLASMA 2020-08-13 Bill, Kristy [facility] - 11:19:41 [facility] TRANSFUSE PLASMA 2020-08-13 Bill, Kristy [facility] - 11:19:40 [facility] TRANSFUSE LEUKO-REDUCED PLATELETS 2020-08-13 Bill, Kristy [facility] - 11:18:31 [facility] TRANSFUSE LEUKO-REDUCED RED BLOOD 2020-08-13 Bill, Kristy [facility] - CELLS 11:05:28 [facility] TRANSFUSE LEUKO-REDUCED RED BLOOD 2020-08-13 Bill, Kristy [facility] - CELLS 11:04:50 [facility] POCT-ACT 2020-08-13 [facility] Stewart [facility] - 10:58:[address] [facility] PROTHROMBIN TIME/INR 2020-08-13 Bill, Kristy [facility] - 10:51:02 [facility] APTT 2020-08-13 Bill, Kristy [facility] - 10:51:02 [facility] FIBRINOGEN 2020-08-13 Bill, Kristy [facility] - 10:51:02 [facility] THROMBOELASTOGRAPH (TEG) 2020-08-13 Bill, Kristy [facility] - 10:51:02 [facility] Center PLATELET COUNT 2020-08-13 Bill, Kristy [facility] - 10:51:02 [facility] SODIUM NA-STAT LAB 2020-08-13 Bill, Kristy [facility] - 10:51:02 [facility] Center POTASSIUM-STAT LAB 2020-08-13 Bill, Kristy [facility] - 10:51:02 [facility] Center GLUCOSE-STAT LAB 2020-08-13 Bill, Kristy [facility] - 10:51:02 [facility] Center HGB/HCT (H&H) - STAT LAB 2020-08-13 Bill, Kristy [facility] - 10:51:02 [facility] Center BLOOD GAS, ARTERIAL 2020-08-13 Bill, Kristy [facility] - 10:51:02 [facility] TRANSFUSE LEUKO-REDUCED PLATELETS 2020-08-13 [facility], Kristy [facility] - 10:45:15 [facility] Center TRANSFUSE LEUKO-REDUCED PLATELETS 2020-08-13 [facility], Kristy [facility] - 10:41:21 [facility] Center TRANSFUSE LEUKO-REDUCED PLATELETS 2020-08-13 [facility], Kristy [facility] - 10:39:52 Medical Center POCT-ACT 2020-08-13 [facility], Stewart [facility] - 10:28:[address] [facility] BLOOD GAS, ARTERIAL 2020-08-13 [facility], Kristy [facility] - 10[facility]15:25 [facility] Center CALCIUM, IONIZED 2020-08-13 Bill, Kristy [facility] - 10:15:25 [facility] Center PROTHROMBIN TIME/INR 2020-08-13 [facility], [facility]y [facility] - 10:15:25 [facility] Center APTT 2020-08-13 [facility], Kristy [facility] - 10:15:25 [facility] Center FIBRINOGEN 2020-08-13 Bill, Kristy [facility] - 10:15:25 [facility] Center PLATELET COUNT 2020-08-13 Bill, Kristy [facility] - 10:15:25 [facility] Center SODIUM NA-STAT LAB 2020-08-13 Bill, Kristy [facility] - 10:15:25 [facility] Center POTASSIUM-STAT LAB 2020-08-13 Bill, Kristy [facility] - 10:15:25 [facility] Center GLUCOSE-STAT LAB 2020-08-13 Bill, Kristy [facility] - 10:15:25 [facility] Center HGB/HCT (H&H) - STAT LAB 2020-08-[address] [facility] - 10:15:25 [facility] PERIPHERAL BLOOD SMEAR - HOLD ONLY 2020-08-[address] [facility] - 10:15:00 [facility] POCT-ACT 2020-08-[address] [facility] - 09:49:[address] [facility] BLOOD GAS, ARTERIAL 2020-08-[facility] - 09:46:[address] [facility] SODIUM NA-STAT LAB 2020-08-13 [facility], Stewart [facility] - 09:46:[address] [facility] POTASSIUM-STAT LAB 2020-08-13 [facility] - 09:46:[address] [facility] GLUCOSE-STAT LAB 2020-08-13 [facility] - 09:46:[address] [facility] HGB/HCT (H&H) - STAT LAB 2020-08-13 [facility] - 09:46:[address] [facility] TRANSFUSE LEUKO-REDUCED RED BLOOD 2020-08-13 [facility] CELLS 09:34:12 [facility] POCT-ACT 2020-08-13 [facility] - 09:26:[address] [facility] BLOOD GAS, ARTERIAL 2020-08-13 [facility] - 09:20:[address] [facility] SODIUM NA-STAT LAB 2020-08-13 [facility] - 09:20:[address] [facility] POTASSIUM-STAT LAB 2020-08-13 [facility] - 09:20:[address] [facility] GLUCOSE-STAT LAB 2020-08-13 [facility] - 09:20:[address] [facility] HGB/HCT (H&H) - STAT LAB 2020-08-13 [facility] - 09:20:[address] [facility] POCT-ACT 2020-08-13 [facility] - 08:59:[address] [facility] ANESTHESIA DASIA 2020-08-[address] [facility] - 08:21:33 [facility] ABORH, MANUAL 2020-08-[address] [facility] - 08:14:00 [facility] POCT-ACT 2020-08-[address] [facility] - 08:11:[address] [facility] BLOOD GAS, ARTERIAL 2020-08-13 Bill, Kristy [facility] - 07:51:14 Medical Center CALCIUM, IONIZED 2020-08-13 Bill, Kristy [facility] - 07:51:14 [facility] Center SODIUM NA-STAT LAB 2020-08-13 Bill, Kristy [facility] - 07:51:14 Medical Center POTASSIUM-STAT LAB 2020-08-13 [facility], Kristy [facility] - 07:51:14 [facility] GLUCOSE-STAT LAB 2020-08-13 [facility], Kristy [facility] - 07:51:14 [facility] HGB/HCT (H&H) - STAT LAB 2020-08-13 [facility], Kristy [facility] - 07:51:14 [facility] BYPASS,AORTO CORONARY HENRY/SVG 2020-08-[address] [facility] - 07:07:[address] [facility] ENDOSCOPIC HARVEST,VEIN 2020-08-[address] [facility] - 07:07:[address] [facility] DASIA,3D 2020-08-[address] [facility] - 07:07:[address] [facility] XR CHEST 1 VIEW PORTABLE/BEDSIDE 2020-08-[address] [facility] - 06:41:[address] [facility] MAGNESIUM 2020-08-[address] [facility] - 06:28:[address] [facility] COMPREHENSIVE METABOLIC PANEL 2020-08-[address] [facility] - 06:28:[address] [facility] HEMOGLOBIN A1C 2020-08-[address] [facility] - 06:28:[address] [facility] LIPID PANEL 2020-08-[address] [facility] - 06:28:[address] [facility] CBC W/PLT COUNT & AUTO 2020-08-[address] [facility] - DIFFERENTIAL 06:28:[address] [facility] PROTHROMBIN TIME/INR 2020-08-[address] [facility] - 06:28:[address] [facility] APTT 2020-08-[address] [facility] - 06:28:[address] [facility] PHOSPHORUS 2020-08-[address] [facility] - 06:28:00 [facility] BILIRUBIN, TOTAL AND DIRECT 2020-08-[address] [facility] - 06:28:00 [facility] LACTATE DEHYDROGENASE (LDH) 2020-08-[address] [facility] - 06:28:00 Medical Center TYPE AND SCREEN, AUTOMATED 2020-08-[address] [facility] - 06:28:[address] [facility] POCT-GLUCOSE METER 2020-08-[address] [facility] - 06:01:[address] [facility] SARS-COV2/RT-PCR ([facility] & REF LABS) 2020-08-[address] [facility] - 11:42:[address] [facility] Central line insertion<sup>1</sup> 2016-08-23 [facility] 00:00:00 AV - Creation of arteriovenous 2015-08-23 [facility] 00:00:00 Procedure [facility] Plan of Care Planned Activity Planned Date Details Comments Source Future Scheduled 2023-08-[address] [facility] Test 00:00:00 (procedure) [code = Medical Center 96260792] Future Scheduled 2021-04-[address] [facility] - Test 00:00:00 (Season Ended) [code = [facility] INFLUENZA VACCINE (Season Ended)] Future Scheduled 2021-03-23 [facility] VACCINE [facility] 00:[facility]:00 [code = INFLUENZA VACCINE] Future Scheduled 2020 PNEUMOCOCCAL 65+ YRS [facility] - Test 00:00:00 (1 of 1 - [facility] [id number] [id number]) [code = PNEUMOCOCCAL 65+ YRS (1 of 1 - [id number] [id number])] Future Scheduled 2020-05-23 Medicare IPPE (WELCOME [facility]:00 TO MEDICARE) [code = Medical Center Medicare IPPE (WELCOME TO MEDICARE)] Future Scheduled 2010 [facility] for [facility] 00:00:00 malignant neoplasm of lung (procedure) [code = 111022212] Future Scheduled 2005 COLONOSCOPY SCREENING [facility] Test 00:00:00 [code = COLONOSCOPY SCREENING] Future Scheduled 2005 SHINGLES VACCINES (#1) [place] [facility] 00:00:00 [code = SHINGLES VACCINES (#1)] Future Scheduled 2005 SHINGLES VACCINES ([address] [facility] - Test 00:00:00 of 2) [code = SHINGLES Medic al Center VACCINES (1 of 2)] Future Scheduled 1974 DTAP/TDAP/TD VACCINES [facility] Test 00:00:00 (1 - Tdap) [code = Medical C enter DTAP/TDAP/TD VACCINES (1 - Tdap)] Future Scheduled 1973 Hepatitis C screening [place] [facility] 00:00:00 (procedure) [code = 876905338] Future Scheduled 1967 COVID-19 VACCINE (1) [place] [facility] [facility] 00:00:00 [code = COVID-19 VACCINE (1)] Future Scheduled 1967 COVID-19 VACCINE (1) [facility] - Test 00:00:00 [code = COVID-[address] VACCINE (1)] Future Scheduled 1965 DIABETES: RETINAL EYE [place] [facility] 00:00:00 EXAM [code = DIABETES: RETINAL EYE EXAM] Future Scheduled 1965 DIABETIC FOOT EXAM [place] [facility] 00:00:00 [code = DIABETIC FOOT EXAM] Future Scheduled 1961 65+ PNEUMOCOCCAL [facility] Test 00:00:00 VACCINE (1 of 4 - PCV13) [code = 65+ PNEUMOCOCCAL VACCINE (1 of 4 - PCV13)] Future Scheduled [address] [facility] Test 00:00:00 malignant neoplasm of Medica l Center colon (procedure) [code = 953780960] Encounters Start End Encounter Admission Attending Care Care Encounter Source Date/Time Date/Time Type Type Clinicians Facility Department ID 2021-02-12 2021-02-21 Inpatient MICHELLE [facility] [id number] [place] 00:00:00 00:00:00 BENITO [address] 2017-06-01 2017-06-01 Outpatient Rodolfo [facility] [id number] 10:06:00 15:45:00 Elder Broussard 2017-03-04 2017-03-04 Outpatient Derick Khan [facility] [id number] 14:12:00 18:25:00 02 2017-02-26 2017-02-26 Outpatient Rodolfo [facility] [id number] 06:00:00 12:27:00 Elder T 2017-02-24 2017-02-24 Outpatient Rodolfo, [id number]. [id number]. [id number] 10:49:00 23:59:00 Elder T [id number]. [id number] 3.615.36 5.36 Results Test Description Test Time Test Comments Results Result Comments Source Transthoracic Echocardiogram Complete, (w Contrast, St rain and 2021-02-20 17:07:06 3D if needed) Test Item Value Reference Range Interpretation Comme nts AoV Area, Vmax (test code = 3.91 cm2 5037040766) AoV Area, VTI (test code = 4483456510) 5.59 cm2 AoV Mean PG (test code = 0857473933) 0.02 mmHg AoV Peak PG (test code = 5967925395) 2.46 mmHg AoV Vmax (test code = 4161760713) 1.15 m/s AoV VTI (test code = 7735983953) 0.00 m Left Atrium Dimension Anterior (test 4.01 cm code = 4351356283) LV,d (test code = 4339954053) 5.45 cm LV EF,2D (test code = 6956692832) 52.20 % LV,s (test code = 6440425421) 4.26 cm LVOT area (test code = 7155401106) 3.11 cm2 LVOT Diam,S (test code = 5907573579) 1.99 cm LVOT Vmax (test code = 8271697188) 0.99 m/s LVOT VTI (test code = 1414073379) 0.19 m PV Pk Grad (test code = 0761214792) 5.07 mmHg PV VMAX (test code = 7279489842) 1.13 m/s RVOT Vmax (test code = 9574067010) 0.80 m/s MV E A ratio (test code = 3669836750) 0.89 MR Vmax (test code = 0720047758) 1.82 m/s E wave decelartion time (test code = 206.06 msec 5812997759) MV Peak A Elliott (test code = 4167237016) 0.91 m/s MV valve area p 1/2 method (test code 3.68 cm2 = 5463297723) MV Peak E Elliott (test code = 7529108363) 0.81 m/s MV stenosis pressure 1/2 time (test 59.76 ms code = 2961079988) LVOT stroke volume (test code = 0.59 cm3 8736674833) AV LVOT peak gradient (test code = 3.89 mmHg 6970240914) Ascending aorta (test code = 3.70 cm 3494225849) MV mean gradient (test code = 1.94 mmHg 6112125768) LV SYS VOL (test code = 4433724076) 81.23 ml LV COLE VOL (test code = 9102476638) 144.20 ml LA area s A4C (test code = 0631968873) 21.35 cm2 LV SV Teich 2D (test code = 62.97 ml 7506024035) LV Vol s Teich PSAX (test code = 81.23 ml 3116031798) MR peak grad (test code = 9817501651) 4.19 mmHg MV Vmax (test code = 7504208570) 1.02 m MV VTI Tips (test code = 7002000119) 0.29 m RVOT pk grad (test code = 9558950920) 2.57 mmHg AoV Vmn (test code = 5131450593) 0.06 LV FS Teich 2D (test code = 21.81 6052152044) MV AE ratio (test code = 9435471955) 1.12 LV FS Cube 2D (test code = 8455639292) 21.81 LVOT Vmn (test code = 5821364823) 0.75 Aov area Vmn (test code = 8744188959) 5.07 cm2 LVOT mean grad (test code = 2.50 mmHg 5023290469) MAX Pred HR (test code = 3506404382) 154.27 85 of MPHR (test code = 5686809366) 131.13 Calc MPHR (test code = 9566356438) 154.27 bpm LV SV Cube 2D (test code = 9278265700) 84.38 ml LV vol d cube 2D (test code = 161.67 ml 5930057709) LV vol s cube 2D (test code = 77.28 ml 1400054974) MV Decel slope (test code = 3.93 m/s2 1108795463) Pred Exer Dur R1 (test code = 7.83 6696808534) Pred METS R1 (test code = 6781457012) 8.14 LA Vol MOD A4C (test code = 60.41 ml 7164197288) Velocity Ratio (V1/V2) (test code = 0.86 m/s 4689) EF (test code = 8746703166) 43.67 % E/A ratio (test code = 6946274900) 0.89 LVOT VTI (CM) (test code = 2971454427) 19.00 cm YARI (test code = YARI) Left Ventricular ejection fraction is 40 - 45%. There is pericardial effusion. There is a small pericardial effusion localized near the right ventricle. The following segments are akinetic: apex. The following segments are hypokinetic: apical septal. Normal left ventricular size with mildly reduced systolic function and a distal septal and apical wall motion abnormality. Normal right sided chambers. Small localized pericardial effusion without evidence of tamponade. [facility] Thoracentesis With [id number] 13:26:53Hm Interface, Radiology Results 02/19/2021 1:29 PM CDT Ultrasound-guided Thoracentesis 02/19/2021re-Procedure Diagnosis: Pleural effusionPost-procedure Diagnosis: Pleural effusionOperator: Dayna IsraelPersonal protective equipment: Surgical Mask; Sterile Surgical Gown; Sterile Gloves; Lead Glasses.Sedation: None. 1% lidocaine local anesthesia.Estimate blood loss: <5 mL Blood administered: NoneComplications: NoneImplants/Grafts: NoneSpecimen: NoneProcedure:Informed consent was obtained and the patient positioned in a sittingposition in the ultrasound suite. A timeout was performed, followed by preliminary ultrasound of thechest. The back was prepped and draped in standard sterile fashion.Using real-time ultrasound guidance a 5-Estonian one-step centesis needle was advanced into the right thoracic cavity. An image was stored in the electronic medical record. Serous fluid was aspirated. At the end of the procedure the catheter was removed and a sterile dressing applied. The patient tolerated the procedure well. No complications.Findings:Large volume effusion.Impression:Successful ultrasound-guided right thoracentesis with removal of 1800 mL of fluid. [facility] Vw Ckmyugov3680-09-15 09:21:45Hm Interface, Radiology Results Incoming - 02/19/2021 9:24 AM CDT SINGLE VIEW CHEST, 02/19/2021linical History: Pleural effusion; status post thoracentesis.Technique: Portable AP chest.Comparison: 02/17/2021Impression:1.Interval right thoracentesis with complete evacuation of fluid. No pneumothorax.2.Small to moderate left effusion.3.Basilaratelectasis.4.Cardiomegaly with sequela of sternotomy.5.No overt edema. Normal central vasculature caliber for technique.6.Demineralized skeleton with left shoulder arthroplasty.[facility] [id number] 09:50:42 Test Item Value Reference Range Interpretation Comments Case number (test code = [id number]) Surgical pathology See link below for report (test code = PDF Lab Report 2255) Result status (test code This is Final Report = [id number]) for [id number] [facility] Wo Ixdrduko3483-80-22 02:44:34Hm Interface, Radiology Results Incoming - 02/18/2021 2:47 AM CDTFormatting of this note might be di fferent from the original.CT CHEST WO CONTRASTCLINICAL INDICATION: Abnormal xray - pleural effusionTECHNIQUE: Multidetector CT imaging of the chest was performed without intravenous contrast with multiplanar reconstructions. CT imaging was performed with iterative reconstruction technique and/or automated exposure control to reduce radiation dose.COMPARISON: 02/12/2021 IMPRESSION:The lack of intravenous contrast partially limits evaluation.Lungs and large airways: Moderate to large right pleural effusion and small left pleural effusion. Bibasilar atelectasis/scarring. Groundglass densities are seen in the pulmonary parenchyma with interlobular septal thickening, compatible with mild vascular congestion/edema. No pneumothorax. Trachea and mainstem bronchi are patent.In the left upper lobe, thereis a 0.7 cm nodule.Heart and pericardium: Mild to moderate cardiomegaly. Extensive coronary artery calcifications. Moderate aortic valve and mild to moderate mitral valve calcifications. Moderate pericardial effusion.Mediastinum and juwan: Arising from right lobe of the thyroid gland, there is a 1.4 cm hypodense nodule with some punctate calcifications, which could be better assessed with nonemergent dedicated thyroid ultrasound.Small hiatal hernia. Mildly patulous esophagus. Postoperative appearance of the gastroesophageal junction and stomach.Lymph nodes: Calcified left hilar lymph nodes are identified. Some prominent mediastinal lymph nodes, without adenopathy.Vasculature: Ascending aorta isaneurysmal, measuring up to 4.5 cm at the root. Mild atherosclerotic vascular calcifications are iden tified.Upper abdomen: Simple cyst is seen superior pole right kidney. Calcified granulomata are seen of the spleen. Diverticulosis is seen of large bowel.Bones: Again seen are multiple yqfnc-mgqdmqshyrjh-fjdid rib fractures. There is some associated mild pleural thickening.Mild degenerative change of the thoracolumbar spine. Hemangioma are seen of the lower cervical and thoracic spine.Soft tissues: Unremarkable.Summary:Congestive heart failure is seen with mild to moderate cardiomegaly, mild vascular congestion/edema, and moderate to large right and small left pleural effusion. The size of the effusions have both decreased compared with 02/12/2021.Moderate pericardial effusion is noted, similarto previous exam.A 0.7 cm nodule seen in the left upper lobe. 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 The cardiomediastinal silhouette is unchanged. A large left pleural effusion is nearly completely resolved following thoracentesis. There is no pneumothorax. There is improved aeration in the left lung base. A small right- sided pleural effusion with right basilar volume loss and/or consolidation is unchanged. The patient has undergone median sternotomy. Hardware from left shoulder arthroplasty is noted.[facility]-[id number] MethodistTransthoracic Echocardiogram Complete, (w Contrast, Strain and 3D if needed)2021-02-17 14:40:14 Test Item Value Reference Range Interpretation Comments Velocity Ratio (V1/V2) 0.55 m/s (test code = 4689) IVS,d (test code = 1.31 cm 1450631832) Ao root annulus (test 4.52 cm code = 6696852715) EF (test code = 51.16 % 3539488627) Ascending aorta (test 4.49 cm code = 2396151440) LVPWD,d (test code = 1.38 cm 7054189436) AoV Mean PG (test code 3.44 mmHg = 9963888631) AV LVOT peak gradient 1.87 mmHg (test code = 9937843767) MV valve area p 1/2 6.45 cm2 method (test code = 5175639605) PV Pk Grad (test code 3.64 mmHg = 0162767236) E/A ratio (test code = 0.59 5343542415) E wave decelartion 117.67 msec time (test code = 7615100549) LVOT Diam,S (test code 2.64 cm = 5912106494) LVOT area (test code = 5.47 cm2 2394396749) LVOT Vmax (test code = 0.68 m/s 6103460397) RVOT Vmax (test code = 0.83 m/s 4118738051) LVOT stroke volume 0.60 cm3 (test code = 2752653251) AoV Peak PG (test code 6.08 mmHg = 7958098148) MV Peak E Elliott (test 0.62 m/s code = 7673313408) MV stenosis pressure 34.12 ms 1/2 time (test code = 4889195647) MV Peak A Elliott (test 1.05 m/s code = 6327715347) Ao Root Diameter (test 4.10 cm code = 0434996322) AoV Area, Vmax (test 3.04 cm2 code = 8696733604) AoV Area, VTI (test 2.85 cm2 code = 3582793004) AoV Vmax (test code = 1.23 m/s 4082388863) IVS/LVPW,2D (test code 0.95 = 1991533708) Left Atrium Dimension 4.41 cm Anterior (test code = 5994424531) LV,d (test code = 4.97 cm 2431185428) LV,s (test code = 3.67 cm 4517761388) PV VMAX (test code = 0.95 m/s 0704904381) RVSP (TR) (test code = 25.97 mmHg 9516848434) TR Vpeak (test code = 2.00 mm/s 4810477655) MV E A ratio (test 0.59 code = 2209603539) RA pressure (test code 10.00 mmHg = 5100507875) TR pk grad (test code 15.97 mmHg = 6609009918) RVSP (test code = 25.97 mmHg 0318679525) Ao Root Diameter (test 4.10 cm code = 6837394554) LV SYS VOL (test code 56.84 ml = 0362707363) LV COLE VOL (test code 116.37 ml = 3338057608) LA area s A4C (test 32.56 cm2 code = 1827611539) LA Vol MOD A4C (test 126.80 ml code = 3775104937) LV SV Teich 2D (test 59.53 ml code = 6862845520) LV Vol s Teich PSAX 56.84 ml (test code = 0078418405) RVOT pk grad (test 2.73 mmHg code = 9432219842) AoV Vmn (test code = 0.88 0954362568) LA Ao Ratio Mmode 0.95 (test code = 5673569784) LV FS Cube 2D (test 26.18 code = 4082616213) LV FS Teich 2D (test 26.18 code = 5688625281) LVOT VTI (CM) (test 11.00 cm code = 3907801811) AoV VTI (test code = 0.22 m 3651442701) LV EF,2D (test code = 59.78 % 3504127093) LVOT VTI (test code = 0.11 m 5441197721) MV AE ratio (test code 1.71 = 2434635240) LVOT Vmn (test code = 0.41 8287603680) Aov area Vmn (test 2.55 cm2 code = 5258184241) LVOT mean grad (test 0.85 mmHg code = 2088997812) MAX Pred HR (test code 154.28 = 0958982489) 85 of MPHR (test code 131.14 = 4287363081) Calc MPHR (test code = 154.28 bpm 0376748839) LV SV Cube 2D (test 73.20 ml code = 3336417074) LV vol d cube 2D (test 122.45 ml code = 6066260532) LV vol s cube 2D (test 49.25 ml code = 0311167255) MV Decel slope (test 5.24 m/s2 code = 2982859374) Pred Exer Dur R1 (test 7.83 code = 3220369524) Pred METS R1 (test 8.14 code = 9221769964) ADD (test code = ADD) Addendum by Brenda Chavira MD on 02/21/2021 9:57 AM There is at least moderate pericardial effusion located circumferentially. Partial diastolic RV collapse noted. Moderate dilation of the ascening aorta that measures 4.5 cm. There is a pleural effusion present. The pleural effusion is large in size and is located in the left lateral region with collapsed lung. Left ventricular systolic function is moderately impaired. Left Ventricular ejection fraction is 30 - 35%. Anteroseptal severe hypokinesis. Spectral Doppler shows restrictive pattern of left ventricular diastolic filling. Elevated LV filling pressure. Recommend CT scan of the chest without contrast for further diffrerential diagnosis. YARI (test code = YARI) There is at least moderate pericardial effusion located circumferentially. Partial diastolic RV collapse noted. Moderate dilation of the ascening aorta that measures 4.5 cm. There is a pleural effusion present. The pleural effusion is large in size and is located in the left lateral region with collapsed lung. Left ventricular systolic function is moderately impaired. Left Ventricular ejection fraction is 30 - 35%. Anteroseptal severe hypokinesis. Spectral Doppler shows restrictive pattern of left ventricular diastolic filling. Elevated LV filling pressure. Recommend CT scan of the chest without contrast for further diffrerential diagnosis. 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 (test code = 77043-6) Whether the patient has symptoms related to condition of interest (test code = 09087-7) Patient was hospitalized because of this condition (test code = 86493-3) Whether the patient was admitted to intensive care unit (ICU) for condition of interest (test code = 54627-5) Whether patient resides in a congregate care setting (test code = 20904-1) Prepare RBC, 2 Ffscq8772-44-27 08:54:00 Test Item Value Reference Range Interpretation Comments Product name (test code Red Blood Cells -1, = 25) Leukored Unit number (test code [id number] = 2847244) Product code (test code U5935H63 = 3092) Dispense status (test Transfused code = 24) Blood expiration date (test code = 302) Blood type code (test 5100 code = 308) Blood type (test code = O POSITIVE 1314) Compatibility (test Compatible code = 6400) Jonh MethodistType and dnolra7149-33-71 22:28:00 Test Item Value Reference Range Interpretation Comments ABO grouping (test code = 883-9) O Rh type (test code = 40867-0) POS Antibody screen (gel) (test code = NEG 890-4) Jonh MethodistCytology (non-gynecological) ntsrnks3961-84-76 15:07:40 Test Item Value Reference Range Interpretation Comments Case number (test code = [id number]) Cytology See link below for (non-gynecological) PDF Lab Report report (test code = 1178) Result status (test code This is Final Report = [id number]) for [id number] Jonh MethodistECG 12 dvob3488-10-97 13:24:54 Test Item Value Reference Range Interpretation Comments Ventricular rate (test 76 code = 253) Atrial rate (test code 76 = 255) NC interval (test code 208 = 266) QRSD interval (test 120 code = 260) QT interval (test code 392 = 264) QTC interval (test 441 code = 265) P axis 1 (test code = 88 267) QRS axis 1 (test code -12 = 268) T wave axis (test code 78 = 270) EKG impression (test Normal sinus code = 273) rhythm-RSR' or QR pattern in V1 suggests right ventricular conduction delay-Inferior infarct (cited 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-2017)-Anterior infarct (cited 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-2017)-Abnormal ECG-In automated comparison with ECG of 05-AUG-2017 16:54,-RSR' pattern in V1 has replaced Right bundle branch block-Questionable change in initial forces of Anteroseptal leads- [facility]h [facility] sxfyazv9504-89-35 08:11:52 Test Item Value Reference Range Interpretation Comments Urine culture (test SEE COMMENT Bacteriu boubacar screen code = 4628844) negative. [facility] Preliminary Interpretation - Not an Iddgq6937-48-58 01:56:16Veronica Augustine MD 02/13/2021 3:05 [facility] ED Preliminary Interpretation - Not an OrderPerformed by: Veronica Augustine MDAuthorized by: Veronica Augustine MD ECG reviewed byED Physician in the absence of a eligibility technician: yes Previous ECG: Previous ECG: UnavailableInterpretation: Interpretation: non-specific Rate: ECG rate: 76 ECG rate assessment: normal Rhythm: Rhythm: sinus rhythm Ectopy: Ectopy: none QRS: QRS axis: Normal QRS intervals: NormalConduction: Conduction: normal ST segments: ST segments: Non-specificT waves: T waves: non-specifi cHouston MethodistRAD, CHEST, 1 VIEW, NON [id number] 13:19:00Reason for exam:->Post CT removalShould this be performed at the bedside?->Yes [facility] 1955 Sex: MFINAL REPORT RAD, CHEST, 1 VIEW, NON DEPT INDICATION: Post CT removal COMPARISON: Prior day's exam FINDINGS: Portable frontal view of the chest. IMPRESSION: Limited by underpenetration.Support Lines: Thoracostomy tube on the left has been removed. Lungs and pleura: Lungsremain hypoinflated. Small left effusion. Trace residual left pneumothorax. No pneumothorax.Heart and mediastinum: Stable contours. Stable surgical changes.Additional findings: None. Signed: JR Culver Robert MDReport Verified Date/Time: 08/19/2020 13:19:30 Reading Location: [facility] Radiology Reading Room XR chest 1 view portable / byuwnyq8887-52-52 13:19:00Interface, External Ris In - 08/19/2020 1:21 PM CSTFINAL REPORT RAD, CHEST, 1 VIEW, NON DEPT INDICATION: Post CT removal COMPARISON: Prior day's exam FINDINGS: Portable frontal view of the chest. IMPRESSION: Limited by underpenetration.Support Lines: Thoracostomy tube on the left has been removed. Lungs and pleura: Lungs remain hypoinflated. Small left effusion. Trace residual left pneumothorax. No pneumothorax.Heart and mediastinum: Stable contours. Stable surgical changes.Additional findings: None. Signed: JR Culver Robert MDReport Verified Date/Time: 08/19/202013:19:30 Reading Location: [facility] Radiology [facility] Dwflc1461-27-66 05:05:00 Test Item Value Reference Range Interpretation Comments Sodium (test code = 138 meq/L 689-725 6395-2) Potassium (test code = 3.9 meq/L 3.5-5.1 2823-3) Chloride (test code = 105 meq/L 98-107 2075-0) CO2 (test code = 22 meq/L 22-29 2028-9) BUN (test code = 49 mg/dL 7-21 H 3094-0) Creatinine (test code 6.96 mg/dL 0.57-1.25 H = 2160-0) Glucose (test code = 84 mg/dL 70-105 2345-7) Calcium (test code = 8.4 mg/dL 8.4-10.2 81560-9) EGFR (test code = 8 mL/min/1.73 [place] [address]-7) NOT ACCURATE CREATININE CLEARANCE IN PREDICTING GLOMERULAR FILTRATION RATE . ESTIMATED GFR I S NOT APPLICABLE FOR DIALYSIS PATIENTS. YARI (test code = YARI) Ride Attendant ID - EDASI Lab Interpretation Abnormal (test code = 84901-7) [facility] METABOLIC [id number] 05:05:00 Test Item Value Reference Range Interpretation [...] S NOT APPLICABLE FOR DIALYSIS PATIEN TS. Ride Attendant ID - [id number] 04:58:00 Test Item Value Reference Range Interpretation Comments Magnesium (test code = 2.1 mg/dL 1.6-2.6 07640-7) YARI (test code = YARI) Ride Attendant ID - EDASI Lab Interpretation (test Normal code = 54218-6) [facility]2020-[facility] 04:58:00 Test Item Value Reference Range Interpretation Comments Phosphorus (test code = 4.0 mg/dL 2.3-4.7 2777-1) YARI (test code = YARI) Ride Attendant ID - EDASI Lab Interpretation (test Normal code = 71952-7) [facility] CenterMAGN[facility]IUM2020-12-28 04:58:00 Test Item Value Reference Range Interpretation Comments MAGNESIUM (BEAKER) (test code = 2.1 mg/dL 1.6-2.6 627) Ride Attendant ID - [id number] 04:58:00 Test Item Value Reference Range Interpretation Comments PHOSPHORUS (BEAKER) (test code = 4.0 mg/dL 2.3-4.7 604) Ride Attendant ID - EDASICBC (Hemogram only)2020-08-19 04:37:00 Test Item Value Reference Range Interpretation Comments WBC (test code = 6690-2) 7.5 See_Comment [A utomated message] The system [employer] generated this result transmitted ref erence range: 3.5 - 10 .5 K/L. The refe rence range was not u sed to interpret this result as normal/abnor mal. RBC (test code = 789-8) 3.01 See_Comment L [Au tomated message] The system [employer] generated this result transmitted ref erence range: 4.63 - 6 .08 M/L. The refe rence range was not u sed to interpret this result as normal/abnor mal. MCHC (test code = 786-4) 31.5 See_Comment L [A utomated message] The system [employer] generated this result transmitted ref erence range: 32.3 - 3 6.5 GM/DL. The refe rence range was not u sed to interpret this result as normal/abnor mal. Hematocrit (test code = 27.9 % 40.1-51 L 4544-3) MCV (test code = 787-2) 92.7 fL 79-92.2 H MCH (test code = 785-6) 29.2 pg 25.7-32.2 RDW (test code = 788-0) 16.0 % 11.6-14.4 H Platelets (test code = 83 See_Comment L [Aut omated message] 777-3) The system [employer] generated this result transmitted ref erence range: 150 - 45 0 K/CU MM. The referen ce range was not u sed to interpret this result as normal/abnor mal. MPV (test code = 11.5 fL 9.4-12.4 20265-9) nRBC (test code = 413) 0 See_Comment [Aut omated message] The system [employer] generated this result transmitted ref erence range: 0 - 0 /1 00 WBC. The refere nce range was not u sed to interpret this result as normal/abnor mal. Lab Interpretation (test Abnormal code = 08983-2) [facility] (HEMOGRAM ONLY)2020-08-19 04:37:00 Test Item Value Reference [...] = 413) RAD, CHEST, 1 VIEW, NON [id number] 07:15:00Reason for exam:->chest tube [facility] : 1955 Sex: MFINAL REPORT [...] Santos Verified Date/Time: 08/18/2020 07:15:41 Reading Location: [address] Ortho Consult Reading Room BASIC METABOLIC [id number] 06:04:00 Test Item Value Reference Range Interpretation [...] 697) EGFR (BEAKER) (test 10 mL/min/1.73 ESTIMA RACHANA GFR IS code = 1092) sq m NOT ACCURATE CREATININE CLEARANCE IN PREDICTING GLOMERULAR FILTRATION RATE . ESTIMATED GFR I S NOT APPLICABLE FOR DIALYSIS PATIEN TS. Ride Attendant ID - [id number] 05:57:00 Test Item Value Reference Range Interpretation Comments MAGNESIUM (BEAKER) (test code = 2.1 mg/dL 1.6-2.6 627) Ride Attendant ID - RTZNBHXKWXSLJSF0823-56-64 05:57:00 Test Item Value Reference Range Interpretation Comments PHOSPHORUS (BEAKER) (test code = 3.4 mg/dL 2.3-4.7 604) Ride Attendant ID - EDASICBC (HEMOGRAM ONLY)2020-08-18 05:24:00 Test [...] 0-0 (test code = 413) Prepare Leuko-Red [id number] 23:54:00 Test Item Value Reference Range Interpretation Comments CROSSMATCH (test code = 2264) COMPATIBLE Unit ABO (test code = O Pos 6477886) UNIT NUMBER (test code = [id number] 934-0) Status (test code = 9340904) TX_TIMEINCHART Blood Bank Product (test code RED BLOOD CELLS = 2263) PRODUCT CODE (test code = U2985C93 933-2) [facility] [id number] 23:54:00 Test Item Value Reference Range Interpretation Comments Unit ABO (test code = 5949069) O Neg UNIT NUMBER (test code = [id number] 934-0) Status (test code = 5299535) [facility] Blood Bank Product (test code PLATELETS = 2263) PRODUCT CODE (test code = L3993K45 933-2) [facility] CenterPOC-Glucose [id number] 18:47:00 Test Item Value Reference Range Interpretation Comments POC-Glucose Meter (test 178 mg/dL 70-110 H : TE STED AT [facility] code = 1538) [address] [facility], 770 30: Ride Attendant/Techni radha ID = [id number] for Lexus Bynum Lab Interpretation (test Abnormal code = 41471-4) [facility] CenterPOCT-GLUCOSE [id number] 18:47:00 Test Item Value Reference Range Interpretation Comments POC-GLUCOSE METER 178 mg/dL 70-110 H : TESTED A T [facility] 6720 (BEAKER) (test code = [facility], 1538) 15472: Ride Attendant/Techni radha ID = [id number] for Lexus Oleary POCT-GLUCOSE [id number] 12:32:00 Test Item Value Reference Range Interpretation Comments POC-GLUCOSE METER 87 mg/dL 70-110 : TESTED A T [facility] 6720 (BEAKER) (test code = [facility], 1538) [address]: Ride Attendant/Techni radha ID = [id number] for JUDAH N, TANNER SARS-CoV2/RT-PCR (Asymptomatic ONLY)2020-08-17 10:34:00 Test Item Value Reference Range Interpretation Comments SARS-COV2/RT-PCR Negative Not Detected, (test code = Negative, See 37515-8) external report for linked test SARS-COV-2 [facility] PERFORMING LAB (test code = 08855-0) YARI (test code = Negative result for [...] of the Act. Fact Sheet for Healthcare Providers:https://www.[employer] idel.[facility]/sites/default/f jose/product/documents/F act_Sheet_HC_Providers_L hpt_SBIM-XpV-7.pdf Fact Sheet for Healthcare Patients:https://www.chad del.com/sites/default/fi les/product/documents/Fa ct_Sheet_Patients_Lyra_S ARS-CoV-2.pdf Performing Laboratory:[facility], [place] [address] [place], [place] [address]COV2/RT-PCR ([facility])2020-08-17 10:34:00 Test Item Value Reference Range Interpretation Comments SARS-COV2/RT-PCR (test Negative Not Detected, Negative, code = 4538064) See external report for linked test SARS-COV-2 PERFORMING LAB [facility] RAJAT (test code = 6472986) Negative result for this test determines that [...] 564(g) of the Act.Fact Sheet for Healthcare Providers:https://www.[employer].[facility]/sites/default/files/product/documents/Fact_Shee w_BJ_Xuychqiaq_Mhks_HMKP-OfL-0.pdfFact Sheet for Healthcare Patients:https://www.[employer].com/sites/default/files/product/ documents/Ymsr_Wqnau_Ajuxrofx_Vwed_UROZ-YlA-7.pdfPerforming Laboratory:[facility], [place] [address]EEN, CHEST, 1 VIEW, NON [id number] 09:48:00Reason for exam:->exam for possible CT removal [facility] : 1955 Sex: MFINAL REPORT [...] MDReport Verified Date/Time: 08/17/2020 09:48:57 Reading Location: [facility] C013Y CT Body Reading Room POCT-GLUCOSE [id number] 08:35:00 Test Item Value Reference Range Interpretation Comments POC-GLUCOSE METER 83 mg/dL 70-110 : TESTED A T [facility] 6720 (BEAKER) (test code = GABRIEL Nunez [facility], 1538) [address]: Ride Attendant/Techni radha ID = [id number] for Lexus Rodriguez BASIC METABOLIC [id number] 06:34:00 Test Item Value Reference Range Interpretation [...] 697) EGFR (BEAKER) (test 14 mL/min/1.73 ESTIMA RACHANA GFR IS code = 1092) sq m NOT ACCURATE CREATININE CLEARANCE IN PREDICTING GLOMERULAR FILTRATION RATE . ESTIMATED GFR I S NOT APPLICABLE FOR DIALYSIS PATIEN TS. Ride Attendant ID - [id number] 06:33:00 Test Item Value Reference Range Interpretation Comments MAGNESIUM (BEAKER) (test code = 1.9 mg/dL 1.6-2.6 627) Ride Attendant ID - MZELPBQFHSPXHKL4711-42-79 06:33:00 Test Item Value Reference Range Interpretation Comments PHOSPHORUS (BEAKER) (test code = 2.9 mg/dL 2.3-4.7 604) Ride Attendant ID - EDASICBC (HEMOGRAM ONLY)2020-08-17 06:05:00 Test [...] WBC 0-0 (test code = 413) POCT-GLUCOSE [id number] 21:02:00 Test Item Value Reference Range Interpretation Comments POC-GLUCOSE METER 206 mg/dL 70-110 H : [facility] (BEAKER) (test code = G[place]EL [place], 1538) [address]: Ride Attendant/Techni radha ID = [id number] for KIMMIE FONTENOT HEMODIALYSIS [id number] 18:27:53Ramon Carrillo RN 08/16/2020 6:30 PM - [...] (H) 08/16/2020 'Ramon BENITEZ, RN II7S6- Adult Barwhywf853 [facility] 6760[facility]-GLUCOSE METER 2020-08-16 17:09:00 Test Item Value Reference Range Interpretation Comments POC-GLUCOSE METER 96 mg/dL 70-110 : TESTED A T [facility] 6720 (BEAKER) (test code = [facility], 1538) 379[address]: Ride Attendant/Techni radha ID = [id number] for Ramon Mena POCT-GLUCOSE [id number] 12:35:00 Test Item Value Reference Range Interpretation Comments POC-GLUCOSE METER 107 mg/dL 70-110 : TESTED A T [facility] 6720 (BEAKER) (test code = [facility], 1538) 264[address]: Ride Attendant/Techni radha ID = [id number] for JONATHAN AARON POCT-GLUCOSE [id number] 08:06:00 Test Item Value Reference Range Interpretation Comments POC-GLUCOSE METER 81 mg/dL 70-110 : TESTED A T [facility] 6720 (BEAKER) (test code = [facility], 1538) [address]: Ride Attendant/Techni radha ID = [id number] for JONATHAN HAYES BASIC METABOLIC [id number] 04:53:00 Test Item Value Reference Range Interpretation [...] S NOT APPLICABLE FOR DIALYSIS PATIEN TS. Ride Attendant ID - TRIEKRFFHGRYRU0354-31-25 04:48:00 Test Item Value Reference Range Interpretation Comments MAGNESIUM (BEAKER) (test code = 2.0 mg/dL 1.6-2.6 627) Ride Attendant ID - [id number] 04:48:00 Test Item Value Reference Range Interpretation Comments PHOSPHORUS (BEAKER) (test code = 3.3 mg/dL 2.3-4.7 604) Ride Attendant ID - EDASICalcium, Bmgaaid9169-10-65 04:25:00 Test Item Value Reference Range Interpretation Comments Calcium, Ion (test code = 1994-3) 1.12 mmol/L 1.12-1.27 pH, Blood (test code = 45599-1) 7.42 [facility] CenterCALCIUM, [id number] 04:25:00 Test Item Value Reference Range Interpretation [...] = 413) RAD, CHEST, 1 VIEW, NON [id number] 04:20:00while patient is intubated or has chest tubes.Reason for exam:->Status post CV SurgeryShould thisbe performed at the bedside?->Yes [facility] 1955 Sex: MFINAL [...] Eldridge MDReport Verified Date/Time: 08/16/2020 04:20:29 POCT-GLUCOSE [id number] 20:54:00 Test Item Value Reference Range Interpretation Comments POC-GLUCOSE METER 115 mg/dL 70-110 H : TESTED A T [facility] 6720 (BEAKER) (test code = [place]ABRIEL Nune[place], 1538) [address]: Ride Attendant/Techni radha ID = [id number] for RO CHARLESKIMMIE U/S, [id number] 15:25:00Right pleural effusionReason for exam:- >right pleural effusion [facility] : 1955 Sex: MFINAL REPORT Ultrasound guided right thoracentesis. Clinical History: Right pleural effusion. Modality: Ultrasound. Sedation: None. Rubbing Bed Operator: Kamilla Marte PA-C Layer Off: None. Estimated Blood Loss: 1cc Specimen: 1200 [...] uncomplicated ultrasound guided right thoracentesis. Signed: Ashlyn [facility]oyprov[facility] Verified Date/Time: 08/15/2020 15:25:50 Reading Location: [address] Ultrasound Reading Room US [id number] 15:25:00Interface, External Ris In - 08/15/2020 3:28 PM CSTFINAL REPORT Ultrasound guided right thoracentesis. Clinical History: Right pleural effusion. Modality: Ultrasound. Sedation: None. Rubbing Bed Operator: Kamilla Marte PA-C Layer Off: None. Estimated Blood Loss: 1cc Specimen: 1200 [...] Leroy Verified Date/Time: 08/15/2020 15:25:50 Reading Location: [address] Ultrasound [facility] [id number] 15:12:00 Test Item Value Reference Range Interpretation Comments POC-GLUCOSE METER 92 mg/dL 70-110 : TESTED A T [facility] 6720 (SILVANA) (test code = [place], 1538) [address]: Ride Attendant/Techni radha ID = [id number] for AlfonsoLexus chau RAD, CHEST, 1 VIEW, NON [id number] 14:46:00Reason for exam:->s/p right thoraShould this be performed at the bedside?->YesU/S rm 1 [facility] : 1955 Sex: MFINAL REPORT [...] MDReport Verified Date/Time: 08/15/2020 14:46:15 Reading Location: [facility] Radiology Reading Room POCT- GLUCOSE [id number] 12:27:00 Test Item Value Reference Range Interpretation Comments POC-GLUCOSE METER 118 mg/dL 70-110 H : TESTED A T [facility] 6720 (BEAKER) (test code = [place], 1538) [address]: Ride Attendant/Techni radha ID = [id number] for Lexus Oleary Anti-Nuclear Antibody (MISSAEL)2020-08-15 10:57:00 Test Item Value Reference Range Interpretation Comments MISSAEL (test code = 28572-6) Positive Negative A YARI (test code = YARI) Test performed by IFA method. Lab Interpretation (test Abnormal code = 93856-8) [facility] CenterANA Titer & [id number] 10:57:00 Test Item Value Reference Range Interpretation Comments MISSAEL Titer (test code = 43127-3) 1:160 MISSAEL Pattern (test code = 1781) Homogeneous [facility] CenterANTI-NUCLEAR ANTIBODY (MISSAEL)2020-08-15 10:57:00 Test Item Value Reference Range Interpretation Comments ANTI-NUCLEAR ANTIBODY (MISSAEL) (BEAKER) Positive Negative A (test code = 418) Test performed by IFA method.MISSAEL TITER AND [id number] 10:57:00 Test Item Value Reference Range Interpretation Comments MISSAEL TITER (BEAKER) (test code = :160 1541) MISSAEL PATTERN (BEAKER) (test code = Homogeneous 1781) PT/[id number] 09:56:00 Test Item Value Reference Interpretation Comments Range Protime (test code = 14.9 See_Comment H [Autom ated 5902-2) message] The system which generated this result transmitted reference range : 11.9 - 14.2 seconds. The reference range was not used to interpret this result as normal/abnormal . INR (test code = 1.21 See_Comment [Automated 8481-6) message] The system which generated this result transmitted reference range : <=5.90. The reference range was not used to interpret this result as normal/abnormal . PTT (test code = 27.4 See_Comment [Automated 81940-6) message] The system which generated this result transmitted reference range : 22.5 - 36.0 seconds. The reference range was not used to interpret this result as normal/abnormal . YARI (test code = Effective 01/18/2019: YARI) PT Reference Range ChangeNew: 11.9-14.2 Previous: 11.7-14.7 RECOMMENDED COUMADIN/WARFARIN INR THERAPY RANGESSTANDARD DOSE: 2.0-3.0 Includes: PROPHYLAXIS for venous thrombosis, systemic embolization; TREATMENT for venous thrombosis and/or pulmonary embolus.HIGH RISK: Target INR is 2.5-3.5 for patients wiht mechanical heart valves. Lab Interpretation Abnormal (test code = 29742-2) [facility] CenterPT/[id number] 09:56:00 Test Item Value Reference Range Interpretation [...] is2.5-3.5 for patients wiht mechanical heart valves.POCT-GLUCOSE [id number] 07:56:00 Test Item Value Reference Range Interpretation Comments POC-GLUCOSE METER 102 mg/dL 70-110 : TESTED A T [facility] 6720 (BEAKER) (test code = [place], 1538) [address]: Ride Attendant/Techni radha ID = [id number] for OR JONATHAN ZAYAS BASIC METABOLIC [id number] 06:11:00 Test Item Value Reference Range Interpretation [...] 697) EGFR (BEAKER) (test 13 mL/min/1.73 ESTIMA RACHANA GFR IS code = 1092) sq m NOT ACCURATE CREATININE CLEARANCE IN PREDICTING GLOMERULAR FILTRATION RATE . ESTIMATED GFR I S NOT APPLICABLE FOR DIALYSIS PATIEN TS. Ride Attendant ID - FREDERIC [id number] 06:10:00 Test Item Value Reference Range Interpretation Comments MAGNESIUM (BEAKER) (test code = 1.9 mg/dL 1.6-2.6 627) Ride Attendant ID - FREDERIC [id number] 06:10:00 Test Item Value Reference Range Interpretation Comments PHOSPHORUS (BEAKER) (test code = 3.2 mg/dL 2.3-4.7 604) Ride Attendant ID - FREDERIC MCBC (HEMOGRAM ONLY)2020-08-15 05:14:00 [...] = 413) RAD, CHEST, 1 VIEW, NON [id number] 04:34:00while patient is intubated or has chest tubes.Reason for exam:->Status post CV SurgeryShould thisbe performed at the bedside?->Yes [facility] : 1955 Sex: MFINAL REPORT [...] Dane Lopez Verified Date/Time: 08/15/2020 04:34:57 IUM, [id number] 03:56:00 Test Item Value Reference Range Interpretation Comments CALCIUM IONIZED (BEAKER) (test 1.08 mmol/L 1.12-1.27 L code = 698) PH, BLOOD (BEAKER) (test code = 7.42 1810) Prepare [id number] 23:54:00 Test Item Value Reference Range Interpretation Comments CROSSMATCH (test code = 2264) COMPATIBLE Unit ABO (test code = O Pos 0003751) UNIT NUMBER (test code = [id number] 934-0) Status (test code = 7119016) TX_TIMEINCHART Blood Bank Product (test code RED BLOOD CELLS = 2263) PRODUCT CODE (test code = D4273S08 933-2) [facility] CenterPrepare [id number] 23:54:00 Test Item Value Reference Range Interpretation Comments Unit ABO (test code = 8896908) O Pos UNIT NUMBER (test code = [id number] 934-0) Status (test code = 2326023) TX_TIMEINCHART Blood Bank Product (test code FFP = 2263) PRODUCT CODE (test code = Z5113C87 933-2) [facility] CenterPrepare [id number] 23:54:00 Test Item Value Reference Range Interpretation Comments Unit ABO (test code = 5259119) O Neg UNIT NUMBER (test code = [id number] 934-0) Status (test code = 4590776) TX_TIMEINCHART Blood Bank Product (test code PLATELETS = 2263) PRODUCT CODE (test code = F4506M35 933-2) [facility] CenterU/S, ABDOMINAL, [id number] 11:53:00Abdomen limited area? Add comment if clarification is needed.->Right upper quadrantReason for exam:->Thrombocytopenia - evaluate for cirrhosis and/or splenemegalyCH[facility] : 1955 Sex: MFINAL [...] MDReport Verified Date/Time: 08/14 11:53:09 US abdomen [id number] 11:53:00Interface, External Ris In - 08/14/2020 11:55 [...] can be seen with fasting. Signed:Shae Aleman MDReport Verified Date/Time: 08/14/2020 11:53:09 [facility], [id number] 10:46:00 Test Item Value Reference Range Interpretation Comments O2 Saturation (Measured) (test code = 92.4 % 24370-6) [facility] CenterOXYGEN SATURATION, [id number] 10:46:00 Test Item Value Reference Range Interpretation Comments O2 SATURATION (MEASURED) (BEAKER) 92.4 % (test code = 1455) Hemoglobin [id number] 08:35:00 Test Item Value Reference Range Interpretation Comments Hemoglobin A1C (test code = 4548-4) 5.4 % 4.3-6.1 Lab Interpretation (test code = Normal 78504-2) [facility] CenterHEMOGLOBIN [id number] 08:35:00 Test Item Value Reference Range Interpretation Comments HEMOGLOBIN A1C (BEAKER) (test code = 5.4 % 4.3-6.1 368) POCT-GLUCOSE [id number] 06:18:00 Test Item Value Reference Range Interpretation Comments POC-GLUCOSE METER 133 mg/dL 70-110 H : TESTED A T [facility] 6720 (BEAKER) (test code = [place], 1538) [address]: Ride Attendant/Techni radha ID = [id number] for BRIELLE LEIVA Hepatitis C [id number] 05:53:00 Test Item Value Reference Range Interpretation Comments Hepatitis C Ab (test Nonreactive Nonreactive code = 81262-3) YARI (test code = YARI) Ride Attendant ID - FREDERIC Damon Lab Interpretation (test Normal code = 68309-4) [facility] CenterHepatitis B [id number] 05:53:00 Test Item Value Reference Range Interpretation Comments Hep B Core Total Ab Nonreactive Nonreactive (test code = 30495-1) Hep B S Ab (test 747.6 See_Comment H [Automated code = 06092-7) message] The system which generated this result transmitted reference range : <8.0 mIU/mL. Th e reference range was not used to interpret this result as normal/abnormal . HBsAg Screen (test Nonreactive Nonreactive code = 5195-3) YARI (test code = Ride Attendant ID - YARI) FREDERIC M Lab Interpretation Abnormal (test code = 34039-4) [facility] CenterHIV-1 Antigen with HIV-1/2 [id number] 05:53:00 Test Item Value Reference Range Interpretation Comments HIV-1 Antigen with HIV Nonreactive Nonreactive 1&2 Antibody (test code = 00574-8) YARI (test code = YARI) Ride Attendant ID - FREDERIC M Lab Interpretation (test Normal code = 57254-5) [facility] CenterHEPATITIS C [id number] 05:53:00 Test Item Value Reference Range Interpretation Comments HEPATITIS C ANTIBODY (BEAKER) Nonreactive Nonreactive (test code = 367) Ride Attendant ID - FREDERIC MHEPATITIS B [id number] 05:53:00 Test Item Value Reference Range Interpretation Comments HEPATITIS B CORE TOTAL ANTIBODY Nonreactive Nonreactive (BEAKER) (test code = 497) HEPATITIS B SURFACE ANTIBODY 747.6 mIU/mL <8.0 H (BEAKER) (test code = 647) HEPATITIS B SURFACE ANTIGEN (2) Nonreactive Nonreactive (BEAKER) (test code = 2585) Ride Attendant ID - FREDERIC MHIV-1 ANTIGEN WITH HIV-1/2 [id number] 05:53:00 Test Item Value Reference Range Interpretation Comments HIV-1 ANTIGEN WITH HIV 1\\T\\2 Nonreactive Nonreactive ANTIBODY (2) (BEAKER) (test code = 2586) Ride Attendant ID - FREDERIC MBASIC METABOLIC [id number] 04:55:00 Test Item Value Reference Range Interpretation [...] 697) EGFR (BEAKER) (test 11 mL/min/1.73 ESTIMA RACHANA GFR IS code = 1092) sq m NOT ACCURATE CREATININE CLEARANCE IN PREDICTING GLOMERULAR FILTRATION RATE . ESTIMATED GFR I S NOT APPLICABLE FOR DIALYSIS PATIEN TS. Ride Attendant MALLIKA DE LA GARZA MLipid [id number] 04:39:00 Test Item Value Reference Range Interpretation Comments Triglycerides (test 96 mg/dL code = 2571-8) Cholesterol (test code 79 mg/dL = 2093-3) HDL (test code = 23 mg/dL 5-9) LDL Calculated (test 37 mg/dL code = 24614-1) YARI (test code = YARI) Triglyceride Reference Range: Low Risk <150 Borderline 150-199 High Risk 200-499 Very High Risk >=500 Cholesterol Reference Range: Low Risk <200 Borderline 200-239 High Risk >240 HDL Cholesterol Reference Range: Low Risk >=60 High Risk <40 LDL Cholesterol Reference Range: Optimal <100 Near Optimal 100-129 Borderline 130-159 High 160-189 Very High >=190 Ride Attendant MALLIKA Lawrence FREDERIC Damon [facility] CenterMAGNESIUM2020-12-23 04:39:00 Test Item Value Reference Range Interpretation Comments MAGNESIUM (BEAKER) (test code = 1.9 mg/dL 1.6-2.6 627) Ride Attendant MALLIKA DE LA GARZA [id number] 04:39:00 Test Item Value Reference Range Interpretation Comments PHOSPHORUS (BEAKER) (test code = 4.5 mg/dL 2.3-4.7 604) Ride Attendant MALLIKA DE LA GARZA MLIPID [id number] 04:39:00 Test Item Value Reference Range Interpretation [...] Borderline 130-159 High 160-189 Very High >=190 Ride Attendant ID - FREDERIC MRAD, CHEST, 1 VIEW, NON [id number] 04:33:00 while patient is intubated or has chest tubes.Reason for exam:->Status post CV SurgeryShould thisbe performed at the bedside?->Yes [facility] : 1955 Sex: MFINAL REPORT [...] MDReport Verified Date/Time: 08/14/2020 04:33:06 Blood gas, [id number] 04:21:00 Test Item Value Reference Range Interpretation Comments pH, Arterial (test code 7.40 7.35-7.45 = 2744-1) pCO2, Arterial (test 48 See_Comment H [Autom ated message] code = 2019-8) The system [facility] generated this result transmit rachana reference range : 35 - 45 mm Hg. The reference range was not used to interpret this result as normal/abnormal . pO2, Arterial (test 121 See_Comment H [Automa rachana message] code = 2703-7) The system [facility] generated this result transmit rachana reference range : 80 - 90 mm Hg. The reference range was not used to interpret this result as normal/abnormal . O2 Sat, Arterial (test 98.4 % 96-97 H code = 2708-6) HCO3, Arterial (test 29 mmol/L -29 code = 1960-4) Base Excess, Arterial 3.7 mmol/L -2-3 H (test code = 1925-7) Patient Temperature 36.9 (test code = 8310-5) FIO2 (test code = 1819) 36 Lab Interpretation Abnormal (test code = 14873-8) [facility] CenterBLOOD GAS, [id number] 04:21:00 Test Item Value Reference Range Interpretation Comments PH ARTERIAL (BEAKER) (test code = 7.40 7.35-7.45 383) PCO2 ARTERIAL (BEAKER) (test code 48 mm Hg 35-45 H = 384) PO2 ARTERIAL (BEAKER) (test code = 121 mm Hg 80-90 H 385) O2 SATURATION ARTERIAL (BEAKER) 98.4 % 96.0-97.0 H (test code = 386) HCO3 ARTERIAL (BEAKER) (test code 29 mmol/L - = 388) BASE EXCESS ARTERIAL (BEAKER) 3.7 mmol/L -2.0-3.0 H (test code = 387) PATIENT TEMPERATURE (BEAKER) (test 36.9 code = 1818) FIO2 (BEAKER) (test code = 1819) 36.0 CALCIUM, [id number] 04:14:00 Test Item Value Reference Range Interpretation [...] WBC 0-0 (test code = 413) POCT-GLUCOSE [id number] 00:43:00 Test Item Value Reference Range Interpretation Comments POC-GLUCOSE METER 129 mg/dL 70-110 H [facility] ([facility] (test code = [place], 1538) [address]: Ride Attendant/Techni radha ID = [id number] for BRIELLE LEIVA Lactic Acid, [id number] 19:57:00 Test Item Value Reference Range Interpretation Comments Lactate, Art (test code = 1.1 mmol/L 0.5-2.2 2873) YARI (test code = YARI) Ride Attendant ID - BS Lab Interpretation (test Normal code = 63194-4) [facility] CenterLACTIC ACID, [id number] 19:57:00 Test Item Value Reference Range Interpretation Comments LACTATE BLOOD ARTERIAL (2) 1.1 mmol/L 0.5-2.2 (BEAKER) (test code = 2874) Ride Attendant ID - BSHGB/HCT (H&H)-Stat [id number] 19:47:00 Test Item Value Reference Range Interpretation Comments Hemoglobin (test code = 9.2 See_Comment L [Au tomated message] 786-4) The system [employer] generated this result transmitted ref erence range: 13.0 - 1 6.8 GM/DL. The refe rence range was not u sed to interpret this result as normal/abnor mal. Hematocrit (test code = 27.0 % 40-50 L 4544-3) Lab Interpretation (test Abnormal code = 49389-6) [facility] CenterGlucose-Stat [id number] 19:47:00 Test Item Value Reference Range Interpretation Comments Glucose (test code = 2345-7) 146 mg/dL 70-110 H Lab Interpretation (test code = Abnormal 67794-4) [facility] [id number] 19:47:00 Test Item Value Reference Range Interpretation Comments Sodium (test code = 2951-2) 141 meq/L 136-145 Lab Interpretation (test code = Normal 12997-7) [facility] CenterPotassium-Stat [id number] 19:47:00 Test Item Value Reference Range Interpretation Comments Potassium (test code = 2823-3) 3.9 meq/L 3.6-5.5 Lab Interpretation (test code = Normal 73004-4) [facility]OD[facility] NA-STAT [id number] 19:47:00 Test Item Value Reference Range Interpretation Comments SODIUM (BEAKER) (test code = 381) 141 meq/L 136-145 POTASSIUM-STAT [id number] 19:47:00 Test Item Value Reference Range Interpretation Comments POTASSIUM (BEAKER) (test code = 3.9 meq/L 3.6-5.5 379) BLOOD GAS, [id number] 19:47:00 Test Item Value Reference Range Interpretation [...] (BEAKER) (test code = 1819) 40.0 GLUCOSE-STAT [id number] 19:47:00 Test Item Value Reference Range Interpretation Comments GLUCOSE RANDOM (BEAKER) (test code 146 mg/dL 70-110 H = 652) HGB/HCT (H&H) - STAT [id number] 19:47:00 Test Item Value Reference Range Interpretation Comments HEMOGLOBIN (BEAKER) (test code = 9.2 GM/DL 13.0-16.8 L 410) HEMATOCRIT (BEAKER) (test code = 27.0 % 40.0-50.0 L 411) Hepatitis B surface [id number] 19:30:00 Test Item Value Reference Range Interpretation Comments HBsAg Screen (test code Nonreactive Nonreactive = 5195-3) YARI (test code = YARI) Specimen is considered negative for HBsAg. Lab Interpretation (test Normal code = 54487-6) [facility]AT[facility] SUR[facility] [id number] 19:30:00 Test Item Value Reference Range Interpretation Comments HEPATITIS B SURFACE ANTIGEN (2) Nonreactive Nonreactive (BEAKER) (test code = 2585) Specimen is considered negative for HBsAg.Thromboelastograph (TEG)2020-08-13 18:10:00 Test Item Value Reference Range Interpretation Comments TEG Activated Clotting 7.8 See_Comment H [Aut omated message] Time (test code = The system which 52506-5) generated this result transmitted ref erence range: 4.0 - 7. 0 minutes. The reference range was not used to int erpret this result as normal/abnormal . TEG Fibrinogen Activity 58.1 See_Comment L [Au tomated message] (test code = 08483-8) The sy stem which generated this result transmitted ref erence range: 61.0 - 7 3.0 degrees. The reference range was not used to int erpret this result as normal/abnormal . TEG Platelet Aggregation 49.3 See_Comment L [A utomated message] (test code = 00907-8) The sy stem which generated this result transmitted ref erence range: 55.0 - 6 5.0 MM. The referen ce range was not u sed to interpret this result as normal/abnor mal. TEG Fibrinolysis (test 0.5 % 0-5 code = 99848-9) TEG-H Activated Clotting 8.1 See_Comment H [A utomated message] Time (test code = 1411) The system which generated this result transmitted ref erence range: 4.0 - 7. 0 minutes. The reference range was not used to int erpret this result as normal/abnormal . TEG-H Fibrinogen 64.7 See_Comment [Automated message] Activity (test code = The sy stem which 1412) generated this result transmitted ref erence range: 61.0 - 7 3.0 degrees. The reference range was not used to int erpret this result as normal/abnormal . TEG-H Platelet 53.8 See_Comment L [Automated m essage] Aggregation (test code = The system which 1413) generated this result transmitted ref erence range: 55.0 - 6 5.0 MM. The referen ce range was not u sed to interpret this result as normal/abnor mal. TEG-H Fibrinolysis (test 0.0 % 0-5 code = 1414) Lab Interpretation (test Abnormal code = 47697-4) [facility]THROMBOELASTOGRAPH (TEG)2020-08-13 18:10:00 Test Item Value [...] % 0.0-5.0 code = 1414) BLOOD GAS, [id number] 16:26:00 Test Item Value Reference Range Interpretation [...] (BEAKER) (test code = 1819) 50.0 GLUCOSE-STAT [id number] 16:26:00 Test Item Value Reference Range Interpretation Comments GLUCOSE RANDOM (BEAKER) (test code 165 mg/dL 70-110 H = 652) HGB/HCT (H&H) - STAT [id number] 16:26:00 Test Item Value Reference Range Interpretation Comments HEMOGLOBIN (BEAKER) (test code = 9.6 GM/DL 13.0-16.8 L 410) HEMATOCRIT (BEAKER) (test code = 28.0 % 40.0-50.0 L 411) SODIUM NA-STAT [id number] 16:25:00 Test Item Value Reference Range Interpretation Comments SODIUM (BEAKER) (test code = 381) 143 meq/L 136-145 POTASSIUM-STAT [id number] 16:25:00 Test Item Value Reference Range Interpretation Comments POTASSIUM (BEAKER) (test code = 3.6 meq/L 3.6-5.5 379) RAD, CHEST, 1 VIEW, NON [id number] 15:39:00Reason for exam:->pleural effusions/p intubation Should this be performed at the bedside?->Yes [facility] 1955 Sex: MFINAL REPORT RAD, CHEST, 1 VIEW, NON DEPT INDICATION: pleural effusion COMPARISON: 1 hour prior FINDINGS: Portable frontal view of the chest. IMPRESSION: Support Lines: Stable. Lungs and pleura: Stable effusion on the right. No pneumothorax.Heart and mediastinum: Stablecontours. Stable surgical changes.Additional findings: None. Signed: JR Culver Robert MDReport Verified Date/Time: 08/13/2020 15:39:40 Reading Location: [facility] Radiology Reading Room [id number] 15:02:00 Test Item Value Reference Range Interpretation [...] is2.5-3.5 for patients wiht mechanical heart valves.Prothrombin time/[id number] 15:01:00 Test Item Value Reference Interpretation Comments Range Protime (test code = 16.5 See_Comment H [Autom ated 5902-2) message] The system which generated this result transmitted reference range : 11.9 - 14.2 seconds. The reference range was not used to interpret this result as normal/abnormal . INR (test code = 1.37 See_Comment [Automated 6301-6) message] The system which generated this result transmitted reference range : <=5.90. The reference range was not used to interpret this result as normal/abnormal . YARI (test code = Effective 01/18/2019: YARI) PT Reference Range ChangeNew: 11.9-14.2 Previous: 11.7-14.7 RECOMMENDED COUMADIN/WARFARIN INR THERAPY RANGESSTANDARD DOSE: 2.0-3.0 Includes: PROPHYLAXIS for venous thrombosis, systemic embolization; TREATMENT for venous thrombosis and/or pulmonary embolus.HIGH RISK: Target INR is 2.5-3.5 for patients wiht mechanical heart valves. Lab Interpretation Abnormal (test code = 22617-3) [facility] CenterPROTHROMBIN TIME/[id number] 15:01:00 Test Item Value Reference Range Interpretation [...] is2.5-3.5 for patients wiht mechanical heart valves.CALCIUM, [id number] 14:59:00 Test Item Value Reference Range Interpretation Comments CALCIUM IONIZED (BEAKER) (test 1.26 mmol/L 1.12-1.27 code = 698) PH, BLOOD (BEAKER) (test code = 7.54 1810) OXYGEN SATURATION, [id number] 14:57:00 Test Item Value Reference Range Interpretation Comments O2 SATURATION (MEASURED) (BEAKER) 94.2 % (test code = 1455) Comprehensive metabolic [id number] 14:18:00 Test Item Value Reference Range Interpretation Comments Protein, Total (test 5.1 See_Comment L Specime n slightly code = 2885-2) hemolyzed [Automated message] The system which generated this result transmit rachana reference range : 6.0 - 8.3 gm/dL . The reference range was not u sed to interpret th is result as normal/abnormal . Albumin (test code = 3.0 g/dL 3.5-5 L Specime n slightly 50351-3) hemolyzed Alkaline Phosphatase 65 U/L 40-150 (test code = 6768-6) Total Bilirubin (test 1.0 mg/dL 0.2-1.2 Specim en slightly code = 1974-2) hemolyzed Sodium (test code = 145 meq/L 966-501 7508-2) Potassium (test code 3.9 meq/L 3.5-5.1 Specime [...] 10.4 mg/dL 8.4-10.2 H Discord ant CALCIUM 11834-9) result compared to previous result ; clinical correlation required. AST (test code = 24 U/L 5-34 Specimen sl ightly 1920-8) hemolyzed ALT (test code = 13 U/L 6-55 Specimen sl ightly 1742-6) hemolyzed EGFR (test code = 13 mL/min/1.73 [place] [address]-6) NOT ACCURATE CREATININE CLEARANCE IN PREDICTING GLOMERULAR FILTRATION RATE . ESTIMATED GFR I S NOT APPLICABLE FOR DIALYSIS PATIEN TS. YARI (test code = YARI) Ride Attendant ID - RM Lab Interpretation Abnormal (test code = 03749-5) [facility] CenterCOMPREHENSIVE METABOLIC [id number] 14:18:00 Test Item Value Reference Range Interpretation [...] hemolyzed EGFR (BEAKER) (test 13 mL/min/1.73 ESTIMA RACHANA GFR IS NOT code = 1092) sq m ACCURATE CREATININE LOUIS ROSANNE IN PREDICTING GLOMERULAR FILTRATION RATE . ESTIMATED GFR I S NOT APPLICABLE FOR DIALYSIS PATIEN TS. Ride Attendant ID - [id number] 14:15:00 Test Item Value Reference Range Interpretation Comments MAGNESIUM (BEAKER) 1.9 mg/dL 1.6-2.6 Specimen slightly (test code = 627) hemolyzed Ride Attendant ID - [id number] 14:15:00 Test Item Value Reference Range Interpretation Comments PHOSPHORUS (BEAKER) 3.0 mg/dL 2.3-4.7 Specimen slightly (test code = 604) hemolyzed Ride Attendant ID - RMBLOOD GAS, [id number] 14:12:00 Test Item Value Reference Range Interpretation [...] (BEAKER) (test code = 1819) 50.0 GLUCOSE-STAT [id number] 14:12:00 Test Item Value Reference Range Interpretation Comments GLUCOSE RANDOM (BEAKER) (test code 161 mg/dL 70-110 H = 652) HGB/HCT (H&H) - STAT [id number] 14:12:00 Test Item Value Reference Range Interpretation Comments HEMOGLOBIN (BEAKER) (test code = 9.8 GM/DL 13.0-16.8 L 410) HEMATOCRIT (BEAKER) (test code = 29.0 % 40.0-50.0 L 411) LACTIC ACID, [id number] 14:10:00 Test Item Value Reference Range Interpretation Comments LACTATE BLOOD 1.3 mmol/L 0.5-2.2 Specimen sligh tly ARTERIAL (2) (BEAKER) hemoly zed (test code = 2874) Ride Attendant ID - RMRAD, CHEST, 1 VIEW, NON [id number] 14:10:00Reason for exam:- >Status post CV Surgery post op day 0Should this be performed at the bedside?[facility] : 1955 Sex: MFINAL REPORT [...] MDReport Verified Date/Time: 08/13/2020 14:10:40 Reading Location: [facility] Radiology Reading Room SODIUM NA-STAT [id number] 14:04:00 Test Item Value Reference Range Interpretation Comments SODIUM (BEAKER) (test code = 381) 140 meq/L 136-145 POTASSIUM-STAT [id number] 14:04:00 Test Item Value Reference Range Interpretation [...] (BEAKER) (test code = 413) OXYGEN SATURATION, [id number] 13:57:00 Test Item Value Reference Range Interpretation Comments O2 SATURATION (MEASURED) (BEAKER) 93.6 % (test code = 1455) LACTATE DEHYDROGENASE (LDH)2020-08-13 13:28:00 Test Item Value Reference Range Interpretation Comments LACTATE DEHYDROGENASE 209 U/L 125-220 Specim en slightly (BEAKER) (test code = hemoly zed 635) Ride Attendant ID - [id number] 13:25:00 Test Item Value Reference Range Interpretation Comments PHOSPHORUS (BEAKER) 3.0 mg/dL 2.3-4.7 Specimen slightly (test code = 604) hemolyzed Ride Attendant ID - MONIKAGBILIRUBIN, TOTAL AND [id number] 13:25:00 Test Item Value Reference Range Interpretation Comments BILIRUBIN TOTAL 0.6 mg/dL 0.2-1.2 Specimen sli ghtly (BEAKER) (test code = hemoly zed 377) BILIRUBIN DIRECT 0.3 mg/dL 0.1-0.5 Specimen sl ightly (BEAKER) (test code = hemoly zed 706) Ride Attendant ID - GKEWVYIEsfkruxkxuf9699-02-79 13:23:00 Test Item Value Reference Range Interpretation Comments Haptoglobin (test code = 61 mg/dL 14-258 4542-7) YARI (test code = YARI) Ride Attendant ID - MONIKAG Lab Interpretation (test Normal code = 14246-3) [facility] CenterHAPTOGLOBIN2020-12-22 13:23:00 Test Item Value Reference Range Interpretation Comments HAPTOGLOBIN (BEAKER) (test code = 61 mg/dL 14-258 366) Ride Attendant ID - YORWHEPMugrxbwdjd2714-73-72 13:22:00 Test Item Value Reference Range Interpretation Comments Fibrinogen (test code = 3255-7) 255 mg/dl 225-434 Lab Interpretation (test code = Normal 03973-8) [facility] CenteraPTT2020-12-22 13:22:00 Test Item Value Reference Range Interpretation Comments PTT (test code = 72358-4) 33.2 See_Comment [ Automated message] The system IPICO generated this result transmitted ref erence range: 22.5 - 3 6.0 seconds. The re ference range was not u sed to interpret this result as normal/abnor mal. Lab Interpretation (test Normal code = 58850-2) [facility] CenterFIBRINOGEN2020-12-22 13:22:00 Test Item Value Reference Range Interpretation Comments FIBRINOGEN LEVEL (BEAKER) (test 255 mg/dl 225-434 code = 658) [id number] 13:22:00 Test Item Value Reference Range Interpretation Comments PARTIAL THROMBOPLASTIN TIME 33.2 seconds 22.5-36.0 (BEAKER) (test code = 760) PROTHROMBIN TIME/[id number] 13:21:00 Test Item Value Reference Range Interpretation [...] U/L 125-220 YARI (test code = YARI) Ride Attendant ID - ROSIANG Lab Interpretation (test Normal code = 99240-2) [facility] CenterBilirubin, total and [id number] 13:16:00 Test Item Value Reference Range Interpretation Comments Total Bilirubin (test code 1.0 mg/dL 0.2-1.2 = 1975-2) Bilirubin, Direct (test 0.5 mg/dL 0.1-0.5 code = 1968-7) YARI (test code = YARI) Ride Attendant ID - ROSIANG Lab Interpretation (test Normal code = 32280-4) [facility] CenterBILIRUBIN, TOTAL AND [id number] 13:16:00 Test Item Value Reference Range Interpretation Comments BILIRUBIN TOTAL (BEAKER) (test code 1.0 mg/dL 0.2-1.2 = 377) BILIRUBIN DIRECT (BEAKER) (test 0.5 mg/dL 0.1-0.5 code = 706) Ride Attendant ID - ROSIANGLACTATE DEHYDROGENASE (LDH)2020-08-13 13:16:00 Test Item Value Reference Range Interpretation Comments LACTATE DEHYDROGENASE (BEAKER) (test 171 U/L 125-220 code = 635) Ride Attendant ID - ROSIANGPOC ACTIVATED CLOTTING [id number] 13:11:00 Test Item Value Reference Range Interpretation Comments Activated Clotting Time 120 sec : 74 -137 seconds, (test code = 441) Baseline: TESTED AT [address], [facility]: Ride Attendant/Techni radha ID = [id number] for KI BLER, ARELIS [facility]POCT-[id number] 13:11:00 Test Item Value Reference Range Interpretation Comments ACTIVATED CLOTTING TIME 120 sec : 74 -137 seconds, (BEAKER) (test code = Baseli ne: TESTED AT [facility]) [address], [facility]: Ride Attendant/Techni radha ID = [id number] for KI BLER, ARELIS [id number] 13:11:00 Test Item Value Reference Range Interpretation Comments ACTIVATED CLOTTING TIME 120 sec : 74 -137 seconds, (BEAKER) (test code = Baseli ne: TESTED AT [facility]) [address], [facility]: Ride Attendant/Techni radha ID = [id number] for KI BLER, ARELIS [id number] 13:11:00 Test Item Value Reference Range Interpretation Comments ACTIVATED CLOTTING TIME 984 sec : 74 -137 seconds, (BEAKER) (test code = Baseli ne: TESTED AT [facility]) [address], [facility]: Ride Attendant/Techni radha ID = [id number] for KI BLER, ARELIS [id number] 13:11:00 Test Item Value Reference Range Interpretation Comments ACTIVATED CLOTTING TIME 912 sec : 74 -137 seconds, (BEAKER) (test code = Baseli ne: TESTED AT [facility]) [address], [facility]: Ride Attendant/Techni radha ID = [id number] for KI BLER, ARELIS [id number] 13:11:00 Test Item Value Reference Range Interpretation Comments ACTIVATED CLOTTING TIME > sec : 74 -137 seconds, (BEAKER) (test code = Baseli ne: TESTED AT [facility]) [address], [facility]: Ride Attendant/Techni radha ID = [id number] for KI BLER, ARELIS [id number] 13:11:00 Test Item Value Reference Range Interpretation Comments ACTIVATED CLOTTING TIME 131 sec : 74 -137 seconds, (BEAKER) (test code = Baseli ne: TESTED AT 441) [facility] [address] [place], [address]: Ride Attendant/Techni radha ID = [id number] for SUJEY CARLSON CBC with platelet count + automated [id number] 13:04:00 Test Item Value Reference Range Interpretation Comments WBC (test code = 6690-2) 8.5 See_Comment [A utomated message] The system IPICO generated this result transmitted ref erence range: 3.5 - 10 .5 K/L. The refe rence range was not u sed to interpret this result as normal/abnor mal. RBC (test code = 789-8) 2.57 See_Comment L [Au tomated message] The system IPICO generated this result transmitted ref erence range: 4.63 - 6 .08 M/L. The refe rence range was not u sed to interpret this result as normal/abnor mal. MCHC (test code = 786-4) 31.9 See_Comment L [A utomated message] The system IPICO generated this result transmitted ref erence range: 32.3 - 3 6.5 GM/DL. The refe rence range was not u sed to interpret this result as normal/abnor mal. Hematocrit (test code = 23.8 % 40.1-51 L 4544-3) MCV (test code = 787-2) 92.6 fL 79-92.2 H MCH (test code = 785-6) 29.6 pg 25.7-32.2 RDW (test code = 788-0) 16.5 % 11.6-14.4 H Platelets (test code = 181 See_Comment [Aut omated message] 777-3) The system IPICO generated this result transmitted ref erence range: 150 - 45 0 K/CU MM. The referen ce range was not u sed to interpret this result as normal/abnor mal. MPV (test code = 10.0 fL 9.4-12.4 57857-9) nRBC (test code = 413) 0 See_Comment [Aut omated message] The system IPICO generated this result transmitted ref erence range: 0 - 0 /1 00 WBC. The refere nce range was not u sed to interpret this result as normal/abnor mal. % Neutros (test code = 75 % 429) % Lymphs (test code = 16 % 430) % Monos (test code = 6 % 431) % Eos (test code = 432) 1 % % Baso (test code = 437) 0 % # Neutros (test code = 6.40 See_Comment H [Aut omated message] 670) The system IPICO generated this result transmitted ref erence range: 1.78 - 5 .38 K/L. The refe rence range was not u sed to interpret this result as normal/abnor mal. # Lymphs (test code = 1.34 See_Comment [Auto mated message] 414) The system IPICO generated this result transmitted ref erence range: 1.32 - 3 .57 K/L. The refe rence range was not u sed to interpret this result as normal/abnor mal. # Monos (test code = 0.52 See_Comment [Autom ated message] 415) The system IPICO generated this result transmitted ref erence range: 0.30 - 0 .82 K/L. The refe rence range was not u sed to interpret this result as normal/abnor mal. # Eos (test code = 416) 0.12 See_Comment [Au tomated message] The system IPICO generated this result transmitted ref erence range: 0.04 - 0 .54 K/L. The refe rence range was not u sed to interpret this result as normal/abnor mal. # Baso (test code = 417) 0.02 See_Comment [A utomated message] The system IPICO generated this result transmitted ref erence range: 0.01 - 0 .08 K/L. The refe rence range was not u sed to interpret this result as normal/abnor mal. Immature 1 % 0-1 Granulocytes-Relative (test code = 2801) Lab Interpretation (test Abnormal code = 73557-7) [facility] W/PLT COUNT & AUTO [id number] 13:04:00 Test Item Value Reference Range Interpretation [...] PERCENT (BEAKER) (test code = 2801) RETICULOCYTE [id number] 13:03:00 Test Item Value Reference Range Interpretation Comments RETICULOCYTE COUNT PCT (BEAKER) (test 2.1 % 0.5-1.8 H code = 575) Ride Attendant ID - [id number] [id number] 12:58:00 Test Item Value Reference Range Interpretation Comments % Retic (test code = 1.8 % 0.5-1.8 71016-5) YARI (test code = YARI) Ride Attendant ID - [id number] Lab Interpretation (test Normal code = 86930-5) [facility] CenterPlatelet [id number] 12:58:00 Test Item Value Reference Range Interpretation Comments Platelets (test code 138 See_Comment L [Autom ated = 777-3) message] The system which generated this result transmit rachana reference range : 150 - 450 K/CU MM. The reference range was not u sed to interpret th is result as normal/abnormal . YARI (test code = YARI) Ride Attendant ID - [id number] Lab Interpretation Abnormal (test code = 31963-5) [facility] CenterPLATELET [id number] 12:58:00 Test Item Value Reference Range Interpretation Comments PLATELET COUNT (BEAKER) (test 138 K/CU MM 150-450 L code = 756) Ride Attendant ID - 6000RETICULOCYTE [id number] 12:58:00 Test Item Value Reference Range Interpretation Comments RETICULOCYTE COUNT PCT (BEAKER) (test 1.8 % 0.5-1.8 code = 575) Ride Attendant ID - [id number] NA-STAT [id number] 12:45:00 Test Item Value Reference Range Interpretation Comments SODIUM (BEAKER) (test code = 381) 140 meq/L 136-145 BLOOD GAS, [id number] 12:45:00 Test Item Value Reference Range Interpretation [...] (BEAKER) (test code = 1819) 100.0 GLUCOSE-STAT [id number] 12:45:00 Test Item Value Reference Range Interpretation Comments GLUCOSE RANDOM (BEAKER) (test code 179 mg/dL 70-110 H = 652) POTASSIUM-STAT [id number] 12:45:00 Test Item Value Reference Range Interpretation Comments POTASSIUM (BEAKER) (test code = 3.3 meq/L 3.6-5.5 L 379) HGB/HCT (H&H) - STAT [id number] 12:45:00 Test Item Value Reference Range Interpretation Comments HEMOGLOBIN (BEAKER) (test code = 9.8 GM/DL 13.0-16.8 L 410) HEMATOCRIT (BEAKER) (test code = 29.0 % 40.0-50.0 L 411) Peripheral Blood Smear - Hold [id number] 12:38:00 Test Item Value Reference Range Interpretation Comments Peripheral Smear Save (test code = save 1815) [facility]PER[facility] - HOLD [id number] 12:38:00 Test Item Value Reference Range Interpretation Comments PERIPHERAL SMEAR SAVE (BEAKER) (test save code = 1815) PROTHROMBIN [id number] 12:26:00 Test Item Value Reference Range Interpretation [...] INR is2.5-3.5 for patients wiht mechanical heart valves.[id number] 12:26:00 Test Item Value Reference Range Interpretation Comments FIBRINOGEN LEVEL (BEAKER) (test 254 mg/dl 225-434 code = 658) [id number] 12:26:00 Test Item Value Reference Range Interpretation [...] 0.1 % 0.0-5.0 code = 1414) PLATELET [id number] 12:11:00 Test Item Value Reference Range Interpretation Comments PLATELET COUNT (BEAKER) (test 171 K/CU MM 150-450 code = 756) Ride Attendant ID - [id number] NA-STAT [id number] 12:02:00 Test Item Value Reference Range Interpretation Comments SODIUM (BEAKER) (test code = 381) 142 meq/L 136-145 BLOOD GAS, [id number] 12:02:00 Test Item Value Reference Range Interpretation [...] (BEAKER) (test code = 1819) 100.0 POTASSIUM-STAT [id number] 12:02:00 Test Item Value Reference Range Interpretation Comments POTASSIUM (BEAKER) (test code = 3.2 meq/L 3.6-5.5 L 379) GLUCOSE-STAT [id number] 12:02:00 Test Item Value Reference Range Interpretation Comments GLUCOSE RANDOM (BEAKER) (test code 166 mg/dL 70-110 H = 652) HGB/HCT (H&H) - STAT [id number] 12:02:00 Test Item Value Reference Range Interpretation Comments HEMOGLOBIN (BEAKER) (test code = 8.1 GM/DL 13.0-16.8 L 410) HEMATOCRIT (BEAKER) (test code = 24.0 % 40.0-50.0 L 411) CALCIUM, [id number] 12:01:00 Test Item Value Reference Range Interpretation Comments CALCIUM IONIZED (BEAKER) (test 1.12 mmol/L 1.12-1.27 code = 698) PH, BLOOD (BEAKER) (test code = 7.48 1810) [id number] 11:42:00 Test Item Value Reference Range Interpretation Comments PARTIAL THROMBOPLASTIN TIME 34.0 seconds 22.5-36.0 (BEAKER) (test code = 760) PROTHROMBIN TIME/[id number] 11:41:00 Test Item Value Reference Range Interpretation [...] INR is2.5-3.5 for patients wiht mechanical heart valves.[id number] 11:41:00 Test Item Value Reference Range Interpretation Comments FIBRINOGEN LEVEL (BEAKER) (test 255 mg/dl 225-434 code = 658) HEMOGLOBIN [id number] 11:34:00 Test Item Value Reference Range Interpretation Comments HEMOGLOBIN A1C (BEAKER) (test code = 4.9 % 4.3-6.1 368) PLATELET [id number] 11:08:00 Test Item Value Reference Range Interpretation Comments PLATELET COUNT (BEAKER) 89 K/CU MM 150-450 L POST TRANSFUSION (test code = 756) Ride Attendant ID - 6000BLOOD GAS, [id number] 11:02:00 Test Item Value Reference Range Interpretation [...] (BEAKER) (test code = 1819) 100.0 POTASSIUM-STAT [id number] 11:02:00 Test Item Value Reference Range Interpretation Comments POTASSIUM (BEAKER) (test code = 3.4 meq/L 3.6-5.5 L 379) GLUCOSE-STAT [id number] 11:02:00 Test Item Value Reference Range Interpretation Comments GLUCOSE RANDOM (BEAKER) (test code 140 mg/dL 70-110 H = 652) HGB/HCT (H&H) - STAT [id number] 11:02:00 Test Item Value Reference Range Interpretation Comments HEMOGLOBIN (BEAKER) (test code = 7.5 GM/DL 13.0-16.8 L 410) HEMATOCRIT (BEAKER) (test code = 22.0 % 40.0-50.0 L 411) SODIUM NA-STAT [id number] 11:01:00 Test Item Value Reference Range Interpretation Comments SODIUM (BEAKER) (test code = 381) 140 meq/L 136-145 [id number] 10:59:00 Test Item Value Reference Range Interpretation Comments PARTIAL THROMBOPLASTIN TIME 38.7 seconds 22.5-36.0 H (BEAKER) (test code = 760) PROTHROMBIN TIME/[id number] 10:58:00 Test Item Value Reference Range Interpretation [...] INR is2.5-3.5 for patients wiht mechanical heart valves.[id number] 10:58:00 Test Item Value Reference Range Interpretation Comments FIBRINOGEN LEVEL (BEAKER) (test 250 mg/dl 225-434 code = 658) PLATELET [id number] 10:47:00 Test Item Value Reference Range Interpretation Comments PLATELET COUNT (BEAKER) (test code 7 K/CU MM 150-450 LL = 756) Ride Attendant ID - [id number] ID - [id number], [id number] 10:40:00 Test Item Value Reference Range Interpretation Comments CALCIUM IONIZED (BEAKER) (test 1.09 mmol/L 1.12-1.27 L code = 698) PH, BLOOD (BEAKER) (test code = 7.46 1810) BLOOD GAS, [id number] 10:40:00 Test Item Value Reference Range Interpretation [...] (BEAKER) (test code = 1819) 100.0 GLUCOSE-STAT [id number] 10:40:00 Test Item Value Reference Range Interpretation Comments GLUCOSE RANDOM (BEAKER) (test code 136 mg/dL 70-110 H = 652) HGB/HCT (H&H) - STAT [id number] 10:40:00 Test Item Value Reference Range Interpretation Comments HEMOGLOBIN (BEAKER) (test code = 8.0 GM/DL 13.0-16.8 L 410) HEMATOCRIT (BEAKER) (test code = 24.0 % 40.0-50.0 L 411) SODIUM NA-STAT [id number] 10:38:00 Test Item Value Reference Range Interpretation Comments SODIUM (BEAKER) (test code = 381) 139 meq/L 136-145 POTASSIUM-STAT [id number] 10:38:00 Test Item Value Reference Range Interpretation Comments POTASSIUM (BEAKER) (test code = 3.6 meq/L 3.6-5.5 379) BLOOD GAS, [id number] 09:51:00 Test Item Value Reference Range Interpretation [...] (BEAKER) (test code = 1819) 70.0 GLUCOSE-STAT [id number] 09:51:00 Test Item Value Reference Range Interpretation Comments GLUCOSE RANDOM (BEAKER) (test code 133 mg/dL 70-110 H = 652) HGB/HCT (H&H) - STAT [id number] 09:51:00 Test Item Value Reference Range Interpretation Comments HEMOGLOBIN (BEAKER) (test code = 8.3 GM/DL 13.0-16.8 L 410) HEMATOCRIT (BEAKER) (test code = 24.0 % 40.0-50.0 L 411) SODIUM NA-STAT [id number] 09:50:00 Test Item Value Reference Range Interpretation Comments SODIUM (BEAKER) (test code = 381) 140 meq/L 136-145 POTASSIUM-STAT [id number] 09:50:00 Test Item Value Reference Range Interpretation Comments POTASSIUM (BEAKER) (test code = 4.0 meq/L 3.6-5.5 379) BLOOD GAS, [id number] 09:26:00 Test Item Value Reference Range Interpretation [...] (BEAKER) (test code = 1819) 70.0 GLUCOSE-STAT [id number] 09:26:00 Test Item Value Reference Range Interpretation Comments GLUCOSE RANDOM (BEAKER) (test code 151 mg/dL 70-110 H = 652) HGB/HCT (H&H) - STAT [id number] 09:26:00 Test Item Value Reference Range Interpretation Comments HEMOGLOBIN (BEAKER) (test code = 6.8 GM/DL 13.0-16.8 L 410) HEMATOCRIT (BEAKER) (test code = 20.0 % 40.0-50.0 L 411) SODIUM NA-STAT [id number] 09:25:00 Test Item Value Reference Range Interpretation Comments SODIUM (BEAKER) (test code = 381) 140 meq/L 136-145 POTASSIUM-STAT [id number] 09:25:00 Test Item Value Reference Range Interpretation Comments POTASSIUM (BEAKER) (test code = 4.1 meq/L 3.6-5.5 379) maciel [id number] 08:31:00 Test Item Value Reference Range Interpretation Comments ABO Grouping (test code = 2588) O Rh Factor (test code = 2589) [facility] 08[facility]21:33Kristy Khan MD 08/13/2020 10:55 [...] as previously described. Exam otherwise as previously described.[facility] [id number] 07:56:00 Test Item Value Reference Range Interpretation Comments GLUCOSE RANDOM (BEAKER) (test code = 93 mg/dL 70-110 652) SODIUM NA-STAT [id number] 07:56:00 Test Item Value Reference Range Interpretation Comments SODIUM (BEAKER) (test code = 381) 141 meq/L 136-145 BLOOD GAS, [id number] 07:56:00 Test Item Value Reference Range Interpretation [...] (BEAKER) (test code = 1819) 100.0 POTASSIUM-STAT [id number] 07:56:00 Test Item Value Reference Range Interpretation Comments POTASSIUM (BEAKER) (test code = 2.8 meq/L 3.6-5.5 L 379) HGB/HCT (H&H) - STAT [id number] 07:56:00 Test Item Value Reference Range Interpretation Comments HEMOGLOBIN (BEAKER) (test code = 10.1 GM/DL 13.0-16.8 L 410) HEMATOCRIT (BEAKER) (test code = 30.0 % 40.0-50.0 L 411) CALCIUM, [id number] 07:55:00 Test Item Value Reference Range Interpretation Comments CALCIUM IONIZED (BEAKER) (test 1.13 mmol/L 1.12-1.27 code = 698) PH, BLOOD (BEAKER) (test code = 7.46 1810) Type and screen, [id number] 07:26:00 Test Item Value Reference Range Interpretation Comments Ab Scrn (test code = NEGATIVE entered manually echo 1 890-4) [facility] CenterCOMPRE[facility]ENSIVE METABOLIC [id number] 07:17:00 Test Item Value Reference Range Interpretation [...] 347) EGFR (BEAKER) (test 11 mL/min/1.73 ESTIMA RACHANA GFR IS code = 1092) sq m NOT ACCURATE CREATININE CLEARANCE IN PREDICTING GLOMERULAR FILTRATION RATE . ESTIMATED GFR I S NOT APPLICABLE FOR DIALYSIS PATIEN TS. Ride Attendant ID - BHARAT [id number] 07:09:00 Test Item Value Reference Range Interpretation Comments MAGNESIUM (BEAKER) (test code = 2.1 mg/dL 1.6-2.6 627) Ride Attendant ID - BHARAT LLIPID [id number] 07:09:00 Test Item Value Reference Range Interpretation [...] Borderline 130-159 High 160-189 Very High >=190 Ride Attendant ID - [id number] 07:01:00 Test Item Value Reference Range Interpretation Comments PARTIAL THROMBOPLASTIN TIME 30.9 seconds 22.5-36.0 (BEAKER) (test code = 760) PROTHROMBIN TIME/[id number] 07:00:00 Test Item Value Reference Range Interpretation [...] mechanical heart valves.RAD, CHEST, 1 VIEW, NON [id number] 07:00:00Reason for exam:->pre opShould this be performed at the bedside?->[facility] : 1955 Sex: MFINAL REPORT [...] 08/13/2020 07:00:58 CBC W/PLT COUNT & AUTO [id number] 06:48:00 Test Item Value Reference Range Interpretation [...] PERCENT (BEAKER) (test code = 2801) POCT-GLUCOSE [id number] 06:14:00 Test Item Value Reference Range Interpretation Comments POC-GLUCOSE METER 81 mg/dL 70-110 : TESTED A T [facility] [address] [facility] (test code = [place], 1538) [address]: Ride Attendant/Techni radha ID = [id number] for JORD AN, LACRYSTAL SARS-COV2/RT-PCR ([facility])2020-08-08 23:08:00 Test Item Value Reference Range Interpretation Comments SARS-COV2/RT-PCR (test Negative Not Detected, Negative, code = 0026784) See external report for linked test SARS-COV-2 PERFORMING LAB [facility] RAJAT (test code = 7400739) Negative result for this test determines that [...] Toney SARS-CoV-2 assay.Fact Sheet for Healthcare Providers:https://www.molecular.toney/david/ XW_RZBW-AxJ-5_UOQ_Pzdf_Sonea_03-859909.pdfFact Sheet for Healthcare Patients:https://www.molecular.ab radha/david/UB_XGDD-JeF-8_Iqjdrnu_Pblv_Kuckk_JR_56-648144F4.pdfPerforming Laboratory:[place] [address] [place] [address] CHEM [id number] 19:23:0011.6[facility]annCHE[facility] [id number] 19:23:00 34.0[facility]annCHEM [id number] 19:23:0035[facility]annCHEM PANEL 2017-06-01 19:23:85532Anfenhzl HermannCHEM MXGHX4484-09-08 19:23:00186Ouicqmqw HermannCHEM EADBS0138-96-00 19:23:004.6[facility]annCHEM DHFUN2568-22-46 19:23:75202Fvaasrgl RazuauzNPQTEZGFVO2655-15-36 15:52:0012.2[facility] QOIRUFZYRU5977-53-58 15:52:0036.0[facility] FnsonfiHCFAPQJBCL9008-71-65 15:52:0033 [facility] BzcduziJNJJKBZFLG3941-17-48 15:52:08723Xvqyxonq HermannHEMATOLOGY 2017-06-01 15:52:17737Bdpsrhoo DywxfnkOMIWDBYULO2582-32-13 15:52:004.3[facility] PoynctjFZCTEUINFJ7789-54-99 15:52:22891Dftaqbak HermannCHEM TJVVF9114-34-84 20:33:0011[facility]annCHEM ANIXK3875-72-63 20:33:0010.8[facility]annCHEM WFJRQ9476-71-89 20:33:009.2[facility]annCHEM HEBWX1357-60-70 20:33:0035 [facility]annCHE[facility] DLHJD7602-50-29 20:33:005.40[facility]annCHEM PANEL 2017-03-04 20:33:42361Bqxkqhap HermannCHEM FSUEQ8361-37-91 20:33:15508Aqdxrawp HermannCHEM UXWEB6531-17-48 20:33:003.8[facility]annCHEM JGOCZ2905-97-49 20:33:0097[facility]annCHEM RXPWA4756-29-48 20:33:0034[facility] DNOZMQAKNA5163-01-07 20:33:005.4[facility] TproaweCPGBISADQE3554-95-00 20:33:000.5 [facility] SmmdfujWIZCJSZINA3136-20-62 20:33:001.1[facility] HermannHEMATOLOGY 2017-03-04 20:33:003.4[facility] DikctchKXOBOPQGNO5759-42-25 20:33:000.1[facility] LqadedpEKKWXKFCIW3632-38-33 20:33:000.4[facility] ZbgljhnEKBNWSKLXY9111-35-35 20:33:0052.7[facility] IetabppJCOENKCDXN6052-07-57 20:33:0032.9[facility] [place] LNABICBQEY4315-69-45 20:33:0010.3[facility] UkjtsurTQPEYKAEBQ8388-82-80 20:33:00 3.6[facility] AvjghouLBZUERNOSC4695-01-01 20:33:0091.1[facility] HermannHEMATOLOGY 2017-03-04 20:33:004.52[facility] NzepuohMFFGRXGIPA5337-08-20 20:33:0013.5[facility] DscjrekKZEHOIMDYS3052-91-43 20:33:00 Test Item Value Reference Range Interpretation Comments MCH (test code = MCH) 29.9 pg 27.0-31.0 [facility] BaovjqaUAQFCIPLTJ0757-82-95 20:33:0041.2[facility] HermannHEMATOLOGY 2017-03-04 20:33:008.1[facility] QxcjiuiFTQGHSJKLX2998-32-25 20:33:0032.8[facility] AzxdaasNFLQGBBXXY5778-22-50 20:33:0014.1[facility] EckzgbhQEIYWOUBJO7990-69-90 20:33:59849Qojwcuku MhclzojVETPVKVSVV4302-26-90 20:33:0010.3[facility] [place] LMJSDVCJFG9216-86-67 15:26:0013.9[facility] QbkzjtmPSXAQYBQGQ3239-54-71 15:26:00 126[facility] WktfhlsJEEZBOKRKV7704-13-82 15:26:0043[facility]annHEMATOLOGY 2017-02-26 15:26:0041.0[facility] RgrughiZZSFKNJNVJ8783-14-81 15:26:004.1[facility] YtmhgqxAGMXBQQQAD1836-21-70 15:26:30831Lwuwhydp SehekgyWOJURZSKNU1996-82-54 15:26:67135Smwzmvus MtywtyqUTASLRQATEMK3853-71-99 11:43:09766Fddkympp [place] ZCLLZGQWXTJK8317-23-28 11:43:0046[facility] ZvvflivCZJUZPQPLSMH0457-47-22 11:43:00 103[facility] MnxslxdLVBUNWGLPEQE6828-62-84 11:43:004.3[facility] [place] BBJMBMVYQQVW7649-63-48 11:43:62305Leoifpvh DveyckmOCGKFEWWJFGI6260-69-19 11:43:0015.6[facility] RxyrssnHGMXGQBWPORT3990-14-74 11:43:0046.0[facility] BLOOD BANK TEQSVDN0231-53-78 15:22:00Negative (02/24/17 10:22 AM)[facility] EUQKHNJSWVDZ3662-76-55 15:22:0013.1[facility] GkbhvvwYEZYIOAMOUHF6221-17-66 15:22:0011[facility] UgkymphHKCWKGAFNGHZ1068-53-91 15:22:009.3[facility] [place] UQHCYZALWHQD7673-17-94 15:22:53201Shlawrts KxafvogUSDBFFBEOCKE8166-52-59 15:22:0028[facility] QifztkcTAIPSDIWCNCE2513-29-09 15:22:67465Leinouwk [place] KOFKJXRDVBBN1825-68-62 15:22:004.1[facility] NyooxxdLHHPSAHCUVNN9919-83-97 15:22:005.30[facility] RchuwzbMAKUTCTYEAQH2795-24-78 15:22:0047[facility] [place] SDGHPJBHOLDF2420-25-03 15:22:78291[place] JlyfnwfQOLRXXSAAE6736-34-32 15:22:00 Test Item Value Reference Range Interpretation Comments PT (test code = PT) 12.7 s 12.0-14.7 [facility] ShlpahxFEBHTJOQWF9022-60-62 15:22:000.93[facility]annHEMATOLOGY 2017-02-24 15:22:00 Test Item Value Reference Range Interpretation Comments PTT (test code = PTT) 28.3 s 22.9-35.8 [facility] NkaywgcXKEPXSVFXD9705-70-60 15:22:008.7[facility]annHEMATOLOGY 2017-02-24 15:22:52040Hwxbppmt MdicfiiIYKYWGOGOY0455-78-50 15:22:0032.9[facility] GxdvobrUSTFFJTONF9839-19-68 15:22:0014.7[facility] QehhdppGCCYIIDQRL6942-34-13 15:22:004.73[facility] XsrwrcuBFHMTLGZIJ7051-07-65 15:22:0014.1[facility] XFGFQCOAOJ2210-19-72 15:22:0012.8[facility] RemijdoNVYKKWGMSC3715-11-03 15:22:00 90.2[facility] XuknaagQFVTNDQYPQ1481-66-23 15:22:0042.7[facility] HermannHEMATOLOGY 2017-02-24 15:22:00 Test Item Value Reference Range Interpretation Comments MCH (test code = MCH) 29.7 pg 27.0-31.0 [facility] OusuuyzSBZLPDYWEM6825-14-48 15:22:000.1[facility] HermannHEMATOLOGY 2017-02-24 15:22:008.0[facility] SjgtlwrQMTWIQNQKH6084-33-31 15:22:001.0[facility] EmzngiuEYNJIHSJZG7791-38-30 15:22:007.6[facility] GebxpprDXNYAVKASP9942-86-47 15:22:003.4[facility] XjlkdznKWYUVQLNFW5224-87-47 15:22:003.6[facility] ESUGGXMSWB6247-49-24 15:22:0028.2[facility] JlhezbnLKJKJXQSLN1271-55-64 15:22:00 0.4[facility] VmpctzuWCFEJQKDJS8737-89-75 15:22:001.0[facility] HermannHEMATOLOGY 2017-02-24 15:22:0059.4[facility] HermannSPECIAL DOCHSRWYD7811-17-75 15:22:008.0 [facility]
--- NOTE | 2021-02-24 21:24 | RAD REPORT ---
EXAM DESCRIPTION: US - UPPER EXTREMITY VENOUS UNILATE - 02/24/2021 8:20 pm CLINICAL HISTORY: Pain;Swelling Arm pain and swelling COMPARISON: <Comparisons> FINDINGS: Right upper extremity venous system was interrogated with Doppler technique. Normal flow, compressibility and augmentation was noted. There is no DVT present.Prominent varicose vein is seen p osterior right forearm. IMPRESSION: No evidence of right upper extremity deep venous thrombosis.
--- NOTE | 2021-02-24 21:54 | ER ---
Nurse's Notes [facility] Name: Richard Rodriguez Age: 65 yrs Sex: Male : 1955 Arrival Date: 02/24/2021 Time: 18:31 Bed 24 Private MD: Diagnosis: Phlebitis and thrombophlebitis of other sites Presentation: 02/24 19:35 Chief complaint: Patient states: was d/c from [facility] on Wednesday iw for a GI bleed, had IV in RFA, now has tenderness, swelling to RFA, was taken off eliquis, is worried about a blood clot in arm. Coronavirus screen: At this time, the client does not indicate any symptoms associated with coronavirus-19. Ebola Screen: Patient negative for fever greater than or equal to 101.5 degrees Fahrenheit, and additional compatible Ebola Virus Disease symptoms Patient denies exposure to infectious person. Patient denies travel to an Ebola-affected area in the 21 days before illness onset. No symptoms or risks identified at this time. Initial Sepsis Screen: Does the patient meet any 2 criteria? No. Patient's initial sepsis screen is negative. Does the patient have a suspected source of infection? No. Patient's initial sepsis screen is negative. Risk Assessment: Do you want to hurt yourself or someone else? Patient reports no desire to harm self or others. Onset of symptoms was February 21, 2021. 19:35 Method Of Arrival: Ambulatory iw 19:35 Acuity: JERAD 3 iw Historical: - Allergies: 19:38 No Known Allergies; iw - PMHx: 19:38 CVA; Diabetes - IDDM; Dialysis; Gout; Hyperlipidemia; Hypertension; Myocardial iw infarction; Sleep Apnea; - Immunization history:: Client reports having NOT received the Covid vaccine. - Social history:: Smoking status: . Screenin:54 Abuse screen: Denies threats or abuse. Nutritional screening: No deficits noted. ap3 Tuberculosis screening: No symptoms or risk factors identified. Fall Risk None identified. Assessment: 21:52 General: Appears in no apparent distress. comfortable, Behavior is calm, cooperative, ap3 appropriate for age. Pain: Denies pain. Neuro: Level of Consciousness is awake, alert, obeys commands, Oriented to person, place, time, situation, Appropriate for age. Cardiovascular: Denies chest pain, lightheadedness, shortness of breath. Respiratory: Airway is patent Respiratory effort is even, unlabored, Respiratory pattern is regular, symmetrical. GI: No signs and/or symptoms were reported involving the gastrointestinal system. : No signs and/or symptoms were reported regarding the genitourinary system. EENT: No signs and/or symptoms were reported regarding the EENT system. Derm: Skin is pink, warm \T\ dry. Skin temperature is warm dressed wound to the left lower forearm. 21:54 Derm: Wound noted dorsal aspect of right forearm. ap3 Vital Signs: 19:36 BP 152 / 81; Pulse 71; Resp 16; Temp 98.5; Pulse Ox 98% on R/A; Weight 81.65 kg; iw 22:17 BP 174 / 81; Pulse 70; Pulse Ox 97% on R/A; ap3 ED Course: 18:31 Patient arrived in ED. as 19:36 Triage completed. iw 19:38 Arm band placed on. iw 20:20 UPPER EXTREMITY VENOUS UNILATE In Process Unspecified. EDMS 21:42 Arslan Erazo NP is PHCP. pm1 21:42 Nirmala Chan MD is Attending Physician. pm1 21:52 Huyen Wei RN is Primary Nurse. ap3 21:54 Patient has correct armband on for positive identification. Bed in low position. Call ap3 light in reach. Side rails up X2. Adult w/ patient. Pulse ox on. NIBP on. Door closed. Noise minimized. 21:54 No provider procedures requiring assistance completed. Patient did not have IV access ap3 during this emergency room visit. Administered Medications: No medications were administered Outcome: 21:54 Discharge ordered by . pm1 21:55 Condition: good ap3 22:17 Discharged to home ambulatory, with family. ap3 22:17 Discharge instructions given to patient, Instructed on discharge instructions, follow up and referral plans. medication usage, Demonstrated understanding of instructions, follow-up care, medications, Prescriptions given X 1. 22:18 Patient left the ED. ap3 Signatures: Dispatcher [employer] EDMS Felicity Jerez Irene, RN RN iw Arslan Erazo NP PHARMACY BENEFITS COORDINATOR pm1 Huyen Wei RN RN ap3
--- NOTE | 2021-02-24 21:54 | EDPHYS ---
Physician Documentation [facility] Name: Richard Rodriguez Age: 65 yrs Sex: Male : 1955 Arrival Date: 02/24/2021 Time: 18:31 Bed 24 Private MD: ED Physician Nirmala Chan HPI: 02/24 21:51 This 65 yrs old Male presents to ER via Ambulatory with complaints of Arm pm1 Problem - swelling near iv site. 21:51 The patient or guardian complains of swelling. The complaints affect the palmar aspect pm1 of right forearm. Context: The problem was sustained at the hospital, resulted from IV site location. Onset: The symptoms/episode began/occurred 2 day(s) ago. Treatment prior to arrival includes: no previous treatment. Modifying factors: the symptoms are aggravated by touching area. Associated signs and symptoms: Pertinent positives: pain, swelling, Pertinent negatives: erythema, fever. Severity of symptoms: in the emergency department the symptoms are unchanged. The patient has been recently seen by a physician: Patient was discharged from the hospital on Wednesday following admission for GI bleed. Patient's eliquis was discontinued and he was concerned that he might have a blood clot in his right arm. Historical: - Allergies: 19:38 No Known Allergies; iw - PMHx: 19:38 CVA; Diabetes - IDDM; Dialysis; Gout; Hyperlipidemia; Hypertension; Myocardial iw infarction; Sleep Apnea; - Immunization history:: Client reports having NOT received the Covid vaccine. - Social history:: Smoking status: . ROS: 21:51 Constitutional: Negative for fever, chills, and weight loss. pm1 21:51 Cardiovascular: Negative for chest pain, palpitations, and edema, Respiratory: Negative for shortness of breath, cough, wheezing, and pleuritic chest pain, Abdomen/GI: Negative for abdominal pain, nausea, vomiting, diarrhea, and constipation. 21:51 Skin: Negative for injury, rash, and discoloration, Neuro: Negative for headache, weakness, numbness, tingling, and seizure. 21:51 MS/extremity: Positive for swelling, of the palmar aspect of right forearm, Negative for injury or acute deformity, decreased range of motion, deformity. 21:51 All other systems are negative. Exam: 21:51 Constitutional: This is a well developed, well nourished patient who is awake, alert, pm1 and in no acute distress. Head/Face: Normocephalic, atraumatic. 21:51 Skin: Warm, dry with normal turgor. Normal color with no rashes, no lesions, and no evidence of cellulitis. 21:51 Eyes: Exam is negative for acute changes, Extraocular movements: intact throughout, Conjunctiva: normal, no injection, no acute changes. 21:51 ENT: Mouth: no acute changes, Lips: normal, Oral mucosa: normal, pink and intact, moist. 21:51 Cardiovascular: Exam negative for acute changes, Rate: normal, Rhythm: regular, Pulses: no pulse deficits are appreciated. 21:51 Respiratory: Exam negative for acute changes, respiratory distress, shortness of breath. 21:51 Musculoskeletal/extremity: Extremities: grossly normal except: noted in the palmar aspect of right forearm: tenderness at proximal aspect of dorsal side of right forearm, palpable cord-like vein. 21:51 Neuro: Exam negative for Orientation: is normal, Mentation: is normal, Motor: is normal, moves all fours. Vital Signs: 19:36 BP 152 / 81; Pulse 71; Resp 16; Temp 98.5; Pulse Ox 98% on R/A; Weight 81.65 kg; iw 22:17 BP 174 / 81; Pulse 70; Pulse Ox 97% on R/A; ap3 MDM: 21:42 Patient medically screened. pm1 21:51 Data reviewed: vital signs. Data interpreted: Pulse oximetry: on room air is 98 %. pm1 Interpretation: normal. Counseling: I had a detailed discussion with the patient and/or guardian regarding: the historical points, exam findings, and any diagnostic results supporting the discharge/admit diagnosis, radiology results, the need for outpatient follow up, to return to the emergency department if symptoms worsen or persist or if there are any questions or concerns that arise at home. 02/24 20:20 Order name: UPPER EXTREMITY VENOUS UNILATE; Complete Time: 21:43 EDMS Administered Medications: No medications were administered Disposition: 02/25 04:14 Co-signature as Attending Physician, Nirmala Chan MD I agree with the assessment ma2 and plan of care. Disposition Summary: 02/24/21 21:54 Discharge Ordered Location: Home pm1 Problem: new pm1 Symptoms: have improved pm1 Condition: Stable pm1 Diagnosis - Phlebitis and thrombophlebitis of other sites pm1 Followup: pm1 - With: Emergency Department - When: As needed - Reason: Worsening of condition Followup: pm1 - With: Private Physician - When: 2 - 3 days - Reason: Recheck today's complaints, Continuance of care, Re-evaluation by your physician Discharge Instructions: - Discharge Summary Sheet pm1 - Phlebitis pm1 Forms: - Medication Reconciliation Form pm1 - Thank You Letter pm1 - Antibiotic Education pm1 - Prescription Opioid Use pm1 Prescriptions: - Cephalexin 500 mg Oral Capsule - take 1 capsule by ORAL route every 6 hours for 10 days; 40 capsule; Refills: 0, pm1 Product Selection Permitted Signatures: Dispatcher [employer] Rula Fournier RN RN iw Arslan Erazo NP EXPERIMENTAL TECHNICIAN pm1 Nirmala Chan MD MD ma2 Huyen Wei RN RN ap3 Corrections: (The following items were deleted from the chart) 02/24 20:20 19:39 Extremity Venous Uni Ltd+US.RAD.BRZ ordered. EDND EDMS
[2021-02-24 22:25] VITALS: TEMP 98.5
[2021-02-24 22:26] VITALS: BP 174/81; O2SAT 97
== END 2021-02-24 22:18 | disposition home or self-care (01) ==
LOC: ER 18:30
DX: I80.8 Phlebitis and thrombophlebitis of other sites (principal); I10 Essential (primary) hypertension
CPT/HCPCS: 93971; 99283

== ENCOUNTER 2021-03-10 20:29 | Emergency (ER) | payer OTHER ==
--- NOTE | 2021-03-10 21:35 | RAD REPORT ---
EXAM DESCRIPTION: RAD - Chest Single View - 03/10/2021 9:19 pm CLINICAL HISTORY: COUGH Chest pain. COMPARISON: Chest Pa And Lat (2 Views) dated 01/17/2021; Chest Pa And Lat (2 Views) dated 11/28/2020; C hest Pa And Lat (2 Views) dated 09/12/2020; Chest Single View dated 09/11/2020 FINDINGS: Portable technique limits examination quality. Mild to moderate pulmonary edema pattern with moderate bilateral pleural effusions. The heart is mode rately enlarged. Sternotomy wires present. IMPRESSION: Mild to moderate CHF versus volume overload pattern.
[2021-03-10] MEDS ORDERED: ACETAMINOPHEN 500 MG TAB ONE (21:37)
[2021-03-10 22:12] LABS: Absolute Lymphocytes (CBC) 1.5 K/uL (0.7-4.9); Basophils % 0.3 % (0-1.3); Hematocrit 39.6 % (39.6-49.0); Lymphocytes % 16.3 % (15.3-44.8); MPV 8.6 fL (7.6-11.3); Protime INR 1.03; RBC Red Blood Cell Count 4.18 M/uL (4.33-5.43)
--- NOTE | 2021-03-10 22:14 | RAD REPORT ---
EXAM DESCRIPTION: US - Extrem Venous W Compress Joao - 03/10/2021 9:48 pm CLINICAL HISTORY: Pain;Swelling Bilateral leg edema and swelling. COMPARISON: UPPER EXTREMITY VENOUS UNILATE dated 02/24/2021 TECHNIQUE: Real-time sonographic interrogation of the left and right lower extremity deep venous sys tems was performed. FINDINGS: Normal compressibility, flow augmentation, phasic flow and spontaneous flow is identified in both the left and right lower extremity deep venous systems. IMPRESSION: No sonographic evidence of left or right lower extremity deep venous thrombosis.
--- NOTE | 2021-03-10 22:20 | RAD REPORT ---
EXAM DESCRIPTION: CT - Head Brain Wo Cont - 03/10/2021 10:14 pm CLINICAL HISTORY: WEAKNESS Headache, drowsiness COMPARISON: Head Brain W/Wo Con dated 06/18/2017; Ct Stroke Brain Wo Cont dated 06/17/2017 TECHNIQUE: All CT scans are performed using dose optimization technique as appropriate and may inclu de automated exposure control or mA/KV adjustment according to patient size. FINDINGS: No intracranial hemorrhage, hydrocephalus or extra-axial fluid collection.Mild generalized brain atrophy.No areas of brain edema or evidence of midline shift. Bilateral areas of gliosis are u nchanged since comparative exam. The paranasal sinuses and mastoids are clear. The calvarium is intact. Mild atherosclerosis of the ri ght vertebral artery. IMPRESSION: No acute intracranial abnormality.
[2021-03-10 22:39] LABS: ALT/SGPT 17 U/L (12-78); AST/SGOT 15 U/L (15-37); Alkaline Phosphatase 132 U/L (45-117); BUN Blood Urea Nitrogen 54 mg/dL (7-18); Bicarbonate 30 mmol/L (21-32); Bilirubin Total 0.5 mg/dL (0.2-1.0); Glucose Level 168 mg/dL (74-106); Potassium 4.1 mmol/L (3.5-5.1); Sodium Level 141 mmol/L (136-145)
[2021-03-10 22:40] LABS: Bilirubin Direct 0.2 mg/dL (0-0.2); Magnesium 2.6 mg/dL (1.8-2.4); NT PRO-BNP 95529 pg/mL (<125); Protein, Total 6.9 g/dL (6.4-8.2); Troponin (Emerg Dept Use Only) < 0.02 ng/mL (0.0-0.045)
[2021-03-10 23:06] LABS: Blood Morphology Comment NOT SEEN (NOT SEEN); Platelet Estimate DECR; White Blood Cell Scan OK (OK)
[2021-03-10] MEDS ORDERED: FUROSEMIDE 100 MG/10 ML VIAL IV ONE (23:21)
--- NOTE | 2021-03-10 23:50 | ER ---
Nurse's Notes [facility] Name: Richard Rodriguez Age: 65 yrs Sex: Male : 1955 Arrival Date: 03/10/2021 Time: 20:33 Bed 17 Private MD: Real Olson T Diagnosis: Pain in right knee;Edema, unspecified Presentation: 03/10 20:50 Chief complaint: Patient states: R knee pain x 1 week, tender up to the L groin area. ca1 Swelling noted since last night and warm to touch. denies recent injury. Coronavirus screen: Client denies travel out of the [place] in the last 14 days. At this time, the client does not indicate any symptoms associated with coronavirus-19. Ebola Screen: Patient negative for fever greater than or equal to 101.5 degrees Fahrenheit, and additional compatible Ebola Virus Disease symptoms Patient denies exposure to infectious person. Patient denies travel to an Ebola-affected area in the 21 days before illness onset. No symptoms or risks identified at this time. Initial Sepsis Screen: Does the patient meet any 2 criteria? No. Patient's initial sepsis screen is negative. Does the patient have a suspected source of infection? No. Patient's initial sepsis screen is negative. Risk Assessment: Do you want to hurt yourself or someone else? Patient reports no desire to harm self or others. Onset of symptoms was March 10, 2021. 20:50 Method Of Arrival: Ambulatory ca1 20:50 Acuity: JERAD 3 ca1 Historical: - Allergies: 20:52 No Known Allergies; ca1 - PMHx: 20:52 CVA; Diabetes - IDDM; Dialysis; Gout; Hyperlipidemia; Hypertension; Myocardial ca1 infarction; Sleep Apnea; - Immunization history:: Client reports having NOT received the Covid vaccine. Pneumococcal vaccine is up to date, Flu vaccine is up to date. - Social history:: Smoking status: Patient/guardian denies using tobacco, the patient reports quitting approximately 9 years ago. Screenin:35 Abuse screen: Denies threats or abuse. Denies injuries from another. Nutritional ld1 screening: No deficits noted. Tuberculosis screening: No symptoms or risk factors identified. Fall Risk None identified. Assessment: 20:35 General: Appears in no apparent distress. comfortable, Behavior is calm, cooperative, ld1 appropriate for age. 20:35 Pain: Complains of pain in right knee Pain does not radiate. Pain currently is 8 out of ld1 10 on a pain scale. Quality of pain is described as throbbing, Pain began 2-3 days ago. Is continuous. Neuro: Level of Consciousness is awake, alert, obeys commands, Oriented to person, place, time, situation. Cardiovascular: Capillary refill < 3 seconds Patient's skin is warm and dry. Respiratory: Airway is patent Respiratory effort is even, unlabored, Respiratory pattern is regular, symmetrical. GI: Abdomen is flat, non-distended. : No signs and/or symptoms were reported regarding the genitourinary system. EENT: No signs and/or symptoms were reported regarding the EENT system. Derm: No signs and/or symptoms reported regarding the dermatologic system. Musculoskeletal: No signs and/or symptoms reported regarding the musculoskeletal system. 22:00 Reassessment: Patient appears in no apparent distress at this time. No changes from ld1 previously documented assessment. Patient and/or family updated on plan of care and expected duration. Pain level reassessed. Patient is alert, oriented x 3, equal unlabored respirations, skin warm/dry/pink. 23:56 Reassessment: Patient appears in no apparent distress at this time. No changes from ld1 previously documented assessment. Patient and/or family updated on plan of care and expected duration. Pain level reassessed. Vital Signs: 20:35 BP 137 / 57; Pulse 86; Resp 18; Temp 97.9(O); Pulse Ox 96% on R/A; Pain 0/10; ld1 20:50 BP 152 / 74; Pulse 74; Resp 16 S; Temp 98.3(O); Pulse Ox 96% on R/A; Weight 86.18 kg ca1 (R); Height 5 ft. 10 in. (177.80 cm) (R); Pain 10/10; 23:56 BP 128 / 60; Pulse 80; Resp 18; Pulse Ox 96% on R/A; ld1 20:50 Body Mass Index 27.26 (86.18 kg, 177.80 cm) ca1 ED Course: 20:33 Patient arrived in ED. es 20:33 Real Olson MD is Private Physician. es 20:35 Patient has correct armband on for positive identification. Placed in gown. Bed in low ld1 position. Call light in reach. Side rails up X2. cardiac monitor technician on. Pulse ox on. NIBP on. 20:35 No provider procedures requiring assistance completed. ld1 20:52 Triage completed. ca1 20:52 Arm band placed on right wrist. ca1 20:56 Doyle Bledsoe PA is PHCP. cp 20:56 Doyle Chauhan MD is Attending Physician. cp 21:02 Cindi Jones, MARY is Primary Nurse. ld1 21:18 XRAY Chest (1 view) In Process Unspecified. EDMS 21:48 US Extremity Venous W Compression Joao In Process Unspecified. EDMS 22:00 Inserted saline lock: 20 gauge in right antecubital area, using aseptic technique. oe Blood collected. 22:14 CT Head Brain wo Cont In Process Unspecified. EDMS 23:26 XRAY Knee RIGHT 3 view In Process Unspecified. EDMS 23:57 IV discontinued, intact, bleeding controlled, No redness/swelling at site. ld1 Administered Medications: 21:12 CANCELLED (Physician Discretion): NS 0.9% 1000 ml IV at 75 ml/hr continuous ld1 21:12 CANCELLED (Physician Discretion): Aspirin 81 mg PO once; if ct head negative ld1 21:12 CANCELLED (Physician Discretion): foLIC Acid 1 mg IVPB once ld1 21:18 Drug: Tylenol 1000 mg Route: PO; ld1 23:06 Drug: Lasix (furosemide) 100 mg Route: IVP; Site: right antecubital; ld1 Outcome: 23:49 Discharge ordered by MD. cp 23:57 Discharged to home via wheelchair, with family. ld1 23:57 Condition: stable 23:57 Discharge instructions given to patient, family, Instructed on discharge instructions, follow up and referral plans. Demonstrated understanding of instructions, follow-up care. 23:57 Patient left the ED. ld1 Signatures: Dispatcher [employer] EDMS Chasidy Spaulding Corey, PA PA Matt Delaney Cheryl, RN RN ca1 Cindi Jones, MARY RN ld1
--- NOTE | 2021-03-10 23:50 | EDPHYS ---
Physician Documentation [facility] Name: Richard Rodriguez Age: 65 yrs Sex: Male : 1955 Arrival Date: 03/10/2021 Time: 20:33 Bed 17 Private MD: Real Olson T ED Physician Doyle Chauhan HPI: 03/10 21:04 This 65 yrs old Male presents to ER via Ambulatory with complaints of Knee cp Pain, KNEE SWELLING. 21:04 The patient has shortness of breath at rest, with light activity. The patient's fab shortness of breath has no apparent modifying factors. The patient presents to the emergency department with difficult walking, the patient falls to the right. Context: occurred at an unknown location, occurred while the patient was doing normal activity. Associated signs and symptoms: The patient has no apparent associated signs or symptoms. Severity of symptoms: At their worst the symptoms were mild in the emergency department the symptoms are unchanged. Associated signs and symptoms: Pertinent positives: non-productive cough. Historical: - Allergies: 20:52 No Known Allergies; ca1 - PMHx: 20:52 CVA; Diabetes - IDDM; Dialysis; Gout; Hyperlipidemia; Hypertension; Myocardial ca1 infarction; Sleep Apnea; - Immunization history:: Client reports having NOT received the Covid vaccine. Pneumococcal vaccine is up to date, Flu vaccine is up to date. - Social history:: Smoking status: Patient/guardian denies using tobacco, the patient reports quitting approximately 9 years ago. ROS: 21:10 Cardiovascular: Positive for edema, Negative for chest pain, palpitations. cp 21:10 MS/extremity: Positive for pain, swelling, tenderness, of the right knee, Negative for cp decreased range of motion, deformity, paresthesias. 21:10 Skin: Negative for cellulitis, rash. 21:10 Neuro: Negative for altered mental status, headache, weakness. Exam: 21:31 ECG was reviewed by the Attending Physician. cp Vital Signs: 20:35 BP 137 / 57; Pulse 86; Resp 18; Temp 97.9(O); Pulse Ox 96% on R/A; Pain 0/10; ld1 20:50 BP 152 / 74; Pulse 74; Resp 16 S; Temp 98.3(O); Pulse Ox 96% on R/A; Weight 86.18 kg ca1 (R); Height 5 ft. 10 in. (177.80 cm) (R); Pain 10/10; 23:56 BP 128 / 60; Pulse 80; Resp 18; Pulse Ox 96% on R/A; ld1 20:50 Body Mass Index 27.26 (86.18 kg, 177.80 cm) ca1 MDM: 21:03 Patient medically screened. 03/10 21:23 Order name: Basic Metabolic Panel 03/10 21:23 Order name: CBC with Diff 03/10 22:48 Interpretation: Normal except: RBC 4.18; HGB 12.6; MCV 94.8; MCHC 31.9; PLT 97; RDW cp 18.2; EOSINOPHIL % 5.7. 03/10 21:23 Order name: LFT's 03/10 21:23 Order name: Magnesium 03/10 21:03 Order name: XRAY Chest (1 view); Complete Time: 22:47 [facility] 03/10 21:03 Order name: CT Head Brain wo Cont; Complete Time: 22:47 [facility] 03/10 21:15 Order name: US Extremity Venous W Compression Joao; Complete Time: 22:47 03/10 21:23 Order name: NT PRO-BNP; Complete Time: 22:47 03/10 21:23 Order name: PT-INR; Complete Time: 22:47 03/10 21:23 Order name: Troponin (emerg Dept Use Only); Complete Time: 22:47 03/10 21:23 Order name: Basic Metabolic Panel; Complete Time: 22:47 [facility] 03/10 22:47 Interpretation: Normal except: GLUC 168; BUN 54; CRE 6.36; GFR 9. cp 03/10 21:23 Order name: Liver (Hepatic) Function; Complete Time: 22:47 EDMS 03/10 21:23 Order name: Magnesium; Complete Time: 22:47 ED[facility] 03/10 22:15 Order name: CBC Smear Scan [facility] 03/10 22:55 Order name: XRAY Knee RIGHT 3 view 03/10 21:03 Order name: EKG; Complete Time: 21:04 [facility] 03/10 21:03 Order name: O2 Sat Monitoring; Complete Time: 21:32 [facility] 03/10 21:23 Order name: Cardiac monitoring; Complete Time: 21:32 03/10 21:23 Order name: EKG - Nurse/Tech; Complete Time: 21:32 cp 03/10 21:23 Order name: IV Saline Lock; Complete Time: 22:00 cp 03/10 21:23 Order name: Labs collected and sent; Complete Time: 22:00 cp 03/10 21: Order name: O2 Per Protocol; Complete Time: 21:32 cp EC:31 Rate is 65 beats/min. Rhythm is regular. OR interval is normal. QRS interval is cp prolonged at 124 msec. QT interval is normal. T waves are Inverted in leads aVR, V2, V3, V4. Interpreted by me. Reviewed by me. Administered Medications: 21:12 CANCELLED (Physician Discretion): NS 0.9% 1000 ml IV at 75 ml/hr continuous ld1 21:12 CANCELLED (Physician Discretion): Aspirin 81 mg PO once; if ct head negative ld1 21:12 CANCELLED (Physician Discretion): foLIC Acid 1 mg IVPB once ld1 21:18 Drug: Tylenol 1000 mg Route: PO; ld1 23:06 Drug: Lasix (furosemide) 100 mg Route: IVP; Site: right antecubital; ld1 Disposition: 03/11 07:04 Co-signature as Attending Physician, Doyle Chauhan MD I agree with the assessment and [facility] plan of care. Disposition Summary: 03/10/21 23:49 Discharge Ordered Location: Home cp Problem: new cp Symptoms: have improved cp Condition: Stable cp Diagnosis - Pain in right knee cp - Edema, unspecified cp Followup: cp - With: Private Physician - When: 1 - 2 days - Reason: Recheck today's complaints Discharge Instructions: - Discharge Summary Sheet cp - Elastic Bandage and RICE Therapy cp - Edema cp - Acute Knee Pain, Adult cp Forms: - Medication Reconciliation Form cp - Thank You Letter cp - Antibiotic Education cp - Prescription Opioid Use cp Signatures: Dispatcher [employer] Doyle Leone MD MD cha Page, Corey, PA PA cp Lesly La RN RN ca1 Dibbern, Lauren, RN RN ld1 Corrections: (The following items were deleted from the chart) 03/10 21:06 21:04 Onset: The symptoms/episode began/occurred 3 day(s) ago, [facility] 21: 21:04 Duration: The symptoms are continuous, and are unchanged since they started, [facility] :06 21:04 This 65 yrs old Male presents to ER via Ambulatory with complaints of fab Knee Pain, KNEE SWELLING. fab : 21:03 NS 0.9% 1000 ml IV at 75 ml/hr continuous ordered. [facility] ld1 : 21:03 Aspirin 81 mg PO once; if ct head negative ordered. [facility] ld1 21:03 foLIC Acid 1 mg IVPB once ordered. [facility] ld1 21:03 Cardiac monitoring ordered. [facility] ld1 21:03 EKG - Nurse/Tech ordered. [facility] ld1 21:03 IV Saline Lock ordered. [facility] ld1 21:03 Labs collected and sent ordered. [facility] ld1 21:03 Oxygen Per Protocol ordered. [facility] : 21:04 PROTIME (+INR)+COAG.LAB.BRZ ordered. EDMS EDMS 21: 21:04 Urine Culture+BA.LAB.BRZ ordered. EDMS EDMS 21: 21:04 BASIC METABOLIC PANEL+C.LAB.BRZ ordered. EDMS EDMS 21: 21:04 CBC+H.LAB.BRZ ordered. EDMS EDMS 21: 21:04 HEPATIC FUNCTION+C.LAB.BRZ ordered. EDMS EDMS 21: 21:04 MAGNESIUM+C.LAB.BRZ ordered. EDMS EDMS 21: 21:04 PROBNP+C.LAB.BRZ ordered. EDMS EDMS 21: 21:04 TROPONIN (EMERG DEPT USE ONLY)+C.LAB.BRZ ordered. EDMS EDMS 21: 21:04 WESTERGREN SEDRATE+H.LAB.BRZ ordered. EDMS EDMS 21: 21:04 C-REACTIVE PROTEIN+C.LAB.BRZ ordered. EDMS EDMS 22:08 21:03 Urine Dipstick-Ancillary ordered. [facility] ld1
[2021-03-11 00:35] VITALS: O2SAT 96
[2021-03-11 00:40] VITALS: TEMP 98.3
[2021-03-11 00:47] VITALS: BP 128/60
--- NOTE | 2021-03-11 07:28 | EKG ---
Test Date: 2021-03-10 Test Time: 21:29:51 [employer] Center Manager: PERLA MEASUREMENT RESULTS: Intervals: Rate: 65 [place]: 188 QRSD: 124 QT: 430 QTc: 447 [place]: P: 23 [place]: 188 QRS: -22 T: 21 INTERPRETIVE STATEMENTS: Normal sinus rhythm RSR' or QR pattern in V1 suggests right ventricular conduction delay Inferior infarct, age undetermined Anterior infarct, age undetermined Abnormal ECG Compared to ECG 09/13/2020 01:16:28 RSR' in V1 or V2 now present Ventricular premature complex(es) no longer present Right bundle-branch block no longer present T-wave abnormality no longer present Possible ischemia no longer present Myocardial infarct finding still present Electronically Signed On 03-11-21 07:27:44 CDT by Ede Linton
--- NOTE | 2021-03-11 09:07 | RAD REPORT ---
EXAM DESCRIPTION: RAD - Knee Right 3 View - 03/10/2021 11:26 pm CLINICAL HISTORY: PAIN COMPARISON: Knee Right 3 View dated 10/26/2016 FINDINGS: Diffuse osteopenia is noted. No acute fracture or dislocation evident. Vascular atheroscle rosis. Mild suprapatellar joint effusion.
== END 2021-03-10 23:57 | disposition home or self-care (01) ==
LOC: ER 20:29
DX: R60.9 Edema, unspecified (principal); I10 Essential (primary) hypertension
CPT/HCPCS: 36415; 70450; 71045; 80048; 80076; 83735; 83880; 84484; 85025; 85610; 93005; 93970; 96374; 99284

== ENCOUNTER 2021-07-21 06:08 | Emergency (ER) | payer OTHER ==
--- OUTSIDE RECORDS SUMMARY | 2021-07-21 06:20 | XMS REPORT | Continuity of Care Document ---
:1955 Author Organization [facility] t Address [address] [place] [address] Care Team Providers Name Role Phone Nando Olson MD Primary Care Physician YVROSE ARENAS Attending Clinician Unavailable Erasmo Attending Clinician Unavailable OSCAR Attending Clinician Unavailable ENOCH Attending Clinician Unavailable VIKTORIA Attending Clinician Unavailable MD ANNABELLE MOORE Attending Clinician Unavailable Fan HART Attending Clinician Tarun HART Attending Clinician MICHELLE Attending Clinician Unavailable Radha HART Attending Clinician Demarco HART Attending Clinician Deysi DEL RIO, Andreia Attending Clinician Robert HERNANDEZ Attending Clinician Yvrose Arenas MD Attending Clinician Bill HART Attending Clinician Orlando Reis Attending Clinician Unavailable Erin GUAJARDO Attending Clinician YVROSE ARENAS Admitting Clinician Unavailable Edmar Olson Admitting Clinician Unavailable MD ANNABELLE MOORE Admitting Clinician Unavailable Erasmo Admitting Clinician Unavailable JODI Admitting Clinician Unavailable Payers Payer Name Policy Type Policy Number Effective Date Expiration Date S ource MEDICARE A B [id number] 2020 00:00:00 [employer] INDEMNITY [id number] 2020 NON CONTR 00:00:00 Problems Condition Condition Condition Status Onset Resolution Last Treating Co mments Source Name Details Category Date Date Treatment Clinician Date Pericardia Pericardia Disease Active M ethodi l effusion l effusion 02-18 st 00:00: Hospita 00 l ESRD (end ESRD (end Disease Active Met hodi stage stage 02-18 st renal renal 00:00: Hospita disease) disease) 00 l Pleural Pleural Disease Active Methodi effusion, effusion, 02-18 st bilateral bilateral 00:00: Hosp yesi 00 l Essential Essential Disease Active 2019-[address] [facility] hypertensi hypertensi Sweta kes - on on 00:00: Medical 00 Center Thrombocyt Thrombocyt Disease Active 2019-[address] [facility] s/p ACB x2 s/p ACB x2 Disease Active 2019-[address] - - 10[facility]14 [facility] 00:[facility] dical / / 00 Center Difficulty Difficulty Disease Active 2016-08 M ethodi swallowing swallowing 10-19 st 00:00: Hospita 00 l Dysphagia Dysphagia Disease Active 2016-08 [facility] 00:00: Hospita 00 l N18.6 Diagnosis Active 2016-082017-06-01 Mem oria 0-02 11:32:00 l N18.6 00:00: Surveyor 00 Active 05/24/2017 [facility] Type 2 Type 2 Disease Active Methodi diabetes diabetes 05-19 st mellitus mellitus 00:00: Hospit a 00 l WOUND Diagnosis Active 2017-06-08 Mem oria INFECTION 7- 09:19:00 l WOUND 14:12: Colin INFECTION 00 Active 03/04/2017 [facility] ESRD Diagnosis Active 2017-02-26 Mem oria 02-12 06:06:00 l ESRD 00:00: Colin 00 Active 02/12/2017 [facility] Anxiety Problem Active 2017-06-04 Dayron boubacar (finding) 08-23 02:00:03 l Anxiety 00:00: Colin (finding) 00 Active 08/23/2011 Problem 06/04/2017 VLADIMIR [facility] ESRD on ESRD on Disease Active [facility] Myocardial Problem Resolve 2017-06-04 Memoria infarction d 02:00:03 l (disorder) Michael n Myocardial infarction (disorder) Resolved Problem 06/04/20171998 [facility] Conduction Problem Active 2017-06-04 M emoria disorder 02:00:03 l of the Surveyor heart Conduction (disorder) disorder of the heart (disorder) Active Problem 06/04/2017 [facility] Cerebrovas Problem Active 2017-06-04 M emoria cular 02:00:03 l accident Colin (disorder) Cerebrovas cular accident (disorder) Active Problem 06/04/2017 [facility] Dependence Problem Active 2017-06-04 M emoria on 02:00:03 l continuous Michael n positive Dependence airway on pressure continuous ventilatio positive n airway (finding) pressure ventilatio n (finding) Active Problem 06/04/2017 not using at this time [facility] Diabetes Problem Active 2017-06-04 Mem oria mellitus 02:00:03 l (disorder) Diabetes He rmann mellitus (disorder) Active Problem 06/04/2017 [facility] Hyperlipid Problem Active 2017-06-04 M emoria emia 02:00:03 l (disorder) Michael n Hyperlipid emia (disorder) Active Problem 06/04/2017 [facility] Hypertensi Problem Active 2017-06-04 M emoria ve 02:00:03 l disorder, Colin systemic Hypertensi arterial ve (disorder) disorder, systemic arterial (disorder) Active Problem 06/04/2017 [facility] Obesity Problem Active 2017-06-04 Dayron boubacar (disorder) 02:00:03 l Obesity Colin (disorder) Active Problem 06/04/2017 [facility] Peripheral Problem Active 2017-06-04 M emoria vascular 02:00:03 l disease Surveyor (disorder) Peripheral vascular disease (disorder) Active Problem 06/04/2017 swolling [facility] Sleep Problem Active 2017-06-04 Memor ia apnea 02:00:03 l (finding) Sleep Michael n apnea (finding) [facility] Fracture Problem Resolve 2017-06-04 Me moria of d 02:00:03 l shoulder Fracture Herm doris (disorder) of shoulder (disorder) Resolved Problem 06/04/20172012 VLADIMIR [facility], [facility] Intracrani Problem Resolve 2017-06-04 Memoria al venous d 02:00:03 l thrombosis Michael n (disorder) Intracrani al venous thrombosis (disorder) Resolved Problem 06/04/2017 patietn had stroke [facility], [facility] History of Past Illness Condition Condition Condition Status Onset Resolution Last Treating Co mments Source Name Details Category Date Date Treatment Clinician Date Infection Problem 2017-03-07 2017-03-07 Memoria following 03-04 04:57:57 04:57:57 l a 05:00: Colin procedure, Infection 00 initial following encounter a procedure, initial encounter 03/04/2017 03/07/2017 [facility] Arterioven Problem 2017-03-07 2017-03-07 Memoria ous 03-04 04:57:57 04:57:57 l fistula, 05:00: Surveyor acquired Arterioven 00 ous fistula, acquired 7 03/07/2017 [facility] Allergies, Adverse Reactions, Alerts Allergy Allergy Status Severity Reaction(s) Onset Inactive Treating Comm ents Source Name Type Date Date Clinician No Known DA Active U 0 [facility] s 00:00: [place] 00 [facility] No Known DA Active U 2020-0 [facility] Allergie 9-15 Clear s 00:00: [place] 00 [facility] No Known DA Active U 2020-0 [facility] Allergie 8-02 Clear s 00:00: [place] 00 [facility] No Known DA Active U 2020-0 [facility] Allergie 8-02 Clear s 00:00: [place] 00 [facility] NO KNOWN Allergy Active [facility] S [facility] Family History Family Member Diagnosis Comments Start Date Stop Date Source Natural mother Diabetes [facility] Natural mother Hypertension [facility] Social History Social Habit Start Date Stop Date Quantity Comments Source History SDOH [facility] Std Drinks Medica l Center History SDOH [facility] - Alcohol Binge Medical Jenaro ter History SDOH [facility] - Alcohol Comment Medical C enter History of tobacco Chews Tobacco Met hodist use Hospital Exposure to Not sure [facility] SARS-CoV-2 (event) Hospit al Alcohol intake 2020-09-03 2020-09-[address] [facility] - 00:00:00 00:00:00 non-drinker Medical Gabriel nunez (finding) Cigarettes smoked 2020-08-08 2020-08-[address] [facility] - current (pack per 00:00:00 00:00:00 Medical Center day) - Reported Cigarette 2020-08-08 2020-08-[address] [facility] - pack-years 00:00:00 00:00:00 [facility] Tobacco use and 2020-08-08 2020-08-[address] [facility] - exposure 00:00:00 00:00:00 [facility] History SDOH 2020-08-08 2020-08-08 1 [facility] - Alcohol Frequency 00:00:00 00:00:00 [facility] Social History 2017-02-24 2017-02-24 [facility] 13:49:27 13:49:27 Sex [birth year] YENNY Jarvis - 00:00:00 00:00:00 [facility] Smoking Status Start Date Stop Date Source Former smoker 2021-03-07 00:00:00 2021-03-07 00:00:00 [facility] Medications Ordered Filled Start Stop Current Ordering Indication Dosage Frequency Signature Comments Components Source Medication Medication Date Date Medication? Clinician (SIG) Name Name multivitami Yes 1{capsu QD Take 1 M ethodi n capsule 03-07 le} capsule by st 15:22: mouth Hospita 05 daily. l aspirin Yes 81mg QD Take 81 mg Meth ramana (ECOTRIN) [address] 81 MG 15:22: daily. Hospita enteric 05 l coated tablet pantoprazol 2020- No 40mg Q.5D Take 1 Met hodi e 02-21 0802 tablet (40 st (PROTONIX) 00:00: 04:59 mg total) H ospita 40 MG EC 00 :00 by mouth 2 l tablet (two) times a day for 30 days. amLODIPine 2020- No 5mg QD Take 1 Meth ramana (NORVASC) 5 6-28 07-29 tablet (5 st mg tablet 00:00: 04:59 mg total) Ho spita 00 :00 by mouth l daily for 30 days. lisinopriL No 40mg QD Take 1 Meth ramana (PRINIVIL) 02-17 tablet (40 st 40 mg 00:00: 00:00 mg total) Hospit a tablet 00 :00 by mouth l daily for 30 days. pantoprazol No 40mg QD Take 1 Met hodi e 02-17 tablet (40 st (Protonix) 00:00: 00:00 mg total) H ospita 40 MG EC 00 :00 by mouth l tablet daily for 30 days. carvediloL Yes [...] tablet 42 (two) Center times daily. ferrous 2019-08 No 325mg Take [address] sulfate 325 2-31 12-31 tablet [facility] - (65 FE) MG 00:00: 23:59 (325 mg Med ical tablet 00 :00 total) by Center mouth every other day. losartan 2019-08 No 100mg Take 100 Met hodi (COZAAR) 2-30 12-[address] 100 MG 00:00: 05:59 mouth. Hospita tablet 00 :00 l rosuvastati 2019-08 No 20mg QD Take 1 [...] every 8 (eight) hours. cyanocobala 2019-08 Yes [id number] INJECT 1 Methodi min 1,000 1-[address] mcg/mL 00:00: INTO Hospita injection 00 SHOULDER, l THIGH, OR BUTTOCKS ONCE EVERY 30 DAYS syringe 2019-08 Yes [id number] As Metho di with needle 1-[address] 3 mL 25 x 00:00: Hospita 58" 00 l syringe cyanocobala 2019-08- No [id number] INJECT 1 Methodi min 1,000 1-04 11-[address] mcg/mL 00:00: 00:00 INTO Hospita injection 00 :00 SHOULDER, l THIGH, OR BUTTOCKS ONCE EVERY 30 DAYS cyanocobala 2019- No [id number] INJECT 1 Methodi min 1,000 25 11-[address] mcg/mL 00:00: 00:00 INTO Hospita injection 00 :00 SHOULDER, l THIGH, OR BUTTOCKS ONCE EVERY 30 DAYS omeprazole 2020- No [id number] TAKE 1 Methodi (PriLOSEC) 202-[address] 40 MG 00:00: 00:00 MOUTH Hospita capsule 00 :00 EVERY DAY l syringe 2019- No [id number] As Meth ramana with needle 7-03 -[address] 3 mL 25 x 00:00: 00:00 Hospita 8" 00 :00 l syringe heparin 2016-08 No 5,000 Memoria 0-10 unit, l 21:00: Route: Surveyor 00 SUB-Q, Q8H, Dosing Weight 123.182, kg, Start date: 06/01/17 16:00:00 CDT, Duration: 30 day, Stop date: 07/01/17 8:00:00 SUPERVISOR [employer]IL[employer] heparin 2016-08 No 5,000 Memoria 0-10 unit, l 21:00: Route: Surveyor 00 SUB-Q, Q8H, Dosing Weight 123.182, kg, Start date: 06/01/17 16:00:00 CDT, Duration: 30 day, Stop date: 07/01/17 8:00:00 SUPERVISOR F[employer]IL[employer] heparin 2016-08 No 5,000 Memoria 0-10 unit, l 21:00: Route: Surveyor 00 SUB-Q, Q8H, Dosing Weight 123.182, kg, Start date: 06/01/17 16:00:00 CDT, Duration: 30 day, Stop date: 07/01/17 8:00:00 SUPERVISOR FERTILIZER Ofirmev 2016-08 No 1,000 mg, Memor ia 0-10 Route: IV, l 19:37: ONCE, Dosing Weight 123.182, kg, Start date: 06/01/17 14:37:00 CDT, Stop date: 06/01/17 14:37:00 [facility] No 1,000 mg, Memor ia 0-10 Route: IV, l 19:37: ONCE, Dosing Weight 123.182, kg, Start date: 06/01/17 14:37:00 CDT, Stop date: 06/01/17 14:37:00 CDT [facility] 2016-08 No 1,000 mg, Memor ia 0-10 [...] ne 0-10 0.5 mL, l 19:07: Route: Surveyor 00 IVP, Drug form: INJ, Q5Min, Dosing Weight [...] (4 gm/day). (Same as: Tylenol Extra Strength) Insulin 2016-08 No Notes: Memoria Lispro 0-10 [...] moria e 0-10 Route: l 19:07: IVPB, Surveyor 00 ONCE, Dosing Weight 123.182, kg, PRN Nausea [...] l 19:07: Lopressor) Push over 2 minutes Insulin 2016-08 No Notes: Memoria Lispro 0-10 [...] de 0-10 Route: IV, l 19:07: ONCE, Surveyor 00 Dosing Weight 123.182, kg, PRN Cramps, Start date: 06/01/17 14:07:00 CDT Ondansetron 2016-08 No Notes: Dayron boubacar 0-10 (Same as: l 19:07: Zofran) MEDICATION WASTE Product Size: 4 mg Product Wasted: ___ mg Meperidine 2016-08 No Notes: Memor ia 0-10 (Same as: l 19:07: Demerol) "Use Precaution in Elderly, Seizure disorders, and Renal impairment " Acetaminoph 2016-08 No Notes: Max Memoria en 0-10 acetaminop l 19:07: hen 4000 Surveyor 00 mg/day (4 gm/day). (Same as: Tylenol Extra Strength) Promethazin 2016-08 No 6.25 mg, Me moria e 0-10 Route: l 19:07: IVPB, Colin 00 ONCE, Dosing Weight 123.182, kg, PRN Nausea & Vomiting, Start date: 06/01/17 14:07:00 CDT Fentanyl 2016-08 No Notes: Memoria 0-10 (Same as: l 19:07: Sublimaze) Preservat jose free. Hydromorpho 2016-08 No 0.5 mg, Mem oria ne 0-10 0.5 mL, l 19:07: Route: Colin 00 IVP, Drug form: INJ, Q5Min, Dosing Weight 123.182, kg, PRN Pain Score 7-10, Start date: 06/01/17 14:07:00 CDT, Duration: 4 doses or times, Stop date: Limited # of times Flumazenil 2016-08 No Notes: Memor ia 0-10 (Same as: l 19:07: Romazicon) Colin 00 Naloxone 2016-08 No Notes: Memoria 0-10 Same [...] en 0-10 acetaminop l 19:07: hen 4000 Surveyor 00 mg/day (4 gm/day). (Same as: Tylenol Extra Strength) Acetaminoph 2016-08 Yes 2 tab, PO, Memoria en 300 MG / 0-10 Q4H, PRN l Codeine 19:01: Pain Score Herm doris Phosphate 00 4-6, # 24 30 MG Oral tab, 0 Tablet Refill(s) Acetaminoph 2016-08 Yes 2 tab, PO, Memoria en 300 MG / 0-10 Q4H, PRN l Codeine 19:01: Pain Score Herm doris Phosphate 00 4-6, # 24 30 MG Oral tab, 0 Tablet Refill(s) Acetaminoph 2016-08 Yes 2 tab, PO, Memoria [...] 0-10 not exceed l 18:58: 4 gm/day. (Same as: Tylenol) Zofran 2016-08 No Notes: Memoria 0-10 (Same as: l 18:58: Zofran) MEDICATION WASTE Product Size: 4 mg Product Wasted: ___ mg acetaminoph 2016-08 No Notes: Do M emoria en-codeine 0-10 not exceed l #3 18:58: 4gm/day of Colin 00 acetaminop hen. (Same as: Tylenol with Codeine # 3) Acetaminoph 2016-08 No Notes: Do M emoria en 0-10 not exceed l 18:58: 4 gm/day. Surveyor 00 (Same as: Tylenol) Zofran 2016-08 No Notes: Memoria 0-10 (Same as: l 18:58: Zofran) MEDICATION WASTE Product Size: 4 mg Product Wasted: ___ mg acetaminoph 2016-08 No Notes: Do M emoria en-codeine 0-10 not exceed l #3 18:58: 4gm/day of acetaminop hen. (Same as: Tylenol with Codeine # 3) Acetaminoph 2016-08 No Notes: Do M emoria en 0-10 not exceed l 18:58: 4 gm/day. (Same as: Tylenol) vancomycin 2016-08 No Route: [...] INJ, ONCE, Stop date: 06/01/17 12:53:00 CDT vancomycin 2016-08 No Route: IV, M emoria [...] INJ, ONCE, Stop date: 06/01/17 12:53:00 CDT vancomycin 2016-08 No Route: IV, M emoria [...] times, ABX Indication : Surgical Prophylaxi s Cefazolin 2016-08 No 2 gm, Memoria 0-10 Route: l 16:00: IVPB, Drug Colin 00 form: INJ, ONCALL, Dosing Weight 123.636, kg, Start date: 06/01/17 11:00:00 CDT, Duration: 1 doses or times, ABX Indication : Surgical Prophylaxi s Cefazolin 2016-08 No 2 gm, Memoria 0-10 [...] CDT, ABX Indication : Surgical Prophylaxi s Vancomycin 2016-08 No 1 gm, Memori a 0-10 Route: IV, l 15:14: ONCE, Dosing Weight 123.636, kg, Start date: 06/01/17 10:14:00 CDT, Stop date: 06/01/17 10:14:00 CDT, ABX Indication : Surgical Prophylaxi s Vancomycin 2016-08 No 1 gm, Memori a 0-10 Route: IV, l 15:14: ONCE, Dosing Weight 123.636, kg, Start date: 06/01/17 10:14:00 CDT, Stop date: 06/01/17 10:14:00 CDT, ABX Indication : Surgical Prophylaxi s Benadryl No Notes: Memoria 7-13 (Same as: l 22:50: Benadryl) Benadryl No Notes: Memoria 7-13 (Same as: l 22:50: Benadryl) Benadryl No Notes: Memoria 7-13 (Same as: l 22:50: Benadryl) Ceftriaxone No 1 gm, Memor ia 7- Route: l 21:11: IVPB, Drug form: PDR/INJ, ONCE, Dosing Weight 123.636, kg, Priority: STAT, Start date: 03/04/17 16:11:00 CDT, Duration: 1 doses or times, Stop date: 03/04/17 16:11:00 CDT, ABX Indication : Skin/Soft Tissue Infection Vancomycin 2017-0 No 2000 mg: Me moria 7-13 infuse l 21:11: over 2.5 Colin 00 hours MEDICATION WASTE Product Size: 1000 mg Product Wasted: ___ mg Ceftriaxone 2017-0 No 1 gm, Memor ia 7-13 Route: l 21:11: IVPB, Drug Surveyor 00 form: PDR/INJ, ONCE, Dosing Weight 123.636, kg, Priority: STAT, Start date: 03/04/17 16:11:00 CDT, Duration: 1 doses or times, Stop date: 03/04/17 16:11:00 CDT, ABX Indication : Skin/Soft Tissue Infection Vancomycin 2017-0 No 2000 mg: Me moria 7-13 infuse l 21:11: over 2.5 Surveyor 00 hours MEDICATION WASTE Product Size: 1000 mg Product Wasted: ___ mg Ceftriaxone 2017-0 No 1 gm, Memor ia 7 Route: l 21:11: IVPB, Drug Colin 00 form: PDR/INJ, ONCE, Dosing Weight 123.636, kg, Priority: STAT, Start date: 03/04/17 16:11:00 CDT, Duration: 1 doses or times, Stop date: 03/04/17 16:11:00 CDT, ABX Indication : Skin/Soft Tissue Infection Vancomycin 2017-0 No 2000 mg: Me moria 7-13 infuse l 21:11: over 2.5 Surveyor 00 hours MEDICATION WASTE Product Size: 1000 mg Product Wasted: ___ mg Cephalexin 2017-0 Yes 500 mg = 1 M emoria 500 MG Oral 7-13 cap, PO, l Capsule 21:00: BID, X 10 Anel nn [Keflex] 00 day, # 20 cap, 0 Refill(s) Cephalexin 2017-0 Yes 500 mg = 1 M emoria 500 MG Oral 7-13 cap, PO, l Capsule 21:00: BID, X 10 Anel nn [Keflex] 00 day, # 20 cap, 0 Refill(s) Cephalexin 2017-0 Yes 500 mg = 1 M emoria 500 MG Oral 7-13 cap, PO, l Capsule 21:00: BID, X 10 Anel nn [Keflex] 00 day, # 20 cap, 0 Refill(s) doxycycline Yes 100 mg = 1 Memoria hyclate 100 7-13 tab, PO, l MG Oral 20:59: Q12H, X 10 Herm doris Tablet 00 day, # 20 tab, 0 Refill(s) doxycycline Yes 100 mg = 1 Memoria hyclate 100 7-13 tab, PO, l MG Oral 20:59: Q12H, X 10 Herm doris Tablet 00 day, # 20 tab, 0 Refill(s) doxycycline Yes 100 mg = 1 Memoria hyclate 100 7-13 tab, PO, l MG Oral 20:59: Q12H, X 10 Herm doris Tablet 00 day, # 20 tab, 0 Refill(s) heparin No Notes: Memoria 7-07 porcine l 21:00: heparin heparin No Notes: Memoria 7-07 porcine l 21:00: heparin heparin No Notes: Memoria 7-07 porcine l 21:00: heparin Metoclopram No Notes: Dayron boubacar marie 707 (Same as: l 16:26: Reglan) Flumazenil No Notes: Memor ia 7 (Same as: l 16:26: Romazicon) Naloxone No Notes: Memoria 7-07 Same as l 16:26: Narcan Fentanyl No Notes: Memoria 7-07 (Same as: l 16:26: Sublimaze) Preservat jose free. Ondansetron No 4 mg, Memor ia 02-26 Route: l 16:26: IVP, ONCE, Dosing Weight 124.091, kg, PRN Nausea & Vomiting, Start date: 02/26/17 11:26:00 CDT Labetalol No Notes: Memori a -07 (Same as: l 16:26: Normodyne, Trandate) Push over 2 minutes Give bolus over 2-3 minutes. Hydralazine 2017-0 No Notes: Dayron boubacar 7-07 (Same as: l 16:26: Apresoline Colin 00 ) Push over 5 minutes Metoclopram No Notes: Dayron boubacar marie 7-07 (Same as: l 16:26: Reglan) Colin 00 Flumazenil No Notes: Memor ia 7-07 (Same as: l 16:26: Romazicon) Colin 00 Naloxone 2016- No Notes: Memoria 7-07 Same as l 16:26: Narcan Surveyor 00 Fentanyl No Notes: Memoria 7-07 (Same as: l 16:26: Sublimaze) Surveyor 00 Preservat jose free. Ondansetron No 4 mg, Memor ia 7-07 Route: l 16:26: IVP, ONCE, Surveyor 00 Dosing Weight 124.091, kg, PRN Nausea & Vomiting, Start date: 02/26/17 11:26:00 CDT Labetalol No Notes: Memori a 7-07 (Same as: l 16:26: Normodyne, Surveyor 00 Trandate) Push over 2 minutes Give bolus over 2-3 minutes. Hydralazine No Notes: Dayron boubacar 7-07 (Same as: l 16:26: Apresoline ) Push over 5 minutes Metoclopram No Notes: Dayron boubacar marie 7-07 (Same as: l 16:26: Reglan) Flumazenil No Notes: Memor ia 7-07 (Same as: l 16:26: Romazicon) Colin Naloxone 0 No Notes: Memoria 7-07 Same as l 16:26: Narcan Colin 00 Fentanyl No Notes: Memoria 7-07 (Same as: l 16:26: Sublimaze) Surveyor 00 Preservat jose free. Ondansetron 0 No 4 mg, Memor ia 7-07 Route: l 16:26: IVP, ONCE, Surveyor 00 Dosing Weight 124.091, kg, PRN Nausea & Vomiting, Start date: 02/26/17 11:26:00 CDT Labetalol 2016-0 No Notes: Memori a 7-07 (Same as: l 16:26: Normodyne, Trandate) Push over 2 minutes Give bolus over 2-3 minutes. Hydralazine No Notes: Dayron boubacar 02-26 (Same as: l 16:26: Apresoline ) Push over 5 minutes Acetaminoph Yes 2 tab, PO, Memoria en 300 MG / 02-26 Q4H, PRN l Codeine 15:19: Pain Score Herm doris Phosphate 00 4-6, # 24 30 MG Oral tab, 0 Tablet Refill(s) Acetaminoph Yes 2 tab, PO, Memoria en 300 MG / 02-26 Q4H, PRN l Codeine 15:19: Pain Score Herm doris Phosphate 00 4-6, # 24 30 MG Oral tab, 0 Tablet Refill(s) Acetaminoph Yes 2 tab, PO, Memoria en [...] 02-26 not exceed l 15:17: 4 gm/day. Surveyor (Same as: Tylenol) Zofran No Notes: Memoria 02-26 (Same as: l 15:17: Zofran) Surveyor MEDICATION WASTE Product Size: 4 mg Product Wasted: ___ mg acetaminoph No Notes: Do M emoria en-codeine 02-26 not exceed l #3 15:17: 4gm/day of Surveyor 00 acetaminop hen. (Same as: Tylenol with Codeine # 3) Acetaminoph No Notes: Do M emoria en 02-26 not exceed l 15:17: 4 gm/day. (Same as: Tylenol) Zofran No Notes: Memoria 02-26 (Same as: [...] INJ, ONCE, Stop date: 02/26/17 10:10:00 CDT protamine No Route: IV, Me moria (ANES) 02-26 Drug form: l 15:10: INJ, ONCE, Stop date: 02/26/17 10:10:00 CDT protamine No Route: IV, Me moria (ANES) 02-26 Drug form: l 15:10: INJ, ONCE, Stop date: 02/26/17 10:10:00 CDT heparin 0 No Route: IV, Dayron boubacar (ANES) 02-26 Drug form: l 15:06: INJ, ONCE, Stop date: 02/26/17 10:06:00 CDT heparin 0 No Route: IV, Dayron boubacar (ANES) 02-26 Drug form: l 15:06: INJ, ONCE, Stop date: 02/26/17 10:06:00 CDT heparin 0 No Route: IV, Dayron boubacar (ANES) 02-26 Drug form: l 15:06: INJ, ONCE, Stop date: 02/26/17 10:06:00 CDT propofol 0 No Route: IV, Mem oria (ANES) 02-26 Drug form: l 14:41: INJ, ONCE, Colin 00 Stop date: 02/26/17 9:41:00 CDT propofol 2017-0 No Route: IV, Mem oria (ANES) 02-26 Drug form: l 14:41: INJ, ONCE, Colin 00 Stop date: 02/26/17 9:41:00 CDT propofol 2017-0 No Route: IV, Mem oria (ANES) 02-26 Drug form: l 14:41: INJ, ONCE, Surveyor Stop date: 02/26/17 9:41:00 CDT fentaNYL 2017-0 No Route: IV, Mem oria (ANES) 02-26 Drug form: l 14:31: INJ, ONCE, Surveyor Stop date: 02/26/17 9:31:00 CDT fentaNYL 2017-0 No Route: IV, Mem oria (ANES) 02-26 Drug form: l 14:31: INJ, ONCE, Colin Stop date: 02/26/17 9:31:00 CDT fentaNYL 2017-0 No Route: IV, Mem oria (ANES) 02-26 Drug form: l 14:31: INJ, ONCE, Colin Stop date: 02/26/17 9:31:00 CDT midazolam 2017-0 No Route: IV, Me moria (ANES) 02-26 Drug form: l 14:26: SOLN, Surveyor 00 ONCE, Stop date: 02/26/17 9:26:00 CDT midazolam 2017-0 No Route: IV, Me moria (ANES) 02-26 Drug form: l 14:26: SOLN, Colin 00 ONCE, Stop date: 02/26/17 9:26:00 CDT midazolam 2017-0 No Route: IV, Me moria (ANES) 02-26 Drug form: l 14:26: SOLN, Surveyor 00 ONCE, Stop date: 02/26/17 9:26:00 CDT vancomycin 2017-0 No Route: IV, M emoria (ANES) 02-26 Drug form: l (ANES) 14:09: INJ, Start Anel nn 00 date: 02/26/17 9:09:00 CDT, Stop date: 02/26/17 10:09:00 CDT vancomycin 2017-0 No Route: IV, M emoria (ANES) 02-26 Drug form: l (ANES) 14:09: INJ, Start Anel date: 02/26/17 9:09:00 CDT, Stop date: 02/26/17 10:09:00 CDT vancomycin 2017-0 No Route: IV, Nelson cruz (ANES) 02-26 Drug form: l (ANES) 14:09: INJ, Start Anel nn date: 02/26/17 9:09:00 CDT, Stop date: 02/26/17 10:09:00 CDT sodium 2017-0 No Route: IV, Memor ia chloride 7-07 Total l 0.9% 500 ml 13:49: Volume: Her martínez INJ (ANES) 00 500, Start date: 02/26/17 8:49:00 CDT, Stop date: 02/26/17 9:49:00 CDT sodium 2017-0 No Route: IV, Memor ia chloride 7-07 Total l 0.9% 500 ml 13:49: Volume: Her martínez INJ (ANES) 00 500, Start date: 02/26/17 8:49:00 CDT, Stop date: 02/26/17 9:49:00 CDT sodium 2017-0 No Route: IV, Memor ia chloride 7-07 Total l 0.9% 500 ml 13:49: Volume: Her martínez INJ (ANES) 00 500, Start date: 02/26/17 8:49:00 CDT, Stop date: 02/26/17 9:49:00 CDT Cefazolin 2016-0 No Notes: Memori a 02-26 Same as: l 12:00: Ancef Surveyor Cefazolin 2016-0 No Notes: Memori a 02-26 Same as: l 12:00: Ancef Colin 00 Cefazolin 2016-0 No Notes: Memori a 02-26 Same as: l 12:00: Ancef Colin 00 insulin 2016-0 Yes 15 UNITS, Memor ia detemir 100 7-05 SUB-Q, l UNT/ML 14:25: BID, am Colin Injectable 00 AND pm Solution MEALS [Levemir] insulin Yes 15 UNITS, Memor ia detemir 100 7-05 SUB-Q, l UNT/ML 14:25: BID, am Colin Injectable 00 AND pm Solution MEALS [Levemir] insulin 2017 Yes 15 UNITS, Memor ia detemir 100 7-05 SUB-Q, l UNT/ML 14:25: BID, am Colin Injectable 00 AND pm Solution MEALS [Levemir] Probiotic 2017 Yes 1 cap, PO, Me moria Formula 7-05 Daily, l 14:24: PROBIOTIC Surveyor 00 PEARLS COMPLETE( DIGESTIVE hEALTH) Probiotic 2017 Yes 1 cap, PO, Me moria Formula 7-05 Daily, l 14:24: PROBIOTIC Surveyor PEARLS COMPLETE( DIGESTIVE hEALTH) Probiotic 2017 Yes 1 cap, PO, Me moria Formula 7-05 Daily, l 14:24: PROBIOTIC Surveyor 00 PEARLS COMPLETE( DIGESTIVE hEALTH) Multiple 2017 Yes 1 tab, PO, Mem oria Vitamins 7-05 Daily, l oral tablet 14:22: SPECTRAVIT Surveyor 00 E ( ULTRA MEN 50 PLUS) Multiple 2017 Yes 1 tab, PO, Mem oria Vitamins 7-05 Daily, l oral tablet 14:22: SPECTRAVIT Colin 00 E ( ULTRA MEN 50 PLUS) Multiple Yes 1 tab, PO, Mem oria Vitamins 7-05 Daily, l oral tablet 14:22: SPECTRAVIT Colin 00 E ( ULTRA MEN 50 PLUS) Calcium 2017 Yes 250 mg, Memoria Carbonate 7-05 PO, BID l 14:21: Colin 00 Calcium 2017 Yes 250 mg, Memoria Carbonate 7-05 PO, BID l 14:21: Colin 00 Calcium 2017- Yes 250 mg, Memoria Carbonate 7-05 PO, BID l 14:21: Surveyor 00 ferrous Yes 325 mg = 1 Dayron boubacar sulfate 325 7-05 tab, PO, l mg oral 14:20: TID Surveyor enteric 00 coated tablet ferrous 2017 Yes 325 mg = 1 Dayron boubacar sulfate 325 7-05 tab, PO, l mg oral 14:20: TID Colin enteric 00 coated tablet ferrous Yes 325 mg = 1 Dayron boubacar sulfate 325 7-05 tab, PO, l mg oral 14:20: TID Surveyor enteric 00 coated tablet calcitriol Yes 0.25 Memoria 0.25 mcg 7-05 microgram l oral 14:18: = 1 cap, Colin capsule 00 PO, Every Other Day calcitriol 2017-0 Yes 0.25 Memoria 0.25 mcg 7-05 microgram l oral 14:18: = 1 cap, Surveyor capsule 00 PO, Every Other Day calcitriol 2017-0 Yes 0.25 Memoria 0.25 mcg 7-05 microgram l oral 14:18: = 1 cap, Surveyor capsule 00 PO, Every Other Day rosuvastati 2017-0 Yes 5 mg = 1 Me moria n 5 mg oral 7-05 tab, PO, l tablet 14:17: Daily Surveyor rosuvastati 2017-0 Yes 5 mg = 1 Me moria n 5 mg oral 7-05 tab, PO, l tablet 14:17: Daily Surveyor rosuvastati 2017-0 Yes 5 mg = 1 Me moria n 5 mg oral 7-05 tab, PO, l tablet 14:17: Daily Colin allopurinol 2016-0 Yes 50 mg, PO, Memoria 100 mg oral 7-05 Daily l tablet 14:16: Surveyor allopurinol 2017-0 Yes 50 mg, PO, Memoria 100 mg oral 7-05 Daily l tablet 14:16: Surveyor allopurinol 2017-0 Yes 50 mg, PO, Memoria 100 mg oral 7-05 Daily l tablet 14:16: Colin 00 Hydralazine 2017-0 Yes 50 mg = 1 M emoria Hydrochlori 7-05 tab, PO, l de 50 MG 14:15: TID Surveyor Oral Tablet Hydralazine 2017-0 Yes 50 mg = 1 M emoria Hydrochlori 7-05 tab, PO, l de 50 MG 14:15: TID Colin Oral Tablet Hydralazine 2017-0 Yes 50 mg = 1 M emoria Hydrochlori 7-05 tab, PO, l de 50 MG 14:15: TID Colin Oral Tablet 00 carvedilol 2016-0 Yes 6.25 mg = Me moria 6.25 mg 7-05 1 tab, PO, l oral tablet 14:14: BID Michael n carvedilol 2016-0 Yes 6.25 mg = Me moria 6.25 mg 7-05 1 tab, PO, l oral tablet 14:14: BID Michael n 00 carvedilol 2016-0 Yes 6.25 mg = Me moria 6.25 mg 7-05 1 tab, PO, l oral tablet 14:14: BID Michael n 00 gabapentin 2017-0 Yes 200 mg = 2 M emoria 100 MG Oral 7-05 cap, PO, l Capsule 14:12: AFTER DIALYSIS gabapentin 2017-0 Yes 200 mg = 2 M emoria 100 MG Oral 7-05 cap, PO, l Capsule 14:12: AFTER DIALYSIS gabapentin 2017-0 Yes 200 mg = 2 M emoria 100 MG Oral 7-05 cap, PO, l Capsule 14:12: AFTER DIALYSIS sevelamer 20170 Yes 800 mg = 1 Me moria carbonate 7-05 tab, PO, l 800 MG Oral 14:11: TID-Meals H ermann Tablet 00 [Renvela] Sodium 20170 Yes 650 mg = 1 Memor ia Bicarbonate 7-05 tab, PO, l 650 MG Oral 14:11: TID Michael n Tablet 00 sevelamer 20170 Yes 800 mg = 1 Me moria carbonate 7-05 tab, PO, l 800 MG Oral 14:11: TID-Meals H ermann Tablet [Renvela] Sodium 20170 Yes 650 mg = 1 Memor ia Bicarbonate 7-05 tab, PO, l 650 MG Oral 14:11: TID Michael n Tablet 00 sevelamer 20170 Yes 800 mg = 1 Me moria carbonate 7-05 tab, PO, l 800 MG Oral 14:11: TID-Meals H ermann Tablet [Renvela] Sodium 20170 Yes 650 mg = 1 Memor ia Bicarbonate 7-05 tab, PO, l 650 MG Oral 14:11: TID Michael n Tablet Furosemide Yes 40 mg = 1 Me moria 40 MG Oral 7-05 tab, PO, l Tablet 14:10: Bedtime Furosemide 20170 Yes 40 mg = 1 Me moria 40 MG Oral 7-05 tab, PO, l Tablet 14:10: Bedtime Furosemide 20170 Yes 40 mg = 1 Me moria 40 MG Oral 7-05 tab, PO, l Tablet 14:10: Bedtime Furosemide 0 Yes 80 mg = 2 Me moria 40 MG Oral 7-05 tab, PO, l Tablet 14:07: QA Furosemide 20170 Yes 80 mg = 2 Me moria 40 MG Oral 7-05 tab, PO, l Tablet 14:07: QA Colin Furosemide Yes 80 mg = 2 Me moria 40 MG Oral 7-05 tab, PO, l Tablet 14:07: QA Colin 00 apixaban Yes 2.5 mg = 1 Mem oria 2.5 MG Oral 7-05 tab, PO, l Tablet 14:04: BID Surveyor [Eliquis] apixaban Yes 2.5 mg = 1 Mem oria 2.5 MG Oral 7-05 tab, PO, l Tablet 14:04: BID Surveyor [Eliquis] apixaban Yes 2.5 mg = 1 Mem oria 2.5 MG Oral 7-05 tab, PO, l Tablet 14:04: BID Colin [Eliquis] furosemide Yes TWICE Method i (LASIX) 40 7-[address] mg tablet 00:00: 9am & 5pm Hos finesse 00 l rosuvastati Yes 5mg QD Take 5 mg M ethodi n (CRESTOR) 2-[address] 5 MG tablet 00:00: once Hospit a 00 daily. l carvediloL Yes 12.5mg Q.5D 12.5 mg 2 Methodi (COREG) 2-22 (two) st 12.5 MG 00:00: times a Hospita tablet 00 day with l meals. calcitriol Yes .25ug Q2D Take 0.25 M ethodi (ROCALTROL) 2-[address] 0.25 MCG 00:00: mouth Hospita capsule 00 every l other day. ELIQUIS 2.5 2020- No 2.5mg Q.5D Take 2.5 Methodi mg tablet 2-14 07-[address] 00:00: 00:00 mouth 2 Hospita 00 :00 (two) l times a day. calcium Yes 1{tbl} Q.5D Take 1 Method i carbonate 2-[address] oyster 00:00: mouth 2 Hospita shell 00 (two) l (OS-AMBERLY) times a 500 mg day. calcium (1,250 mg) tablet RENVELA 800 2020- No TAKE 2 Met hodi mg tablet 1-25 07-[address] 00:00: 00:00 MOUTH WITH Hospit a 00 :00 EACH MEAL l allopurinol 2015- Yes 100mg QD Take 100 M ethodi (ZYLOPRIM) 2-[address] 100 MG 00:00: mouth once Hospi ta tablet 00 daily. l Immunizations Ordered Immunization Filled Immunization Date Status Commen ts Source Name Name Influenza (IM) 2016-10-27 Completed [facility] 00:[facility]00 Hospita l Vital Signs Vital Name Observation Time Observation Value Comments Source WEIGHT 2020-08-19 10:15:00 91.6 kg WEIGHT 2020-08-19 07:12:00 94.6 kg WEIGHT 2020-08-16 18:00:00 93.2 kg WEIGHT 2020-08-15 03:45:00 96.163 kg WEIGHT 2020-08-14 04:00:00 104.2 kg HEIGHT 2020-08-13 05:57:00 177.8 cm WEIGHT 2020-08-13 05:57:00 102.74 kg HEIGHT 2020-08-12 11:16:00 177.8 cm WEIGHT 2020-08-12 11:16:00 103.42 kg HEIGHT 2020-09-03 10:43:00 177.8 cm WEIGHT 2020-09-03 10:43:00 94.802 kg HEIGHT 2020-09-03 10:43:00 177.8 cm WEIGHT 2020-09-03 10:43:00 94.802 kg WEIGHT 2020-08-19 10:15:00 91.6 kg WEIGHT 2020-08-19 07:12:00 94.6 kg WEIGHT 2020-08-16 18:00:00 93.2 kg WEIGHT 2020-08-15 03:45:00 96.163 kg WEIGHT 2020-08-14 04:00:00 104.2 kg HEIGHT 2020-08-13 05:57:00 177.8 cm WEIGHT 2020-08-13 05:57:00 102.74 kg HEIGHT 2020-08-12 11:16:00 177.8 cm WEIGHT 2020-08-12 11:16:00 103.42 kg HEIGHT 2020-08-08 10:58:00 177.8 cm WEIGHT 2020-08-08 10:58:00 103.556 kg HEIGHT 2020-08-08 10:58:00 177.8 cm WEIGHT 2020-08-08 10:58:00 103.556 kg Systolic blood 2021-03-07 15:14:00 122 mm[Hg] [facility] pressure Diastolic blood 2021-03-07 15:14:00 84 mm[Hg] [facility] pressure Heart rate 2021-03-07 15:14:00 68 /min [facility] Body height 2021-03-07 15:14:00 177.8 cm [facility] Body weight 2021-03-07 15:14:00 86.183 kg . [facility] BMI 2021-03-07 15:14:00 27.26 kg/m2 [facility] Oxygen saturation in 2021-03-07 15:14:00 95 /min [facility] Arterial blood by Pulse oximetry Respiratory rate 2021-02-21 13:37:05 17 /min [facility] Body temperature 2021-02-21 08:10:28 36 Katya [facility] Systolic blood 2020-09-03 11:20:00 159 mm[Hg] [facility] Diastolic blood 2020-09-03 11:20:00 77 mm[Hg] [facility] Heart rate 2020-09-03 11:20:00 70 /min [facility] Body temperature 2020-09-03 10:43:00 36.39 Katya [facility] Respiratory rate 2020-09-03 10:43:00 18 /min [facility] Body height 2020-09-03 10:43:00 177.8 cm [facility] Body weight 2020-09-03 10:43:00 94.802 kg [facility] BMI 2020-09-03 10:43:00 29.99 kg/m2 [facility] Oxygen saturation in 2020-09-03 10:43:00 96 /min room air [facility] - Arterial blood by Medical Ce nter Pulse oximetry Systolic (mm Hg) 2017-06-01 20:15:00 Dayron arabella Shaw Diastolic (mm Hg) 2017-06-01 20:15:00 Mem orial Surveyor Respitory Rate 2017-06-01 20:15:00 Memori al Colin Systolic (mm Hg) 2017-06-01 20:00:00 Dayron rial Surveyor Diastolic (mm Hg) 2017-06-01 20:00:00 Mem orial Surveyor Respitory Rate 2017-06-01 20:00:00 Memori al Colin Systolic (mm Hg) 2017-06-01 19:45:00 Dayron rial Colin Diastolic (mm Hg) 2017-06-01 19:45:00 Mem orial Colin Respitory Rate 2017-06-01 19:45:00 Memori al Surveyor Temperature Oral (F) 2017-06-01 16:00:00 98.5 F Memorial Surveyor BMI Calculated 2017-05-31 20:47:00 Memori al Surveyor Height 2017-05-31 20:47:00 177.8 cm [facility] Surveyor Weight 2017-05-31 20:47:00 [facility] Colin Systolic (mm Hg) 2017-03-04 22:53:00 Dayron rial Surveyor Diastolic (mm Hg) 2017-03-04 22:53:00 Mem orial Colin Temperature Oral (F) 2017-03-04 22:53:00 97.9 F Memorial Surveyor Respitory Rate 2017-03-04 22:53:00 Memori al Surveyor Heart Rate 2017-03-04 22:53:00 Memorial Surveyor Respitory Rate 2017-03-04 20:46:00 Memori al Surveyor Heart Rate 2017-03-04 20:46:00 Memorial Surveyor Systolic (mm Hg) 2017-03-04 20:46:00 Dayron rial Surveyor Diastolic (mm Hg) 2017-03-04 20:46:00 Mem orial Surveyor BMI Calculated 2017-03-04 19:30:00 Memori al Surveyor Height 2017-03-04 19:30:00 170.18 cm [facility] Colin Weight 2017-03-04 19:30:00 Memorial Surveyor Respitory Rate 2017-03-04 19:30:00 Memori al Colin Heart Rate 2017-03-04 19:30:00 [facility] Colin Temperature Oral (F) 2017-03-04 19:30:00 99 F [facility] Colin Systolic (mm Hg) 2017-03-04 19:30:00 Dayron rial Surveyor Diastolic (mm Hg) 2017-03-04 19:30:00 Mem orial Colin Respitory Rate 2017-02-26 17:00:00 Memori al Surveyor Systolic (mm Hg) 2017-02-26 17:00:00 Dayron rial Colin Diastolic (mm Hg) 2017-02-26 17:00:00 Mem orial Surveyor Respitory Rate 2017-02-26 16:45:00 Memori al Colin Systolic (mm Hg) 2017-02-26 16:45:00 Dayron rial Surveyor Diastolic (mm Hg) 2017-02-26 16:45:00 Mem orial Colin Respitory Rate 2017-02-26 16:30:00 Memori al Surveyor Systolic (mm Hg) 2017-02-26 16:30:00 Dayron rial Surveyor Diastolic (mm Hg) 2017-02-26 16:30:00 Mem orial Colin Temperature Oral (F) 2017-02-26 11:45:00 97.9 F Memorial Surveyor Heart Rate 2017-02-24 13:43:00 Memorial Surveyor Temperature Oral (F) 2017-02-24 13:43:00 99.2 F Memorial Surveyor Weight 2017-02-24 13:27:00 Memorial Surveyor BMI Calculated 2017-02-24 13:27:00 [facility] al Surveyor Height 2017-02-24 13:27:[address] [facility] Procedure Date / Time Performing Source Performed Clinician [id number] 2021-03-26 [facility] 00:00:[address] [facility] ECG 12-LEAD 2021-03-07 Brenda Chavira 15:13:49 Hospital BASIC METABOLIC PANEL 2021-02-21 Rakel Baires 10:26:00 [facility] MAGNESIUM LEVEL 2021-02-21 Rakel Baires 10:26:00 [facility] PHOSPHORUS LEVEL 2021-02-21 Rakel Baires 10:26:00 [facility] ALBUMIN LEVEL 2021-02-21 Rakel Baires 10:26:00 [facility] CBC WITH PLATELET AND DIFFERENTIAL 2021-02-21 Anusha Baires 10:26:00 [facility] ESTIMATED GFR 2021-02-21 Rakel Baires 10:26:00 [facility] HEMODIALYSIS 2021-02-20 Rakel Baires [facility] 05:06:53 [facility] TTE COMPLETE, W CONTRAST, W 2021-02-19 Orestes Becker odist DOPPLER ([id number]) 18:39:48 Hospital US THORACENTESIS WITH IMAGING 2021-02-19 Yasir Moore Nh thodist 16:01:23 [facility] XR CHEST 1 VW PORTABLE 2021-02-19 Ibrahima Israel 14:13:00 [facility] COMPREHENSIVE METABOLIC PANEL 2021-02-19 Orestes Beckerodist 09:22:00 Hospital HC COMPLETE BLD COUNT W/AUTO DIFF 2021-02-19 Orestes conteh [facility] 09:22:00 Hospital MAGNESIUM LEVEL 2021-02-19 matthewd, Orestes [facility] 09:22:00 Hospital PHOSPHORUS LEVEL 2021-02-19 [facility], Orestes Church 09:22:00 Hospital ESTIMATED GFR 2021-02-19 Orestes Becker [facility] 09:22:00 Hospital SMEAR REVIEW 2021-02-19 matthewOrestes [facility] 09:22:00 Hospital HEMODIALYSIS 2021-02-18 Rakel Baires [facility] 11:58:37 [facility] HC COMPLETE BLD COUNT W/AUTO DIFF 2021-02-18 Wade Pal [facility] 09:34:00 [facility] BASIC METABOLIC PANEL 2021-02-18 Brendan North [facility] 09:34:00 [facility] Er ESTIMATED GFR 2021-02-18 Brendan North [facility] 09:34:00 [facility] Er CT CHEST WO CONTRAST 2021-02-18 Brendan North [facility] 03:48:32 [facility] XR CHEST 1 VW 2021-02-17 Gigi Sood [facility] 21:57:34 [facility] US THORACENTESIS WITH IMAGING 2021-02-17 MilliealisaYasir espinal Nh thodist 21:45:00 [facility] TTE COMPLETE, WO CONTRAST, W 2021-02-17 Rakel Baires hodist DOPPLER ([id number]) 18:36:00 [facility] BASIC METABOLIC PANEL 2021-02-17 Jena Mcneil [facility] 09:18:00 Hospital HC COMPLETE BLD COUNT W/AUTO DIFF 2021-02-17 Wade Pal [facility] 09:18:00 Hospital ESTIMATED GFR 2021-02-17 Jena Mcneil 09:18:00 Hospital SMEAR REVIEW 2021-02-17 Jena Mcneil 09:18:00 Hospital HEMODIALYSIS 2021-02-16 Jena Mcneil 13:48:09 [facility] BASIC METABOLIC PANEL 2021-02-16 Jena Mcneil 09:08:00 Hospital CBC WITH PLATELET AND DIFFERENTIAL 2021-02-16 Brendan Northist 09:08:00 [facility] ESTIMATED GFR 2021-02-16 Jena Mcneil 09:08:00 Hospital SMEAR REVIEW 2021-02-16 Brendan Northist 09:08:00 [facility] XR CHEST 1 VW PORTABLE 2021-02-16 Yasir Moore [facility] 06:51:26 [facility] ULTRAFILTRATION 2021-02-15 Jena Mcneil 19:07:31 [facility] ESOPHAGOGASTRODUODENOSCOPY (EGD) 2021-02-15 Naty Pal [facility] 14:30:00 [facility] COLONOSCOPY 2021-02-15 Fabiana Palist 14:30:00 [facility] SURGICAL PATHOLOGY REQUEST 2021-02-15 Brendan North [facility] 14:08:00 [facility] HEMOGLOBIN & HEMATOCRIT 2021-02-15 Brendan North t 10:37:00 [facility] COMPREHENSIVE METABOLIC PANEL 2021-02-15 Brendan North Me thodist 10:37:00 [facility] Er MAGNESIUM LEVEL 2021-02-15 Brendan North [facility] 10:37:00 [facility] PHOSPHORUS LEVEL 2021-02-15 Brendan Northist 10:37:00 [facility] Er ESTIMATED GFR 2021-02-15 Brendan Northist 10:37:00 [facility] HEMOGLOBIN & HEMATOCRIT 2021-02-15 Brendan North Methodis t 02:58:00 [facility] HEMOGLOBIN & HEMATOCRIT 2021-02-14 Brendan North Methodis t 22:23:00 [facility] XR CHEST 1 VW PORTABLE 2021-02-14 Jena Mcneil 17:41:56 Hospital TRANSFUSE RED BLOOD CELLS 2021-02-14 Jena Mcneil Method ist 15:58:52 Hospital TRANSFUSE RED BLOOD CELLS 2021-02-14 Jena Mcneil Method ist 15:11:54 Hospital HEMODIALYSIS 2021-02-14 Jena Mcneil 12:47:51 Hospital COVID-19 QUALITATIVE RT-PCR 2021-02-14 Brendan North odtraci 10:27:00 [facility] HC COMPLETE BLD COUNT W/AUTO DIFF 2021-02-14 Isidro Thornton 09:15:00 Hospital COMPREHENSIVE METABOLIC PANEL 2021-02-14 Isidro Thornton 09:15:00 Hospital MAGNESIUM LEVEL 2021-02-14 Isidro Thornton 09:15:00 Hospital PHOSPHORUS LEVEL 2021-02-14 Isidro Thornton 09:15:00 [facility] B NATRIURETIC PEPTIDE 2021-02-14 Rakel Baires 09:15:00 [facility] TOTAL IRON BINDING CAPACITY 2021-02-14 Rakel Baires 09:15:00 [facility] FERRITIN LEVEL 2021-02-14 Rakel Baires 09:15:00 [facility] ESTIMATED GFR 2021-02-14 Isidro Thornton 09:15:00 Hospital TYPE AND SCREEN 2021-02-14 Jena Mcneil 01:40:00 Hospital PREPARE RBC 2021-02-14 Jena Mcneil 01:40:00 Hospital HEMOGLOBIN & HEMATOCRIT 2021-02-13 Brendan Northis t 23:48:00 [facility] HEPATITIS B SURFACE ANTIGEN 2021-02-13 Rakel Baires odtraci 17:52:00 [facility] HEPATITIS B SURFACE ANTIBODY 2021-02-13 Rakel Baires 17:52:00 [facility] US THORACENTESIS WITH IMAGING 2021-02-13 Isidro Thornton thodist 15:07:03 Hospital AFB STAIN 2021-02-13 Yasir Moore [facility] 14:30:00 [facility] FUNGUS CULTURE 2021-02-13 Yasir Moore 14:30:00 [facility] FUNGUS SMEAR 2021-02-13 Yasir Moore 14:30:00 [facility] AFB CULTURE 2021-02-13 Yasir Moore 14:30:00 [facility] GRAM STAIN ONLY 2021-02-13 Yasir Moore 14:30:00 [facility] BLOOD CULTURE, AEROBIC & ANAEROBIC 2021-02-13 Brendan North 14:30:00 [facility] L[facility] 2021-02-13 Isirdo Thornton ist 14:30:00 Hospital LDH, MISC FLUID 2021-02-13 Isidro Thornton 14:30:00 Hospital PH, MISC FLUID 2021-02-13 Isidro Thornton 14:30:00 Hospital PROTEIN, [facility] FLUID 2021-02-13 Yasir Moore 14:30:00 [facility] CELL COUNT AND DIFFERENTIAL, BODY 2021-02-13 Malena Moore i FLUID 14:30:00 [facility] CYTOLOGY (NON-GYNECOLOGICAL) 2021-02-13 Brendan North Met hodist REQUEST 14:30:00 [facility] XR CHEST 1 VW PORTABLE 2021-02-[address] 14:27:12 [facility] URINE CULTURE 2021-02-13 Isidro Thornton 11:42:00 [facility] URINALYSIS SCREEN AND MICROSCOPY, 2021-02-13 Isidro Thornton WITH REFLEX TO CULTURE 11:42:00 Hospital HEMODIALYSIS 2021-02-13 Rakel Baires 11:25:08 [facility] TROPONIN 2021-02-13 Isidro Thornton 08:41:00 Hospital HC COMPLETE BLD COUNT W/AUTO DIFF 2021-02-13 Isidro Thornton 08:41:00 Hospital PROTHROMBIN TIME WITH INR 2021-02-13 Isirdo Thorntont 08:41:00 Hospital COMPREHENSIVE METABOLIC PANEL 2021-02-13 Isidro Thorntonodist 08:41:00 Hospital MAGNESIUM LEVEL 2021-02-13 Isidro Thornton 08:41:00 Hospital PHOSPHORUS LEVEL 2021-02-13 Isidro Thornton 08:41:00 Hospital ESTIMATED GFR 2021-02-13 Isidro Thornton 08:41:00 Hospital ECG ED PRELIMINARY INTERPRETATION 2021-02-13 Elisabeth Augustine 06:56:16 [facility] TROPONIN 2021-02-13 Isidro Thornton 04:41:[address] CHEST WO CONTRAST 2021-02-13 Rakel Baires 03:18:22 [facility] XR CHEST 1 VW PORTABLE 2021-02-13 Veronica Augustine t 01:07:40 [facility] HC COMPLETE BLD COUNT W/AUTO DIFF 2021-02-13 Elisabeth Augustine 01:07:00 [facility] COMPREHENSIVE METABOLIC PANEL 2021-02-13 Veronica Augustine ethodist 01:07:00 [facility] AMYLASE LEVEL 2021-02-13 Veronica Augustine 01:07:00 [facility] LIPASE LEVEL 2021-02-13 Veronica Augustine 01:07:00 [facility] TROPONIN 2021-02-13 Isidro Thornton 01:07:00 Hospital ESTIMATED GFR 2021-02-13 Veronica Augustine 01:07:00 [facility] ECG 12-LEAD 2021-02-13 Isidro Thornton 00:57:02 Hospital XR CHEST 1 VIEW PORTABLE / BEDSIDE 2020-08-[address] [facility] - 13:11:00 [facility] HEMODIALYSIS INPATIENT 2020-08-[address] [facility] - 07:26:45 [facility] BASIC METABOLIC PANEL (7) 2020-08-[address] [facility] - 04:04:00 [facility] CBC (HEMOGRAM ONLY) 2020-08-[address] [facility] - 04:04:00 [facility] MAGNESIUM 2020-08-[address] [facility] - 04:04:00 [facility] PHOSPHORUS 2020-08-[address] [facility] - 04:04:00 [facility] BASIC METABOLIC PANEL (7) 2020-08-[address] [facility] - 04:54:00 [facility] CBC (HEMOGRAM ONLY) 2020-08-[address] [facility] - 04:54:00 [facility] MAGNESIUM 2020-08-[address] [facility] - 04:54:00 [facility] PHOSPHORUS 2020-08-[address] [facility] - 04:54:00 [facility] XR CHEST 1 VIEW PORTABLE / BEDSIDE 2020-08-[address] [facility] - 03:30:[address] [facility] PREPARE LEUKO-REDUCED RBC 2020-08-17 [facility], Bradantionette [facility] - 23:54:00 [facility] PREPARE LEUKO-REDUCED PLATELETS 2020-08-17 Mark, Ahantionette [facility] - 23:54:00 [facility] POCT-GLUCOSE METER 2020-08-[address] [facility] - 15:46:[address] [facility] POCT-GLUCOSE METER 2020-08-[address] [facility] - 12:21:[address] [facility] XR CHEST 1 VIEW PORTABLE / BEDSIDE 2020-08-[address] [facility] - 09:33:[address] [facility] POCT-GLUCOSE METER 2020-08-[address] [facility] - 08:23:[address] [facility] SARS-COV2/RT-PCR ([facility]) 2020-08-[address] [facility] - 05:25:00 [facility] BASIC METABOLIC PANEL (7) 2020-08-[address] [facility] - 05:19:00 [facility] CBC (HEMOGRAM ONLY) 2020-08-[address] [facility] - 05:19:00 [facility] MAGNESIUM 2020-08-[address] [facility] - 05:19:00 [facility] PHOSPHORUS 2020-08-[address] [facility] - 05:19:00 [facility] TRANSFUSE LEUKO-REDUCED PLATELETS 2020-08-[address] [facility] - 22:50:00 [facility] POCT-GLUCOSE METER 2020-08-[address] [facility] - 20:39:[address] [facility] HEMODIALYSIS INPATIENT 2020-08-[address] [facility] - 18:27:53 [facility] POCT-GLUCOSE METER 2020-08-[address] [facility] - 16:56:[address] [facility] TRANSFUSE LEUKO-REDUCED RED BLOOD 2020-08-[address] [facility] - CELLS 16:10:00 [facility] POCT-GLUCOSE METER 2020-08-[address] [facility] - 12:22:[address] [facility] POCT-GLUCOSE METER 2020-08-[address] [facility] - 07:21:[address] [facility] BASIC METABOLIC PANEL (7) 2020-08-[address] [facility] - 04:06:00 [facility] CBC (HEMOGRAM ONLY) 2020-08-[address] [facility] - 04:06:00 [facility] MAGNESIUM 2020-08-[address] [facility] - 04:06:00 [facility] PHOSPHORUS 2020-08-[address] [facility] - 04:06:00 [facility] CALCIUM, IONIZED 2020-08-[address] [facility] - 04:06:00 [facility] XR CHEST 1 VIEW PORTABLE / BEDSIDE 2020-08-[address] [facility] - 03:21:00 [facility] POCT-GLUCOSE METER 2020-08-[address] [facility] - 20:41:[address] [facility] POCT-GLUCOSE METER 2020-08-[address] [facility] - 15:00:[address] [facility] XR CHEST 1 VIEW PORTABLE / BEDSIDE 2020-08-[address] [facility] - 14:35:00 [facility] US THORACENTESIS 2020-08-[address] [facility] - 13:25:[address] [facility] [facility] POCT-GLUCOSE METER 2020-08-[address] [facility] - 12:15:[address] [facility] PT/APTT 2020-08-[address] [facility] - 09:33:00 [facility] POCT-GLUCOSE METER 2020-08-[address] [facility] - 07:28:[address] [facility] XR CHEST 1 VIEW PORTABLE / BEDSIDE 2020-08-15 Charli Alexandra [facility] - 03:53:00 [facility] ANTI-NUCLEAR ANTIBODY (MISSAEL) 2020-08-15 [facility] - 03:47:00 [facility] BASIC METABOLIC PANEL (7) 2020-08-15 Charli Alexandra [facility] - 03:47:00 [facility] CBC (HEMOGRAM ONLY) 2020-08-15 Charli Alexandra [facility] - 03:47:00 [facility] MAGNESIUM 2020-08-15 Charli Alexandra [facility] - 03:47:00 [facility] PHOSPHORUS 2020-08-15 Charli Alexandra [facility] - 03:47:00 [facility] CALCIUM, IONIZED 2020-08-15 Charli Alexandra [facility] - 03:47:00 [facility] MISSAEL TITER AND PATTERN 2020-08-15 Charli Alexandra [facility] - 03:47:00 [facility] PREPARE RBC 2020-08-14 Stewart Arenas [facility] - :54:[address] [facility] PREPARE PLATELETS 2020-08-14 Stewart Arenas [facility] - :54:[address] [facility] PREPARE PLASMA 2020-08-14 DeepaStewart paul [facility] - :54:[address] [facility] OXYGEN SATURATION, MEASURED 2020-08-14 Charli Alexandra [facility] - 10:38:00 [facility] US ABDOMEN LIMITED 2020-08-[address] [facility] - 10:23:00 [facility] POCT-GLUCOSE METER 2020-08-[address] [facility] - 06:05:[address] [facility] BASIC METABOLIC PANEL (7) 2020-08-14 Charli Alexandra [facility] - 03:52:00 [facility] CBC (HEMOGRAM ONLY) 2020-08-14 Cahrli Alexandra [facility] - 03:52:00 [facility] MAGNESIUM 2020-08-14 Char[facility] Alexandra [facility] - 03:52:00 [facility] PHOSPHORUS 2020-08-[address] [facility] - 03:52:00 [facility] LIPID PANEL 2020-08-[address] [facility] - 03:52:00 [facility] HEMOGLOBIN A1C 2020-08-[address] [facility] - 03:52:00 [facility] HC LAB HIV-1 AG W/HIV-1&2 AB 2020-08-[address] [facility] - 03:52:00 [facility] HEPATITIS C ANTIBODY 2020-08-14 Ali, [facility]ravin [facility] - 03:52:00 [facility] HEPATITIS B PANEL 2020-08-14 Ali, Pravin [facility] - 03:52:00 [facility] CALCIUM, IONIZED 2020-08-[address] [facility] - 03:52:00 [facility] BLOOD GAS, ARTERIAL 2020-08-[address] [facility] - 03:52:00 [facility] XR CHEST 1 VIEW PORTABLE / BEDSIDE 2020-08-[address] [facility] - 01:23:00 [facility] POCT-GLUCOSE METER 2020-08-[address] [facility] - 00:31:[address] [facility] RRL CRITICAL LABS 2020-08-[address] [facility] - (ABG,NA,K,H&H,GLUCOSE) 19:34:00 [facility] enter LACTIC ACID, ARTERIAL 2020-08-13 SeraEstee huang [facility] - 19:34:00 [facility] BLOOD GAS, ARTERIAL 2020-08-13 Sera, Estee [facility] - 19:34:00 [facility] SODIUM NA-STAT LAB 2020-08-13 [facility] - 19:34:00 [facility] POTASSIUM-STAT LAB 2020-08-13 Sera, Acdcgerardo [facility] - 19:34:00 [facility] GLUCOSE-STAT LAB 2020-08-13 Sera, Tandce [facility] - 19:34:00 [facility] HGB/HCT (H&H) - STAT LAB 2020-08-13 Sera, Acdce [facility] - 19:34:00 [facility] RRL CRITICAL LABS 2020-08-[address] [facility] - (ABG,NA,K,H&H,GLUCOSE) 16:17:00 [facility] enter BLOOD GAS, ARTERIAL 2020-08-[address] [facility] - 16:17:[address] [facility] SODIUM NA-STAT LAB 2020-08-[facility] [facility] POTASSIUM-STAT LAB 2020-08-[facility] - 16:17:[address] [facility] GLUCOSE-STAT LAB 2020-08-[facility] - 16:17:[address] [facility] HGB/HCT (H&H) - STAT LAB 2020-08-[facility] - 16:17:[address] [facility] XR CHEST 1 VIEW PORTABLE / BEDSIDE 2020-08-[address] [facility] - 15:30:00 [facility] CALCIUM, IONIZED 2020-08-[address] [facility] - 14:31:00 [facility] PT/APTT 2020-08-[address] [facility] - 14:30:00 [facility] PROTHROMBIN TIME/INR 2020-08-[address] [facility] - 14:30:00 [facility] OXYGEN SATURATION, MEASURED 2020-08-[address] [facility] - 14:30:00 [facility] THROMBOELASTOGRAPH (TEG) 2020-08-[address] [facility] - 14:30:00 [facility] XR CHEST 1 VIEW PORTABLE / BEDSIDE 2020-08-[address] [facility] - 14:00:00 [facility] MAGNESIUM 2020-08-[address] [facility] - 13:44:00 [facility] RRL CRITICAL LABS 2020-08-[address] [facility] - (ABG,NA,K,H&H,GLUCOSE) 13:44:00 Medical enter LACTIC ACID, ARTERIAL 2020-08-[address] [facility] - 13:44:00 [facility] PHOSPHORUS 2020-08-[address] [facility] - 13:44:00 [facility] CBC (HEMOGRAM ONLY) 2020-08-[address] [facility] - 13:44:00 [facility] OXYGEN SATURATION, MEASURED 2020-08-[address] [facility] - 13:44:00 [facility] COMPREHENSIVE METABOLIC PANEL 2020-08-[address] [facility] - 13:44:00 [facility] BLOOD GAS, ARTERIAL 2020-08-[address] [facility] - 13:44:00 [facility] SODIUM NA-STAT LAB 2020-08-[address] [facility] - 13:44:00 [facility] POTASSIUM-STAT LAB 2020-08-[address] [facility] - 13:44:00 [facility] GLUCOSE-STAT LAB 2020-08-[address] [facility] - 13:44:00 [facility] HGB/HCT (H&H) - STAT LAB 2020-08-[address] [facility] - 13:44:00 [facility] LACTATE DEHYDROGENASE (LDH) 2020-08-13 [facility] - 12:30:38 [facility] BILIRUBIN, TOTAL AND DIRECT 2020-08-13 [facility] - 12:30:38 [facility] RRL CRITICAL LABS 2020-08-13 [facility] - (ABG,NA,K,H&H,GLUCOSE) 12:27:17 [facility] PROTHROMBIN TIME/INR 2020-08-13 [facility] - 12:27:17 [facility] APTT 2020-08-13 [facility] - 12:27:17 [facility] FIBRINOGEN 2020-08-13 [facility] - 12:27:17 [facility] THROMBOELASTOGRAPH (TEG) 2020-08-13 [facility] - 12:27:17 [facility] PLATELET COUNT 2020-08-13 [facility] - 12:27:17 [facility] HAPTOGLOBIN 2020-08-13 [facility] - 12:27:17 [facility] BLOOD GAS, ARTERIAL 2020-08-13 [facility] - 12:27:17 [facility] SODIUM NA-STAT LAB 2020-08-13 [facility], Kristy [facility] - 12:27:17 [facility] POTASSIUM-STAT LAB 2020-08-13 Bill, Kristy [facility] - 12:27:17 [facility] GLUCOSE-STAT LAB 2020-08-13 Bill, Kristy [facility] - 12:27:17 [facility] HGB/HCT (H&H) - STAT LAB 2020-08-13 Bill, Kristy [facility] - 12:27:17 [facility] RETICULOCYTE COUNT 2020-08-13 Bill, Kristy [facility] - 12:27:00 [facility] HEPATITIS B SURFACE ANTIGEN 2020-08-[address] [facility] - 12:27:00 [facility] TRANSFUSE LEUKO-REDUCED RED BLOOD 2020-08-13 [facility], Kristy [facility] - CELLS 12:08:00 [facility] TRANSFUSE LEUKO-REDUCED RED BLOOD 2020-08-13 [facility], Kristy [facility] - CELLS 12:04:00 [facility] RRL CRITICAL LABS 2020-08-13 [facility], Kristy [facility] - (ABG,NA,K,H&H,GLUCOSE) 11:41:41 Medical enter CALCIUM, IONIZED 2020-08-13 [facility], Kristy [facility] - 11:41:41 [facility] PROTHROMBIN TIME/INR 2020-08-13 [facility], [facility] - 11:41:41 [facility] APTT 2020-08-13 [facility], Kristy [facility] - 11:41:41 [facility] Center FIBRINOGEN 2020-08-13 [facility], Kristy [facility] - 11:41:41 [facility] Center PLATELET COUNT 2020-08-13 [facility], Kristy [facility] - 11:41:41 [facility] Center BLOOD GAS, ARTERIAL 2020-08-13 [facility], Kristy [facility] - 11:41:41 [facility] Center SODIUM NA-STAT LAB 2020-08-13 [facility], Kristy [facility] - 11:41:41 [facility] Center POTASSIUM-STAT LAB 2020-08-13 [facility], Kristy [facility] - 11:41:41 [facility] GLUCOSE-STAT LAB 2020-08-13 [facility], Kristy [facility] - 11:41:41 [facility] Center HGB/HCT (H&H) - STAT LAB 2020-08-13 [facility], Manu [facility] - 11:41:41 [facility] CBC W/PLT COUNT & AUTO 2020-08-13 Mark, Clement [facility] - DIFFERENTIAL 11:41:00 [facility] RETICULOCYTE COUNT 2020-08-13 Bill, Kristy [facility] - 11:41:00 [facility] CBC W/PLT COUNT & AUTO 2020-08-[address] [facility] - DIFFERENTIAL 11:41:00 [facility] TRANSFUSE LEUKO-REDUCED RED BLOOD 2020-08-13 Bill, Kristy [facility] - CELLS 11:26:00 [facility] TRANSFUSE LEUKO-REDUCED PLATELETS 2020-08-13 Bill, Kristy [facility] - 11:20:00 [facility] TRANSFUSE PLASMA 2020-08-13 Bill, Kristy [facility] - 11:19:00 [facility] TRANSFUSE LEUKO-REDUCED PLATELETS 2020-08-13 Bill, Kristy [facility] - 11:19:00 [facility] TRANSFUSE PLASMA 2020-08-13 Bill, Kristy [facility] - 11:18:00 [facility] TRANSFUSE LEUKO-REDUCED RED BLOOD 2020-08-13 Bill, Kristy [facility] - CELLS 11:05:00 [facility] POCT-ACT 2020-08-13 [facility], Stewart [facility] - 10:58:[address] [facility] TRANSFUSE LEUKO-REDUCED PLATELETS 2020-08-13 Bill, Kristy [facility] - 10:58:00 [facility] APTT 2020-08-13 Bill, Kristy [facility] - 10:51:02 [facility] FIBRINOGEN 2020-08-13 Bill, Kristy [facility] - 10:51:02 [facility] THROMBOELASTOGRAPH (TEG) 2020-08-13 Bill, Kristy [facility] - 10:51:02 [facility] Center PLATELET COUNT 2020-08-13 Bill, Kristy [facility] - 10:51:02 [facility] BLOOD GAS, ARTERIAL 2020-08-13 Bill, Kristy [facility] - 10:51:02 [facility] SODIUM NA-STAT LAB 2020-08-13 Bill, Kristy [facility] - 10:51:02 [facility] POTASSIUM-STAT LAB 2020-08-13 Bill, Kristy [facility] - 10:51:02 [facility] GLUCOSE-STAT LAB 2020-08-13 Bill, Kristy [facility] - 10:51:02 [facility] HGB/HCT (H&H) - STAT LAB 2020-08-13 Bill, Kristy [facility] - 10:51:02 [facility] RRL CRITICAL LABS 2020-08-13 Bill, Kristy [facility] - (ABG,NA,K,H&H,GLUCOSE) 10:51:02 Medical C enter PROTHROMBIN TIME/INR 2020-08-13 Bill, [facility] - 10:51:02 [facility] TRANSFUSE LEUKO-REDUCED RED BLOOD 2020-08-13 Bill, Kristy [facility] - CELLS 10:42:00 [facility] TRANSFUSE LEUKO-REDUCED PLATELETS 2020-08-13 [facility], [facility]y [facility] - 10:41:00 [facility] TRANSFUSE LEUKO-REDUCED PLATELETS 2020-08-13 [facility], [facility]y [facility] - 10:30:00 [facility] POCT-ACT 2020-08-13 [facility] Stewart [facility] - 10:28:[address] [facility] TRANSFUSE LEUKO-REDUCED PLATELETS 2020-08-13 [facility], Kristy [facility] - 10:28:00 [facility] TRANSFUSE LEUKO-REDUCED PLATELETS 2020-08-13 [facility], [facility]y [facility] - 10:27:00 [facility] RRL CRITICAL LABS 2020-08-13 [facility], Kristy [facility] - (ABG,NA,K,H&H,GLUCOSE) 10:15:25 Medical C enter CALCIUM, IONIZED 2020-08-13 Bill, Krsity [facility] - 10:15:25 [facility] Center PROTHROMBIN TIME/INR 2020-08-13 [facility], [facility] - 10:15:25 [facility] APTT 2020-08-13 [facility], Kristy [facility] - 10:15:25 [facility] Center FIBRINOGEN 2020-08-13 Bill, Kristy [facility] - 10:15:25 [facility] Center PLATELET COUNT 2020-08-13 [facility], Kristy [facility] - 10:15:25 [facility] Center BLOOD GAS, ARTERIAL 2020-08-13 Bill, Kristy [facility] - 10:15:25 [facility] Center SODIUM NA-STAT LAB 2020-08-13 [facility], [facility]y [facility] - 10:15:25 [facility] Center POTASSIUM-STAT LAB 2020-08-13 [facility], Kristy [facility] - 10:15:25 [facility] GLUCOSE-STAT LAB 2020-08-13 [facility], [facility]y [facility] - 10:15:25 [facility] HGB/HCT (H&H) - STAT LAB 2020-08-13 [facility], [facility]y [facility] - 10:15:25 [facility] PERIPHERAL BLOOD SMEAR - HOLD ONLY 2020-08-[address] [facility] - 10:15:00 [facility] POCT-ACT 2020-08-[facility] - 09:[facility]:[address] [facility] RRL CRITICAL LABS 2020-08-13 [facility] - (ABG,NA,K,H&H,GLUCOSE) 09:46:29 [facility] enter BLOOD GAS, ARTERIAL 2020-08-13 [facility] - 09:46:[address] [facility] SODIUM NA-STAT LAB 2020-08-13 [facility] - 09:46:[address] [facility] POTASSIUM-STAT LAB 2020-08-13 [facility] - 09:46:[address] [facility] GLUCOSE-STAT LAB 2020-08-13 [facility] - 09:46:[address] [facility] HGB/HCT (H&H) - STAT LAB 2020-08-13 [facility] - 09:46:[address] [facility] TRANSFUSE LEUKO-REDUCED RED BLOOD 2020-08-13 [facility] - CELLS 09:34:00 [facility] POCT-ACT 2020-08-[facility] - 09:26:[address] [facility] RRL CRITICAL LABS 2020-08-13 [facility] - (ABG,NA,K,H&H,GLUCOSE) 09:20:37 [facility] enter BLOOD GAS, ARTERIAL 2020-08-13 [facility] - 09:20:[address] [facility] SODIUM NA-STAT LAB 2020-08-13 [facility], Stewart [facility] - 09:20:[address] [facility] POTASSIUM-STAT LAB 2020-08-13 [facility] - 09:20:[address] [facility] GLUCOSE-STAT LAB 2020-08-[address] [facility] - 09:20:[address] [facility] HGB/HCT (H&H) - STAT LAB 2020-08-[address] [facility] - 09:20:[address] [facility] POCT-ACT 2020-08-[address] [facility] - 08:59:[address] [facility] ANESTHESIA DASIA 2020-08-13 [facility], Kristy [facility] - 08:21:33 [facility] ABORH, MANUAL 2020-08-[address] [facility] - 08:14:00 [facility] POCT-ACT 2020-08-[address] [facility] - 08:11:[address] [facility] RRL CRITICAL LABS 2020-08-13 [facility], Kristy [facility] - (ABG,NA,K,H&H,GLUCOSE) 07:51:14 [facility] enter CALCIUM, IONIZED 2020-08-13 [facility], [facility]y [facility] - 07:51:14 [facility] BLOOD GAS, ARTERIAL 2020-08-13 [facility] - 07:51:14 [facility] SODIUM NA-STAT LAB 2020-08-13 [facility] - 07:51:14 [facility] POTASSIUM-STAT LAB 2020-08-13 [facility] Kristy [facility] - 07:51:14 [facility] GLUCOSE-STAT LAB 2020-08-13 [facility] - 07:51:14 [facility] HGB/HCT (H&H) - STAT LAB 2020-08-13 [facility] - 07:51:14 [facility] BYPASS,AORTO CORONARY HENRY/SVG 2020-08-[address] [facility] - 07:07:[address] [facility] ENDOSCOPIC HARVEST,VEIN 2020-08-[address] [facility] - 07:07:[address] [facility] DASIA,3D 2020-08-[address] [facility] - 07:07:[address] [facility] XR CHEST 1 VIEW PORTABLE / BEDSIDE 2020-08-[address] [facility] - 06:41:[address] [facility] ABORH, MANUAL 2020-08-[address] [facility] - 06:28:[address] [facility] CBC W/PLT COUNT & AUTO 2020-08-13 [facility] DIFFERENTIAL 06:28:[address] [facility] MAGNESIUM 2020-08-[address] [facility] - 06:28:[address] [facility] COMPREHENSIVE METABOLIC PANEL 2020-08-[address] [facility] - 06:28:[address] [facility] HEMOGLOBIN A1C 2020-08-[address] [facility] - 06:28:[address] [facility] LIPID PANEL 2020-08-[address] [facility] - 06:28:[address] [facility] CBC W/PLT COUNT & AUTO 2020-08-13 [facility]as [facility] - DIFFERENTIAL 06:28:[address] [facility] PROTHROMBIN TIME/INR 2020-08-13 [facility]Stewart paul [facility]:[address] [facility] APTT 2020-08-[address] [facility] - 06:28:[address] [facility] PHOSPHORUS 2020-08-[address] [facility] - 06:28:00 [facility] BILIRUBIN, TOTAL AND DIRECT 2020-08-13 [facility] - 06:28:00 [facility] LACTATE DEHYDROGENASE (LDH) 2020-08-[address] [facility] - 06:28:00 [facility] POCT-GLUCOSE METER 2020-08-[address] [facility] - 06:01:[address] [facility] SARS-COV2/RT-PCR ([facility]) 2020-08-[address] [facility] - 11:42:[address] [facility] Central line insertion<sup>1</sup> 2016-08-23 [facility] 00:00:00 AV - Creation of arteriovenous 2015-08-23 [facility] fistula 00:00:00 Procedure<sup>2, 3</sup> Lukasz Shaw Plan of Care Planned Activity Planned Date Details Comments Source Future Scheduled 2023-08-[address] [facility] Test 00:00:00 (procedure) [code = Medical Center 70813337] Future Scheduled 2021-04-23 INFLUENZA VACCINE (#1) [facility]:00 [code = INFLUENZA Medical Ce nter VACCINE (#1)] Future Scheduled 2020 PNEUMOCOCCAL 65+ YRS [facility] - Test 00:00:00 (1 of 1 - Medical Center [id number] [id number]) [code = PNEUMOCOCCAL 65+ YRS (1 of 1 - [id number] PCV13)] Future Scheduled 2020-05-23 Medicare IPPE (WELCOME [facility] Test 00:00:00 TO MEDICARE) [code = Medical Center Medicare IPPE (WELCOME TO MEDICARE)] Future Scheduled 2005 SHINGLES VACCINES ([address] [facility] - Test 00:00:00 of 2) [code = SHINGLES Medic al Center VACCINES (1 of 2)] Future Scheduled 1974 DTAP/TDAP/TD VACCINES [facility] Test 00:00:00 (1 - Tdap) [code = Medical C enter DTAP/TDAP/TD VACCINES (1 - Tdap)] Future Scheduled 1967 COVID-19 VACCINE (1) [facility] - Test 00:00:00 [code = COVID-[address] VACCINE (1)] Future Scheduled [address] [facility] - Test 00:00:00 malignant neoplasm of Medica l Center colon (procedure) [code = 771223488] Future Scheduled 65+ [facility]CCAL [facility] VACCINE (1 of 4 - PCV13) [code = 65+ PNEUMOCOCCAL VACCINE (1 of 4 - PCV13)] Future Scheduled DIABETES: RETINAL EYE [facility] EXAM [code = DIABETES: RETINAL EYE EXAM] Future Scheduled DIABETIC FOOT EXAM [facility] [code = DIABETIC FOOT EXAM] Future Scheduled COVID-19 [facility]ACCINE (1) [facility] [code = COVID-19 VACCINE (1)] Future Scheduled Hepatitis C screening [facility] Test (procedure) [code = 489005223] Future Scheduled COLONOSCOPY [facility]CRE[facility]ING [facility] [code = COLONOSCOPY SCREENING] Future Scheduled [facility]LES [facility]INES (#[facility]) [facility] [code = SHINGLES VACCINES (#1)] Future Scheduled [facility] malignant neoplasm of lung (procedure) [code = 006425168] Future Scheduled [facility] [code = INFLU[facility] VACCINE] Encounters Start End Encounter Admission Attending Care Care Encounter Source Date/Time Date/Time Type Type Clinicians Facility Department ID 2021 Inpatient MIREILLE ARENAS Surgery [id number] [facility] 20:13:23 [facility] 2021-05-05 Inpatient DANIELE GravesCL OUTD [id number] [facility] 10:00:00 José [id number] [facility] 2021-03-24 Inpatient DANIELE GravesCL OUTD [id number] [facility] 10:30:00 José [id number] [facility] 2021-05-14 2021-05-14 Outpatient OSCAR [facility] [id number] [place] 00:00:00 00:00:00 YASIR 857 [facility] 2021-05-14 2021-05-14 Outpatient ENOCH [facility] [id number] [place] 00:00:00 00:00:00 NOEL 480 [facility] 2021-05-13 2021-05-13 Outpatient VIKTORIA [facility] [id number] [place] 00:00:00 00:00:00 RUPALI 268 [facility] 2021-05-13 2021-05-13 Outpatient OSCAR [facility] [id number] [place] 00:00:00 00:00:00 YASIR 680 [facility] 2021-05-13 2021-05-13 Outpatient VIKTORIA [facility] [id number] [place] 00:00:00 00:00:00 RUPALI 978 Method i 2021-05-12 2021-05-12 Outpatient OSCAR [facility] [id number] [place] 00:00:00 00:00:00 YASIR 799 Method i 2021-05-07 2021-05-07 Outpatient DANIELE GravesCL OUTD [id number] [facility] 05:27:00 05:27:00 José [id number] [facility] 2021-05-07 2021-05-07 Outpatient DANIELE GravesCL OUTD [id number] [facility] 05:27:00 05:27:00 José 67 [facility] 2021-04-21 2021-04-21 Travel 1.2.840.1 1.2.563.023 [id number] [facility] 00:00:00 00:00:[address] 3.430.2.7 0.2.7.3.698 Ho spita .3.644506 084.8 l .8 2021-04-18 2021-04-18 Travel 1.2.840.1 1.2.562.568 [id number] [facility] 00:00:00 00:00:[address] 3.430.2.7 0.2.7.3.698 Ho spita .3.886701 084.8 l .8 2021-04-16 2021-04-16 Transcribe Oscar, 1.2.840.1 [id number] [facility] 00:00:00 00:00:00 Orders Yasir Mera 37468.1.1 738 s t Salim 3.430.2.7 Hospit a .3.330993 l .8 2021-03-26 2021-03-26 Inpatient EULALIO Zimmerman, HCACL INTE.02 [id number] [facility] 09:24:00 17:38:00 José 61 [facility] 2021-03-26 2021-03-26 Inpatient EULALIO Zimmerman, HCACL INTE.02 [id number] [facility] 09:24:00 17:38:00 José [id number] [facility] 2021-03-07 2021-03-07 Office Shan, 1.2.840.1 [id number] [facility]i 09:45:57 10:44:36 Visit Brenda 27773.1.[address] 3.430.2.7 Hospit a .3.444130 l .8 2021-03-07 2021-03-07 Travel 1.2.840.1 1.2.567.294 [id number] [facility] 00:00:00 00:00:[address] 3.430.2.7 0.2.7.3.698 Ho spita .3.064215 084.8 l .8 2021-02-21 2021-02-21 Orders [facility], 1.2.840.1 [id number] Methodi 00:00:00 00:00:00 Only Manjoe 55426.1.[address] 3.430.2.7 Hospit a .3.399635 l .8 2021-02-12 2021-02-21 [facility], 1.2.840.1 [id number] [place] 00:00:00 00:00:00 Encounter BENITO 45238.1.1 [address] .3.379854 .8 2021-02-15 2021-02-15 Anesthesia [place], 1.2.840.1 [id number] [facility]i 09:37:00 10:14:00 Event Sergio 36291.1.[address] 3.430.2.7 Hospit a .3.578415 l .8 2021-02-15 2021-02-15 Surgery Rio, 1.2.840.1 [id number] Methodi 09:30:00 10:00:[address] 3.430.2.7 Hospit a .3.063287 l .8 2021-02-12 2021-02-12 Travel 1.2.840.1 1.2.487.314 [id number] [facility]i 00:00:00 00:00:[address] 3.430.2.7 0.2.7.3.698 Ho spita .3.820345 084.8 l .8 2021-01-18 2021-01-18 Refill Deysi, 1.2.840.6 [id number] [facility]i 00:00:00 00:00:[address] Andreia 3.430.2.7 Hospit a .3.477654 l .8 2020-09-23 2020-09-23 Denys Jones [facility] [id number] [facility] 00:00[facility]00 00:00:00 [facility] 2020-09-22 2020-09-22 Telephone Robert [facility] [id number] [facility] 00:00:00 00:00:00 [facility] 2020-09-03 2020-09-03 Office Deepa [facility] [id number] 10:40:38 10:55:38 Visit [facility] 2020-09-03 2020-09-03 Outpatient DEEPA [facility] SLE [id number] [facility] 00:00:00 00:00:00 [facility] 2020-09-03 2020-09-03 Travel [facility] [id number] [facility] 00:[facility] 00:[facility]:00 [facility] 2020-08-13 2020-08-20 [facility] [id number] 05:53:00 11:24:00 Encounter [facility] 2020-08-13 2020-08-13 Anesthesia BillKristy [facility] [id number] [facility] 07:09:00 13:18:00 Event Hoang Reis [facility] 2020-08-13 2020-08-13 Surgery Deepa [facility] [id number] 07:30:00 10:45:00 [facility] 2020-08-12 2020-08-12 [facility] [id number] 11:10:00 23:59:00 Encounter [facility] 2020-08-12 2020-08-12 Outpatient EL SLE SLE [id number] [facility] 00:00:00 00:00:00 2020-08-12 2020-08-12 Travel [facility] [id number] [facility] 00:[facility] 00:[facility]:00 [facility] 2020-08-08 2020-08-08 Office EULALIO Arenas [facility] [id number] 10:55:22 11:25:22 Visit [facility] 2020-08-08 2020-08-08 Outpatient EULALIO ARENAS, MIREILLE [facility] [id number] [facility] 00:00:00 00:00:00 [facility] 2020-06-26 2020-06-26 Telephone Elsa Khan 1.2.840.9 [id number] Methodi 00:00:00 00:00:[address] 3.430.2.7 Hospit a .3.274275 l .8 2020-06-26 2020-06-26 Orders Elsa Khan 1.2.840.1 [id number] 2 [id number] Methodi 00:00:00 00:00:[address] 3.430.2.7 Hospit a .3.369707 l .8 2020-06-25 2020-06-25 Refill Deysi, 1.2.840.8 [id number] Methodi 00:00:00 00:00:[address] Andreia 3.430.2.7 Hospit a .3.549097 l .8 2017-06-01 2017-06-01 Day [facility] [id number] [place] 15:06:00 20:45:00 Surgery r Surveyor 03 l [facility] 2017-03-04 2017-03-04 Emergency [facility] [id number] [facility] 19:12:00 23:25:00 r Surveyor 02 l [facility] 2017-02-26 2017-02-26 Day [facility] [id number] [facility] 11:00:00 17:27:00 Surgery r Colin 01 l [facility] 2017-02-24 2017-02-25 Outpt Diag [facility] [id number] [facility] 15:49:00 04:59:00 Services r Outpatient 07 [facility] Results Test Description Test Time Test Comments Results Result Comments Source SARS-CoV-2 (COVID-19) RNA [Presence] in Respiratory sp ecimen by 2021-05-12 21:10:32 LUANN with probe detection Test Item Value Reference Range Interpretation Comme nts SARS-CoV-2 (COVID-19) RNA [Presence] in Respiratory Not detected No t-Detected specimen by LUANN with probe detection (test code = 03882-7) 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 (test code = 73751-8) Whether the patient has symptoms related to condition of interest (test code = 97592-4) Patient was hospitalized because of this condition (test code = 98911-8) Whether the patient was admitted to intensive care unit (ICU) for condition of interest (test code = 92936-8) Whether patient resides in a congregate care setting (test code = 14792-8) Novel Coronavirus 2018 [id number] 19:04:00 Test Item Value Reference Range Interpretation Comments Novel Coronavirus Negative Negative Positive r esults are 2019 Inhouse (test indicativ e of the presence code = COVNONPUI) ofSARS-CoV -2 RNA, clinical correlation wit h patient historyand othe r diagnostic info rmation is necessary to determinepatien t infection status. Positiv e results do not rule out bacterial infection or co -infection with other viru ses. Negative result s do not preclude SARS-C oV-2 infection andsh ould not be used as the peggy e basis for patient managementdecis ions. Negative result s must be combined with otherclinical observations, p atient history, and epidemiological information . Detection of SARS-CoV-2 RNA may be affe cted bysample collec tion methods, storag e conditions, and /or stageof infection. Alicia l RNA mutations, vacc inations, antiviraltherap eutics, antibiotics, chemotherapeuti c orimmunosuppres ilana drugs have not been e valuated for effectson d etection. Results are for the identification of SARS-CoV-2 RNA usingthe Toney M2000 Sy stem under the FDA Emergen cy UseAuthorizatio n. The testing is perf ormed by personneltraine d in the procedures for the Toney M2000 molecular diagnostic SARS-CoV-2 assa y in vitro. BASIC METABOLIC [id number] 12:29:00 Test Item Value Reference Range Interpretation Comments SODIUM (test code = NA) 143 mEq/L 134-147 N POTASSIUM (test code = 3.5 mEq/L 3.4-5.0 N K) CHLORIDE (test code = 103 mEq/L 100-108 N CL) CARBON DIOXIDE (test 31 mEq/l 21-33 N code = CO2) ANION GAP (test code = 12 0-20 N GAP) GLUCOSE (test code = 87 mg/dL 70-110 N GLU) BLOOD UREA NITROGEN 36 mg/dL 7-18 H (test code = BUN) GLOMERULAR FILTRATION 10.1 80-90 L Units of measure = RATE (test code = GFR) ml/mi n/1.73 m2 CREATININE (test code = 5.7 mg/dL 0.6-1.3 H CREAT) CALCIUM (test code = 9.2 mg/dL 8.0-10.5 N CA) CBC W/AUTO [id number] 12:11:00 Test Item Value Reference Range Interpretation Comments WHITE BLOOD CELL (test code = 6.4 x10 3/uL 4.5-11.0 N WBC) RED BLOOD CELL (test code = 3.61 x10 6/uL 4.00-5.60 L RBC) HEMOGLOBIN (test code = HGB) 11.2 g/dL 12.5-16.9 L HEMATOCRIT (test code = HCT) 35.8 % 37.5-50.7 L MEAN CELL VOLUME (test code = 99.2 fL 81.0-99.0 H MCV) MEAN CELL HGB (test code = MCH) 31.0 pg 27.0-33.0 N MEAN CELL HGB CONCETRATION 31.3 g/dL 33.0-37.0 L (test code = MCHC) RED CELL DISTRIBUTION WIDTH CV 13.8 % 11.5-14.5 N (test code = RDW) RED CELL DISTRIBUTION WIDTH SD 50.1 fL 37.0-54.0 N (test code = RDW-SD) PLATELET COUNT (test code = 85 x10 3/uL 150-400 L PLT) MEAN PLATELET VOLUME (test code 12.2 fL 7.0-9.0 H = MPV) NEUTROPHIL % (test code = NT%) 49.8 % 56.0-77.0 L IMMATURE GRANULOCYTE % (test 0.3 % 0.0-2.0 N code = IG%) LYMPHOCYTE % (test code = LY%) 29.9 % 14.0-32.0 N MONOCYTE % (test code = MO%) 10.3 % 4.8-9.0 H EOSINOPHIL % (test code = EO%) 7.7 % 0.3-3.7 H BASOPHIL % (test code = BA%) 2.0 % 0.0-2.0 N NUCLEATED RBC % (test code = 0.0 % 0-0 N NRBC%) NEUTROPHIL # (test code = NT#) 3.18 x10 3/uL 2.0-7.6 N IMMATURE GRANULOCYTE # (test 0.02 x10 3/uL 0.00-0.03 N code = IG#) LYMPHOCYTE # (test code = LY#) 1.91 x10 3/uL 1.0-3.8 N MONOCYTE # (test code = MO#) 0.66 x10 3/uL 0.1-0.8 N EOSINOPHIL # (test code = EO#) 0.49 x10 3/uL 0.0-0.2 H BASOPHIL # (test code = BA#) 0.13 x10 3/uL 0.0-0.2 N NUCLEATED RBC # (test code = 0.00 x10 3/uL 0.0-0.1 N NRBC#) MANUAL DIFF REQUIRED (test code NO = MDIFF) PLT [id number] 12:11:00 Test Item Value Reference Range Interpretation Comments PLATELET ESTIMATE (test code 84-105 THOUSAND ADEQUATE = PLTEST) PROTHROMBIN [id number] 11:58:00 Test Item Value Reference Range Interpretation Comments PROTHROMBIN TIME 13.8 SECONDS 9.3-12.9 H PATIENT (test code = PTP) INTERNATIONAL NORMAL 1.3 0.8-1.2 H TARGET RATIO (test code = INR BY IN DICATION INR) Indication INR1. Prophyl axis of venous thrombos is 2.0 - 3. 0 (orthopedic davide cash), Prophylaxis of venous thrombos is (other than hig h-risk surgery), Sakina tment of Deep Vein Thrombosis/Pulm onary Embolism, Preve ntion of systemic emb olism - Tissue heart va lves, Acute Myocardia l Infarction (to prevent systemic embo lism), Valvular heart disease, Atri al Fibrillation, Bileaflet mecha nical valve in aortic position.2. Mec hanical prosthetic valv es (high risk), 2.5 - 3.5 Presence of Lupus Anticoagu lant or Antiphospholi pid Antibodies, Pre vention of systemic e mbolism - Acute Myocard ial Infarction (t o prevent recurre nt infarct). CBC W/AUTO [id number] 11:50:00 Test Item Value Reference Range Interpretation Comments WHITE BLOOD CELL (test code = 6.4 x10 3/uL 4.5-11.0 N WBC) RED BLOOD CELL (test code = 3.61 x10 6/uL 4.00-5.60 L RBC) HEMOGLOBIN (test code = HGB) 11.2 g/dL 12.5-16.9 L HEMATOCRIT (test code = HCT) 35.8 % 37.5-50.7 L MEAN CELL VOLUME (test code = 99.2 fL 81.0-99.0 H MCV) MEAN CELL HGB (test code = MCH) 31.0 pg 27.0-33.0 N MEAN CELL HGB CONCETRATION 31.3 g/dL 33.0-37.0 L (test code = MCHC) RED CELL DISTRIBUTION WIDTH CV 13.8 % 11.5-14.5 N (test code = RDW) RED CELL DISTRIBUTION WIDTH SD 50.1 fL 37.0-54.0 N (test code = RDW-SD) PLATELET COUNT (test code = 85 x10 3/uL 150-400 L PLT) MEAN PLATELET VOLUME (test code 12.2 fL 7.0-9.0 H = MPV) NEUTROPHIL % (test code = NT%) 49.8 % 56.0-77.0 L IMMATURE GRANULOCYTE % (test 0.3 % 0.0-2.0 N code = IG%) LYMPHOCYTE % (test code = LY%) 29.9 % 14.0-32.0 N MONOCYTE % (test code = MO%) 10.3 % 4.8-9.0 H EOSINOPHIL % (test code = EO%) 7.7 % 0.3-3.7 H BASOPHIL % (test code = BA%) 2.0 % 0.0-2.0 N NUCLEATED RBC % (test code = 0.0 % 0-0 N NRBC%) NEUTROPHIL # (test code = NT#) 3.18 x10 3/uL 2.0-7.6 N IMMATURE GRANULOCYTE # (test 0.02 x10 3/uL 0.00-0.03 N code = IG#) LYMPHOCYTE # (test code = LY#) 1.91 x10 3/uL 1.0-3.8 N MONOCYTE # (test code = MO#) 0.66 x10 3/uL 0.1-0.8 N EOSINOPHIL # (test code = EO#) 0.49 x10 3/uL 0.0-0.2 H BASOPHIL # (test code = BA#) 0.13 x10 3/uL 0.0-0.2 N NUCLEATED RBC # (test code = 0.00 x10 3/uL 0.0-0.1 N NRBC#) MANUAL DIFF REQUIRED (test code NO = MDIFF) PLT [id number] 11:50:00 Test Item Value Reference Range Interpretation Comments PLATELET ESTIMATE (test code = THOUSAND ADEQUATE PLTEST) CBC W/AUTO [id number] 11:50:00 Test Item Value Reference Range Interpretation Comments WHITE BLOOD CELL (test code = 6.4 x10 3/uL 4.5-11.0 N WBC) RED BLOOD CELL (test code = 3.61 x10 6/uL 4.00-5.60 L RBC) HEMOGLOBIN (test code = HGB) 11.2 g/dL 12.5-16.9 L HEMATOCRIT (test code = HCT) 35.8 % 37.5-50.7 L MEAN CELL VOLUME (test code = 99.2 fL 81.0-99.0 H MCV) MEAN CELL HGB (test code = MCH) 31.0 pg 27.0-33.0 N MEAN CELL HGB CONCETRATION 31.3 g/dL 33.0-37.0 L (test code = MCHC) RED CELL DISTRIBUTION WIDTH CV 13.8 % 11.5-14.5 N (test code = RDW) RED CELL DISTRIBUTION WIDTH SD 50.1 fL 37.0-54.0 N (test code = RDW-SD) PLATELET COUNT (test code = 85 x10 3/uL 150-400 L PLT) MEAN PLATELET VOLUME (test code 12.2 fL 7.0-9.0 H = MPV) NEUTROPHIL % (test code = NT%) 49.8 % 56.0-77.0 L IMMATURE GRANULOCYTE % (test 0.3 % 0.0-2.0 N code = IG%) LYMPHOCYTE % (test code = LY%) 29.9 % 14.0-32.0 N MONOCYTE % (test code = MO%) 10.3 % 4.8-9.0 H EOSINOPHIL % (test code = EO%) 7.7 % 0.3-3.7 H BASOPHIL % (test code = BA%) 2.0 % 0.0-2.0 N NUCLEATED RBC % (test code = 0.0 % 0-0 N NRBC%) NEUTROPHIL # (test code = NT#) 3.18 x10 3/uL 2.0-7.6 N IMMATURE GRANULOCYTE # (test 0.02 x10 3/uL 0.00-0.03 N code = IG#) LYMPHOCYTE # (test code = LY#) 1.91 x10 3/uL 1.0-3.8 N MONOCYTE # (test code = MO#) 0.66 x10 3/uL 0.1-0.8 N EOSINOPHIL # (test code = EO#) 0.49 x10 3/uL 0.0-0.2 H BASOPHIL # (test code = BA#) 0.13 x10 3/uL 0.0-0.2 N NUCLEATED RBC # (test code = 0.00 x10 3/uL 0.0-0.1 N NRBC#) MANUAL DIFF REQUIRED (test code NO = MDIFF) PLT [id number] 11:50:00 Test Item Value Reference Range Interpretation Comments PLATELET ESTIMATE (test code = THOUSAND ADEQUATE PLTEST) CBC W/AUTO [id number] 12:22:00 Test Item Value Reference Range Interpretation Comments WHITE BLOOD CELL 6.5 x10 3/uL 4.5-11.0 N (test code = WBC) RED BLOOD CELL (test 3.94 x10 6/uL 4.00-5.60 L code = RBC) HEMOGLOBIN (test code 11.9 g/dL 12.5-16.9 L = HGB) HEMATOCRIT (test code 40.2 % 37.5-50.7 N = HCT) MEAN CELL VOLUME 102.0 fL 81.0-99.0 H (test code = MCV) MEAN CELL HGB (test 30.2 pg 27.0-33.0 N code = MCH) MEAN CELL HGB 29.6 g/dL 33.0-37.0 L CONCETRATION (test code = MCHC) RED CELL DISTRIBUTION 15.8 % 11.5-14.5 H WIDTH CV (test code = RDW) RED CELL DISTRIBUTION 59.5 fL 37.0-54.0 H WIDTH SD (test code = RDW-SD) PLATELET COUNT (test 72 x10 3/uL 150-400 L code = PLT) MEAN PLATELET VOLUME 12.7 fL 7.0-9.0 H (test code = MPV) NEUTROPHIL % (test 50.0 % 56.0-77.0 L code = NT%) IMMATURE GRANULOCYTE 0.3 % 0.0-2.0 N % (test code = IG%) LYMPHOCYTE % (test 29.4 % 14.0-32.0 N code = LY%) MONOCYTE % (test code 10.2 % 4.8-9.0 H = MO%) EOSINOPHIL % (test 8.0 % 0.3-3.7 H code = EO%) BASOPHIL % (test code 2.1 % 0.0-2.0 H = BA%) NUCLEATED RBC % (test 0.0 % 0-0 N code = NRBC%) NEUTROPHIL # (test 3.27 x10 3/uL 2.0-7.6 N code = NT#) IMMATURE GRANULOCYTE 0.02 x10 3/uL 0.00-0.03 N # (test code = IG#) LYMPHOCYTE # (test 1.92 x10 3/uL 1.0-3.8 N code = LY#) MONOCYTE # (test code 0.67 x10 3/uL 0.1-0.8 N = MO#) EOSINOPHIL # (test 0.52 x10 3/uL 0.0-0.2 H code = EO#) BASOPHIL # (test code 0.14 x10 3/uL 0.0-0.2 N = BA#) NUCLEATED RBC # (test 0.00 x10 3/uL 0.0-0.1 N code = NRBC#) MANUAL DIFF REQUIRED NO SLIDE R SUSY, (test code = MDIFF) CONSISTE NT WITH AUTO DIFF. PLT [id number] 12:22:00 Test Item Value Reference Range Interpretation Comments PLATELET ESTIMATE (test code 80-100 THOUSAND ADEQUATE = PLTEST) CBC W/AUTO [id number] 12:18:00 Test Item Value Reference Range Interpretation Comments WHITE BLOOD CELL 6.5 x10 3/uL 4.5-11.0 N (test code = WBC) RED BLOOD CELL (test 3.94 x10 6/uL 4.00-5.60 L code = RBC) HEMOGLOBIN (test code 11.9 g/dL 12.5-16.9 L = HGB) HEMATOCRIT (test code 40.2 % 37.5-50.7 N = HCT) MEAN CELL VOLUME 102.0 fL 81.0-99.0 H (test code = MCV) MEAN CELL HGB (test 30.2 pg 27.0-33.0 N code = MCH) MEAN CELL HGB 29.6 g/dL 33.0-37.0 L CONCETRATION (test code = MCHC) RED CELL DISTRIBUTION 15.8 % 11.5-14.5 H WIDTH CV (test code = RDW) RED CELL DISTRIBUTION 59.5 fL 37.0-54.0 H WIDTH SD (test code = RDW-SD) PLATELET COUNT (test 72 x10 3/uL 150-400 L code = PLT) MEAN PLATELET VOLUME 12.7 fL 7.0-9.0 H (test code = MPV) NEUTROPHIL % (test 50.0 % 56.0-77.0 L code = NT%) IMMATURE GRANULOCYTE 0.3 % 0.0-2.0 N % (test code = IG%) LYMPHOCYTE % (test 29.4 % 14.0-32.0 N code = LY%) MONOCYTE % (test code 10.2 % 4.8-9.0 H = MO%) EOSINOPHIL % (test 8.0 % 0.3-3.7 H code = EO%) BASOPHIL % (test code 2.1 % 0.0-2.0 H = BA%) NUCLEATED RBC % (test 0.0 % 0-0 N code = NRBC%) NEUTROPHIL # (test 3.27 x10 3/uL 2.0-7.6 N code = NT#) IMMATURE GRANULOCYTE 0.02 x10 3/uL 0.00-0.03 N # (test code = IG#) LYMPHOCYTE # (test 1.92 x10 3/uL 1.0-3.8 N code = LY#) MONOCYTE # (test code 0.67 x10 3/uL 0.1-0.8 N = MO#) EOSINOPHIL # (test 0.52 x10 3/uL 0.0-0.2 H code = EO#) BASOPHIL # (test code 0.14 x10 3/uL 0.0-0.2 N = BA#) NUCLEATED RBC # (test 0.00 x10 3/uL 0.0-0.1 N code = NRBC#) MANUAL DIFF REQUIRED NO SLIDE R LEEANND, (test code = MDIFF) CONSISTE NT WITH AUTO DIFF. PLT [id number] 12:18:00 Test Item Value Reference Range Interpretation Comments PLATELET ESTIMATE (test code = THOUSAND ADEQUATE PLTEST) CBC W/AUTO [id number] 12:18:00 Test Item Value Reference Range Interpretation Comments WHITE BLOOD CELL 6.5 x10 3/uL 4.5-11.0 N (test code = WBC) RED BLOOD CELL (test 3.94 x10 6/uL 4.00-5.60 L code = RBC) HEMOGLOBIN (test code 11.9 g/dL 12.5-16.9 L = HGB) HEMATOCRIT (test code 40.2 % 37.5-50.7 N = HCT) MEAN CELL VOLUME 102.0 fL 81.0-99.0 H (test code = MCV) MEAN CELL HGB (test 30.2 pg 27.0-33.0 N code = MCH) MEAN CELL HGB 29.6 g/dL 33.0-37.0 L CONCETRATION (test code = MCHC) RED CELL DISTRIBUTION 15.8 % 11.5-14.5 H WIDTH CV (test code = RDW) RED CELL DISTRIBUTION 59.5 fL 37.0-54.0 H WIDTH SD (test code = RDW-SD) PLATELET COUNT (test 72 x10 3/uL 150-400 L code = PLT) MEAN PLATELET VOLUME 12.7 fL 7.0-9.0 H (test code = MPV) NEUTROPHIL % (test 50.0 % 56.0-77.0 L code = NT%) IMMATURE GRANULOCYTE 0.3 % 0.0-2.0 N % (test code = IG%) LYMPHOCYTE % (test 29.4 % 14.0-32.0 N code = LY%) MONOCYTE % (test code 10.2 % 4.8-9.0 H = MO%) EOSINOPHIL % (test 8.0 % 0.3-3.7 H code = EO%) BASOPHIL % (test code 2.1 % 0.0-2.0 H = BA%) NUCLEATED RBC % (test 0.0 % 0-0 N code = NRBC%) NEUTROPHIL # (test 3.27 x10 3/uL 2.0-7.6 N code = NT#) IMMATURE GRANULOCYTE 0.02 x10 3/uL 0.00-0.03 N # (test code = IG#) LYMPHOCYTE # (test 1.92 x10 3/uL 1.0-3.8 N code = LY#) MONOCYTE # (test code 0.67 x10 3/uL 0.1-0.8 N = MO#) EOSINOPHIL # (test 0.52 x10 3/uL 0.0-0.2 H code = EO#) BASOPHIL # (test code 0.14 x10 3/uL 0.0-0.2 N = BA#) NUCLEATED RBC # (test 0.00 x10 3/uL 0.0-0.1 N code = NRBC#) MANUAL DIFF REQUIRED NO SLIDE R SUSY, (test code = MDIFF) CONSISTE NT WITH AUTO DIFF. 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 [facility] CBC W/AUTO [id number] 08:13:00 Test Item Value Reference Range Interpretation Comments WHITE BLOOD CELL (test code = 6.5 x10 3/uL 4.5-11.0 N WBC) RED BLOOD CELL (test code = 3.94 x10 6/uL 4.00-5.60 L RBC) HEMOGLOBIN (test code = HGB) 11.9 g/dL 12.5-16.9 L HEMATOCRIT (test code = HCT) 40.2 % 37.5-50.7 N MEAN CELL VOLUME (test code = 102.0 fL 81.0-99.0 H MCV) MEAN CELL HGB (test code = MCH) 30.2 pg 27.0-33.0 N MEAN CELL HGB CONCETRATION 29.6 g/dL 33.0-37.0 L (test code = MCHC) RED CELL DISTRIBUTION WIDTH CV 15.8 % 11.5-14.5 H (test code = RDW) RED CELL DISTRIBUTION WIDTH SD 59.5 fL 37.0-54.0 H (test code = RDW-SD) PLATELET COUNT (test code = 72 x10 3/uL 150-400 L PLT) MEAN PLATELET VOLUME (test code 12.7 fL 7.0-9.0 H = MPV) NEUTROPHIL % (test code = NT%) % 56.0-77.0 LYMPHOCYTE % (test code = LY%) % 14.0-32.0 NEUTROPHIL # (test code = NT#) x10 3/uL 2.0-7.6 LYMPHOCYTE # (test code = LY#) x10 3/uL 1.0-3.8 MANUAL DIFF REQUIRED (test code = MDIFF) COMPREHENSIVE METABOLIC [id number] 07:47:00 Test Item Value Reference Range Interpretation Comments SODIUM (test code = NA) 145 mEq/L 134-147 N POTASSIUM (test code = 3.4 mEq/L 3.4-5.0 N K) CHLORIDE (test code = 104 mEq/L 100-108 N CL) CARBON DIOXIDE (test 34 mEq/l 21-33 H code = CO2) ANION GAP (test code = 10 0-20 N GAP) GLUCOSE (test code = 80 mg/dL 70-110 N GLU) BLOOD UREA NITROGEN 16 mg/dL 7-18 (test code = BUN) GLOMERULAR FILTRATION 18.3 80-90 L Units of measure = RATE (test code = GFR) ml/mi n/1.73 m2 CREATININE (test code = 3.4 mg/dL 0.6-1.3 H CREAT) TOTAL PROTEIN (test 6.6 g/dL 6.4-8.2 N code = PROT) ALBUMIN (test code = 3.40 g/dL 3.4-5.0 N ALB) CALCIUM (test code = 8.9 mg/dL 8.0-10.5 N CA) BILIRUBIN TOTAL (test 0.40 mg/dL 0.0-1.0 N code = BILT) SGOT/AST (test code = 17 IUnit/L 15-37 N AST) SGPT/ALT (test code = 16 IUnit/L 30-65 L ALT) ALKALINE PHOSPHATASE 114 IUnit/L 20-125 N TOTAL (test code = ALKP) THROMBOPLASTIN TIME [id number] 07:38:00 Test Item Value Reference Range Interpretation Comments THROMBOPLASTIN TIME 42.3 Seconds 25.0-39.5 H Ther apeutic PARTIAL (test code = Range: 50.4 - 88.3 PTT) Seconds Effective 12/06/2018 - XR CHEST 1 [id number] 00:00:00 [facility] : 1955 Sex: M FAX: Real Chou MD [phone] [place]: St: ADM FAX: Edward Carmona MD [phone] FAX: Loyd Emerson [phone] Name: SIMONE WALLER [facility] : 1955 Age/S: 65/M [address] [place] [address] Unit #: [id number] Loc: KAREN Gomes [address] Phys: Loyd Emerson Acct: [id number] Dis Date: Status:ADM IN PHONE #: [phone] Exam Date: 03/26/2021 134 FAX #: [phone] Reason: s/p watchman EXAMS: CPT CODE: [id number] XR CHEST 1 V 60812 PROCEDURE INFORMATION: Exam: XR Chest Examdate and time: 03/26/2021 12:45 PM Age: 65 years old Clinical indication: Condition or disease; Other: Watchman; Additional info: S/P watchman TECHNIQUE: Imaging protocol: XR of the chest. Views: 1 view. Other technique: AP portable chest obtainedwith the patient semi upright. COMPARISON: DX XR CHEST 2 V 03/24/2021 11:57 AM FINDINGS: Limitations: Technique and patient body habitus.Lungs: Diffuse hazy pulmonary opacities bilateral more pronounced in the central lung zones. The pulmonary vasculature is partially obscured. Pleural spaces: Moderate volume bilateral pleural effusions. No pneumothorax. Heart/Mediastinum: Enlarged cardiac silhouette likely magnified by projection. Atrial appendage occlusion device is not clearly identified on this exam. Bones/joints: Sternotomy wires are intact. IMPRESSION: 1. Bilateral pulmonary opacities with central lung zone predominance compatible with edema. Inflammation in the differential. 2. Moderate volume bilateral pleural effusions. 3. Enlarged cardiac silhouette. at 1449 Reported and signed by: Pito Cleveland M.D. PAGE 1 Signed Report (CONTINUED) FAX: Real Chou MD [phone] [place]: St: [facility] FAX: José Carmona MD [phone] FAX: Loyd Emerson [phone] -------- Name: SIMONE WALLER [facility] : 1955 Age/S: 65/M [address] [place] [address] Unit #: [id number] [place]: [place] [address] Phys: Loyd Emerson [facility] Acct: [id number] Dis Date: Status: ADM IN PHONE #: [phone] Exam Date: 03/26/2021 1347 FAX #: [phone] Reason: s/p watchman EXAMS: CPT CODE: [id number] XR CHEST 1 V 91243 <Continued> CC: Real Olson MD; José Zimmerman MD; [facility] Technologist: Kelly Sibley RT(R) Trnscrd Date/Time/By: 03/26/2021 (4569) : By: Timothy Orig Print D/T: S: 03/26/2021 (3524) PAGE 2 Signed ReportNovel Coronavirus 2019 Inhouse 2021-03-25 10:18:00 Test Item Value Reference Range Interpretation Comments Novel Coronavirus Negative Negative Positive r esults are 2019 Inhouse (test indicativ e of the presence code = COVNONPUI) ofSARS-CoV -2 RNA, clinical correlation wit h patient historyand othe r diagnostic info rmation is necessary to determinepatien t infection status. Positiv e results do not rule out bacterial infection or co -infection with other viru ses. Negative result s do not preclude SARS-C oV-2 infection andsh ould not be used as the peggy e basis for patient managementdecis ions. Negative result s must be combined with otherclinical observations, p atient history, and epidemiological information . Detection of SARS-CoV-2 RNA may be affe cted bysample collec tion methods, storag e conditions, and /or stageof infection. Alicia l RNA mutations, vacc inations, antiviraltherap eutics, antibiotics, chemotherapeuti c orimmunosuppres ilana drugs have not been e valuated for effectson d etection. Results are for the identification of SARS-CoV-2 RNA usingthe Toney M2000 Sy stem under the FDA Emergen cy UseAuthorizatio n. The testing is perf ormed by personneltraine d in the procedures for the Toney M2000 molecular diagnostic SARS-CoV-2 assa y in vitro. BASIC METABOLIC [id number] 13:55:00 Test Item Value Reference Range Interpretation Comments SODIUM (test code = NA) 143 mEq/L 134-147 N POTASSIUM (test code = 3.9 mEq/L 3.4-5.0 N K) CHLORIDE (test code = 105 mEq/L 100-108 N CL) CARBON DIOXIDE (test 29 mEq/l 21-33 N code = CO2) ANION GAP (test code = 13 0-20 N GAP) GLUCOSE (test code = 101 mg/dL 70-110 N GLU) BLOOD UREA NITROGEN 32 mg/dL 7-18 H (test code = BUN) GLOMERULAR FILTRATION 9.3 80-90 L Units of measure = RATE (test code = GFR) ml/mi n/1.73 m2 CREATININE (test code = 6.1 mg/dL 0.6-1.3 H CREAT) CALCIUM (test code = 9.2 mg/dL 8.0-10.5 N CA) [id number] 13:55:00 Test Item Value Reference Range Interpretation Comments PREALBUMIN (test code = PREALB) 22.2 mg/dL 16.0-40.0 N BASIC METABOLIC [id number] 13:54:00 Test Item Value Reference Range Interpretation Comments SODIUM (test code = NA) 143 mEq/L 134-147 N POTASSIUM (test code = 3.9 mEq/L 3.4-5.0 N K) CHLORIDE (test code = 105 mEq/L 100-108 N CL) CARBON DIOXIDE (test 29 mEq/l 21-33 N code = CO2) ANION GAP (test code = 13 0-20 N GAP) GLUCOSE (test code = 101 mg/dL 70-110 N GLU) BLOOD UREA NITROGEN 32 mg/dL 7-18 H (test code = BUN) GLOMERULAR FILTRATION 9.3 80-90 L Units of measure = RATE (test code = GFR) ml/mi n/1.73 m2 CREATININE (test code = 6.1 mg/dL 0.6-1.3 H CREAT) CALCIUM (test code = 9.2 mg/dL 8.0-10.5 N CA) [id number] 13:54:00 Test Item Value Reference Range Interpretation Comments PREALBUMIN (test code = PREALB) mg/dL 16.0-40.0 CBC W/AUTO [id number] 13:48:00 Test Item Value Reference Range Interpretation Comments WHITE BLOOD CELL 8.2 x10 3/uL 4.5-11.0 N (test code = WBC) RED BLOOD CELL (test 4.60 x10 6/uL 4.00-5.60 N code = RBC) HEMOGLOBIN (test code 14.2 g/dL 12.5-16.9 N = HGB) HEMATOCRIT (test code 46.3 % 37.5-50.7 N = HCT) MEAN CELL VOLUME 100.7 fL 81.0-99.0 H (test code = MCV) MEAN CELL HGB (test 30.9 pg 27.0-33.0 N code = MCH) MEAN CELL HGB 30.7 g/dL 33.0-37.0 L CONCETRATION (test code = MCHC) RED CELL DISTRIBUTION 15.9 % 11.5-14.5 H WIDTH CV (test code = RDW) RED CELL DISTRIBUTION 59.9 fL 37.0-54.0 H WIDTH SD (test code = RDW-SD) PLATELET COUNT (test 113 x10 3/uL 150-400 L code = PLT) MEAN PLATELET VOLUME 10.9 fL 7.0-9.0 H (test code = MPV) NEUTROPHIL % (test 58.3 % 56.0-77.0 N code = NT%) IMMATURE GRANULOCYTE 0.2 % 0.0-2.0 N % (test code = IG%) LYMPHOCYTE % (test 23.2 % 14.0-32.0 N code = LY%) MONOCYTE % (test code 7.4 % 4.8-9.0 N = MO%) EOSINOPHIL % (test 8.5 % 0.3-3.7 H code = EO%) BASOPHIL % (test code 2.4 % 0.0-2.0 H = BA%) NUCLEATED RBC % (test 0.0 % 0-0 N code = NRBC%) NEUTROPHIL # (test 4.77 x10 3/uL 2.0-7.6 N code = NT#) IMMATURE GRANULOCYTE 0.02 x10 3/uL 0.00-0.03 N # (test code = IG#) LYMPHOCYTE # (test 1.90 x10 3/uL 1.0-3.8 N code = LY#) MONOCYTE # (test code 0.61 x10 3/uL 0.1-0.8 N = MO#) EOSINOPHIL # (test 0.70 x10 3/uL 0.0-0.2 H code = EO#) BASOPHIL # (test code 0.20 x10 3/uL 0.0-0.2 N = BA#) NUCLEATED RBC # (test 0.00 x10 3/uL 0.0-0.1 N code = NRBC#) MANUAL DIFF REQUIRED NO SLIDE R SUSY, (test code = MDIFF) CONSISTE NT WITH AUTO DIFF. PROTHROMBIN [id number] 13:29:00 Test Item Value Reference Range Interpretation Comments PROTHROMBIN TIME 11.1 SECONDS 9.3-12.9 N PATIENT (test code = PTP) INTERNATIONAL NORMAL 1.0 0.8-1.2 N TARGET RATIO (test code = INR BY IN DICATION INR) Indication INR1. Prophyl axis of venous thrombos is 2.0 - 3. 0 (orthopedic davide cash), Prophylaxis of venous thrombos is (other than hig h-risk surgery), Sakina tment of Deep Vein Thrombosis/Pulm onary Embolism, Preve ntion of systemic emb olism - Tissue heart va lves, Acute Myocardia l Infarction (to prevent systemic embo lism), Valvular heart disease, Atri al Fibrillation, Bileaflet mecha nical valve in aortic position.2. Mec hanical prosthetic valv es (high risk), 2.5 - 3.5 Presence of Lupus Anticoagu lant or Antiphospholi pid Antibodies, Pre vention of systemic e mbolism - Acute Myocard ial Infarction (t o prevent recurre nt infarct). CBC W/AUTO [id number] 13:27:00 Test Item Value Reference Range Interpretation Comments WHITE BLOOD CELL (test code = 8.2 x10 3/uL 4.5-11.0 N WBC) RED BLOOD CELL (test code = 4.60 x10 6/uL 4.00-5.60 N RBC) HEMOGLOBIN (test code = HGB) 14.2 g/dL 12.5-16.9 N HEMATOCRIT (test code = HCT) 46.3 % 37.5-50.7 N MEAN CELL VOLUME (test code = 100.7 fL 81.0-99.0 H MCV) MEAN CELL HGB (test code = MCH) 30.9 pg 27.0-33.0 N MEAN CELL HGB CONCETRATION 30.7 g/dL 33.0-37.0 L (test code = MCHC) RED CELL DISTRIBUTION WIDTH CV 15.9 % 11.5-14.5 H (test code = RDW) RED CELL DISTRIBUTION WIDTH SD 59.9 fL 37.0-54.0 H (test code = RDW-SD) PLATELET COUNT (test code = 113 x10 3/uL 150-400 L PLT) MEAN PLATELET VOLUME (test code 10.9 fL 7.0-9.0 H = MPV) NEUTROPHIL % (test code = NT%) % 56.0-77.0 LYMPHOCYTE % (test code = LY%) % 14.0-32.0 NEUTROPHIL # (test code = NT#) x10 3/uL 2.0-7.6 LYMPHOCYTE # (test code = LY#) x10 3/uL 1.0-3.8 MANUAL DIFF REQUIRED (test code = MDIFF) - XR CHEST 2 [id number] 00:00:00 [facility] : 1955 Sex: M FAX: Real Chou MD [phone] [place]: St: PRE FAX: Edward Carmona MD [phone] Name: SIMONE WALLER [facility] : 1955 Age/S: 65/M [address] [place] [address] Unit #: [id number] Loc: [place] [address] Phys[facility]é [id number] Dis Date: Status: PRE SDC PHONE #: [phone] Exam Date: 03/24/2021 1250 FAX #: [phone] Reason: WATCHMAN EXAMS: CPT CODE: [id number] XR CHEST 2 V [id number] PROCEDURE INFORMATION: Exam: XR Chest Exam date and time: 03/24/2021 11:57 AM Age: 65 years old Clinical indication: Pre-operative exam; Respiratory screening exam; Additional info: Watchman TECHNIQUE: Imaging protocol: XR of the chest. Views: 2 views. PA and Lateral COMPARISON: No relevant prior studies available. FINDINGS: Lungs: Low lung volumes. Bibasilar subsegmental atelectasis is present. Pleural spaces: Blunting of the bilateral costophrenic sulci. Heart/Mediastinum: The heart size is normal. The pulmonary vasculature is normal. The mediastinal contour is normal. The trachea is midline. Bones/joints: Mild to moderate spondylosis and facet arthropathy in the spine. Median sternotomy wires are present. Left shoulder hemiarthroplasty. IMPRESSION: 1. Blunting of the bilateral costophrenic sulci, representing small pleural effusions versus pleuroparenchymal thickening. 2. Low lung volumes withbibasilar linear atelectasis. at 1243 Reported and signed by: Lebron Raza M.D. CC: Real Olson MD; José Zimmerman MD Technologist: Abigail Aponte RT(R)(M) Trnscrd Riki e/Time/By: 03/24/2021 (8999) : By: [email or web address] Orig Print D/T: S: 03/25/2021 (0706) PAGE 1 Signed ReportECG 12 [id number] 23:33:44 Test Item Value Reference Range Interpretation Comments Ventricular rate (test code = 253) Atrial rate (test code = 255) FL interval (test code = 266) QRSD interval (test code = 260) QT interval (test code = 264) QTC interval (test code = 265) P axis 1 (test code = 267) QRS axis 1 (test code = 268) T wave axis (test code = 270) EKG impression (test Normal sinus code = 273) rhythm-Incomplete right bundle branch block-Inferior infarct (cited 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-2017)-Anterolat eral infarct (cited 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-2017)-Abnormal ECG-In automated comparison with ECG of 12-FEB-2021 19:57,-Questionable change in initial forces of Lateral leads- [facility] Complete, (w Contrast, Strain and 3D if needed)2021-02-20 22:07:06 Test Item Value Reference Range Interpretation Comments AoV Area, Vmax (test 3.91 cm2 code = 1420501776) AoV Area, VTI (test 5.59 cm2 code = 7380774911) AoV Mean PG (test code mmHg = 9515212069) AoV Peak PG (test code mmHg = 0626702583) AoV Vmax (test code = 1.15 m/s 2849293740) AoV VTI (test code = 0.00 m 0378243681) Left Atrium Dimension 4.01 cm Anterior (test code = 2410562178) LV,d (test code = 5.45 cm 9349951752) LV EF,2D (test code = 52.20 % 1432231038) LV,s (test code = 4.26 cm 4861758505) LVOT area (test code = 3.11 cm2 6379488154) LVOT Diam,S (test code 1.99 cm = 5223041756) LVOT Vmax (test code = 0.99 m/s 3054035544) LVOT VTI (test code = 0.19 m 9849285897) PV Pk Grad (test code = mmHg 5179721896) PV VMAX (test code = 1.13 m/s 7233764025) RVOT Vmax (test code = 0.80 m/s 5579744682) MV E A ratio (test code = 1736865267) MR Vmax (test code = 1.82 m/s 8236672829) E wave decelartion time msec (test code = 4365848166) MV Peak A Elliott (test 0.91 m/s code = 1444073712) MV valve area p 1/2 3.68 cm2 method (test code = 8782553153) MV Peak E Elliott (test 0.81 m/s code = 0408665987) MV stenosis pressure 59.76 ms 1/2 time (test code = 5837015025) LVOT stroke volume 0.59 cm3 (test code = 6665499756) AV LVOT peak gradient mmHg (test code = 5042180686) Ascending aorta (test 3.70 cm code = 9262983265) MV mean gradient (test mmHg code = 2225484517) LV SYS VOL (test code = 81.23 ml 1124094981) LV COLE VOL (test code 144.20 ml = 7162533643) LA area s A4C (test 21.35 cm2 code = 3918432204) LV SV Teich 2D (test 62.97 ml code = 1744158524) LV Vol s Teich PSAX 81.23 ml (test code = 3257628185) MR peak grad (test code mmHg = 1556316518) MV Vmax (test code = 1.02 m 5734499042) MV VTI Tips (test code 0.29 m = 6248211471) RVOT pk grad (test code mmHg = 6532198670) AoV Vmn (test code = 0783936073) LV FS Teich 2D (test code = 7708200009) MV AE ratio (test code = 0579648829) LV FS Cube 2D (test code = 7623512019) LVOT Vmn (test code = 1236418381) Aov area Vmn (test code 5.07 cm2 = 9773399150) LVOT mean grad (test mmHg code = 8712180607) MAX Pred HR (test code = 0000778233) 85 of MPHR (test code = 7386078667) Calc MPHR (test code = bpm 1209552437) LV SV Cube 2D (test 84.38 ml code = 8644256672) LV vol d cube 2D (test 161.67 ml code = 8642671586) LV vol s cube 2D (test 77.28 ml code = 9701857627) MV Decel slope (test 3.93 m/s2 code = 1686560481) Pred Exer Dur R1 (test code = 0569640730) Pred METS R1 (test code = 2695793849) LA Vol MOD A4C (test 60.41 ml code = 9948400887) Velocity Ratio (V1/V2) 0.86 m/s (test code = 4689) EF (test code = 43.67 % 3529220166) E/A ratio (test code = 1809967618) LVOT VTI (CM) (test 19.00 cm code = 4482700116) YARI (test code = YARI) Left Ventricular [...] localized pericardial effusion without evidence of tamponade. [facility] Thoracentesis With [id number] 18:26:53Ultrasound- guided Thoracentesis 02/19/2021 Pre-Procedure Diagnosis: Pleural effusionPost- procedure Diagnosis: Pleural effusion Instructional Technology Teacher: Dayna IsraelPersonal protective equipment: Surgical Mask; Sterile Surgical Gown; Sterile Gloves; Lead Glasses. Sedation: None. 1% lidocaine local anesthesia. Estimate blood loss: <5 mL Blood administered: NoneComplications: NoneImplants/Grafts: NoneSpecimen: None Procedure:Informed consent was obtained and the patient positioned in a sitting position in the ultrasound suite. A timeout was performed, followed by preliminary ultrasound of the chest. The back was prepped and draped in standard sterile fashion. Using real-time ultrasound guidance a 5-Israeli one-step centesis needle was advanced into the right thoracic cavity. An image was stored in the electronic medical record. Serous fluid was aspirated. At the end of the procedure the catheter was removed and a sterile dressing applied. The patient tolerated the procedure well. No complications. Findings:Large volume effusion. Impression:Successful ultrasound-guided right thoracentesis with removal of 1800 mL of fluid. - Interface, Radiology Results Incoming - 02/19/2021 1:29 PM CDT Ultrasound- guided Thoracentesis 02/19/2021re-Procedure Diagnosis: Pleural effusionPost- procedure Diagnosis: Pleural effusionOperator: Dayna IsraelPersonal protective equipment: Surgical Mask; Sterile Surgical Gown; Sterile Gloves; Lead Glasses.Sedation: None. 1% lidocaine local anesthesia.Estimate blood loss: <5 mL Blood administered: NoneComplications: NoneImplants/Grafts: NoneSpecimen: NoneProcedure:Informed consent was obtained and the patient positioned in a sitting position in the ultrasound suite. A timeout was performed, followed by preliminary ultrasound of the chest. The back was prepped and draped in standard sterile fashion.Using real-time ultrasound guidance a 5-Israeli one-step centesis needle was advanced into the right thoracic cavity. An image was stored in the electronic medical record. Serous fluid was aspirated. At the end of the procedure the catheter was removed and a sterile dressing applied. The patient tolerated the procedure well. No complications.Findings:Large volume effusion.Impression:Successful ultrasound-guided right thoracentesis with removal of 1800 mL of fluid. -[facility] 1 Vw Portable 2021-02-19 14:21:45SINGLE VIEW CHEST, 02/19/2021 Clinical History: Pleural effusion; status post thoracentesis.Technique: Portable AP chest.Comparison: 02/17/2021 Impression:1.Interval right thoracentesis with complete evacuation of fluid. No pneumothorax.2.Small to moderate left effusion.3.Basilar atelectasis.4.Cardiomegaly with sequela of sternotomy.5.No overt edema. Normal central vasculature caliber for technique.6.Demineralized skeleton with left shoulder arthroplasty. Interface, Radiology Results Incoming - 02/19/2021 9:24 AM CDT SINGLE VIEW CHEST,02/19/2021linical History: Pleural effusion; status post thoracentesis.Technique: Portable AP chest.Comparison: 02/17/2021Impression:1.Interval right thoracentesis with complete evacuation of fluid. No pneumothorax.2.Small to moderate left effusion.3.Basilar atelectasis.4.Cardiomegaly with sequela of sternotomy.5.No overt edema. Normal central vasculature caliber for technique.6.Demineralized skeletonwith left shoulder arthroplasty.[facility] [id number] 14:50:42 Test Item Value Reference Range Interpretation Comments Case number (test code = [id number]) Surgical pathology See link below for report (test code = PDF Lab Report [id number]) Result status (test code This is Final Report = [id number]) for [id number] [facility]CT [facility] Wo [id number] 07:44:34CT CHEST WO CONTRAST CLINICAL INDICATION: Abnormal xray - pleural effusion TECHNIQUE: Multidetector CT imaging of the chest was performed without intravenous contrast with multiplanar reconstructions.CT imaging was performed with iterative reconstruction technique and/or automated exposure control to reduce radiation dose. COMPARISON: 02/12/2021 IMPRESSION: The lack of intravenous contrast partially limits evaluation. Lungs and large airways: Moderate to large right pleural effusion and small left pleural effusion. Bibasilar atelectasis/scarring. Groundglass densities are seen in the pulmonary parenchyma with interlobular septal thickening, compatible with mild vascular congestion/edema. No pneumothorax. Trachea and mainstem bronchi are patent. In the left upper lobe, there is a 0.7 cm nodule.Heart and pericardium: Mild to moderate cardiomegaly. Extensive coronary artery calcifications. Moderate aortic valve and mild to moderate mitral valve calcifications. Moderate pericardial effusion. Mediastinum and juwan: Arising from right lobe of the thyroid gland, there is a 1.4 cm hypodense nodule with some punctate calcifications, which could be better assessed with nonemergent dedicated thyroid ultrasound. Small hiatal hernia. Mildly patulous esophagus. Postoperative appearance of the gastroesophageal junction and stomach. Lymph nodes: Calcified left hilar lymph nodes are identified. Some prominent mediastinal lymph nodes, without adenopathy. Vasculature: Ascending aorta is aneurysmal, measuring up to 4.5 cm at the root. Mild atherosclerotic vascular calcifications are identified. Upper abdomen: Simple cyst is seen superior pole right kidney. Calcified granulomata are seen of the spleen. Diverticulosis is seen of large bowel. Bones: Again seen are multiple acute-subacute left-sided rib fractures. There is some associated mild pleural thickening. Mild degenerative change of the thorac olumbar spine. Hemangioma are seen of the lower cervical and thoracic spine. Soft tissues: Unremarkable. Summary: Congestive heart failure is seen with mild to moderate cardiomegaly, mild vascular congestion/edema, and moderate to large right and small left pleural effusion. The size of the effusionshave both decreased compared with 02/12/2021. Moderate pericardial effusion is noted, similar to previous exam. A 0.7 cm nodule seen in the left upper lobe. A six- month follow-up CT chest is advised to assess stability. Indeterminant nodule in the right lobe of the thyroid gland would be better assessed with nonemergent thyroid ultrasound. Ascending aorta is aneurysmal measuring up to 4.5 cm at the root. Multiple acute-subacute left-sided rib fractures. [facility]-[id number] Interface, Radiology ResultsIncoming - 02/18/2021 2:[address] CHEST WO CONTRASTCLINICAL INDICATION: Abnormal xray - pleural effusionTECHNIQUE: Multidetector CT imaging of the chest was performed without intravenous contrast with multiplanar reconstructions. CT imaging was performed with iterative reconstruction technique and/or automated exposure control to reduceradiation dose.COMPARISON: 02/12/2021 IMPRESSION:The lack of intravenous contrast partially limits ev aluation.Lungs and large airways: Moderate to large right pleural effusion and small left pleural effusion. Bibasilar atelectasis/scarring. Groundglass densities are seen in the pulmonary parenchyma with interlobular septal thickening, compatible with mild vascular congestion/edema. No pneumothorax. T rachea and mainstem bronchi are patent.In the left upper lobe, there is a 0.7 cm nodule.Heart and pericardium: Mild to moderate cardiomegaly. Extensive coronary artery calcifications. Moderate aortic valve and mild to moderate mitral valve calcifications. Moderate pericardial effusion.Mediastinum andhila: Arising from right lobe of the thyroid gland, there is a 1.4 cm hypodense nodule with some punctate calcifications, which could be better assessed with nonemergent dedicated thyroid ultrasound.Small hiatal hernia. Mildly patulous esophagus. Postoperative appearance of the gastroesophageal junction and stomach.Lymph nodes: Calcified left hilar lymph nodes are identified. Some prominent mediastinal lymph nodes, without adenopathy.Vasculature: Ascending aorta is aneurysmal, measuring up to 4.5cm at the root. Mild atherosclerotic vascular calcifications are identified.Upper abdomen: Simple cyst is seen superior pole right kidney. Calcified granulomata are seen of the spleen. Diverticulosis is seen of large bowel.Bones: Again seen are multiple acute- subacute left-sided rib fractures. Thereis some associated mild pleural thickening.Mild degenerative change of the thoracolumbar spine. Hemangioma are seen of the lower cervical and thoracic spine.Soft tissues: Unremarkable.Summary:Congestive heart failure is seen with mild to moderate cardiomegaly, mild vascular congestion/edema, and moderate to large right and small left pleural effusion. The size of the effusions have both decreased com pared with 02/12/2021.Moderate pericardial effusion is noted, similar to previous exam.A 0.7 cm nodule seen in the left upper lobe. A six-month follow-up CT chest is advised to assess stability.Indeterminant nodule in the right lobe of the thyroid gland would be better assessed with nonemergent thyroid ultrasound.Ascending aorta is aneurysmal measuring up to 4.5 cm at the root.Multiple acute-subacute left-sided rib fractures.[facility]-[id number] Regional Healthcare SystemXR Chest 1 [id number] 00:16:21EXAMINATION: XR CHEST 1 CLINICAL HISTORY: Post Thoracentesis COMPARISON: 02/16/2021 IMPRESSION:A frontal radiograph of the chest is reviewed. The cardiomediastinal silhouette is unchanged. A large left pleural effusion is nearly completely resolved following thoracentesis. There is no pneumothorax. There is improved aeration in the left lung base. A small right-sided pleural effusion with rightbasilar volume loss and/or consolidation is unchanged. The patient has undergone median sternotomy. Hardware from left shoulder arthroplasty is noted. [facility]-[id number] Interface, Radiology Results 02/17/2021 7:19 PM CDT EXAMINATION: XR CHEST 1 VWCLINICAL HISTORY: Post ThoracentesisCOMPARISON: 02/16/2021IMPRESSION:A frontal radi ograph of the chest is reviewed. The cardiomediastinal silhouette is unchanged. A large left pleuraleffusion is nearly completely resolved following thoracentesis. There is no pneumothorax. There is improved aeration in the left lung base. A small right-sided pleural effusion with right basilar volume loss and/or consolidation is unchanged. The patient has undergone median sternotomy. Hardware from left shoulder arthroplasty is noted.[facility]-[id number] HospitalTransthoracic Echocardi[facility] Complete, (w Contrast, Strain and 3D if needed)2021-02-17 19:40:14 Test Item Value Reference Range Interpretation Comments Velocity Ratio (V1/V2) 0.55 m/s (test code = 4689) IVS,d (test code = 1.31 cm 0079542532) Ao root annulus (test 4.52 cm code = 9070490841) EF (test code = 51.16 % 3436589211) Ascending aorta (test 4.49 cm code = 7558485119) LVPWD,d (test code = 1.38 cm 0815359164) AoV Mean PG (test code mmHg = 5486256930) AV LVOT peak gradient mmHg (test code = 2550154326) MV valve area p 1/2 6.45 cm2 method (test code = 5810917096) PV Pk Grad (test code mmHg = 8793778776) E/A ratio (test code = 8738941546) E wave decelartion msec time (test code = 8205442090) LVOT Diam,S (test code 2.64 cm = 1550226078) LVOT area (test code = 5.47 cm2 2591695500) LVOT Vmax (test code = 0.68 m/s 8311442345) RVOT Vmax (test code = 0.83 m/s 3930026109) LVOT stroke volume 0.60 cm3 (test code = 1131333683) AoV Peak PG (test code mmHg = 6402217656) MV Peak E Elliott (test 0.62 m/s code = 4245409708) MV stenosis pressure 34.12 ms 1/2 time (test code = 9161841810) MV Peak A Elliott (test 1.05 m/s code = 1246621133) Ao Root Diameter (test 4.10 cm code = 9301137254) AoV Area, Vmax (test 3.04 cm2 code = 9375672010) AoV Area, VTI (test 2.85 cm2 code = 1362898427) AoV Vmax (test code = 1.23 m/s 1431200942) IVS/LVPW,2D (test code = 9847167623) Left Atrium Dimension 4.41 cm Anterior (test code = 0280070510) LV,d (test code = 4.97 cm 7040968688) LV,s (test code = 3.67 cm 3847964683) PV VMAX (test code = 0.95 m/s 6394448662) RVSP (TR) (test code = mmHg 9624980284) TR Vpeak (test code = 2.00 mm/s 4094615565) MV E A ratio (test code = 1237342275) RA pressure (test code mmHg = 0305531142) TR pk grad (test code mmHg = 5141258344) RVSP (test code = mmHg 5627549603) Ao Root Diameter (test 4.10 cm code = 6630389562) LV SYS VOL (test code 56.84 ml = 8196111337) LV COLE VOL (test code 116.37 ml = 3233803874) LA area s A4C (test 32.56 cm2 code = 5041481655) LA Vol MOD A4C (test 126.80 ml code = 5090427904) LV SV Teich 2D (test 59.53 ml code = 9561465918) LV Vol s Teich PSAX 56.84 ml (test code = 4664565350) RVOT pk grad (test mmHg code = 8110933415) AoV Vmn (test code = 9065261087) LA Ao Ratio Mmode (test code = 0205687980) LV FS Cube 2D (test code = 2282222189) LV FS Teich 2D (test code = 2190973423) LVOT VTI (CM) (test 11.00 cm code = 5981326625) AoV VTI (test code = 0.22 m 9048813256) LV EF,2D (test code = 59.78 % 4762249944) LVOT VTI (test code = 0.11 m 2571401670) MV AE ratio (test code = 3866198996) LVOT Vmn (test code = 2471987848) Aov area Vmn (test 2.55 cm2 code = 8286938912) LVOT mean grad (test mmHg code = 4405712136) MAX Pred HR (test code = 6367404956) 85 of MPHR (test code = 3710285280) Calc MPHR (test code = bpm 1053546201) LV SV Cube 2D (test 73.20 ml code = 8664779536) LV vol d cube 2D (test 122.45 ml code = 8978619601) LV vol s cube 2D (test 49.25 ml code = 7802088052) MV Decel slope (test 5.24 m/s2 code = 8144240441) Pred Exer Dur R1 (test code = 0246846424) Pred METS R1 (test code = 2040689654) ADD (test code = ADD) Addendum by [...] chest without contrast for further diffrerential diagnosis. [facility], 2 [id number] 13:54:00 Test Item Value Reference Range Interpretation Comments Product name (test code Red Blood Cells -1, = 25) Leukored Unit number (test code = [id number] 2441236) Product code (test code S0604G64 = 3092) Dispense status (test Transfused code = 24) Blood expiration date (test code = 302) Blood type code (test code = 308) Blood type (test code = O POSITIVE 1314) Compatibility (test code Compatible = 6400) [facility] and [id number] 03:28:00 Test Item Value Reference Range Interpretation Comments ABO grouping (test code = 883-9) O Rh type (test code = 68744-6) POS Antibody screen (gel) (test code = NEG 890-4) [facility] [id number] 20:07:40 Test Item Value Reference Range Interpretation Comments Case number (test code = [id number]) Cytology See link below for (non-gynecological) PDF Lab Report report (test code = 1178) Result status (test code This is Final Report = [id number]) for [id number] [facility] [id number] 13:11:52 Test Item Value Reference Range Interpretation Comments Urine culture (test SEE COMMENT Bacteriu boubacar screen code = 8762843) negative. [facility] ED Preliminary Interpretation - Not an [id number] 06:56:16Veronica Augustine MD 02/13/2021 3:05 [facility] ED Preliminary Interpretation - Not an OrderPerformed by: Vreonica Augustine MDAuthorized by: Veronica Augustine MD ECG reviewed byED Physician in the absence of a car lot attendant: yes Previous ECG: Previous ECG: UnavailableInterpretation: Interpretation: non-specific Rate: ECG rate: 76 ECG rate assessment: normal Rhythm: Rhythm: sinus rhythm Ectopy: Ectopy: none QRS: QRS axis: Normal QRS intervals: NormalConduction: Conduction: normal ST segments: ST segments: Non-specificT waves: T waves: non-specifi cMethodist HospitalRAD, CHEST, 1 VIEW, NON [id number] 13:19:00Reason for exam:->Post CT removalShould this be performed at the bedside?->Yes [facility] MEL : 1955 Sex: MFINAL REPORT RAD, CHEST, [...] changes.Additional findings: None. Signed: JR Culver Robert MDReptung Verified Date/Time: 08/19/2020 13:19:30 Reading Location: [facility] Radiology [facility] Metabolic [id number] 05:05:00 Test Item Value Reference Range Interpretation Comments Sodium (test code = 138 meq/L 814-542 9708-2) Potassium (test code = 3.9 meq/L 3.5-5.1 2823-3) Chloride (test code = 105 meq/L 98-107 2075-0) CO2 (test code = 22 meq/L 22-29 2028-9) BUN (test code = 49 mg/dL 7-21 H 3094-0) Creatinine (test code 6.96 mg/dL 0.57-1.25 H = 2160-0) Glucose (test code = 84 mg/dL 70-105 2345-7) Calcium (test code = 8.4 mg/dL 8.4-10.2 96124-1) EGFR (test code = 8 mL/min/1.73 [place] [address]-4) NOT ACCURATE CREATININE CLEARANCE IN PREDICTING GLOMERULAR FILTRATION RATE . ESTIMATED GFR I S NOT APPLICABLE FOR DIALYSIS PATIENTS. YARI (test code = YARI) Instructional Technology Teacher ID - EDASI Lab Interpretation Abnormal (test code = 41065-1) [facility] [id number] 05:05:00 Test Item Value Reference Range Interpretation [...] S NOT APPLICABLE FOR DIALYSIS PATIEN TS. Instructional Technology Teacher ID - QMLGAThvbupzds3534-59-34 04:58:00 Test Item Value Reference Range Interpretation Comments Magnesium (test code = 2.1 mg/dL 1.6-2.6 45393-8) YARI (test code = YARI) Instructional Technology Teacher ID - EDASI Lab Interpretation (test Normal code = 35898-2) [facility]anoPhosphorus2020-12-28 04:58:00 Test Item Value Reference Range Interpretation Comments Phosphorus (test code = 4.0 mg/dL 2.3-4.7 2777-1) YARI (test code = YARI) Instructional Technology Teacher ID - EDASI Lab Interpretation (test Normal code = 72720-7) [facility]anoMAGNESIUM2020-12-28 04:58:00 Test Item Value Reference Range Interpretation Comments MAGNESIUM (BEAKER) (test code = 2.1 mg/dL 1.6-2.6 627) Instructional Technology Teacher ID - LREFSXBIHELCNIQ1575-17-54 04:58:00 Test Item Value Reference Range Interpretation Comments PHOSPHORUS (BEAKER) (test code = 4.0 mg/dL 2.3-4.7 604) Instructional Technology Teacher ID - EDASICBC (Hemogram only)2020-08-19 04:37:00 Test Item Value Reference Range Interpretation Comments WBC (test code = 6690-2) 7.5 See_Comment [A utomated message] The system [employer] generated this result transmitted ref erence range: 3.5 - 10 .5 K/L. The refe rence range was not u sed to interpret this result as normal/abnor mal. RBC (test code = 789-8) 3.01 See_Comment L [Au tomated message] The system [employer] generated this result transmitted ref erence range: 4.63 - 6 .08 M/L. The refe rence range was not u sed to interpret this result as normal/abnor mal. MCHC (test code = 786-4) 31.5 See_Comment L [A utomated message] The system [employer] generated this result transmitted ref erence range: 32.3 - 3 6.5 GM/DL. The refe rence range was not u sed to interpret this result as normal/abnor mal. Hematocrit (test code = 27.9 % 40.1-51.0 L 4544-3) MCV (test code = 787-2) 92.7 fL 79.0-92.2 H MCH (test code = 785-6) 29.2 pg 25.7-32.2 RDW (test code = 788-0) 16.0 % 11.6-14.4 H Platelets (test code = 83 See_Comment L [Aut omated message] 777-3) The system [employer] generated this result transmitted ref erence range: 150 - 45 0 K/CU MM. The referen ce range was not u sed to interpret this result as normal/abnor mal. MPV (test code = 11.5 fL 9.4-12.4 96489-7) nRBC (test code = 413) 0 See_Comment [Aut omated message] The system [employer] generated this result transmitted ref erence range: 0 - 0 /1 00 WBC. The refere nce range was not u sed to interpret this result as normal/abnor mal. Lab Interpretation (test Abnormal code = 15957-0) [facility] (HEMOGRAM ONLY)2020-08-19 04:37:00 Test Item Value Reference [...] = 413) RAD, CHEST, 1 VIEW, NON [id number] 07:15:00Reason for exam:->chest tube [facility] : 1955 Sex: MFINAL REPORT [...] Santos Verified Date/Time: 08/18/2020 07:15:41 Reading Location: [facility] C0[facility] Consult Reading Room BASIC METABOLIC [id number] 06:04:00 Test Item Value Reference Range Interpretation [...] S NOT APPLICABLE FOR DIALYSIS PATIEN TS. Instructional Technology Teacher ID - [id number] 05:57:00 Test Item Value Reference Range Interpretation Comments MAGNESIUM (BEAKER) (test code = 2.1 mg/dL 1.6-2.6 627) Instructional Technology Teacher ID - ZZLWQTQXVLMXRJW1102-21-28 05:57:00 Test Item Value Reference Range Interpretation Comments PHOSPHORUS (BEAKER) (test code = 3.4 mg/dL 2.3-4.7 604) Instructional Technology Teacher ID - EDASICBC (HEMOGRAM ONLY)2020-08-18 05:24:00 Test [...] 0-0 (test code = 413) Prepare Leuko-Red [id number] 23:54:00 Test Item Value Reference Range Interpretation Comments CROSSMATCH (test code = 2264) COMPATIBLE Unit ABO (test code = O Pos 8646162) UNIT NUMBER (test code = [id number] 934-0) Status (test code = 5098900) [facility] Product (test code RED BLOOD CELLS = 2263) PRODUCT CODE (test code = A4763K15 933-2) [facility] Leuko-Red [id number] 23:54:00 Test Item Value Reference Range Interpretation Comments Unit ABO (test code = 6289940) O Neg UNIT NUMBER (test code = [id number] 934-0) Status (test code = 5154108) [facility] Blood Bank Product (test code PLATELETS = 2263) PRODUCT CODE (test code = Z3975J23 933-2) [facility]anoPOC-Glucose [id number] 18:47:00 Test Item Value Reference Range Interpretation Comments POC-Glucose Meter (test 178 mg/dL 70-110 H : TE STED AT [facility] code = 1538) [address] [facility], 770 30: Instructional Technology Teacher/Techni radha ID = [id number] for Lexus Bynum Lab Interpretation (test Abnormal code = 65166-7) [facility]anoPOCT-GLUCOSE [id number] 18:47:00 Test Item Value Reference Range Interpretation Comments POC-GLUCOSE METER 178 mg/dL 70-110 H : TESTED A T [facility] 6720 (BEAKER) (test code = GABRIEL Nunez [facility], 1538) [address]: Instructional Technology Teacher/Techni radha ID = [id number] for Lexus Oleary POCT-GLUCOSE [id number] 12:32:00 Test Item Value Reference Range Interpretation Comments POC-GLUCOSE METER 87 mg/dL 70-110 : TESTED A T [facility] 6720 (BEAKER) (test code = GABRIEL Nunez [facility], 1538) [address]: Instructional Technology Teacher/Techni radha ID = [id number] for JUDAH NTANNER SARS-CoV2/RT-PCR (Asymptomatic ONLY)2020-08-17 10:34:00 Test Item Value Reference Range Interpretation Comments SARS-COV2/RT-PCR Negative Not Detected, (test code = Negative, See 36581-7) external report for linked test SARS-COV-2 [facility] RAJAT PERFORMING LAB (test code = 66855-0) YARI (test code = Negative result for [...] of the Act. Fact Sheet for Healthcare Providers:https://www.[employer]/sites/default/f jose/product/documents/F act_Sheet_HC_Providers_L ich_OBOK-CxI-3.pdf Fact Sheet for Healthcare Patients:https://www.[employer]/sites/default/fi les/product/documents/Fa ct_Sheet_Patients_Lyra_S ARS-CoV-2.pdf Performing Laboratory:[facility] [place] [address] [facility]OV[facility] ([facility])2020-08-17 10:34:00 Test Item Value Reference Range Interpretation Comments SARS-COV2/RT-PCR (test Negative Not Detected, Negative, code = 5703156) See external report for linked test SARS-COV-2 PERFORMING LAB [facility] RAJAT (test code = 9698937) Negative result for this test determines that [...] 564(g) of the Act.Fact Sheet for Healthcare Providers:https://www.[employer]/sites/default/files/product/documents/Fact_Shee m_IW_Cpnnnmoxh_Vacj_CXWR-GsY-3.pdfFact Sheet for Healthcare Patients:https://www.[employer]/sites/default/files/product/ documents/Aaye_Xoahy_Gtngqysa_Vslc_WMOQ-RfJ-4.pdfPerforming Laboratory:[facility], [place] [address]NUK, CHEST, 1 VIEW, NON [id number] 09:48:00Reason for exam:->exam for possible CT removal [facility] : 1955 Sex: MFINAL REPORT [...] Persistent trace left apical pneumothorax.. Signed: Cindy Kevineport Verified Date/Time: 08/17/2020 09:48:57 Reading Location: [facility] B1 C013Y CT Body Reading Room POCT-GLUCOSE [id number] 08:35:00 Test Item Value Reference Range Interpretation Comments POC-GLUCOSE METER 83 mg/dL 70-110 : TESTED A T [facility] 67[address] (BEAKER) (test code = [place] [address], 1538) [address]: Instructional Technology Teacher/Techni radha ID = [id number] for Lexus Rodriguez BASIC METABOLIC [id number] 06:34:00 Test Item Value Reference Range Interpretation [...] S NOT APPLICABLE FOR DIALYSIS PATIEN TS. Instructional Technology Teacher ID - [id number] 06:33:00 Test Item Value Reference Range Interpretation Comments MAGNESIUM (BEAKER) (test code = 1.9 mg/dL 1.6-2.6 627) Instructional Technology Teacher ID - [id number] 06:33:00 Test Item Value Reference Range Interpretation Comments PHOSPHORUS (BEAKER) (test code = 2.9 mg/dL 2.3-4.7 604) Instructional Technology Teacher ID - EDASICBC (HEMOGRAM ONLY)2020-08-17 06:05:00 Test [...] WBC 0-0 (test code = 413) POCT-GLUCOSE [id number] 21:02:00 Test Item Value Reference Range Interpretation Comments POC-GLUCOSE METER 206 mg/dL 70-110 H : TESTED A T [facility] 67[address] (BEAKER) (test code = [facility], 1538) 7[address]: Instructional Technology Teacher/Techni radha ID = [id number] for RO CHARLES, KIMMIE POCT-GLUCOSE [id number] 17:09:00 Test Item Value Reference Range Interpretation Comments POC-GLUCOSE METER 96 mg/dL 70-110 : TESTED A T [facility] 67[address] (BEAKER) (test code = [facility], 153) 97359: Instructional Technology Teacher/Techni radha ID = [id number] for Loida schmidt Ramon POCT-GLUCOSE [id number] 12:35:00 Test Item Value Reference Range Interpretation Comments POC-GLUCOSE METER 107 mg/dL 70-110 : TESTED A T [facility] 67[address] (BEAKER) (test code = [facility] Enrique [facility], 1538) [address]68[address]: Instructional Technology Teacher/Techni radha ID = [id number] for JONATHAN AARON POCT-GLUCOSE [id number] 08:06:00 Test Item Value Reference Range Interpretation Comments POC-GLUCOSE METER 81 mg/dL 70-110 : TESTED A T [facility] 67[address] (BEAKER) (test code = [facility] Nune[facility], 1538) 767[address]: Instructional Technology Teacher/Techni radha ID = [id number] for JONATHAN HAYES BASIC METABOLIC [id number] 04:53:00 Test Item Value Reference Range Interpretation [...] S NOT APPLICABLE FOR DIALYSIS PATIEN TS. Instructional Technology Teacher ID - [id number] 04:48:00 Test Item Value Reference Range Interpretation Comments MAGNESIUM (BEAKER) (test code = 2.0 mg/dL 1.6-2.6 627) Instructional Technology Teacher ID - [id number] 04:48:00 Test Item Value Reference Range Interpretation Comments PHOSPHORUS (BEAKER) (test code = 3.3 mg/dL 2.3-4.7 604) Instructional Technology Teacher ID - EDASICalcium, [id number] 04:25:00 Test Item Value Reference Range Interpretation Comments Calcium, Ion (test code = 1994-3) 1.12 mmol/L 1.12-1.27 pH, Blood (test code = 33752-1) 7.42 [facility] CenterCAL[facility], [id number] 04:25:00 Test Item Value Reference Range Interpretation [...] = 413) RAD, CHEST, 1 VIEW, NON [id number] 04:20:00while patient is intubated or has chest tubes.Reason for exam:->Status post CV SurgeryShould thisbe performed at the bedside?->Yes [facility] : 1955 Sex: MFINAL REPORT [...] Stable contours.Additional findings: None. Signed: Jhon Eldridge Verified Date/Time: 08/16/2020 04:20:29 POCT-GLUCOSE [id number] 20:54:00 Test Item Value Reference Range Interpretation Comments POC-GLUCOSE METER 115 mg/dL 70-110 H : TESTED A T [facility] 6720 (SILVANA) (test code = [place], 1538) [address]: Instructional Technology Teacher/Techni radha ID = [id number] for RO KIMMIE SOTO U/S, [id number] 15:25:00Right pleural effusionReason for exam:- >right pleural effusion [facility] : 1955 Sex: MFINAL REPORT Ultrasound guided right thoracentesis. Clinical History: Right pleural effusion. Modality: Ultrasound. Sedation: None. Resident Medical Officer: Kamilla Marte PA-C Special Programs Director: None. Estimated Blood Loss: 1cc Specimen: 1200 [...] Leroy Verified Date/Time: 08/15/2020 15:25:50 Reading Location: [address] Ultrasound Reading Room POCT-GLUCOSE [id number] 15:12:00 Test Item Value Reference Range Interpretation Comments POC-GLUCOSE METER 92 mg/dL 70-110 : TESTED A T [facility] [address]20 (BEAKER) (test code = [address] [place], 1538) [address]: Instructional Technology Teacher/Techni radha ID = [id number] for Lexus Rodriguez RAD, CHEST, 1 VIEW, NON [id number] 14:46:00Reason for exam:->s/p right thoraShould this be performed at the bedside?->YesU/S rm 1 [facility] : 1955 Sex: MFINAL REPORT [...] MDReport Verified Date/Time: 08/15/2020 14:46:15 Reading Location: [facility] Radiology Reading Room POCT- GLUCOSE [id number] 12:27:00 Test Item Value Reference Range Interpretation Comments POC-GLUCOSE METER 118 mg/dL 70-110 H : TESTED A T [facility] [address] (RYANAKER) (test code = [facility] Nunez [facility], 1538) 6[address]: Instructional Technology Teacher/Techni radha ID = [id number] for Lexus Oleary Anti-Nuclear Antibody (MISSAEL)2020-08-15 10:57:00 Test Item Value Reference Range Interpretation Comments MISSAEL (test code = 19763-9) Positive Negative A YARI (test code = YARI) Test performed by IFA method. Lab Interpretation (test Abnormal code = 60470-1) [facility]ANA Titer & [id number] 10:57:00 Test Item Value Reference Range Interpretation Comments MISSAEL Titer (test code = 50703-6) 1:160 MISSAEL Pattern (test code = 1781) Homogeneous [facility]anoANTI-NUCLEAR ANTIBODY (MISSAEL)2020-08-15 10:57:00 Test Item Value Reference Range Interpretation Comments ANTI-NUCLEAR ANTIBODY (MISSAEL) (BEAKER) Positive Negative A (test code = 418) Test performed by IFA method.MISSAEL TITER AND [id number] 10:57:00 Test Item Value Reference Range Interpretation Comments MISSAEL TITER (BEAKER) (test code = :160 1541) MISSAEL PATTERN (BEAKER) (test code = Homogeneous 1781) [id number] 09:56:00 Test Item Value Reference Interpretation Comments Range Protime (test code = 14.9 See_Comment H [Autom ated 5902-2) message] The system which generated this result transmitted reference range : 11.9 - 14.2 seconds. The reference range was not used to interpret this result as normal/abnormal . INR (test code = 1.21 See_Comment [Automated 3191-6) message] The system which generated this result transmitted reference range : <=5.90. The reference range was not used to interpret this result as normal/abnormal . PTT (test code = 27.4 See_Comment [Automated 40743-2) message] The system which generated this result [...] valves. Lab Interpretation Abnormal (test code = 07949-2) [facility]anoPT/[id number] 09:56:00 Test Item Value Reference Range Interpretation [...] is2.5-3.5 for patients wiht mechanical heart valves.POCT-GLUCOSE [id number] 07:56:00 Test Item Value Reference Range Interpretation Comments POC-GLUCOSE METER 102 mg/dL 70-110 : TESTED A T [facility] [address] (BEAKER) (test code = [address] [place], 1538) [address]: Instructional Technology Teacher/Techni radha ID = [id number] for OR JONATHAN ZAYAS BASIC METABOLIC [id number] 06:11:00 Test Item Value Reference Range Interpretation [...] S NOT APPLICABLE FOR DIALYSIS PATIEN TS. Instructional Technology Teacher ID - FREDERIC [id number] 06:10:00 Test Item Value Reference Range Interpretation Comments MAGNESIUM (BEAKER) (test code = 1.9 mg/dL 1.6-2.6 627) Instructional Technology Teacher ID - FREDERIC [id number] 06:10:00 Test Item Value Reference Range Interpretation Comments PHOSPHORUS (BEAKER) (test code = 3.2 mg/dL 2.3-4.7 604) Instructional Technology Teacher ID - FREDERIC [facility] (HEMOGRAM ONLY)2020-08-15 05:14:00 [...] = 413) RAD, CHEST, 1 VIEW, NON [id number] 04:34:00while patient is intubated or has chest tubes.Reason for exam:->Status post CV SurgeryShould thisbe performed at the bedside?->Yes [facility] : 1955 Sex: MFINAL REPORT [...] on 08/15/2020 4:32 AM. Signed: Dane Lopez MDReport Verified Date/Time: 08/15/2020 04:34:57 IUM, [id number] 03:56:00 Test Item Value Reference Range Interpretation Comments CALCIUM IONIZED (BEAKER) (test 1.08 mmol/L 1.12-1.27 L code = 698) PH, BLOOD (BEAKER) (test code = 7.42 1810) Prepare [id number] 23:54:00 Test Item Value Reference Range Interpretation Comments CROSSMATCH (test code = 2264) COMPATIBLE Unit ABO (test code = O Pos 2015837) UNIT NUMBER (test code = [id number] 934-0) Status (test code = 3405305) TX_TIMEINCHART Blood Bank Product (test code RED BLOOD CELLS = 2263) PRODUCT CODE (test code = H1540M49 3-2) [facility]anoPrepare [id number] 23:54:00 Test Item Value Reference Range Interpretation Comments Unit ABO (test code = 1791186) O Pos UNIT NUMBER (test code = [id number] 934-0) Status (test code = 9734804) TX_TIMEINCHART Blood Bank Product (test code FFP = 2263) PRODUCT CODE (test code = H5226V78 3-2) [facility]anoPrepare [id number] 23:54:00 Test Item Value Reference Range Interpretation Comments Unit ABO (test code = 4254595) O Neg UNIT NUMBER (test code = [id number] 934-0) Status (test code = 2759328) TX_TIMEINCHART Blood Bank Product (test code PLATELETS = 2263) PRODUCT CODE (test code = O2970F82 933-2) [facility]anoU/S, ABDOMINAL, [id number] 11:53:00Abdomen limited area? Add comment if clarification is needed.->Right upper quadrantReason for exam:->Thrombocytopenia - evaluate for cirrhosis and/or splenemegalyDOCTORS HOS[facility] OF [facility]AName: [facility] : 1955 Sex: MFINAL REPORT [...] be seen with fasting. Signed: Shae Aleman MDRort Verified Date/Time: 08/14 11:53:09 Oxygen saturation, [id number] 10:46:00 Test Item Value Reference Range Interpretation Comments O2 Saturation (Measured) (test code = 92.4 % 34561-9) [facility] DelanoOXYGEN SATURATION, [id number] 10:46:00 Test Item Value Reference Range Interpretation Comments O2 SATURATION (MEASURED) (AKER) 92.4 % (test code = 1455) Hemoglobin [id number] 08:35:00 Test Item Value Reference Range Interpretation Comments Hemoglobin A1C (test code = 4548-4) 5.4 % 4.3-6.1 Lab Interpretation (test code = Normal 45059-2) [facility] DelanoHEMOGLOBIN [id number] 08:35:00 Test Item Value Reference Range Interpretation Comments HEMOGLOBIN A1C (BEAKER) (test code = 5.4 % 4.3-6.1 368) POCT-GLUCOSE [id number] 06:18:00 Test Item Value Reference Range Interpretation Comments POC-GLUCOSE METER 133 mg/dL 70-110 H : TESTED A T [facility] [address]20 (BEAKER) (test code = [place], 1538) [address]: Instructional Technology Teacher/Techni radha ID = [id number] for BRIELLE LEIVA Hepatitis C [id number] 05:53:00 Test Item Value Reference Range Interpretation Comments Hepatitis C Ab (test Nonreactive Nonreactive code = 37031-6) YARI (test code = YARI) Instructional Technology Teacher ID - FREDERIC M Lab Interpretation (test Normal code = 76015-0) [facility]anoHepatitis B [id number] 05:53:00 Test Item Value Reference Range Interpretation Comments Hep B Core Total Ab Nonreactive Nonreactive (test code = 23089-3) Hep B S Ab (test 747.6 See_Comment H [Automated code = 75974-6) message] The system which generated this result transmitted reference range : <8.0 mIU/mL. e reference range was not used to interpret this result as normal/abnormal . HBsAg Screen (test Nonreactive Nonreactive code = 5195-3) YARI (test code = Instructional Technology Teacher ID - YARI) FREDERIC M Lab Interpretation Abnormal (test code = 15153-7) [facility]anoHIV-1 Antigen with HIV-1/2 [id number] 05:53:00 Test Item Value Reference Range Interpretation Comments HIV-1 Antigen with HIV Nonreactive Nonreactive 1&2 Antibody (test code = 97389-4) YARI (test code = YARI) Instructional Technology Teacher ID - FREDERIC M Lab Interpretation (test Normal code = 16701-6) [facility] DelanoHEPATITIS C [id number] 05:53:00 Test Item Value Reference Range Interpretation Comments HEPATITIS C ANTIBODY (BEAKER) Nonreactive Nonreactive (test code = 367) Instructional Technology Teacher ID - FREDERIC MHEPATITIS B [id number] 05:53:00 Test Item Value Reference Range Interpretation Comments HEPATITIS B CORE TOTAL ANTIBODY Nonreactive Nonreactive (BEAKER) (test code = 497) HEPATITIS B SURFACE ANTIBODY 747.6 mIU/mL <8.0 H (BEAKER) (test code = 647) HEPATITIS B SURFACE ANTIGEN (2) Nonreactive Nonreactive (BEAKER) (test code = 2585) Instructional Technology Teacher ID - FREDERIC MHIV-1 ANTIGEN WITH HIV-1/2 [id number] 05:53:00 Test Item Value Reference Range Interpretation Comments HIV-1 ANTIGEN WITH HIV 1\\T\\2 Nonreactive Nonreactive ANTIBODY (2) (BEAKER) (test code = 2586) Instructional Technology Teacher ID - FREDERIC MBASIC METABOLIC [id number] 04:55:00 Test Item Value Reference Range Interpretation [...] S NOT APPLICABLE FOR DIALYSIS PATIEN TS. Instructional Technology Teacher MALLIKA DE LA GARZA MLipid [id number] 04:39:00 Test Item Value Reference Range Interpretation Comments Triglycerides (test 96 mg/dL code = 2571-8) Cholesterol (test code 79 mg/dL = 2093-3) HDL (test code = 23 mg/dL 5-9) LDL Calculated (test 37 mg/dL code = 25309-3) YARI (test code = YARI) Triglyceride Reference Range: Low Risk <150 Borderline 150-199 High Risk 200-499 Very High Risk >=500 Cholesterol Reference Range: Low Risk <200 Borderline 200-239 High Risk >240 HDL Cholesterol Reference Range: Low Risk >=60 High Risk <40 LDL Cholesterol Reference Range: Optimal <100 Near Optimal 100-129 Borderline 130-159 High 160-189 Very High >=190 Instructional Technology Teacher MALLIKA Damon [facility] 04:39:00 Test Item Value Reference Range Interpretation Comments MAGNESIUM (BEAKER) (test code = 1.9 mg/dL 1.6-2.6 627) Instructional Technology Teacher MALLIKA DE LA GARZA [id number] 04:39:00 Test Item Value Reference Range Interpretation Comments PHOSPHORUS (BEAKER) (test code = 4.5 mg/dL 2.3-4.7 604) Instructional Technology Teacher MALLIKA DE LA GARZA MLIPID [id number] 04:39:00 Test Item Value Reference Range Interpretation [...] Borderline 130-159 High 160-189 Very High >=190 Instructional Technology Teacher ID - FREDERIC PARDOD, CHEST, 1 VIEW, NON [id number] 04:33:00 while patient is intubated or has chest tubes.Reason for exam:->Status post CV SurgeryShould thisbe performed at the bedside?->Yes [facility] 1955 Sex: MFINAL REPORT [...] MDReport Verified Date/Time: 08/14/2020 04:33:06 Blood gas, [id number] 04:21:00 Test Item Value Reference Range Interpretation Comments pH, Arterial (test code 7.40 7.35-7.45 = 2744-1) pCO2, Arterial (test 48 See_Comment H [Autom ated message] code = 2019-8) The system [facility] generated this result transmit rachana reference range : 35 - 45 mm Hg. The reference range was not used to interpret this result as normal/abnormal . pO2, Arterial (test 121 See_Comment H [Automa rachana message] code = 2703-7) The system [employer] generated this result transmit rachana reference range : 80 - 90 mm Hg. The reference range was not used to interpret this result as normal/abnormal . O2 Sat, Arterial (test 98.4 % 96.0-97.0 H code = 2708-6) HCO3, Arterial (test 29 mmol/L 21-29 code = 1960-4) Base Excess, Arterial 3.7 mmol/L -2.0-3.0 H (test code = 1925-7) Patient Temperature 36.9 (test code = 8310-5) FIO2 (test code = 1819) 36 Lab Interpretation Abnormal (test code = 59699-3) [facility], [id number] 04:21:00 Test Item Value Reference Range Interpretation [...] (BEAKER) (test code = 1819) 36.0 CALCIUM, [id number] 04:14:00 Test Item Value Reference Range Interpretation [...] WBC 0-0 (test code = 413) POCT-GLUCOSE [id number] 00:43:00 Test Item Value Reference Range Interpretation Comments POC-GLUCOSE METER 129 mg/dL 70-110 H : TESTED A T [facility] 6720 (BEAKER) (test code = [place], 1538) [address]: Instructional Technology Teacher/Techni radha ID = [id number] for BRIELLE LEIVA Lactic Acid, [id number] 19:57:00 Test Item Value Reference Range Interpretation Comments Lactate, Art (test code = 1.1 mmol/L 0.5-2.2 2874) YARI (test code = YARI) Instructional Technology Teacher ID - BS Lab Interpretation (test Normal code = 83346-3) [facility]anoLACTIC ACID, [id number] 19:57:00 Test Item Value Reference Range Interpretation Comments LACTATE BLOOD ARTERIAL (2) 1.1 mmol/L 0.5-2.2 (BEAKER) (test code = 2874) Instructional Technology Teacher ID - BSHGB/HCT (H&H)-Stat [id number] 19:47:00 Test Item Value Reference Range Interpretation Comments Hemoglobin (test code = 9.2 See_Comment L [Au tomated message] 786-4) The system [employer] generated this result transmitted ref erence range: 13.0 - 1 6.8 GM/DL. The refe rence range was not u sed to interpret this result as normal/abnor mal. Hematocrit (test code = 27.0 % 40.0-50.0 L 4544-3) Lab Interpretation (test Abnormal code = 22779-8) [facility]ucose-Stat [id number] 19:47:00 Test Item Value Reference Range Interpretation Comments Glucose (test code = 2345-7) 146 mg/dL 70-110 H Lab Interpretation (test code = Abnormal 81000-7) [facility] [id number] 19:47:00 Test Item Value Reference Range Interpretation Comments Sodium (test code = 2951-2) 141 meq/L 136-145 Lab Interpretation (test code = Normal 90678-4) [facility]ano[facility]assium-Stat [id number] 19:47:00 Test Item Value Reference Range Interpretation Comments Potassium (test code = 2823-3) 3.9 meq/L 3.6-5.5 Lab Interpretation (test code = Normal 18512-1) [facility] [id number] 19:47:00 Test Item Value Reference Range Interpretation Comments SODIUM (BEAKER) (test code = 381) 141 meq/L 136-145 POTASSIUM-STAT [id number] 19:47:00 Test Item Value Reference Range Interpretation Comments POTASSIUM (BEAKER) (test code = 3.9 meq/L 3.6-5.5 379) BLOOD GAS, [id number] 19:47:00 Test Item Value Reference Range Interpretation [...] (BEAKER) (test code = 1819) 40.0 GLUCOSE-STAT [id number] 19:47:00 Test Item Value Reference Range Interpretation Comments GLUCOSE RANDOM (BEAKER) (test code 146 mg/dL 70-110 H = 652) HGB/HCT (H&H) - STAT [id number] 19:47:00 Test Item Value Reference Range Interpretation Comments HEMOGLOBIN (BEAKER) (test code = 9.2 GM/DL 13.0-16.8 L 410) HEMATOCRIT (BEAKER) (test code = 27.0 % 40.0-50.0 L 411) Hepatitis B surface [id number] 19:30:00 Test Item Value Reference Range Interpretation Comments HBsAg Screen (test code Nonreactive Nonreactive = 5195-3) YARI (test code = YARI) Specimen is considered negative for HBsAg. Lab Interpretation (test Normal code = 35061-0) [facility]anoHEPATITIS B SURFACE [id number] 19:30:00 Test Item Value Reference Range Interpretation Comments HEPATITIS B SURFACE ANTIGEN (2) Nonreactive Nonreactive (BEAKER) (test code = 2585) Specimen is considered negative for HBsAg.Thromboelastograph (TEG)2020-08-13 18:10:00 Test Item Value Reference Range Interpretation Comments TEG Activated Clotting 7.8 See_Comment H [Aut omated message] Time (test code = The system which 31286-3) generated this result transmitted ref erence range: 4.0 - 7. 0 minutes. The reference range was not used to int erpret this result as normal/abnormal . TEG Fibrinogen Activity 58.1 See_Comment L [Au tomated message] (test code = 78626-6) The sy stem which generated this result transmitted ref erence range: 61.0 - 7 3.0 degrees. The reference range was not used to int erpret this result as normal/abnormal . TEG Platelet Aggregation 49.3 See_Comment L [A utomated message] (test code = 98724-9) The sy stem which generated this result transmitted ref erence range: 55.0 - 6 5.0 MM. The referen ce range was not u sed to interpret this result as normal/abnor mal. TEG Fibrinolysis (test 0.5 % 0.0-5.0 code = 21237-6) TEG-H Activated Clotting 8.1 See_Comment H [A [...] normal/abnor mal. TEG-H Fibrinolysis (test 0.0 % 0.0-5.0 code = 1414) Lab Interpretation (test Abnormal code = 98222-8) [facility]anoTHROMBOELASTOGRAPH (TEG)2020-08-13 18:10:00 Test Item Value Reference Range [...] % 0.0-5.0 code = 1414) BLOOD GAS, [id number] 16:26:00 Test Item Value Reference Range Interpretation [...] (BEAKER) (test code = 1819) 50.0 GLUCOSE-STAT [id number] 16:26:00 Test Item Value Reference Range Interpretation Comments GLUCOSE RANDOM (BEAKER) (test code 165 mg/dL 70-110 H = 652) HGB/HCT (H&H) - STAT [id number] 16:26:00 Test Item Value Reference Range Interpretation Comments HEMOGLOBIN (BEAKER) (test code = 9.6 GM/DL 13.0-16.8 L 410) HEMATOCRIT (BEAKER) (test code = 28.0 % 40.0-50.0 L 411) SODIUM NA-STAT [id number] 16:25:00 Test Item Value Reference Range Interpretation Comments SODIUM (BEAKER) (test code = 381) 143 meq/L 136-145 POTASSIUM-STAT [id number] 16:25:00 Test Item Value Reference Range Interpretation Comments POTASSIUM (BEAKER) (test code = 3.6 meq/L 3.6-5.5 379) RAD, CHEST, 1 VIEW, NON [id number] 15:39:00Reason for exam:->pleural effusions/p intubation Should this be performed at the bedside?->Yes [facility] : 1955 Sex: MFINAL REPORT RAD, CHEST, 1 VIEW, NON DEPT INDICATION: pleural effusion COMPARISON: 1 hour prior FINDINGS: Portable frontal view of the chest. IMPRESSION: Support Lines: Stable. Lungs and pleura: Stable effusion on the right. No pneumothorax.Heart and mediastinum: Stablecontours. Stable surgical changes.Additional findings: None. Signed: JR Culver Robert MDReport Verified Date/Time: 08/13/2020 15:39:40 Reading Location: [facility] Radiology Reading Room [id number] 15:02:00 Test Item Value Reference Range Interpretation [...] is2.5-3.5 for patients wiht mechanical heart valves.Prothrombin time/[id number] 15:01:00 Test Item Value Reference Interpretation Comments [...] valves. Lab Interpretation Abnormal (test code = 61904-7) [facility]anoPROTHROMBIN TIME/[id number] 15:01:00 Test Item Value Reference Range Interpretation [...] is2.5-3.5 for patients wiht mechanical heart valves.CALCIUM, [id number] 14:59:00 Test Item Value Reference Range Interpretation Comments CALCIUM IONIZED (BEAKER) (test 1.26 mmol/L 1.12-1.27 code = 698) PH, BLOOD (BEAKER) (test code = 7.54 1810) OXYGEN SATURATION, [id number] 14:57:00 Test Item Value Reference Range Interpretation Comments O2 SATURATION (MEASURED) (BEAKER) 94.2 % (test code = 1455) Comprehensive metabolic [id number] 14:18:00 Test Item Value Reference Range Interpretation Comments Protein, Total (test 5.1 See_Comment L Specime n slightly code = 2885-2) hemolyzed [Automated message] The system which generated this result transmit rachana reference range : 6.0 - 8.3 gm/dL . The reference range was not u sed to interpret th is result as normal/abnormal . Albumin (test code = 3.0 g/dL 3.5-5.0 L Specime n slightly 64027-4) hemolyzed Alkaline Phosphatase 65 U/L 40-150 (test code = 6768-6) Total Bilirubin (test 1.0 mg/dL 0.2-1.2 Specim en slightly code = 1975-2) hemolyzed Sodium (test code = 145 meq/L 684-795 1313-2) Potassium (test code 3.9 meq/L 3.5-5.1 Specime [...] 10.4 mg/dL 8.4-10.2 H Discord ant CALCIUM 04906-3) result compared to previous result ; clinical correlation required. AST (test code = 24 U/L 5-34 Specimen sl ightly 1920-8) hemolyzed ALT (test code = 13 U/L 6-55 Specimen sl ightly 1742-6) hemolyzed EGFR (test code = 13 mL/min/1.73 [place] [address]-8) NOT ACCURATE CREATININE CLEARANCE IN PREDICTING GLOMERULAR FILTRATION RATE . ESTIMATED GFR I S NOT APPLICABLE FOR DIALYSIS PATIEN TS. GREEN[place]G (test code = YARI) Instructional Technology Teacher ID - RM Lab Interpretation Abnormal (test code = 39147-4) [facility]anoCOMPREHENSIVE METABOLIC [id number] 14:18:00 Test Item Value Reference Range Interpretation [...] S NOT APPLICABLE FOR DIALYSIS PATIEN TS. Instructional Technology Teacher ID - [id number] 14:15:00 Test Item Value Reference Range Interpretation Comments MAGNESIUM (BEAKER) 1.9 mg/dL 1.6-2.6 Specimen slightly (test code = 627) hemolyzed Instructional Technology Teacher ID - [id number] 14:15:00 Test Item Value Reference Range Interpretation Comments PHOSPHORUS (BEAKER) 3.0 mg/dL 2.3-4.7 Specimen slightly (test code = 604) hemolyzed Instructional Technology Teacher ID - RMBLOOD GAS, [id number] 14:12:00 Test Item Value Reference Range Interpretation [...] (BEAKER) (test code = 1819) 50.0 GLUCOSE-STAT [id number] 14:12:00 Test Item Value Reference Range Interpretation Comments GLUCOSE RANDOM (BEAKER) (test code 161 mg/dL 70-110 H = 652) HGB/HCT (H&H) - STAT [id number] 14:12:00 Test Item Value Reference Range Interpretation Comments HEMOGLOBIN (BEAKER) (test code = 9.8 GM/DL 13.0-16.8 L 410) HEMATOCRIT (BEAKER) (test code = 29.0 % 40.0-50.0 L 411) LACTIC ACID, [id number] 14:10:00 Test Item Value Reference Range Interpretation Comments LACTATE BLOOD 1.3 mmol/L 0.5-2.2 Specimen sligh tly ARTERIAL (2) (BEAKER) hemoly zed (test code = 2874) Instructional Technology Teacher ID - RMRAD, CHEST, 1 VIEW, NON [id number] 14:10:00Reason for exam:- >Status post CV Surgery post op day 0Should this be performed at the bedside?->[facility] 1955 Sex: MFINAL [...] MDReport Verified Date/Time: 08/13/2020 14:10:40 Reading Location: [facility] Radiology Reading Room SODIUM NA-STAT [id number] 14:04:00 Test Item Value Reference Range Interpretation Comments SODIUM (BEAKER) (test code = 381) 140 meq/L 136-145 POTASSIUM-STAT [id number] 14:04:00 Test Item Value Reference Range Interpretation [...] (BEAKER) (test code = 413) OXYGEN SATURATION, [id number] 13:57:00 Test Item Value Reference Range Interpretation Comments O2 SATURATION (MEASURED) (BEAKER) 93.6 % (test code = 1455) LACTATE DEHYDROGENASE (LDH)2020-08-13 13:28:00 Test Item Value Reference Range Interpretation Comments LACTATE DEHYDROGENASE 209 U/L 125-220 Specim en slightly (BEAKER) (test code = hemoly zed 635) Instructional Technology Teacher ID - [id number] 13:25:00 Test Item Value Reference Range Interpretation Comments PHOSPHORUS (BEAKER) 3.0 mg/dL 2.3-4.7 Specimen slightly (test code = 604) hemolyzed Instructional Technology Teacher ID - CARLAGUSTINGBILIRUBIN, TOTAL AND [id number] 13:25:00 Test Item Value Reference Range Interpretation Comments BILIRUBIN TOTAL 0.6 mg/dL 0.2-1.2 Specimen sli ghtly (BEAKER) (test code = hemoly zed 377) BILIRUBIN DIRECT 0.3 mg/dL 0.1-0.5 Specimen sl ightly (BEAKER) (test code = hemoly zed 706) Instructional Technology Teacher ID - [id number] 13:23:00 Test Item Value Reference Range Interpretation Comments Haptoglobin (test code = 61 mg/dL 14-258 4542-7) YARI (test code = YARI) Instructional Technology Teacher ID - CARLIANG Lab Interpretation (test Normal code = 57176-0) [facility]anoHAPTOGLOBIN2020-12-22 13:23:00 Test Item Value Reference Range Interpretation Comments HAPTOGLOBIN (BEAKER) (test code = 61 mg/dL 14-258 366) Instructional Technology Teacher ID - KERCYVURdgsttfsvr4775-28-06 13:22:00 Test Item Value Reference Range Interpretation Comments Fibrinogen (test code = 3255-7) 255 mg/dl 225-434 Lab Interpretation (test code = Normal 48986-1) [facility]anoaPTT2020-12-22 13:22:00 Test Item Value Reference Range Interpretation Comments PTT (test code = 38219-1) 33.2 See_Comment [ Automated message] The system [employer] generated this result transmitted ref erence range: 22.5 - 3 6.0 seconds. The re ference range was not u sed to interpret this result as normal/abnor mal. Lab Interpretation (test Normal code = 19835-9) [facility]anoFIBRINOGEN2020-12-22 13:22:00 Test Item Value Reference Range Interpretation Comments FIBRINOGEN LEVEL (BEAKER) (test 255 mg/dl 225-434 code = 658) [id number] 13:22:00 Test Item Value Reference Range Interpretation Comments PARTIAL THROMBOPLASTIN TIME 33.2 seconds 22.5-36.0 (BEAKER) (test code = 760) PROTHROMBIN TIME/[id number] 13:21:00 Test Item Value Reference Range Interpretation [...] (test code = 2532-0) 171 U/L 125-220 YRAI (test code = YARI) Instructional Technology Teacher ID - ARMIDA Lab Interpretation (test Normal code = 52686-0) [facility]anoBilirubin, total and [id number] 13:16:00 Test Item Value Reference Range Interpretation Comments Total Bilirubin (test code 1.0 mg/dL 0.2-1.2 = 1974-) Bilirubin, Direct (test 0.5 mg/dL 0.1-0.5 code = 1967-) YARI (test code = YARI) Instructional Technology Teacher ID - MONIKAG Lab Interpretation (test Normal code = 51640-0) [facility]anoBILIRUBIN, TOTAL AND [id number] 13:16:00 Test Item Value Reference Range Interpretation Comments BILIRUBIN TOTAL (BEAKER) (test code 1.0 mg/dL 0.2-1.2 = 377) BILIRUBIN DIRECT (BEAKER) (test 0.5 mg/dL 0.1-0.5 code = 706) Instructional Technology Teacher ID - ROSIANGLACTATE DEHYDROGENASE (LDH)2020-08-13 13:16:00 Test Item Value Reference Range Interpretation Comments LACTATE DEHYDROGENASE (BEAKER) (test 171 U/L 125-220 code = 635) Instructional Technology Teacher ID - ROSIANGPOC ACTIVATED CLOTTING [id number] 13:11:00 Test Item Value Reference Range Interpretation Comments Activated Clotting Time 120 sec : 74 -137 seconds, (test code = 441) Baseline: TESTED AT [address], [facility]: Instructional Technology Teacher/Techni radha ID = [id number] for KI BLER, ARELIS [facility]anoPOCT-[id number] 13:11:00 Test Item Value Reference Range Interpretation Comments ACTIVATED CLOTTING TIME 120 sec : 74 -137 seconds, (BEAKER) (test code = Baseli ne: TESTED AT 441) [address], [facility]: Instructional Technology Teacher/Techni radha ID = [id number] for KI BLER, ARELIS [id number] 13:11:00 Test Item Value Reference Range Interpretation Comments ACTIVATED CLOTTING TIME 120 sec : 74 -137 seconds, (BEAKER) (test code = Baseli ne: TESTED AT 441) [address], [address]: Instructional Technology Teacher/Techni radha ID = [id number] for KI BLER, ARELIS [id number] 13:11:00 Test Item Value Reference Range Interpretation Comments ACTIVATED CLOTTING TIME 984 sec : 74 -137 seconds, (BEAKER) (test code = Baseli ne: TESTED AT 441) [address], [facility] 30: Instructional Technology Teacher/Techni radha ID = [id number] for KI BLER, ARELIS [id number] 13:11:00 Test Item Value Reference Range Interpretation Comments ACTIVATED CLOTTING TIME 912 sec : 74 -137 seconds, (BEAKER) (test code = Baseli ne: TESTED AT 441) [address], [facility] 30: Instructional Technology Teacher/Techni radha ID = [id number] for BRIGIDO BLERARELIS [id number] 13:11:00 Test Item Value Reference Range Interpretation Comments ACTIVATED CLOTTING TIME > sec : 74 -137 seconds, (BEAKER) (test code = Baseli ne: TESTED AT 441) [address], [facility]: Instructional Technology Teacher/Techni ardha ID = [id number] for BRIGIDO BLERALVINAARELIS [id number] 13:11:00 Test Item Value Reference Range Interpretation Comments ACTIVATED CLOTTING TIME 131 sec : 74 -137 seconds, (BEAKER) (test code = Baseli ne: TESTED AT 441) [address], [facility] 30: Instructional Technology Teacher/Techni radha ID = [id number] for SUJEY CARLSON CBC with platelet count + automated [id number] 13:04:00 Test Item Value Reference Range Interpretation Comments WBC (test code = 6690-2) 8.5 See_Comment [A utomated message] The system [employer] generated this result transmitted ref erence range: 3.5 - 10 .5 K/L. The refe rence range was not u sed to interpret this result as normal/abnor mal. RBC (test code = 789-8) 2.57 See_Comment L [Au tomated message] The system [employer] generated this result transmitted ref erence range: 4.63 - 6 .08 M/L. The refe rence range was not u sed to interpret this result as normal/abnor mal. MCHC (test code = 786-4) 31.9 See_Comment L [A utomated message] The system [employer] generated this result transmitted ref erence range: 32.3 - 3 6.5 GM/DL. The refe rence range was not u sed to interpret this result as normal/abnor mal. Hematocrit (test code = 23.8 % 40.1-51.0 L 4544-3) MCV (test code = 787-2) 92.6 fL 79.0-92.2 H MCH (test code = 785-6) 29.6 pg 25.7-32.2 RDW (test code = 788-0) 16.5 % 11.6-14.4 H Platelets (test code = 181 See_Comment [Aut omated message] 777-3) The system [employer] generated this result transmitted ref erence range: 150 - 45 0 K/CU MM. The referen ce range was not u sed to interpret this result as normal/abnor mal. MPV (test code = 10.0 fL 9.4-12.4 92670-7) nRBC (test code = 413) 0 See_Comment [Aut omated message] The system [employer] generated this result transmitted ref erence range: [...] H [Aut omated message] 670) The system [employer] generated this result transmitted ref erence range: 1.78 - 5 .38 K/L. The refe rence range was not u sed to interpret this result as normal/abnor mal. # Lymphs (test code = 1.34 See_Comment [Auto mated message] 414) The system [employer] generated this result transmitted ref erence range: 1.32 - 3 .57 K/L. The refe rence range was not u sed to interpret this result as normal/abnor mal. # Monos (test code = 0.52 See_Comment [Autom ated message] 415) The system [employer] generated this result transmitted ref erence range: 0.30 - 0 .82 K/L. The refe rence range was not u sed to interpret this result as normal/abnor mal. # Eos (test code = 416) 0.12 See_Comment [Au tomated message] The system [employer] generated this result transmitted ref erence range: 0.04 - 0 .54 K/L. The refe rence range was not u sed to interpret this result as normal/abnor mal. # Baso (test code = 417) 0.02 See_Comment [A utomated message] The system [employer] generated this result transmitted ref erence range: 0.01 - 0 .08 K/L. The refe rence range was not u sed to interpret this result as normal/abnor mal. Immature 1 % 0-1 Granulocytes-Relative (test code = 2801) Lab Interpretation (test Abnormal code = 73299-0) [facility] W/PLT COUNT & AUTO [id number] 13:04:00 Test Item Value Reference Range Interpretation [...] PERCENT (BEAKER) (test code = 2801) RETICULOCYTE [id number] 13:03:00 Test Item Value Reference Range Interpretation Comments RETICULOCYTE COUNT PCT (BEAKER) (test 2.1 % 0.5-1.8 H code = 575) Instructional Technology Teacher ID - [id number] [id number] 12:58:00 Test Item Value Reference Range Interpretation Comments % Retic (test code = 1.8 % 0.5-1.8 93482-1) YARI (test code = YARI) Instructional Technology Teacher ID - [id number] Lab Interpretation (test Normal code = 29433-1) [facility]anoPlatelet [id number] 12:58:00 Test Item Value Reference Range Interpretation Comments Platelets (test code 138 See_Comment L [Autom ated = 777-3) message] The system which generated this result transmit rachana reference range : 150 - 450 K/CU MM. The reference range was not u sed to interpret th is result as normal/abnormal . YARI (test code = YARI) Instructional Technology Teacher ID - [id number] Lab Interpretation Abnormal (test code = 25448-5) [facility]anoPLATELET [id number] 12:58:00 Test Item Value Reference Range Interpretation Comments PLATELET COUNT (BEAKER) (test 138 K/CU MM 150-450 L code = 756) Instructional Technology Teacher ID - [id number] [id number] 12:58:00 Test Item Value Reference Range Interpretation Comments RETICULOCYTE COUNT PCT (BEAKER) (test 1.8 % 0.5-1.8 code = 575) Instructional Technology Teacher ID - [id number] NA-STAT [id number] 12:45:00 Test Item Value Reference Range Interpretation Comments SODIUM (BEAKER) (test code = 381) 140 meq/L 136-145 BLOOD GAS, [id number] 12:45:00 Test Item Value Reference Range Interpretation [...] (BEAKER) (test code = 1819) 100.0 GLUCOSE-STAT [id number] 12:45:00 Test Item Value Reference Range Interpretation Comments GLUCOSE RANDOM (BEAKER) (test code 179 mg/dL 70-110 H = 652) POTASSIUM-STAT [id number] 12:45:00 Test Item Value Reference Range Interpretation Comments POTASSIUM (BEAKER) (test code = 3.3 meq/L 3.6-5.5 L 379) HGB/HCT (H&H) - STAT [id number] 12:45:00 Test Item Value Reference Range Interpretation Comments HEMOGLOBIN (BEAKER) (test code = 9.8 GM/DL 13.0-16.8 L 410) HEMATOCRIT (BEAKER) (test code = 29.0 % 40.0-50.0 L 411) Peripheral Blood Smear - Hold [id number] 12:38:00 Test Item Value Reference Range Interpretation Comments Peripheral Smear Save (test code = save 1815) [facility] [id number] 12:38:00 Test Item Value Reference Range Interpretation Comments PERIPHERAL SMEAR SAVE (BEAKER) (test save code = 1815) PROTHROMBIN TIME/[id number] 12:26:00 Test Item Value Reference Range Interpretation [...] INR is2.5-3.5 for patients wiht mechanical heart valves.[id number] 12:26:00 Test Item Value Reference Range Interpretation Comments FIBRINOGEN LEVEL (BEAKER) (test 254 mg/dl 225-434 code = 658) [id number] 12:26:00 Test Item Value Reference Range Interpretation [...] 0.1 % 0.0-5.0 code = 1414) PLATELET [id number] 12:11:00 Test Item Value Reference Range Interpretation Comments PLATELET COUNT (BEAKER) (test 171 K/CU MM 150-450 code = 756) Instructional Technology Teacher ID - [id number] NA-STAT [id number] 12:02:00 Test Item Value Reference Range Interpretation Comments SODIUM (BEAKER) (test code = 381) 142 meq/L 136-145 BLOOD GAS, [id number] 12:02:00 Test Item Value Reference Range Interpretation [...] (BEAKER) (test code = 1819) 100.0 POTASSIUM-STAT [id number] 12:02:00 Test Item Value Reference Range Interpretation Comments POTASSIUM (BEAKER) (test code = 3.2 meq/L 3.6-5.5 L 379) GLUCOSE-STAT [id number] 12:02:00 Test Item Value Reference Range Interpretation Comments GLUCOSE RANDOM (BEAKER) (test code 166 mg/dL 70-110 H = 652) HGB/HCT (H&H) - STAT [id number] 12:02:00 Test Item Value Reference Range Interpretation Comments HEMOGLOBIN (BEAKER) (test code = 8.1 GM/DL 13.0-16.8 L 410) HEMATOCRIT (BEAKER) (test code = 24.0 % 40.0-50.0 L 411) CALCIUM, [id number] 12:01:00 Test Item Value Reference Range Interpretation Comments CALCIUM IONIZED (BEAKER) (test 1.12 mmol/L 1.12-1.27 code = 698) PH, BLOOD (BEAKER) (test code = 7.48 1810) [id number] 11:42:00 Test Item Value Reference Range Interpretation Comments PARTIAL THROMBOPLASTIN TIME 34.0 seconds 22.5-36.0 (BEAKER) (test code = 760) PROTHROMBIN TIME/[id number] 11:41:00 Test Item Value Reference Range Interpretation [...] INR is2.5-3.5 for patients wiht mechanical heart valves.[id number] 11:41:00 Test Item Value Reference Range Interpretation Comments FIBRINOGEN LEVEL (BEAKER) (test 255 mg/dl 225-434 code = 658) HEMOGLOBIN [id number] 11:34:00 Test Item Value Reference Range Interpretation Comments HEMOGLOBIN A1C (BEAKER) (test code = 4.9 % 4.3-6.1 368) PLATELET [id number] 11:08:00 Test Item Value Reference Range Interpretation Comments PLATELET COUNT (BEAKER) 89 K/CU MM 150-450 L POST TRANSFUSION (test code = 756) Instructional Technology Teacher ID - [id number]-STAT [id number] 11:02:00 Test Item Value Reference Range Interpretation Comments POTASSIUM (BEAKER) (test code = 3.4 meq/L 3.6-5.5 L 379) GLUCOSE-STAT [id number] 11:02:00 Test Item Value Reference Range Interpretation Comments GLUCOSE RANDOM (BEAKER) (test code 140 mg/dL 70-110 H = 652) HGB/HCT (H&H) - STAT [id number] 11:02:00 Test Item Value Reference Range Interpretation Comments HEMOGLOBIN (BEAKER) (test code = 7.5 GM/DL 13.0-16.8 L 410) HEMATOCRIT (BEAKER) (test code = 22.0 % 40.0-50.0 L 411) BLOOD GAS, [id number] 11:02:00 Test Item Value Reference Range Interpretation [...] FIO2 (BEAKER) (test code = 1819) 100.0 SODIUM NA-STAT [id number] 11:01:00 Test Item Value Reference Range Interpretation Comments SODIUM (BEAKER) (test code = 381) 140 meq/L 136-145 [id number] 10:59:00 Test Item Value Reference Range Interpretation Comments PARTIAL THROMBOPLASTIN TIME 38.7 seconds 22.5-36.0 H (BEAKER) (test code = 760) PROTHROMBIN TIME/[id number] 10:58:00 Test Item Value Reference Range Interpretation [...] INR is2.5-3.5 for patients wiht mechanical heart valves.[id number] 10:58:00 Test Item Value Reference Range Interpretation Comments FIBRINOGEN LEVEL (BEAKER) (test 250 mg/dl 225-434 code = 658) PLATELET [id number] 10:47:00 Test Item Value Reference Range Interpretation Comments PLATELET COUNT (BEAKER) (test code 7 K/CU MM 150-450 LL = 756) Instructional Technology Teacher ID - [id number] ID - [id number], [id number] 10:40:00 Test Item Value Reference Range Interpretation Comments CALCIUM IONIZED (BEAKER) (test 1.09 mmol/L 1.12-1.27 L code = 698) PH, BLOOD (BEAKER) (test code = 7.46 1810) BLOOD GAS, [id number] 10:40:00 Test Item Value Reference Range Interpretation [...] (BEAKER) (test code = 1819) 100.0 GLUCOSE-STAT [id number] 10:40:00 Test Item Value Reference Range Interpretation Comments GLUCOSE RANDOM (BEAKER) (test code 136 mg/dL 70-110 H = 652) HGB/HCT (H&H) - STAT [id number] 10:40:00 Test Item Value Reference Range Interpretation Comments HEMOGLOBIN (BEAKER) (test code = 8.0 GM/DL 13.0-16.8 L 410) HEMATOCRIT (BEAKER) (test code = 24.0 % 40.0-50.0 L 411) SODIUM NA-STAT [id number] 10:38:00 Test Item Value Reference Range Interpretation Comments SODIUM (BEAKER) (test code = 381) 139 meq/L 136-145 POTASSIUM-STAT [id number] 10:38:00 Test Item Value Reference Range Interpretation Comments POTASSIUM (BEAKER) (test code = 3.6 meq/L 3.6-5.5 379) BLOOD GAS, [id number] 09:51:00 Test Item Value Reference Range Interpretation [...] (BEAKER) (test code = 1819) 70.0 GLUCOSE-STAT [id number] 09:51:00 Test Item Value Reference Range Interpretation Comments GLUCOSE RANDOM (BEAKER) (test code 133 mg/dL 70-110 H = 652) HGB/HCT (H&H) - STAT [id number] 09:51:00 Test Item Value Reference Range Interpretation Comments HEMOGLOBIN (BEAKER) (test code = 8.3 GM/DL 13.0-16.8 L 410) HEMATOCRIT (BEAKER) (test code = 24.0 % 40.0-50.0 L 411) SODIUM NA-STAT [id number] 09:50:00 Test Item Value Reference Range Interpretation Comments SODIUM (BEAKER) (test code = 381) 140 meq/L 136-145 POTASSIUM-STAT [id number] 09:50:00 Test Item Value Reference Range Interpretation Comments POTASSIUM (BEAKER) (test code = 4.0 meq/L 3.6-5.5 379) BLOOD GAS, [id number] 09:26:00 Test Item Value Reference Range Interpretation [...] (BEAKER) (test code = 1819) 70.0 GLUCOSE-STAT [id number] 09:26:00 Test Item Value Reference Range Interpretation Comments GLUCOSE RANDOM (BEAKER) (test code 151 mg/dL 70-110 H = 652) HGB/HCT (H&H) - STAT [id number] 09:26:00 Test Item Value Reference Range Interpretation Comments HEMOGLOBIN (BEAKER) (test code = 6.8 GM/DL 13.0-16.8 L 410) HEMATOCRIT (BEAKER) (test code = 20.0 % 40.0-50.0 L 411) SODIUM NA-STAT [id number] 09:25:00 Test Item Value Reference Range Interpretation Comments SODIUM (BEAKER) (test code = 381) 140 meq/L 136-145 POTASSIUM-STAT [id number] 09:25:00 Test Item Value Reference Range Interpretation Comments POTASSIUM (BEAKER) (test code = 4.1 meq/L 3.6-5.5 379) ABORH, [id number] 08:31:00 Test Item Value Reference Range Interpretation Comments ABO Grouping (test code = 2588) O Rh Factor (test code = 2589) [facility] [id number] 07:56:00 Test Item Value Reference Range Interpretation Comments GLUCOSE RANDOM (BEAKER) (test code = 93 mg/dL 70-110 652) SODIUM NA-STAT [id number] 07:56:00 Test Item Value Reference Range Interpretation Comments SODIUM (BEAKER) (test code = 381) 141 meq/L 136-145 BLOOD GAS, [id number] 07:56:00 Test Item Value Reference Range Interpretation [...] (BEAKER) (test code = 1819) 100.0 POTASSIUM-STAT [id number] 07:56:00 Test Item Value Reference Range Interpretation Comments POTASSIUM (BEAKER) (test code = 2.8 meq/L 3.6-5.5 L 379) HGB/HCT (H&H) - STAT [id number] 07:56:00 Test Item Value Reference Range Interpretation Comments HEMOGLOBIN (BEAKER) (test code = 10.1 GM/DL 13.0-16.8 L 410) HEMATOCRIT (BEAKER) (test code = 30.0 % 40.0-50.0 L 411) CALCIUM, [id number] 07:55:00 Test Item Value Reference Range Interpretation Comments CALCIUM IONIZED (BEAKER) (test 1.13 mmol/L 1.12-1.27 code = 698) PH, BLOOD (BEAKER) (test code = 7.46 1810) Type and screen, [id number] 07:26:00 Test Item Value Reference Range Interpretation Comments Ab Scrn (test code = NEGATIVE entered manually echo 1 890-4) [facility]PREH[facility]ABOLIC [id number] 07:17:00 Test Item Value Reference Range Interpretation [...] S NOT APPLICABLE FOR DIALYSIS PATIEN TS. Instructional Technology Teacher ID - KINZAKRISTA [id number] 07:09:00 Test Item Value Reference Range Interpretation Comments MAGNESIUM (BEAKER) (test code = 2.1 mg/dL 1.6-2.6 627) Instructional Technology Teacher ID - KINZAKRISTA LLIPID [id number] 07:09:00 Test Item Value Reference Range Interpretation [...] Borderline 130-159 High 160-189 Very High >=190 Instructional Technology Teacher ID - [id number] 07:01:00 Test Item Value Reference Range Interpretation Comments PARTIAL THROMBOPLASTIN TIME 30.9 seconds 22.5-36.0 (BEAKER) (test code = 760) PROTHROMBIN TIME/[id number] 07:00:00 Test Item Value Reference Range Interpretation Comments PROTIME (SIVLANA) (test code = 14.2 seconds 11.9-14.2 759) INR (SILVANA) (test code = 370) 1.14 <=5.90 Effective 01/18/2019: PT Reference Range ChangeNew: 11.9-14.2 Previous: 11.7- 14.7RECOMMENDED COUMADIN/WARFARIN INR THERAPY RANGESSTANDARD DOSE: 2.0-3.0 Includes: PROPHYLAXIS for venous thrombosis, systemic embolization; TREATMENT for venous thrombosis and/or pulmonary embolus.HIGH RISK: Target INR is2.5-3.5 for patients wiht mechanical heart valves.RAD, CHEST, 1 VIEW, NON [id number] 07:00:00Reason for exam:->pre opShould this be performed at the bedside?->YesDOCT[facility]AName: SIMONE WALLER : 1955 Sex: MFINAL REPORT [...] 08/13/2020 07:00:58 CBC W/PLT COUNT & AUTO [id number] 06:48:00 Test Item Value Reference Range Interpretation [...] PERCENT (BEAKER) (test code = 2801) POCT-GLUCOSE [id number] 06:14:00 Test Item Value Reference Range Interpretation Comments POC-GLUCOSE METER 81 mg/dL 70-110 : TESTED A T [facility] [address] (BEAKER) (test code = [place], 1538) [id number]: Instructional Technology Teacher/Techni radha ID = [id number] for JORD AN, LACRYSTAL SARS-COV2/RT-PCR ([facility])2020-08-08 23:08:00 Test Item Value Reference Range Interpretation Comments SARS-COV2/RT-PCR (test Negative Not Detected, Negative, code = 9040831) See external report for linked test SARS-COV-2 PERFORMING LAB [facility] RAJAT (test code = 7895729) Negative result for this test determines that [...] the Toney SARS-CoV-2 assay.Fact Sheet for Healthcare Providers:https://www.t3n Magazin.toney/edward/ VG_QJOC-ImS-4_APJ_Bavr_Ddqet_17-806755.pdfFact Sheet for Healthcare Patients:https://www.t3n Magazin.iNovo Broadband/edward/NW_WJOF-LfL-1_Vjlvpdw_Mjrw_Apflj_FU_07-803575C1.pdfPerforming Laboratory:[facility] [place] [address] CHEM [id number] 19:23:0035[facility] HIRBP2975-47-11 19:23:32974 [facility] PLZGF9988-22-85 19:23:93581Mkdqjimy HermannCHEM PANEL 2017-06-01 19:23:004.6[facility]annCHE[facility] NCQXP1283-86-62 19:23:33031Eqaatieh HermannCHEM BKHWV0565-33-35 19:23:0011.6[facility]annCHE[facility] ORXPJ6138-96-02 19:23:0034.0[facility]annCHE[facility] RZJQE5164-47-98 19:23:0035[facility]annCHE[facility] CBEGQ6959-11-99 19:23:01403Wdhfmxng HermannCHEM ZNMCR5336-27-63 19:23:45979 [facility]annCHE[facility] CFFOK9064-49-25 19:23:004.6[facility]annCHEM PANEL 2017-06-01 19:23:93403Djtzupsq HermannCHEM DORUN8789-98-80 19:23:0011.6[facility]annCHEM LLKDP7892-22-81 19:23:0034.0[facility]annCHEM VETPS2182-27-96 19:23:0035[facility]annCHEM LCMHG2424-69-58 19:23:68659Zlbmqrje HermannCHEM BEYJF9925-99-89 19:23:44610Iiivenlh HermannCHEM BMHWD7956-76-16 19:23:004.6 [facility]annCHE[facility] CAIRK1035-79-20 19:23:38734Wcjsdesp HermannCHEM PANEL 2017-06-01 19:23:0011.6[facility]annCHEM GJWLR9440-98-81 19:23:0034.0[facility] BpwgcfhRBTPCDCFPW9907-74-47 15:52:0036.0[facility] BgcucjhIHFUZCYQYE8807-42-75 15:52:0033[facility] VvqybazMIVUFYWGZP0921-95-84 15:52:35131Soocfbgr Surveyor NBYHIARXZS6526-31-78 15:52:15463Ngsmsktv YtuumrqCORKCIGOTW0505-11-48 15:52:004.3 Memorial IlcgfdaSXOGWLDEEO8393-68-99 15:52:34288Eggmmtor HermannHEMATOLOGY 2017-06-01 15:52:0012.2[facility] LksmsldFZHWSIEHVC5145-44-40 15:52:0036.0[facility] LseyuefDMXZJUSDDD9103-21-67 15:52:0033[facility] RkjumbhHDMLUOBBNO4144-19-90 15:52:02837Jdyhtprs XdhfcqoGGRAGMRMQU7279-35-11 15:52:50161Mtvgdvnm Surveyor XCUPRVFHHN0295-71-06 15:52:004.3[facility] WpynjrzQAXWDQUDII7885-44-37 15:52:16239 Memorial MyhhdxvVODOKSKGFW0736-00-58 15:52:0012.2[facility] HermannHEMATOLOGY 2017-06-01 15:52:0036.0[facility]orial HbwteqhHNYQZEXWZB7895-07-61 15:52:0033[facility] FguazohNFBXOUEJHZ2907-44-31 15:52:69085Rnhhfbba EouqjcxZTGPXRETAQ7697-99-68 15:52:11003Sqkwyrmq ExznnpsNJVGRULEST4908-06-41 15:52:004.3[facility] LEPDLVMNFA0476-48-58 15:52:81658Dpejlfno VidsdjjPKPVMWYITI0555-75-88 15:52:00 12.2[facility]annCHEM GTORL0653-39-45 20:33:0011[facility] HermannCHEM PANEL 2017-03-04 20:33:0010.8[facility] HermannCHEM QKFEF4774-05-43 20:33:009.2[facility]annCHEM MATFM6737-36-91 20:33:0035[facility]annCHEM RQXPB0225-15-72 20:33:005.40[facility]annCHEM ETATW3376-34-11 20:33:47459Qtketfnd HermannCHEM VCPXJ2051-94-26 20:33:16176Ovziepus HermannCHEM AKGMR0671-25-95 20:33:003.8 [facility]annCHE[facility] JNXHX0669-63-47 20:33:0097[facility] HermannCHEM PANEL 2017-03-04 20:33:0034[facility] UbojeiiOJYLEDOJQF9619-45-68 20:33:005.4[facility] HxpeeerDVPULYNIMQ3349-04-31 20:33:000.5[facility] MegqdrkCCRHRQRWNW2984-63-78 20:33:001.1[facility] KstxkwnQUSAXNTKEW9626-91-49 20:33:003.4[facility] Surveyor ZEJLMUWGOD0347-88-10 20:33:000.1[facility] HukxrelSEBDCZFUZH0662-35-34 20:33:000.4 Memorial XrklhhbUAJDABRESB1981-86-18 20:33:0052.7[facility] HermannHEMATOLOGY 2017-03-04 20:33:0032.9[facility] OgconxeCUFRSUAHLM9616-38-42 20:33:0010.3[facility] UpiqtdjHXIVAWBOPG6059-65-91 20:33:003.6[facility] ZrxsjmiWEUANUGTRU5856-60-24 20:33:0091.1[facility]orial JlvamzxPTFJHBOSOQ0303-61-35 20:33:004.52[facility] Surveyor FIKLPQUCKY3317-05-20 20:33:0013.5[facility] PilnvliXIAOPIHYVB3627-05-71 20:33:00 Test Item Value Reference Range Interpretation Comments MCH (test code = MCH) 29.9 pg 27.0-31.0 Memorial JmboypoJJEYRGSQIY5580-90-45 20:33:0041.2[facility] HermannHEMATOLOGY 2017-03-04 20:33:008.1[facility] HlvkwmkQXTRHQWFVH2501-32-93 20:33:0032.8[facility] IjmjrlxXEGBBUUSPY0664-88-20 20:33:0014.1[facility] JpopifjVLVPBPZBQG4998-76-46 20:33:16005Jjefhwst YhkmlumOUVUHTLUPL6126-23-26 20:33:0010.3[facility] HermannCHEM DXVRP3704-38-48 20:33:0011[facility] HermannCHEM NGIQZ7373-65-86 20:33:0010.8 [facility]annCHEM WMLHC7457-59-69 20:33:009.2[facility] HermannCHEM PANEL 2017-03-04 20:33:0035[facility] HermannCHEM ZFHEB2518-49-98 20:33:005.40[facility] HermannCHEM HACSN4050-63-35 20:33:71003Yddtndow HermannCHEM VIBMK8102-43-01 20:33:88834Hlmqyzcq HermannCHEM TJWMM6445-76-31 20:33:003.8[facility] HermannCHEM WPVHD4470-51-47 20:33:0097[facility] HermannCHEM NJOJK1915-98-38 20:33:0034 Memorial DvbslmaWVBUPPMLQK1045-42-29 20:33:005.4[facility] HermannHEMATOLOGY 2017-03-04 20:33:000.5[facility] ZsglztxGELKYDKPBQ4770-30-20 20:33:001.1[facility] PzohnnbMYANGMLUVT1996-94-76 20:33:003.4[facility] HkhvhhrCVDADANOSC9486-90-59 20:33:000.1[facility] OgzzmehBBUUHXQLLE2844-89-05 20:33:000.4[facility] Colin FWIKENWUDC6301-12-68 20:33:0052.7[facility] XyfjtwsCKPFVSPPRJ0821-73-87 20:33:00 32.9[facility] NyovsjrWLYSSOQSOQ7623-23-74 20:33:0010.3[facility] HermannHEMATOLOGY 2017-03-04 20:33:003.6[facility] JlzddxfOTABBBXETJ2351-96-01 20:33:0091.1[facility] XuyguknPMAOKRBAHT1923-71-79 20:33:004.52[facility] XncztsrBDVFCASAVT9410-03-71 20:33:0013.5[facility] EdofsqyYVJTPYPJLT0641-63-12 20:33:00 Test Item Value Reference Range Interpretation Comments MCH (test code = MCH) 29.9 pg 27.0-31.0 Memorial ChcelxsXZHGYHUOBG3388-72-13 20:33:0041.2[facility] HermannHEMATOLOGY 2017-03-04 20:33:008.1[facility] PikisfcTDIDABMPKZ3684-35-66 20:33:0032.8[facility]orial VglgjppVXURRICWAB3560-73-39 20:33:0014.1[facility] CtnjudeZQMHLUZNBR3879-09-83 20:33:06126Skadydfy AxrwhtrWGONIEJZHY8787-38-02 20:33:0010.3[facility] HermannCHEM LVHYY7789-34-12 20:33:0011[facility] HermannCHEM KYCVQ2377-62-89 20:33:0010.8 [facility] HermannCHEM FSGNO3158-64-29 20:33:009.2[facility] HermannCHEM PANEL 2017-03-04 20:33:0035[facility] HermannCHEM AURRK7072-03-34 20:33:005.40[facility] HermannCHEM ZLRTF4832-43-86 20:33:02866Hueykduu HermannCHEM PJLRE4975-63-17 20:33:53044Mymezlju HermannCHEM FUDFB8333-82-47 20:33:003.8[facility] HermannCHEM TIMQX8065-58-05 20:33:0097[facility] HermannCHEM QLJNF0706-65-35 20:33:0034 Memorial KgopzsuLBIGLYGYTW1998-25-49 20:33:005.4[facility] HermannHEMATOLOGY 2017-03-04 20:33:000.5[facility] FniqdijAHHBWPADYS3031-86-88 20:33:001.1[facility] MmwrfcgNRXWZSEYOK9040-94-24 20:33:003.4[facility] RxevcwcIAIJBUQCWP0954-70-98 20:33:000.1[facility] RoacqwcTOKJXGFRZC3638-63-91 20:33:000.4[facility] Surveyor STOLRCOJOV9524-32-53 20:33:0052.7[facility] BwfzhasJQMDWIQRUA9981-51-83 20:33:00 32.9[facility] TngimemUVCCCSINLH3426-73-94 20:33:0010.3[facility] HermannHEMATOLOGY 2017-03-04 20:33:003.6[facility] GlyxyetKZQLKZYETZ3467-21-23 20:33:0091.1[facility] MwawyriPKOZXTBBQA5002-16-26 20:33:004.52[facility] PsbzogpGQQNUTHXEY9825-89-24 20:33:0013.5[facility] CmcaffjLHIWQVXPGM1331-85-35 20:33:00 Test Item Value Reference Range Interpretation Comments MCH (test code = MCH) 29.9 pg 27.0-31.0 Memorial LnzbklnICKSAXFPXI2086-01-01 20:33:0041.2[facility] HermannHEMATOLOGY 2017-03-04 20:33:008.1[facility] FwdkccgLUGRCHOKCA4102-29-25 20:33:0032.8[facility] XempidjYFCDHSVFUL2043-54-59 20:33:0014.1[facility] CcktxlkENKVFAWPNK1902-66-95 20:33:84421Gqajjwyv SvuieupDPZLNXZNIK3969-63-13 20:33:0010.3[facility] Surveyor OBSXGLKLQL9973-83-92 15:26:0013.9[facility] XdggrrrYUCEAXLDGX0776-90-27 15:26:00 126[facility] KmbzgacBDXBMOQHRO4907-59-45 15:26:0043[facility] HermannHEMATOLOGY 2017-02-26 15:26:0041.0[facility] UixgjayBQSTUNFDYV8493-37-75 15:26:004.1[facility] QvoorsoPAXLCKDCZM0954-56-75 15:26:25562Bnbglaxs SqubimzQKYXCNMPPK2029-11-57 15:26:73677Cofbeizb AjknuyyLTWMJJYWBM6399-72-09 15:26:0013.9[facility] Surveyor KVXCCFPRAL9939-41-33 15:26:25009Tzcooids FgpizdbNPDUBAKAND7997-05-20 15:26:0043 [facility] EhgpoerMTCZRDFCQR7740-37-90 15:26:0041.0[facility] HermannHEMATOLOGY 2017-02-26 15:26:004.1[facility] InvfqhrRECJJJSOEA8566-75-61 15:26:70957Jlbqcygl QmcclzpRPUOHGUIAG4392-30-28 15:26:68916Dnkheiah QniwjnbFGKFJKTQDX4388-23-46 15:26:0013.9[facility] YedgtytOGNTINYOMT9777-35-98 15:26:84964Bgqyjxon Surveyor FXIPMLGDBF9612-46-04 15:26:0043[facility] PghcjtkGRPFHWJKYH1658-88-05 15:26:0041.0 [facility] BohknfsZEQDOFCRPQ6307-53-05 15:26:004.1[facility]annHEMATOLOGY 2017-02-26 15:26:56913Wfxaodpk QzhpcnbUKVYRINSHN4023-36-27 15:26:02734Jzkdlzgt YairbtnHLTLVHFAZDTM9979-34-04 11:43:48940Ndklliom XvikuizFGUMDOPANLJG1352-49-54 11:43:0046[facility] YpjhrigXEQWMUYQBBRA7597-84-27 11:43:16704Nwqbjfgw Surveyor GSVTDCHLWQOM0003-76-04 11:43:004.3[facility] LaoimnrVYVGATHGPXNU5362-24-60 11:43:13765Tnimhiba YolzrzdQVBYEASHHTLO5648-43-82 11:43:0015.6[facility] Surveyor LULKDHZCTLTG3924-47-90 11:43:0046.0[facility] FmftaaeUVONIJWLTVRD4398-39-01 11:43:64218Udrcwvbk GujgxcuOXHJWEAATMSW4718-55-33 11:43:0046[facility] CNDTOVPCLOPY6731-36-19 11:43:94453Nankisko RwbobcmVMUKKSMRKLLV1611-82-16 11:43:004.3[facility] KpjhxdxQQDISZWARCOA6857-51-98 11:43:66374Xkifmglb Surveyor QEKOIUZRONRL8085-91-84 11:43:0015.6[facility] RebnrdlUCPIWXQWWSZB3990-10-91 11:43:0046.0[facility] OckusgqOQBNHJNWDISJ2972-60-47 11:43:31055Sljvjwry Colin XJPDBRDSPFGJ4008-25-22 11:43:0046[facility] ZiqagylHLYTLEENXEQM0615-63-27 11:43:00 103[facility] YvwwrqeLMMMSBPGYRRN8493-22-45 11:43:004.3[facility] HOESZETUJIZO8735-77-41 11:43:67840Gibyhgnl QkwrhjpGZJHTTYCNOKR5583-63-73 11:43:0015.6[facility] IpkixvyCOAFHOJTXUUM1730-78-21 11:43:0046.0[facility] BLOOD BANK AKSQOCL5606-41-40 15:22:00Negative (02/24/17 10:22 AM)[facility] SQSQBGEXMLUX0409-91-03 15:22:0013.1[facility] CssjxlcMLTCEPJXKUVK8668-95-35 15:22:0011[facility] PwjycneVVNBPZMKVQKR5481-20-96 15:22:009.3[facility] QTBDRITHWWGJ4646-94-06 15:22:63354Govuzdyh DqllwxyQVKSHUWYGPIP6463-36-57 15:22:0028[facility] NojibkdLMNBFGDFHNME0615-76-95 15:22:98909Gxivajeb Surveyor QYBHPGGJGKMA7375-67-86 15:22:004.1[facility] VgikjntLOCZNAYQSCQD4394-99-90 15:22:005.30[facility] BnyiksiXPFDLUEPJZYG7229-34-74 15:22:0047[facility] FXEKMJFUKNYA7850-98-13 15:22:44935Wxhezdns IiizmvtRMJCYAQVYW5635-88-32 15:22:00 Test Item Value Reference Range Interpretation Comments PT (test code = PT) 12.7 s 12.0-14.7 [facility] KzinlceGRXGZJFACR0799-87-59 15:22:000.93[facility] 2017-[facility]-24 15:22:00 Test Item Value Reference Range Interpretation Comments PTT (test code = PTT) 28.3 s 22.9-35.8 [facility] CrxjmhgOAABZEMJWC6225-18-05 15:22:008.7[facility] 2017-02-24 15:22:33572Spfsgflv DuaaefxDENIAMDRVP3690-31-74 15:22:0032.9[facility] ZampcugCZDLOJLFQV8565-14-84 15:22:0014.7[facility] AwdqxnjRWAUETNYXW9683-14-38 15:22:004.73[facility] LphstfqLDLPXYJJVH2336-24-97 15:22:0014.1[facility] SQRYCUOOMX3813-82-76 15:22:0012.8[facility] QkhyrhwMYVLWTSUVH7930-81-76 15:22:00 90.2[facility] TretizrBHTURJJJSR9905-30-28 15:22:0042.7[facility] 2017-02-24 15:22:00 Test Item Value Reference Range Interpretation Comments MCH (test code = MCH) 29.7 pg 27.0-31.0 [facility] DxwxzotFZJWGKKHGP8296-97-06 15:22:000.1[facility] 2017-02-24 15:22:008.0[facility] YhlbyebHZOUHTEMAH2545-70-59 15:22:001.0[facility] TjcurilJDRFYAICUJ8667-50-51 15:22:007.6[facility] HheubksOPQQRFMPUL0645-06-43 15:22:003.4[facility] MfvotbrHOBMXDVVGQ3224-62-96 15:22:003.6[facility] IEQDJJCYIA7064-44-02 15:22:0028.2[facility] AshzvfvDBJNIQZJAD9431-28-47 15:22:00 0.4[facility] GiawcvkLYEILRSCEI3097-99-66 15:22:001.0[facility] 2017-02-24 15:22:0059.4[facility]annSPECIAL LOOVNVVSZ4747-73-39 15:22:008.0 [facility] NAEGYOH8575-85-90 15:22:00Negative (02/24/17 10:22 AM) [facility] XtnqcgxWFYYUNRFGQUC3174-05-11 15:22:0013.1[facility]annELECTROLYTES 2017-02-24 15:22:0011[facility] BmahirfDJEDKMRVADEF1109-12-05 15:22:009.3[facility] FupfjdhNQMZWFAVWQMS0712-47-41 15:22:67345Ughfixbc XzdnudrSNKTXRDZGJBV5020-53-05 15:22:0028[facility] EzqdgpuOVQBEQYBHZHY6487-64-17 15:22:51318Iylzdsnk Surveyor AZDKWPXGSBLS3549-71-89 15:22:004.1[facility] BhvuxkqJNREYXJXBLHP9398-58-98 15:22:005.30[facility] UyvsmmbFKUMVLTXXAYK1590-45-17 15:22:0047[facility] MYESRSCYIAQY0193-62-49 15:22:41458Pjhljsil BchjngaSNMFULOXLY6951-17-45 15:22:00 Test Item Value Reference Range Interpretation Comments PT (test code = PT) 12.7 s 12.0-14.7 [facility] QmktumnQVULNEOHSJ9709-70-31 15:22:000.93[facility] 2017-02-24 15:22:00 Test Item Value Reference Range Interpretation Comments PTT (test code = PTT) 28.3 s 22.9-35.8 [facility] YtqhffrBRNYHIPJRG5548-10-23 15:22:008.7[facility]HE[facility]OLOGY 2017-02-24 15:22:75908Dkkmoqyj IhokawiIBSBEJKIEL2454-17-37 15:22:0032.9[facility] GcgyvlvGSEULJVGSZ9375-76-84 15:22:0014.7[facility] CthiyimXDSHFZWNSI6479-08-40 15:22:004.73[facility] GqqszimHYISZQPIWY6087-78-31 15:22:0014.1[facility] SDCFZAWXIW4705-64-44 15:22:0012.8[facility] OblwbhqXHUVYTJRTJ8454-53-49 15:22:00 90.2[facility] PmdezqyIAGQTHMLGJ3641-16-15 15:22:0042.7[facility] 2017-02-24 15:22:00 Test Item Value Reference Range Interpretation Comments MCH (test code = MCH) 29.7 pg 27.0-31.0 [facility] TbdxdwmLYSZCWRXTJ4901-77-78 15:22:000.1[facility]HE[facility] 2017-02-24 15:22:008.0[facility] NcmowggNKKASMATGE9001-27-68 15:22:001.0[facility] IcerlupIOQGSZITGH8256-05-18 15:22:007.6[facility] OeksgvvMBILESJDLF3760-22-00 15:22:003.4[facility] JqexzwlTIKQFMHCJS7308-09-42 15:22:003.6[facility] CIQJKYSVTR2494-10-34 15:22:0028.2[facility] AvgjxkkMSRXOARRJM8151-65-54 15:22:00 0.4[facility] AbtlbieYZGKCKXSPP5655-96-50 15:22:001.0[facility] HermannHEMATOLOGY 2017-02-24 15:22:0059.4[facility] HermannSPECIAL MTQATZVJP7800-98-39 15:22:008.0 [facility] HermannBLOOD BANK NSOGBKZ6746-02-86 15:22:00Negative (02/24/17 10:22 AM) [facility] SkwenrcZAXGTFNURTOF2094-15-42 15:22:0013.1[facility] HermannELECTROLYTES 2017-02-24 15:22:0011[facility] HnqipefNYTAAXXFERTF6665-44-09 15:22:009.3[facility] XqifvorGHFZYYZGJFFL9869-03-70 15:22:29256Gpxngees TpnnjpuDOMPHXMSFTWO4680-31-85 15:22:0028[facility] RqjucpxPDUOCQNAYQJN4386-21-26 15:22:87414Ichbuwsn Surveyor EJYLEHZDYESQ1172-05-18 15:22:004.1[facility] TkxoasiYYXDPBGWAMRP2759-31-49 15:22:005.30[facility] PjbvwjpFNMWYOLDKPDL3156-03-10 15:22:0047[facility] Surveyor DONWZWLFZUCW6831-33-08 15:22:02247Kqidjmna NzhemutGKXNBPJZHL3923-23-83 15:22:00 Test Item Value Reference Range Interpretation Comments PT (test code = PT) 12.7 s 12.0-14.7 [facility] CaibmhwJKCRCXPBOW4767-03-77 15:22:000.93[facility]annHEMATOLOGY 2017-02-24 15:22:00 Test Item Value Reference Range Interpretation Comments PTT (test code = PTT) 28.3 s 22.9-35.8 [facility] YtrefnyCOOBTJDQFC0090-60-01 15:22:008.7[facility] HermannHEMATOLOGY 2017-02-24 15:22:09620Xaygrltb IxgvemsENFNTHDNPW2025-44-65 15:22:0032.9[facility] RkwtxhcXEVXJFILAK5728-64-76 15:22:0014.7[facility] GxyfgdzCKIEWAWDVL0143-75-87 15:22:004.73[facility] NeofjzmUXISTJNLWP8882-11-30 15:22:0014.1[facility] Surveyor MGPKNGSBSQ3095-71-23 15:22:0012.8[facility] EuboiwtPCLUXFRJFC9002-69-68 15:22:00 90.2[facility] ZukdeyfJGLGAWQGNU3256-46-89 15:22:0042.7[facility] HermannHEMATOLOGY 2017-02-24 15:22:00 Test Item Value Reference Range Interpretation Comments MCH (test code = MCH) 29.7 pg 27.0-31.0 [facility] AblzdtfLDOKKFNQSO1253-14-97 15:22:000.1[facility] HermannHEMATOLOGY 2017-02-24 15:22:008.0[facility] KfyixfpHOSRRSUVTJ3368-16-76 15:22:001.0[facility] AajjryyRMITLMPADA9891-95-61 15:22:007.6[facility] AcktulnIFQWLULKOV3132-93-39 15:22:003.4[facility] PbgtsjcOHZNRKFGEK3035-10-48 15:22:003.6[facility] Surveyor XLZQDLMIRF0493-16-06 15:22:0028.2[facility] LcklnnuRAWJVKNGFE8375-77-77 15:22:00 0.4[facility] AklmhnnNQVANCXHDY5769-13-74 15:22:001.0[facility] HermannHEMATOLOGY 2017-02-24 15:22:0059.4[facility] HermannSPECIAL WIPOTZDXX4707-10-40 15:22:008.0 [facility]
[2021-07-21 06:57] LABS: Absolute Lymphocytes (CBC) 2.3 K/uL (0.7-4.9); Basophils % 2.3 % (0-1.3); Hematocrit 32.8 % (39.6-49.0); Lymphocytes % 24.2 % (15.3-44.8); MPV 8.6 fL (7.6-11.3); RBC Red Blood Cell Count 3.43 M/uL (4.33-5.43)
[2021-07-21 07:02] LABS: Protime INR 1.11
[2021-07-21 07:49] LABS: Albumin 2.6 g/dL (3.4-5.0); Bilirubin Total 0.4 mg/dL (0.2-1.0); Potassium 3.7 mmol/L (3.5-5.1); Protein, Total 6.6 g/dL (6.4-8.2)
--- NOTE | 2021-07-21 08:46 | EDPHYS ---
Physician Documentation [facility] Name: Richard Rodriguez Age: 66 yrs Sex: Male : 1955 Arrival Date: 07/21/2021 Time: 06:15 Bed 2 Private MD: ED Physician Osman Dinero HPI: 07/21 06:37 This 66 yrs old Male presents to ER via EMS with complaints of Bleeding from fistula. pm1 06:37 The patient or guardian complains of Bleeding from fistula. The complaints affect the pm1 palmar aspect of left forearm. Context: The problem was sustained at home, resulted from unknown cause, fistula has been slightly bleeding for the past few days and when he went to the restroom this morning he noticed a lot of blood on the floor bleeding from his fistula. Treatment prior to arrival includes: direct pressure to area and belt for a tourniquet to upper arm by family members. Modifying factors: The symptoms are alleviated by pressure to area. Associated signs and symptoms: The patient has no apparent associated signs or symptoms, Pertinent negatives: chest pain, dizziness. Severity of symptoms: in the emergency department the symptoms have resolved. The patient has not recently seen a physician. Historical: - Allergies: 06:17 No Known Allergies; cc4 - Home Meds: 06:17 hydralazine 25 mg Oral tab 1 tab 2 times per day for hypertension [Active]; carvedilol cc4 3.125 mg oral tab 1 tab 2 times per day for hypertension [Active]; furosemide 40 mg Oral tab 1 tab 2 times per day for renal disease with edema [Active]; furosemide 80 mg Oral tab 1 tab 2 times per day for renal disease with edema [Active]; metolazone 2.5 mg oral tab 1 tab twice a day for hypertension [Active]; allopurinol 100 mg Oral tab 1 tab once daily for prevention of acute gout attack [Active]; Crestor 5 mg oral tab 1 tab once daily for atherosclerotic cardiovascular disease [Active]; clopidogrel 75 mg oral tab 1 tab once daily for cerebral thromboembolism prevention [Active]; aspirin 81 mg Oral tab 81 mg daily for prevention of cerebrovascular accident [Active]; Daily-Devendra oral tab daily for vitamin deficiency prevention [Active]; vitamin B12 monthly for Blood Thinner [Active]; protein four timesper week for ESRD [Active]; - PMHx: 06:17 CVA; Diabetes - IDDM; Dialysis; Gout; Hyperlipidemia; Hypertension; Myocardial cc4 infarction; Sleep Apnea; - Immunization history:: Adult Immunizations up to date, Client reports receiving the 2nd dose of the Covid vaccine. - Social history:: Smoking status: Patient/guardian denies using alcohol, street drugs, tobacco products. ROS: 06:37 Constitutional: Negative for fever, chills, and weight loss, Cardiovascular: Negative pm1 for chest pain, palpitations, and edema, Respiratory: Negative for shortness of breath, cough, wheezing, and pleuritic chest pain, MS/Extremity: Negative for injury and deformity, Skin: Negative for injury, rash, and discoloration, Neuro: Negative for headache, weakness, numbness, tingling, and seizure. 06:37 All other systems are negative. Exam: 06:37 Constitutional: This is a well developed, well nourished patient who is awake, alert, pm1 and in no acute distress. Head/Face: Normocephalic, atraumatic. 06:37 Skin: Warm, dry with normal turgor. Normal color with no rashes, no lesions, and no evidence of cellulitis. MS/ Extremity: Pulses equal, no cyanosis. Neurovascular intact. Full, normal range of motion. 06:37 Cardiovascular: Exam negative for acute changes, Rate: normal, Rhythm: regular, Pulses: no pulse deficits are appreciated, Pulses are 2+ in left radial artery. 06:37 Respiratory: Exam negative for acute changes, respiratory distress, shortness of breath. 06:37 Neuro: Exam negative for acute changes, Orientation: is normal, Mentation: is normal, Motor: moves all fours. Vital Signs: 06:06 BP 136 / 84; Pulse 88; Resp 20; Temp 97.8(O); Pulse Ox 97% on R/A; Weight 81.5 kg; cc4 Height 5 ft. 10 in. (177.80 cm); 06:06 BP 136 / 84; Pulse 88; Resp 20 S; Temp 97.8; Pulse Ox 97% on R/A; Weight 81.5 kg; cc4 Height 5 ft. 10 in. (177.80 cm); 06:06 Body Mass Index 25.78 (81.50 kg, 177.80 cm) cc4 MDM: 06:27 Patient medically screened. pm1 06:38 ED course: Bleeding resolved with measures performed by family prior to arrival. Will pm1 obtain basic labs to evaluate for anemia related to blood loss. 06:44 Data reviewed: vital signs. Data interpreted: Pulse oximetry: on room air is 97 %. pm1 Interpretation: normal. 08:43 Counseling: I had a detailed discussion with the patient and/or guardian regarding: the pm1 historical points, exam findings, and any diagnostic results supporting the discharge/admit diagnosis, the need for outpatient follow up, to return to the emergency department if symptoms worsen or persist or if there are any questions or concerns that arise at home. 07/21 06:37 Order name: CBC with Diff; Complete Time: 08:12 pm1 07/21 06:37 Order name: CMP; Complete Time: 08:12 pm1 07/21 06:37 Order name: PT-INR; Complete Time: 08:12 pm1 Administered Medications: No medications were administered Disposition Summary: 07/21/21 08:45 Discharge Ordered Location: Home pm1 Problem: new pm1 Symptoms: have improved pm1 Condition: Stable pm1 Diagnosis - Bleeding from left forearm fistula - resolved pm1 Followup: pm1 - With: Emergency Department - When: As needed - Reason: Worsening of condition Followup: pm1 - With: Private Physician - When: 2 - 3 days - Reason: Recheck today's complaints, Continuance of care, Re-evaluation by your physician Forms: - Medication Reconciliation Form pm1 - Thank You Letter pm1 - Antibiotic Education pm1 - Prescription Opioid Use pm1 Signatures: Dispatcher [employer] Arslan Fisher NP STOCK WETTER pm1 Kelly Hunter, RN RN cc4
--- NOTE | 2021-07-21 08:46 | ER ---
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 Coronavirus screen: Vaccine status: Patient reports receiving the 2nd dose of the covid vaccine. Client denies travel out of the [place] in the last 14 days. At this time, the client does not indicate any symptoms associated with coronavirus-19. The client reports previous COVID testing was negative. Date of collection: July 15, 2021. Ebola Screen: Patient negative for fever greater than or equal to 101.5 degrees Fahrenheit, and additional compatible Ebola Virus Disease symptoms No symptoms or risks identified at this time. Initial Sepsis Screen: Does the patient meet any 2 criteria? No. Patient's initial sepsis screen is negative. Does the patient have a suspected source of infection? No. Patient's initial sepsis screen is negative. Risk Assessment: Do you want to hurt yourself or someone else? Patient reports no desire to harm self or others. Onset of symptoms was July 21, 2021. 06:06 Method Of Arrival: EMS: [facility] cc4 06:06 Acuity: JERAD 3 cc4 Triage Assessment: 06:06 General: Appears in no apparent distress. comfortable, Behavior is calm, cooperative. cc4 General: See presentation.. Pain: Denies pain. Historical: - Allergies: 06:17 No Known Allergies; cc4 - Home Meds: 06:17 hydralazine 25 mg Oral tab 1 tab 2 times per day for hypertension [Active]; carvedilol cc4 3.125 mg oral tab 1 tab 2 times per day for hypertension [Active]; furosemide 40 mg Oral tab 1 tab 2 times per day for renal disease with edema [Active]; furosemide 80 mg Oral tab 1 tab 2 times per day for renal disease with edema [Active]; metolazone 2.5 mg oral tab 1 tab twice a day for hypertension [Active]; allopurinol 100 mg Oral tab 1 tab once daily for prevention of acute gout attack [Active]; Crestor 5 mg oral tab 1 tab once daily for atherosclerotic cardiovascular disease [Active]; clopidogrel 75 mg oral tab 1 tab once daily for cerebral thromboembolism prevention [Active]; aspirin 81 mg Oral tab 81 mg daily for prevention of cerebrovascular accident [Active]; Daily-Devendra oral tab daily for vitamin deficiency prevention [Active]; vitamin B12 monthly for Blood Thinner [Active]; protein four timesper week for ESRD [Active]; - PMHx: 06:17 CVA; Diabetes - IDDM; Dialysis; Gout; Hyperlipidemia; Hypertension; Myocardial cc4 infarction; Sleep Apnea; - Immunization history:: Adult Immunizations up to date, Client reports receiving the 2nd dose of the Covid vaccine. - Social history:: Smoking status: Patient/guardian denies using alcohol, street drugs, tobacco products. Screenin:06 Abuse screen: Denies threats or abuse. Nutritional screening: No deficits noted. cc4 Tuberculosis screening: No symptoms or risk factors identified. Fall Risk None identified. Assessment: 06:06 General: Appears in no apparent distress. Behavior is calm, cooperative. Pain: Denies cc4 pain. Neuro: No deficits noted. Level of Consciousness is awake, alert, obeys commands. Cardiovascular: No deficits noted. Heart tones S1 S2. Respiratory: No deficits noted. Airway is patent Respiratory effort is even, unlabored, Respiratory pattern is regular, symmetrical. GI: No signs and/or symptoms were reported involving the gastrointestinal system. : No signs and/or symptoms were reported regarding the genitourinary system. EENT: No signs and/or symptoms were reported regarding the EENT system. Derm: Kerlix dressing intact left forearm with small amount bloody drainage noted; no active bleeding noted; reports prolonged bleeding of left FA AVF Wednesday \T\ iHD. Musculoskeletal: No deficits noted. Capillary refill < 3 seconds, Range of motion: intact in all extremities. 06:30 Reassessment: Henry Erazo NP in \T\ removing Kerlix dressing left FA with no active cc4 bleeding noted of AVF; scabbed area noted of AVF; pressure dressings reapplied to left FA AVF. Vital Signs: 06:06 BP 136 / 84; Pulse 88; Resp 20; Temp 97.8(O); Pulse Ox 97% on R/A; Weight 81.5 kg; cc4 Height 5 ft. 10 in. (177.80 cm); 06:06 BP 136 / 84; Pulse 88; Resp 20 S; Temp 97.8; Pulse Ox 97% on R/A; Weight 81.5 kg; cc4 Height 5 ft. 10 in. (177.80 cm); 06:06 Body Mass Index 25.78 (81.50 kg, 177.80 cm) cc4 ED Course: 06:06 Arm band placed on. cc4 06:06 Pulse ox on. NIBP on. cc4 06:06 Patient has correct armband on for positive identification. Placed in gown. Bed in low cc4 position. Call light in reach. Side rails up X2. 06:15 Patient arrived in ED. cc4 06:17 Kelly Hunter, MARY is Primary Nurse. cc4 06:27 Arslan Erazo NP is PHCP. pm1 06:27 Osman Dinero MD is Attending Physician. pm1 06:35 Inserted saline lock: 22 gauge in right forearm, using aseptic technique. Blood ds4 collected. 06:48 Triage completed. cc4 06:56 Dressings: pressure dressing applied to fistula by RN. tw5 Administered Medications: No medications were administered Outcome: 08:45 Discharge ordered by . pm1 09:48 Patient left the ED. iw Signatures: Rula Cyr RN RN iw Brian Dela Cruz ds4 Arslan Erazo NP SCHOOL FUNDRAISING DIRECTOR pm1 Kelly Hunter RN RN cc4 Janay Ram tw5
== END 2021-07-21 09:48 | disposition home or self-care (01) ==
LOC: ER 06:08
DX: T82.838A Hemorrhage due to vascular prosthetic devices, implants and grafts, initial encounter (principal); E78.5 Hyperlipidemia, unspecified; I25.2 Old myocardial infarction; E11.22 Type 2 diabetes mellitus with diabetic chronic kidney disease; I12.0 Hypertensive chronic kidney disease with stage 5 chronic kidney disease or end stage renal disease; N18.6 End stage renal disease; Z99.2 Dependence on renal dialysis
CPT/HCPCS: 36415; 80053; 85025; 85610; 99284

== ENCOUNTER 2022-07-07 19:36 | Emergency (ER) | payer OTHER ==
--- OUTSIDE RECORDS SUMMARY | 2022-07-07 19:49 | XMS REPORT | Continuity of Care Document ---
:1955 Author Organization [facility] t Address [address] [place] [address] Care Team Providers Name Role Phone Real Olson MD Primary Care Physician STEWART [employer]NAS Attending Clinician Unavailable Rupali Bernal MD Attending Clinician Oscar HART, Yasir Sewell Attending Clinician [phone] Sammi Gonzales RN Attending Clinician Unavailable Sukhwinder Maria MD Attending Clinician Enrrique Canchola MD Attending Clinician Chas Carbajal MD Attending Clinician Jp Bustamante CRNA Attending Clinician [phone] Jose HART, Rodriguez Montes Attending Clinician MD ENRRIQUE CANCHOLA Attending Clinician Unavailable NOEL KENDALL Attending Clinician Unavailable MD YASIR MOORE Attending Clinician UnavailJosé Gordon Attending Clinician Unavailable Brenda Chavira MD Attending Clinician Jena Mcneil MD Attending Clinician BENITO MARTINEZ Attending Clinician Unavailable Sergio Garcia MD Attending Clinician Demarco HART, Fabiana Attending Clinician Deysi LACE CUTTER, Judah Andreia Attending Clinician Robert HERNANDEZ, Kirstie Attending Clinician Stewart Arenas MD Attending Clinician [phone] Kristy Khan MD Attending Clinician Hoang Reis Attending Clinician Unavailable Erin GUAJARDO, Elsa Attending Clinician Elder Reynolds Attending Clinician Derikc Khan Attending Clinician STEWART ARENAS Admitting Clinician Unavailable MD YASIR MOORE Admitting Clinician Unavailab ENRRIQUE Pham Admitting Clinician Unavailable MD ENRRIQUE CANCHOLA Admitting Clinician Unavailable MD YASIR MOORE Admitting Clinician Unavailab Real Ac Admitting Clinician Unavailable José Zimmerman Admitting Clinician Unavailable BRENDAN ZAPATA Admitting Clinician Unavailable Payers Payer Name Policy Type Policy Number Effective Date Expiration Date S ource MEDICARE A B [id number] 2020 00:00:00 [employer] INDEMNITY [id number] 2020 NON CONTR 00:00:00 Problems Condition Condition Condition Status Onset Resolution Last Treating Co mments Source Name Details Category Date Date Treatment Clinician Date Bleeding Bleeding Disease Active 2020-08 Metho di from from 09-21 dialysis dialysis 00:00: Hospit a shunt shunt 00 l Pericardia Pericardia Disease Active M ethodi l effusion l effusion 02-18 00:00: Hospita 00 l ESRD (end ESRD (end Disease Active Met hodi stage stage 02-18 renal renal 00:00: Hospita disease) disease) 00 l Pleural Pleural Disease Active Methodi effusion, effusion, 02-18 bilateral bilateral 00:00: Hosp yesi 00 l Thrombocyt Thrombocyt Disease Active 2019-[address] [facility] Essential Essential Disease Active 2019-[address] [facility] hypertensi hypertensi [facility] on on 00:00: Medical 00 Center Thrombocyt Thrombocyt Disease Active 2019-[address] [facility] 00 Center s/p ACB x2 s/p ACB x2 Disease Active 2019-[address] - - 10[facility]14 [facility] / 00 Center Difficulty Difficulty Disease Active 2016-08 M ethodi swallowing swallowing 10-19 st 00:00: Hospita 00 l Dysphagia Dysphagia Disease Active 2016-08 Met [facility]odi [facility] 00:00: Hospita 00 l N18.6 N18.6 Diagnosis Active 2016-082017-06-01 Mem oria Active 11:32:00 l 05/24/2017 00:00: Michael garza 00 [facility] Type 2 Type 2 Disease Active Methodi diabetes diabetes 05-19 st mellitus mellitus 00:00: Hospit a 00 l WOUND WOUND Diagnosis Active 2017-06-08 Mem oria INFECTION INFECTION 03-04 09:19:00 l Active 14:12: Colin 03/04/2017 00 [facility] ESRD ESRD Diagnosis Active 2017-02-26 Mem oria Active 02-12 06:06:00 l 02/12/2017 00:00: Michael garza 00 [facility] Anxiety Anxiety Problem Active 2017-06-04 Me morisal (finding) (finding) 08-23 02:00:03 l Active 00:00: Colin 08/23/2011 00 Problem 06/04/2017 OPID [facility], [facility] ESRD on ESRD on Disease Active [facility] Myocardial Myocardia Problem Resolve 2017-06-04 Memoria infarction l d 02:00:03 l (disorder) infarction He rmann (disorder) Resolved Problem 06/04/20171998 OPID [facility], [facility] 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 02:00:03 l of the of the Colin heart heart (disorder) (disorder) Active Problem 06/04/2017 OPID [facility], [facility] Cerebrovas Cerebrova Problem Active 2017-06-04 Memoria cular scular 02:00:03 l accident accident Michael n (disorder) (disorder) Active Problem 06/04/2017 [facility] Dependence Dependenc Problem Active 2017-06-04 Memoria on e on 02:00:03 l continuous continuous He rmann positive positive airway airway pressure pressure ventilatio ventilatio n n (finding) (finding) Active Problem 06/04/2017 not using at this time [facility] Diabetes Diabetes Problem Active 2017-06-04 Memoria mellitus mellitus 02:00:03 l (disorder) (disorder) He rmann Active Problem 06/04/2017 [facility] Hyperlipid Hyperlipi Problem Active 2017-06-04 Memoria emia demia 02:00:03 l (disorder) (disorder) He rmann Active Problem 06/04/2017 [facility] Hypertensi Hypertens Problem Active 2017-06-04 Memoria ve jose 02:00:03 l disorder, disorder, Herm doris systemic systemic arterial arterial (disorder) (disorder) Active Problem 06/04/2017 [facility] Obesity Obesity Problem Active 2017-06-04 M emoria (disorder) (disorder) 02:00:03 l Active Colin Problem 06/04/2017 [facility] Peripheral Periphera Problem Active 2017-06-04 Memoria vascular l vascular 02:00:03 l disease disease Colin (disorder) (disorder) Active Problem 06/04/2017 swolling [facility] Sleep Sleep Problem Active 2017-06-04 Memor ia apnea apnea 02:00:03 l (finding) (finding) Herm doris Active Problem 06/04/2017 [facility] Fracture Fracture Problem Resolve 2017-06-04 Memoria of of d 02:00:03 l shoulder shoulder Michael n (disorder) (disorder) Resolved Problem 06/04/20172012 [facility] Intracrani Intracran Problem Resolve 2017-06-04 Memoria al venous ial venous d 02:00:03 l thrombosis thrombosis He rmann (disorder) (disorder) Resolved Problem 06/04/2017 patietn had stroke [facility] History of Past Illness Condition Condition Condition Status Onset Resolution Last Treating Co mments Source Name Details Category Date Date Treatment Clinician Date Infection Problem 2016-2017-03-07 2017-03-07 Memoria following Infection 03-04 04:57:57 04:57:57 l a following 05:00: Colin procedure, a 00 initial procedure, encounter initial encounter 03/04/2017 03/07/2017 [facility] Arterioven Arteriove Problem 2017-2017-03-07 2017-03-07 Memoria ous nous 03-04 04:57:57 04:57:57 l fistula, fistula, 05:00: Michael n acquired acquired 00 03/04/2017 03/07/2017 [facility] Allergies, Adverse Reactions, Alerts Allergy Allergy Status Severity Reaction(s) Onset Inactive Treating Comm ents Source Name Type Date Date Clinician No Known DA Active [facility]ie 9-15 Clear s 00:00: [place] 00 [facility] No Known DA Active [facility] Allergie 9-15 Clear s 00:00: [place] 00 [facility] No Known DA Active [facility] Allergie 8-02 Clear s 00:00: [place] 00 [facility] No Known DA Active [facility] Allergie 8-02 Clear s 00:00: [place] 00 [facility] NO KNOWN Allergy Active [facility] Family History Family Member Diagnosis Comments Start Date Stop Date Source Natural mother Diabetes [facility] Natural [facility] Hy[facility] Social History Social Habit Start Date Stop Date Quantity Comments Source History SDOH [facility] Alcohol Std Drinks Medica l Center History SDOH [facility] Alcohol Binge Medical [place] [facility] History SDOH [facility] Alcohol Comment Medical C enter History of tobacco Chews Tobacco Met hodist use Hospital Exposure to Not sure [facility] SARS-CoV-2 (event) Hospit al Alcohol intake 2021-07-29 2021-07-29 Current Islam 00:00:00 00:00:00 non-drinker of Hospital alcohol (finding) Tobacco use and 2020-08-08 2020-08-[address] [facility] [facility] exposure 00:00:00 00:00:00 Medical Center History SDOH 2020-08-08 2020-08-[address] [facility] Alcohol Frequency 00:00:00 00:00:00 Medical Center Social History 2017-05-31 2017-05-31 [facility] aleida 21:00:35 21:00:35 Cigarettes smoked 2017-05-19 2017-05-[address] current (pack per 00:00:00 00:00:00 Hospita l day) - Reported Cigarette 2017-05-19 2017-05-19 [facility] pack-years 00:00:00 00:00:00 Hospital Sex [birth year] [facility] 00:00:00 00:00:00 Hospital Smoking Status Start Date Stop Date Source Ex-smoker 2017-05-19 00:00:00 2017-05-19 00:00:00 [facility] Medications Ordered Filled Start Stop Current Ordering Indication Dosage Frequency Signature Comments Components Source Medication Medication Date Date Medication? Clinician (SIG) Name Name hydrALAZINE Yes 50mg Q.5D Take 50 mg Methodi (APRESOLINE 4-[address] ) 50 MG 14:08: (two) Hospita tablet 08 times a l day. metOLazone Yes 2.5mg Q.5D Take 2.5 Me thodi (ZAROXOLYN) 4-[address] 2.5 MG 14:08: mouth 2 Hospita tablet 08 (two) l times a day. clopidogreL Yes 75mg QD Take 75 mg Methodi (PLAVIX) 75 4-[address] mg tablet 14:08: daily. Hospit a 08 l amLODIPine 2020-08- No 5mg Take 1 Meth ramana (NORVASC) 5 09-30-08 tablet (5 st mg tablet 00:00: 05:59 mg total) Ho spita 00 :00 by mouth l Every Wednesday, Wednesday, and Wednesday for 30 days. multivitami 2020-08 Yes 1{capsu QD Take 1 M ethodi n capsule 09-29 le} capsule by st 19:05: mouth Hospita 09 daily. l aspirin 2020-08 Yes 81mg QD Take 81 mg Meth ramana (ECOTRIN) -[address] 81 MG 19:05: daily. Hospita enteric 09 l coated tablet apixaban 2020-08 Yes Q.5D Take by Method i (ELIQUIS) 2-[address] 2.5 mg 19:05: (two) Hospita tablet 09 times a l day. Patient is not sure of the dose. Last taken today 05/13/21 AM - per patient carvediloL 2020-08 No 12.5mg Q.5D Take 1 Me thodi (COREG) 2-07 - tablet st 12.5 MG 00:00: 05:59 (12.5 mg Hospi ta tablet 00 :00 total) by l mouth 2 (two) times a day for 30 days. cyanocobala 2020-08 Yes [id number] INJECT 1 Methodi min 1,000 0-[address] mcg/mL 00:00: INTO Hospita injection 00 SHOULDER, l THIGH, OR BUTTOCKS ONCE EVERY 30 DAYS multivitami Yes 1{capsu QD Take 1 M ethodi n capsule 16 le} capsule by st 15:22: mouth Hospita 05 daily. l aspirin Yes 81mg QD Take 81 mg Meth ramana (ECOTRIN) -[address] 81 MG 15:22: daily. Hospita enteric 05 l coated tablet pantoprazol 2020- No 40mg Q.5D Take 1 Met hodi e 02-21- tablet (40 st (PROTONIX) 00:00: 04:59 mg total) H ospita 40 MG EC 00 :00 by mouth 2 l tablet (two) times a day for 30 days. amLODIPine 2020- No 5mg QD Take 1 Meth ramana (NORVASC) 5 02-17- tablet (5 st mg tablet 00:00: 04:59 mg total) Ho spita 00 :00 by mouth l daily for 30 days. lisinopriL 2020- No 40mg QD Take 1 Meth ramana (PRINIVIL) 02-17- tablet (40 st 40 mg 00:00: 00:00 mg total) Hospit a tablet 00 :00 by mouth l daily for 30 days. pantoprazol 2020- No 40mg QD Take 1 Met hodi e 02-17- tablet (40 st (Protonix) 00:00: 00:00 mg total) H ospita 40 MG EC 00 :00 by mouth l tablet daily for 30 days. carvediloL Yes 12.5mg Take 12.[address] (COREG) 25 1-12 mg by Lukes MG tablet 11:09: mouth 2 Medic al 42 (two) Center times daily with breakfast and dinner . allopurinoL 0 Yes 100mg QD Take [address] (ZYLOPRIM) 1-12 mg by [facility]ukes 100 MG 11:09: mouth Medical tablet 42 daily. [place] [facility] aspirin 81 0 Yes 81mg QD Take [address] MG EC 1-12 by mouth [facility]ukes tablet 11:09: daily. [address] multivitami Yes 1{capsu QD Take [address] n capsule 1-12 le} capsule by Luke s 11:09: mouth Medical 42 daily. [place] [facility] cyanocobala Yes 1000ug Inject [facility] min 1-12 1,000 mcg [facility] (VITAMIN 11:09: intramuscu Med ical B-12) 1,000 42 larly Center mcg/mL every 30 injection (thirty) days. apixaban Yes 2.5mg Q.5D Take 2.[address] (ELIQUIS) 1-12 mg by [facility]ukes 2.5 mg Tab 11:09: mouth 2 Medi amberly tablet 42 (two) Center times daily. carvediloL Yes 12.5mg Take 12.[address] (COREG) 25 1-12 mg by Lukes MG tablet 11:09: mouth 2 Medic al 42 (two) Center times daily with breakfast and dinner . allopurinoL 0 Yes 100mg QD Take [address] (ZYLOPRIM) 1-12 mg by [facility]ukes 100 MG 11:09: mouth Medical tablet 42 daily. [place] [facility] aspirin 81 0 Yes 81mg QD Take [address] MG EC 1-12 by mouth [facility]ukes tablet 11:09: daily. [address] multivitami Yes 1{capsu QD Take [address] n capsule 1-12 le} capsule by Luke s 11:09: mouth Medical 42 daily. [place] [facility] cyanocobala Yes 1000ug Inject [facility] min 1-12 1,000 mcg [facility]ukes (VITAMIN 11:09: intramuscu Med ical B-12) 1,000 42 larly Center mcg/mL every 30 injection (thirty) days. apixaban 0 Yes 2.5mg Q.5D Take 2.[address] (ELIQUIS) 1-12 mg by [facility]ukes 2.5 mg Tab 11:09: mouth 2 Medi amberly tablet 42 (two) Center times daily. ferrous 2019-08- No 325mg Take [address] sulfate 325 2-31 12-31 tablet [facility] (65 FE) MG 00:00: 23:59 (325 mg Med ical tablet 00 :00 total) by Center mouth every other day. ferrous 2019-08- No 325mg Take [address] sulfate 325 2-31 12-31 tablet [facility] (65 FE) MG 00:00: 23:59 (325 mg Med ical tablet 00 :00 total) by Center mouth every other day. losartan 2019-08- No 100mg Take 100 Met hodi (COZAAR) 2-30 12-[address] 100 MG 00:00: 05:59 mouth. Hospita tablet 00 :00 l losartan 2019-08- No 100mg Take 100 Met hodi (COZAAR) 2-30 12-[address] 100 MG 00:00: 05:59 mouth. Hospita tablet 00 :00 l rosuvastati 2019-08- No 20mg QD Take [address] n (CRESTOR) 2-30 12-30 tablet (20 L ukes 20 MG 00:00: 23:59 mg total) Medica l tablet 00 :00 by mouth Center daily. losartan 2019-08- No 100mg QD Take 1 [facility] t (COZAAR) 2-30 12-30 tablet [facility] 100 MG 00:00: 23:59 (100 mg Medical tablet 00 :00 total) by Center mouth daily. rosuvastati 2019-08- No 20mg QD Take [address] n (CRESTOR) 2-30 12-30 tablet (20 L ukes 20 MG 00:00: 23:59 mg total) Medica l tablet 00 :00 by mouth Center daily. losartan 2019-08- No 100mg QD Take 1 [facility] t (COZAAR) 2-30 12-30 tablet [facility] 100 MG 00:00: 23:59 (100 mg Medical tablet 00 :00 total) by Center mouth daily. hydrALAZINE 2019-08- No 100mg Q.5D Take [address] (APRESOLINE 2-29 12-29 mg by [facility] ) 100 MG 09:27: 00:00 mouth 2 Medic al tablet 10 :00 (two) Center times daily. rosuvastati 2019-08- No 5mg QD Take [address] n (CRESTOR) 2-20 08- by mouth [place] es 5 MG tablet 09:27: 00:00 daily. Med ical 10 :00 Center furosemide 2019-08- No 80mg Q.5D Take [address] (LASIX) 80 - 12-29 by mouth 2 Sweta [facility] MG tablet 09:27: 00:00 (two) Medica l 10 :00 times Center daily. folic 2019-08 Yes 1{tbl} QD Take [address] acid-multiv 2-29 tablet by [place] es itamins 00:00: mouth Medical (NEPHRO-VIT 00 daily. Center E) 0.8 mg Tab tablet folic 2019-08 Yes 1{tbl} QD Take [address] acid-multiv 2-29 tablet by [place] es itamins 00:00: mouth Medical (NEPHRO-VIT 00 daily. Center E) 0.8 mg Tab tablet hydrALAZINE 2019-08- No 100mg Take [address] (APRESOLINE 2-29 12-29 tablet [facility] ) 100 MG 00:00: 23:59 (100 mg Medic al tablet 00 :00 total) by Center mouth every 8 (eight) hours. hydrALAZINE 2019-08 No 100mg Take [address] (APRESOLINE 2-29 12-29 tablet [facility] ) 100 MG 00:00: 23:59 (100 mg Medic al tablet 00 :00 total) by Center mouth every 8 (eight) hours. syringe 2019-08 Yes [id number] As Metho di with needle 1-[address] 3 mL 25 x 00:00: Hospita 58" 00 l syringe cyanocobala 2019-08 Yes [id number] INJECT 1 Methodi min 1,000 1-[address] mcg/mL 00:00: INTO Hospita injection 00 SHOULDER, l THIGH, OR BUTTOCKS ONCE EVERY 30 DAYS syringe 2019-08 Yes [id number] As Metho di with needle 1-[address] 3 mL 25 x 00:00: Hospita 58" 00 l syringe cyanocobala 2019-08- No [id number] INJECT 1 Methodi min 1,000 1-04 11-[address] mcg/mL 00:00: 00:00 INTO Hospita injection 00 :00 SHOULDER, l THIGH, OR BUTTOCKS ONCE EVERY 30 DAYS cyanocobala 2019- No [id number] INJECT 1 Methodi min 1,000 04-[address] mcg/mL 00:00: 00:00 INTO Hospita injection 00 :00 SHOULDER, l THIGH, OR BUTTOCKS ONCE EVERY 30 DAYS omeprazole 2020- No [id number] TAKE 1 Methodi (PriLOSEC) 10-[address] 40 MG 00:00: 00:00 MOUTH Hospita capsule 00 :00 EVERY DAY l syringe 2019- No [id number] As Meth ramana with needle 02-[address] 3 mL 25 x 00:00: 00:00 Hospita 5/8" 00 :00 l syringe heparin 2016-08 No 5,000 Memoria 0-10 unit, l 21:00: Route: Colin 00 SUB-Q, Q8H, Dosing Weight 123.182, kg, Start date: 06/01/17 16:00:00 CDT, Duration: 30 day, Stop date: 07/01/17 8:00:00 [employer] heparin 2016-08 No 5,000 Memoria 0-10 unit, l 21:00: Route: SUB-Q, Q8H, Dosing Weight 123.182, kg, Start date: 06/01/17 16:00:00 CDT, Duration: 30 day, Stop date: 07/01/17 8:00:00 [employer] Ofirmev 2016-08 No 1,000 mg, Memor ia 0-10 Route: IV, l 19:37: ONCE, Dosing Weight 123.182, kg, Start date: 06/01/17 14:37:00 CDT, Stop date: 06/01/17 14:37:00 CDT Ofirmev 2016-08 No 1,000 mg, Memor ia 0-10 Route: IV, l 19:37: ONCE, Dosing Weight 123.182, kg, Start date: 06/01/17 14:37:00 CDT, Stop date: 06/01/17 14:37:00 CDT Insulin 2017- No Notes: Memoria Lispro 0-10 Roll in [...] Memoria 0-10 (Same as: l 19:07: Sublimaze) Preservati ve free. Hydromorpho 2016-08 No 0.5 mg, Mem [...] mine 0-10 (Same as: l 19:07: Benadryl) Colin 00 Hydralazine 2016-08 No Notes: Dayron boubacar 0-10 (Same as: l 19:07: Apresoline [place] 00 ) Push over 5 minutes Metoprolol [...] Memoria 0-10 (Same as: l 19:07: Sublimaze) Preservati ve free. Hydromorpho 2016-08 No 0.5 mg, Mem [...] not exceed l #3 18:58: 4gm/day of [place] acetaminop hen. (Same as: Tylenol with Codeine # 3) Acetaminoph 2016-08 No Notes: Do M emoria en 0-10 not exceed l 18:58: 4 gm/day. [place] 00 (Same as: Tylenol) Zofran 2016-08 No [...] Benadryl) Ceftriaxone No 1 gm, Memor ia 7-13 Route: l 21:11: IVPB, Drug [place] 00 form: PDR/INJ, ONCE, Dosing Weight 123.636, kg, Priority: STAT, Start date: 03/04/17 16:11:00 CDT, Duration: 1 doses or times, Stop date: 03/04/17 16:11:00 CDT, ABX Indication : Skin/Soft Tissue Infection Vancomycin No 2001 mg: Me moria 7-13 infuse l 21:11: over 2.5 Colin 00 hours MEDICATION WASTE Product Size: 1000 mg Product Wasted: ___ mg Ceftriaxone No 1 gm, Memor ia 7- Route: l 21:11: IVPB, Drug Colin form: PDR/INJ, ONCE, Dosing Weight 123.636, kg, Priority: STAT, Start date: 03/04/17 16:11:00 CDT, Duration: 1 doses or times, Stop date: 03/04/17 16:11:00 CDT, ABX Indication : Skin/Soft Tissue Infection Vancomycin No 2000 mg: Me moria 7-13 infuse l 21:11: over 2.5 [place] 00 hours MEDICATION WASTE Product Size: 1000 mg Product Wasted: ___ mg Cephalexin Yes 500 mg = 1 M emoria 500 MG Oral 7-13 cap, PO, l Capsule 21:00: BID, X 10 Anel nn [Keflex] 00 day, # 20 cap, 0 Refill(s) Cephalexin Yes 500 mg = 1 M emoria 500 MG Oral 7-13 cap, PO, l Capsule 21:00: BID, X 10 Anel nn [Keflex] day, # 20 cap, 0 Refill(s) doxycycline Yes 100 mg = 1 Memoria hyclate 100 7-13 tab, PO, l MG Oral 20:59: Q12H, X 10 Herm doris Tablet 00 day, # 20 tab, 0 Refill(s) doxycycline 20170 Yes 100 mg = 1 Memoria hyclate 100 7-13 tab, PO, l MG Oral 20:59: Q12H, X 10 Herm doris Tablet 00 day, # 20 tab, 0 Refill(s) heparin No Notes: Memoria 7-07 porcine l 21:00: heparin [place] 00 heparin No Notes: Memoria 7-07 porcine l 21:00: heparin Metoclopram No Notes: Dayron boubacar marie 7-07 (Same as: l 16:26: Reglan) Colin 00 Flumazenil No Notes: Memor ia 7-07 (Same as: l 16:26: Romazicon) Naloxone No Notes: Memoria 7-07 Same as l 16:26: Narcan Fentanyl No Notes: Memoria 7-07 (Same as: l 16:26: Sublimaze) [place] 00 Preservati ve free. Ondansetron No 4 mg, Memor ia 7-07 Route: l 16:26: IVP, ONCE, Colin 00 Dosing Weight 124.091, kg, PRN Nausea & Vomiting, Start date: 02/26/17 11:26:00 CDT Labetalol No Notes: Memori a 7-07 (Same as: l 16:26: Normodyne, [place] 00 Trandate) Push over 2 minutes Give bolus over 2-3 minutes. Hydralazine No Notes: Dayron boubacar 7-07 (Same as: l 16:26: Apresoline ) Push over 5 minutes Metoclopram No Notes: Dayron boubacar marie 7-07 (Same as: l 16:26: Reglan) Flumazenil No Notes: Memor ia 7-07 (Same as: l 16:26: Romazicon) Colin 00 Naloxone No Notes: Memoria 7-07 Same as l 16:26: Narcan [place] 00 Fentanyl No Notes: Memoria 7-07 (Same as: l 16:26: Sublimaze) [place] 00 Preservati ve free. Ondansetron No 4 mg, Memor ia 7-07 Route: l 16:26: IVP, ONCE, [place] Dosing Weight 124.091, kg, PRN Nausea & Vomiting, Start date: 02/26/17 11:26:00 CDT Labetalol No Notes: Memori a 7-07 (Same as: l 16:26: Normodyne, [place] 00 Trandate) Push over 2 minutes Give [...] ONCE, Stop date: 02/26/17 10:10:00 CDT protamine 2016-0 No Route: IV, Me moria (ANES) 02-26 Drug form: l 15:10: INJ, ONCE, [place] Stop date: 02/26/17 10:10:00 CDT heparin 2016-0 No Route: IV, Dayron boubacar (ANES) 02-26 Drug form: l 15:06: INJ, ONCE, Colin 00 Stop date: 02/26/17 10:06:00 CDT heparin 2016-0 No Route: IV, Dayron boubacar (ANES) 02-26 Drug form: l 15:06: INJ, ONCE, [place] 00 Stop date: 02/26/17 10:06:00 CDT propofol 2017-0 No Route: IV, Mem oria (ANES) 02-26 Drug form: l 14:41: INJ, ONCE, [place] Stop date: 02/26/17 9:41:00 CDT propofol 2017-0 No Route: IV, Mem oria (ANES) 02-26 Drug form: l 14:41: INJ, ONCE, Colin 00 Stop date: 02/26/17 9:41:00 CDT fentaNYL 2016-0 No Route: IV, Mem oria (ANES) 02-26 Drug form: l 14:31: INJ, ONCE, [place] Stop date: 02/26/17 9:31:00 CDT fentaNYL 2017-0 No Route: IV, Mem oria (ANES) 02-26 Drug form: l 14:31: INJ, ONCE, [place] Stop date: 02/26/17 9:31:00 CDT midazolam 2017-0 No Route: IV, Me moria (ANES) 02-26 Drug form: l 14:26: SOLN, [place] 00 ONCE, Stop date: 02/26/17 9:26:00 CDT midazolam 2017-0 No Route: IV, Me moria (ANES) 02-26 Drug form: l 14:26: SOLN, Colin 00 ONCE, Stop date: 02/26/17 9:26:00 CDT vancomycin 2017-0 No Route: IV, M emoria (ANES) 02-26 Drug form: l (ANES) 14:09: INJ, Start Anel nn 00 date: 02/26/17 9:09:00 CDT, Stop date: 02/26/17 10:09:00 CDT vancomycin No Route: IV, Nelson emoria (ANES) 02-26 Drug form: l (ANES) 14:09: INJ, Start Anel nn 00 date: 02/26/17 9:09:00 CDT, Stop date: 02/26/17 10:09:00 CDT sodium No Route: IV, Memor ia chloride 7-07 Total l 0.9% 500 ml 13:49: Volume: Her martínez INJ (ANES) 00 500, Start date: 02/26/17 8:49:00 CDT, Stop date: 02/26/17 9:49:00 CDT sodium No Route: IV, Memor ia chloride 7-07 Total l 0.9% 500 ml 13:49: Volume: Her martínez INJ (ANES) 00 500, Start date: 02/26/17 8:49:00 CDT, Stop date: 02/26/17 9:49:00 CDT Cefazolin No Notes: Memori a 02-26 Same as: l 12:00: Ancef Colin 00 Cefazolin No Notes: Memori a 02-26 Same as: l 12:00: Ancef [place] 00 insulin Yes 15 UNITS, Memor ia detemir 100 7-05 SUB-Q, l UNT/ML 14:25: BID, am [place] Injectable 00 AND pm Solution MEALS [Levemir] insulin Yes 15 UNITS, Memor ia detemir 100 7-05 SUB-Q, l UNT/ML 14:25: BID, am Colin Injectable 00 AND pm Solution MEALS [Levemir] Probiotic Yes 1 cap, PO, Me moria Formula 7-05 Daily, l 14:24: PROBIOTIC Colin 00 PEARLS COMPLETE( DIGESTIVE hEALTH) Probiotic Yes 1 cap, PO, Me moria Formula 7-05 Daily, l 14:24: PROBIOTIC Colin 00 PEARLS COMPLETE( DIGESTIVE hEALTH) Multiple Yes 1 tab, PO, Mem oria Vitamins 7-05 Daily, l oral tablet 14:22: SPECTRAVIT 00 E ( ULTRA MEN 50 PLUS) Multiple Yes 1 tab, PO, Mem oria Vitamins 7-05 Daily, l oral tablet 14:22: SPECTRAVIT E ( ULTRA MEN 50 PLUS) Calcium 2017- Yes 250 mg, Memoria Carbonate 7-05 PO, BID l 14:21: Calcium 2017-0 Yes 250 mg, Memoria Carbonate 7-05 PO, BID l 14:21: ferrous Yes 325 mg = 1 Dayron boubacar sulfate 325 7-05 tab, PO, l mg oral 14:20: TID [place] enteric 00 coated tablet ferrous Yes 325 mg = 1 Dayron boubacar sulfate 325 7-05 tab, PO, l mg oral 14:20: TID Colin enteric 00 coated tablet calcitriol Yes 0.25 Memoria 0.25 mcg 7-05 microgram l oral 14:18: = 1 cap, [place] capsule 00 PO, Every Other Day calcitriol Yes 0.25 Memoria 0.25 mcg 7-05 microgram l oral 14:18: = 1 cap, [place] capsule 00 PO, Every Other Day rosuvastati 2016- Yes 5 mg = 1 Me moria n 5 mg oral 7-05 tab, PO, l tablet 14:17: Daily rosuvastati 2017-0 Yes 5 mg = 1 Me moria n 5 mg oral 7-05 tab, PO, l tablet 14:17: Daily allopurinol 2017-0 Yes 50 mg, PO, Memoria 100 mg oral 7-05 Daily l tablet 14:16: allopurinol 2017-0 Yes 50 mg, PO, Memoria 100 mg oral 7-05 Daily l tablet 14:16: Hydralazine 2017-0 Yes 50 mg = 1 M emoria Hydrochlori 7-05 tab, PO, l de 50 MG 14:15: TID Colin Oral Tablet Hydralazine 2017-0 Yes 50 mg = 1 M emoria Hydrochlori 7-05 tab, PO, l de 50 MG 14:15: TID Colin Oral Tablet carvedilol Yes 6.25 mg = Me moria 6.25 mg 7-05 1 tab, PO, l oral tablet 14:14: BID Michael n carvedilol Yes 6.25 mg = Me moria 6.25 mg 7-05 1 tab, PO, l oral tablet 14:14: BID Michael n gabapentin Yes 200 mg = 2 M emoria 100 MG Oral 7-05 cap, PO, l Capsule 14:12: AFTER [place] 00 DIALYSIS gabapentin 2017 Yes 200 mg = 2 M emoria 100 MG Oral 7-05 cap, PO, l Capsule 14:12: AFTER DIALYSIS sevelamer Yes 800 mg = 1 Me moria carbonate 7-05 tab, PO, l 800 MG Oral 14:11: TID-Meals H ermann Tablet [Renvela] Sodium Yes 650 mg = 1 Memor ia Bicarbonate 7-05 tab, PO, l 650 MG Oral 14:11: TID Michael n Tablet sevelamer Yes 800 mg = 1 Me moria carbonate 7-05 tab, PO, l 800 MG Oral 14:11: TID-Meals H ermann Tablet [Renvela] Sodium Yes 650 mg = 1 Memor ia Bicarbonate 7-05 tab, PO, l 650 MG Oral 14:11: TID Michael n Tablet Furosemide Yes 40 mg = 1 Me moria 40 MG Oral 7-05 tab, PO, l Tablet 14:10: Bedtime [place] 00 Furosemide Yes 40 mg = 1 Me moria 40 MG Oral 7-05 tab, PO, l Tablet 14:10: Bedtime [place] 00 Furosemide Yes 80 mg = 2 Me moria 40 MG Oral 7-05 tab, PO, l Tablet 14:07: QAM Furosemide Yes 80 mg = 2 Me moria 40 MG Oral 7-05 tab, PO, l Tablet 14:07: QAM apixaban Yes 2.5 mg = 1 Mem oria 2.5 MG Oral 7-05 tab, PO, l Tablet 14:04: BID Colin [Eliquis] apixaban Yes 2.5 mg = 1 Mem oria 2.5 MG Oral 7-05 tab, PO, l Tablet 14:04: BID [place] [Eliquis] furosemide Yes TWICE Method i (LASIX) 40 7-[address] mg tablet 00:00: 9am & 5pm Hos finesse 00 l furosemide Yes TWICE Method i (LASIX) 40 7-[address] mg tablet 00:00: 9am & 5pm Hos finesse 00 l rosuvastati Yes 5mg QD Take 5 mg M ethodi n (CRESTOR) 2-[address] 5 MG tablet 00:00: once Hospit a 00 daily. l rosuvastati Yes 5mg QD Take 5 mg M ethodi n (CRESTOR) 2-[address] 5 MG tablet 00:00: once Hospit a 00 daily. l carvediloL Yes 12.5mg Q.5D 12.5 mg 2 Methodi (COREG) 2-22 (two) st 12.5 MG 00:00: times a Hospita tablet 00 day with l meals. carvediloL 2020- No 3.125mg Q.5D Take 3.125 Methodi (COREG) 2-22 12-[address] 12.5 MG 00:00: 00:00 mouth 2 Hospit a tablet 00 :00 (two) l times a day with meals. calcitriol Yes .25ug Q2D Take 0.25 M ethodi (ROCALTROL) 2-[address] 0.25 MCG 00:00: mouth Hospita capsule 00 every l other day. calcitriol Yes .25ug Q2D Take 0.25 M [...] 500 mg day. calcium (1,250 mg) tablet calcium Yes 1{tbl} Q.5D Take 1 Method i carbonate 2-[address] oyster 00:00: mouth 2 Hospita shell 00 (two) l (OS-AMBERLY) times a 500 mg day. calcium (1,250 mg) tablet RENVELA 800 2020- No TAKE 2 Met hodi mg tablet 09-[address] 00:00: 00:00 MOUTH WITH Hospit a 00 :00 EACH MEAL l allopurinol 2015-08 Yes 100mg QD Take 100 M ethodi (ZYLOPRIM) 2-[address] 100 MG 00:00: mouth once Hospi ta tablet 00 daily. l allopurinol 2015-08 Yes 100mg QD Take 100 M ethodi (ZYLOPRIM) 2-[address] 100 MG 00:00: mouth once Hospi ta tablet 00 daily. l Immunizations Ordered Immunization Filled Immunization Date Status Commen ts Source Name Name Influenza (IM) 2016-10-27 Completed [facility] 00:00:00 Hospita l Influenza (IM) 2016-10-27 Completed [facility] Preservative Free 00:00:00 Hospita l Vital Signs [...] WEIGHT 2020-08-08 10:58:00 103.556 kg Systolic blood 2021-11-21 19:25:00 184 mm[Hg] Method ist Hospital pressure Diastolic blood 2021-11-21 19:25:00 86 mm[facility]Hg[facility] pressure Heart rate 2021-11-21 19:25:00 68 /min [facility] Respiratory rate 2021-11-21 19:25:00 18 /min [facility] Oxygen saturation in 2021-11-21 19:25:00 98 /min [facility] Arterial blood by Pulse oximetry Body temperature 2021-07-30 00:11:00 36.44 Katya [facility] Body weight 2021-07-29 11:19:36 81.647 kg [facility] BMI 2021-07-29 11:19:36 25.83 kg/m2 [facility] Body height 2021-07-28 15:30:00 177.8 cm [facility] Systolic blood 2021-03-07 15:14:00 122 mm[Hg] Method [facility] pressure Diastolic blood 2021-03-07 15:14:00 84 mm[Hg] [facility] pressure Heart rate 2021-03-07 15:14:00 68 /min [facility] Body height 2021-03-07 15:14:00 177.8 cm [facility] Body weight 2021-03-07 15:14:00 86.183 kg . [facility] BMI 2021-03-07 15:14:00 27.26 kg/m2 [facility] Oxygen saturation in 2021-03-07 15:14:00 95 /min [facility] Arterial blood by Pulse oximetry Respiratory rate 2021-02-21 13:37:05 17 /min [facility] Body temperature 2021-02-21 08:10:28 36 Katya [facility] Systolic blood 2020-09-03 11:20:00 159 mm[Hg] [facility] Diastolic blood 2020-09-03 11:20:00 77 mm[Hg] [facility] Heart rate 2020-09-03 11:20:00 70 /min [facility] Body temperature 2020-09-03 10:43:00 36.39 Katya [facility] Respiratory rate 2020-09-03 10:43:00 18 /min [facility] Body height 2020-09-03 10:43:00 177.8 cm [facility] Body weight 2020-09-03 10:43:00 94.802 kg [facility] BMI 2020-09-03 10:43:00 29.99 kg/m2 [facility] Oxygen saturation in 2020-09-03 10:43:00 96 /min room air [facility] Arterial blood by Medical Ce nter Pulse oximetry Systolic (mm Hg) 2017-06-01 20:15:00 Dayron rial Colin Diastolic (mm Hg) 2017-06-01 20:15:00 Mem orial [place] Respitory Rate 2017-06-01 20:15:00 Memori al Colin Systolic (mm Hg) 2017-06-01 20:00:00 Dayron rial [place] Diastolic (mm Hg) 2017-06-01 20:00:00 Mem orial [place] Respitory Rate 2017-06-01 20:00:00 Memori al Colin Systolic (mm Hg) 2017-06-01 19:45:00 Dayron rial Colin Diastolic (mm Hg) 2017-06-01 19:45:00 Mem orial [place] Respitory Rate 2017-06-01 19:45:00 Memori al Colin Temperature Oral (F) 2017-06-01 16:00:00 98.5 F [facility] BMI Calculated 2017-05-31 20:47:00 Memori al Colin Height 2017-05-31 20:47:00 177.8 cm [facility] Weight 2017-05-31 20:47:00 [facility] Systolic (mm Hg) 2017-03-04 22:53:00 Dayron rial Colin Diastolic (mm Hg) 2017-03-04 22:53:00 Mem orial [place] Temperature Oral (F) 2017-03-04 22:53:00 97.9 F [facility] Respitory Rate 2017-03-04 22:53:00 Memori al Colin Heart Rate 2017-03-04 22:53:00 [facility] Respitory Rate 2017-03-04 20:46:00 Memori al [place] Heart Rate 2017-03-04 20:46:00 [facility] Systolic (mm Hg) 2017-03-04 20:46:00 Dayron rial [place] Diastolic (mm Hg) 2017-03-04 20:46:00 Mem orial [place] BMI Calculated 2017-03-04 19:30:00 Memori al Colin Height 2017-03-04 19:30:00 170.18 cm [facility] Weight 2017-03-04 19:30:00 [facility] Respitory Rate 2017-03-04 19:30:00 Memori al [place] Heart Rate 2017-03-04 19:30:00 [facility] Temperature Oral (F) 2017-03-04 19:30:00 99 F [facility] Systolic (mm Hg) 2017-03-04 19:30:00 Dayron rial [place] Diastolic (mm Hg) 2017-03-04 19:30:00 Mem orial Colin Respitory Rate 2017-02-26 17:00:00 Memori al [facility] Systolic (mm Hg) 2017-02-26 17:00:00 Dayron rial Colin Diastolic (mm Hg) 2017-02-26 17:00:00 Mem orial [place] Respitory Rate 2017-02-26 16:45:00 Memori al Colin Systolic (mm Hg) 2017-02-26 16:45:00 Dayron rial [place] Diastolic (mm Hg) 2017-02-26 16:45:00 Mem orial [place] Respitory Rate 2017-02-26 16:30:00 Memori al Colin Systolic (mm Hg) 2017-02-26 16:30:00 Dayron rial Colin Diastolic (mm Hg) 2017-02-26 16:30:00 Mem orial Colin Temperature Oral (F) 2017-02-26 11:45:00 97.9 F [facility] Heart Rate 2017-02-24 13:43:00 [facility] Temperature Oral (F) 2017-02-24 13:43:00 99.2 F Noemi Shaw Weight 2017-02-24 13:27:00 [facility] BMI Calculated 2017-02-24 13:27:00 Jie Dumont Height 2017-02-24 13:27:00 177.8 cm [facility] Procedures Procedure Date / Time Performing Source Performed Clinician XR CHEST 1 VW PORTABLE 2021-11-21 Rupali Bernal Islam 19:29:15 [facility] US THORACENTESIS WITH IMAGING 2021-11-21 Yasir Moore Me thodist 19:28:39 [facility] BASIC METABOLIC PANEL 2021-11-19 Yasir Moore Islam 14:38:00 [facility] HC COMPLETE BLD COUNT W/AUTO DIFF 2021-11-19 Malena Moore i Islam 14:38:00 [facility] PARTIAL THROMBOPLASTIN TIME (PTT) 2021-11-19 BhavikMalena i Islam 14:38:00 [facility] PROTHROMBIN TIME WITH INR 2021-11-19 Yasir Moore Method ist 14:38:00 [facility] ESTIMATED GFR 2021-11-19 Yasir Moore Islam 14:38:00 [facility] COVID-19 QUALITATIVE RT-PCR 2021-11-19 Yasir Moore Meth odist 14:38:00 [facility] ECHOCARDIOGRAM TRANSESOPHAGEAL W 2021-07-29 Karen Daniel Islam DOPPLER COLORFLOW 18:00:00 Hospital HEMODIALYSIS 2021-07-29 Jena Mcneil Islam 14:01:18 Hospital HC COMPLETE BLD COUNT W/AUTO DIFF 2021-07-29 Lexii Wolf Islam 12:31:00 Hospital COMPREHENSIVE METABOLIC PANEL 2021-07-29 Lexii Wolf Me thodist 12:31:00 Hospital PROTHROMBIN TIME WITH INR 2021-07-29 Brenda Chavira Method ist 12:31:00 Hospital TYPE AND SCREEN 2021-07-29 Brenda Chavira Islam 12:31:00 Hospital ESTIMATED GFR 2021-07-29 Lexii Wolf Islam 12:31:00 [facility] US THORACENTESIS WITH IMAGING 2021-07-28 Yasir Moore Ar thodist 16:26:30 [facility] XR CHEST 1 VW PORTABLE 2021-07-28 Chalo Young Islam 16:12:23 [facility] BLOOD CULTURE, AEROBIC & ANAEROBIC 2021-07-28 Oscar Aniya griffiths Islam 16:00:00 [facility] BASIC METABOLIC PANEL 2021-07-28 Jena Mcneil Islam 11:47:00 Hospital CBC WITH PLATELET AND DIFFERENTIAL 2021-07-28 Rio Mcneil Islam 11:47:00 Hospital ESTIMATED GFR 2021-07-28 Jena Mcneil Islam 11:47:00 Hospital HEMODIALYSIS 2021-07-26 Adelia Hernandez Islam 06:06:04 Hospital TTE LIMITED, WO CONTRAST, W 2021-07-25 Adelia Hernandez Met hodist DOPPLER ([id number]) 22:30:00 Hospital US THORACENTESIS WITH IMAGING [facility]25 [facility] 19:38:35 [facility] XR CHEST 1 VW PORTABLE 2021-07-25 Gigi Sood Method ist 19:33:34 [facility] COMPREHENSIVE METABOLIC PANEL 2021-07-25 Rodriguez Garcia ethodist 11:38:00 [facility] CBC WITH PLATELET AND DIFFERENTIAL 2021-07-25 Ramakrishna Garcia Islam 11:38:00 [facility] MAGNESIUM LEVEL 2021-07-25 Rodriguez Garciaist 11:38:00 [facility] ESTIMATED GFR 2021-07-25 Rodriguez Garcia 11:38:00 [facility] BLOOD CULTURE, AEROBIC & ANAEROBIC 2021-07-24 Jose Torres 23:46:00 [facility] BLOOD CULTURE, AEROBIC & ANAEROBIC 2021-07-24 Jose Torres 22:16:00 [facility] HEPATITIS B SURFACE ANTIGEN 2021-07-24 Rakel Baires odist 16:42:00 [facility] HEPATITIS B SURFACE AB, 2021-07-24 Rakel Baires t QUANTITATIVE 16:42:00 [facility] HEMODIALYSIS 2021-07-24 Rakel Baires 16:02:27 [facility] COMPREHENSIVE METABOLIC PANEL 2021-07-24 Rodriguez Garciaodist 10:40:00 [facility] HC COMPLETE BLD COUNT W/AUTO DIFF 2021-07-24 Meche Garcia Islam 10:40:00 [facility] MAGNESIUM LEVEL 2021-07-24 Rodriguez Garcia Islam 10:40:00 [facility] HEMOGLOBIN A1C 2021-07-24 Rodriguez Garcia Islam 10:40:00 [facility] [id number] SEROLOGY PATIENT 2021-07-24 DonaldReal odtraci SURVEILLANCE 10:40:00 [facility] ESTIMATED GFR 2021-07-24 Rodriguez Garcia 10:40:00 [place] [place] [address] ANTI-SPIKE IGG ANTIBODY 2021-07-24 DonaldDelroy Islam TITER 10:40:00 [facility] POC GLUCOSE 2021-07-23 Enrrique Canchola Islam 23:53:00 Hospital [place] AN ELECTIVE SUPRAGLOTTIC AIRWAY 2021-07-23 Peter Carbajal Islam 22:19:09 [facility] FISTULOGRAPHY, DIALYSIS SHUNT, AND 2021-07-23 Ramakrishna Garcia Islam DECLOTTING 22:10:00 [facility] POC GLUCOSE 2021-07-23 Enrrique Cancholaist 13:29:00 [facility] COMPREHENSIVE METABOLIC PANEL 2021-07-23 Rodriguez Garciaodist 10:57:00 [facility] HC COMPLETE BLD COUNT W/AUTO DIFF 2021-07-23 Meche Garcia Islam 10:57:00 [facility] MAGNESIUM LEVEL 2021-07-23 Rodriguez Garcia Islam 10:57:00 [facility] PROTHROMBIN TIME WITH INR 2021-07-23 Emerald Wilson ist 10:57:00 [facility] TYPE AND SCREEN 2021-07-23 Emerald Wilsonist 10:57:00 [facility] ESTIMATED GFR 2021-07-23 Enrrique Cancholaist 10:57:00 Hospital POC GLUCOSE 2021-07-23 Edward Cancholario Boo Islam 03:27:00 Hospital XR CHEST 1 VW PORTABLE 2021-07-[address] 00:01:29 [facility] HC COMPLETE BLD COUNT W/AUTO DIFF 2021-07-22 Javier Rodriguezist 23:49:00 Hospital ESTIMATED GFR 2021-07-22 Sumeet Rodriguez 23:49:00 Hospital COVID-19 QUALITATIVE RT-PCR 2021-07-22 Sumeet Rodriguez ethodist 23:49:00 [facility] COMPREHENSIVE METABOLIC PANEL 2021-07-22 Sumeet Rodriguez 23:49:00 Hospital ECG 12-LEAD 2021-07-22 Sumeet Rodriguez 23:39:37 [facility] ECG ED PRELIMINARY INTERPRETATION 2021-07-22 Benito Erazoist 23:33:55 [facility] [id number] 2021-03-26 RASSA [facility] 00:00:00 [facility] ECG 12-LEAD 2021-03-07 Brenda Chavira 15:13:49 [facility] BASIC METABOLIC PANEL 2021-02-21 Rakel Baires 10:26:00 [facility] MAGNESIUM LEVEL 2021-02-21 Rakel Baires 10:26:00 [facility] PHOSPHORUS LEVEL 2021-02-21 [facility] Garcia 10:26:00 [facility] ALBUMIN LEVEL 2021-02-21 Rakel Baires 10:26:00 [facility] CBC WITH PLATELET AND DIFFERENTIAL 2021-02-21 Anusha Baires Islam 10:26:00 [facility] ESTIMATED GFR 2021-02-21 Rakel Biares 10:26:00 [facility] HEMODIALYSIS 2021-02-20 Rakel Baires 05:06:53 [facility] TTE COMPLETE, W CONTRAST, W 2021-02-19 Ahmad, Orestes Meth odist DOPPLER ([id number]) 18:39:48 [facility] US THORACENTESIS WITH IMAGING 2021-02-19 Yasir Moore thodist 16:01:23 [facility] XR CHEST 1 VW PORTABLE 2021-02-19 Ibrahima Israel Islam 14:13:00 [facility] COMPREHENSIVE METABOLIC PANEL 2021-02-19 Orestes Becker Ar thodist 09:22:00 Hospital HC COMPLETE BLD COUNT W/AUTO DIFF 2021-02-19 Orestes Becker Islam 09:22:00 Hospital MAGNESIUM LEVEL 2021-02-19 Orestes Becker Islam 09:22:00 Hospital PHOSPHORUS LEVEL 2021-02-19 Orestes Becker Islam 09:22:00 Hospital ESTIMATED GFR 2021-02-19 Orestes Becker Islam 09:22:00 Hospital SMEAR REVIEW 2021-02-19 Orestes Becker 09:22:00 Hospital HEMODIALYSIS 2021-02-18 Rakel Baires Islam 11:58:37 [facility] HC COMPLETE BLD COUNT W/AUTO DIFF 2021-02-18 Wade Palist 09:34:00 [facility] BASIC METABOLIC PANEL 2021-02-18 Brendan Zapata 09:34:00 [facility] ESTIMATED GFR 2021-02-18 Brendan Zapata Islam 09:34:00 [facility] CT CHEST WO CONTRAST 2021-02-18 Brendan Zapata 03:48:32 [facility] XR CHEST 1 VW 2021-02-17 Gigi Sood Islam 21:57:34 [facility] US THORACENTESIS WITH IMAGING 2021-02-17 Yasir Moore Ar thodist 21:45:00 [facility] TTE COMPLETE, WO CONTRAST, W 2021-02-17 Rakel Baires Met hodist DOPPLER ([id number]) 18:36:00 [facility] BASIC METABOLIC PANEL 2021-02-17 Jena Mcneil Islam 09:18:00 Hospital HC COMPLETE BLD COUNT W/AUTO DIFF 2021-02-17 Wade Pal 09:18:00 Hospital ESTIMATED GFR 2021-02-17 Jena Mcneil 09:18:00 Hospital SMEAR REVIEW 2021-02-17 Jena Mcneil Islam 09:18:00 Hospital HEMODIALYSIS 2021-02-16 Jena Mcneil 13:48:09 [facility] BASIC METABOLIC PANEL 2021-02-16 Jena Mcneil 09:08:00 [facility] CBC WITH PLATELET AND DIFFERENTIAL 2021-02-16 Brendan Zapata 09:08:00 [facility] ESTIMATED GFR 2021-02-16 Jena Mcneil 09:08:00 Hospital SMEAR REVIEW 2021-02-16 Brendan Zapata 09:08:00 [facility] XR CHEST 1 VW PORTABLE 2021-02-16 Yasir Moore 06:51:26 [facility] ULTRAFILTRATION 2021-02-15 Jena Mcneil 19:07:31 [facility] ESOPHAGOGASTRODUODENOSCOPY (EGD) 2021-02-15 Naty Palist 14:30:00 [facility] COLONOSCOPY 2021-02-15 Fabiana Pal 14:30:00 [facility] SURGICAL PATHOLOGY REQUEST 2021-02-15 Brendan Zapata Metho dist 14:08:00 [facility] HEMOGLOBIN & HEMATOCRIT 2021-02-15 Brendan Zapata Methodis t 10:37:00 [facility] COMPREHENSIVE METABOLIC PANEL 2021-02-15 Brendan Zapata thodist 10:37:00 [facility] MAGNESIUM LEVEL 2021-02-15 Brendan Zapataist 10:37:00 [facility] PHOSPHORUS LEVEL 2021-02-15 Brendan Zapataist 10:37:00 [facility] ESTIMATED GFR 2021-02-15 Brendan Zapataist 10:37:00 [facility] HEMOGLOBIN & HEMATOCRIT 2021-02-15 Brendan Zapata Methodis t 02:58:00 [facility] HEMOGLOBIN & HEMATOCRIT 2021-02-14 Brendan Zapata Methodtae t 22:23:00 [facility] XR CHEST 1 VW PORTABLE 2021-02-14 Jena Mcneil 17:41:56 [facility] TRANSFUSE RED BLOOD CELLS 2021-02-14 Jena Mcneil Method ist 15:58:52 Hospital TRANSFUSE RED BLOOD CELLS 2021-02-14 Jena Mcneil ist 15:11:54 Hospital HEMODIALYSIS 2021-02-14 Jena Mcneil 12:47:51 Hospital COVID-19 QUALITATIVE RT-PCR 2021-02-14 Brendan Zapata odtraci 10:27:00 [facility] HC COMPLETE BLD COUNT W/AUTO DIFF 2021-02-14 Isidro Thornton 09:15:00 Hospital COMPREHENSIVE METABOLIC PANEL 2021-02-14 Isidro Thornton thodist 09:15:00 Hospital MAGNESIUM LEVEL 2021-02-14 Isidro Thornton 09:15:00 Hospital PHOSPHORUS LEVEL 2021-02-14 Isidro Thornton 09:15:00 Hospital B NATRIURETIC PEPTIDE 2021-02-14 Rakel Baires 09:15:00 [facility] TOTAL IRON BINDING CAPACITY 2021-02-14 Rakel Baires 09:15:00 [facility] FERRITIN LEVEL 2021-02-14 Rakel Baires 09:15:00 [facility] ESTIMATED GFR 2021-02-14 Isidro Thornton 09:15:00 Hospital TYPE AND SCREEN 2021-02-14 Jena Mcneil 01:40:00 Hospital PREPARE RBC 2021-02-14 Jena Mcneil 01:40:00 Hospital HEMOGLOBIN & HEMATOCRIT 2021-02-13 Brendan Zapata t 23:48:00 [facility] HEPATITIS B SURFACE ANTIGEN 2021-02-13 Rakel Baires odist 17:52:00 [facility] HEPATITIS B SURFACE ANTIBODY 2021-02-13 Rakel Baires hodist 17:52:00 [facility] US THORACENTESIS WITH IMAGING 2021-02-13 Isidro Thornton thodist 15:07:03 Hospital AFB STAIN 2021-02-13 Yasir Moore 14:30:00 [facility] FUNGUS CULTURE 2021-02-13 Yasir Moore 14:30:00 [facility] FUNGUS SMEAR 2021-02-13 Yasir Moore 14:30:00 [facility] AFB CULTURE 2021-02-13 Yasir Moore 14:30:00 [facility] GRAM STAIN ONLY 2021-02-13 Yasir Mooreist 14:30:00 [facility] BLOOD CULTURE, AEROBIC & ANAEROBIC 2021-02-13 Brendan Zapata Islam 14:30:00 [facility] GLUCOSE LEVEL, [facility] 2021-02-13 Isidro Thornton ist 14:30:00 Hospital LDH, [facility] FLUID 2021-02-13 Isidro Thornton 14:30:00 Hospital PH, [facility] FLUID 2021-02-13 Isidro Thornton 14:30:00 Hospital PROTEIN, [facility] FLUID 2021-02-13 Yasir Mooreist 14:30:00 [facility] CELL COUNT AND DIFFERENTIAL, BODY 2021-02-13 BhavikMalena i FLUID 14:30:00 [facility] CYTOLOGY (NON-GYNECOLOGICAL) 2021-02-13 Brendan Zapata Met hodist REQUEST 14:30:00 [facility] XR CHEST 1 VW PORTABLE 2021-02-[address] 14:27:12 [facility] URINE CULTURE 2021-02-13 Isidro Thornton 11:42:00 Hospital URINALYSIS SCREEN AND MICROSCOPY, 2021-02-13 Isidro Thornton WITH REFLEX TO CULTURE 11:42:00 Hospital HEMODIALYSIS 2021-02-13 Rakel Baires 11:25:08 [facility] TROPONIN 2021-02-13 Isidro Thornton 08:41:00 Hospital HC COMPLETE BLD COUNT W/AUTO DIFF 2021-02-13 Isidro Thornton 08:41:00 Hospital PROTHROMBIN TIME WITH INR 2021-02-13 Isidro Thornton ist 08:41:00 Hospital COMPREHENSIVE METABOLIC PANEL 2021-02-13 Isidro Thornton thodist 08:41:00 Hospital MAGNESIUM LEVEL 2021-02-13 Isidro Thornton 08:41:00 Hospital PHOSPHORUS LEVEL 2021-02-13 Isidro Thornton 08:41:00 Hospital ESTIMATED GFR 2021-02-13 Isidro Thornton 08:41:00 Hospital ECG ED PRELIMINARY INTERPRETATION 2021-02-13 Elisabeth Augustine 06:56:16 [facility] TROPONIN 2021-02-13 Isidro Thornton 04:41:[address] CHEST WO CONTRAST 2021-02-13 Ulisses Bairessana Garcia 03:18:22 [facility] XR CHEST 1 VW PORTABLE 2021-02-13 Veronica Augustine t 01:07:40 [facility] HC COMPLETE BLD COUNT W/AUTO DIFF 2021-02-13 Elisabeth Augustine 01:07:00 [facility] COMPREHENSIVE METABOLIC PANEL 2021-02-13 Veronica Augustine ethodist 01:07:00 [facility] AMYLASE LEVEL 2021-02-13 Veronica Augustine 01:07:00 [facility] LIPASE LEVEL 2021-02-13 Veronica Augustine 01:07:00 [facility] TROPONIN 2021-02-13 Isidro Thornton 01:07:00 Hospital ESTIMATED GFR 2021-02-13 Veronica Augustine 01:07:00 [facility] ECG 12-LEAD 2021-02-13 Isidro Thornton 00:57:02 Hospital XR CHEST 1 VIEW PORTABLE / BEDSIDE 2020-08-[address] [facility] 13:11:00 [facility] HEMODIALYSIS INPATIENT 2020-08-[address] [facility] 07:26:45 [facility] BASIC METABOLIC PANEL (7) 2020-08-[address] [facility] 04:04:00 [facility] CBC (HEMOGRAM ONLY) 2020-08-[address] [facility] 04:04:00 [facility] MAGNESIUM 2020-08-[address] [facility] 04:04:00 [facility] PHOSPHORUS 2020-08-[address] [facility] 04:04:00 [facility] BASIC METABOLIC PANEL (7) 2020-08-[address] [facility] 04:54:00 [facility] CBC (HEMOGRAM ONLY) 2020-08-[address] [facility] 04:54:00 [facility] MAGNESIUM 2020-08-[address] [facility] 04:54:00 [facility] PHOSPHORUS 2020-08-[address] [facility] 04:54:00 [facility] XR CHEST 1 VIEW PORTABLE / BEDSIDE 2020-08-18 Car[address] [facility] 03:30:00 [facility] PREPARE LEUKO-REDUCED RBC 2020-08-[address] [facility] 23:54:00 [facility] PREPARE LEUKO-REDUCED PLATELETS 2020-08-[address] [facility] 23:54:00 [facility] POCT-GLUCOSE METER 2020-08-[address] [facility] 15:46:00 [facility] POCT-GLUCOSE METER 2020-08-[address] [facility] 12:21:00 [facility] XR CHEST 1 VIEW PORTABLE / BEDSIDE 2020-08-[address] [facility] 09:33:00 [facility] POCT-GLUCOSE METER 2020-08-[address] [facility] 08:23:00 [facility] SARS-COV2/RT-PCR ([facility]) 2020-08-[address] [facility] 05:25:00 [facility] BASIC METABOLIC PANEL (7) 2020-08-[address] [facility] 05:19:00 [facility] CBC (HEMOGRAM ONLY) 2020-08-[address] [facility] 05:19:00 [facility] MAGNESIUM 2020-08-[address] [facility] 05:19:00 [facility] PHOSPHORUS 2020-08-[address] [facility] 05:19:00 [facility] TRANSFUSE LEUKO-REDUCED PLATELETS 2020-08-[address] [facility] 22:50:00 [facility] POCT-GLUCOSE METER 2020-08-[address] [facility] 20:39:00 [facility] [facility] HEMODIALYSIS INPATIENT 2020-08-[address] [facility] 18:27:53 [facility] POCT-GLUCOSE METER 2020-08-[address] [facility] 16:56:00 [facility] TRANSFUSE LEUKO-REDUCED RED BLOOD 2020-08-[address] [facility] CELLS 16:10:00 [facility] POCT-GLUCOSE METER 2020-08-[address] [facility] 12:22:00 [facility] POCT-GLUCOSE METER 2020-08-[address] [facility] 07:21:00 [facility] BASIC METABOLIC PANEL (7) 2020-08-[address] [facility] 04:06:00 [facility] CBC (HEMOGRAM ONLY) 2020-08-[address] [facility] 04:06:00 [facility] MAGNESIUM 2020-08-[address] [facility] 04:06:00 [facility] PHOSPHORUS 2020-08-[address] [facility] 04:06:00 [facility] CALCIUM, IONIZED 2020-08-[address] [facility] 04:06:00 [facility] XR CHEST 1 VIEW PORTABLE / BEDSIDE 2020-08-[address] [facility] 03:21:00 [facility] POCT-GLUCOSE METER 2020-08-[address] [facility] 20:41:00 [facility] POCT-GLUCOSE METER 2020-08-[address] [facility] 15:00:00 [facility] XR CHEST 1 VIEW PORTABLE / BEDSIDE 2020-08-[address] [facility] 14:35:00 [facility] US THORACENTESIS 2020-08-[address] [facility] 13:25:00 [facility] POCT-GLUCOSE METER 2020-08-[address] [facility] 12:15:00 [facility] PT/APTT 2020-08-[address] [facility] 09:33:00 [facility] POCT-GLUCOSE METER 2020-08-[address] [facility] 07:28:00 [facility] XR CHEST 1 VIEW PORTABLE / BEDSIDE 2020-08-[address] [facility] 03:53:00 [facility] ANTI-NUCLEAR ANTIBODY (MISSAEL) 2020-08-[address] [facility] 03:47:00 [facility] BASIC METABOLIC PANEL (7) 2020-08-[address] [facility] 03:47:00 [facility] CBC (HEMOGRAM ONLY) 2020-08-[address] [facility] 03:47:00 [facility] MAGNESIUM 2020-08-[address] [facility] 03:47:00 [facility] PHOSPHORUS 2020-08-[address] [facility] 03:47:00 [facility] CALCIUM, IONIZED 2020-08-[address] [facility] 03:47:00 [facility] MISSAEL TITER AND PATTERN 2020-08-[address] [facility] 03:47:00 [facility] PREPARE RBC 2020-08-[address] [facility] 23:54:00 [facility] PREPARE PLATELETS 2020-08-[address] [facility] 23:54:00 [facility] PREPARE PLASMA 2020-08-[address] [facility] 23:54:00 [facility] OXYGEN SATURATION, MEASURED 2020-08-[address] [facility] 10:38:00 [facility] US ABDOMEN LIMITED 2020-08-[address] [facility] 10:23:00 [facility] POCT-GLUCOSE METER 2020-08-[address] [facility] 06:05:00 [facility] BASIC METABOLIC PANEL (7) 2020-08-[address] [facility] 03:52:00 [facility] CBC (HEMOGRAM ONLY) 2020-08-[address] [facility] 03:52:00 [facility] MAGNESIUM 2020-08-[address] [facility] 03:52:00 [facility] PHOSPHORUS 2020-08-[address] [facility] 03:52:00 [facility] LIPID PANEL 2020-08-[address] [facility] 03:52:00 [facility] HEMOGLOBIN A1C 2020-08-[address] [facility] 03:52:00 [facility] HC LAB HIV-1 AG W/HIV-1&2 AB 2020-08-[address] [facility] 03:52:00 [facility] HEPATITIS C ANTIBODY 2020-08-[address] [facility] 03:52:00 [facility] HEPATITIS B PANEL 2020-08-[address] [facility] 03:52:00 [facility] CALCIUM, IONIZED 2020-08-[address] [facility] 03:52:00 [facility] BLOOD GAS, ARTERIAL 2020-08-[address] [facility] 03:52:00 [facility] XR CHEST 1 VIEW PORTABLE / BEDSIDE 2020-08-[address] [facility] 01:23:00 [facility] POCT-GLUCOSE METER 2020-08-[address] [facility] 00:31:00 [facility] RRL CRITICAL LABS 2020-08-[address] [facility] (ABG,NA,K,H&H,GLUCOSE) 19:34:00 [facility] enter LACTIC ACID, ARTERIAL 2020-08-[address] [facility] 19:34:00 [facility] BLOOD GAS, ARTERIAL 2020-08-[address] [facility] 19:34:00 [facility] SODIUM NA-STAT LAB 2020-08-[address] [facility] 19:34:00 [facility] POTASSIUM-STAT LAB 2020-08-[address] [facility] 19:34:00 [facility] GLUCOSE-STAT LAB 2020-08-13 Sera, Estee [facility] 19:34:00 [facility] HGB/HCT (H&H) - STAT LAB 2020-08-[address] [facility] 19:34:00 [facility] RRL CRITICAL LABS 2020-08-[address] [facility] [facility] (ABG,NA,K,H&H,GLUCOSE) 16:17:00 [facility] enter BLOOD GAS, ARTERIAL 2020-08-[address] [facility] 16:17:00 [facility] SODIUM NA-STAT LAB 2020-08-[address] [facility] [facility] 16:17:00 [facility] POTASSIUM-STAT LAB 2020-08-[address] [facility] 16:17:00 [facility] GLUCOSE-STAT LAB 2020-08-[address] [facility] [facility] 16:17:00 [facility] HGB/HCT (H&H) - STAT LAB 2020-08-[address] [facility] 16:17:00 [facility] XR CHEST 1 VIEW PORTABLE / BEDSIDE 2020-08-[address] [facility] 15:30:00 [facility] Center CALCIUM, IONIZED 2020-08-[address] [facility] 14:31:00 [facility] Center PT/APTT 2020-08-[address] [facility] 14:30:00 [facility] Center PROTHROMBIN TIME/INR 2020-08-[address] [facility] 14:30:00 [facility] OXYGEN SATURATION, MEASURED 2020-08-[address] [facility] 14:30:00 [facility] THROMBOELASTOGRAPH (TEG) 2020-08-[address] [facility] 14:30:00 [facility] XR CHEST 1 VIEW PORTABLE / BEDSIDE 2020-08-[address] [facility] 14:00:00 [facility] MAGNESIUM 2020-08-[address] [facility] 13:44:00 [facility] RRL CRITICAL LABS 2020-08-[address] [facility] (ABG,NA,K,H&H,GLUCOSE) 13:44:00 Medical enter LACTIC ACID, ARTERIAL 2020-08-[address] [facility] 13:44:00 [facility] PHOSPHORUS 2020-08-[address] [facility] 13:44:00 [facility] CBC (HEMOGRAM ONLY) 2020-08-[address] [facility] 13:44:00 [facility] OXYGEN SATURATION, MEASURED 2020-08-[address] [facility] 13:44:00 [facility] COMPREHENSIVE METABOLIC PANEL 2020-08-[address] [facility] 13:44:00 [facility] BLOOD GAS, ARTERIAL 2020-08-[address] [facility] 13:44:00 Medical Center SODIUM NA-STAT LAB 2020-08-[address] [facility] 13:44:00 Medical Center POTASSIUM-STAT LAB 2020-08-[address] [facility] 13:44:00 Medical Center GLUCOSE-STAT LAB 2020-08-[address] [facility] 13:44:00 [facility] HGB/HCT (H&H) - STAT LAB 2020-08-[address] [facility] 13:44:00 [facility] LACTATE DEHYDROGENASE (LDH) 2020-08-13 [facility], [facility] 12:30:38 [facility] BILIRUBIN, TOTAL AND DIRECT 2020-08-13 Bill, [facility] 12:30:38 [facility] RRL CRITICAL LABS 2020-08-13 [facility], [facility] (ABG,NA,K,H&H,GLUCOSE) 12:27:17 [facility] enter PROTHROMBIN TIME/INR 2020-08-13 [facility] 12:27:17 [facility] APTT 2020-08-13 [facility] 12:27:17 [facility] FIBRINOGEN 2020-08-13 [facility], [facility] 12:27:17 [facility] THROMBOELASTOGRAPH (TEG) 2020-08-13 [facility], [facility] 12:27:17 [facility] PLATELET COUNT 2020-08-13 [facility], [facility] 12:27:17 [facility] HAPTOGLOBIN 2020-08-13 [facility] 12:27:17 [facility] BLOOD GAS, ARTERIAL 2020-08-13 [facility], [facility] 12:27:17 [facility] SODIUM NA-STAT LAB 2020-08-13 [facility], [facility] 12:27:17 [facility] POTASSIUM-STAT LAB 2020-08-13 [facility], [facility] 12:27:17 [facility] GLUCOSE-STAT LAB 2020-08-13 [facility] 12:27:17 [facility] HGB/HCT (H&H) - STAT LAB 2020-08-13 [facility], [facility] 12:27:17 [facility] RETICULOCYTE COUNT 2020-08-13 Bill, [facility] 12:27:00 [facility] HEPATITIS B SURFACE ANTIGEN 2020-08-[address] [facility] 12:27:00 [facility] TRANSFUSE LEUKO-REDUCED RED BLOOD 2020-08-13 Bill, [facility] CELLS 12:08:00 [facility] TRANSFUSE LEUKO-REDUCED RED BLOOD 2020-08-[address] [facility] CELLS 12:04:00 [facility] RRL CRITICAL LABS 2020-08-[address] [facility] (ABG,NA,K,H&H,GLUCOSE) 11:41:41 Medical enter CALCIUM, IONIZED 2020-08-13 Bill, Kristy [facility] 11:41:41 [facility] PROTHROMBIN TIME/INR 2020-08-[address] [facility] 11:41:41 Medical Center APTT 2020-08-13 Bill, Kristy [facility] 11:41:41 [facility] Center FIBRINOGEN 2020-08-13 Bill, Kristy [facility] 11:41:41 Medical Center PLATELET COUNT 2020-08-[address] [facility] 11:41:41 [facility] BLOOD GAS, ARTERIAL 2020-08-13 Bill, Kristy [facility] 11:41:41 [facility] Center SODIUM NA-STAT LAB 2020-08-[address] [facility] 11:41:41 Medical Center POTASSIUM-STAT LAB 2020-08-[address] [facility] 11:41:41 Medical Center GLUCOSE-STAT LAB 2020-08-[address] [facility] 11:41:41 Medical Center HGB/HCT (H&H) - STAT LAB 2020-08-[address] [facility] 11:41:41 [facility] CBC W/PLT COUNT & AUTO 2020-08-[address] [facility] DIFFERENTIAL 11:41:00 [facility] RETICULOCYTE COUNT 2020-08-[address] [facility] 11:41:00 [facility] CBC W/PLT COUNT & AUTO 2020-08-13 Ali, Bradmed [facility] DIFFERENTIAL 11:41:00 [facility] TRANSFUSE LEUKO-REDUCED RED BLOOD 2020-08-[address] [facility] CELLS 11:26:00 [facility] TRANSFUSE LEUKO-REDUCED PLATELETS 2020-08-13 Bill, Kristy [facility] 11:20:00 [facility] TRANSFUSE PLASMA 2020-08-13 Bill, Kristy [facility] 11:19:00 [facility] TRANSFUSE LEUKO-REDUCED PLATELETS 2020-08-13 Bill, Kristy [facility] 11:19:00 [facility] TRANSFUSE PLASMA 2020-08-13 Bill, Kristy [facility] 11:18:00 [facility] TRANSFUSE LEUKO-REDUCED RED BLOOD 2020-08-13 Bill, Kristy [facility] 11:05:00 [facility] POCT-ACT 2020-08-[address] [facility] 10:58:00 [facility] TRANSFUSE LEUKO-REDUCED PLATELETS 2020-08-13 Bill, Kristy [facility] 10:58:00 [facility] APTT 2020-08-13 Bill, Kristy [facility] 10:51:02 [facility] FIBRINOGEN 2020-08-13 Bill, Kristy [facility] 10:51:02 [facility] THROMBOELASTOGRAPH (TEG) 2020-08-13 Bill, Kristy [facility] 10:51:02 [facility] PLATELET COUNT 2020-08-13 [facility], Kristy [facility] 10:51:02 [facility] BLOOD GAS, ARTERIAL 2020-08-13 Bill, Kristy [facility] 10:51:02 [facility] SODIUM NA-STAT LAB 2020-08-13 [facility], Kristy [facility] 10:51:02 [facility] POTASSIUM-STAT LAB 2020-08-13 [facility], Kristy [facility] 10:51:02 [facility] GLUCOSE-STAT LAB 2020-08-13 [facility], Kristy [facility] 10:51:02 [facility] HGB/HCT (H&H) - STAT LAB 2020-08-13 [facility], Kristy [facility] 10:51:02 [facility] RRL CRITICAL LABS 2020-08-13 [facility], Kristy [facility] (ABG,NA,K,H&H,GLUCOSE) 10:51:02 Medical enter PROTHROMBIN TIME/INR 2020-08-13 [facility], Kristy [facility] 10:51:02 [facility] TRANSFUSE LEUKO-REDUCED RED BLOOD 2020-08-13 Bill, Kristy [facility] 10:42:00 [facility] TRANSFUSE LEUKO-REDUCED PLATELETS 2020-08-13 Bill, Kristy [facility] 10:41:00 [facility] TRANSFUSE LEUKO-REDUCED PLATELETS 2020-08-13 Bill, Manu [facility] 10:30:00 [facility] POCT-ACT 2020-08-[address] [facility] 10:28:00 [facility] TRANSFUSE LEUKO-REDUCED PLATELETS 2020-08-13 [facility], Kristy [facility] 10:28:00 [facility] TRANSFUSE LEUKO-REDUCED PLATELETS 2020-08-13 [facility], Kristy [facility] 10:27:00 [facility] RRL CRITICAL LABS 2020-08-13 [facility], Kristy [facility] (ABG,NA,K,H&H,GLUCOSE) 10:15:25 [facility] enter CALCIUM, IONIZED 2020-08-13 [facility], Kristy [facility] 10:15:25 [facility] PROTHROMBIN TIME/INR 2020-08-13 [facility], [facility]y [facility] 10:15:25 [facility] APTT 2020-08-13 [facility], Kristy [facility] 10:15:25 [facility] FIBRINOGEN 2020-08-13 [facility], Kristy [facility] 10:15:25 [facility] PLATELET COUNT 2020-08-13 [facility], Kristy [facility] 10:15:25 [facility] BLOOD GAS, ARTERIAL 2020-08-13 [facility], Kristy [facility] 10:15:25 [facility] SODIUM NA-STAT LAB 2020-08-13 [facility], Kristy [facility] 10:15:25 [facility] POTASSIUM-STAT LAB 2020-08-13 [facility], Kristy [facility] 10:15:25 [facility] GLUCOSE-STAT LAB 2020-08-13 [facility], Kristy [facility] 10:15:25 [facility] HGB/HCT (H&H) - STAT LAB 2020-08-13 [facility], Kristy [facility] 10:15:25 [facility] PERIPHERAL BLOOD SMEAR - HOLD ONLY 2020-08-13 [address] [facility] 10:15:00 [facility] POCT-ACT 2020-08-[address] [facility] [facility] 09:49:00 [facility] RRL CRITICAL LABS 2020-08-[address] [facility] (ABG,NA,K,H&H,GLUCOSE) 09:46:29 [facility] enter BLOOD GAS, ARTERIAL 2020-08-[address] [facility] 09:46:29 [facility] SODIUM NA-STAT LAB 2020-08-[address] [facility] [facility] 09:46:29 [facility] POTASSIUM-STAT LAB 2020-08-[address] [facility] [facility] 09:46:29 [facility] GLUCOSE-STAT LAB 2020-08-[address] [facility] 09:46:29 [facility] HGB/HCT (H&H) - STAT LAB 2020-08-[address] [facility] 09:46:29 [facility] TRANSFUSE LEUKO-REDUCED RED BLOOD 2020-08-[address] [facility] CELLS 09:34:00 [facility] POCT-ACT 2020-08-[address] [facility] 09:26:00 [facility] RRL CRITICAL LABS [facility]-08-[facility] (ABG,NA,K,H&H,GLUCOSE) 09:20:37 [facility] enter BLOOD GAS, ARTERIAL 2020-08-[address] [facility] 09:20:37 [facility] SODIUM NA-STAT LAB 2020-08-13 [facility] 09:20:37 [facility] POTASSIUM-STAT LAB 2020-08-13 [facility] 09:20:37 [facility] GLUCOSE-STAT LAB 2020-08-[facility] 09:20:37 [facility] HGB/HCT (H&H) - STAT LAB 2020-08-[facility] 09:20:37 [facility] POCT-ACT 2020-08-[address] [facility] 08:59:00 [facility] ANESTHESIA DASIA 2020-08-[address] [facility] [facility] 08:21:33 [facility] ABORH, MANUAL 2020-08-[address] [facility] 08:14:00 [facility] POCT-ACT 2020-08-13 [facility] 08:11:00 [facility] RRL CRITICAL LABS 2020-08-13 Bill, Kristy [facility] (ABG,NA,K,H&H,GLUCOSE) 07:51:14 Medical enter CALCIUM, IONIZED 2020-08-13 Bill, Kristy [facility] 07:51:14 [facility] BLOOD GAS, ARTERIAL 2020-08-13 Bill, Kristy [facility] 07:51:14 [facility] SODIUM NA-STAT LAB 2020-08-[address] [facility] 07:51:14 [facility] POTASSIUM-STAT LAB 2020-08-[address] [facility] 07:51:14 [facility] GLUCOSE-STAT LAB 2020-08-[address] [facility] 07:51:14 [facility] HGB/HCT (H&H) - STAT LAB 2020-08-[address] [facility] 07:51:14 [facility] BYPASS,AORTO CORONARY HENRY/SVG 2020-08-13 Stewart Arenas [facility] 07:07:00 [facility] ENDOSCOPIC HARVEST,VEIN 2020-08-[address] [facility] 07:07:00 [facility] DASIA,3D 2020-08-[address] [facility] 07:07:00 [facility] XR CHEST 1 VIEW PORTABLE / BEDSIDE 2020-08-13 Deepa Carlie milian [facility] 06:41:00 [facility] ABORH, MANUAL 2020-08-[address] [facility] 06:28:00 [facility] CBC W/PLT COUNT & AUTO 2020-08-[address] [facility] DIFFER[facility] 06:28:00 [facility] MAGNESIUM 2020-08-[address] [facility] 06:28:00 [facility] COMPREHENSIVE METABOLIC PANEL 2020-08-13 Stewart Arenas [facility] 06:28:00 [facility] HEMOGLOBIN A1C 2020-08-[address] [facility] 06:28:00 [facility] LIPID PANEL 2020-08-[address] [facility] 06:28:00 [facility] CBC W/PLT COUNT & AUTO 2020-08-[address] [facility]FFER[facility] 06:28:00 [facility] PROTHROMBIN TIME/INR 2020-08-[address] [facility] 06:28:00 [facility] APTT 2020-08-[address] [facility] 06:28:00 [facility] PHOSPHORUS 2020-08-[address] [facility] 06:28:00 [facility] BILIRUBIN, TOTAL AND DIRECT 2020-08-[address] [facility] 06:28:00 [facility] LACTATE DEHYDROGENASE (LDH) 2020-08-[address] [facility] 06:28:00 [facility] Center POCT-GLUCOSE METER 2020-08-[address] [facility] 06:01:00 [facility] SARS-COV2/RT-PCR ([facility] & REF LABS) 2020-08-[address] [facility] 11:42:00 [facility] Central line insertion<sup>1</sup> 2016-08-23 [facility] 00:00:00 AV - Creation of arteriovenous 2015-08-23 [facility] 00:00:00 Procedure<sup>2, 3</sup> Lukasz Shaw Plan of Care Planned Activity Planned Date Details Comments Source Future Scheduled 2023-08-[address] [facility] 00:00:00 (procedure) [code = Medical Center 45412502] Future Scheduled 2022-06-25 HEPATITIS B VACCINES [facility] Test 04:34:50 (1 of 3 - 3-dose series) [code = HEPATITIS B VACCINES (1 of 3 - 3-dose series)] Future Scheduled 2022-06-25 COVID-19 VACCINE (#1) [facility] Test 04:34:50 [code = COVID-19 VACCINE (#1)] Future Scheduled 2022-06-25 65+ [facility] 04:34:50 VACCINE (1 - PCV) [code = 65+ PNEUMOCOCCAL VACCINE (1 - PCV)] Future Scheduled 2022-06-25 DIABETES: RETINAL EYE [facility] Test 04:34:50 EXAM [code = DIABETES: RETINAL EYE EXAM] Future Scheduled 2022-06-25 DIABETIC FOOT EXAM [facility] Test 04:34:50 [code = DIABETIC FOOT EXAM] Future Scheduled 2022-06-25 Hepatitis C screening [facility] Test 04:34:50 (procedure) [code = 871404632] Future Scheduled 2022-06-25 SHINGLES VACCINES (1 Met [facility] Test 04:34:50 of 2) [code = SHINGLES VACCINES (1 of 2)] Future Scheduled 2022-06-25 COLONOSCOPY SCREENING [facility] Test 04:34:50 [code = COLONOSCOPY SCREENING] Future Scheduled 2022-06-25 [facility] Test 04:34:50 malignant neoplasm of lung (procedure) [code = 334489081] Future Scheduled 2022-06-25 [facility]ACCINE [facility] 04:34:50 [code = INFLUENZA VACCINE] Future Scheduled 2022-04-23 INFLUENZA VACCINE (#1) [facility]00 [code = INFLUENZA Medical Ce nter VACCINE (#1)] Future Scheduled 2021-08-[address] [facility] Test 00:00:00 (12+) [code = Medical Center DEPRESSION SCREENING (12+)] Future Scheduled 2021-08-23 FALLS RISK SCREENING [facility] Test 00:00:00 [code = FALLS RISK Medical C enter SCREENING] Future Scheduled 2021-05-[address] [facility] 00:00:00 WELLNESS (YEAR 2 or Medical Center FIRST YEAR if no IPPE) [code = MEDICARE ANNUAL WELLNESS (YEAR 2 or FIRST YEAR if no IPPE)] Future Scheduled 2021-04-23 INFLUENZA VACCINE (#1) [facility] 00:00:00 [code = INFLUENZA Medical Ce nter VACCINE (#1)] Future Scheduled 2020 PNEUMOCOCCAL 65+ Y[facility] Test 00:00:00 (1 of 1 - Medical Center [id number]) [code = PNEUMOCOCCAL 65+ YRS (1 of 1 - [id number])] Future Scheduled 2020-05-23 Medicare IPPE (WELCOME [facility] 00:00:00 TO MEDICARE) [code = Medical Center Medicare IPPE (WELCOME TO MEDICARE)] Future Scheduled 2005 SHINGLES VACCINES ([address] [facility] Test 00:00:00 of 2) [code = SHINGLES Medic al Center VACCINES (1 of 2)] Future Scheduled 2005 SHINGLES VACCINES ([address] [facility] Test 00:00:00 of 2) [code = SHINGLES Medic al Center VACCINES (1 of 2)] Future Scheduled 1974 DTAP/TDAP/TD VACCINES [facility] 00:00:00 (1 - Tdap) [code = Medical C enter DTAP/TDAP/TD VACCINES (1 - Tdap)] Future Scheduled 1974 DTAP/TDAP/TD VACCINES [facility] 00:00:00 (1 - Tdap) [code = Medical C enter DTAP/TDAP/TD VACCINES (1 - Tdap)] Future Scheduled 1967 COVID-19 VACCINE (1) [facility] Test 00:00:00 [code = COVID-[address] VACCINE (1)] Future Scheduled 1961 PNEUMOCOCCAL [address]+ Y[facility] Test 00:00:00 (1 - PCV) [code = Medical Ce nter PNEUMOCOCCAL 65+ YRS (1 - PCV)] Future Scheduled 1955 COVID-19 VACCINE (#1) [facility] 00:00:00 [code = COVID-[address] VACCINE (#1)] Future Scheduled [address] [facility] 00:[facility]:00 malignant neoplasm of Medica l Center colon (procedure) [code = 702999875] Future Scheduled [address] [facility] 00:00:00 (combo) [code = CT Medical C enter Colonography (combo)] Future Scheduled [address] [facility] Test 00:00:00 malignant neoplasm of Medica l Center colon (procedure) [code = 528021323] Future Scheduled [address] [facility] Test 00:00:00 malignant neoplasm of Medica l Center colon (procedure) [code = 757279384] Future Scheduled [address] [facility] Test 00:00:00 [facility] (procedure) [code = 681603552] Future Scheduled [address] [facility] Test 00:00:00 [facility] (procedure) [code = 175625075] Future Scheduled 1955 Sigmoidoscopy [facility]code = [facility]] Medical Javie r Future Scheduled 65+ [facility]OC[facility] VACCINE (1 of 4 - PCV13) [code = 65+ PNEUMOCOCCAL VACCINE (1 of 4 - PCV13)] Future Scheduled DIABETES: RETINAL EYE [facility] Test EXAM [code = DIABETES: RETINAL EYE EXAM] Future Scheduled DIABETIC FOOT EXAM [facility] Test [code = DIABETIC FOOT EXAM] Future Scheduled COVID-19 VACCINE (1) [facility] [code = COVID-19 VACCINE (1)] Future Scheduled Hepatitis C [facility] (procedure) [code = 990445790] Future Scheduled [facility]OSCOPY [facility]CREENING [facility] [code = COLONOSCOPY SCREENING] Future Scheduled SHINGLES VACCINES (#1) [facility] [code = SHINGLES VACCINES (#1)] Future Scheduled [facility] Test malignant neoplasm of lung (procedure) [code = 831686291] Future Scheduled INFLUENZA VACCINE [facility] [code = INFLUENZA VACCINE] Encounters Start End Encounter Admission Attending Care Care Encounter Source Date/Time Date/Time Type Type Clinicians Facility Department ID 2021 [facility] [id number] [facility] 20:13:23 [facility] 2021-11-21 2021-11-21 [facility], 1.2.840.1 [id number] Methodi 14:10:46 23:59:00 Encounter Rupali 76934.1.[address] Elmer 3.430.2.7 Hospit a .3.534366 l .8 2021-11-21 2021-11-21 [facility], 1.2.840.1 [id number] 21 [id number] Methodi 13:19:01 14:09:00 Encounter Yasir Ede 24140.1.[address] Salim 3.430.2.7 Hospit a .3.012629 l .8 2021-11-21 2021-11-21 Travel 1.2.840.1 1.2.133.340 [id number] Methodi 00:00:00 00:00:[address] 3.430.2.7 0.2.7.3.698 Ho spita .3.703827 084.8 l .8 2021-11-21 2021-11-21 Outpatient [facility] [id number] [place] 00:00:00 00:00:00 YASIR [address] 2021-11-21 2021-11-21 Outpatient [facility] [id number] [place] 00:00:00 00:00:00 RUPALI [address] 2021-11-19 2021-11-19 Pre-Admiss [facility], 1.2.840.1 [id number] Methodi 09:30:00 10:00:00 ion Yasir Ede 64604.1.1 415 s t Testing Salim 3.430.2.7 Hospit a .3.165071 l .8 2021-11-19 2021-11-19 Travel 1.2.840.1 1.2.909.108 4982 [id number] Methodi 00:00:00 00:00:[address] 3.430.2.7 0.2.7.3.698 Ho spita .3.272145 084.8 l .8 2021-11-19 2021-11-19 Outpatient [facility] [id number] [place] 00:00:00 00:00:00 YASIR [address] 2021-11-14 2021-11-14 Telephone Gonzales, 1.2.840.1 [id number] Methodi 00:00:00 00:00:[address] 3.430.2.7 Hospit a .3.190116 l .8 2021-11-14 2021-11-14 Travel 1.2.840.1 1.2.818.547 4748 [id number] Methodi 00:00:00 00:00:[address] 3.430.2.7 0.2.7.3.698 Ho spita .3.757069 084.8 l .8 2021-11-10 2021-11-10 Transcribe [facility], 1.2.840.1 [id number] Methodi 00:00:00 00:00:00 Orders Yasir Ede 69080.1.1 791 s [address] Salim 3.430.2.7 Hospit a .3.023536 l .8 2021-07-30 2021-07-30 [facility], 1.2.840.1 [id number] 21 [id number] Methodi 23:59:00 23:59:00 Encounter Yasir Mera 34973.1.[address] Sali 3.430.2.7 Hospit a .3.203627 l .8 2021-07-30 2021-07-30 Outpatient [facility] [id number] [id number] [place] 00:00:00 00:00:00 YASIR [address] 2021-07-22 2021-07-29 [facility] Sukhwinder Maria 1.2.840.1 [id number] Methodi 17:14:00 19:05:00 Encounter Enrrique Cancholanabil 58740.1.[address] 3.430.2.7 Hospit a .3.819264 l .8 2021-07-22 2021-07-29 Inpatient ENRRIQUE CANCHOLA [facility] [id number] [place] 00:00:00 00:00:[address] 2021-07-23 2021-07-23 Anesthesia Chas Carbajal 1.2.840.1 [id number] Methodi 16:10:00 17:55:00 Event Jp Bustamante 51443.1.[address] 3.430.2.7 Hospit a .3.467556 l .8 2021-07-23 2021-07-23 Surgery Jose, 1.2.840.1 [id number] Methodi 14:35:00 15:50:00 Rodriguez Montes [address]63.1.[address] 3.430.2.7 Hospit a .3.626216 l .8 2021-07-09 2021-07-09 Travel 1.2.840.1 1.2.925.492 4949 [id number] Methodi 00:00:00 00:00:[address] 3.430.2.7 0.2.7.3.698 Ho spita .3.163854 084.8 l .8 2021-05-14 2021-05-14 Outpatient [facility] [id number] [place] 00:00:00 00:00:00 YASIR 857 Method i 2021-05-14 2021-05-14 Outpatient [facility] [id number] [place] 00:00:00 00:00:00 NOEL [address] 2021-05-13 2021-05-13 Outpatient [facility] [id number] [place] 00:00:00 00:00:00 RUPALI 268 Method i 2021-05-13 2021-05-13 Outpatient [facility] 2100 [id number] [place] 00:00:00 00:00:00 YASIR 680 Method i 2021-05-13 2021-05-13 Outpatient [facility] [id number] [place] 00:00:00 00:00:00 RUPALI 978 Method i 2021-05-12 2021-05-12 Outpatient [facility] 2100 [id number] [place] 00:00:00 00:00:00 YASIR 799 Method i 2021-05-07 2021-05-07 Inpatient EULALIO Zimmerman, HCACL OUTD [id number] [facility] 05:27:00 05:27:00 José 67 [facility] 2021-04-21 2021-04-21 Travel 1.2.840.1 1.2.989.090 [id number] [id number] Methodi 00:00:00 00:00:[address] 3.430.2.7 0.2.7.3.698 Ho spita .3.244931 084.8 l .8 2021-04-18 2021-04-18 Travel 1.2.840.1 1.2.212.933 0458 [id number] Methodi 00:00:00 00:00:[address] 3.430.2.7 0.2.7.3.698 Ho spita .3.589513 084.8 l .8 2021-04-16 2021-04-16 Transcribe Bhavikfiona, 1.2.840.1 [id number] Methodi 00:00:00 00:00:00 Orders Yasirsana eMra 76392.1.1 738 s t Salim 3.430.2.7 Hospit a .3.738219 l .8 2021-03-26 2021-03-26 Inpatient EULALIO Zimmerman, [facility]ACL INTE.02 [id number] [facility] 09:24:00 17:38:00 José 61 [facility] 2021-03-07 2021-03-07 Office [facility], 1.2.840.1 [id number] Methodi 09:45:57 10:44:36 Visit Mayankshaunna 19910.1.[address] 3.430.2.7 Hospit a .3.493045 l .8 2021-03-07 2021-03-07 Travel 1.2.840.1 1.2.408.883 0161 [id number] Methodi 00:00:00 00:00:[address] 3.430.2.7 0.2.7.3.698 Ho spita .3.856040 084.8 l .8 2021-02-21 2021-02-21 Orders Tarun, 1.2.840.1 [id number] [id number] Methodi 00:00:00 00:00:00 Only Manaf 30799.1.[address] 3.430.2.7 Hospit a .3.013440 l .8 2021-02-12 2021-02-21 Hospital [facility], 1.2.840.1 [id number] [place] 00:00:00 00:00:00 Encounter BENITO 93032.1.1 [address] .3.551811 .8 2021-02-15 2021-02-15 Anesthesia [place], 1.2.840.1 [id number] 2 [id number] Methodi 09:37:00 10:14:00 Event Sergio 76187.1.[address] 3.430.2.7 Hospit a .3.912637 l .8 2021-02-15 2021-02-15 Surgery Demarco, 1.2.840.1 [id number] Methodi 09:30:00 10:00:[address] 3.430.2.7 Hospit a .3.485349 l .8 2021-02-12 2021-02-12 Travel 1.2.840.1 1.2.477.562 7668 [id number] Methodi 00:00:00 00:00:[address] 3.430.2.7 0.2.7.3.698 Ho spita .3.038520 084.8 l .8 2021-01-18 2021-01-18 Refill Deysi, 1.2.840.5 [id number] 73049 Methodi 00:00:00 00:00:[address] Andreia 3.430.2.7 Hospit a .3.032161 l .8 2020-09-23 2020-09-23 [facility] [id number] 00:[facility] 00[facility]00[facility]00 [facility] 2020-09-22 2020-09-22 [facility] [id number] 00:[facility]00 00:00:00 [facility] 2020-09-03 2020-09-[address] [facility] [id number] 10:40:38 10:55:38 Visit [facility] 2020-09-03 2020-09-03 Outpatient [facility] [id number] [facility] 00:00:00 00:00:00 [facility] 2020-09-03 2020-09-03 Travel [facility] [id number] [facility] 00:[facility]00 00:00:00 [facility] 2020-08-13 2020-08-20 [facility] [id number] 05:53:00 11:24:00 Encounter [facility] 2020-08-13 2020-08-13 Anesthesia Kristy Khan [facility] [id number] [facility] 07:09:00 13:18:00 Event Hoang Reis [facility] 2020-08-13 2020-08-13 Surgery Deepa [facility] [id number] 07:30:00 10:45:00 [facility] 2020-08-12 2020-08-12 [facility] [id number] 11:10:00 23:59:00 Encounter [facility] 2020-08-12 2020-08-12 Outpatient [facility] [id number] [facility] 00:00:00 00:00:00 2020-08-12 2020-08-12 Travel [facility] [id number] [facility] 00:[facility]00 00:00:00 [facility] 2020-08-08 2020-08-08 Office EULALIO Arenas [facility] [id number] 10:55:22 11:25:22 Visit [facility] 2020-08-08 2020-08-08 [place] [facility] [id number] [facility] 00:00:00 00:00:00 [facility] 2020-06-26 2020-06-26 Telephone Elsa Khan 1.2.840.0 [id number] Methodi 00:00:00 00:00:[address] 3.430.2.7 Hospit a .3.457632 l .8 2020-06-26 2020-06-26 Orders Elsa Khan 1.2.840.0 [id number] 2 [id number] Methodi 00:00:00 00:00:[address] 3.430.2.7 Hospit a .3.213357 l .8 2020-06-25 2020-06-25 Desmond Jo 1.2.840.5 [id number] Methodi 00:00:00 00:00:[address] Andreia 3.430.2.7 Hospit a .3.747731 l .8 2017-06-01 2017-06-01 [facility] [id number] [facility]oria 15:06:00 20:45:00 Surgery r Colin [address] [facility] 2017-06-01 2017-06-01 Day [facility]Flavo [facility] [id number] Memoria 15:06:00 20:45:00 Surgery r Colin 03 [facility] 2017-06-01 2017-06-01 [facility] [id number] 10:06:00 15:45:00 Elder T 03 2017-03-04 2017-03-04 Emergency nullFlavo [facility] [id number] Memoria 19:12:00 23:25:00 r Colin 02 [facility] 2017-03-04 2017-03-04 Emergency nullFlavo [facility] [id number] Memoria 19:12:00 23:25:00 r Colin 02 [facility] 2017-03-04 2017-03-04 Outpatient Derick Khan [facility] [id number] 14:12:00 18:25:00 02 2017-02-26 2017-02-26 Day nullFlavo [facility] [id number] Memoria 11:00:00 17:27:00 Surgery r Colin [address] [facility] 2017-02-26 2017-02-26 Day nullFlavo [facility] [id number] Memoria 11:00:00 17:27:00 Surgery r Treadwell 01 [facility] 2017-02-26 2017-02-26 [facility] [id number] 06:00:00 12:27:00 Elder T 2017-02-24 2017-02-25 Outpt Diag nullFlavo [facility] [id number] Memoria 15:49:00 04:59:00 Services r Outpatient 07 [facility] 2017-02-24 2017-02-25 Outpt Diag nullFlavo [facility] [id number] Memoria 15:49:00 04:59:00 Services r Outpatient 07 [facility] 2017-02-24 2017-02-24 Outpatient Rodolfo 2.16.840. 2.16.840.1. [id number] 10:49:00 23:59:00 Elder Hyatt 1.091530. 053814.3.61 07 3.615.36 5.36 Results Test Description Test Time Test Comments Results Result Comments Source SARS-CoV-2 (COVID-19) RNA [Presence] in Respiratory sp ecimen by 2021-11-19 20:04:40 LUANN with probe detection Test Item Value Reference Range Interpretation Comme nts SARS-CoV-2 (COVID-19) RNA [Presence] in Respiratory specimen by Not detected LUANN with probe detection (test code = 74768-9) 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 (test code = Un known 95709-2) Whether the patient has symptoms related to condition of interest U nknown (test code = 27840-7) Whether the patient was hospitalized for condition of interest Unkn own (test code = 75396-8) Whether the patient was admitted to intensive care unit (ICU) for U nknown condition of interest (test code = 39302-0) Whether patient resides in a congregate care setting (test code = U nknown 90302-9) status (test code = 21261-6) Unknown Date and time of symptom onset (test code = 88238-9) Unknown [facility] [id number] 18:15:59 Test Item Value Reference Range Interpretation Comments MAX Pred HR (test code = 1562688686) 85 of MPHR (test code = 1659023632) Calc MPHR (test bpm code = 5530895697) Pred Exer Dur R1 (test code = 9309790105) Pred METS R1 (test code = 0266859483) YARI (test code = Left Ventricular ejection YARI) fraction is 60 - 65%. There is a pericardial effusion. There is a small pericardial effusion. No vegetations on aortic, mitral, pulmonic, tricuspid valves identified. EMILY occlusuion n device present. No device related trombosis identified. No trisha-device leak identified. Left VentricleThe left ventricular chamber size is normal. Left ventricular systolic function is normal. Left Ventricular ejection fraction is 60 - 65%. Normal left ventricular wall thickness and regional wall motion.Right VentricleNormal right ventricular size and global function.Left AtriumLA size is normal. There is no atrial septal defect present.Right AtriumThe right atrium is normal.Mitral ValveThe mitral valve appears normal. Trace mitral valve regurgitation. No evidence of mitral valve stenosis. No evidence of vegetation noted on the Mitral Valve.Tricuspid ValveThe tricuspid valve appears normal. Mild tricuspid valve regurgitation. No evidence of tricuspid valve stenosis. No indications of vegetation noted on the Tricuspid Valve.Aortic ValveThe aortic valve appears normal and trileaflet. No significant aortic regurgitation. No evidence of aortic valve stenosis. No indications of vegetation seen on the Aortic Valve.Pulmonic ValveThe pulmonic valve appears normal. Trace pulmonary valve regurgitation. No evidence of pulmonary valve stenosis. No evidence of vegetation on the pulmonic valve leaflets.PericardiumThere is pericardial effusion. There is small pericardial effusion.DASIA Procedure InfoAfter adequate sedation, a lubricated plane probe was advanced through the lower pharynx into the lower esophagus and transgastric area with ease. The probe was passed to the gastric fundus, and all standard echocardiographic views were obtained. Color flow doppler analysis performed. The patient tolerated the procedure well and recovered without any complications. Condition of patient after DASIA procedure: good.AortaAortic root is normal. [facility] and [id number] 13:40:00 Test Item Value Reference Range Interpretation Comments ABO grouping (test code = 883-9) O Rh type (test code = 12483-3) POS Antibody screen (gel) (test code = NEG 890-4) [facility] Limited or Follow Up (w Contrast if needed)2021-07-26 12:48:58 Test Item Value Reference Range Interpretation Comments MAX Pred HR (test code = 1216564915) 85 of MPHR (test code = 6294861576) Calc MPHR (test bpm code = 9104142135) Pred Exer Dur R1 (test code = 9327698096) Pred METS R1 (test code = 7943511014) ADD (test code = Addendum by Solis Khan ADD) on 07/26/2021 6:58 AM [employer] Left ventricular systolic function is normal. Left Ventricular ejection fraction is 50 - 55%. There is a pericardial effusion. There is a small pericardial effusion localized near the right ventricle. The following segments are hypokinetic: apical septal and apex. Normal left ventricular size with low normal systolic function an a distal septal and apical wall motion abnormality (likely due to bundle branch block). Trace mitral regurgitation. Normal right sided chambers. No evidence of valvular vegetation involving the aortic, mitral and tricuspid valves on this transthoracic study. Left VentricleThe left ventricular chamber size is normal. Left ventricular systolic function is normal. Left Ventricular ejection fraction is 50 - 55%. Normal left ventricular wall thickness and regional wall motion.Right VentricleNormal right ventricular size and global function.Left AtriumLA size is normal.Right AtriumThe right atrium is normal.Mitral ValveThe mitral valve appears normal. No significant mitral valve regurgitation. No evidence of vegetation noted on the Mitral Valve.Tricuspid ValveThe tricuspid valve appears normal. No significant tricuspid valve regurgitation. No indications of vegetation noted on the Tricuspid Valve.Aortic ValveThe aortic valve appears normal. No evidence of significant aortic regurgitation. No evidence of aortic valve stenosis. No indications of vegetation seen on the Aortic Valve.Pulmonic ValveThe pulmonic valve was not well visualized.PericardiumThere is pericardial effusion. There is small pericardial effusion localized near the right ventricle. No cardiac tamponade physiology is present. The pericardial effusion contains fluid.Pulmonary ArteryThe pulmonary artery is not well visualized.AortaAortic root is normal.Study Quality Limited echocardiographic views were obtained. Study quality is good.Wall Scoring BaselineScore Index: 1.12The following segments are hypokinetic: apical septal and apex.All other segments are normal. Islam [facility] 12 [id number] 20:27:17 Test Item Value Reference Range Interpretation Comments Ventricular rate (test code = 253) Atrial rate (test code = 255) KS interval (test code = 266) QRSD interval (test code = 260) QT interval (test code = 264) QTC interval (test code = 265) P axis 1 (test code = 267) QRS axis 1 (test code = 268) T wave axis (test code = 270) EKG impression (test Normal sinus code = 273) rhythm-Right bundle branch block-Inferior infarct (cited 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-2017)-Anterosep yadira infarct (cited 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-2017)-Abnormal ECG-In automated comparison with ECG of 07-MAR-2021 10:13,-Right bundle branch block has replaced Incomplete right bundle branch block-Questionable change in initial forces of Septal leads- [facility] [id number] 23:54:41 Test Item Value Reference Range Interpretation Comments POC glucose (test code 75 mg/dL 65-99 Opera cruz Name: Mary = 76187-9) Park ID: [id number] [facility]-CoV-2 (COVID-19) RNA [Presence] in Respiratory specimen by LUANN with probe [id number] 19:09:23 Test Item Value Reference Range Interpretation Comments SARS-CoV-2 (COVID-19) RNA Not detected Not-Detected [Presence] in Respiratory specimen by LUANN with probe detection (test code = 03641-4) 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 (test code = 43078-0) Whether the patient has symptoms related to condition of interest (test code = 78258-8) Patient was hospitalized because of this condition (test code = 51477-4) Whether the patient was admitted to intensive care unit (ICU) for condition of interest (test code = 57264-9) Whether patient resides in a congregate care setting (test code = 95635-3) [facility]-CoV-2 (COVID-19) RNA [Presence] in Respiratory specimen by LUANN with probe [id number] 21:10:32 Test Item Value Reference Range Interpretation Comments SARS-CoV-2 (COVID-19) RNA Not detected Not-Detected [Presence] in Respiratory specimen by LUANN with probe detection (test code = 87861-8) 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 (test code = 56937-8) Whether the patient has symptoms related to condition of interest (test code = 64463-2) Patient was hospitalized because of this condition (test code = 36261-4) Whether the patient was admitted to intensive care unit (ICU) for condition of interest (test code = 28232-1) Whether patient resides in a congregate care setting (test code = 09229-6) [facility] Coronavirus 2019 [id number] 19:04:00 Test Item Value Reference Range Interpretation [...] for the identification of SARS-CoV-2 RNA usingthe SalonBookr M2000 Sy stem under the FDA Emergen cy UseAuthorizatio n. The testing is perf ormed by personneltrajannet d in the procedures for the SalonBookr M2000 molecular diagnostic SARS-CoV-2 assa y in vitro. BASIC METABOLIC [id number] 12:29:00 Test Item Value Reference Range Interpretation [...] 9.2 mg/dL 8.0-10.5 N CA) CBC W/AUTO [id number] 12:11:00 Test Item Value Reference Range Interpretation [...] REQUIRED (test code NO = MDIFF) PLT [id number] 12:11:00 Test Item Value Reference Range Interpretation Comments PLATELET ESTIMATE (test code 84-105 THOUSAND ADEQUATE = PLTEST) PROTHROMBIN [id number] 11:58:00 Test Item Value Reference Range Interpretation Comments PROTHROMBIN TIME 13.8 SECONDS 9.3-12.9 H PATIENT (test code = PTP) INTERNATIONAL NORMAL 1.3 0.8-1.2 H TARGET INR BY RATIO (test code = INDICATIO N Indication INR) INR1. Prophylax is of venous thrombos is 2.0 - 3.0 (orthoped ic surgery), Proph ylaxis of venous throm bosis (other than hig h-risk surgery), Treat ment of Deep Vein Thrombosis/Pulm onary Embolism, Preve ntion of systemic emb olism - Tissue heart va lves, Acute Myocardia l Infarction (to prevent systemic emboli sm), Valvular heart disease, Atrial Fibrillation, Bileaflet mecha nical valve in aortic position.2. Mec hanical prosthetic valv es (high risk), 2. 5 - 3.5 Presence of Lup us Anticoagulant o r Antiphospholipi d Antibodies, Pre vention of systemic emb olism - Acute Myocardia l Infarction (to prevent recurrent infar ct). CBC W/AUTO [id number] 11:50:00 Test Item Value Reference Range Interpretation [...] REQUIRED (test code NO = MDIFF) PLT [id number] 11:50:00 Test Item Value Reference Range Interpretation Comments PLATELET ESTIMATE (test code = THOUSAND ADEQUATE PLTEST) CBC W/AUTO [id number] 11:50:00 Test Item Value Reference Range Interpretation [...] REQUIRED (test code NO = MDIFF) PLT [id number] 11:50:00 Test Item Value Reference Range Interpretation Comments PLATELET ESTIMATE (test code = THOUSAND ADEQUATE PLTEST) CBC W/AUTO [id number] 12:22:00 Test Item Value Reference Range Interpretation [...] MDIFF) CONSISTE NT WITH AUTO DIFF. PLT [id number] 12:22:00 Test Item Value Reference Range Interpretation Comments PLATELET ESTIMATE (test code 80-100 THOUSAND ADEQUATE = PLTEST) CBC W/AUTO [id number] 12:18:00 Test Item Value Reference Range Interpretation [...] MDIFF) CONSISTE NT WITH AUTO DIFF. PLT [id number] 12:18:00 Test Item Value Reference Range Interpretation Comments PLATELET ESTIMATE (test code = THOUSAND ADEQUATE PLTEST) CBC W/AUTO [id number] 12:18:00 Test Item Value Reference Range Interpretation [...] MDIFF) CONSISTE NT WITH AUTO DIFF. 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 [facility] CBC W/AUTO [id number] 08:13:00 Test Item Value Reference Range Interpretation [...] REQUIRED (test code = MDIFF) COMPREHENSIVE METABOLIC [id number] 07:47:00 Test Item Value Reference Range Interpretation [...] TOTAL (test code = ALKP) THROMBOPLASTIN TIME [id number] 07:38:00 Test Item Value Reference Range Interpretation Comments THROMBOPLASTIN TIME 42.3 Seconds 25.0-39.5 H Therape utic Range: PARTIAL (test code = 50.4 - 88.3 Seconds PTT) Effective 12/06/2018 - XR CHEST 1 [id number] 00:00:00 [facility] 1955 Sex: M FAX: Real Freeman MD [phone] [place]: St: ADM FAX: José Carmona MD [phone] FAX: Loyd Emerson [facility] [phone] Name: SIMONE WALLER [facility] : 1955 Age/S: 65/M [address] [place] [address] Unit #: [id number] Loc: [place] [address] Phys: Loyd Emerson [facility] Acct: [id number] Dis Date: Status: ADMIN PHONE #: [phone] Exam Date: 03/26/2021 1347 FAX #: [phone] Reason: s/p watchman EXAMS: CPT CODE: [id number] XR CHEST 1 V 53175 PROCEDURE INFORMATION: Exam: XR Chest Exam date and time: 03/26/2021 12:45 PM Age: 65 years old Clinical indication: Condition or disease; Other: Watchman; Additional info: S/P watchman TECHNIQUE: Imaging protocol: XR of the chest. Views: 1 view. Other technique: APportable chest obtained with the patient semi upright. COMPARISON: DX XR CHEST 2 V 03/24/2021 11:57 AMFINDINGS: Limitations: Technique and patient body habitus. Lungs: Diffuse hazy pulmonary opacities bilateral more pronounced in the central lung zones. The pulmonary vasculature is partially obscured.Pleural spaces: Moderate volume bilateral pleural effusions. No [...] silhouette. at 1449 Reported and signed by: Dayna Goldberg PAGE 1 Signed Report (CONTINUED) FAX: Real Chou MD [phone] [place]: St: ADM FAX: José Carmona MD [phone] FAX: Loyd Emerson [phone] Name: SIMONE WALLER [facility] : 1955 Age/S: 65/M [address] [place] [address] Unit #: [id number] Loc: [place] [address] Phys: Loyd Emerson Acct: [id number] Dis Date: Status: ADM IN PHONE #: [phone] Exam Date: FAX #: [phone] Reason: s/p watchman EXAMS: CPT CODE: [id number] XR CHEST 1 V 97889 (Continued) CC: Real Olson MD; José Zimmerman MD; Loyd Emerson Technologist: RT Sugar(R) Trnscrd Date/Time/By: 03/26/2021 (1441) : By: Timothy Orig Print D/T: S: 03/26/2021 (8575) PAGE 2 Signed ReportNovel Coronavirus 2019 [id number] 10:18:00 Test Item Value Reference Range Interpretation [...] for the identification of SARS-CoV-2 RNA usingthe SalonBookr M2000 Sy stem under the FDA Emergen cy UseAuthorizatio n. The testing is perf ormed by personneltrajannet d in the procedures for the SalonBookr M2000 molecular diagnostic SARS-CoV-2 assa y in vitro. BASIC METABOLIC [id number] 13:55:00 Test Item Value Reference Range Interpretation [...] code = 9.2 mg/dL 8.0-10.5 N CA) [id number] 13:55:00 Test Item Value Reference Range Interpretation Comments PREALBUMIN (test code = PREALB) 22.2 mg/dL 16.0-40.0 N BASIC METABOLIC [id number] 13:54:00 Test Item Value Reference Range Interpretation [...] code = 9.2 mg/dL 8.0-10.5 N CA) [id number] 13:54:00 Test Item Value Reference Range Interpretation Comments PREALBUMIN (test code = PREALB) mg/dL 16.0-40.0 CBC W/AUTO [id number] 13:48:00 Test Item Value Reference Range Interpretation [...] MDIFF) CONSISTE NT WITH AUTO DIFF. PROTHROMBIN [id number] 13:29:00 Test Item Value Reference Range Interpretation Comments PROTHROMBIN TIME 11.1 SECONDS 9.3-12.9 N PATIENT (test code = PTP) INTERNATIONAL NORMAL 1.0 0.8-1.2 N TARGET INR BY RATIO (test code = INDICATIO N Indication INR) INR1. Prophylax is of venous thrombos is 2.0 - 3.0 (orthoped ic surgery), Proph ylaxis of venous throm bosis (other than hig h-risk surgery), Treat ment of Deep Vein Thrombosis/Pulm onary Embolism, Preve ntion of systemic emb olism - Tissue heart va lves, Acute Myocardia l Infarction (to prevent systemic emboli sm), Valvular heart disease, Atrial Fibrillation, Bileaflet mecha nical valve in aortic position.2. Mec hanical prosthetic valv es (high risk), 2. 5 - 3.5 Presence of Lup us Anticoagulant o r Antiphospholipi d Antibodies, Pre vention of systemic emb olism - Acute Myocardia l Infarction (to prevent recurrent infar ct). CBC W/AUTO [id number] 13:27:00 Test Item Value Reference Range Interpretation [...] code = MDIFF) - XR CHEST 2 [id number] 00:00:00 [facility] 1955 Sex: M FAX: Real Freeman MD [phone] [place]: St: PRE FAX: Y José Zimmerman MD [phone] Name: SIMONE WALLER [facility] [place] : 1955 Age/S: 65/M [address] [place] [address] Unit #: [id number] Loc: [place] [address] Phys: José Zimmerman MD Acct: [id number] Dis Date: Status: PRE [facility] PHONE #: [phone] Exam Date: 03/24/2021 1250 FAX #: [phone] Reason: WATCHMAN EXAMS: CPT CODE: [id number] XR CHEST 2 V 17690 PROCEDURE INFORMATION: Exam: XR Chest Exam date and time: 03/24/2021 11:57 AM Age: 65 years old Clinicalindication: Pre-operative exam; Respiratory screening exam; Additional info: [...] versus pleuroparenchymal thickening. 2. Low lung volumes with bibasilar linear atelectasis. at 1243 Reported and signed by: Lebron Raza M.D. CC: Real Olson MD; José Zimmerman MD Technologist: Abigail Aponte RT(R)(M) Trnscrd Date/Time/By: 03/24/2021 (1246) : By: [email or web address] Orig Print D/T: S: 03/25/2021 (0706) PAGE 1 Signed ReportECG 12 [id number] 23:33:44 Test Item Value Reference Range Interpretation Comments Ventricular rate (test code = 253) Atrial rate (test code = 255) KS interval (test code = 266) QRSD interval [...] change in initial forces of Lateral leads- [facility] DallasTransthoracic Echocardiogram Complete, (w Contrast, Strain and 3D if needed)2021-02-20 22:07:06 Test Item Value Reference Range Interpretation Comments AoV Area, Vmax (test 3.91 cm2 code = 6393096583) AoV Area, VTI (test 5.59 cm2 code = 6463492233) AoV Mean PG (test code mmHg = 2271758975) AoV Peak PG (test code mmHg = 9694206367) AoV Vmax (test code = 1.15 m/s 6830711576) AoV VTI (test code = 0.00 m 8332882111) Left Atrium Dimension 4.01 cm Anterior (test code = 3966911067) LV,d (test code = 5.45 cm 8416365992) LV EF,2D (test code = 52.20 % 9982033611) LV,s (test code = 4.26 cm 3241626320) LVOT area (test code = 3.11 cm2 4834269835) LVOT Diam,S (test code 1.99 cm = 5357621953) LVOT Vmax (test code = 0.99 m/s 2600743610) LVOT VTI (test code = 0.19 m 8447885510) PV Pk Grad (test code = mmHg 3098485034) PV VMAX (test code = 1.13 m/s 0571352691) RVOT Vmax (test code = 0.80 m/s 3703132762) MV E A ratio (test code = 8399954469) MR Vmax (test code = 1.82 m/s 0826336306) E wave decelartion time msec (test code = 3052132386) MV Peak A Elliott (test 0.91 m/s code = 8358858824) MV valve area p 1/2 3.68 cm2 method (test code = 0376151496) MV Peak E Elliott (test 0.81 m/s code = 5129610452) MV stenosis pressure 59.76 ms 1/2 time (test code = 9425013078) LVOT stroke volume 0.59 cm3 (test code = 4831696269) AV LVOT peak gradient mmHg (test code = 8038360189) Ascending aorta (test 3.70 cm code = 7815057545) MV mean gradient (test mmHg code = 8561439995) LV SYS VOL (test code = 81.23 ml 4707709995) LV COLE VOL (test code 144.20 ml = 3095792584) LA area s A4C (test 21.35 cm2 code = 4613838392) LV SV Teich 2D (test 62.97 ml code = 8157420509) LV Vol s Teich PSAX 81.23 ml (test code = 0564442775) MR peak grad (test code mmHg = 5069975760) MV Vmax (test code = 1.02 m 6226085107) MV VTI Tips (test code 0.29 m = 0644665586) RVOT pk grad (test code mmHg = 7790611292) AoV Vmn (test code = 5966080841) LV FS Teich 2D (test code = 8434787999) MV AE ratio (test code = 5577570808) LV FS Cube 2D (test code = 6850867483) LVOT Vmn (test code = 0287314936) Aov area Vmn (test code 5.07 cm2 = 2882828137) LVOT mean grad (test mmHg code = 1855665320) MAX Pred HR (test code = 1793838538) 85 of MPHR (test code = 0503270756) Calc MPHR (test code = bpm 4908213892) LV SV Cube 2D (test 84.38 ml code = 6699440476) LV vol d cube 2D (test 161.67 ml code = 8973518981) LV vol s cube 2D (test 77.28 ml code = 7240173068) MV Decel slope (test 3.93 m/s2 code = 6129683860) Pred Exer Dur R1 (test code = 4485700256) Pred METS R1 (test code = 4459744023) LA Vol MOD A4C (test 60.41 ml code = 7038460193) Velocity Ratio (V1/V2) 0.86 m/s (test code = 4689) EF (test code = 43.67 % 6182913727) E/A ratio (test code = 8062891253) LVOT VTI (CM) (test 19.00 cm code = 4345482160) YARI (test code = YARI) Left Ventricular [...] localized pericardial effusion without evidence of tamponade. [facility] Thoracentesis With [id number] 18:26:53Ultrasound- guided Thoracentesis 02/19/2021 Pre-Procedure Diagnosis: Pleural effusionPost- procedure Diagnosis: Pleural effusion Motorcycle Mechanic: Dayna IsraelPersonal protective equipment: Surgical Mask; Sterile [...] sterile fashion. Using real-time ultrasound guidance a 5-Indonesian one-step centesis needle was advanced into the right thoracic cavity. An image was stored in the electronicmedical record. Serous fluid was aspirated. At the end of the procedure the catheter was removed daniel sterile dressing applied. The patient tolerated the procedure well. No complications. Findings:Large volume effusion. Impression:Successful ultrasound-guided right thoracentesis with removal of 1800 mL of fluid. - Interface, Radiology Results Incoming - 02/19/2021 1:29 PM CDT Ultrasound- guided Thoracentesis 02/19/2021re-Procedure Diagnosis: Pleural effusionPost- procedure Diagnosis: Pleural effusionOperator: Dayna IsraelPersonal protective equipment: Surgical Mask; Sterile Surgical Gown; Sterile Gloves; Lead Glasses.Sedation: None. 1%lidocaine local anesthesia.Estimate blood loss: <5 mL Blood administered: NoneComplications: NoneImplants/Grafts: NoneSpecimen: NoneProcedure:Informed consent was obtained and the patient positionedin a sitting position in the ultrasound suite. A timeout was performed, followed by preliminary ultrasound of the chest. The back was prepped and draped in standard sterile fashion.Using real-time ultrasound guidance a 5-Indonesian one-step centesis needle was advanced into the right thoracic cavity. An image was stored in the electronic medical record. Serous fluid was aspirated. At the end of the procedure the catheter was removed and a sterile dressing applied. The patient tolerated the procedure well. No complications.Findings:Large volume effusion.Impression:Successful ultrasound-guided right thoracentesis with removal of 1800 mL of fluid. -[facility] Chest 1 [facility] [id number] 14:21:45SINGLE VIEW CHEST, 02/19/2021 Clinical History: Pleural effusion; status post thoracentesis.Technique: Portable AP chest.Comparison: 02/17/2021 Impression:1.Interval right thoracentesis with complete evacuation of fluid. No pneumothorax.2.Small to moderate left effusion.3.Basilar atelectasis.4.Cardiomegaly with sequela of sternotomy.5.No overt edema. Normal central vasculature caliber for technique.6.Demineralized skeleton with left shoulder arthroplasty. [facility], Radiology Results Incoming - 02/19/2021 9:24 AM CDT SINGLE VIEW CHEST, 02/19/2021linical History: Pleural effusion; status post thoracentesis.Technique: Portable AP chest.Comparison: 02/17/2021Impression:1.Interval right thoracentesis with complete evacuation of fluid. No pneumothorax.2.Small to moderate left effusion.3.Basilar atelectasis.4.Cardiomegaly with sequela of sternotomy.5.No overt edema. Normal central vasculature caliber for technique.6.Demineralized skeleton with left shoulder arthroplasty.[facility] [id number] 14:50:42 Test Item Value Reference Range Interpretation Comments Case number (test code = [id number]) Surgical pathology See link below for report (test code = PDF Lab Report 2255) Result status (test code This is Final Report = [id number]) for [id number] [facility] DallasCT Chest Wo [id number] 07:44:34CT CHEST WO CONTRAST CLINICAL INDICATION: Abnormal xray - pleural effusion TECHNIQUE: Multidetector C T imaging of the chest was performed without intravenous contrast with multiplanar reconstructions. CT imaging was performed with iterative reconstruction technique and/or automated exposure control toreduce radiation dose. COMPARISON: 02/12/2021 IMPRESSION: The lack [...] upper lobe, there is a 0.7 cm nodule. Heart and pericardium: Mild to moderate cardiomegaly. Extensive [...] without adenopathy. 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 Mild atherosclerotic vascular calcifications are identified. Upper abdomen: Simple cyst is seen superior pole right kidney. Calcified granulomata are seen of the spleen. Diverticulosis is seen of large bowel. Bones: Again seen are multiple acute-subacute left-sided rib fractures. There is some associated mild pleural thickening. Mild degenerative change of the thoracolumbar spine. Hemangioma are seen of the lower cervical and thoracic spine. Soft tissues: Unremarkable. Summary: Congestive heart failure is seen with mild to moderate cardiomegaly, mild vascular congestion/edema, and moderate to large right and small left pleural effusion. The size of the effusions have bothdecreased compared with 02/12/2021. Moderate pericardial effusion is [...] the root. Multiple acute-subacute left-sided rib fractures. [id number] Interface, Radiology Results Incoming - 02/18/2021 2:[address] CHEST WO CONTRASTCLINICAL INDICATION: Abnormal xray - pleural effusionTECHNIQUE: Multidetector CT imaging of the chest was performed without intravenous contrast with multiplanar reconstructions. CT imaging was performed with iterative reconstruction technique and/or automated exposure control to reduce radiation dose.COMPARISON: 02/12/2021 IMPRESSION:The lack of intravenous contrast partially limits evaluation.Lungsand large airways: Moderate to large right pleural effusion and small left pleural effusion. Bibasilar atelectasis/scarring. Groundglass densities are seen in the pulmonary parenchyma with interlobularseptal thickening, compatible with mild vascular congestion/edema. No pneumothorax. Trachea and mainstem bronchi are patent.In the left upper lobe, there is a 0.7 cm nodule.Heart and pericardium: Mild to moderate cardiomegaly. Extensive coronary artery calcifications. Moderate aortic valve and mild tomoderate mitral valve calcifications. Moderate pericardial effusion.Mediastinum and [...] of large bowel.Bones: Again seen are multiple acute-subacute left-sided rib fractures. There is some associated mild pleural thickening.Mild degenerative change of the thoracolumbar spine. Hemangioma are seen of thelower cervical and thoracic spine.Soft tissues: Unremarkable.Summary:Congestive heart failure is seen with mild to moderate cardiomegaly, mild vascular congestion/edema, and moderate to large right and small left pleural effusion. The size of the effusions have both decreased compared with 02/12/2021.Moderate pericardial effusion is noted, similar to previous exam.A 0.7 cm nodule seen in the left upper lobe. A six-month follow-up CT chest is advised to assess stability.Indeterminant nodule in the right lobe of the thyroid gland would be better assessed with nonemergent thyroid ultrasound.Ascending aorta is aneurysmal measuring up to 4.5 cm at the root.Multiple acute-subacute left-sided rib fractures.[facility]ET8Sdwqscvtw HospitalXR Chest 1 [id number] 00:16:21EXAMINATION: XR CHEST 1 VW CLINICAL HISTORY: Post Thoracentesis COMPARISON: 02/16/2021 IMPRESSION: A frontal radiograph of the chest is reviewed. The cardiomediastinal silhouette is unchanged. A large left pleural effusion is nearly completely resolved following thoracentesis. There is no pneumothorax.There is improved aeration in the left lung base. A small right-sided pleural effusion with right basilar volume loss and/or consolidation is unchanged. The patient has undergone median sternotomy. Hardware from left shoulder arthroplasty is noted. [facility]-[id number] Interface, Radiology Results 02/17/2021 7:19 PM CDT EXAMINATION: XR CHEST 1 VWCLINICAL HISTORY: Post ThoracentesisCOMPARISON: 02/16/2021IMPRESSION:A frontal radiographof the chest is reviewed. The cardiomediastinal silhouette is unchanged. A large left pleural effusion is nearly completely resolved following thoracentesis. There is no pneumothorax. There is improvedaeration in the left lung base. A small right- sided pleural effusion with right basilar volume loss and/or consolidation is unchanged. The patient has undergone median sternotomy. Hardware from left marjan ulder arthroplasty is noted.[facility]-[id number] HospitalTransthoracic Echocardiogram Complete, (w Contrast, Strain and 3D if needed)2021-02-17 19:40:14 Test Item Value Reference Range Interpretation Comments Velocity Ratio (V1/V2) 0.55 m/s (test code = 4689) IVS,d (test code = 1.31 cm 5929030095) Ao root annulus (test 4.52 cm code = 7543485769) EF (test code = 51.16 % 8915957113) Ascending aorta (test 4.49 cm code = 8200981594) LVPWD,d (test code = 1.38 cm 3189561845) AoV Mean PG (test code mmHg = 6030859397) AV LVOT peak gradient mmHg (test code = 7964380044) MV valve area p 1/2 6.45 cm2 method (test code = 2537318861) PV Pk Grad (test code mmHg = 4869859176) E/A ratio (test code = 4916688979) E wave decelartion msec time (test code = 3835157929) LVOT Diam,S (test code 2.64 cm = 0639190559) LVOT area (test code = 5.47 cm2 1033595911) LVOT Vmax (test code = 0.68 m/s 9397999131) RVOT Vmax (test code = 0.83 m/s 3929346352) LVOT stroke volume 0.60 cm3 (test code = 0235022375) AoV Peak PG (test code mmHg = 9757875308) MV Peak E Elliott (test 0.62 m/s code = 2832562290) MV stenosis pressure 34.12 ms 1/2 time (test code = 8149032060) MV Peak A Elliott (test 1.05 m/s code = 0998697590) Ao Root Diameter (test 4.10 cm code = 3648312705) AoV Area, Vmax (test 3.04 cm2 code = 4437881062) AoV Area, VTI (test 2.85 cm2 code = 7795980163) AoV Vmax (test code = 1.23 m/s 3248609278) IVS/LVPW,2D (test code = 9150432805) Left Atrium Dimension 4.41 cm Anterior (test code = 7531760755) LV,d (test code = 4.97 cm 6578752434) LV,s (test code = 3.67 cm 5118229844) PV VMAX (test code = 0.95 m/s 4572205942) RVSP (TR) (test code = mmHg 1746863499) TR Vpeak (test code = 2.00 mm/s 3545271275) MV E A ratio (test code = 4493744155) RA pressure (test code mmHg = 6934113475) TR pk grad (test code mmHg = 5735763782) RVSP (test code = mmHg 8260472265) Ao Root Diameter (test 4.10 cm code = 9179121764) LV SYS VOL (test code 56.84 ml = 5680948970) LV COLE VOL (test code 116.37 ml = 3415377703) LA area s A4C (test 32.56 cm2 code = 5593473192) LA Vol MOD A4C (test 126.80 ml code = 4886887419) LV SV Teich 2D (test 59.53 ml code = 7024903454) LV Vol s Teich PSAX 56.84 ml (test code = 3401933648) RVOT pk grad (test mmHg code = 8032258527) AoV Vmn (test code = 7431971532) LA Ao Ratio Mmode (test code = 5399139496) LV FS Cube 2D (test code = 1232509916) LV FS Teich 2D (test code = 8497527628) LVOT VTI (CM) (test 11.00 cm code = 9872776013) AoV VTI (test code = 0.22 m 2373840245) LV EF,2D (test code = 59.78 % 2747984097) LVOT VTI (test code = 0.11 m 7628789424) MV AE ratio (test code = 3444155970) LVOT Vmn (test code = 5171357949) Aov area Vmn (test 2.55 cm2 code = 3702525845) LVOT mean grad (test mmHg code = 4000956716) MAX Pred HR (test code = 5541221302) 85 of MPHR (test code = 1787303895) Calc MPHR (test code = bpm 1544071610) LV SV Cube 2D (test 73.20 ml code = 0145176232) LV vol d cube 2D (test 122.45 ml code = 9974145302) LV vol s cube 2D (test 49.25 ml code = 5416863651) MV Decel slope (test 5.24 m/s2 code = 2711800573) Pred Exer Dur R1 (test code = 3390148384) Pred METS R1 (test code = 6709350987) ADD (test code = ADD) Addendum by [...] chest without contrast for further diffrerential diagnosis. [facility] DallasPrepare RBC, 2 [id number] 13:54:00 Test Item Value Reference Range Interpretation Comments Product name (test code Red Blood Cells -1, = 25) Leukored Unit number (test code = [id number] 7053888) Product code (test code N6937A83 = 3092) Dispense status (test Transfused code = 24) Blood expiration date (test code = 302) Blood type code (test code = 308) Blood type (test code = O POSITIVE 1314) Compatibility (test code Compatible = 6400) [facility] ubawwj2021-63-06 03:28:00 Test Item Value Reference Range Interpretation Comments ABO grouping (test code = 883-9) O Rh type (test code = 21478-1) POS Antibody screen (gel) (test code = NEG 890-4) [facility] DallasCytology (non-gynecological) chpyhsf1254-30-89 20:07:40 Test Item Value Reference Range Interpretation Comments Case number (test code = [id number]) Cytology See link below for (non-gynecological) PDF Lab Report report (test code = 1178) Result status (test code This is Final Report = [id number]) for [id number] [facility] DallasUrine [id number] 13:11:52 Test Item Value Reference Range Interpretation Comments Urine culture (test SEE COMMENT Bacteriu boubacar screen code = 5975885) negative. [facility] ED Preliminary Interpretation - Not an [id number] 06:56:16Veronica Augustine MD 02/13/2021 3:05 [facility] Preliminary Interpretation - Not an OrderPerformed by: Veronica Augustine MDAuthorized by: Veronica Augustine MD ECG reviewed by ED Physician in the absence of a finisher cold rolling: yes Previous ECG: Previous ECG: UnavailableInterpretation: Interpretation: non-specific Rate: ECG rate: 76 ECG rate assessment: normal Rhythm: Rhythm: sinus rhythm Ectopy: Ectopy: none QRS: QRS axis: Normal QRS intervals: NormalConduction: Conduction: normal STsegments: ST segments: Non-specificT waves: T waves: non-specificRAD, CHEST, 1 VIEW, NON [id number] 13:19:00Reason for exam:->Post CT removalShould this be performed at the bedside?->Yes [facility] 1955 Sex: MFINAL REPORT RAD, CHEST, 1 VIEW, NON DEPT INDICATION: Post CT removal COMPARISON: Priorday's exam FINDINGS: Portable frontal view of the chest. IMPRESSION: Limited by underpenetration.Support Lines: Thoracostomy tube on the left has been removed. Lungs and pleura: Lungs remain hypoinflated. Small left effusion. Trace residual left pneumothorax. No pneumothorax.Heart and mediastinum: Stable contours. Stable surgical changes.Additional findings: None. Signed: JR Culver Robert MDReport Verified Date/Time: 08/19/2020 13:19:30 Reading Location: [facility] Radiology Reading Room [facility] Metabolic Panel 2020-08-19 05:05:00 Test Item Value Reference Range Interpretation Comments Sodium (test code = 138 meq/L 953-906 9836-2) Potassium (test code = 3.9 meq/L 3.5-5.1 2823-3) Chloride (test code = 105 meq/L 98-107 2075-0) CO2 (test code = 22 meq/L 22-29 2028-9) BUN (test code = 49 mg/dL 7-21 H 3094-0) Creatinine (test code 6.96 mg/dL 0.57-1.25 H = 2160-0) Glucose (test code = 84 mg/dL 70-105 2345-7) Calcium (test code = 8.4 mg/dL 8.4-10.2 33222-1) EGFR (test code = 8 mL/min/1.73 [place] [address]-8) NOT ACCURATE CREATININE CLEARANCE IN PREDICTING GLOMERULAR FILTRATION RATE . ESTIMATED GFR I S NOT APPLICABLE FOR DIALYSIS PATIENTS. YARI (test code = YARI) Motorcycle Mechanic ID - EDASI Lab Interpretation Abnormal (test code = 82655-5) [facility] CenterBASIC METABOLIC [id number] 05:05:00 Test Item Value Reference Range Interpretation [...] S NOT APPLICABLE FOR DIALYSIS PATIEN TS. Motorcycle Mechanic ID - SEIMHCquuhebua4865-27-65 04:58:00 Test Item Value Reference Range Interpretation Comments Magnesium (test code = 2.1 mg/dL 1.6-2.6 97408-8) YARI (test code = YARI) Motorcycle Mechanic ID - EDASI Lab Interpretation (test Normal code = 19326-0) [facility] CenterPhosphorus2020-12-28 04:58:00 Test Item Value Reference Range Interpretation Comments Phosphorus (test code = 4.0 mg/dL 2.3-4.7 2777-1) YARI (test code = YARI) Motorcycle Mechanic ID - EDASI Lab Interpretation (test Normal code = 81287-8) [facility]EastMnjwdjZKSZELBWU8987-11-92 04:58:00 Test Item Value Reference Range Interpretation Comments MAGNESIUM (BEAKER) (test code = 2.1 mg/dL 1.6-2.6 627) Motorcycle Mechanic ID - [id number] 04:58:00 Test Item Value Reference Range Interpretation Comments PHOSPHORUS (BEAKER) (test code = 4.0 mg/dL 2.3-4.7 604) Motorcycle Mechanic ID - EDASICBC (Hemogram only)2020-08-19 04:37:00 Test Item Value Reference Range Interpretation Comments WBC (test code = 6690-2) 7.5 See_Comment [A utomated message] The system [employer] generated this result transmitted ref erence range: 3.5 - 10 .5 K/L. The refe rence range was not u sed to interpret this result as normal/abnor mal. RBC (test code = 789-8) 3.01 See_Comment L [Au tomated message] The system [employer] generated this result transmitted ref erence range: 4.63 - 6 .08 M/L. The refe rence range was not u sed to interpret this result as normal/abnor mal. MCHC (test code = 786-4) 31.5 See_Comment L [A utomated message] The system [employer] generated this result transmitted ref erence range: [...] L [Aut omated message] 777-3) The system [employer] generated this result transmitted ref erence range: 150 - 45 0 K/CU MM. The referen ce range was not u sed to interpret this result as normal/abnor mal. MPV (test code = 11.5 fL 9.4-12.4 53775-4) nRBC (test code = 413) 0 See_Comment [Aut omated message] The system [employer] generated this result transmitted ref erence range: 0 - 0 /1 00 WBC. The refere nce range was not u sed to interpret this result as normal/abnor mal. Lab Interpretation (test Abnormal code = 43177-5) [facility] (HEMOGRAM ONLY)2020-08-19 04:37:00 Test Item Value [...] = 413) RAD, CHEST, 1 VIEW, NON [id number] 07:15:00Reason for exam:->chest tube [facility] 1955 Sex: [...] Santos Verified Date/Time: 08/18/2020 07:15:41 Reading Location: [address] Ortho Consult Reading Room BASIC METABOLIC [id number] 06:04:00 Test Item Value Reference Range Interpretation [...] S NOT APPLICABLE FOR DIALYSIS PATIEN TS. Motorcycle Mechanic ID - [id number] 05:57:00 Test Item Value Reference Range Interpretation Comments MAGNESIUM (BEAKER) (test code = 2.1 mg/dL 1.6-2.6 627) Motorcycle Mechanic ID - [id number] 05:57:00 Test Item Value Reference Range Interpretation Comments PHOSPHORUS (BEAKER) (test code = 3.4 mg/dL 2.3-4.7 604) Motorcycle Mechanic ID - EDASICBC (HEMOGRAM ONLY)2020-08-18 05:24:00 Test [...] 0-0 (test code = 413) Prepare Leuko-Red [id number] 23:54:00 Test Item Value Reference Range Interpretation Comments CROSSMATCH (test code = 2264) COMPATIBLE Unit ABO (test code = O Pos 8957609) UNIT NUMBER (test code = [id number] 934-0) Status (test code = 6551716) [facility] Product (test code RED BLOOD CELLS = 2263) PRODUCT CODE (test code = C9991T59 933-2) [facility] Center[facility] Leuko-Red [id number] 23:54:00 Test Item Value Reference Range Interpretation Comments Unit ABO (test code = 0711616) O Neg UNIT NUMBER (test code = [id number] 934-0) Status (test code = 5219740) [facility] Product (test code PLATELETS = 2263) PRODUCT CODE (test code = I2741B66 933-2) [facility] CenterPOC-Glucose [id number] 18:47:00 Test Item Value Reference Range Interpretation Comments POC-Glucose Meter (test 178 mg/dL 70-110 H : TE STED AT [facility] code = 1538) [address] [facility], 770 30: Motorcycle Mechanic/Techni radha ID = [id number] for Lexus Bynum Lab Interpretation (test Abnormal code = 14929-5) [facility] CenterPOCT-GLUCOSE [id number] 18:47:00 Test Item Value Reference Range Interpretation Comments POC-GLUCOSE METER 178 mg/dL 70-110 H : TESTED A T [facility] 6720 (BEAKER) (test code = [facility], 1538) [address]: Motorcycle Mechanic/Techni radha ID = [id number] for Lexus Oleary POCT-GLUCOSE [id number] 12:32:00 Test Item Value Reference Range Interpretation Comments POC-GLUCOSE METER 87 mg/dL 70-110 : [facility] (test code = [facility] R [facility], 1538) [address]: Motorcycle Mechanic/Techni radha ID = [id number] for JUDAH N, TANNER SARS-CoV2/RT-PCR (Asymptomatic ONLY)2020-08-17 10:34:00 Test Item Value Reference Range Interpretation Comments SARS-COV2/RT-PCR Negative Not Detected, (test code = Negative, See 70445-7) external report for linked test SARS-COV-2 [facility] RAJAT PERFORMING LAB (test code = 19530-8) YARI (test code = Negative result for [...] of the Act. Fact Sheet for Healthcare Providers:https://www.Blue Source idel.[employer]/sites/default/f jose/product/documents/F act_Sheet_HC_Providers_L xhc_LUGO-SkK-1.pdf Fact Sheet for Healthcare Patients:https://www.chad del.com/sites/default/fi les/product/documents/Fa ct_Sheet_Patients_Lyra_S ARS-CoV-2.pdf Performing Laboratory:[facility] [place] [address] [facility] ([facility])2020-08-17 10:34:00 Test Item Value Reference Range Interpretation Comments SARS-COV2/RT-PCR (test Negative Not Detected, Negative, code = 1374665) See external report for linked test SARS-COV-2 PERFORMING LAB [facility] RAJAT (test code = 2224983) Negative result for this test determines that [...] individuals suspected of COVID-19 by their healthcare provider.This test [...] justifying the authorization of the emergency use ofin vitro diagnostic tests for detection and/or diagnosis of COVID-19 is terminated under Section 564(b)(2) of the Act or the EUA is revoked under Section 564(g) of the Act.Fact Sheet for Healthcare Prov iders:https://www.OrderingOnlineSystem.com.[employer]/sites/default/files/product/documents/Fact_Sheet_HC _Racxhvcak_Sqkb_VRSI-GdL-9.pdfFact Sheet for Healthcare Patients:https://www.OrderingOnlineSystem.com.com/sites/default/files/product/docume nts/Ntpk_Rrzma_Rhjssxdm_Oyyv_GQUQ-QvI-6.pdfPerforming Laboratory:[place] [address], [place] [address]JJG, CHEST, 1 VIEW, NON [id number] 09:48:00Reason for exam:->exam for possible CT removal [facility] : 1955 Sex: MFINAL REPORT TECHNIQUE: Frontal view of the chest. INDICATION: exam for possible CT removal COMPARISON: 08/16/2012. FINDINGS: LINES/TUBES: There is a left basilar chest tube.. LUNGS: Bilateral pleural and parenchymal opacities are not significantly changed. Unchanged trace left-sided pneumothorax. HEART AND MEDIASTINUM: The cardiomediastinal silhouette is enlarged. Post surgical changes from median sternotomy.. SOFT TISSUES AND BONES: Unremarkable. IMPRESSION:No interval change. Persistent trace left apical pneumothorax.. Signed: Cindy Kevin Verified Date/Time: 08/17/2020 09:48:57 Reading Location: [address] Body Reading Room POCT-GLUCOSE [id number] 08:35:00 Test Item Value Reference Range Interpretation Comments POC-GLUCOSE METER 83 mg/dL 70-110 : TESTED A T [facility] 6720 (BEAKER) (test code = [place], 1538) [address]: Motorcycle Mechanic/Techni radha ID = [id number] for Lexus Rodriguez BASIC METABOLIC [id number] 06:34:00 Test Item Value Reference Range Interpretation [...] S NOT APPLICABLE FOR DIALYSIS PATIEN TS. Motorcycle Mechanic ID - [id number] 06:33:00 Test Item Value Reference Range Interpretation Comments MAGNESIUM (BEAKER) (test code = 1.9 mg/dL 1.6-2.6 627) Motorcycle Mechanic ID - [id number] 06:33:00 Test Item Value Reference Range Interpretation Comments PHOSPHORUS (BEAKER) (test code = 2.9 mg/dL 2.3-4.7 604) Motorcycle Mechanic ID - EDASICBC (HEMOGRAM ONLY)2020-08-17 06:05:00 Test [...] WBC 0-0 (test code = 413) POCT-GLUCOSE [id number] 21:02:00 Test Item Value Reference Range Interpretation Comments POC-GLUCOSE METER 206 mg/dL 70-110 H : TESTED A T [facility] 6720 (BEAKER) (test code = [facility]) [address]: Motorcycle Mechanic/Techni radha ID = [id number] for RO CHARLES, KIMMIE POCT-GLUCOSE [id number] 17:09:00 Test Item Value Reference Range Interpretation Comments POC-GLUCOSE METER 96 mg/dL 70-110 : TESTED A T [facility] 6720 (BEAKER) (test code = [facility]) [address]: Motorcycle Mechanic/Techni radha ID = [id number] for Loida ano, Ramon POCT-GLUCOSE [id number] 12:35:00 Test Item Value Reference Range Interpretation Comments POC-GLUCOSE METER 107 mg/dL 70-110 : TESTED A T [facility] 6720 (BEAKER) (test code = [facility]) [address]: Motorcycle Mechanic/Techni radha ID = [id number] for JONATHAN AARON POCT-GLUCOSE [id number] 08:06:00 Test Item Value Reference Range Interpretation Comments POC-GLUCOSE METER 81 mg/dL 70-110 : TESTED A T [facility] 6720 (BEAKER) (test code = [facility]) [address]: Motorcycle Mechanic/Techni radha ID = [id number] for ORCHANO EY JONATHAN BASIC METABOLIC [id number] 04:53:00 Test Item Value Reference Range Interpretation [...] S NOT APPLICABLE FOR DIALYSIS PATIEN TS. Motorcycle Mechanic ID - [id number] 04:48:00 Test Item Value Reference Range Interpretation Comments MAGNESIUM (BEAKER) (test code = 2.0 mg/dL 1.6-2.6 627) Motorcycle Mechanic ID - [id number] 04:48:00 Test Item Value Reference Range Interpretation Comments PHOSPHORUS (BEAKER) (test code = 3.3 mg/dL 2.3-4.7 604) Motorcycle Mechanic ID - EDASICalcium, Dlymard6321-53-17 04:25:00 Test Item Value Reference Range Interpretation Comments Calcium, Ion (test code = 1993-3) 1.12 mmol/L 1.12-1.27 pH, Blood (test code = 96535-5) 7.42 [facility], [id number] 04:25:00 Test Item Value Reference Range Interpretation [...] = 413) RAD, CHEST, 1 VIEW, NON [id number] 04:20:00while patient is intubated or has chest tubes.Reason for exam:->Status post CV SurgeryShould thisbe performed at the bedside?->Yes [facility] : 1955 Sex: MFINAL REPORT RAD, CHEST, 1 VIEW, NON DEPT INDICATION: Status post CV Surgery COMPARISON: Exam from 12 hours prior FINDINGS: Portable frontal view of the chest. IMPRESSION: Support Lines: Stable left chest tube.Lungs and pleura: Bilateral central venous congestion with mildly increased bibasilar hazy parenchymal opacities suggestive of edema and/or layering pleural effusions. . Small leftapical pneumothorax is decreased in size.Heart and mediastinum: Stable contours.Additional findings:None. Signed: Jhon Eldridge MDReport Verified Date/Time: 08/16/2020 04:20:29 POCT-GLUCOSE [id number] 20:54:00 Test Item Value Reference Range Interpretation Comments POC-GLUCOSE METER 115 mg/dL 70-110 H : TESTED A T [facility] 6720 [facility] (test code = [place], 1538) [address]: Motorcycle Mechanic/Techni radha ID = [id number] for RO CHARLESMAGEDO U/S, [id number] 15:25:00Right pleural effusionReason for exam:- >right pleural effusion [facility] : 1955 Sex: MFINAL REPORT Ultrasound guided right thoracentesis. Clinical History: Right pleural effusion. Modality: Ultrasound. Sedation: None. Motor Carrier Inspector: Kamilla Marte PA-C Lead Massage Therapist: None. Estimated Blood Loss: 1cc Specimen: 1200 [...] Leroy Verified Date/Time: 08/15/2020 15:25:50 Reading Location: [address] Ultrasound Reading Room Electronically signed by: ASHLYN LEROY MD on08/15/2020 03:25 PMPOCT-GLUCOSE [id number] 15:12:00 Test Item Value Reference Range Interpretation Comments POC-GLUCOSE METER 92 mg/dL 70-110 : TESTED A T [facility] 6720 (BEAKER) (test code = [place], 1538) [address]: Motorcycle Mechanic/Techni radha ID = [id number] for Lexus Rodriguez RAD, CHEST, 1 VIEW, NON [id number] 14:46:00Reason for exam:->s/p right thoraShould this be performed at the bedside?->YesU/S rm 1 [facility] : 1955 Sex: MFINAL REPORT RAD, CHEST, 1 VIEW, NON DEPT INDICATION: s/p right thora COMPARISON: 11 hours prior FINDINGS: Portable frontal view of the chest. IMPRESSION: Support Lines: None Lungs and pleura: Decreased right effusion. No postprocedural pneumothorax. Stable trace left apical pneumothorax.Heart and mediastinum: Stable contours. Stable surgical changes.Additional findings: None. Signed: JR Culver Robert MDReport Verified Date/Time: 08/15/2020 14:46:15 Reading Location: [facility] Radiology Reading Room POCT-GLUCOSE METER 2020-08-15 12:27:00 Test Item Value Reference Range Interpretation Comments POC-GLUCOSE METER 118 mg/dL 70-110 H : TESTED A T [facility] 6720 (BEAKER) (test code = [place], 1538) [address]: Motorcycle Mechanic/Techni radha ID = [id number] for Lexus Oleary Anti-Nuclear Antibody (MISSAEL)2020-08-15 10:57:00 Test Item Value Reference Range Interpretation Comments MISSAEL (test code = 59812-7) Positive Negative A YARI (test code = YARI) Test performed by IFA method. Lab Interpretation (test Abnormal code = 42226-1) [facility] CenterANA Titer & [id number] 10:57:00 Test Item Value Reference Range Interpretation Comments MISSAEL Titer (test code = 17522-8) 1:160 MISSAEL Pattern (test code = 1781) Homogeneous [facility] CenterANTI-NUCLEAR ANTIBODY (MISSAEL)2020-08-15 10:57:00 Test Item Value Reference Range Interpretation Comments ANTI-NUCLEAR ANTIBODY (MISSAEL) (BEAKER) Positive Negative A (test code = 418) Test performed by IFA method.MISSAEL TITER AND [id number] 10:57:00 Test Item Value Reference Range Interpretation Comments MISSAEL TITER (BEAKER) (test code = :160 1541) MISSAEL PATTERN (BEAKER) (test code = Homogeneous 1781) [id number] 09:56:00 Test Item Value Reference Interpretation Comments Range Protime (test code = 14.9 See_Comment H [Autom ated 5902-2) message] The system which generated this result transmitted reference range : 11.9 - 14.2 seconds. The reference range was not used to interpret this result as normal/abnormal . INR (test code = 1.21 See_Comment [Automated 4801-6) message] The system which generated this result transmitted reference range : <=5.90. The reference range was not used to interpret this result as normal/abnormal . PTT (test code = 27.4 See_Comment [Automated 69603-3) message] The system which generated this result [...] valves. Lab Interpretation Abnormal (test code = 16656-4) [facility] CenterPT/[id number] 09:56:00 Test Item Value Reference Range Interpretation [...] is 2.5-3.5 for patients wiht mechanical heart valves.POCT-GLUCOSE [id number] 07:56:00 Test Item Value Reference Range Interpretation Comments POC-GLUCOSE METER 102 mg/dL 70-110 : TESTED A T [facility] 6720 (BEAKER) (test code = GABRIEL Nunez [facility], 1538) [address]: Motorcycle Mechanic/Techni radha ID = [id number] for OR JONATHAN ZAYAS BASIC METABOLIC [id number] 06:11:00 Test Item Value Reference Range Interpretation [...] S NOT APPLICABLE FOR DIALYSIS PATIEN TS. Motorcycle Mechanic ID - FREDERIC [id number] 06:10:00 Test Item Value Reference Range Interpretation Comments MAGNESIUM (BEAKER) (test code = 1.9 mg/dL 1.6-2.6 627) Motorcycle Mechanic ID - FREDERIC [id number] 06:10:00 Test Item Value Reference Range Interpretation Comments PHOSPHORUS (BEAKER) (test code = 3.2 mg/dL 2.3-4.7 604) Motorcycle Mechanic ID - FREDERIC MCBC (HEMOGRAM ONLY)2020-08-15 05:14:00 [...] = 413) RAD, CHEST, 1 VIEW, NON [id number] 04:34:00while patient is intubated or has chest tubes.Reason for exam:->Status post CV SurgeryShould thisbe performed at the bedside?->Yes [facility] 1955 Sex: MFINAL [...] pneumothorax.Heart and mediastinum: Stable contours. Additional findings: None. Findings discussedwith the patient's nurse, Heather, to be immediately conveyed to the patient's physician on 08/15/2020 4:32 AM. Signed: Dane Lopez MDReport Verified Date/Time: 08/15/2020 04:34:57 CALCIUM, IONIZED 2020-08-15 03:56:00 Test Item Value Reference Range Interpretation Comments CALCIUM IONIZED (BEAKER) (test 1.08 mmol/L 1.12-1.27 L code = 698) PH, BLOOD (BEAKER) (test code = 7.42 1810) Prepare [id number] 23:54:00 Test Item Value Reference Range Interpretation Comments CROSSMATCH (test code = 2264) COMPATIBLE Unit ABO (test code = O Pos 7707951) UNIT NUMBER (test code = [id number] 934-0) Status (test code = 7766133) [place]_TIMEINCHART Blood Bank Product (test code RED BLOOD CELLS = 2263) PRODUCT CODE (test code = F6190R90 933-2) [facility] CenterPrepare [id number] 23:54:00 Test Item Value Reference Range Interpretation Comments Unit ABO (test code = 7852350) O Pos UNIT NUMBER (test code = [id number] 934-0) Status (test code = 9522209) [place]_TIMEINCHART Blood Bank Product (test code FFP = 2263) PRODUCT CODE (test code = E7297M64 933-2) [facility] CenterPrepare [id number] 23:54:00 Test Item Value Reference Range Interpretation Comments Unit ABO (test code = 1069384) O Neg UNIT NUMBER (test code = [id number] 934-0) Status (test code = 9939017) [place]_TIMEINCHART Blood Bank Product (test code PLATELETS = 2263) PRODUCT CODE (test code = Y0326I03 933-2) [facility] CenterU/S, ABDOMINAL, [id number] 11:53:00Abdomen limited area? Add comment if clarification is needed.->Right upper quadrantReason for exam:->Thrombocytopenia - evaluate for cirrhosis and/or splenemegalyAL[facility]EDA [facility]: CHRISTINALDASIMONE LEE : 1955 Sex: MFINAL REPORT TECHNIQUE: Grayscale ultrasound of the right abdomen. INDICATION: Thrombocytopenia - evaluate for cirrhosis and/or splenomegaly. COMPARISON: None. FINDINGS: MIDLINE VASCULATURE: The visualized inferior vena cava is unremarkable. The maximum visualized aortic diameter is 1.9 cm. LIVER: The liver is mildly enlarged at 18.5 cm right hepatic lobe length. Smooth liver contour. Nofocal lesions. The main portal vein is patent and measures 0.8 cm in diameter. BILIARY:Gallbladder: No gallstones or sludge. No gallbladder wall thickening or pericolic cystic fluid. The gallbladder ismildly distended. Negative sonographic Johnson sign.Common bile duct measures 0.4 cm, within normal limits. No intrahepatic biliary ductal dilatation. PANCREAS: Incompletely visualized due to overlying bowel gas. The partially visualized pancreatic body is normal. SPLEEN: No splenomegaly. The spleen measures 9.7 cm in length. PERITONEUM: No free fluid. RIGHT KIDNEY: The right kidney is small. A right u pper pole renal lesion measures 3.3 x 3.2 x 3.1 cm and has posterior acoustic enhancement. A right lower pole renal lesion measures 1.3 x 1.3 x 1.57 m has posterior acoustic enhancement. No hydronephrosis. No sonographically evident solid mass lesion. Moderate size right pleural effusion. IMPRESSION: 1.Mild splenomegaly. 2.Moderate-sized right pleural effusion. 3.Two right renal lesions measure up to3.3 cm and are most likely simple renal cysts but indeterminate on this ultrasound. This can be further evaluated with a CT of the abdomen with and without intravenous contrast, renal mass protocol, lina nonemergent basis. 4.The gallbladder is mildly distended. However, this is a nonspecific finding which can be seen with fasting. Signed: Shae Aleman MDReport Verified Date/Time: 08/14/2020 11:53:09 Oxygen saturation, [id number] 10:46:00 Test Item Value Reference Range Interpretation Comments O2 Saturation (Measured) (test code = 92.4 % 24677-7) [facility] CenterOXYGEN SATURATION, [id number] 10:46:00 Test Item Value Reference Range Interpretation Comments O2 SATURATION (MEASURED) (RYANAKER) 92.4 % (test code = 1455) Hemoglobin [id number] 08:35:00 Test Item Value Reference Range Interpretation Comments Hemoglobin A1C (test code = 4548-4) 5.4 % 4.3-6.1 Lab Interpretation (test code = Normal 31404-6) [facility] CenterHEMOGLOBIN [id number] 08:35:00 Test Item Value Reference Range Interpretation Comments HEMOGLOBIN A1C (BEAKER) (test code = 5.4 % 4.3-6.1 368) POCT-GLUCOSE [id number] 06:18:00 Test Item Value Reference Range Interpretation Comments POC-GLUCOSE METER 133 mg/dL 70-110 H : TESTED A T [facility] 6720 (SILVANA) (test code = [place], 1538) [address]: Motorcycle Mechanic/Techni radha ID = [id number] for BRIELLE LEIVA Hepatitis C [id number] 05:53:00 Test Item Value Reference Range Interpretation Comments Hepatitis C Ab (test Nonreactive Nonreactive code = 57726-7) YARI (test code = YARI) Motorcycle Mechanic ID - FREDERIC M Lab Interpretation (test Normal code = 32472-0) [facility] CenterHepatitis B [id number] 05:53:00 Test Item Value Reference Range Interpretation Comments Hep B Core Total Ab Nonreactive Nonreactive (test code = 32034-4) Hep B S Ab (test 747.6 See_Comment H [Automated code = 46302-7) message] The system which generated this result transmitted reference range : <8.0 mIU/mL. e reference range was not used to interpret this result as normal/abnormal . HBsAg Screen (test Nonreactive Nonreactive code = 5195-3) YARI (test code = Motorcycle Mechanic ID - YARI) FREDERIC M Lab Interpretation Abnormal (test code = 21838-7) [facility] CenterHIV-1 Antigen with HIV-1/2 [id number] 05:53:00 Test Item Value Reference Range Interpretation Comments HIV-1 Antigen with HIV Nonreactive Nonreactive 1&2 Antibody (test code = 98270-2) YARI (test code = YARI) Motorcycle Mechanic ID - FREDERIC M Lab Interpretation (test Normal code = 30226-2) [facility] CenterHEPATITIS C [id number] 05:53:00 Test Item Value Reference Range Interpretation Comments HEPATITIS C ANTIBODY (BEAKER) Nonreactive Nonreactive (test code = 367) Motorcycle Mechanic ID - FREDERIC DAVIDSONEPATITIS B [id number] 05:53:00 Test Item Value Reference Range Interpretation Comments HEPATITIS B CORE TOTAL ANTIBODY Nonreactive Nonreactive (BEAKER) (test code = 497) HEPATITIS B SURFACE ANTIBODY 747.6 mIU/mL <8.0 H (BEAKER) (test code = 647) HEPATITIS B SURFACE ANTIGEN (2) Nonreactive Nonreactive (BEAKER) (test code = 2585) Motorcycle Mechanic ID - FREDERIC DAVIDSONIV-1 ANTIGEN WITH HIV-1/2 [id number] 05:53:00 Test Item Value Reference Range Interpretation Comments HIV-1 ANTIGEN WITH HIV 1\\T\\2 Nonreactive Nonreactive ANTIBODY (2) (BEAKER) (test code = 2586) Motorcycle Mechanic ID - FREDERIC MBASIC METABOLIC [id number] 04:55:00 Test Item Value Reference Range Interpretation [...] S NOT APPLICABLE FOR DIALYSIS PATIEN TS. Motorcycle Mechanic ID - FREDERIC MLipid [id number] 04:39:00 Test Item Value Reference Range Interpretation Comments Triglycerides (test 96 mg/dL code = 2571-8) Cholesterol (test code 79 mg/dL = 3-3) HDL (test code = 23 mg/dL 5-9) LDL Calculated (test 37 mg/dL code = 99669-6) YARI (test code = YARI) Triglyceride Reference Range: Low Risk <150 Borderline 150-199 High Risk 200-499 Very High Risk >=500 Cholesterol Reference Range: Low Risk <200 Borderline 200-239 High Risk >240 HDL Cholesterol Reference Range: Low Risk >=60 High Risk <40 LDL Cholesterol Reference Range: Optimal <100 Near Optimal 100-129 Borderline 130-159 High 160-189 Very High >=190 Motorcycle Mechanic ID - FREDERIC Nelson [facility] Medical CenterMAGNESIUM2020-12-23 04:39:00 Test Item Value Reference Range Interpretation Comments MAGNESIUM (BEAKER) (test code = 1.9 mg/dL 1.6-2.6 627) Motorcycle Mechanic ID - FREDERIC [id number] 04:39:00 Test Item Value Reference Range Interpretation Comments PHOSPHORUS (BEAKER) (test code = 4.5 mg/dL 2.3-4.7 604) Motorcycle Mechanic ID - FREDERIC MLIPID [id number] 04:39:00 Test Item Value Reference Range Interpretation Comments TRIGLYCERIDES (BEAKER) (test code = 96 mg/dL 540) CHOLESTEROL (BEAKER) (test code = 79 mg/dL 631) HDL CHOLESTEROL (BEAKER) (test code 23 mg/dL = 976) LDL CHOLESTEROL CALCULATED (BEAKER) 37 mg/dL (test code = 633) Triglyceride Reference Range: Low Risk <150 Borderline 150-199 High Risk 200- 499 Very High Risk >=500Cholesterol Reference Range: Low Risk <200 Borderline 200-239 High Risk >240HDL Cholesterol Reference Range: Low Risk >=60 High Risk <40LDL Cholesterol Reference Range: Optimal <100 Near Optimal 100-129 Borderline 130-159 High 160-189 Very High >=190 Motorcycle Mechanic MALLIKA DE LA GARZA MRAD, CHEST, 1 VIEW, NON [id number] 04:33:00while patient is intubated or has chest tubes.Reason for exam:->Status post CV SurgeryShould thisbe performed at the bedside?->Yes [facility] 1955 Sex: [...] MDReport Verified Date/Time: 08/14/2020 04:33:06 Blood gas, [id number] 04:21:00 Test Item Value Reference Range Interpretation Comments pH, Arterial (test code 7.40 7.35-7.45 = 2744-1) pCO2, Arterial (test 48 See_Comment H [Autom ated message] code = 2019-8) The system ClientShow generated this result transmit rachana reference range : 35 - 45 mm Hg. The reference range was not used to interpret this result as normal/abnormal . pO2, Arterial (test 121 See_Comment H [Automa rachana message] code = 2703-7) The system ClientShow generated this result transmit rachana reference range [...] 36 Lab Interpretation Abnormal (test code = 07758-6) [facility] CenterBLOOD GAS, [id number] 04:21:00 Test Item Value Reference Range Interpretation [...] (BEAKER) (test code = 1819) 36.0 CALCIUM, [id number] 04:14:00 Test Item Value Reference Range Interpretation [...] WBC 0-0 (test code = 413) POCT-GLUCOSE [id number] 00:43:00 Test Item Value Reference Range Interpretation Comments POC-GLUCOSE METER 129 mg/dL 70-110 H : TESTED A T [facility]SC 6720 (BEAKER) (test code = [place], 1538) [address]: Motorcycle Mechanic/Techni radha ID = [id number] for BRIELLE LEIVA Lactic Acid, [id number] 19:57:00 Test Item Value Reference Range Interpretation Comments Lactate, Art (test code = 1.1 mmol/L 0.5-2.2 4) YARI (test code = YARI) Motorcycle Mechanic ID - BS Lab Interpretation (test Normal code = 70053-2) [facility] CenterLACTIC ACID, [id number] 19:57:00 Test Item Value Reference Range Interpretation Comments LACTATE BLOOD ARTERIAL (2) 1.1 mmol/L 0.5-2.2 (BEAKER) (test code = 2874) Motorcycle Mechanic ID - BSHGB/HCT (H&H)-Stat [id number] 19:47:00 Test Item Value Reference Range Interpretation Comments Hemoglobin (test code = 9.2 See_Comment L [Au tomated message] 786-4) The system [employer] generated this result transmitted ref erence range: 13.0 - 1 6.8 GM/DL. The refe rence range was not u sed to interpret this result as normal/abnor mal. Hematocrit (test code = 27.0 % 40.0-50.0 L 4544-3) Lab Interpretation (test Abnormal code = 03173-1) [facility] CenterGlucose-Stat [id number] 19:47:00 Test Item Value Reference Range Interpretation Comments Glucose (test code = 2345-7) 146 mg/dL 70-110 H Lab Interpretation (test code = Abnormal 96448-0) [facility] [id number] 19:47:00 Test Item Value Reference Range Interpretation Comments Sodium (test code = 2951-2) 141 meq/L 136-145 Lab Interpretation (test code = Normal 06601-8) [facility] CenterPotassium-Stat [id number] 19:47:00 Test Item Value Reference Range Interpretation Comments Potassium (test code = 2823-3) 3.9 meq/L 3.6-5.5 Lab Interpretation (test code = Normal 93652-8) [facility] [id number] 19:47:00 Test Item Value Reference Range Interpretation Comments SODIUM (BEAKER) (test code = 381) 141 meq/L 136-145 POTASSIUM-STAT [id number] 19:47:00 Test Item Value Reference Range Interpretation Comments POTASSIUM (BEAKER) (test code = 3.9 meq/L 3.6-5.5 379) BLOOD GAS, [id number] 19:47:00 Test Item Value Reference Range Interpretation [...] (BEAKER) (test code = 1819) 40.0 GLUCOSE-STAT [id number] 19:47:00 Test Item Value Reference Range Interpretation Comments GLUCOSE RANDOM (BEAKER) (test code 146 mg/dL 70-110 H = 652) HGB/HCT (H&H) - STAT [id number] 19:47:00 Test Item Value Reference Range Interpretation Comments HEMOGLOBIN (BEAKER) (test code = 9.2 GM/DL 13.0-16.8 L 410) HEMATOCRIT (BEAKER) (test code = 27.0 % 40.0-50.0 L 411) Hepatitis B surface [id number] 19:30:00 Test Item Value Reference Range Interpretation Comments HBsAg Screen (test code Nonreactive Nonreactive = 5195-3) YARI (test code = YARI) Specimen is considered negative for HBsAg. Lab Interpretation (test Normal code = 97417-8) [facility] CenterHEPATITIS B SURFACE [id number] 19:30:00 Test Item Value Reference Range Interpretation Comments HEPATITIS B SURFACE ANTIGEN (2) Nonreactive Nonreactive (BEAKER) (test code = 2585) Specimen is considered negative for HBsAg.Thromboelastograph (TEG)2020-08-13 18:10:00 Test Item Value Reference Range Interpretation Comments TEG Activated Clotting 7.8 See_Comment H [Aut omated message] Time (test code = The system which 65779-0) generated this result transmitted ref erence range: 4.0 - 7. 0 minutes. The reference range was not used to int erpret this result as normal/abnormal . TEG Fibrinogen Activity 58.1 See_Comment L [Au tomated message] (test code = 13952-1) The sy stem which generated this result transmitted ref erence range: 61.0 - 7 3.0 degrees. The reference range was not used to int erpret this result as normal/abnormal . TEG Platelet Aggregation 49.3 See_Comment L [A utomated message] (test code = 55311-5) The sy stem which generated this result transmitted ref erence range: 55.0 - 6 5.0 MM. The referen ce range was not u sed to interpret this result as normal/abnor mal. TEG Fibrinolysis (test 0.5 % 0.0-5.0 code = 26836-5) TEG-H Activated Clotting 8.1 See_Comment H [A [...] 1414) Lab Interpretation (test Abnormal code = 05844-9) [facility] CenterTHROMBOELASTOGRAPH (TEG)2020-08-13 18:10:00 Test Item Value [...] % 0.0-5.0 code = 1414) BLOOD GAS, [id number] 16:26:00 Test Item Value Reference Range Interpretation [...] (BEAKER) (test code = 1819) 50.0 GLUCOSE-STAT [id number] 16:26:00 Test Item Value Reference Range Interpretation Comments GLUCOSE RANDOM (BEAKER) (test code 165 mg/dL 70-110 H = 652) HGB/HCT (H&H) - STAT [id number] 16:26:00 Test Item Value Reference Range Interpretation Comments HEMOGLOBIN (BEAKER) (test code = 9.6 GM/DL 13.0-16.8 L 410) HEMATOCRIT (BEAKER) (test code = 28.0 % 40.0-50.0 L 411) SODIUM NA-STAT [id number] 16:25:00 Test Item Value Reference Range Interpretation Comments SODIUM (BEAKER) (test code = 381) 143 meq/L 136-145 POTASSIUM-STAT [id number] 16:25:00 Test Item Value Reference Range Interpretation Comments POTASSIUM (BEAKER) (test code = 3.6 meq/L 3.6-5.5 379) RAD, CHEST, 1 VIEW, NON [id number] 15:39:00Reason for exam:->pleural effusions/p intubation Should this be performed at the bedside?->Yes [facility] : 1955 Sex: MFINAL REPORT RAD, CHEST, 1 VIEW, NON DEPT INDICATION: pleural effusion COMPARISON: 1 hour prior FINDINGS: Portable frontal view of the chest. IMPRESSION: Support Lines: Stable. Lungs and pleura: Stable effusion on the right. No pneumothorax.Heart and mediastinum: Stable contours. Stable surgical changes.Additional findings: None. Signed: JR Culver Robert MDReport Verified Date/Time: 08/13/2020 15:39:40 Reading Location: [facility] Radiology Reading Room PT/[id number] 15:02:00 Test Item Value Reference Range Interpretation [...] is 2.5-3.5 for patients wiht mechanical heart valves.Prothrombin time/[id number] 15:01:00 Test Item Value Reference Interpretation Comments [...] to interpret this result as normal/abnormal . YRAI (test code = Effective 01/18/2019: YARI) PT Reference Range ChangeNew: 11.9-14.2 Previous: 11.7-14.7 RECOMMENDED COUMADIN/WARFARIN INR THERAPY RANGESSTANDARD DOSE: 2.0-3.0 Includes: PROPHYLAXIS for venous thrombosis, systemic embolization; TREATMENT for venous thrombosis and/or pulmonary embolus.HIGH RISK: Target INR is 2.5-3.5 for patients wiht mechanical heart valves. Lab Interpretation Abnormal (test code = 92384-3) [facility] CenterPROTHROMBIN TIME/[id number] 15:01:00 Test Item Value Reference Range Interpretation [...] is 2.5-3.5 for patients wiht mechanical heart valves.CALCIUM, [id number] 14:59:00 Test Item Value Reference Range Interpretation Comments CALCIUM IONIZED (BEAKER) (test 1.26 mmol/L 1.12-1.27 code = 698) PH, BLOOD (BEAKER) (test code = 7.54 1810) OXYGEN SATURATION, [id number] 14:57:00 Test Item Value Reference Range Interpretation Comments O2 SATURATION (MEASURED) (BEAKER) 94.2 % (test code = 1455) Comprehensive metabolic [id number] 14:18:00 Test Item Value Reference Range Interpretation [...] 3.0 g/dL 3.5-5.0 L Specime n slightly 70539-1) hemolyzed Alkaline Phosphatase 65 U/L 40-150 (test code = 6768-6) Total Bilirubin (test 1.0 mg/dL 0.2-1.2 Specim en slightly code = 1974-2) hemolyzed Sodium (test code = 145 meq/L 539-768 8908-2) Potassium (test code 3.9 meq/L 3.5-5.1 Specime [...] 10.4 mg/dL 8.4-10.2 H Discord ant CALCIUM 32596-3) result compared to previous result ; clinical correlation required. AST (test code = 24 U/L 5-34 Specimen sl ightly 1920-8) hemolyzed ALT (test code = 13 U/L 6-55 Specimen sl ightly 1742-6) hemolyzed EGFR (test code = 13 mL/min/1.73 [place] [address]-5) NOT ACCURATE CREATININE CLEARANCE IN PREDICTING GLOMERULAR FILTRATION RATE . ESTIMATED GFR I S NOT APPLICABLE FOR DIALYSIS PATIEN TSLove YARI (test code = YARI) Motorcycle Mechanic ID - RM Lab Interpretation Abnormal (test code = 64793-8) [facility] CenterCOMPREHENSIVE METABOLIC [id number] 14:18:00 Test Item Value Reference Range Interpretation [...] S NOT APPLICABLE FOR DIALYSIS PATIEN TS. Motorcycle Mechanic ID - [id number] 14:15:00 Test Item Value Reference Range Interpretation Comments MAGNESIUM (BEAKER) 1.9 mg/dL 1.6-2.6 Specimen slightly (test code = 627) hemolyzed Motorcycle Mechanic ID - [id number] 14:15:00 Test Item Value Reference Range Interpretation Comments PHOSPHORUS (BEAKER) 3.0 mg/dL 2.3-4.7 Specimen slightly (test code = 604) hemolyzed Motorcycle Mechanic ID - RMBLOOD GAS, [id number] 14:12:00 Test Item Value Reference Range Interpretation [...] (BEAKER) (test code = 1819) 50.0 GLUCOSE-STAT [id number] 14:12:00 Test Item Value Reference Range Interpretation Comments GLUCOSE RANDOM (BEAKER) (test code 161 mg/dL 70-110 H = 652) HGB/HCT (H&H) - STAT [id number] 14:12:00 Test Item Value Reference Range Interpretation Comments HEMOGLOBIN (BEAKER) (test code = 9.8 GM/DL 13.0-16.8 L 410) HEMATOCRIT (BEAKER) (test code = 29.0 % 40.0-50.0 L 411) LACTIC ACID, [id number] 14:10:00 Test Item Value Reference Range Interpretation Comments LACTATE BLOOD 1.3 mmol/L 0.5-2.2 Specimen sligh tly ARTERIAL (2) (BEAKER) hemoly zed (test code = 2874) Motorcycle Mechanic ID - RMRAD, CHEST, 1 VIEW, NON [id number] 14:10:00Reason for exam:- >Status post CV Surgery post op day 0Should this be performed at the bedside?->[facility] : 1955 Sex: MFINAL REPORT RAD, CHEST, 1 VIEW, NON DEPT INDICATION: Status post CV Surgery post op day 0 COMPARISON: Numerous seven hours prior FINDINGS: Portable frontal view of the chest. IMPRESSION: Support Lines: Endotracheal tube terminates 3 cm above the norma. Left IJ central venous catheter terminates at the brachiocephalic vein. Enteric tube side-port is near the GE junction. Thoracic drainage catheters are present. Lungs and pleura: Scattered subsegmental atelectasis noted bilaterally, improved from prior. Small right effusion and apical pleural capping. No pneumothorax.Heart and mediastinum: Stable contours. Sternotomy wires are intact.Additional findings: None. Signed: JR Culver Robert MDReport Verified Date/Time: 08/13/2020 14:10:40 Reading Location: [facility] Radiology Reading Room SODIUM NA-STAT [id number] 14:04:00 Test Item Value Reference Range Interpretation Comments SODIUM (BEAKER) (test code = 381) 140 meq/L 136-145 POTASSIUM-STAT [id number] 14:04:00 Test Item Value Reference Range Interpretation [...] (BEAKER) (test code = 413) OXYGEN SATURATION, [id number] 13:57:00 Test Item Value Reference Range Interpretation Comments O2 SATURATION (MEASURED) (BEAKER) 93.6 % (test code = 1455) LACTATE DEHYDROGENASE (LDH)2020-08-13 13:28:00 Test Item Value Reference Range Interpretation Comments LACTATE DEHYDROGENASE 209 U/L 125-220 Specim en slightly (BEAKER) (test code = hemoly zed 635) Motorcycle Mechanic ID - [id number] 13:25:00 Test Item Value Reference Range Interpretation Comments PHOSPHORUS (BEAKER) 3.0 mg/dL 2.3-4.7 Specimen slightly (test code = 604) hemolyzed Motorcycle Mechanic ID - ROSIANGBILIRUBIN, TOTAL AND [id number] 13:25:00 Test Item Value Reference Range Interpretation Comments BILIRUBIN TOTAL 0.6 mg/dL 0.2-1.2 Specimen sli ghtly (BEAKER) (test code = hemoly zed 377) BILIRUBIN DIRECT 0.3 mg/dL 0.1-0.5 Specimen sl ightly (BEAKER) (test code = hemoly zed 706) Motorcycle Mechanic ID - [id number] 13:23:00 Test Item Value Reference Range Interpretation Comments Haptoglobin (test code = 61 mg/dL 14258 4542-7) YARI (test code = YARI) Motorcycle Mechanic ID - ROSIANG Lab Interpretation (test Normal code = 62496-8) [facility] CenterHAPTOGLOBIN2020-12-22 13:23:00 Test Item Value Reference Range Interpretation Comments HAPTOGLOBIN (BEAKER) (test code = 61 mg/dL 14258 366) Motorcycle Mechanic ID - [id number] 13:22:00 Test Item Value Reference Range Interpretation Comments Fibrinogen (test code = 3255-7) 255 mg/dl 225-434 Lab Interpretation (test code = Normal 82269-5) [facility] CenteraPTT2020-12-22 13:22:00 Test Item Value Reference Range Interpretation Comments PTT (test code = 36326-6) 33.2 See_Comment [ Automated message] The system [employer] generated this result transmitted ref erence range: 22.5 - 3 6.0 seconds. The re ference range was not u sed to interpret this result as normal/abnor mal. Lab Interpretation (test Normal code = 86571-9) [facility] CenterFIBRINOGEN2020-12-22 13:22:00 Test Item Value Reference Range Interpretation Comments FIBRINOGEN LEVEL (BEAKER) (test 255 mg/dl 225-434 code = 658) [id number] 13:22:00 Test Item Value Reference Range Interpretation Comments PARTIAL THROMBOPLASTIN TIME 33.2 seconds 22.5-36.0 (BEAKER) (test code = 760) PROTHROMBIN TIME/[id number] 13:21:00 Test Item Value Reference Range Interpretation [...] is 2.5-3.5 for patients wiht mechanical heart valves.Lactate dehydrogenase (LDH)2020-08-13 13:16:00 Test Item Value Reference Range Interpretation Comments LDH (test code = 2532-0) 171 U/L 125-220 YARI (test code = YARI) Motorcycle Mechanic ID - ROSIANG Lab Interpretation (test Normal code = 16872-4) [facility] CenterBilirubin, total and [id number] 13:16:00 Test Item Value Reference Range Interpretation Comments Total Bilirubin (test code 1.0 mg/dL 0.2-1.2 = 1975-2) Bilirubin, Direct (test 0.5 mg/dL 0.1-0.5 code = 1968-7) YARI (test code = YARI) Motorcycle Mechanic ID - ROSIANG Lab Interpretation (test Normal code = 54103-6) [facility] CenterBILIRUBIN, TOTAL AND [id number] 13:16:00 Test Item Value Reference Range Interpretation Comments BILIRUBIN TOTAL (BEAKER) (test code 1.0 mg/dL 0.2-1.2 = 377) BILIRUBIN DIRECT (BEAKER) (test 0.5 mg/dL 0.1-0.5 code = 706) Motorcycle Mechanic ID - ROSIANGLACTATE DEHYDROGENASE (LDH)2020-08-13 13:16:00 Test Item Value Reference Range Interpretation Comments LACTATE DEHYDROGENASE (BEAKER) (test 171 U/L 125-220 code = 635) Motorcycle Mechanic ID - ROSIANGPOC ACTIVATED CLOTTING [id number] 13:11:00 Test Item Value Reference Range Interpretation Comments Activated Clotting Time 120 sec : 74 -137 seconds, (test code = 441) Baseline: TESTED AT [facility] [address] [facility] [place], [address]: Motorcycle Mechanic/Techni radha ID = [id number] for ARELIS ROBLES [facility] CenterPOCT-[id number] 13:11:00 Test Item Value Reference Range Interpretation Comments ACTIVATED CLOTTING TIME 120 sec : 74 -137 seconds, (BEAKER) (test code = Baseli ne: TESTED AT 441) [address], [facility] 30: Motorcycle Mechanic/Techni radha ID = [id number] for KI BLER, ARELIS [id number] 13:11:00 Test Item Value Reference Range Interpretation Comments ACTIVATED CLOTTING TIME 120 sec : 74 -137 seconds, (BEAKER) (test code = Baseli ne: TESTED AT 441) [address], [facility] 30: Motorcycle Mechanic/Techni radha ID = [id number] for KI BLER, ARELIS [id number] 13:11:00 Test Item Value Reference Range Interpretation Comments ACTIVATED CLOTTING TIME 984 sec : 74 -137 seconds, (BEAKER) (test code = Baseli ne: TESTED AT [facility]) [address], [facility] 30: Motorcycle Mechanic/Techni radha ID = [id number] for KI BLER, ARELIS [id number] 13:11:00 Test Item Value Reference Range Interpretation Comments ACTIVATED CLOTTING TIME 912 sec : 74 -137 seconds, (BEAKER) (test code = Baseli ne: TESTED AT [facility]) [address], [facility] 30: Motorcycle Mechanic/Techni radha ID = [id number] for KI BLER, ARELIS [id number] 13:11:00 Test Item Value Reference Range Interpretation Comments ACTIVATED CLOTTING TIME > sec : 74 -137 seconds, (BEAKER) (test code = Baseli ne: TESTED AT [facility]) [address], [facility] 30: Motorcycle Mechanic/Techni radha ID = [id number] for KI BLER, ARELIS [id number] 13:11:00 Test Item Value Reference Range Interpretation Comments ACTIVATED CLOTTING TIME 131 sec : 74 -137 seconds, (BEAKER) (test code = Baseli ne: TESTED AT [facility]) [address], [facility] 30: Motorcycle Mechanic/Techni radha ID = [id number] for CHARLES SUJEY BONILLA CBC with platelet count + automated [id number] 13:04:00 Test Item Value Reference Range Interpretation Comments WBC (test code = 6690-2) 8.5 See_Comment [A utomated message] The system [employer] generated this result transmitted ref erence range: 3.5 - 10 .5 K/L. The refe rence range was not u sed to interpret this result as normal/abnor mal. RBC (test code = 789-8) 2.57 See_Comment L [Au tomated message] The system [employer] generated this result transmitted ref erence range: 4.63 - 6 .08 M/L. The refe rence range was not u sed to interpret this result as normal/abnor mal. MCHC (test code = 786-4) 31.9 See_Comment L [A utomated message] The system [employer] generated this result transmitted ref erence range: [...] See_Comment [Aut omated message] 777-3) The system [employer] generated this result transmitted ref erence range: 150 - 45 0 K/CU MM. The referen ce range was not u sed to interpret this result as normal/abnor mal. MPV (test code = 10.0 fL 9.4-12.4 36968-8) nRBC (test code = 413) 0 See_Comment [Aut omated message] The system [employer] generated this result transmitted ref erence range: [...] H [Aut omated message] 670) The system [employer] generated this result transmitted ref erence range: 1.78 - 5 .38 K/L. The refe rence range was not u sed to interpret this result as normal/abnor mal. # Lymphs (test code = 1.34 See_Comment [Auto mated message] 414) The system [employer] generated this result transmitted ref erence range: 1.32 - 3 .57 K/L. The refe rence range was not u sed to interpret this result as normal/abnor mal. # Monos (test code = 0.52 See_Comment [Autom ated message] 415) The system [employer] generated this result transmitted ref erence range: 0.30 - 0 .82 K/L. The refe rence range was not u sed to interpret this result as normal/abnor mal. # Eos (test code = 416) 0.12 See_Comment [Au tomated message] The system [employer] generated this result transmitted ref erence range: 0.04 - 0 .54 K/L. The refe rence range was not u sed to interpret this result as normal/abnor mal. # Baso (test code = 417) 0.02 See_Comment [A utomated message] The system [employer] generated this result transmitted ref erence range: 0.01 - 0 .08 K/L. The refe rence range was not u sed to interpret this result as normal/abnor mal. Immature 1 % 0-1 Granulocytes-Relative (test code = 2801) Lab Interpretation (test Abnormal code = 52069-5) [facility] W/PLT COUNT & AUTO [id number] 13:04:00 Test Item Value Reference Range Interpretation [...] PERCENT (BEAKER) (test code = 2801) RETICULOCYTE [id number] 13:03:00 Test Item Value Reference Range Interpretation Comments RETICULOCYTE COUNT PCT (BEAKER) (test 2.1 % 0.5-1.8 H code = 575) Motorcycle Mechanic ID - [id number] [id number] 12:58:00 Test Item Value Reference Range Interpretation Comments % Retic (test code = 1.8 % 0.5-1.8 99331-9) YARI (test code = YARI) Motorcycle Mechanic ID - [id number] Lab Interpretation (test Normal code = 10458-6) [facility] CenterPlatelet [id number] 12:58:00 Test Item Value Reference Range Interpretation Comments Platelets (test code 138 See_Comment L [Autom ated = 777-3) message] The system which generated this result transmit rachana reference range : 150 - 450 K/CU MM. The reference range was not u sed to interpret th is result as normal/abnormal . YARI (test code = YARI) Motorcycle Mechanic ID - [id number] Lab Interpretation Abnormal (test code = 70140-1) [facility] CenterPLATELET [id number] 12:58:00 Test Item Value Reference Range Interpretation Comments PLATELET COUNT (BEAKER) (test 138 K/CU MM 150-450 L code = 756) Motorcycle Mechanic ID - [id number] [id number] 12:58:00 Test Item Value Reference Range Interpretation Comments RETICULOCYTE COUNT PCT (BEAKER) (test 1.8 % 0.5-1.8 code = 575) Motorcycle Mechanic ID - [id number] NA-STAT [id number] 12:45:00 Test Item Value Reference Range Interpretation Comments SODIUM (BEAKER) (test code = 381) 140 meq/L 136-145 BLOOD GAS, [id number] 12:45:00 Test Item Value Reference Range Interpretation [...] (BEAKER) (test code = 1819) 100.0 GLUCOSE-STAT [id number] 12:45:00 Test Item Value Reference Range Interpretation Comments GLUCOSE RANDOM (BEAKER) (test code 179 mg/dL 70-110 H = 652) POTASSIUM-STAT [id number] 12:45:00 Test Item Value Reference Range Interpretation Comments POTASSIUM (BEAKER) (test code = 3.3 meq/L 3.6-5.5 L 379) HGB/HCT (H&H) - STAT [id number] 12:45:00 Test Item Value Reference Range Interpretation Comments HEMOGLOBIN (BEAKER) (test code = 9.8 GM/DL 13.0-16.8 L 410) HEMATOCRIT (BEAKER) (test code = 29.0 % 40.0-50.0 L 411) Peripheral Blood Smear - Hold [id number] 12:38:00 Test Item Value Reference Range Interpretation Comments Peripheral Smear Save (test code = save 1815) [facility] CenterPERIPHERAL BLOOD SMEAR - HOLD [id number] 12:38:00 Test Item Value Reference Range Interpretation Comments PERIPHERAL SMEAR SAVE (BEAKER) (test save code = 1815) PROTHROMBIN TIME/[id number] 12:26:00 Test Item Value Reference Range Interpretation [...] is 2.5-3.5 for patients wiht mechanical heart valves.[id number] 12:26:00 Test Item Value Reference Range Interpretation Comments FIBRINOGEN LEVEL (BEAKER) (test 254 mg/dl 225-434 code = 658) [id number] 12:26:00 Test Item Value Reference Range Interpretation [...] 0.1 % 0.0-5.0 code = 1414) PLATELET [id number] 12:11:00 Test Item Value Reference Range Interpretation Comments PLATELET COUNT (BEAKER) (test 171 K/CU MM 150-450 code = 756) Motorcycle Mechanic ID - [id number] NA-STAT [id number] 12:02:00 Test Item Value Reference Range Interpretation Comments SODIUM (BEAKER) (test code = 381) 142 meq/L 136-145 BLOOD GAS, [id number] 12:02:00 Test Item Value Reference Range Interpretation [...] (BEAKER) (test code = 1819) 100.0 POTASSIUM-STAT [id number] 12:02:00 Test Item Value Reference Range Interpretation Comments POTASSIUM (BEAKER) (test code = 3.2 meq/L 3.6-5.5 L 379) GLUCOSE-STAT [id number] 12:02:00 Test Item Value Reference Range Interpretation Comments GLUCOSE RANDOM (BEAKER) (test code 166 mg/dL 70-110 H = 652) HGB/HCT (H&H) - STAT [id number] 12:02:00 Test Item Value Reference Range Interpretation Comments HEMOGLOBIN (BEAKER) (test code = 8.1 GM/DL 13.0-16.8 L 410) HEMATOCRIT (BEAKER) (test code = 24.0 % 40.0-50.0 L 411) CALCIUM, [id number] 12:01:00 Test Item Value Reference Range Interpretation Comments CALCIUM IONIZED (BEAKER) (test 1.12 mmol/L 1.12-1.27 code = 698) PH, BLOOD (BEAKER) (test code = 7.48 1810) [id number] 11:42:00 Test Item Value Reference Range Interpretation Comments PARTIAL THROMBOPLASTIN TIME 34.0 seconds 22.5-36.0 (BEAKER) (test code = 760) PROTHROMBIN [id number] 11:41:00 Test Item Value Reference Range Interpretation [...] is 2.5-3.5 for patients wiht mechanical heart valves.[id number] 11:41:00 Test Item Value Reference Range Interpretation Comments FIBRINOGEN LEVEL (BEAKER) (test 255 mg/dl 225-434 code = 658) HEMOGLOBIN [id number] 11:34:00 Test Item Value Reference Range Interpretation Comments HEMOGLOBIN A1C (BEAKER) (test code = 4.9 % 4.3-6.1 368) PLATELET [id number] 11:08:00 Test Item Value Reference Range Interpretation Comments PLATELET COUNT (BEAKER) 89 K/CU MM 150-450 L POST TRANSFUSION (test code = 756) Motorcycle Mechanic ID - [id number] GAS, [id number] 11:02:00 Test Item Value Reference Range Interpretation [...] (BEAKER) (test code = 1819) 100.0 POTASSIUM-STAT [id number] 11:02:00 Test Item Value Reference Range Interpretation Comments POTASSIUM (BEAKER) (test code = 3.4 meq/L 3.6-5.5 L 379) GLUCOSE-STAT [id number] 11:02:00 Test Item Value Reference Range Interpretation Comments GLUCOSE RANDOM (BEAKER) (test code 140 mg/dL 70-110 H = 652) HGB/HCT (H&H) - STAT [id number] 11:02:00 Test Item Value Reference Range Interpretation Comments HEMOGLOBIN (BEAKER) (test code = 7.5 GM/DL 13.0-16.8 L 410) HEMATOCRIT (BEAKER) (test code = 22.0 % 40.0-50.0 L 411) SODIUM NA-STAT [id number] 11:01:00 Test Item Value Reference Range Interpretation Comments SODIUM (BEAKER) (test code = 381) 140 meq/L 136-145 [id number] 10:59:00 Test Item Value Reference Range Interpretation Comments PARTIAL THROMBOPLASTIN TIME 38.7 seconds 22.5-36.0 H (BEAKER) (test code = 760) PROTHROMBIN TIME/[id number] 10:58:00 Test Item Value Reference Range Interpretation [...] is 2.5-3.5 for patients wiht mechanical heart valves.[id number] 10:58:00 Test Item Value Reference Range Interpretation Comments FIBRINOGEN LEVEL (BEAKER) (test 250 mg/dl 225-434 code = 658) PLATELET [id number] 10:47:00 Test Item Value Reference Range Interpretation Comments PLATELET COUNT (BEAKER) (test code 7 K/CU MM 150-450 LL = 756) Motorcycle Mechanic ID - [id number] ID - [id number], [id number] 10:40:00 Test Item Value Reference Range Interpretation Comments CALCIUM IONIZED (BEAKER) (test 1.09 mmol/L 1.12-1.27 L code = 698) PH, BLOOD (BEAKER) (test code = 7.46 1810) BLOOD GAS, [id number] 10:40:00 Test Item Value Reference Range Interpretation [...] (BEAKER) (test code = 1819) 100.0 GLUCOSE-STAT [id number] 10:40:00 Test Item Value Reference Range Interpretation Comments GLUCOSE RANDOM (BEAKER) (test code 136 mg/dL 70-110 H = 652) HGB/HCT (H&H) - STAT [id number] 10:40:00 Test Item Value Reference Range Interpretation Comments HEMOGLOBIN (BEAKER) (test code = 8.0 GM/DL 13.0-16.8 L 410) HEMATOCRIT (BEAKER) (test code = 24.0 % 40.0-50.0 L 411) SODIUM NA-STAT [id number] 10:38:00 Test Item Value Reference Range Interpretation Comments SODIUM (BEAKER) (test code = 381) 139 meq/L 136-145 POTASSIUM-STAT [id number] 10:38:00 Test Item Value Reference Range Interpretation Comments POTASSIUM (BEAKER) (test code = 3.6 meq/L 3.6-5.5 379) BLOOD GAS, [id number] 09:51:00 Test Item Value Reference Range Interpretation [...] (BEAKER) (test code = 1819) 70.0 GLUCOSE-STAT [id number] 09:51:00 Test Item Value Reference Range Interpretation Comments GLUCOSE RANDOM (BEAKER) (test code 133 mg/dL 70-110 H = 652) HGB/HCT (H&H) - STAT [id number] 09:51:00 Test Item Value Reference Range Interpretation Comments HEMOGLOBIN (BEAKER) (test code = 8.3 GM/DL 13.0-16.8 L 410) HEMATOCRIT (BEAKER) (test code = 24.0 % 40.0-50.0 L 411) SODIUM NA-STAT [id number] 09:50:00 Test Item Value Reference Range Interpretation Comments SODIUM (BEAKER) (test code = 381) 140 meq/L 136-145 POTASSIUM-STAT [id number] 09:50:00 Test Item Value Reference Range Interpretation Comments POTASSIUM (BEAKER) (test code = 4.0 meq/L 3.6-5.5 379) BLOOD GAS, [id number] 09:26:00 Test Item Value Reference Range Interpretation [...] (BEAKER) (test code = 1819) 70.0 GLUCOSE-STAT [id number] 09:26:00 Test Item Value Reference Range Interpretation Comments GLUCOSE RANDOM (BEAKER) (test code 151 mg/dL 70-110 H = 652) HGB/HCT (H&H) - STAT [id number] 09:26:00 Test Item Value Reference Range Interpretation Comments HEMOGLOBIN (BEAKER) (test code = 6.8 GM/DL 13.0-16.8 L 410) HEMATOCRIT (BEAKER) (test code = 20.0 % 40.0-50.0 L 411) SODIUM NA-STAT [id number] 09:25:00 Test Item Value Reference Range Interpretation Comments SODIUM (BEAKER) (test code = 381) 140 meq/L 136-145 POTASSIUM-STAT [id number] 09:25:00 Test Item Value Reference Range Interpretation Comments POTASSIUM (BEAKER) (test code = 4.1 meq/L 3.6-5.5 379) ABORH, [id number] 08:31:00 Test Item Value Reference Range Interpretation Comments ABO Grouping (test code = 2588) O Rh Factor (test code = 2589) [facility] [id number] 07:56:00 Test Item Value Reference Range Interpretation Comments GLUCOSE RANDOM (BEAKER) (test code = 93 mg/dL 70-110 652) SODIUM NA-STAT [id number] 07:56:00 Test Item Value Reference Range Interpretation Comments SODIUM (BEAKER) (test code = 381) 141 meq/L 136-145 BLOOD GAS, [id number] 07:56:00 Test Item Value Reference Range Interpretation [...] (BEAKER) (test code = 1819) 100.0 POTASSIUM-STAT [id number] 07:56:00 Test Item Value Reference Range Interpretation Comments POTASSIUM (BEAKER) (test code = 2.8 meq/L 3.6-5.5 L 379) HGB/HCT (H&H) - STAT [id number] 07:56:00 Test Item Value Reference Range Interpretation Comments HEMOGLOBIN (BEAKER) (test code = 10.1 GM/DL 13.0-16.8 L 410) HEMATOCRIT (BEAKER) (test code = 30.0 % 40.0-50.0 L 411) CALCIUM, [id number] 07:55:00 Test Item Value Reference Range Interpretation Comments CALCIUM IONIZED (BEAKER) (test 1.13 mmol/L 1.12-1.27 code = 698) PH, BLOOD (BEAKER) (test code = 7.46 1810) Type and screen, [id number] 07:26:00 Test Item Value Reference Range Interpretation Comments Ab Scrn (test code = NEGATIVE entered manually echo 1 890-4) [facility] CenterCOMPREHENS[facility] METABOLIC [id number] 07:17:00 Test Item Value Reference Range Interpretation [...] S NOT APPLICABLE FOR DIALYSIS PATIEN TS. Motorcycle Mechanic ID - KINZAKRISTA [id number] 07:09:00 Test Item Value Reference Range Interpretation Comments MAGNESIUM (BEAKER) (test code = 2.1 mg/dL 1.6-2.6 627) Motorcycle Mechanic ID - BHARAT LLIPID [id number] 07:09:00 Test Item Value Reference Range Interpretation Comments TRIGLYCERIDES (BEAKER) (test code = 57 mg/dL 540) CHOLESTEROL (BEAKER) (test code = 97 mg/dL 631) HDL CHOLESTEROL (BEAKER) (test code 37 mg/dL = 976) LDL CHOLESTEROL CALCULATED (BEAKER) 49 mg/dL (test code = 633) Triglyceride Reference Range: Low Risk <150 Borderline 150-199 High Risk 200- 499 Very High Risk >=500Cholesterol Reference Range: Low Risk <200 Borderline 200-239 High Risk >240HDL Cholesterol Reference Range: Low Risk >=60 High Risk <40LDL Cholesterol Reference Range: Optimal <100 Near Optimal 100-129 Borderline 130-159 High 160-189 Very High >=190 Motorcycle Mechanic MALLIKA LONGORIA2020-12-22 07:01:00 Test Item Value Reference Range Interpretation Comments PARTIAL THROMBOPLASTIN TIME 30.9 seconds 22.5-36.0 (BEAKER) (test code = 760) PROTHROMBIN [id number] 07:00:00 Test Item Value Reference Range Interpretation [...] is 2.5-3.5 for patients wiht mechanical heart valves.RAD, CHEST, 1 VIEW, NON [id number] 07:00:00Reason for exam:->pre opShould this be performed at the bedside?->Yes[facility] : 1955 Sex: MFINAL REPORT History: Preoperative evaluation, surgery unspecified. Comparison: None. Findings: A single view of the chest is submitted. The examination is limited by low lung volumes. There are moderate bilateral pleural effusions. Subjacent opacity in the mid and lower lungs may reflectsome combination of atelectasis and edema but pneumonitis should be excluded clinically. The cardiacsilhouette appears prominent in size, however, it is partially obscured by adjacent opacification inthe mid and lower lungs. There is central vascular engorgement. Calcified lymph nodes are present inthe bilateral juwan. There is no pneumothorax. The patient has undergone previous left shoulder arthroplasty. Degenerative changes are present in the spine and right shoulder. Signed: Rich Gabriel MDReport Verified Date/Time: 08/13/2020 07:00:58 CBC W/PLT COUNT & AUTO [id number] 06:48:00 Test Item Value Reference Range Interpretation [...] PERCENT (BEAKER) (test code = 2801) POCT-GLUCOSE [id number] 06:14:00 Test Item Value Reference Range Interpretation Comments POC-GLUCOSE METER 81 mg/dL 70-110 : TESTED A T [facility] 6720 (BEAKER) (test code = GAB[place]EL [place]JA [place], 1538) [address]: Motorcycle Mechanic/Techni radha ID = [id number] for JORD AN, LACRYSTAL SARS-COV2/RT-PCR ([facility])2020-08-08 23:08:00 Test Item Value Reference Range Interpretation Comments SARS-COV2/RT-PCR (test Negative Not Detected, Negative, code = 3807700) See external report for linked test SARS-COV-2 PERFORMING LAB [facility] RAJAT (test code = 8359086) Negative result for this test determines that [...] individuals suspected of COVID-19 by their healthcare provider.This test [...] justifying the authorization of the emergency use ofin vitro diagnostic tests for detection and/or diagnosis of COVID-19 is terminated under Section 564(b)(2) of the Act or the EUA is revoked under Section 564(g) of the Act.Testing was performed using the Toney SARS-CoV-2 assay.Fact Sheet for Healthcare Providers:https://www.molecular.toney/edward/RT_SAR Q-AxK-6_EZQ_Jqae_Uulaw_46-143133.pdfFact Sheet for Healthcare Patients:https://www.molecular.toney/s al/DX_VNLA-RiU-3_Tkiriyk_Wvfe_Pafdq_IM_39-395062F7.pdfPerforming Laboratory:[facility] [place] [address] CHEM [id number] 19:23:00 Test Item Value Reference Range Interpretation Comments POC Hematocrit (test code = POC 34.0 42.0-54.0 Hematocrit) [facility] [id number] 19:23:00 Test Item Value Reference Range Interpretation Comments POC BUN (test code = POC BUN) 35 7-22 [facility]2017-10-10 19:23:00 Test Item Value Reference Range Interpretation Comments POC Glucose (test code = POC Glucose) 118 70-99 [facility]2017-10-10 19:23:00 Test Item Value Reference Range Interpretation Comments POC Sodium (test code = POC Sodium) 142 135-145 [facility]2017-10-10 19:23:00 Test Item Value Reference Range Interpretation Comments POC Potassium (test code = POC 4.6 3.5-5.1 Potassium) [facility]2017-10-10 19:23:00 Test Item Value Reference Range Interpretation Comments POC Chloride (test code = POC Chloride) 101 95-109 [facility]2017-10-10 19:23:00 Test Item Value Reference Range Interpretation Comments POC Hemoglobin (test code = POC 11.6 14.0-18.0 Hemoglobin) [facility]2017-10-10 19:23:00 Test Item Value Reference Range Interpretation Comments POC BUN (test code = POC BUN) 35 7-22 [facility]2017-10-10 19:23:00 Test Item Value Reference Range Interpretation Comments POC Glucose (test code = POC Glucose) 118 70-99 [facility]2017-10-10 19:23:00 Test Item Value Reference Range Interpretation Comments POC Sodium (test code = POC Sodium) 142 135-145 [facility]2017-10-10 19:23:00 Test Item Value Reference Range Interpretation Comments POC Potassium (test code = POC 4.6 3.5-5.1 Potassium) [facility]2017-10-10 19:23:00 Test Item Value Reference Range Interpretation Comments POC Chloride (test code = POC Chloride) 101 95-109 [facility]2017-10-10 19:23:00 Test Item Value Reference Range Interpretation Comments POC Hemoglobin (test code = POC 11.6 14.0-18.0 Hemoglobin) [facility]2017-10-10 19:23:00 Test Item Value Reference Range Interpretation Comments POC Hematocrit (test code = POC 34.0 42.0-54.0 Hematocrit) [facility] [id number] 15:52:00 Test Item Value Reference Range Interpretation Comments POC Hemoglobin (test code = POC 12.2 14.0-18.0 Hemoglobin) [facility] CenterDodsbquSHRDJXGBJC0563-10-11 15:52:00 Test Item Value Reference Range Interpretation Comments POC Hematocrit (test code = POC 36.0 42.0-54.0 Hematocrit) [facility] [id number] 15:52:00 Test Item Value Reference Range Interpretation Comments POC BUN (test code = POC BUN) 33 7-22 [facility] [id number] 15:52:00 Test Item Value Reference Range Interpretation Comments POC Glucose (test code = POC Glucose) 173 70-99 [facility] [id number] 15:52:00 Test Item Value Reference Range Interpretation Comments POC Chloride (test code = POC Chloride) 100 95-109 [facility] CenterFvkizkzVPBNWZJMNK5798-26-28 15:52:00 Test Item Value Reference Range Interpretation Comments POC Potassium (test code = POC 4.3 3.5-5.1 Potassium) [facility] CenterEtyzltcMXIHLNEHQP3626-61-51 15:52:00 Test Item Value Reference Range Interpretation Comments POC Sodium (test code = POC Sodium) 142 135-145 [facility] Cent[id number] 15:52:00 Test Item Value Reference Range Interpretation Comments POC Hemoglobin (test code = POC 12.2 14.0-18.0 Hemoglobin) [facility] [id number] 15:52:00 Test Item Value Reference Range Interpretation Comments POC Hematocrit (test code = POC 36.0 42.0-54.0 Hematocrit) [facility] CenterMzserucPFOYYXJSRT7897-83-01 15:52:00 Test Item Value Reference Range Interpretation Comments POC BUN (test code = POC BUN) 33 7-22 [facility] CenterChekbtePRQRKZDTYR9766-56-94 15:52:00 Test Item Value Reference Range Interpretation Comments POC Glucose (test code = POC Glucose) 173 70-99 [facility] CenterGomczzkXVCFOABSQS3636-20-78 15:52:00 Test Item Value Reference Range Interpretation Comments POC Chloride (test code = POC Chloride) 100 95-109 [facility] CenterLamvskrIUZRMAFVZG8361-61-10 15:52:00 Test Item Value Reference Range Interpretation Comments POC Potassium (test code = POC 4.3 3.5-5.1 Potassium) [facility] CenterKnappqyIRDNEVPODR8688-76-93 15:52:00 Test Item Value Reference Range Interpretation Comments POC Sodium (test code = POC Sodium) 142 135-145 [facility]2017-07-13 20:33:00 Test Item Value Reference Range Interpretation Comments eGFR (test code = eGFR) 11 [facility]2017-07-13 20:33:00 Test Item Value Reference Range Interpretation Comments AGAP (test code = AGAP) 10.8 10.0-20.0 [facility]2017-07-13 20:33:00 Test Item Value Reference Range Interpretation Comments Calcium Lvl (test code = Calcium Lvl) 9.2 8.5-10.5 [facility]2017-07-13 20:33:00 Test Item Value Reference Range Interpretation Comments BUN (test code = BUN) 35 7-22 [facility]2017-07-13 20:33:00 Test Item Value Reference Range Interpretation Comments Creatinine Lvl (test code = Creatinine 5.40 0.50-1.40 Lvl) [facility]2017-07-13 20:33:00 Test Item Value Reference Range Interpretation Comments Glucose Lvl (test code = Glucose Lvl) 156 70-99 [facility]2017-07-13 20:33:00 Test Item Value Reference Range Interpretation Comments Sodium Lvl (test code = Sodium Lvl) 138 135-145 [facility]2017-07-13 20:33:00 Test Item Value Reference Range Interpretation Comments Potassium Lvl (test code = Potassium 3.8 3.5-5.1 Lvl) [facility]2017-07-13 20:33:00 Test Item Value Reference Range Interpretation Comments Chloride Lvl (test code = Chloride Lvl) 97 95-109 [facility]2017-07-13 20:33:00 Test Item Value Reference Range Interpretation Comments CO2 (test code = CO2) 34 24-32 [facility] CenterIaamunuIJNOHTMHLN3875-61-24 20:33:00 Test Item Value Reference Range Interpretation Comments Segs-Bands # (test code = Segs-Bands #) 5.4 1.5-8.1 [facility] CenterScmcxpwQAGVQZYDHA9008-58-10 20:33:00 Test Item Value Reference Range Interpretation Comments Basophils (test code = 0.5 See_Comment [Aut omated message] The Basophils) system which ge nerated this result tra nsmitted reference range : <=1.0. The reference r sabrina was not used to int erpret this result as normal/abnormal . [facility] CenterDkubpbzCCMAGIEJXJ0534-05-73 20:33:00 Test Item Value Reference Range Interpretation Comments Monocytes # (test code 1.1 See_Comment [Aut omated message] The = Monocytes #) system which generated this result tra nsmitted reference range : <=0.8. The reference r sabrina was not used to int erpret this result as normal/abnormal . [facility] CenterHibmdopLBKWIDZIZJ3431-61-30 20:33:00 Test Item Value Reference Range Interpretation Comments Lymphocytes # (test code = Lymphocytes 3.4 1.0-5.5 #) [facility] CenterQbmvvctZSSHCKECEW2865-87-32 20:33:00 Test Item Value Reference Range Interpretation Comments Basophils # (test code 0.1 See_Comment [Aut omated message] The = Basophils #) system which generated this result tra nsmitted reference range : <=0.2. The reference r sabrina was not used to int erpret this result as normal/abnormal . [facility] CenterXadnfbnHSAJETXKTL8214-00-88 20:33:00 Test Item Value Reference Range Interpretation Comments Eosinophils # (test code 0.4 See_Comment [A utomated message] The = Eosinophils #) system whic h generated this result tra nsmitted reference range : <=0.5. The reference r sabrina was not used to int erpret this result as normal/abnormal . [facility] CenterGvddhvsNSONAWSPPX3196-15-38 20:33:00 Test Item Value Reference Range Interpretation Comments Segs (test code = Segs) 52.7 45.0-75.0 [facility] CenterAmrqirwGGCNCUVSIE6917-88-58 20:33:00 Test Item Value Reference Range Interpretation Comments Lymphocytes (test code = Lymphocytes) 32.9 20.0-40.0 [facility] CenterDiuizndNHIMGBJNTE4878-57-06 20:33:00 Test Item Value Reference Range Interpretation Comments Monocytes (test code = Monocytes) 10.3 2.0-12.0 [facility] CenterRqqcoafZYWTQZJSZP0905-88-34 20:33:00 Test Item Value Reference Range Interpretation Comments Eosinophils (test code = 3.6 See_Comment [A utomated message] The Eosinophils) system which ge nerated this result tra nsmitted reference range : <=4.0. The reference r sabrina was not used to int erpret this result as normal/abnormal . [facility] CenterQcxgxxxAFGKEZCRGL4467-02-34 20:33:00 Test Item Value Reference Range Interpretation Comments MCV (test code = MCV) 91.1 80.0-94.0 [facility] CenterLfqbbbcWAOFOSFHCA1556-71-31 20:33:00 Test Item Value Reference Range Interpretation Comments RBC (test code = RBC) 4.52 4.70-6.10 [facility] CenterActqjqvWONZDVVUXM6098-57-87 20:33:00 Test Item Value Reference Range Interpretation Comments Hgb (test code = Hgb) 13.5 14.0-18.0 [facility] CenterHoftgikFCEVXOBSGN6900-95-97 20:33:00 Test Item Value Reference Range Interpretation Comments MCH (test code = MCH) 29.9 pg 27.0-31.0 [facility] CenterWalwsolTDHBFTZNEA5781-72-84 20:33:00 Test Item Value Reference Range Interpretation Comments Hct (test code = Hct) 41.2 42.0-54.0 [facility] CenterRofknjeTNEXFVWKFT8089-58-87 20:33:00 Test Item Value Reference Range Interpretation Comments MPV (test code = MPV) 8.1 7.4-10.4 [facility] CenterZohiwdtSSFIEWNLOZ7937-80-18 20:33:00 Test Item Value Reference Range Interpretation Comments MCHC (test code = MCHC) 32.8 32.0-36.0 [facility] CenterOcqvseqJEZQQHGHBB3981-16-42 20:33:00 Test Item Value Reference Range Interpretation Comments RDW (test code = RDW) 14.1 11.5-14.5 [facility] CenterTewxtydNGBXPFHHRK4338-06-73 20:33:00 Test Item Value Reference Range Interpretation Comments Platelet (test code = Platelet) 114 133-450 [facility] CenterEcaiyybFXJOMEGVAZ0713-96-83 20:33:00 Test Item Value Reference Range Interpretation Comments WBC (test code = WBC) 10.3 3.7-10.4 [facility]2017-07-13 20:33:00 Test Item Value Reference Range Interpretation Comments eGFR (test code = eGFR) 11 [facility]2017-07-13 20:33:00 Test Item Value Reference Range Interpretation Comments AGAP (test code = AGAP) 10.8 10.0-20.0 [facility]2017-07-13 20:33:00 Test Item Value Reference Range Interpretation Comments Calcium Lvl (test code = Calcium Lvl) 9.2 8.5-10.5 [facility]2017-07-13 20:33:00 Test Item Value Reference Range Interpretation Comments BUN (test code = BUN) 35 7-22 [facility]2017-07-13 20:33:00 Test Item Value Reference Range Interpretation Comments Creatinine Lvl (test code = Creatinine 5.40 0.50-1.40 Lvl) [facility]2017-07-13 20:33:00 Test Item Value Reference Range Interpretation Comments Glucose Lvl (test code = Glucose Lvl) 156 70-99 [facility]2017-07-13 20:33:00 Test Item Value Reference Range Interpretation Comments Sodium Lvl (test code = Sodium Lvl) 138 135-145 [facility]2017-07-13 20:33:00 Test Item Value Reference Range Interpretation Comments Potassium Lvl (test code = Potassium 3.8 3.5-5.1 Lvl) [facility]2017-07-13 20:33:00 Test Item Value Reference Range Interpretation Comments Chloride Lvl (test code = Chloride Lvl) 97 95-109 [facility]2017-07-13 20:33:00 Test Item Value Reference Range Interpretation Comments CO2 (test code = CO2) 34 24-32 [facility] CenterMmcbirrNKNPZTRYXN3647-72-99 20:33:00 Test Item Value Reference Range Interpretation Comments Segs-Bands # (test code = Segs-Bands #) 5.4 1.5-8.1 [facility] CenterVmnkihqYQCPERWQNK4969-60-60 20:33:00 Test Item Value Reference Range Interpretation Comments Basophils (test code = 0.5 See_Comment [Aut omated message] The Basophils) system which ge nerated this result tra nsmitted reference range : <=1.0. The reference r sabrina was not used to int erpret this result as normal/abnormal . [facility] CenterRfibhhkWIPLYUCLRL3084-41-52 20:33:00 Test Item Value Reference Range Interpretation Comments Monocytes # (test code 1.1 See_Comment [Aut omated message] The = Monocytes #) system which generated this result tra nsmitted reference range : <=0.8. The reference r sabrina was not used to int erpret this result as normal/abnormal . [facility] CenterWuqpceaZCIHZYOZQQ7734-06-67 20:33:00 Test Item Value Reference Range Interpretation Comments Lymphocytes # (test code = Lymphocytes 3.4 1.0-5.5 #) [facility] CenterRmwsmxmYWESWVQTEV8194-42-94 20:33:00 Test Item Value Reference Range Interpretation Comments Basophils # (test code 0.1 See_Comment [Aut omated message] The = Basophils #) system which generated this result tra nsmitted reference range : <=0.2. The reference r sabrina was not used to int erpret this result as normal/abnormal . [facility] CenterOclszzmDVBCAZWDAT1511-30-11 20:33:00 Test Item Value Reference Range Interpretation Comments Eosinophils # (test code 0.4 See_Comment [A utomated message] The = Eosinophils #) system whic h generated this result tra nsmitted reference range : <=0.5. The reference r sabrina was not used to int erpret this result as normal/abnormal . [facility] CenterQjzzrazTPWPAGSLSH8280-15-65 20:33:00 Test Item Value Reference Range Interpretation Comments Segs (test code = Segs) 52.7 45.0-75.0 [facility] CenterYbdpblbQPNUDWGZVW5203-51-19 20:33:00 Test Item Value Reference Range Interpretation Comments Lymphocytes (test code = Lymphocytes) 32.9 20.0-40.0 [facility] CenterLmzybhxMLDHAMUADA8035-88-22 20:33:00 Test Item Value Reference Range Interpretation Comments Monocytes (test code = Monocytes) 10.3 2.0-12.0 [facility] CenterCwzsldjXQYWTQZECK9171-43-14 20:33:00 Test Item Value Reference Range Interpretation Comments Eosinophils (test code = 3.6 See_Comment [A utomated message] The Eosinophils) system which ge nerated this result tra nsmitted reference range : <=4.0. The reference r sabirna was not used to int erpret this result as normal/abnormal . [facility] CenterJovlsmkQZNEUDIHXG4267-34-52 20:33:00 Test Item Value Reference Range Interpretation Comments MCV (test code = MCV) 91.1 80.0-94.0 [facility] CenterRryulpoIFXFDHRIOS0777-87-41 20:33:00 Test Item Value Reference Range Interpretation Comments RBC (test code = RBC) 4.52 4.70-6.10 [facility] CenterSjamyozLQFRPPAKWY1113-10-32 20:33:00 Test Item Value Reference Range Interpretation Comments Hgb (test code = Hgb) 13.5 14.0-18.0 [facility] CenterEpjlmydZPMUBUKSMP7434-45-71 20:33:00 Test Item Value Reference Range Interpretation Comments MCH (test code = MCH) 29.9 pg 27.0-31.0 [facility] CenterAhllshnIHTXDYGGID1850-90-66 20:33:00 Test Item Value Reference Range Interpretation Comments Hct (test code = Hct) 41.2 42.0-54.0 [facility] CenterSwveuscTOBNIYXDCE6855-92-76 20:33:00 Test Item Value Reference Range Interpretation Comments MPV (test code = MPV) 8.1 7.4-10.4 [facility] CenterHppkqmkMPYNYYUHXI7624-60-16 20:33:00 Test Item Value Reference Range Interpretation Comments MCHC (test code = MCHC) 32.8 32.0-36.0 [facility] CenterKekctumZENIEJPEHS3209-77-08 20:33:00 Test Item Value Reference Range Interpretation Comments RDW (test code = RDW) 14.1 11.5-14.5 [facility] CenterAeqeaqiQXJXLFKOBG4869-24-71 20:33:00 Test Item Value Reference Range Interpretation Comments Platelet (test code = Platelet) 114 133-450 [facility] CenterXdmxftrVTUEDJMBZH9753-70-88 20:33:00 Test Item Value Reference Range Interpretation Comments WBC (test code = WBC) 10.3 3.7-10.4 [facility] CenterSbylricFPIRYXAEQL2311-11-00 15:26:00 Test Item Value Reference Range Interpretation Comments POC Hemoglobin (test code = POC 13.9 14.0-18.0 Hemoglobin) [facility] CenterEatzahtWNQISTLLTS9579-58-92 15:26:00 Test Item Value Reference Range Interpretation Comments POC Glucose (test code = POC Glucose) 126 70-99 [facility] CenterBtbetluEJLELCTPZI9219-65-73 15:26:00 Test Item Value Reference Range Interpretation Comments POC BUN (test code = POC BUN) 43 7-22 [facility] CenterHnoctxvZWWPDAXOSO2939-88-17 15:26:00 Test Item Value Reference Range Interpretation Comments POC Hematocrit (test code = POC 41.0 42.0-54.0 Hematocrit) [facility] CenterFxkbkqxTRQRIFJPWK8567-86-59 15:26:00 Test Item Value Reference Range Interpretation Comments POC Potassium (test code = POC 4.1 3.5-5.1 Potassium) [facility] CenterBuhfiqvAHQQTVPJNW9272-49-83 15:26:00 Test Item Value Reference Range Interpretation Comments POC Chloride (test code = POC Chloride) 103 95-109 [facility] CenterAixlykfTXTZYYRTDJ8595-29-62 15:26:00 Test Item Value Reference Range Interpretation Comments POC Sodium (test code = POC Sodium) 142 135-145 [facility] CenterLqrgeolXFZSMJWGTU8942-95-34 15:26:00 Test Item Value Reference Range Interpretation Comments POC Hemoglobin (test code = POC 13.9 14.0-18.0 Hemoglobin) [facility] CenterMwsforcPODBULCTEK5043-90-41 15:26:00 Test Item Value Reference Range Interpretation Comments POC Glucose (test code = POC Glucose) 126 70-99 [facility] CenterNlzvhycBFMOMUWTGV1015-11-35 15:26:00 Test Item Value Reference Range Interpretation Comments POC BUN (test code = POC BUN) 43 7-22 [facility] CenterUbcvuruMAOIHOFIMY5522-81-26 15:26:00 Test Item Value Reference Range Interpretation Comments POC Hematocrit (test code = POC 41.0 42.0-54.0 Hematocrit) [facility] CenterMmbekqmDCBQQDKTYX0980-42-79 15:26:00 Test Item Value Reference Range Interpretation Comments POC Potassium (test code = POC 4.1 3.5-5.1 Potassium) [facility] CenterSxukoqgVLHEHEUVKL1842-89-42 15:26:00 Test Item Value Reference Range Interpretation Comments POC Chloride (test code = POC Chloride) 103 95-109 [facility] CenterWmzxczwABZHDXAYET5341-86-82 15:26:00 Test Item Value Reference Range Interpretation Comments POC Sodium (test code = POC Sodium) 142 135-145 [facility]CgbrqroKMXZHJAFXYNW6537-78-60 11:43:00 Test Item Value Reference Range Interpretation Comments POC Sodium (test code = POC Sodium) 141 135-145 [facility] HospitalNhfzivnNCRCQFQBUITD7722-69-84 11:43:00 Test Item Value Reference Range Interpretation Comments POC BUN (test code = POC BUN) 46 7-22 [facility] HospitalEgwdajiTHLOCUNWJARX5543-63-20 11:43:00 Test Item Value Reference Range Interpretation Comments POC Chloride (test code = POC Chloride) 103 95-109 [facility] HospitalSalvploICCALHRMLMXQ1540-36-08 11:43:00 Test Item Value Reference Range Interpretation Comments POC Potassium (test code = POC 4.3 3.5-5.1 Potassium) [facility] HospitalXbgttwnTKCJMMHHHMRY9060-73-58 11:43:00 Test Item Value Reference Range Interpretation Comments POC Glucose (test code = POC Glucose) 163 70-99 [facility] HospitalDfvgltiMJXSERERTVGZ1702-75-36 11:43:00 Test Item Value Reference Range Interpretation Comments POC Hemoglobin (test code = POC 15.6 14.0-18.0 Hemoglobin) [facility] HospitalQrephllRXCFLYSWMCKM7873-05-77 11:43:00 Test Item Value Reference Range Interpretation Comments POC Hematocrit (test code = POC 46.0 42.0-54.0 Hematocrit) [facility] HospitalLqtaszvSXJMBICSFUGQ6482-42-03 11:43:00 Test Item Value Reference Range Interpretation Comments POC Sodium (test code = POC Sodium) 141 135-145 [facility] HospitalNttzrbxJTZXQXLKABZJ4397-72-03 11:43:00 Test Item Value Reference Range Interpretation Comments POC BUN (test code = POC BUN) 46 7-22 [facility] HospitalDpzhdcgJOEHHDUUQOKO6040-86-92 11:43:00 Test Item Value Reference Range Interpretation Comments POC Chloride (test code = POC Chloride) 103 95-109 [facility] HospitalJeyzjolCJKDCDDNFMED6408-18-91 11:43:00 Test Item Value Reference Range Interpretation Comments POC Potassium (test code = POC 4.3 3.5-5.1 Potassium) [facility] HospitalOxuxotlICYYXTSWOUIL1939-80-77 11:43:00 Test Item Value Reference Range Interpretation Comments POC Glucose (test code = POC Glucose) 163 70-99 [facility] HospitalFgdwusrXQYMPSQCEDBP9215-73-95 11:43:00 Test Item Value Reference Range Interpretation Comments POC Hemoglobin (test code = POC 15.6 14.0-18.0 Hemoglobin) [facility] HospitalRysplwpKOBWZRSIWXBX5263-41-66 11:43:00 Test Item Value Reference Range Interpretation Comments POC Hematocrit (test code = POC 46.0 42.0-54.0 Hematocrit) [facility] HospitalEjqnjzaBRNIBKXWKFTV5840-66-45 15:22:00 Test Item Value Reference Range Interpretation Comments CO2 (test code = CO2) 28 24-32 [facility] HospitalUhkgmwiZXGMOLTJXTRR8267-54-17 15:22:00 Test Item Value Reference Range Interpretation Comments Sodium Lvl (test code = Sodium Lvl) 139 135-145 [facility] HospitalHwjpixcCQHPHQTYVNPV1442-69-28 15:22:00 Test Item Value Reference Range Interpretation Comments Potassium Lvl (test code = Potassium 4.1 3.5-5.1 Lvl) [facility] HospitalRteeeczHXAAOCIVMORX1925-98-92 15:22:00 Test Item Value Reference Range Interpretation Comments Creatinine Lvl (test code = Creatinine 5.30 0.50-1.40 Lvl) [facility] HospitalCcvdqksIODBYILTBWXE2990-11-23 15:22:00 Test Item Value Reference Range Interpretation Comments BUN (test code = BUN) 47 7-22 [facility] HospitalQolxvwtFFZZZFZZFQDN5855-50-96 15:22:00 Test Item Value Reference Range Interpretation Comments Glucose Lvl (test code = Glucose Lvl) 129 70-99 [facility] CenterIkdxbdsWBENTZYCSB8238-76-68 15:22:00 Test Item Value Reference Range Interpretation Comments PT (test code = PT) 12.7 s 12.0-14.7 [facility] CenterHearzjhASQINGOPXG1615-41-05 15:22:00 Test Item Value Reference Range Interpretation Comments INR (test code = INR) 0.93 0.85-1.17 [facility] CenterLimrpwmJNODYWXMMN9148-25-97 15:22:00 Test Item Value Reference Range Interpretation Comments PTT (test code = PTT) 28.3 s 22.9-35.8 [facility] CenterVbdrsvcBWCTXDITPW7094-49-55 15:22:00 Test Item Value Reference Range Interpretation Comments MPV (test code = MPV) 8.7 7.4-10.4 [facility] CenterMxyslolLLGQVRIMDM0597-07-66 15:22:00 Test Item Value Reference Range Interpretation Comments Platelet (test code = Platelet) 120 133-450 [facility] CenterVfeditgMCMODPNSGC8789-31-28 15:22:00 Test Item Value Reference Range Interpretation Comments MCHC (test code = MCHC) 32.9 32.0-36.0 [facility]dt[facility] KGRTKTM3603-90-88 15:22:00 Test Item Value Reference Range Interpretation Comments ABO/Rh (test code = ABO/Rh) O POS [facility]icsC[facility] EALFFVT8040-20-67 15:22:00 Test Item Value Reference Range Interpretation Comments Antibody Scrn (test Negative (02/24/17 10:22 code = Antibody Scrn) AM) [facility] HospitalOhbhnvsWBDYVSETOQEO5090-60-71 15:22:00 Test Item Value Reference Range Interpretation Comments AGAP (test code = AGAP) 13.1 10.0-20.0 [facility] HospitalTqmqvhiPBZOLAORVDGC1236-73-03 15:22:00 Test Item Value Reference Range Interpretation Comments eGFR (test code = eGFR) 11 [facility] HospitalRswioskCQFRXMOKVKNK7728-23-37 15:22:00 Test Item Value Reference Range Interpretation Comments Calcium Lvl (test code = Calcium Lvl) 9.3 8.5-10.5 [facility] HospitalKdtobfyTBGHFSLSSHKD6125-42-20 15:22:00 Test Item Value Reference Range Interpretation Comments Chloride Lvl (test code = Chloride Lvl) 102 95-109 [facility] HospitalTctszltLKILEIBWFQIF0354-07-40 15:22:00 Test Item Value Reference Range Interpretation Comments CO2 (test code = CO2) 28 24-32 [facility] HospitalLqhtleaTUFQRBHKXNRL9230-05-22 15:22:00 Test Item Value Reference Range Interpretation Comments Sodium Lvl (test code = Sodium Lvl) 139 135-145 [facility] HospitalNnhovnhPBOKVJARAIFN7676-49-92 15:22:00 Test Item Value Reference Range Interpretation Comments Potassium Lvl (test code = Potassium 4.1 3.5-5.1 Lvl) [facility] HospitalCzalfccPUXLDDOJBQMN4753-86-05 15:22:00 Test Item Value Reference Range Interpretation Comments Creatinine Lvl (test code = Creatinine 5.30 0.50-1.40 Lvl) [facility] HospitalNthrrajHYEOJPEJFGQA7946-82-22 15:22:00 Test Item Value Reference Range Interpretation Comments BUN (test code = BUN) 47 7-22 [facility] CenterOblmldiEZSEDDDVFB7245-67-41 15:22:00 Test Item Value Reference Range Interpretation Comments RDW (test code = RDW) 14.7 11.5-14.5 [facility] HospitalBqmuwsnBQTDIOCENDLQ3941-30-93 15:22:00 Test Item Value Reference Range Interpretation Comments Glucose Lvl (test code = Glucose Lvl) 129 70-99 [facility] CenterFflmrjdQNUQBSNOXP4437-34-10 15:22:00 Test Item Value Reference Range Interpretation Comments PT (test code = PT) 12.7 s 12.0-14.7 [facility] CenterLleoxauMIZAOJCDHO2531-28-57 15:22:00 Test Item Value Reference Range Interpretation Comments INR (test code = INR) 0.93 0.85-1.17 [facility] CenterJqmtlsyKCFBLHNTIT8371-92-96 15:22:00 Test Item Value Reference Range Interpretation Comments PTT (test code = PTT) 28.3 s 22.9-35.8 [facility] CenterDnyaabzMSNRBKYHYV5754-18-49 15:22:00 Test Item Value Reference Range Interpretation Comments MPV (test code = MPV) 8.7 7.4-10.4 [facility] CenterSgmyfbcOPXOEWTXNL6300-85-65 15:22:00 Test Item Value Reference Range Interpretation Comments Platelet (test code = Platelet) 120 133-450 [facility] CenterKzlyxakSKDRORUNSG8402-67-20 15:22:00 Test Item Value Reference Range Interpretation Comments MCHC (test code = MCHC) 32.9 32.0-36.0 [facility] CenterIdzybdzPPVRWKXWQP6331-73-87 15:22:00 Test Item Value Reference Range Interpretation Comments RDW (test code = RDW) 14.7 11.5-14.5 [facility] CenterMtgtmuhSAKAXKDZZS6768-70-83 15:22:00 Test Item Value Reference Range Interpretation Comments RBC (test code = RBC) 4.73 4.70-6.10 [facility] CenterZrcqgaqIBLBYJLWHG1145-81-34 15:22:00 Test Item Value Reference Range Interpretation Comments Hgb (test code = Hgb) 14.1 14.0-18.0 [facility] CenterXwcqfltOFSOCROXUT2051-27-72 15:22:00 Test Item Value Reference Range Interpretation Comments WBC (test code = WBC) 12.8 3.7-10.4 [facility] CenterGaxbakwAKRHZRSPNK3361-00-68 15:22:00 Test Item Value Reference Range Interpretation Comments MCV (test code = MCV) 90.2 80.0-94.0 [facility] CenterRrnblpgWBJPWPSFQE2350-44-82 15:22:00 Test Item Value Reference Range Interpretation Comments Hct (test code = Hct) 42.7 42.0-54.0 [facility] CenterBhbvrvqLKMZMBIQBL1849-46-09 15:22:00 Test Item Value Reference Range Interpretation Comments MCH (test code = MCH) 29.7 pg 27.0-31.0 [facility] CenterBznhrllVCUXHIZTDC7230-17-69 15:22:00 Test Item Value Reference Range Interpretation Comments Basophils # (test code 0.1 See_Comment [Aut omated message] The = Basophils #) system which generated this result tra nsmitted reference range : <=0.2. The reference r sabrina was not used to int erpret this result as normal/abnormal . [facility] CenterGebgyoxPSJLKCBXJW0737-46-27 15:22:00 Test Item Value Reference Range Interpretation Comments Monocytes (test code = Monocytes) 8.0 2.0-12.0 [facility] CenterQvpmmpbFTMOOJCTGN7065-37-04 15:22:00 Test Item Value Reference Range Interpretation Comments Basophils (test code = 1.0 See_Comment [Aut omated message] The Basophils) system which ge nerated this result tra nsmitted reference range : <=1.0. The reference r sabrina was not used to int erpret this result as normal/abnormal . [facility] CenterSflqlhpLUIELOEOKQ9308-27-94 15:22:00 Test Item Value Reference Range Interpretation Comments Segs-Bands # (test code = Segs-Bands #) 7.6 1.5-8.1 [facility] CenterNtqpmihVYGNGPNHDM2046-79-85 15:22:00 Test Item Value Reference Range Interpretation Comments Eosinophils (test code = 3.4 See_Comment [A utomated message] The Eosinophils) system which ge nerated this result tra nsmitted reference range : <=4.0. The reference r sabrina was not used to int erpret this result as normal/abnormal . [facility] CenterZdanmcvNIBDEMAAIB6513-66-82 15:22:00 Test Item Value Reference Range Interpretation Comments Lymphocytes # (test code = Lymphocytes 3.6 1.0-5.5 #) [facility] CenterBceuclsKQPXXVJWVF7164-56-53 15:22:00 Test Item Value Reference Range Interpretation Comments RBC (test code = RBC) 4.73 4.70-6.10 [facility] CenterKxefopuMECTPJFXVI2352-51-07 15:22:00 Test Item Value Reference Range Interpretation Comments Lymphocytes (test code = Lymphocytes) 28.2 20.0-40.0 [facility] CenterSgygruoUQHQJESGXD7320-64-92 15:22:00 Test Item Value Reference Range Interpretation Comments Eosinophils # (test code 0.4 See_Comment [A utomated message] The = Eosinophils #) system whic h generated this result tra nsmitted reference range : <=0.5. The reference r sabrina was not used to int erpret this result as normal/abnormal . [facility] CenterAdbxaegVTEDUZYHCN1944-17-99 15:22:00 Test Item Value Reference Range Interpretation Comments Monocytes # (test code 1.0 See_Comment [Aut omated message] The = Monocytes #) system which generated this result tra nsmitted reference range : <=0.8. The reference r sabrina was not used to int erpret this result as normal/abnormal . [facility] CenterBldqgelJBRRINLHIX3265-50-09 15:22:00 Test Item Value Reference Range Interpretation Comments Segs (test code = Segs) 59.4 45.0-75.0 [facility] ONLWEWMIT5763-04-64 15:22:00 Test Item Value Reference Range Interpretation Comments Hgb A1C (test code = Hgb A1C) 8.0 [facility] CenterIgbjchyGJSUGPUADT6227-18-23 15:22:00 Test Item Value Reference Range Interpretation Comments Hgb (test code = Hgb) 14.1 14.0-18.0 [facility] CenterQcriiicSYNOJEMGOR9876-75-41 15:22:00 Test Item Value Reference Range Interpretation Comments WBC (test code = WBC) 12.8 3.7-10.4 [facility] CenterKqebtrvFOJUQWKUNU5526-73-24 15:22:00 Test Item Value Reference Range Interpretation Comments MCV (test code = MCV) 90.2 80.0-94.0 [facility] CenterNoyigegCJIDZNKPIF1593-55-12 15:22:00 Test Item Value Reference Range Interpretation Comments Hct (test code = Hct) 42.7 42.0-54.0 [facility] CenterAfqbkqoARUXDGBJIE4993-66-71 15:22:00 Test Item Value Reference Range Interpretation Comments MCH (test code = MCH) 29.7 pg 27.0-31.0 [facility] CenterAedzfdqMWYQRFMBIE3227-31-04 15:22:00 Test Item Value Reference Range Interpretation Comments Basophils # (test code 0.1 See_Comment [Aut omated message] The = Basophils #) system which generated this result tra nsmitted reference range : <=0.2. The reference r sabrina was not used to int erpret this result as normal/abnormal . [facility] CenterIikzhfwPCWLFWHXDJ8589-32-63 15:22:00 Test Item Value Reference Range Interpretation Comments Monocytes (test code = Monocytes) 8.0 2.0-12.0 [facility] CenterHhhjtruOFTLNIXXSW9488-55-22 15:22:00 Test Item Value Reference Range Interpretation Comments Basophils (test code = 1.0 See_Comment [Aut omated message] The Basophils) system which ge nerated this result tra nsmitted reference range : <=1.0. The reference r sabrina was not used to int erpret this result as normal/abnormal . [facility] CenterMizfqgaFOMKGQJJQM4344-99-56 15:22:00 Test Item Value Reference Range Interpretation Comments Segs-Bands # (test code = Segs-Bands #) 7.6 1.5-8.1 [facility] CenterJmvyqohKKKNNKFGUC9692-75-47 15:22:00 Test Item Value Reference Range Interpretation Comments Eosinophils (test code = 3.4 See_Comment [A utomated message] The Eosinophils) system which ge nerated this result tra nsmitted reference range : <=4.0. The reference r sabrina was not used to int erpret this result as normal/abnormal . [facility] CenterSpykqxbQCNIUUWQNU3526-02-31 15:22:00 Test Item Value Reference Range Interpretation Comments Lymphocytes # (test code = Lymphocytes 3.6 1.0-5.5 #) [facility] CenterAsfmmngFOLQSUSKTX4243-62-34 15:22:00 Test Item Value Reference Range Interpretation Comments Lymphocytes (test code = Lymphocytes) 28.2 20.0-40.0 [facility] CenterBuguhgoFAKKVYVDIW9361-37-74 15:22:00 Test Item Value Reference Range Interpretation Comments Eosinophils # (test code 0.4 See_Comment [A utomated message] The = Eosinophils #) system whic h generated this result tra nsmitted reference range : <=0.5. The reference r sabrina was not used to int erpret this result as normal/abnormal . [facility] CenterXmpxmfzLLIUSGIUTW4519-09-67 15:22:00 Test Item Value Reference Range Interpretation Comments Monocytes # (test code 1.0 See_Comment [Aut omated message] The = Monocytes #) system which generated this result tra nsmitted reference range : <=0.8. The reference r sabrina was not used to int erpret this result as normal/abnormal . [facility] CenterYsiqrgoDCNIPIVSOA8933-20-35 15:22:00 Test Item Value Reference Range Interpretation Comments Segs (test code = Segs) 59.4 45.0-75.0 [facility] GZNGYOLNX6254-38-29 15:22:00 Test Item Value Reference Range Interpretation Comments Hgb A1C (test code = Hgb A1C) 8.0 [facility] SXQWIHT5193-21-38 15:22:00 Test Item Value Reference Range Interpretation Comments ABO/Rh (test code = ABO/Rh) O POS [facility] TEHPJAY1074-80-62 15:22:00 Test Item Value Reference Range Interpretation Comments Antibody Scrn (test Negative (02/24/17 10:22 code = Antibody Scrn) AM) [facility] HospitalQachyobRINPACRHAYVA7261-21-78 15:22:00 Test Item Value Reference Range Interpretation Comments AGAP (test code = AGAP) 13.1 10.0-20.[address] [facility]GztkdqnTMLQHTEGHIJO7038-60-91 15:22:00 Test Item Value Reference Range Interpretation Comments eGFR (test code = eGFR) [address] [facility] HospitalJiwjnvuHDYTSCSVDAFQ0336-15-48 15:22:00 Test Item Value Reference Range Interpretation Comments Calcium Lvl (test code = Calcium Lvl) 9.3 8.5-10.[address] [id number] 15:22:00 Test Item Value Reference Range Interpretation Comments Chloride Lvl (test code = Chloride Lvl) 102 95-109 [facility]
--- NOTE | 2022-07-07 21:57 | RAD REPORT ---
EXAM DESCRIPTION: US - Extremity Venous Uni Ltd - 07/07/2022 8:53 pm CLINICAL HISTORY: PAIN COMPARISON: None. TECHNIQUE: Real-time sonographic evaluation of the right lower extremity deep venous systems was per formed. FINDINGS: Normal compressibility, flow augmentation, phasic flow and spontaneous flow are identified in the right lower extremity common femoral, superficial femoral, popliteal and posterior tibial vei ns. Linear echogenic focus in the femoral vein is identified. This was not seen on the comparison. Th is is probably the sequela of old thrombus. IMPRESSION: No acute DVT in the right lower extremity. Linear echogenic focus in the mid right femoral vein is probably the sequela of an old thrombus.
--- NOTE | 2022-07-07 22:03 | ER ---
Nurse's Notes [facility] Name: Richard Rodriguez Age: 67 yrs Sex: Male : 1955 Arrival Date: 07/07/2022 Time: 19:39 Bed 15 Private MD: Diagnosis: Pain in right knee Presentation: 07/07 20:10 Chief complaint: Patient states: Pain to right leg/swelling since today. Coronavirus ph screen: At this time, the client does not indicate any symptoms associated with coronavirus-19. Ebola Screen: No symptoms or risks identified at this time. Initial Sepsis Screen: Does the patient meet any 2 criteria? No. Patient's initial sepsis screen is negative. Does the patient have a suspected source of infection? No. Patient's initial sepsis screen is negative. Risk Assessment: Do you want to hurt yourself or someone else? Patient reports no desire to harm self or others. Onset of symptoms was July 07, 2022. Care prior to arrival: CPR. 20:10 Method Of Arrival: Wheelchair ph 20:10 Acuity: JERAD 3 ph Triage Assessment: 20:10 General: Appears in no apparent distress. comfortable, Behavior is calm, cooperative, ph appropriate for age. Pain: Complains of pain in right knee Pain does not radiate. Pain currently is 9 out of 10 on a pain scale. Quality of pain is described as throbbing, Pain began gradually, Is continuous. EENT: No signs and/or symptoms were reported regarding the EENT system. Neuro: Level of Consciousness is awake, alert, obeys commands, Oriented to person, place, time, situation, Appropriate for age. Cardiovascular: Capillary refill < 3 seconds Patient's skin is warm and dry. Respiratory: Airway is patent Respiratory effort is even, unlabored. GI: Abdomen is round distended, Reports. : No signs and/or symptoms were reported regarding the genitourinary system. Derm: No signs and/or symptoms reported regarding the dermatologic system. Musculoskeletal: No signs and/or symptoms reported regarding the musculoskeletal system. Historical: - Allergies: 20:10 No Known Allergies; ph - PMHx: 20:10 Diabetes - IDDM; CVA; Gout; Hyperlipidemia; Hypertension; Dialysis; Myocardial ph infarction; Sleep Apnea; - Immunization history:: Adult Immunizations up to date, Client reports receiving the 2nd dose of the Covid vaccine. - Social history:: Smoking status: Patient denies any tobacco usage or history of. Patient/guardian denies using alcohol, the patient reports quitting approximately 10 years ago. - Family history:: not pertinent. Vital Signs: 20:10 BP 154 / 59; Pulse 89; Resp 18; Temp 98.3(O); Pulse Ox 96% on R/A; Weight 93.44 kg; ph Height 5 ft. 10 in. (177.80 cm); Pain 8/10; 20:10 Body Mass Index 29.56 (93.44 kg, 177.80 cm) ph ED Course: 19:39 Patient arrived in ED. dt4 20:04 Jeet Dos Santos MD is Attending Physician. rt 20:10 Triage completed. ph 20:10 Arm band placed on right wrist. ph 20:23 Chris Hutton, RN is Primary Nurse. jb4 20:55 Extremity Venous Uni Ltd US In Process Unspecified. EDMS Administered Medications: No medications were administered Outcome: 22:03 Discharge ordered by . rt 22:13 Patient left the ED. jb4 Signatures: Dispatcher [employer] EDMS Lali Lagunas RN RN Chris Hutton RN RN jb4 Makeda Guevara dt4 Jeet Dos Santos MD MD rt
--- NOTE | 2022-07-07 22:04 | EDPHYS ---
Physician Documentation [facility] Name: Richard Rodriguez Age: 67 yrs Sex: Male : 1955 Arrival Date: 07/07/2022 Time: 19:39 Bed 15 Private MD: ED Physician Jeet Dos Santos HPI: 07/07 20:14 This 67 yrs old Male presents to ER via Wheelchair with complaints of Leg Swelling. rt 20:14 The patient presents with pain, swelling. The complaints affect the right knee. Onset: rt The symptoms/episode began/occurred this morning. Modifying factors: The symptoms are alleviated by nothing. the symptoms are aggravated by movement, weight bearing. Associated signs and symptoms: The patient has no apparent associated signs or symptoms. Treatment prior to arrival includes: over the counter medications, Tylenol. Severity of symptoms: At their worst the symptoms were moderate. Patient who undergoes Wednesday, , Wednesday dialysis presents to the ED with pain, swelling to the right knee. The patient denies any injury, redness, fever. Patient completed dialysis today without issue. Denies other acute complaints at this time. Denies chest pain, shortness of breath. The patient's is concerned that he may have a blood clot.. Historical: - Allergies: 20:10 No Known Allergies; ph - PMHx: 20:10 Diabetes - IDDM; CVA; Gout; Hyperlipidemia; Hypertension; Dialysis; Myocardial ph infarction; Sleep Apnea; - Immunization history:: Adult Immunizations up to date, Client reports receiving the 2nd dose of the Covid vaccine. - Social history:: Smoking status: Patient denies any tobacco usage or history of. Patient/guardian denies using alcohol, the patient reports quitting approximately 10 years ago. - Family history:: not pertinent. ROS: 20:14 Constitutional: Negative for fever, chills, and weight loss, Eyes: Negative for injury, rt pain, redness, and discharge, ENT: Negative for injury, pain, and discharge, Cardiovascular: Negative for chest pain, palpitations, and edema, Respiratory: Negative for shortness of breath, cough, wheezing, and pleuritic chest pain, Abdomen/GI: Negative for abdominal pain, nausea, vomiting, diarrhea, and constipation, Skin: Negative for injury, rash, and discoloration, Neuro: Negative for headache, weakness, numbness, tingling, and seizure, Psych: Negative for depression, anxiety, suicide ideation, homicidal ideation, and hallucinations. 20:14 MS/extremity: Positive for pain, swelling. Exam: 20:14 Constitutional: This is a well developed, well nourished patient who is awake, alert, rt and in no acute distress. Head/Face: Normocephalic, atraumatic. Eyes: Pupils equal round and reactive to light, extra-ocular motions intact. Lids and lashes normal. Conjunctiva and sclera are non-icteric and not injected. Cornea within normal limits. Periorbital areas with no swelling, redness, or edema. ENT: Nares patent. No nasal discharge, no septal abnormalities noted. Tympanic membranes are normal and external auditory canals are clear. Oropharynx with no redness, swelling, or masses, exudates, or evidence of obstruction, uvula midline. Mucous membranes moist. Neck: Trachea midline, no thyromegaly or masses palpated, and no cervical lymphadenopathy. Supple, full range of motion without nuchal rigidity, or vertebral point tenderness. No Meningismus. Cardiovascular: Regular rate and rhythm with a normal S1 and S2. No gallops, murmurs, or rubs. Normal PMI, no JVD. No pulse deficits. Respiratory: Lungs have equal breath sounds bilaterally, clear to auscultation and percussion. No rales, rhonchi or wheezes noted. No increased work of breathing, no retractions or nasal flaring. Abdomen/GI: Soft, non-tender, with normal bowel sounds. No distension or tympany. No guarding or rebound. No evidence of tenderness throughout. Skin: Warm, dry with normal turgor. Normal color with no rashes, no lesions, and no evidence of cellulitis. Neuro: Awake and alert, GCS 15, oriented to person, place, time, and situation. Cranial nerves II-XII grossly intact. Motor strength 5/5 in all extremities. Sensory grossly intact. Cerebellar exam normal. Normal gait. Psych: Awake, alert, with orientation to person, place and time. Behavior, mood, and affect are within normal limits. 20:14 Musculoskeletal/extremity: Mild edema noted to the right lower extremity, pulses, motor, sensation intact, no popliteal fossa tenderness, mild tenderness just superior to the knee. Full range of motion, no joint laxity.. Vital Signs: 20:10 BP 154 / 59; Pulse 89; Resp 18; Temp 98.3(O); Pulse Ox 96% on R/A; Weight 93.44 kg; ph Height 5 ft. 10 in. (177.80 cm); Pain 8/10; 20:10 Body Mass Index 29.56 (93.44 kg, 177.80 cm) ph MDM: 20:05 Patient medically screened. rt 22:03 Differential diagnosis: DVT, septic arthritis, arthritis. Data reviewed: vital signs, rt radiologic studies. 22:03 ED course: Presents to the ED with right knee pain as well as reported swelling. rt Ultrasound is negative for DVT. Patient is refusing pain medications in the ED. I suspect arthritic changes. He is adamant that there was no trauma, I do not believe that radiography is indicated. No clinical evidence to suggest a septic arthritis, compartment syndrome. Stable for outpatient care, return precautions discussed.. 07/07 20:12 Order name: Extremity Venous Uni Ltd US; Complete Time: 21:58 rt Administered Medications: No medications were administered Disposition Summary: 07/07/22 22:03 Discharge Ordered Location: Home rt Problem: new rt Symptoms: are unchanged rt Condition: Stable rt Diagnosis - Pain in right knee rt Followup: rt - With: Private Physician - When: 2 - 3 days - Reason: Re-evaluation by your physician Discharge Instructions: - Discharge Summary Sheet rt - Arthritis rt - Acute Knee Pain, Adult rt Forms: - Medication Reconciliation Form rt - Thank You Letter rt - Antibiotic Education rt - Prescription Opioid Use rt Signatures: Dispatcher [employer] Lali Groves RN RN ph Jeet Dos Santos MD MD rt
[2022-07-07 22:47] VITALS: BP 154/59; TEMP 98.3; O2SAT 96
== END 2022-07-07 22:13 | disposition home or self-care (01) ==
LOC: ER 19:36
DX: M25.561 Pain in right knee (principal)
CPT/HCPCS: 93971; 99282

== ENCOUNTER 2022-10-13 10:46 | Day surgery (SDC) | payer OTHER ==
[2022-10-08 16:16] LABS: Absolute Lymphocytes (CBC) 1.7 K/uL (0.7-4.9); Hematocrit 33.5 % (39.6-49.0); MCV 94.1 fL (80-100); MPV 8.6 fL (7.6-11.3); RBC Red Blood Cell Count 3.56 M/uL (4.33-5.43)
[2022-10-08 16:21] LABS: Protime INR 0.99
--- NOTE | 2022-10-08 16:39 | RAD REPORT ---
EXAM DESCRIPTION: Donaldo Pa And Lat (2 Views)10/08/2022 4:21 pm CLINICAL HISTORY: Preop cardiac catheterization COMPARISON: 2020 FINDINGS: Moderate loculated right pleural effusion Small left pleural effusion Mild right basilar lung atelectasis. Left lung appears clear of acute infiltrate. Heart is mildly enlarged Postsurgical changes involve the chest
[2022-10-08 16:43] LABS: Potassium 4.1 mmol/L (3.5-5.1)
--- NOTE | 2022-10-09 16:02 | EKG ---
Test Date: 2022-10-08 Test Time: 15:49:17 Cob Sawyer: LEAH MEASUREMENT RESULTS: Intervals: Rate: 77 MO: 220 QRSD: 142 QT: 424 QTc: 479 [place]: P: MO: 220 QRS: -27 T: 84 INTERPRETIVE STATEMENTS: Sinus rhythm with 1st degree AV block Right bundle branch block Inferior infarct, age undetermined Anteroseptal infarct, age undetermined Abnormal ECG Compared to ECG 03/10/2021 21:29:51 First degree AV block now present Right bundle-branch block now present Myocardial infarct finding still present Electronically Signed On 10-09-22 16:00:23 HEBREW PROFESSOR by José Zimmerman
[2022-10-13] MEDS ORDERED: LIDOCAINE 1% 20 ML MDV ONE (10:48)
[2022-10-13] MEDS ORDERED: FENTANYL CITR 100 MCG/2 ML ONE (10:48)
[2022-10-13] MEDS ORDERED: HEPA 1000U/500MLS 2,000 UNIT/1,000 ML BAG IV ONE (10:48)
[2022-10-13] MEDS ORDERED: MIDAZOLAM HCL 2 MG/2 ML INJ ONE (10:48)
[2022-10-13] MEDS ORDERED: HEPARIN 5000 UNIT/ML 1 ML VIAL ONE (10:49)
[2022-10-13] MEDS ORDERED: ATROPINE SULF 1 MG/10 ML SYR IV ONE (10:49)
[2022-10-13] MEDS ORDERED: HEPARIN 10,000 UNIT/10 ML VIAL IV ONE (10:49)
[2022-10-13] MEDS ORDERED: VERAPAMIL HCL 10 MG/4 ML VIAL IV ONE (10:49)
[2022-10-13] MEDS ORDERED: NA CHLORIDE 0.9% 500 ML ONE (10:52)
[2022-10-13] MEDS ORDERED: HYDRALAZINE HCL 20 MG/ML VIAL ONE ×2 (11:58→14:40)
[2022-10-13 14:46] VITALS: TEMP 97
[2022-10-13 15:29] VITALS: BP 174/68; O2SAT 95
--- NOTE | 2022-10-13 16:47 | OP ---
Date of Procedure: 10/13/2022 Surgeon: MARIPOSA QUEEN Procedures Performed: 1.Peripheral angiogram. 2.Bilateral selective renal angiogram. Indication: 1.PAD. 2.End-stage renal disease, planning for kidney transplant. Access: Right femoral artery 4-Ethiopian closed with manual pressure. Complications: None. Bleeding: Less than 10 mL. Description Of Procedure: After risks, benefits, alternatives were explained, the patient agreed to procedure and signed informed consent. The [facility], prepped and draped in the usual sterile fashion. Then, I accessed right femoral artery using micropuncture kit, ultrasound guidance and fluoroscopy, placed 4-Ethiopian [place] sheath and took a 4 -Ethiopian straight pigtail catheter into the aortic root and performed distal aortogram with runoff and then exchanged for a 4-Ethiopian IM catheter, engaged the right renal artery, took standard views and t hen the left main artery, and took standard views. Then, I removed the catheter and sheath, and manu al pressure was applied with good hemostasis. Findings: Peripheral angiogram; 1.Distal aorta is patent. 2.Right common iliac, internal iliac, femoral artery are patent without significant disease, the rig ht SFA has diffuse 20% to 30% stenosis and the profunda is patent, below the knee vessels are also pa tent with diffuse 20% to 30% stenosis. 3.Left common iliac, left internal iliac, left common femoral are normal, the left profunda is paten t, the left SFA is with also diffuse irregularities and disease ranging between 20% to 30%, and below the knee also diffuse mild disease is present. Renal angiogram; 1.Right renal artery has mid 50% stenosis. 2.Left renal artery is large and normal and no calcifications of the vessel. Conclusion: 1.Calcified peripheral vessels with no significant peripheral vascular disease. 2.Moderate right renal artery stenosis and the left renal artery is normal and no calcifications. Plan: Medical management. SR/MODL Voice ID: [id number] Report ID: [id number]
== END 2022-10-13 15:34 | disposition home or self-care (01) ==
LOC: CCL 10:46
PROVIDERS: ATTEND Internal Medicine
PROC: B41D1ZZ Fluoroscopy of Aorta and Bilateral Lower Extremity Arteries using Low Osmolar Contrast (ICD-10-PCS; principal; 2022-10-13)
PROC: B4181ZZ Fluoroscopy of Bilateral Renal Arteries using Low Osmolar Contrast (ICD-10-PCS; 2022-10-13)
DX: I70.1 Atherosclerosis of renal artery (principal); I70.203 Unspecified atherosclerosis of native arteries of extremities, bilateral legs; I25.10 Atherosclerotic heart disease of native coronary artery without angina pectoris; I12.0 Hypertensive chronic kidney disease with stage 5 chronic kidney disease or end stage renal disease; E11.22 Type 2 diabetes mellitus with diabetic chronic kidney disease; N18.6 End stage renal disease; I71.21 Aneurysm of the ascending aorta, without rupture; I48.91 Unspecified atrial fibrillation; E78.5 Hyperlipidemia, unspecified; Z87.891 Personal history of nicotine dependence; Z79.4 Long term (current) use of insulin
CPT/HCPCS: 93005; 85025; 80048; 36415; 85610; 85730; 71046; 75630; 36252; J0360 ×2; J2001; J2250; J3010; J7040; J1644; 36200; 76937; C1893; J0461

== ENCOUNTER 2024-04-08 09:16 | Emergency (ER) | payer OTHER ==
--- NOTE | 2024-04-08 10:26 | RAD REPORT ---
EXAM DESCRIPTION: CT - Head Brain Wo Cont - 04/08/2024 10:14 am CLINICAL HISTORY: Pain;Trauma COMPARISON: Head Brain Wo Cont dated 03/10/2021; Head Brain W/Wo Con dated 06/18/2017 TECHNIQUE: All CT scans are performed using dose optimization technique as appropriate and may inclu de automated exposure control or mA/KV adjustment according to patient size. FINDINGS: No intracranial hemorrhage, hydrocephalus or extra-axial fluid collection.No areas of brai n edema or evidence of midline shift. Remote right parietal lobe cortical infarct. Remote left ledger poster ior frontal lobe infarct. Remote left cerebellar infarct. Cerebral atrophy. Intracranial atherosclero sis. The paranasal sinuses and mastoids are clear. The calvarium is intact. IMPRESSION: No acute intracranial abnormality.
--- NOTE | 2024-04-08 10:34 | RAD REPORT ---
EXAM DESCRIPTION: CT - Thorax Wo Con - 04/08/2024 10:14 am CLINICAL HISTORY: Pain;Trauma COMPARISON: Chest Angio dated 01/14/2022; THORAX WO CONTRAST dated 05/30/2012; THORAX W CONTRAST dated 11/12/2009; Head Brain Wo Cont dated 04/08/2024 FINDINGS: Chest Wall: Multinodular thyroid which are unchanged since 01/14/2022. These do not requir e follow-up . Lungs: Masslike subpleural thickening in the right lower lobe consistent with round atelectasis secon dylon to the underlying chronic pleural effusion. Pleura: Chronic right pleural effusion. Trace left effusion. Mediastinum/juwan: No pathologic lymphadenopathy. Trace fluid present within the midesophagus. Thicken ed distal esophagus. Pulmonary arteries/Aorta: Limited evaluation without contrast. No aortic aneurysm. Heart: No significant pericardial effusion. Normal heart size. Coronary calcifications. Aortic valve calcifications. Upper abdomen: Atrophic kidneys. Incompletely characterized bilateral renal lesions which are statist ically benign. Partial gastrectomy. Cholelithiasis suspected. No CT is acute cholecystitis. Bones: Remote rib fractures are present. Left shoulder arthroplasty. Sternotomy. Possible acute nondi splaced left fourth, fifth, and sixth rib fractures. All CT scans are performed using dose optimization technique as appropriate and may include automated exposure control or mA/KV adjustment according to patient size. IMPRESSION: Remote rib fractures . Nondisplaced left fourth through sixth rib fractures anteriorly w hich may be acute. Correlate with site of pain. No pneumothorax . Other incidental findings as noted above.
--- NOTE | 2024-04-08 10:46 | ER ---
Nurse's Notes [facility] Name: Richard Rodriguez Age: 68 yrs Sex: Male : 1955 Arrival Date: 04/08/2024 Time: 09:16 Bed 7 Private MD: Diagnosis: Multiple fractures of ribs, left side;Contusion of unspecified part of head Presentation: 04/08 09:40 Chief complaint: Patient states: fall yesterday, hit head without LOC; pt. reports ar6 dialysis will not see pt. until he is cleared. Coronavirus screen: Vaccine status: Patient reports receiving the 2nd dose of the covid vaccine. Client denies travel out of the [place] in the last 14 days. At this time, the client does not indicate any symptoms associated with coronavirus-19. Ebola Screen: Patient negative for fever greater than or equal to 101.5 degrees Fahrenheit, and additional compatible Ebola Virus Disease symptoms Patient denies exposure to infectious person. Patient denies travel to an Ebola-affected area in the 21 days before illness onset. No symptoms or risks identified at this time. Initial Sepsis Screen: Does the patient meet any 2 criteria? No. Patient's initial sepsis screen is negative. Does the patient have a suspected source of infection? No. Patient's initial sepsis screen is negative. Risk Assessment: Do you want to hurt yourself or someone else? Patient reports no desire to harm self or others. Onset of symptoms was April 07, 2024. 09:40 Method Of Arrival: Ambulatory ar6 09:40 Acuity: JERAD 4 ar6 09:40 Mechanism of Injury: Fall from standing position. an unknown distance. ar6 09:40 Care prior to arrival: None. Trauma event details: Injury occurred in the [address] Triage Assessment: 11:14 General: Appears in no apparent distress. comfortable, Behavior is calm, cooperative, ar6 appropriate for age. Pain: Complains of pain in chest Pain does not radiate. Pain radiates to chest Quality of pain is described as dull, Pain began 1 day ago. EENT: Oral mucosa is moist. Neuro: Level of Consciousness is awake, alert, obeys commands, Oriented to person, place, time, situation. Cardiovascular: Capillary refill < 3 seconds. Respiratory: Airway is patent. GI: Abdomen is round non-distended. : No signs and/or symptoms were reported regarding the genitourinary system. Derm: Skin is intact, has skin tears on left arm abrasions. Musculoskeletal: Capillary refill < 3 seconds. Historical: - PMHx: 11:14 CVA; Dialysis; Diabetes - IDDM; Hyperlipidemia; Gout; Hypertension; Myocardial ar6 infarction; Sleep Apnea; - Immunization history:: Adult Immunizations up to date. - Infectious Disease History:: Denies. - Immunization history: Last tetanus immunization: - up to date. - Social history:: Smoking status: Patient denies any tobacco usage or history of. Screenin:45 [facility] ED Fall Risk Assessment (Adult) History of falling in the last 3 months, ar6 including since admission Yes- single mechanical fall (1 pt) Confusion or Disorientation No (0 pts) Intoxicated or Sedated No (0 pts) Impaired Gait Yes (1 pt) Mobility Assist Device Used Yes (1 pt) Altered Elimination No (0 pt) Score/Fall Risk Level 3 or more points = High Risk Oriented to surroundings, Maintained a safe environment, Educated pt \T\ family on fall prevention, incl call for assistance when getting out of bed, Assessed \T\ reinforced patient's understanding of fall precautions, Provided non-skid footwear, Hourly rounding (assess needs \T\ fall precautionary measures) done, Used ambulatory aids as needed (educated on \T\ assisted with), Used gait belt as appropriate Implemented a Fall Risk Plan of Care, Offered frequent toileting (1:1 observation), Remained with patient while ambulating, Utilized family, sitter, or virtual customer services supervisor as indicated. Abuse screen: Denies threats or abuse. Denies injuries from another. Nutritional screening: No deficits noted. Tuberculosis screening: No symptoms or risk factors identified. Primary Survey: 09:40 A: The client is awake and alert. The airway is patent. ar6 11:28 NO uncontrolled hemorrhage observed. Breathing/Chest: Spontaneous respiratory effort, ar6 equal unlabored respirations, breath sounds clear bilaterally, regular pattern, symmetrical chest rise and fall. Circulation: No external hemorrhage present. Regular and strong central pulse, skin warm/dry/normal color. Disability Pupils are equal, round, reactive to light and accommodation. Client is alert. Exposure/Environment: All clothing and personal items were removed. Forensic evidence collection is not deemed to be indicated at this time. Items placed in patient belonging bag. A warming method has been applied: A warm blanket has been provided to the patient. Reassessment Alertness and Airway: Awake and alert. The airway is patent. Breathing: Spontaneous respiratory effort, equal unlabored respirations, breath sounds clear bilaterally, regular pattern with symmetrical chest rise and fall. Circulation: No external hemorrhage noted. Regular and strong central pulse, skin warm/dry/normal color. Disability: Pupils Pupils are equal, round, reactive to light and accomodation. Alert. Assessment: 09:45 Reassessment: No changes from previously documented assessment. Patient and/or family ar6 updated on plan of care and expected duration. Pain level reassessed. 09:45 General: Appears in no apparent distress. comfortable, Behavior is calm, cooperative, ar6 appropriate for age. Pain: Complains of pain in chest Pain does not radiate. Quality of pain is described as dull, Pain began 1 day ago. Neuro: Level of Consciousness is awake, alert, obeys commands, Oriented to person, place, time, situation. Cardiovascular: Capillary refill < 3 seconds. Respiratory: Airway is patent. GI: Abdomen is round non-distended. : No signs and/or symptoms were reported regarding the genitourinary system. EENT: No signs and/or symptoms were reported regarding the EENT system. Derm: Skin is intact, has skin tears on left arm abrasions Skin is dry, Skin is pink, warm \T\ dry. Musculoskeletal: No signs and/or symptoms reported regarding the musculoskeletal system. Vital Signs: 09:27 BP 206 / 83; Pulse 73; Resp 16; Temp 97.7; Pulse Ox 98% on R/A; Weight 92.99 kg; Height em1 5 ft. 10 in. ; Pain 8/10; 09:40 BP 156 / 88; Pulse 88; Resp 18; Temp 98.1; Pulse Ox 99% on R/A; Weight 108.86 kg; ar6 Height 5 ft. 10 in. ; 11:14 BP 156 / 91; Pulse 84; Resp 18; Pulse Ox 100% ; ar6 09:40 Body Mass Index 34.44 (108.86 kg, 177.8 cm) ar6 09:27 Pain Scale: Adult em1 [place] Coma Score: 09:35 Eye Response: spontaneous(4). Motor Response: obeys commands(6). Verbal Response: jr8 oriented(5). Total: 15. 09:40 Eye Response: spontaneous(4). Motor Response: obeys commands(6). Verbal Response: ar6 oriented(5). Total: 15. Trauma Score (Adult): 09:40 Eye Response: spontaneous(1); Verbal Response: oriented(1); Motor Response: obeys ar6 commands(2); Systolic BP: > 89 mm Hg(4); Respiratory Rate: 10 to 29 per min(4); [place] Score: 15; Trauma Score: 12 ED Course: 09:19 Patient arrived in ED. im 09:20 Rafi Martinez PA is PHCP. jr8 09:20 Doyle Chauhan MD is Attending Physician. jr8 09:40 Patient maintains SpO2 saturation greater than 95% on room air. ar6 09:45 No apparent distress. ar6 09:45 Patient has correct armband on for positive identification. Bed in low position. Call ar6 light in reach. Side rails up X2. Provided Education on: fall precautions. 09:45 No provider procedures requiring assistance completed. Patient did not have IV access ar6 during this emergency room visit. 10:16 CT Head Brain wo Cont In Process Unspecified. EDMS 10:[address] In Process Unspecified. EDMS 11:14 Triage completed. ar6 11:14 Arm band placed on right wrist. EKG completed in triage. Results shown to MD. ar6 11:31 Thermoregulation: warm blanket given to patient. ar6 Administered Medications: No medications were administered Medication: 09:45 VIS not applicable for this client. ar6 Outcome: 09:40 Patient's length of stay was not longer than 2 hours. ar6 09:45 Discharged to home ambulatory, ar6 09:45 Condition: good 09:45 Discharge instructions given to patient, family, 10:45 Discharge ordered by MD. jr8 11:32 Patient left the ED. ar6 Signatures: Dispatcher [employer] EDLionel Coffey em1 Rafi Martinez PA PA jr8 Sarah Guevara Amber, RN RN ar6
--- NOTE | 2024-04-08 10:46 | EDPHYS ---
Physician Documentation [facility] Name: Richard Rodriguez Age: 68 yrs Sex: Male : 1955 Arrival Date: 04/08/2024 Time: 09:16 Bed 7 Private MD: ED Physician Doyle Chauhan HPI: 04/08 09:35 This 68 yrs old Male presents to ER via Unassigned with complaints of Head Injury jr8 Without LOC-Adult. 09:35 The patient or guardian reports pain. The complaints affect the left side of forehead. jr8 Context of injury: The problem was sustained at home, resulted from a fall, slipped, from a standing position. Onset: The symptoms/episode began/occurred acutely, this morning. Associated signs and symptoms: Loss of consciousness: This patient did not experience any loss of consciousness. Severity of symptoms: At their worst the symptoms were moderate, in the emergency department the symptoms have improved. The patient has not experienced similar symptoms in the past. The patient has not recently seen a physician. Patient stated that he was getting out of bed to go to kitchen. Slipped on cane falling on left side hitting left side of head and left lower ribs. Denies LOC. Stated that he is feeling better but that dialysis wouldn't let him come in until evaluated . Historical: - PMHx: 11:14 CVA; Dialysis; Diabetes - IDDM; Hyperlipidemia; Gout; Hypertension; Myocardial ar6 infarction; Sleep Apnea; - Immunization history:: Adult Immunizations up to date. - Infectious Disease History:: Denies. - Immunization history: Last tetanus immunization: - up to date. - Social history:: Smoking status: Patient denies any tobacco usage or history of. ROS: 09:35 Eyes: Negative for injury, pain, redness, and discharge, ENT: Negative for injury, jr8 pain, and discharge, Neck: Negative for injury, pain, and swelling, Cardiovascular: Negative for chest pain, palpitations, and edema, Respiratory: Negative for shortness of breath, cough, wheezing, and pleuritic chest pain, Abdomen/GI: Negative for abdominal pain, nausea, vomiting, diarrhea, and constipation, Back: Negative for injury and pain, MS/Extremity: Negative for injury and deformity, Skin: positive for bruising Neuro: Negative for headache, weakness, numbness, tingling, and seizure, Exam: 09:35 Constitutional: This is a well developed, well nourished patient who is awake, alert, jr8 and in no acute distress. Eyes: Pupils equal round and reactive to light, extra-ocular motions intact. Lids and lashes normal. Conjunctiva and sclera are non-icteric and not injected. Cornea within normal limits. Periorbital areas with no swelling, redness, or edema. Neck: Trachea midline, no thyromegaly or masses palpated, and no cervical lymphadenopathy. Supple, full range of motion without nuchal rigidity, or vertebral point tenderness. No Meningismus. Cardiovascular: Regular rate and rhythm with a normal S1 and S2. No gallops, murmurs, or rubs. Normal PMI, no JVD. No pulse deficits. Respiratory: Lungs have equal breath sounds bilaterally, clear to auscultation and percussion. No rales, rhonchi or wheezes noted. No increased work of breathing, no retractions or nasal flaring. Abdomen/GI: Soft, non-tender, with normal bowel sounds. No distension or tympany. No guarding or rebound. No evidence of tenderness throughout. Back: No spinal tenderness. No costovertebral tenderness. Full range of motion. Skin: Warm, dry with normal turgor. Normal color with no rashes, no lesions, and no evidence of cellulitis. MS/ Extremity: Pulses equal, no cyanosis. Neurovascular intact. Full, normal range of motion. Neuro: Awake and alert, GCS 15, oriented to person, place, time, and situation. grossly intact. Motor strength 5/5 in all extremities. Sensory grossly intact. Cerebellar exam normal. Normal gait. 09:35 Head/face: Noted is ecchymosis, that is mild, of the left side of forehead, 09:35 Chest/axilla: Inspection: normal, Palpation: tenderness, that is mild, of the left lateral anterior chest, Vital Signs: 09:27 BP 206 / 83; Pulse 73; Resp 16; Temp 97.7; Pulse Ox 98% on R/A; Weight 92.99 kg; Height em1 5 ft. 10 in. ; Pain 8/10; 09:40 BP 156 / 88; Pulse 88; Resp 18; Temp 98.1; Pulse Ox 99% on R/A; Weight 108.86 kg; ar6 Height 5 ft. 10 in. ; 11:14 BP 156 / 91; Pulse 84; Resp 18; Pulse Ox 100% ; ar6 09:40 Body Mass Index 34.44 (108.86 kg, 177.8 cm) ar6 09:27 Pain Scale: Adult em1 Balbina Coma Score: 09:35 Eye Response: spontaneous(4). Motor Response: obeys commands(6). Verbal Response: jr8 oriented(5). Total: 15. 09:40 Eye Response: spontaneous(4). Motor Response: obeys commands(6). Verbal Response: ar6 oriented(5). Total: 15. Trauma Score (Adult): 09:40 Eye Response: spontaneous(1); Verbal Response: oriented(1); Motor Response: obeys ar6 commands(2); Systolic BP: > 89 mm Hg(4); Respiratory Rate: 10 to 29 per min(4); Balbina Score: 15; Trauma Score: 12 MDM: 09:20 Patient medically screened. jr8 10:43 Differential diagnosis: Contusion of Hematoma on Intracranial bleed- Concussion jr8 Fracture. Data reviewed: vital signs, nurses notes, radiologic studies, CT scan. Counseling: I had a detailed discussion with the patient and/or guardian regarding the historical points, exam findings, and any diagnostic results supporting the discharge/admit diagnosis, radiology results, the need for outpatient follow up, a family practitioner, to return to the emergency department if symptoms worsen or persist or if there are any questions or concerns that arise at home. ED course: Discussed with family and patient that there is likely mild nondisplaced acute left 4 through 6 anterior rib fracture as he does have mild tenderness there. Otherwise no other acute new traumatic findings of the head CT or chest CT. Will need to follow-up with family practice but otherwise can be cleared to be dialyzed and take his blood pressure medicine. Patient and family understood and agreed with plan at this time.. 04/08 09:35 Order name: CT Head Brain wo Cont; Complete Time: 10:39 jr8 04/08 09:35 Order name: Chest Wo Con CT; Complete Time: 10:39 jr8 Administered Medications: No medications were administered Disposition Summary: 04/08/24 10:45 Discharge Ordered Notes: Location: Home jr8 Problem: new jr8 Symptoms: have improved jr8 Condition: Stable jr8 Diagnosis - Multiple fractures of ribs, left side jr8 - Contusion of unspecified part of head jr8 Followup: jr8 - With: Private Physician - When: 2 - 3 days - Reason: Recheck today's complaints, Continuance of care, Re-evaluation by your physician Discharge Instructions: - Discharge Summary Sheet jr8 - Rib Fracture jr8 Forms: - Medication Reconciliation Form jr8 - Antibiotic Education jr8 - Prescription Opioid Use jr8 - Patient Portal Instructions jr8 - Leadership Thank You Letter jr8 Signatures: Dispatcher [employer] EDRafi Light PA PA jr8 Edie Nunn, RN RN ar6
[2024-04-08 11:41] VITALS: TEMP 98.1
[2024-04-08 11:42] VITALS: BP 156/91; O2SAT 100
== END 2024-04-08 11:32 | disposition home or self-care (01) ==
LOC: ER 09:16
DX: S22.42XA Multiple fractures of ribs, left side, initial encounter for closed fracture (principal); S00.83XA Contusion of other part of head, initial encounter; W01.0XXA Fall on same level from slipping, tripping and stumbling without subsequent striking against object, initial encounter; Z99.2 Dependence on renal dialysis
CPT/HCPCS: 70450; 71250; 99283